=== PATIENT | female | born 1950 | race Caucasian/White ===

== ENCOUNTER 2017-07-27 16:47 | Emergency (ER) | payer MEDICARE, SELFPAY | END 2017-07-27 20:01 | disposition home or self-care (01) | PROVIDERS: Emergency Provider Emergency Medicine; Family Provider Family Medicine; PCP Family Medicine; Visit Provider Emergency Medicine | DX: R47.1 Dysarthria and anarthria (principal) | CPT/HCPCS: 70450; 81003; 81015; 99284 ==

== ENCOUNTER → 2018-01-30 08:14 | Outpatient (CLI) | payer MEDICARE, SELFPAY ==
[2018-01-30 09:40] LABS: Add Manual Diff / Slide Review NO; Basophils Percent Auto 0.6 % (0-2); Hematocrit 37.4 % (36-46); Hemoglobin 12.8 g/dL (12.0-16.0); Mean Corpuscular HGB Conc 34.1 % (30-36); Mean Corpuscular Hemoglobin 31.6 PG (26-34); Mean Corpuscular Volume 92.6 fL (80-100); Monocytes Percent Auto 6.8 % (3-14); Neutrophils Absolute Auto 3300 /uL (3000-5900); Neutrophils Percent Auto 47.6 % (50-75); Platelet Count 194 X10^3/uL (150-400); Red Blood Cell Count 4.04 X10^6/uL (4.0-5.2); Red Cell Distribution Width 12.8 % (11.6-14.8)
[2018-01-30 09:54] LABS: Alanine Aminotransferase 58 IU/L (9-52); Albumin 4.4 g/dL (3.5-5.0); Albumin Globulin Ratio 1.5 (1.0-2.8); Alkaline Phosphatase 89 U/L (38-126); Aspartate Aminotransferase 58 IU/L (14-36); BUN Creatinine Ratio 22.9 (6-22); Bilirubin Total 0.5 mg/dL (0.2-1.3); Blood Urea Nitrogen 16 mg/dL (7-17); Calcium 9.6 mg/dL (8.4-10.2); Carbon Dioxide 28 mmol/L (22-32); Chloride 100 mmol/L (98-107); Cholesterol 239 mg/dL (140-199); Estimated Glomerular Filt Rate > 60.0 mL/min (>60); Glucose 144 mg/dL (80-110); HDL Cholesterol 40 mg/dL (40-60); HEMOLYSIS < 15 (0-50); LDL Cholesterol Calculated 138 mg/dL (<100); Sodium 141 mmol/L (137-145); Total Protein 7.4 g/dL (6.3-8.2); Triglycerides 305 mg/dL (35-150)
[2018-01-30 10:08] LABS: Hemoglobin A1C% w Est Avg Glu 8.2 % (4.0-6.0)
[2018-02-01 08:30] LABS: Valproic Acid (Depakene) Total 74.3 mg/L (50.0-100.0)
== END ==
PROVIDERS: Family Provider Family Medicine; PCP Family Medicine; Visit Provider Psychiatry & Neurology Psychiatry
DX: Z51.81 Encounter for therapeutic drug level monitoring (principal)
CPT/HCPCS: 36415; 80053; 80061; 80164; 83036; 84443; 85025

== ENCOUNTER → 2018-04-26 12:58 | Outpatient (CLI) | payer MEDICARE, SELFPAY ==
[2018-04-26 15:38] LABS: Hemoglobin A1C% w Est Avg Glu 7.9 % (4.0-6.0)
[2018-04-30 03:58] LABS: Valproic Acid (Depakene) Total 128.4 mg/L (50.0-100.0)
== END ==
PROVIDERS: Family Provider Family Medicine; PCP Family Medicine; Visit Provider Psychiatry & Neurology Psychiatry
DX: E11.9 Type 2 diabetes mellitus without complications (principal); E03.9 Hypothyroidism, unspecified; F31.4 Bipolar disorder, current episode depressed, severe, without psychotic features; Z51.81 Encounter for therapeutic drug level monitoring
CPT/HCPCS: 36415; 80164; 83036; 84443

== ENCOUNTER → 2018-05-07 13:00 | Outpatient (CLI) | payer MEDICARE, SELFPAY ==
--- NOTE | 2018-05-07 13:09 | DI.RAD.S_ITS ---
PROCEDURE: XR FOOT RT MIN 3V INDICATIONS: Foot pain, bilaterally, concern for gout vs CMT, recent DM2 TECHNIQUE: 3 views of the foot were acquired. COMPARISON: Hospital, CR, XR ANKLE RT MIN 3V, 05/07/2018, 13:26. FINDINGS: Bones: No fractures or dislocations. A 5 mm lucency is noted at the base of the fifth metatarsal. There is [id number] degenerative joint disease at the first metatarsophalangeal joint and multiple interphalangeal joint. There is calcaneal spurring. Bony erosion of the medial aspect of the navicula. Soft tissues: No tibiotalar joint effusion. Achilles tendon appears normal. IMPRESSION: 1. Mild to moderate degenerative joint disease. 2. There is bony erosion in the medial aspect of the navicula. Cannot rule out gout. 3. Calcaneal spurring. 4. Osteopenia. 5. A benign appearing lucency is noted at the base of the fifth metatarsal, probably a bone cyst. Dictated by: Miriam Acuna M.D. on 05/07/2018 at 16:51 Approved by: Miriam Acuna M.D. on 05/07/2018 at 16:59
--- NOTE | 2018-05-07 13:09 | DI.RAD.S_ITS ---
PROCEDURE: XR FOOT LT MIN 3V INDICATIONS: Foot pain, bilaterally, concern for gout vs CMT, recent DM2 TECHNIQUE: The views of the foot were acquired. COMPARISON: [facility], CR, XR ANKLE LT MIN 3V, 05/07/2018, 13:29. FINDINGS: Bones: There are postsurgical changes with a surgical plate and multiple surgical screws in the distal tibia and fibula. No fractures or dislocations. No suspicious bony lesions. There is mild degenerative joint disease in multiple interphalangeal joints. Osteopenia. Soft tissues: No tibiotalar joint effusion. Achilles tendon appears normal. IMPRESSION: 1. Postsurgical changes. 2. Mild degenerative changes. 3. Osteopenia. Dictated by: Miriam Acuna M.D. on 05/07/2018 at 17:01 Approved by: Miriam Acuna M.D. on 05/07/2018 at 17:03
--- NOTE | 2018-05-07 13:09 | DI.RAD.S_ITS ---
PROCEDURE: XR ANKLE RT MIN 3V INDICATIONS: Foot pain, bilaterally, concern for gout vs CMT, recent DM2 TECHNIQUE: 3 views of the ankle were acquired. COMPARISON: [facility], CR, XR FOOT RT MIN 3V, 05/07/2018, 13:24. FINDINGS: Bones: No fractures or dislocations. Ankle mortise is normally aligned. There is a benign-appearing lucency at the base of the fifth metatarsal. Calcaneal spurring. Soft tissues: No tibiotalar joint effusion. Achilles tendon appears normal. Mild diffuse soft tissue swelling. IMPRESSION: 1. No fracture or dislocation. 2. Calcaneal spurring. Dictated by: Miriam Acuna M.D. on 05/07/2018 at 16:59 Approved by: Miriam Acuna M.D. on 05/07/2018 at 17:00
--- NOTE | 2018-05-07 13:09 | DI.RAD.S_ITS ---
PROCEDURE: XR ANKLE LT MIN 3V INDICATIONS: Foot pain, bilaterally, concern for gout vs CMT, recent DM2 TECHNIQUE: 3 views of the ankle were acquired. COMPARISON: [facility], CR, XR FOOT LT MIN 3V, 05/07/2018, 13:28. FINDINGS: Bones: There is a surgical plate in the distal fibula. Multiple surgical screws are present in distal fibula and distal tibia. No fractures or dislocations. Ankle mortise is normally aligned. No suspicious bony lesions. Soft tissues: No tibiotalar joint effusion. Achilles tendon appears normal. Generalized soft tissue swelling. IMPRESSION: The post surgical changes. No acute adenopathy. Dictated by: Miriam Acuna M.D. on 05/07/2018 at 17:03 Approved by: Miriam Acuna M.D. on 05/07/2018 at 17:04
[2018-05-07 15:05] LABS: Uric Acid 9.2 mg/dL (2.5-6.2)
== END ==
PROVIDERS: Family Medicine; PCP Family Medicine; Visit Provider Family Medicine
DX: M10.9 Gout, unspecified (principal); M79.672 Pain in left foot; M79.671 Pain in right foot; E11.9 Type 2 diabetes mellitus without complications; M19.072 Primary osteoarthritis, left ankle and foot; M19.071 Primary osteoarthritis, right ankle and foot; M77.32 Calcaneal spur, left foot; M77.31 Calcaneal spur, right foot; M85.872 Other specified disorders of bone density and structure, left ankle and foot; M85.871 Other specified disorders of bone density and structure, right ankle and foot
CPT/HCPCS: 36415; 73610; 73630; 84550

== ENCOUNTER 2018-05-11 16:05 | Emergency (ER) | payer MEDICARE, SELFPAY ==
[2018-05-11 16:09] VITALS: BP 144/90; PULSE 95; RESP 18; TEMP 36.4; O2SAT 100; BMI 43.4
--- NOTE | 2018-05-11 16:47 | ED.PSYCH ---
HPI - Psych General Chief Complaint: Psychiatric Symptoms Stated Complaint: PSYCHOTIC SYMPTOMS Time Seen by Provider: 05/11/18 16:39 Source: patient Mode of arrival: ambulatory Limitations: no limitations History of Present Illness HPI Narrative: Patient is a 68-year-old female with known bipolar 1 disorder here for evaluation for which she thinks is a manic episode. Patient states she has been in this state for several days if not a week or longer. She recently saw all her mental health provider who changed her to perphenazine and continued her on her Depakote. Patient states she has been taking these medicines. She has also been taking her Ativan. She states that at home she cannot sleep despite all of her sleep aid medicines. She states that she is not currently hearing voices however she states that she has been in this situation in the past with the lack of sleep and she does start to hear voices as time goes on. She is not suicidal. He is not homicidal. She states that she does not feel safe at home because of paranoia she cannot give a specific thing that she is paranoid about however she states that she paces back in forth around her house. She was at her grandson's birthday constitution party today which she states put me over the edge Related Data Previous Rx's Medication Instructions Recorded lisinopril 10 mg tablet 10 mg PO QDAY #90 tab 10/02/17 atorvastatin 40 mg tablet 40 mg PO HS #90 tab 03/25/18 divalproex ER 500 mg 1,500 mg PO BEDTIME #90 tab 04/30/18 tablet,extended release 24 hr zolpidem 10 mg tablet 10 mg PO BEDTIME #30 tab 04/30/18 levothyroxine 150 mcg tablet 150 mcg PO DAILY #30 tab 05/06/18 lorazepam 1 mg tablet 1 mg PO Q4-6H PRN #60 tab MDD 6mg 05/08/18 perphenazine 8 mg tablet 8 mg PO BID #60 tab 05/08/18 Allergies Allergy/AdvReac Type Severity Reaction Status Date / Time quetiapine [QUETIAPINE] Allergy Severe TONGUE Verified 05/01/18 16:29 SWELLING Sulfa (Sulfonamide Allergy Mild RASH Verified 05/01/18 16:29 Antibiotics) haloperidol [HALOPERIDOL] Allergy Unknown Verified 05/01/18 16:29 lithium [LITHIUM] Allergy Unknown Verified 05/01/18 16:29 risperidone [RISPERIDONE] Allergy Unknown Verified 05/01/18 16:29 Review of Systems Constitutional Denies fever(s), Denies frequent falls, Denies headache(s) and Denies weakness ENT Ears, Nose, Mouth, and Throat: Denies dizziness, Denies headache(s) and Denies disequilibrium Cardiovascular Denies chest pain, Denies syncope and Denies dyspnea Respiratory Denies dyspnea Gastrointestinal Gastrointestinal: Denies abdominal pain, Denies nausea and Denies vomiting Genitourinary Denies dysuria Musculoskeletal Denies myalgias and Denies arthralgias Integumentary/Breasts Denies rash Neurologic Reports behavioral changes, Denies confusion, Denies dizziness, Denies syncope, Denies frequent falls, Denies headache(s), Denies disequilibrium and Denies weakness Psychiatric Reports anxiety, Reports behavioral changes, Denies confusion, Denies depression, Reports difficulty concentrating, Denies auditory hallucinations, Reports irritability, Denies mood swings, Reports paranoia, Denies homicidal ideation and Denies suicidal ideation Hematologic/Lymphatic Comments: Not on anticoagulation Allergic/Immunologic Denies urticaria PFSH Medical History DM type 2 (diabetes mellitus, type 2) (Chronic) Hypothyroidism (Chronic) Hypertension (Chronic) Sleep apnea (Chronic 08/2015) Ankle pain (Chronic 2007) Anxiety (Chronic 1994) Bipolar disorder (Chronic 1989) Cataract (Chronic 2011) Depression (Chronic 1961) Foot pain (Chronic ~2002) Hayfever (Chronic ~1989) Peripheral neuropathy (Chronic 2013) RLS (restless legs syndrome) (Chronic 1999) Urinary incontinence (Chronic) CTS (carpal tunnel syndrome) (Resolved 1987) Chicken pox (Resolved) Fractures (Resolved 2007) Measles (Resolved) Surgical History Anesthesia complication (Resolved) History of carpal tunnel repair (Resolved ~1997) History of surgery (Resolved 04/2008) Family History Child Age: 46 Arthritis Mother Heart disease Family history of fraternal twins Family history of identical twins Levin gestation with first Social History Smoking Status: Never smoker Family History Child Age: 46 Arthritis Mother Heart disease Family history of fraternal twins Family history of identical twins Levin gestation with first Social History Smoking Status: Never smoker Exam Initial Vital Signs Initial Vital Signs: Vital Signs Temperature 97.6 F 05/11/18 16:09 Pulse Rate 95 H 05/11/18 16:09 Respiratory Rate 18 05/11/18 16:09 Blood Pressure 144/90 H 05/11/18 16:09 Pulse Oximetry 100 05/11/18 16:09 Const General: cooperative, healthy appearing, comfortable, well developed, well groomed and No acute distress Orientation: alert, awake and oriented x3 HENMT Head: normal to inspection and normocephalic Resp Effort & Inspection: normal respiratory effort Auscultation: clear to auscultation bilaterally Cardio Rate: regular rate Rhythm: regular rhythm Pulses: radial pulses present GI Inspection: non-distended Palpation: soft, No firm and No tender Skin Lesions: no lesions Rashes: no rashes Neuro General: alert and oriented x3 Cognition: normal cognition Speech: speech normal Gait: normal gait Motor: muscle tone normal throughout Extrem General: normal to inspection, capillary refill normal and No edema Psych Appearance: grossly normal and well kempt Mental Status: mental status grossly normal and other (Flat) Speech and Movement: speech and movement normal, not agitated, speech clear, speech not delayed, speech not pressured and restless Mood: not anxious, No angry and other (Flat) Affect: sad Attitude: cooperative Thought Process: normal Thought Content: normal Judgment: judgment good Course Orders Ordered: ED Orders 05/11/18 16:36 Acetaminophen Stat Complete Blood Count AUTO DIFF Stat Comprehensive Metabolic Panel Stat Ethanol (ETOH) Stat Salicylate Stat Thyroid Stimulating Hormone Stat Valproic Acid (Depakene) Total Stat 05/11/18 16:50 Urine Drug Screen, Rapid Stat Urine Microscopic Stat 05/11/18 16:56 Triiodothyronine T3 Free Stat Vital Signs - 8 hr 05/11/18 16:09 Temperature 97.6 F Pulse Rate 95 H Respiratory Rate 18 Blood Pressure 144/90 H Pulse Oximetry 100 MDM - Psych Lab Data Attestation: I reviewed the patient's lab results. Result diagrams: 05/11/18 16:36 05/11/18 16:36 Lab Results 05/11/18 05/11/18 05/11/18 Range/Units 16:36 16:36 16:36 WBC 8.9 (4.5-11.0) X10^3/uL RBC 3.98 L (4.0-5.2) X10^6/uL Hgb 12.9 (12.0-16.0) g/dL Hct 37.5 (36-46) % MCV 94.1 (80-100) fL MCH 32.5 (26-34) PG MCHC 34.5 (30-36) % RDW 13.8 (11.6-14.8) % Plt Count 187 (150-400) X10^3/uL Neut % (Auto) 53.1 (50-75) % Lymph % (Auto) 36.2 (25-40) % Gillespie % (Auto) 7.5 (3-14) % Eos % (Auto) 2.8 (2-4) % Baso % (Auto) 0.4 (0-2) % Neut # (Auto) 4700 (9602-1007) /uL Lymph # (Auto) 3200 (0738-6011) /uL Gillespie # (Auto) 700 (0-900) /uL Eos # (Auto) 200 (0-450) /uL Baso # (Auto) 0 (0-100) /uL Sodium 136 L (137-145) mmol/L Potassium 5.2 H (3.4-5.1) mmol/L Chloride 94 L (98-107) mmol/L Carbon Dioxide 30 (22-32) mmol/L BUN 21 H (7-17) mg/dL Creatinine 1.00 (0.52-1.04) mg/dL Estimated GFR 55.5 L (>60) mL/min BUN/Creatinine Ratio 21.0 (6-22) Glucose 214 H (80-110) mg/dL Calcium 9.9 (8.4-10.2) mg/dL Total Bilirubin 0.4 (0.2-1.3) mg/dL AST 46 H (14-36) IU/L ALT 43 (9-52) IU/L Alkaline Phosphatase 114 (38-126) U/L Total Protein 7.8 (6.3-8.2) g/dL Albumin 4.5 (3.5-5.0) g/dL Globulin 3.3 (1.7-4.1) g/dL Albumin/Globulin Ratio 1.4 (1.0-2.8) TSH 4.76 H D (0.47-4.68) uIU/mL Free T3 (2.77-5.27) pg/mL Urine RBC (0-5/HPF) Urine WBC (0-5/HPF) Ur Squamous Epith Cells Urine Bacteria (None) Ur Culture Indicated? Salicylates < 1.0 (<20) mg/dL Urine Opiates Screen (Negative) Ur Oxycodone Screen (Negative) Urine Methadone Screen (Negative) Acetaminophen < 10 L (10-30) ug/mL Ur Barbiturates Screen (Negative) U Tricyclic Antidepress (Negative) Ur Phencyclidine Scrn (Negative) Ur Amphetamines Screen (Negative) U Methamphetamines Scrn (Negative) Ur MDMA Scrn (Ecstasy) (Negative) U Benzodiazepines Scrn (Negative) Urine Cocaine Screen (Negative) U Marijuana (THC) Screen (Negative) Ethyl Alcohol < 10 mg/dL 05/11/18 05/11/18 05/11/18 Range/Units 16:50 16:50 16:56 WBC (4.5-11.0) X10^3/uL RBC (4.0-5.2) X10^6/uL Hgb (12.0-16.0) g/dL Hct (36-46) % MCV (80-100) fL MCH (26-34) PG MCHC (30-36) % RDW (11.6-14.8) % Plt Count (150-400) X10^3/uL Neut % (Auto) (50-75) % Lymph % (Auto) (25-40) % Gillespie % (Auto) (3-14) % Eos % (Auto) (2-4) % Baso % (Auto) (0-2) % Neut # (Auto) (9172-3881) /uL Lymph # (Auto) (4519-4295) /uL Gillespie # (Auto) (0-900) /uL Eos # (Auto) (0-450) /uL Baso # (Auto) (0-100) /uL Sodium (137-145) mmol/L Potassium (3.4-5.1) mmol/L Chloride (98-107) mmol/L Carbon Dioxide (22-32) mmol/L BUN (7-17) mg/dL Creatinine (0.52-1.04) mg/dL Estimated GFR (>60) mL/min BUN/Creatinine Ratio (6-22) Glucose (80-110) mg/dL Calcium (8.4-10.2) mg/dL Total Bilirubin (0.2-1.3) mg/dL AST (14-36) IU/L ALT (9-52) IU/L Alkaline Phosphatase (38-126) U/L Total Protein (6.3-8.2) g/dL Albumin (3.5-5.0) g/dL Globulin (1.7-4.1) g/dL Albumin/Globulin Ratio (1.0-2.8) TSH (0.47-4.68) uIU/mL Free T3 3.47 (2.77-5.27) pg/mL Urine RBC None seen (0-5/HPF) Urine WBC 5-10/hpf H (0-5/HPF) Ur Squamous Epith Cells 5-10 /hpf H Urine Bacteria None seen (None) Ur Culture Indicated? Cult not indicated Salicylates (<20) mg/dL Urine Opiates Screen Negative (Negative) Ur Oxycodone Screen Negative (Negative) Urine Methadone Screen Negative (Negative) Acetaminophen (10-30) ug/mL Ur Barbiturates Screen Negative (Negative) U Tricyclic Antidepress Negative (Negative) Ur Phencyclidine Scrn Negative (Negative) Ur Amphetamines Screen Negative (Negative) U Methamphetamines Scrn Negative (Negative) Ur MDMA Scrn (Ecstasy) Negative (Negative) U Benzodiazepines Scrn Positive H (Negative) Urine Cocaine Screen Negative (Negative) U Marijuana (THC) Screen Negative (Negative) Ethyl Alcohol mg/dL Urine Dip Bedside Urine Glucose Negative Bedside Urine Bilirubin - Negative Bedside Urine Ketone +/- 5 Urine Specific [place] 1.015 Bedside Urine Occult Blood +/- Bedside Urine pH 8.5 Bedside Urine Protein ++ 100 Bedside Urine Urobilinogen - Negative Bedside Urine Nitrite - Negative Bedside Urine Leukocytes - Negative Esterase MDM Narrative Medical decision making narrative: Patient with a history bipolar disorder and she states she is in a manic episode. She is not suicidal. Not homicidal. Has an elevated glucose level but is not in DKA. Recently had a change to her thyroid medicine and that has improved her TSH. No emergent condition currently regarding this. She has been taking her medicines. She is medically clear. Patient states she does not feel safe at home because of the paranoia and also the inability to sleep. She states that when she becomes sleep deprived is when she starts having auditory hallucinations. She is not currently having these. Patient would like to be admitted to the hospital. Will start the process of calling for a voluntary admission. Care turned over to night ED provider at change of shift for disposition. Discharge Plan Departure Prescriptions: No Action divalproex [Depakote ER] 500 mg tablet extended release 24 hr 1,500 mg PO BEDTIME Qty: 90 RF: 5 zolpidem 10 mg tablet 10 mg PO BEDTIME Qty: 30 RF: 5 perphenazine 8 mg tablet 8 mg PO BID Qty: 60 RF: 1 lorazepam 1 mg tablet 1 mg PO Q4-6H MDD 6mg PRN (Reason: severe anxiety or agitation) Qty: 60 RF: 0 atorvastatin 40 mg tablet 40 mg PO HS Qty: 90 RF: 2 levothyroxine 150 mcg tablet 150 mcg PO DAILY Qty: 30 RF: 3 lisinopril 10 mg tablet 10 mg PO QDAY Qty: 90 RF: 3
[2018-05-11 17:04] LABS: Acetaminophen < 10 ug/mL (10-30); Alanine Aminotransferase 43 IU/L (9-52); Albumin 4.5 g/dL (3.5-5.0); Albumin Globulin Ratio 1.4 (1.0-2.8); Alkaline Phosphatase 114 U/L (38-126); Aspartate Aminotransferase 46 IU/L (14-36); Bilirubin Total 0.4 mg/dL (0.2-1.3); Blood Urea Nitrogen 21 mg/dL (7-17); Calcium 9.9 mg/dL (8.4-10.2); Carbon Dioxide 30 mmol/L (22-32); Chloride 94 mmol/L (98-107); Estimated Glomerular Filt Rate 55.5 mL/min (>60); Ethanol (ETOH) < 10 mg/dL; Globulin 3.3 g/dL (1.7-4.1); Glucose 214 mg/dL (80-110); HEMOLYSIS 17 (0-50); Potassium 5.2 mmol/L (3.4-5.1); Sodium 136 mmol/L (137-145); Total Protein 7.8 g/dL (6.3-8.2)
[2018-05-11 17:09] LABS: Urine Amphetamines Negative (Negative); Urine Barbiturates Negative (Negative); Urine Benzodiazepines Positive (Negative); Urine Cocaine Negative (Negative); Urine MDMA Negative (Negative); Urine Methadone Negative (Negative); Urine Methamphetamines Negative (Negative); Urine Morphine/Opi cutoff 2000 Negative (Negative); Urine Oxycodone Negative (Negative); Urine Phencyclidine Negative (Negative); Urine Tetrahydrocannabinol Negative (Negative); Urine Tricyclic Antidepressant Negative (Negative)
[2018-05-11 17:12] LABS: Salicylate < 1.0 mg/dL (<20)
[2018-05-11 17:18] LABS: Add Manual Diff / Slide Review NO; Basophils Absolute Auto 0 /uL (0-100); Basophils Percent Auto 0.4 % (0-2); Eosinophils Absolute Auto 200 /uL (0-450); Eosinophils Percent Auto 2.8 % (2-4); Hematocrit 37.5 % (36-46); Hemoglobin 12.9 g/dL (12.0-16.0); Lymphocytes Absolute Auto 3200 /uL (1100-4500); Lymphocytes Percent Auto 36.2 % (25-40); Mean Corpuscular HGB Conc 34.5 % (30-36); Mean Corpuscular Hemoglobin 32.5 PG (26-34); Mean Corpuscular Volume 94.1 fL (80-100); Monocytes Absolute Auto 700 /uL (0-900); Monocytes Percent Auto 7.5 % (3-14); Neutrophils Absolute Auto 4700 /uL (1500-7000); Neutrophils Percent Auto 53.1 % (50-75); Platelet Count 187 X10^3/uL (150-400); Red Blood Cell Count 3.98 X10^6/uL (4.0-5.2); Red Cell Distribution Width 13.8 % (11.6-14.8); White Blood Cell Count 8.9 X10^3/uL (4.5-11.0)
[2018-05-11 17:34] LABS: Thyroid Stimulating Hormone 4.76 uIU/mL (0.47-4.68)
[2018-05-11 17:40] LABS: Free T3, Triiodothyronine Free 3.47 pg/mL (2.77-5.27)
[2018-05-11 17:53] LABS: Bacteria Urine None Seen; Culture Indicated Urine Cult Not Indicated; RBC Urine None Seen (0-5/HPF); Squamous Epithelial Cell Urine 5-10 /HPF; WBC Urine 5-10/HPF (0-5/HPF)
[2018-05-11] MEDS: ONDANSETRON 4 MG ODT SL (18:49)
[2018-05-11 19:16] VITALS: BP 139/78; PULSE 96; RESP 16; O2SAT 94
--- NOTE | 2018-05-11 20:43 | PC.NURSE ---
Patient stated that she was hungry. She was given a sandwich, yogurt and some ice water. She had written a note and stated that she had taken 5mg of her own lorazepam at 2014. I advised the patient not to take any of her own medications at this time and to let us know if she feels as though she needs medication because the RN and physician must keep track of her meds. Patient was given the call light and encouraged to use it when needed. Doctor is aware that she took her own lorazepam.
--- NOTE | 2018-05-11 22:21 | PC.NURSE ---
Patient states she is anxious. Discussed her previous hospitalizations. She has been hospitalized for psychotic episodes three times in past, with first time being in the 90s. States before first time she was hospitalized she was overdosed on thyroid medication for over a year. She began to hear one voice in her head at this time and this worsened to 6-8 voices. She states at one point she was [address] due to the voices in her head. This led to one of the times she was hospitalized in the s. States she needs to be hospitalized now, because she does not want to get to that point again, because with each episode like this, she loses a piece of my mind. Tearful at this time. When asked if she is currently hearing voices, she states now that you mention it, there is one small voice. Very talkative at this time and discussed how she became very paranoid at her apartment earlier and stacked boxes/furniture in front of her door. At this time, she decided to come in to be evaluated. Patient jumping from subject to subject quickly and very fidgety during conversation.
[2018-05-16 13:42] LABS: Valproic Acid (Depakene) Total 97.5 mg/L (50.0-100.0)
== END 2018-05-12 00:15 | disposition left against medical advice (07) ==
PROVIDERS: Emergency Medicine; Internal Medicine; Emergency Provider Emergency Medicine; Family Provider Family Medicine; PCP Family Medicine
DX: F31.9 Bipolar disorder, unspecified (principal)
CPT/HCPCS: 36415; 80053; 80164; 80305; 80320; 80329; 81003; 81015; 84443; 84481; 85025; 93005; 99283; 99284; G0480

== ENCOUNTER 2018-05-16 21:35 | Emergency (ER) | payer MEDICARE, SELFPAY ==
--- NOTE | 2018-05-16 21:40 | ED.PSYCH ---
HPI - Psych General Chief Complaint: Psychiatric Symptoms Stated Complaint: bipolar/manic Time Seen by Provider: 05/16/18 21:38 Source: patient and EMS Mode of arrival: ambulatory Limitations: no limitations History of Present Illness HPI Narrative: Patient is a 68-year-old female presenting voluntarily for manic episode. She has a history of bipolar for which she takes valproic acid for. Her dose was recently increased to help with her olivia. His she says her hands shake she knows that a manic episode is coming. She denies any insomnia or irrational activities. She says she does have suicidal ideations but she has had them for years she has never acted on them. Suicidal ideations are not any worse today. She denies any visual or audio hallucinations. She states she feels like she needs to just medication stablized, she feels like something is not right and is requesting to be in a mental health hospital. MD complaint: altered mental status Relieving factors: none Associated psychiatric symptoms: suicidal ideation (Ongoing for years no changes), homicidal ideation, racing thoughts, auditory hallucinations and visual hallucinations Associated symptoms: confusion and headache Related Data Previous Rx's Medication Instructions Recorded lisinopril 10 mg tablet 10 mg PO QDAY #90 tab 10/02/17 atorvastatin 40 mg tablet 40 mg PO HS #90 tab 03/25/18 divalproex ER 500 mg 1,500 mg PO BEDTIME #90 tab 04/30/18 tablet,extended release 24 hr zolpidem 10 mg tablet 10 mg PO BEDTIME #30 tab 04/30/18 levothyroxine 150 mcg tablet 150 mcg PO DAILY #30 tab 05/06/18 lorazepam 1 mg tablet 1 mg PO Q4-6H PRN #60 tab MDD 6mg 05/08/18 perphenazine 8 mg tablet 8 mg PO BID #60 tab 05/08/18 Allergies Allergy/AdvReac Type Severity Reaction Status Date / Time quetiapine [QUETIAPINE] Allergy Severe TONGUE Verified 05/16/18 22:03 SWELLING Sulfa (Sulfonamide Allergy Mild RASH Verified 05/16/18 22:03 Antibiotics) haloperidol [HALOPERIDOL] Allergy Unknown Verified 05/16/18 22:03 lithium [LITHIUM] Allergy Unknown Verified 05/16/18 22:03 risperidone [RISPERIDONE] Allergy Unknown Verified 05/16/18 22:03 Review of Systems Review of Systems ROS Unobtainable: All systems reviewed & are unremarkable except as noted in HPI and below Constitutional Denies chills, Denies fever(s), Denies lethargy and Denies weakness Cardiovascular Denies chest pain, Denies irregular heart rhythm, Denies lightheadedness, Denies palpitations, Denies dyspnea, Denies dyspnea on exertion and Denies orthopnea Respiratory Denies cough, Denies dyspnea, Denies dyspnea on exertion and Denies wheezing Genitourinary Denies hematuria, Denies flank pain, Denies urinary incontinence and Denies urinary urgency Musculoskeletal Denies back pain, Denies muscle weakness, Denies numbness and Denies tingling Integumentary/Breasts Denies pruritus, Denies erythema, Denies rash and Denies wounds Neurologic Reports behavioral changes, Denies numbness, Denies tingling and Denies weakness Psychiatric Reports as per HPI, Reports anxiety, Reports behavioral changes, Denies change in appetite, Reports depression, Denies auditory hallucinations, Denies hopelessness, Reports mood swings, Reports panic attacks, Denies visual hallucinations, Denies hallucinations, Denies tactile hallucinations, Denies homicidal ideation and Reports suicidal ideation Endocrine Denies palpitations Allergic/Immunologic Denies wheezing FORMERLY [facility] Medical History DM type 2 (diabetes mellitus, type 2) (Chronic) Hypothyroidism (Chronic) Hypertension (Chronic) Sleep apnea (Chronic 08/2015) Ankle pain (Chronic 2007) Anxiety (Chronic 1994) Bipolar disorder (Chronic 1989) Cataract (Chronic 2011) Depression (Chronic 1961) Foot pain (Chronic ~2002) Hayfever (Chronic ~1989) Peripheral neuropathy (Chronic 2013) RLS (restless legs syndrome) (Chronic 1999) Urinary incontinence (Chronic) CTS (carpal tunnel syndrome) (Resolved 1987) Chicken pox (Resolved) Fractures (Resolved 2007) Measles (Resolved) Surgical History Anesthesia complication (Resolved) History of carpal tunnel repair (Resolved ~1997) History of surgery (Resolved 04/2008) Family History Child Age: 46 Arthritis Mother Heart disease Family history of fraternal twins Family history of identical twins Levin gestation with first Social History Smoking Status: Never smoker Family History Child Age: 46 Arthritis Mother Heart disease Family history of fraternal twins Family history of identical twins Levin gestation with first Social History Smoking Status: Never smoker Exam Initial Vital Signs Initial Vital Signs: Vital Signs Temperature 98.9 F 05/16/18 21:50 Pulse Rate 111 H 05/16/18 21:50 Respiratory Rate 19 05/16/18 21:50 Blood Pressure 163/79 H 05/16/18 21:50 Pulse Oximetry 95 05/16/18 21:50 GENERAL: Pleasant cooperative overweight female appears slightly anxious well groomed HEENT: Head atraumatic,EOMI, pupils reactive, CARDIOVASCULAR: Regular rate and rhythm without murmurs, rubs or gallops. RESPIRATORY: Breath sounds equal bilaterally, no wheezes rales or rhonchi. ABDOMEN: Soft, nontender. Normoactive bowel sounds all 4 quadrants. No guarding or rebound. EXTREMITIES: Normal range of motion, no clubbing or edema. Neurovascularly intact NEUROLOGICAL: Alert and oriented x4.Normal gait and speech. Cranial nerves II through XII grossly intact. SKIN: Warm, dry, no laceration, no petechiae, no rashes or lesions. Psych Appearance: grossly normal and well kempt Mental Status: mental status grossly normal Speech and Movement: speech clear, speech not pressured, not restless and slowed movement Mood: anxious mood, euphoric mood, not manic and not paranoid Affect: normal affect Attitude: cooperative Thought Process: no flight of ideas, logical and not tangential Thought Content: compulsions (Talks about her hands shaking and moving) Judgment: judgment good Course Orders Ordered: ED Orders 05/16/18 22:16 Urine Drug Screen, Rapid Stat Urine Microscopic Stat 05/16/18 22:17 Complete Blood Count AUTO DIFF Stat Comprehensive Metabolic Panel Stat Ethanol (ETOH) Stat Thyroid Stimulating Hormone Stat 05/16/18 23:23 EKG-12 Lead Stat Discontinued Medications Diphenhydramine HCl (Benadryl) 50 mg IM NOW ONE Stop: 05/17/18 03:32 Last Admin: 05/17/18 03:51 Dose: 50 mg Olanzapine (Zyprexa Zydis) 10 mg PO NOW ONE Stop: 05/16/18 23:40 Last Admin: 05/16/18 23:41 Dose: 10 mg Vital Signs - 8 hr 02/07/19 23:26 05/17/18 03:23 05/17/18 06:23 Temperature 98.7 F Pulse Rate 96 H 92 H 88 Respiratory Rate 18 20 20 Blood Pressure [Left Arm] 136/63 140/84 139/79 Pulse Oximetry 97 96 MDM - Psych Lab Data Attestation: I reviewed the patient's lab results. Result diagrams: 05/16/18 22:17 05/16/18 22:17 Lab Results 05/16/18 05/16/18 05/16/18 Range/Units 22:16 22:16 22:17 WBC 8.3 (4.5-11.0) X10^3/uL RBC 4.08 (4.0-5.2) X10^6/uL Hgb 13.1 (12.0-16.0) g/dL Hct 38.0 (36-46) % MCV 93.1 (80-100) fL MCH 32.2 (26-34) PG MCHC 34.6 (30-36) % RDW 13.8 (11.6-14.8) % Plt Count 216 (150-400) X10^3/uL Neut % (Auto) 50.4 (50-75) % Lymph % (Auto) 38.1 (25-40) % [place] % (Auto) 6.5 (3-14) % Eos % (Auto) 3.2 (2-4) % Baso % (Auto) 1.8 (0-2) % Neut # (Auto) 4200 (7459-5470) /uL Lymph # (Auto) 3100 (7106-9282) /uL [place] # (Auto) 500 (0-900) /uL Eos # (Auto) 300 (0-450) /uL Baso # (Auto) 100 (0-100) /uL Sodium (137-145) mmol/L Potassium (3.4-5.1) mmol/L Chloride (98-107) mmol/L Carbon Dioxide (22-32) mmol/L BUN (7-17) mg/dL Creatinine (0.52-1.04) mg/dL Estimated GFR (>60) mL/min BUN/Creatinine Ratio (6-22) Glucose (80-110) mg/dL Calcium (8.4-10.2) mg/dL Total Bilirubin (0.2-1.3) mg/dL AST (14-36) IU/L ALT (9-52) IU/L Alkaline Phosphatase (38-126) U/L Total Protein (6.3-8.2) g/dL Albumin (3.5-5.0) g/dL Globulin (1.7-4.1) g/dL Albumin/Globulin Ratio (1.0-2.8) TSH (0.47-4.68) uIU/mL Urine RBC 1-5/hpf (0-5/HPF) Urine WBC None seen (0-5/HPF) Ur Squamous Epith Cells 0-1 /hpf Urine Bacteria None seen (None) Ur Culture Indicated? Cult not indicated Urine Opiates Screen Negative (Negative) Ur Oxycodone Screen Negative (Negative) Urine Methadone Screen Negative (Negative) Ur Barbiturates Screen Negative (Negative) Total Valproic Acid U Tricyclic Antidepress Negative (Negative) Ur Phencyclidine Scrn Negative (Negative) Ur Amphetamines Screen Negative (Negative) U Methamphetamines Scrn Negative (Negative) Ur MDMA Scrn (Ecstasy) Negative (Negative) U Benzodiazepines Scrn Positive H (Negative) Urine Cocaine Screen Negative (Negative) U Marijuana (THC) Screen Negative (Negative) Ethyl Alcohol mg/dL 05/16/18 05/16/18 05/16/18 Range/Units 22:17 22:17 22:17 WBC (4.5-11.0) X10^3/uL RBC (4.0-5.2) X10^6/uL Hgb (12.0-16.0) g/dL Hct (36-46) % MCV (80-100) fL MCH (26-34) PG MCHC (30-36) % RDW (11.6-14.8) % Plt Count (150-400) X10^3/uL Neut % (Auto) (50-75) % Lymph % (Auto) (25-40) % Carlisle % (Auto) (3-14) % Eos % (Auto) (2-4) % Baso % (Auto) (0-2) % Neut # (Auto) (4669-4964) /uL Lymph # (Auto) (5675-8351) /uL [place] # (Auto) (0-900) /uL Eos # (Auto) (0-450) /uL Baso # (Auto) (0-100) /uL Sodium 138 (137-145) mmol/L Potassium 4.2 (3.4-5.1) mmol/L Chloride 94 L (98-107) mmol/L Carbon Dioxide 31 (22-32) mmol/L BUN 22 H (7-17) mg/dL Creatinine 0.80 (0.52-1.04) mg/dL Estimated GFR > 60.0 (>60) mL/min BUN/Creatinine Ratio 27.5 H (6-22) Glucose 330 H D (80-110) mg/dL Calcium 9.7 (8.4-10.2) mg/dL Total Bilirubin 0.2 (0.2-1.3) mg/dL AST 47 H (14-36) IU/L ALT 42 (9-52) IU/L Alkaline Phosphatase 120 (38-126) U/L Total Protein 8.1 (6.3-8.2) g/dL Albumin 4.6 (3.5-5.0) g/dL Globulin 3.5 (1.7-4.1) g/dL Albumin/Globulin Ratio 1.3 (1.0-2.8) TSH 4.47 (0.47-4.68) uIU/mL Urine RBC (0-5/HPF) Urine WBC (0-5/HPF) Ur Squamous Epith Cells Urine Bacteria (None) Ur Culture Indicated? Urine Opiates Screen (Negative) Ur Oxycodone Screen (Negative) Urine Methadone Screen (Negative) Ur Barbiturates Screen (Negative) Total Valproic Acid Cancelled U Tricyclic Antidepress (Negative) Ur Phencyclidine Scrn (Negative) Ur Amphetamines Screen (Negative) U Methamphetamines Scrn (Negative) Ur MDMA Scrn (Ecstasy) (Negative) U Benzodiazepines Scrn (Negative) Urine Cocaine Screen (Negative) U Marijuana (THC) Screen (Negative) Ethyl Alcohol < 10 mg/dL Point of Care Testing Glucose POC 284 Urine Dip Bedside Urine Glucose 1000 mg/dl Bedside Urine Bilirubin + 1 Bedside Urine Ketone +/- 5 Urine Specific [place] 1.015 Bedside Urine Occult Blood + Bedside Urine pH 6.0 Bedside Urine Protein ++ 100 Bedside Urine Urobilinogen - Negative Bedside Urine Nitrite - Negative Bedside Urine Leukocytes - Negative Esterase ECG Data Attestation: I personally reviewed and interpreted this ECG as follows: Prior ECG tracings: available for review Interpretation: Sinus tachycardia rate 100 artifact noted in V5 no acute ST changes no T-wave inversions MDM Narrative Medical decision making narrative: Patient is requesting to be admitted to a psychiatric hospital to help with what she feels are manic symptoms. She has been cooperative and very easy to take care of while she has been in the emergency department she has been pleasant and respectful. She does get anxious and restless. For that she did request Benadryl as a shot. Did not seem to help much. We have arranged for transport to take her to [place]. Initially spoke with rosanne junior who requested the EKG. Discharge Plan Departure Patient Disposition: Xfer Psychiatric Hosp Clinical Impression: Bipolar 1 disorder, manic, moderate Referrals: Alina Corcoran MD [Primary Care Provider] -
[2018-05-16 21:50] VITALS: BP 163/79; PULSE 111; RESP 19; TEMP 37.2; O2SAT 95
[2018-05-16 22:25] LABS: Bacteria Urine None Seen; WBC Urine None Seen (0-5/HPF)
[2018-05-16 22:31] LABS: Urine Amphetamines Negative (Negative); Urine Barbiturates Negative (Negative); Urine Benzodiazepines Positive (Negative); Urine Cocaine Negative (Negative); Urine MDMA Negative (Negative); Urine Methadone Negative (Negative); Urine Methamphetamines Negative (Negative); Urine Morphine/Opi cutoff 2000 Negative (Negative); Urine Oxycodone Negative (Negative); Urine Phencyclidine Negative (Negative); Urine Tetrahydrocannabinol Negative (Negative); Urine Tricyclic Antidepressant Negative (Negative)
[2018-05-16 22:32] LABS: Add Manual Diff / Slide Review NO; Basophils Absolute Auto 100 /uL (0-100); Basophils Percent Auto 1.8 % (0-2); Eosinophils Absolute Auto 300 /uL (0-450); Eosinophils Percent Auto 3.2 % (2-4); Hemoglobin 13.1 g/dL (12.0-16.0); Lymphocytes Absolute Auto 3100 /uL (1100-4500); Lymphocytes Percent Auto 38.1 % (25-40); Mean Corpuscular HGB Conc 34.6 % (30-36); Mean Corpuscular Hemoglobin 32.2 PG (26-34); Mean Corpuscular Volume 93.1 fL (80-100); Monocytes Absolute Auto 500 /uL (0-900); Monocytes Percent Auto 6.5 % (3-14); Neutrophils Absolute Auto 4200 /uL (1500-7000); Neutrophils Percent Auto 50.4 % (50-75); Platelet Count 216 X10^3/uL (150-400); Red Blood Cell Count 4.08 X10^6/uL (4.0-5.2); Red Cell Distribution Width 13.8 % (11.6-14.8); White Blood Cell Count 8.3 X10^3/uL (4.5-11.0)
[2018-05-16 22:33] LABS: Culture Indicated Urine Cult Not Indicated; RBC Urine 1-5/HPF (0-5/HPF); Squamous Epithelial Cell Urine 0-1 /HPF
[2018-05-16 22:40] LABS: Alanine Aminotransferase 42 IU/L (9-52); Albumin 4.6 g/dL (3.5-5.0); Albumin Globulin Ratio 1.3 (1.0-2.8); Alkaline Phosphatase 120 U/L (38-126); Aspartate Aminotransferase 47 IU/L (14-36); BUN Creatinine Ratio 27.5 (6-22); Bilirubin Total 0.2 mg/dL (0.2-1.3); Blood Urea Nitrogen 22 mg/dL (7-17); Calcium 9.7 mg/dL (8.4-10.2); Carbon Dioxide 31 mmol/L (22-32); Chloride 94 mmol/L (98-107); Estimated Glomerular Filt Rate > 60.0 mL/min (>60); Ethanol (ETOH) < 10 mg/dL; Globulin 3.5 g/dL (1.7-4.1); Glucose 330 mg/dL (80-110); HEMOLYSIS < 15 (0-50); Potassium 4.2 mmol/L (3.4-5.1); Sodium 138 mmol/L (137-145); Total Protein 8.1 g/dL (6.3-8.2)
[2018-05-16 23:21] LABS: Thyroid Stimulating Hormone 4.47 uIU/mL (0.47-4.68)
--- NOTE | 2018-05-16 23:24 | PC.NURSE ---
[facility] has a bed available. They requested an EKG and summary faxed to them. Will fax when lab results are finished.
[2018-05-16 23:26] VITALS: BP 136/63; PULSE 96; RESP 18; O2SAT 97
--- NOTE | 2018-05-16 23:37 | PC.NURSE ---
Pt took her HS divalproex and zolpidem per dr brown.
[2018-05-16] MEDS: OLANZapine ODT 10 MG TAB PO (23:41)
--- NOTE | 2018-05-17 00:45 | PC.NURSE ---
[facility] returned call. They do not take transfers until 1000. We will call them back in the AM if we still need a bed.
--- NOTE | 2018-05-17 01:41 | PC.NURSE ---
[facility] will call back at 0600. The doctor there is conerned that her blood sugar is high and wants to recheck it in the morning to see if it stabalizes.
[2018-05-17 03:23] VITALS: BP 140/84; PULSE 92; RESP 20; TEMP 37.1; O2SAT 96
[2018-05-17] MEDS: diphenhydrAMINE 50 MG/ML VIAL IM (03:51)
[2018-05-17 06:23] VITALS: BP 139/79; PULSE 88; RESP 20
[2018-05-17 08:45] VITALS: BP 136/76; PULSE 79; RESP 16; TEMP 36.6; O2SAT 99
== END 2018-05-17 09:48 ==
PROVIDERS: Emergency Provider Emergency Medicine; Family Provider Family Medicine; PCP Family Medicine
DX: F31.12 Bipolar disorder, current episode manic without psychotic features, moderate (principal)
CPT/HCPCS: 36415; 80053; 80305; 80320; 81003; 81015; 82962; 84443; 85025; 93005; 96372; 99284; J1200

== ENCOUNTER → 2018-06-18 12:41 | Outpatient (CLI) | payer MEDICARE, SELFPAY ==
--- NOTE | 2018-06-18 12:45 | DI.ECHO.S_ITS ---
[facility]---------+ [facility] +---------+ : : [address] : : : : [id number] : : : : Phone: [phone]+ Echocardiogram Report + + :Name: MILAD HERNANDEZ V Study Date: 06/18/2018 Height: 63 in : :[facility] Exam Location: [facility] Weight: 242 lb : : Gender: Female BSA: 2.1 m2 : :: 1950 Age: 68 yrs BP: 140/75 mmHg: :Reason For Study: Leg edema : : Performed By: Mali Page : :Referring: VICKY FRIEND : + + Interpretation Summary The ejection fraction is estimated to be 55-60%. The right ventricular systolic pressure is estimated to be at least 33 mmHg based on an estimated right atrial pressure of 15 mm Hg. The IVC is dilated (diameter is greater than 2.1 cm) and it collapses less than 50% with a sniff. This suggests a high right atrial pressure of 15 mm Hg. Procedure: A two-dimensional transthoracic echocardiogram with color flow and Doppler was performed. The study quality was technically adequate. There is no prior echocardiogram noted for this patient. The patient was in normal sinus rhythm during the exam. Left Ventricle: The left ventricle is normal in size, wall thickness, and systolic function without any focal wall motion abnormalities. The ejection fraction is estimated to be 55-60%. There are no obvious focal wall motion abnormalities noted but poor endocardial definition reduces the sensitivity for the detection of such. Diastolic parameters suggest probable normal left ventricular diastolic function and normal filling pressures. Right Ventricle: The right ventricle is normal in size and function. Atria: Both atria are normal in size. There is no Doppler evidence for an interatrial shunt. Mitral Valve: The mitral valve is normal in structure and function. There is trace mitral regurgitation. Aortic Valve: The aortic valve is trileaflet. The aortic valve opens well. No aortic regurgitation is present. Tricuspid Valve: The tricuspid valve is normal in structure and function. There is a trace or physiologic amount of tricuspid regurgitation. The right ventricular systolic pressure is estimated to be at least 33 mmHg based on an estimated right atrial pressure of 15 mm Hg. Pulmonic Valve: The pulmonic valve is not well visualized. There is a trace or physiologic amount of pulmonic regurgitation. Great Vessels: The aortic root is normal size. The ascending aorta is at the upper limits of normal in size. The pulmonary artery is not well visualized, but is probably normal size. The IVC is dilated (diameter is greater than 2.1 cm) and it collapses less than 50% with a sniff. This suggests a high right atrial pressure of 15 mm Hg. Pericardium/ Pleura There is no pericardial effusion. There is no pleural effusion. MMode/2D Measurements & Calculations LVIDd: 4.1 cm LVOT diam: 2.0 cm LVIDs: 2.7 cm Ao root diam: 3.0 cm FS: 34.6 % asc Aorta Diam: 3.4 cm IVSd: 0.94 cm LVPWd: 0.89 cm LV diaz. diameter/BSA (cm/m^2): 1.9 LV sys. diameter/BSA (cm/m^2): 1.3 LA A2 area: 22.8 cm2 RA long axis: 3.5 cm LA A4 area: 18.6 cm2 RA area: 11.2 cm2 LA length (vol): 5.5 cm RA vol: 30.2 ml LA vol: 65.4 ml RA : 14.4 ml/m2 LA vol index: 31.2 ml/m2 IVC diam: 2.1 cm RVD1 (basal): 3.1 cm TAPSE: 2.0 cm Doppler Measurements & Calculations Ao V2 max: 160.4 cm/sec LVOT Max Francisco: 103.5 cm/sec Ao V2 mean: 121.5 cm/sec LV V1 max P.3 mmHg Ao max P.3 mmHg LV V1 VTI: 22.4 cm Ao mean P.3 mmHg HEATHER(I,D): 2.2 cm2 Ao V2 VTI: 31.0 cm HEATHER(V,D): 1.9 cm2 sev ratio: 0.72 HEATHER indexed to BSA (cm^2/m^2): 1.0 MV E max francisco: 97.7 cm/sec TR max francisco: 214.5 cm/sec MV A max francisco: 98.9 cm/sec TR max P.4 mmHg MV E/A: 0.99 PA V2 max: 77.2 cm/sec Med Peak E' Francisco: 6.6 cm/sec PA V2 mean: 56.6 cm/sec E/E' med: 14.7 PA mean P.4 mmHg Lat Peak E' Francisco: 11.1 cm/sec PA Accel Time: 0.09 sec E/E' lat: 8.8 E/e' average: 11.8 MV dec time: 0.20 sec SV(LVOT): 67.6 ml Reading Physician:05:11 PM
== END ==
PROVIDERS: Family Provider Family Medicine; PCP Family Medicine; Referring Provider Psychiatry & Neurology Psychiatry; Visit Provider Family Medicine
DX: R60.0 Localized edema (principal); M85.852 Other specified disorders of bone density and structure, left thigh; Z78.0 Asymptomatic menopausal state
CPT/HCPCS: 77080; 93306

== ENCOUNTER → 2018-07-11 16:48 | Outpatient (CLI) | payer MEDICARE, SELFPAY ==
[2018-07-11 17:38] LABS: Hemoglobin A1C% w Est Avg Glu 6.6 % (4.0-6.0)
[2018-07-11 18:11] LABS: Alanine Aminotransferase 32 IU/L (9-52); Albumin 4.4 g/dL (3.5-5.0); Albumin Globulin Ratio 1.5 (1.0-2.8); Alkaline Phosphatase 81 U/L (38-126); Aspartate Aminotransferase 25 IU/L (14-36); Bilirubin Total 0.4 mg/dL (0.2-1.3); Bilirubin Unconjugated 0.1 mg/dL (0.0-1.1); HEMOLYSIS < 15 (0-50); Total Protein 7.4 g/dL (6.3-8.2)
[2018-07-11 18:12] LABS: Uric Acid 8.1 mg/dL (2.5-6.2)
[2018-07-11 18:27] LABS: Free T4, Direct Thyroxine 2.03 ng/dL (0.78-2.19)
[2018-07-11 18:41] LABS: Thyroid Stimulating Hormone 5.49 uIU/mL (0.47-4.68)
== END ==
PROVIDERS: Psychiatry & Neurology Psychiatry; Family Provider Family Medicine; PCP Family Medicine; Visit Provider Family Medicine
DX: E03.9 Hypothyroidism, unspecified (principal); F31.12 Bipolar disorder, current episode manic without psychotic features, moderate; M10.9 Gout, unspecified; E11.9 Type 2 diabetes mellitus without complications
CPT/HCPCS: 36415; 80076; 83036; 84439; 84443; 84550

== ENCOUNTER → 2018-09-27 15:44 | Outpatient (CLI) | payer MEDICARE, SELFPAY ==
[2018-09-27 17:40] LABS: Uric Acid 7.1 mg/dL (2.5-6.2)
[2018-09-27 17:48] LABS: Hemoglobin A1C% w Est Avg Glu 6.9 % (4.0-6.0)
== END ==
PROVIDERS: Family Provider Family Medicine; PCP Family Medicine; Visit Provider Hospitalist
DX: E11.9 Type 2 diabetes mellitus without complications (principal); M10.9 Gout, unspecified
CPT/HCPCS: 36415; 83036; 84550

== ENCOUNTER → 2018-12-27 11:47 | Outpatient (CLI) | payer MEDICARE, SELFPAY ==
[2018-12-27 12:27] LABS: Hematocrit 34.5 % (36-46); Hemoglobin 11.7 g/dL (12.0-16.0); Red Blood Cell Count 3.56 X10^6/uL (4.0-5.2); White Blood Cell Count 6.5 X10^3/uL (4.5-11.0)
[2018-12-27 12:28] LABS: Add Manual Diff / Slide Review NO; Basophils Absolute Auto 0 /uL (0-100); Basophils Percent Auto 0.5 % (0-2); Eosinophils Absolute Auto 200 /uL (0-450); Eosinophils Percent Auto 2.6 % (2-4); Lymphocytes Absolute Auto 2200 /uL (1100-4500); Lymphocytes Percent Auto 34.3 % (25-40); Monocytes Absolute Auto 500 /uL (0-900); Monocytes Percent Auto 7.4 % (3-14); Neutrophils Absolute Auto 3600 /uL (1500-7000); Neutrophils Percent Auto 55.2 % (50-75); Platelet Count 191 X10^3/uL (150-400); Red Cell Distribution Width 15.3 % (11.6-14.8)
[2018-12-27 12:36] LABS: Hemoglobin A1C% w Est Avg Glu 6.9 % (4.0-6.0)
[2018-12-27 12:41] LABS: Erythrocyte Sedimentation Rate 34 MM/HR (0-20)
[2018-12-27 12:54] LABS: C-Reactive Protein Quant 1.3 mg/dL (<1.0); Uric Acid 6.1 mg/dL (2.5-6.2)
[2018-12-27 12:55] LABS: Rheumatoid Factor < 8.6 IU/mL (<12.0)
[2018-12-31 11:39] LABS: CCP Antibody (IgG) < 16 Units (< 20)
[2019-01-01 07:47] LABS: Valproic Acid (Depakene) Total 102.2 mg/L (50.0-100.0)
== END ==
LOC: LAB 11:48
PROVIDERS: Psychiatry & Neurology Psychiatry; Family Provider Family Medicine; PCP Family Medicine; Visit Provider Family Medicine
DX: M25.50 Pain in unspecified joint (principal); M10.9 Gout, unspecified; F31.12 Bipolar disorder, current episode manic without psychotic features, moderate; E11.9 Type 2 diabetes mellitus without complications
CPT/HCPCS: 36415; 80164; 83036; 84550; 85025; 85651; 86140; 86200; 86430

== ENCOUNTER → 2019-01-27 10:11 | Outpatient (CLI) | payer MEDICARE, SELFPAY ==
[2019-01-27 12:17] LABS: Reticulocyte Count, Percent 1.8 % (1.06-2.63)
[2019-01-27 12:47] LABS: HEMOLYSIS < 15 (0-50); Iron 89 ug/dL (37-170)
[2019-01-27 12:54] LABS: Cholesterol 276 mg/dL (140-199); HDL Cholesterol 45 mg/dL (40-60); LDL Cholesterol Calculated 162 mg/dL (<100); Triglycerides 345 mg/dL (35-150)
[2019-01-27 12:59] LABS: Percent Iron Saturation 23 % (15-50); Total Iron Binding Capacity 393 ug/dL (265-497); Transferrin 333 mg/dL (206-381)
[2019-01-27 13:15] LABS: Ferritin 78.1 ng/mL (11.1-264)
[2019-01-27 13:46] LABS: Folate 15.2 ng/mL (2.76-20.0); Vitamin B12 654 pg/mL (239-931)
[2019-01-30 15:38] LABS: Haptoglobin 170 mg/dL (43-212)
== END ==
LOC: LAB 10:16
PROVIDERS: Family Medicine; PCP Family Medicine; Visit Provider Family Medicine
DX: D64.9 Anemia, unspecified (principal); E78.5 Hyperlipidemia, unspecified
CPT/HCPCS: 36415; 80061; 82607; 82728; 82746; 83010; 83540; 83550; 85045

== ENCOUNTER → 2019-03-26 10:53 | Outpatient (CLI) | payer MEDICARE, SELFPAY ==
[2019-03-26 12:26] LABS: BUN Creatinine Ratio 16.7 (6-22); Blood Urea Nitrogen 20 mg/dL (7-17); Calcium 10.4 mg/dL (8.4-10.2); Carbon Dioxide 33 mmol/L (22-32); Chloride 93 mmol/L (98-107); Estimated Glomerular Filt Rate 44.9 mL/min (>60); Glucose 189 mg/dL (80-110); HEMOLYSIS < 15 (0-50); Potassium 5.2 mmol/L (3.4-5.1); Sodium 139 mmol/L (137-145)
[2019-03-26 12:55] LABS: Thyroid Stimulating Hormone 2.98 uIU/mL (0.47-4.68)
[2019-03-26 13:10] LABS: Creatinine Urine Random 415.3 mg/dL; Microalbumi Creatinin Ratio Ur 99.6 ug/mg CR (<30); Microalbumin Urine Random 41.4 mg/dL (0-1.6)
== END ==
PROVIDERS: Family Medicine; Family Provider Psychiatry & Neurology Psychiatry; PCP Family Medicine; Visit Provider Family Medicine
DX: M10.9 Gout, unspecified (principal); E03.9 Hypothyroidism, unspecified; E11.9 Type 2 diabetes mellitus without complications; I10 Essential (primary) hypertension
CPT/HCPCS: 36415; 80048; 82043; 82570; 84443; 84550

== ENCOUNTER → 2019-03-28 14:09 | Outpatient (CLI) | payer MEDICARE, SELFPAY ==
--- NOTE | 2019-03-28 14:12 | DI.RAD.S_ITS ---
PROCEDURE: XR ANKLE LT MIN 3V INDICATIONS: Fall on a bus, swelling, diffcult to bear wt. TECHNIQUE: 3 views of the ankle were acquired. COMPARISON: [facility], CR, XR ANKLE LT MIN 3V, 05/07/2018, 13:29. [facility], CR, XR ANKLE RT MIN 3V, 05/07/2018, 13:26. FINDINGS: Bones: No fractures or dislocations. Ankle mortise is normally aligned. No suspicious bony lesions. Prior fracture fixation at the ankle level. No sign of disruption of the fixation devices. Soft tissues: No tibiotalar joint effusion. Achilles tendon appears normal. IMPRESSION: No new trauma found. Prior ORIF both medially and laterally. Dictated by: Mik Wall M.D. on 03/28/2019 at 14:52 Approved by: Mik Wall M.D. on 03/28/2019 at 14:53
--- NOTE | 2019-03-28 14:12 | DI.RAD.S_ITS ---
PROCEDURE: XR TIBIA FUBULA RT 2V INDICATIONS: Fall TECHNIQUE: 2 views of the tibia and fibula were acquired. COMPARISON: [facility], CR, XR FOOT LT MIN 3V, 03/28/2019, 14:09. [facility], CR, XR ANKLE LT MIN 3V, 03/28/2019, 14:09. [facility], CR, XR FOOT RT MIN 3V, 03/28/2019, 14:09. [facility], CR, TIB/FIB 2V LEFT, 04/07/2008, 3:33. FINDINGS: Bones: No fractures or dislocations. No suspicious bony lesions. Soft tissues: No suspicious soft tissue calcifications or masses. IMPRESSION: No acute trauma found. If unusual symptoms persist dedicated followup delayed plain films in several days would be recommended. Dictated by: Mik Wall M.D. on 03/28/2019 at 14:54 Approved by: Mik Wall M.D. on 03/28/2019 at 14:56
--- NOTE | 2019-03-28 14:12 | DI.RAD.S_ITS ---
PROCEDURE: XR FOOT LT MIN 3V INDICATIONS: Fall TECHNIQUE: 3 views of the foot were acquired. COMPARISON: [facility], CR, XR FOOT LT MIN 3V, 05/07/2018, 13:28. [facility], CR, XR FOOT RT MIN 3V, 05/07/2018, 13:24. FINDINGS: Bones: No acute fractures or dislocations. No suspicious bony lesions. Soft tissues: No tibiotalar joint effusion. Achilles tendon appears normal. IMPRESSION: Prior ankle ORIF both medially and laterally but no new trauma. Dictated by: Mik Wall M.D. on 03/28/2019 at 14:53 Approved by: Mik Wall M.D. on 03/28/2019 at 14:54
--- NOTE | 2019-03-28 14:12 | DI.RAD.S_ITS ---
PROCEDURE: XR FOOT RT MIN 3V INDICATIONS: Fall TECHNIQUE: 3 views of the foot were acquired. COMPARISON: [facility], CR, XR FOOT LT MIN 3V, 05/07/2018, 13:28. [facility], CR, XR FOOT RT MIN 3V, 05/07/2018, 13:24. FINDINGS: Bones: No fractures or dislocations. No suspicious bony lesions. Soft tissues: No tibiotalar joint effusion. Achilles tendon appears normal. IMPRESSION: No trauma found. Dictated by: Mik Wall M.D. on 03/28/2019 at 14:54 Approved by: Mik Wall M.D. on 03/28/2019 at 14:54
== END ==
PROVIDERS: Family Provider Psychiatry & Neurology Psychiatry; PCP Family Medicine; Visit Provider Nurse Practitioner
DX: S99.912A Unspecified injury of left ankle, initial encounter (principal); S99.922A Unspecified injury of left foot, initial encounter; S99.921A Unspecified injury of right foot, initial encounter; S99.911A Unspecified injury of right ankle, initial encounter; M25.472 Effusion, left ankle; W19.XXXA Unspecified fall, initial encounter
CPT/HCPCS: 73590; 73610; 73630

== ENCOUNTER → 2019-09-10 15:13 | Outpatient (CLI) | payer MEDICARE, SELFPAY ==
[2019-09-10 17:34] LABS: Hemoglobin A1C% w Est Avg Glu 10.5 % (4.0-6.0)
[2019-09-10 17:42] LABS: BUN Creatinine Ratio 24.1 (6-22); Blood Urea Nitrogen 32 mg/dL (7-17); Calcium 9.4 mg/dL (8.4-10.2); Carbon Dioxide 25 mmol/L (22-32); Chloride 98 mmol/L (98-107); Estimated Glomerular Filt Rate 39.8 mL/min (>60); Glucose 228 mg/dL (80-110); HEMOLYSIS < 15 (0-50); Potassium 4.3 mmol/L (3.4-5.1); Sodium 135 mmol/L (137-145)
== END ==
PROVIDERS: Family Provider Psychiatry & Neurology Psychiatry; PCP Family Medicine; Referring Provider Family Medicine; Visit Provider Family Medicine
DX: E11.9 Type 2 diabetes mellitus without complications (principal); N28.9 Disorder of kidney and ureter, unspecified
CPT/HCPCS: 36415; 80048; 83036

== ENCOUNTER → 2019-09-29 12:35 | Outpatient (CLI) | payer MEDICARE, SELFPAY ==
[2019-09-29 13:40] LABS: Appearance Urine UA SL CLOUDY; Bilirubin Urine UA NEGATIVE (NEGATIVE); Color Urine UA YELLOW; Glucose Urine UA NEGATIVE (Negative); Ketones Urine UA NEGATIVE (NEGATIVE); Leukocyte Esterase Urine UA 1+ (NEGATIVE); Nitrite Urine UA NEGATIVE (Negative); Occult Blood Urine UA 2+ (Negative); Protein Urine UA 2+ (Negative); Urobilinogen Urine UA 0.2 E.U./dL (0.2)
[2019-09-29 13:51] LABS: pH Urine UA 5.5 (4.5-8.0)
[2019-09-29 13:52] LABS: RBC Urine 1-5/HPF (0-5/HPF); Squamous Epithelial Cell Urine 1-5 /HPF (0-5/HPF); WBC Urine 30-100/HPF (0-5/HPF)
[2019-09-29 13:53] LABS: Bacteria Urine Moderate (10-30); Culture Indicated Urine Specimen Cultured
== END ==
PROVIDERS: Family Provider Psychiatry & Neurology Psychiatry; PCP Family Medicine; Referring Provider Family Medicine; Visit Provider Family Medicine
DX: R30.0 Dysuria (principal); R39.15 Urgency of urination
CPT/HCPCS: 81001; 87086

== ENCOUNTER → 2020-02-09 13:47 | Outpatient (CLI) | payer MEDICARE, SELFPAY ==
[2020-02-09 15:03] LABS: Hemoglobin A1C% w Est Avg Glu 9.4 % (4.0-6.0)
== END ==
PROVIDERS: Family Provider Psychiatry & Neurology Psychiatry; PCP Family Medicine; Referring Provider Family Medicine; Visit Provider Family Medicine
DX: E11.9 Type 2 diabetes mellitus without complications (principal)
CPT/HCPCS: 36415; 83036

== ENCOUNTER → 2020-03-31 12:11 | Outpatient (CLI) | payer MEDICARE, SELFPAY ==
[2020-03-31 13:26] LABS: Add Manual Diff / Slide Review NO; Basophils Absolute Auto 0 /uL (0-100); Basophils Percent Auto 0.4 % (0-2); Eosinophils Absolute Auto 200 /uL (0-450); Hematocrit 34.7 % (36-46); Hemoglobin 11.5 g/dL (12.0-16.0); Lymphocytes Absolute Auto 3000 /uL (1100-4500); Lymphocytes Percent Auto 47.7 % (25-40); Mean Corpuscular HGB Conc 33.1 % (30-36); Mean Corpuscular Hemoglobin 32.8 PG (26-34); Mean Corpuscular Volume 99.2 fL (80-100); Monocytes Absolute Auto 400 /uL (0-900); Neutrophils Absolute Auto 2700 /uL (1500-7000); Neutrophils Percent Auto 42.9 % (50-75); Platelet Count 146 X10^3/uL (150-400); Red Cell Distribution Width 15.6 % (11.6-14.8); White Blood Cell Count 6.3 X10^3/uL (4.5-11.0)
[2020-03-31 13:36] LABS: Alanine Aminotransferase 27 IU/L (<35); Albumin 4.4 g/dL (3.5-5.0); Albumin Globulin Ratio 1.4 (1.0-2.8); Alkaline Phosphatase 99 U/L (38-126); Aspartate Aminotransferase 33 IU/L (14-36); BUN Creatinine Ratio 25.3 (6-22); Bilirubin Total 0.3 mg/dL (0.2-1.3); Blood Urea Nitrogen 25 mg/dL (7-17); Carbon Dioxide 25 mmol/L (22-32); Chloride 102 mmol/L (98-107); Estimated Glomerular Filt Rate 55.9 mL/min (>60); Globulin 3.1 g/dL (1.7-4.1); Glucose 150 mg/dL (80-110); HEMOLYSIS < 15 (0-50); Sodium 136 mmol/L (137-145); Total Protein 7.5 g/dL (6.3-8.2)
[2020-03-31 13:47] LABS: Potassium 5.5 mmol/L (3.4-5.1)
[2020-04-01 07:39] LABS: Valproic Acid (Depakene) Total 82 ug/mL (50-100)
== END ==
PROVIDERS: Family Provider Psychiatry & Neurology Psychiatry; PCP Family Medicine; Referring Provider Psychiatry & Neurology Psychiatry; Visit Provider Psychiatry & Neurology Psychiatry
DX: Z51.81 Encounter for therapeutic drug level monitoring (principal); F31.75 Bipolar disorder, in partial remission, most recent episode depressed
CPT/HCPCS: 36415; 80053; 80164; 85025

== ENCOUNTER 2020-05-13 18:55 | Observation (INO) | payer MEDICARE, SELFPAY ==
[2020-05-13] VITALS (15 sets, daily range): BP systolic 150–188; BP diastolic 67–90; PULSE 52–89; RESP 0–30; TEMP 36.7–36.8; O2SAT 94–99; BMI 42.6; BMI 43.2
--- NOTE | 2020-05-13 19:06 | ED.EXTPRO ---
HPI - Extremity Problem General Chief complaint: Extremity Injury, Upper Stated complaint: numbness right hand Time Seen by Provider: 05/13/20 19:00 Source: patient and family Mode of arrival: Ambulatory Limitations: no limitations History of Present Illness HPI Narrative: 70-year-old female nonsmoker with history of hypertension, hyperlipidemia, bipolar presents with a chief complaint of numbness and tingling of her right hand in the setting of some dizziness and occasional blurred vision over the past few days. She denies any recent injuries or trauma. She denies any difficulty with speech. She is a rather poor historian but does not think she has had any trouble ambulating. She states that she was seen and evaluated recently and told that the dizziness she had been experiencing is likely a benign vertigo given the reproducibility, duration of 1 minutes or less. She has had no ear pain, sore throat, nasal congestion or cough. She denies fever or chills. MD Complaint: other Onset (ago): hour(s) Location: right Radiation: none Relieving factors: nothing Exacerbating factors: nothing Associated symptoms: other Related Data Home Medications Medication Instructions Recorded Confirmed cholecalciferol (vitamin D3) 125 5,000 unit PO DAILY 09/10/18 05/13/20 mcg (5,000 unit) capsule multivitamin 1 tab PO DAILY 04/30/20 05/13/20 Previous Rx's Medication Instructions Recorded miscellaneous medical supply #1 each 06/04/18 indomethacin 25 mg capsule See Rx Instructions PO TID PRN #40 06/23/19 cap allopurinol 300 mg tablet 300 mg PO DAILY #90 tab 04/06/20 atorvastatin 40 mg tablet See Rx Instructions .ROUTE 04/06/20 .COMPLEX #90 tab levothyroxine 150 mcg tablet See Rx Instructions .ROUTE 04/06/20 .COMPLEX #90 tab lisinopril 10 mg tablet See Rx Instructions .ROUTE 04/06/20 .COMPLEX #90 tab metformin 500 mg tablet 1,000 mg PO BID #360 tab 04/06/20 divalproex 250 mg tablet,extended 1,750 mg PO BEDTIME #210 tab 04/30/20 release 24 hr lorazepam 1 mg tablet 1 mg PO BID PRN #15 tab 04/30/20 zolpidem 10 mg tablet 10 mg PO BEDTIME #30 tab 04/30/20 Allergies Allergy/AdvReac Type Severity Reaction Status Date / Time quetiapine [QUETIAPINE] Allergy Severe TONGUE Verified 05/13/20 19:11 SWELLING Sulfa (Sulfonamide Allergy Mild RASH Verified 05/13/20 19:11 Antibiotics) haloperidol [HALOPERIDOL] Allergy Unknown Verified 05/13/20 19:11 lithium [LITHIUM] Allergy Unknown Verified 05/13/20 19:11 risperidone [RISPERIDONE] Allergy Unknown Verified 05/13/20 19:11 perphenazine AdvReac uncontrolled Verified 05/13/20 19:11 hand shaking Review of Systems Constitutional Constitutional: Denies chills, Denies fatigue, Denies fever(s), Denies frequent falls, Denies lethargy and Denies weakness Eyes Eyes: Denies change in vision, Denies eye discharge, Denies irritation and Reports loss of vision ENT Ears, Nose, Mouth, and Throat: Denies change in voice, Reports dizziness, Denies neck pain, Denies sore throat and Denies throat swelling Cardiovascular Cardiovascular: Denies chest pain, Denies irregular heart rhythm, Denies lightheadedness, Denies palpitations, Denies dyspnea, Denies dyspnea on exertion and Denies orthopnea Respiratory Respiratory: Denies cough, Denies dyspnea, Denies dyspnea on exertion and Denies wheezing Gastrointestinal Gastrointestinal: Denies abdominal pain, Denies change in bowel habits, Denies diarrhea, Denies nausea and Denies vomiting Musculoskeletal Musculoskeletal: Denies neck pain and Reports numbness Integumentary/Breasts Skin/Breast: Denies pruritus, Denies erythema, Denies rash and Denies wounds Neurologic Neurologic: Denies behavioral changes, Denies confusion, Reports dizziness, Denies frequent falls, Reports loss of vision, Reports numbness and Denies weakness Psychiatric Psychiatric: Denies anxiety, Denies behavioral changes, Denies confusion, Denies depression, Denies homicidal ideation and Denies suicidal ideation Endocrine Endocrine: Denies fatigue, Denies flushing and Denies palpitations Hematologic/Lymphatic Hematologic/Lymphatic: Denies easy bruising Allergic/Immunologic Allergic/Immunologic: Denies urticaria, Denies throat swelling and Denies wheezing Patient History Medical History Ankle pain (2007) Anxiety (1994) Bipolar disorder (1989) Bipolar I disorder, most recent episode depressed, severe without psychotic features Cataract (2011) Chicken pox CTS (carpal tunnel syndrome) (1987) Depression (196) DM type 2 (diabetes mellitus, type 2) Foot pain (~2002) Fractures (2007) Hayfever (~1989) Hyperlipidemia Hypertension Hypothyroidism Measles Peripheral neuropathy (2013) RLS (restless legs syndrome) (1999) Sleep apnea (08/2015) Urinary incontinence Surgical History Anesthesia complication History of carpal tunnel repair (~1997) History of surgery (04/2008) Family History Child Age: 48 Arthritis Mother Heart disease Family history of fraternal twins Family history of identical twins Levin gestation with first Social History marital status: number of children: 2 household members: none lives independently: Yes caregiver/support person: No housing: house pets and animals: No education level: high school occupational status: unemployed leisure activities: reading and volunteer work other: walk,garden,visit friends,presybeterian,word puzzles seatbelt use: always water heater temp set < 120 deg: Yes working smoke detector in home: Yes fire extinguisher in home: Yes carbon monox detector in home: Yes Smoking Status: Never smoker second hand exposure: No alcohol intake: current substance use type: does not use during the past year weight has: other well-balanced diet: rarely or never daily servings fruits/ve-1 caffeine: Yes eating out: 1-3 times/week frequency: 3-4 times per week duration: 15-30 minutes/day Smoking Status: Never smoker alcohol intake frequency: 0-2 drinks per day Substance Use Type: does not use Exam Narrative Exam Narrative: GENERAL: [70] year old patient appears stated age. Well-nourished, well-developed patient, in mild distress. Flat affect, clear speech, slow, pressured with accurate answers, baseline per family. HEAD: Atraumatic. Normocephalic. EYES: Pupils equal round and reactive. Extraocular motions intact. No scleral icterus. No injection or drainage. No nystagmus appreciated ENT: Nose without bleeding, purulent drainage. Throat without erythema, tonsillar hypertrophy or exudate. Airway patent. NECK: Trachea midline. Non tender CARDIOVASCULAR: Regular rate and rhythm without murmurs, gallops, or rubs. RESPIRATORY: Clear to auscultation. Breath sounds equal bilaterally. No wheezes, rales, or rhonchi. GASTROINTESTINAL: Abdomen soft, non-tender, nondistended. EXTREMITIES: No edema or joint tenderness. BACK: Nontender without deformity or crepitance. No flank tenderness. NEURO: AOx3. SKIN: No rash or erythema of visible areas Initial Vital Signs Initial Vital Signs: Vital Signs Temperature 98.0 F 05/13/20 19:06 Pulse Rate 89 05/13/20 19:06 Respiratory Rate 16 05/13/20 19:06 Blood Pressure 188/90 H 05/13/20 19:06 Pulse Oximetry 98 05/13/20 19:06 Scores NIH Stroke Scale Level of Conciousness: Alert, keenly responsive Ask month/age: Answers both questions correctly. Open/close eyes, close hand: Performs both tasks correctly Best gaze horizontal: Normal Visual dow: No visual loss Facial palsy: Normal symetrical movement Left arm drift: No drift for full 10 sec Right arm drift: No drift for full 10 sec Left leg drift: No drift for full 5 sec Right leg drift: No drift for full 5 sec Limb ataxia: Absent Sensory on face/arms/legs: Mild to moderate sensory loss, can tell touch Best language: No aphasia, normal Dysarthria: Normal Extinction or inattention: No abnormality Total NIH Stroke scale score: 1 Course Orders Ordered: ED Orders 05/13/20 20:28 CT head/brain wo con Stat EKG-12 Lead Stat 05/13/20 20:39 Urine Drug Screen, Rapid Stat Urine Microscopic Stat 05/13/20 20:50 Basic Metabolic Panel Stat Complete Blood Count AUTO DIFF Stat Partial Thromboplastin Time Stat Prothrombin Time INR Stat 05/13/20 22:21 COVID19 Stat Sodium Chloride (Normal Saline 0.9%) 1,000 mls @ 150 mls/hr IV CONT GEO Last Admin: 05/13/20 21:16 Dose: 150 mls/hr Documented by: PONCE Discontinued Medications Aspirin (Aspirin 81 Mg Chew Tab) 324 mg PO NOW ONE Stop: 05/13/20 22:30 Consultations Consultation #1: Dr. Love is happy to accept on behalf of Dr. Corcoran Vital Signs Vital signs: Vital Signs - 8 hr 05/13/20 19:06 05/13/20 19:26 05/13/20 19:27 Temperature 98.0 F Pulse Rate 89 85 84 Respiratory Rate 16 Blood Pressure 188/90 H 164/77 H Pulse Oximetry 98 97 97 05/13/20 19:28 05/13/20 19:30 05/13/20 20:00 Temperature 98.2 F Pulse Rate 83 85 Respiratory Rate Blood Pressure 155/70 H Pulse Oximetry 98 98 05/13/20 20:37 05/13/20 20:51 05/13/20 21:03 Temperature Pulse Rate 52 L 83 84 Respiratory Rate 0 L Blood Pressure 175/81 H Pulse Oximetry 94 98 MDM - Extremity (Nontraumatic) Lab Data Result diagrams: 05/13/20 20:50 05/13/20 20:50 Labs: Lab Results 05/13/20 05/13/20 05/13/20 Range/Units 20:39 20:39 20:50 WBC 7.0 (4.5-11.0) X10^3/uL RBC 3.55 L (4.0-5.2) X10^6/uL Hgb 11.7 L (12.0-16.0) g/dL Hct 35.4 L (36-46) % MCV 99.6 (80-100) fL MCH 32.9 (26-34) PG MCHC 33.1 (30-36) % RDW 15.5 H (11.6-14.8) % Plt Count 157 (150-400) X10^3/uL Neut % (Auto) 47.7 L (50-75) % Lymph % (Auto) 42.6 H (25-40) % [place] % (Auto) 6.3 (3-14) % Eos % (Auto) 2.9 (2-4) % Baso % (Auto) 0.5 (0-2) % Neut # (Auto) 3300 (2638-7312) /uL Lymph # (Auto) 3000 (4575-3877) /uL [place] # (Auto) 400 (0-900) /uL Eos # (Auto) 200 (0-450) /uL Baso # (Auto) 0 (0-100) /uL PT (10.1-12.7) SECONDS INR (0.9-1.3) APTT (26.4-36.2) SECONDS Sodium (137-145) mmol/L Potassium (3.4-5.1) mmol/L Chloride (98-107) mmol/L Carbon Dioxide (22-32) mmol/L BUN (7-17) mg/dL Creatinine (0.52-1.04) mg/dL Estimated GFR (>60) mL/min BUN/Creatinine Ratio (6-22) Glucose (80-110) mg/dL Calcium (8.4-10.2) mg/dL Urine RBC 0-1/hpf (0-5/HPF) Urine WBC None seen (0-5/HPF) Ur Squamous Epith Cells 0-1 /hpf (0-5/HPF) Urine Bacteria Occasional (0-1) D (None) Hyaline Casts 0-1/lpf (None) Ur Culture Indicated? Cult not indicated U Opiates 300ng/mL cut Negative (Negative) Ur Oxycodone Screen Negative (Negative) Urine Methadone Screen Negative (Negative) Ur Barbiturates Screen Negative (Negative) U Tricyclic Antidepress Negative (Negative) Ur Phencyclidine Scrn Negative (Negative) Ur Amphetamines Screen Negative (Negative) U Methamphetamines Scrn Negative (Negative) Ur MDMA Scrn (Ecstasy) Negative (Negative) U Benzodiazepines Scrn Negative (Negative) Urine Cocaine Screen Negative (Negative) U Marijuana (THC) Screen Negative (Negative) 05/13/20 05/13/20 Range/Units 20:50 20:50 WBC (4.5-11.0) X10^3/uL RBC (4.0-5.2) X10^6/uL Hgb (12.0-16.0) g/dL Hct (36-46) % MCV (80-100) fL MCH (26-34) PG MCHC (30-36) % RDW (11.6-14.8) % Plt Count (150-400) X10^3/uL Neut % (Auto) (50-75) % Lymph % (Auto) (25-40) % [place] % (Auto) (3-14) % Eos % (Auto) (2-4) % Baso % (Auto) (0-2) % Neut # (Auto) (1887-8090) /uL Lymph # (Auto) (4876-6261) /uL [place] # (Auto) (0-900) /uL Eos # (Auto) (0-450) /uL Baso # (Auto) (0-100) /uL PT 10.4 (10.1-12.7) SECONDS INR 0.9 (0.9-1.3) APTT 30 (26.4-36.2) SECONDS Sodium 138 (137-145) mmol/L Potassium 5.0 (3.4-5.1) mmol/L Chloride 100 (98-107) mmol/L Carbon Dioxide 33 H (22-32) mmol/L BUN 28 H (7-17) mg/dL Creatinine 0.96 (0.52-1.04) mg/dL Estimated GFR 57.8 L (>60) mL/min BUN/Creatinine Ratio 29.2 H (6-22) Glucose 194 H (80-110) mg/dL Calcium 9.8 (8.4-10.2) mg/dL Urine RBC (0-5/HPF) Urine WBC (0-5/HPF) Ur Squamous Epith Cells (0-5/HPF) Urine Bacteria (None) Hyaline Casts (None) Ur Culture Indicated? U Opiates 300ng/mL cut (Negative) Ur Oxycodone Screen (Negative) Urine Methadone Screen (Negative) Ur Barbiturates Screen (Negative) U Tricyclic Antidepress (Negative) Ur Phencyclidine Scrn (Negative) Ur Amphetamines Screen (Negative) U Methamphetamines Scrn (Negative) Ur MDMA Scrn (Ecstasy) (Negative) U Benzodiazepines Scrn (Negative) Urine Cocaine Screen (Negative) U Marijuana (THC) Screen (Negative) Point of Care Testing Glucose POC 199 Urine Dip Bedside Urine Glucose Negative Bedside Urine Bilirubin - Negative Bedside Urine Ketone - Negative Urine Specific [place] 1.015 Bedside Urine Occult Blood - Negative Bedside Urine pH 7 Bedside Urine Protein + 30 Bedside Urine Urobilinogen - Negative Bedside Urine Nitrite - Negative Bedside Urine Leukocytes - Negative Esterase Imaging Data CT scan - head: Radiologist's Impression: Madhav Coats Alcides 70 F [address] [id number] Scan ReportSigned Patient: Madhav Coats VMR#: [id number]: 1950cct:[id number]/Sex: 70 / FDate of Service: 05/13/20Loc: EDAccession Number: [id number] Procedure: CT head/brain wo con Ordering Provider: Kendrick Gonzalez D.O. PROCEDURE: CT HEAD/BRAIN WO CON INDICATIONS: few days of dizziness, some headache, occasional vision krishna TECHNIQUE: Noncontrast 4.5 mm thick angled axial sections acquired from the foramen magnum to the vertex, with coronal and sagittal reformats. For radiation dose reduction, the following was used: automated exposure control, adjustment of mA and/or kV according to patient size. COMPARISON: [facility], CT, HEAD WITHOUT CONTRAST, 07/27/2017, 18:49. FINDINGS: Image quality: Excellent. CSF spaces: Basal cisterns are patent. No extra-axial fluid collections. The ventricles are symmetric in size and shape. Brain: No intracranial bleeds or masses. There is cerebral volume loss for age, with resultant ventricular and sulcal prominence. There are periventricular and deep white matter chronic small vessel ischemic changes. There is intracranial internal carotid artery atherosclerosis. Skull and face: Calvarium and visualized facial bones appear intact, without suspicious lesions. Sinuses: Visualized sinuses and mastoids are clear. IMPRESSION: No acute intracranial disease process. Dictated by: Tegan Gilbert MD, PhD on 05/13/2020 at 21:04 Approved by: Tegan Gilbert MD, PhD on 05/13/2020 at 21:05 ECG Data Attestation EKG: I personally reviewed and interpreted this ECG as follows: Interpretation: EKG is normal sinus rhythm rate [84 ] and free of any signs of ischemia or ectopy. No ST segmental elevation or depression. No T wave inversions MDM Narrative Medical decision making narrative: Patient with neuro symptoms including dizziness, vision change and R hand numbness, tingling, and maybe weakness. Her dizziness has been about 2 weeks and initially sounded like classic BPPV, however now there is no nystagmus or obbvious reproduction. Her vision changes, which are very nonspecific have been off and on for about a week. Her fingers were numb 3 days ago and full hand became involved today. Neck etiology considered, but thought unlikely given constellation of symptoms, lack of reproduction, change with axial load. She is outside any window for TPA and not a candidate for thrombolysis. She will require hospitalization for futher workup including likely MRI and/or ECHO. Discharge Plan Departure Patient Disposition: Admitted as Observation Clinical Impression: Brain TIA Admit Date/Time: 05/13/20 22:37 Admit Provider: Farhan Love
--- NOTE | 2020-05-13 20:28 | DI.CT.S_ITS ---
PROCEDURE: CT HEAD/BRAIN WO CON INDICATIONS: few days of dizziness, some headache, occasional vision krishna TECHNIQUE: Noncontrast 4.5 mm thick angled axial sections acquired from the foramen magnum to the vertex, with coronal and sagittal reformats. For radiation dose reduction, the following was used: automated exposure control, adjustment of mA and/or kV according to patient size. COMPARISON: [facility], CT, HEAD WITHOUT CONTRAST, 07/27/2017, 18:49. FINDINGS: Image quality: Excellent. CSF spaces: Basal cisterns are patent. No extra-axial fluid collections. The ventricles are symmetric in size and shape. Brain: No intracranial bleeds or masses. There is cerebral volume loss for age, with resultant ventricular and sulcal prominence. There are periventricular and deep white matter chronic small vessel ischemic changes. There is intracranial internal carotid artery atherosclerosis. Skull and face: Calvarium and visualized facial bones appear intact, without suspicious lesions. Sinuses: Visualized sinuses and mastoids are clear. IMPRESSION: No acute intracranial disease process. Dictated by: Tegan Gilbert MD, PhD on 05/13/2020 at 21:04 Approved by: Tegan Gilbert MD, PhD on 05/13/2020 at 21:05
[2020-05-13 20:56] LABS: UR Morphine/Opiate cutoff 300 Negative (Negative); Ur Creatinine Normal (Normal); Ur Specific Gravity Normal (Normal); Urine Amphetamines Negative (Negative); Urine Barbiturates Negative (Negative); Urine Benzodiazepines Negative (Negative); Urine Cocaine Negative (Negative); Urine MDMA Negative (Negative); Urine Methadone Negative (Negative); Urine Methamphetamines Negative (Negative); Urine Oxycodone Negative (Negative); Urine Phencyclidine Negative (Negative); Urine Tetrahydrocannabinol Negative (Negative); Urine Tricyclic Antidepressant Negative (Negative); Urine pH Normal (Normal)
[2020-05-13 21:06] LABS: Add Manual Diff / Slide Review NO; Basophils Absolute Auto 0 /uL (0-100); Basophils Percent Auto 0.5 % (0-2); Eosinophils Absolute Auto 200 /uL (0-450); Eosinophils Percent Auto 2.9 % (2-4); Hematocrit 35.4 % (36-46); Hemoglobin 11.7 g/dL (12.0-16.0); Lymphocytes Absolute Auto 3000 /uL (1100-4500); Lymphocytes Percent Auto 42.6 % (25-40); Mean Corpuscular HGB Conc 33.1 % (30-36); Mean Corpuscular Hemoglobin 32.9 PG (26-34); Mean Corpuscular Volume 99.6 fL (80-100); Monocytes Absolute Auto 400 /uL (0-900); Monocytes Percent Auto 6.3 % (3-14); Neutrophils Absolute Auto 3300 /uL (1500-7000); Neutrophils Percent Auto 47.7 % (50-75); Platelet Count 157 X10^3/uL (150-400); Red Blood Cell Count 3.55 X10^6/uL (4.0-5.2); Red Cell Distribution Width 15.5 % (11.6-14.8)
[2020-05-13 21:07] LABS: WBC Urine None Seen (0-5/HPF)
[2020-05-13] MEDS: SODIUM CHLORIDE 0.9% 1,000 ML 150 ML IV (21:16)
[2020-05-13 21:17] LABS: INR 0.9 (0.9-1.3); Prothrombin Time 10.4 SECONDS (10.1-12.7)
[2020-05-13 21:19] LABS: Bacteria Urine Occasional (0-1); Culture Indicated Urine Cult Not Indicated; Hyaline Casts Urine 0-1/LPF; RBC Urine 0-1/HPF (0-5/HPF); Squamous Epithelial Cell Urine 0-1 /HPF (0-5/HPF)
[2020-05-13 21:20] LABS: PTT Partial Thromboplastin Tim 30 SECONDS (26.4-36.2)
[2020-05-13 21:22] LABS: BUN Creatinine Ratio 29.2 (6-22); Blood Urea Nitrogen 28 mg/dL (7-17); Calcium 9.8 mg/dL (8.4-10.2); Carbon Dioxide 33 mmol/L (22-32); Chloride 100 mmol/L (98-107); Estimated Glomerular Filt Rate 57.8 mL/min (>60); Glucose 194 mg/dL (80-110); HEMOLYSIS 23 (0-50); Sodium 138 mmol/L (137-145)
[2020-05-13 22:56] LABS: COVID19 -Nasal RAPID Negative (Negative)
[2020-05-13] MEDS: ASPIRIN 81 MG CHEW TAB 324 MG PO (23:31)
--- NOTE | 2020-05-13 23:33 | PC.NURSE ---
Report given to Lin; will bring patient up when dry.
[2020-05-14] VITALS (8 sets, daily range): BP systolic 141–163; BP diastolic 69–82; PULSE 74–82; RESP 16–24; TEMP 36.2–36.7; O2SAT 95–98
[2020-05-14] MEDS: DIVALPROEX ER 250 MG TAB 1750 MG PO (00:38)
--- NOTE | 2020-05-14 00:53 | PC.ADMIT ---
[email or web address] Admission Note: The patient,Madhav Coats,70 y/o, was given written information regarding hospital policies, unit procedures and contact persons. Patient's smoking status: Never smoker. Vital Signs - 8 hr 05/13/20 19:06 05/13/20 19:26 05/13/20 19:27 Temperature 98.0 F Pulse Rate 89 85 84 Respiratory Rate 16 Blood Pressure 188/90 H 164/77 H Pulse Oximetry 98 97 97 05/13/20 19:28 05/13/20 19:30 05/13/20 20:00 Temperature 98.2 F Pulse Rate 83 85 Respiratory Rate Blood Pressure 155/70 H Pulse Oximetry 98 98 05/13/20 20:37 05/13/20 20:51 05/13/20 21:03 Temperature Pulse Rate 52 L 83 84 Respiratory Rate 0 L Blood Pressure 175/81 H Pulse Oximetry 94 98 05/13/20 21:30 05/13/20 22:00 05/13/20 22:23 Temperature Pulse Rate 83 85 80 Respiratory Rate 29 H 27 H 30 H Blood Pressure 170/88 H Pulse Oximetry 99 98 96 05/13/20 22:30 05/13/20 23:00 05/13/20 23:30 Temperature Pulse Rate 80 80 84 Respiratory Rate 28 H 27 H 19 Blood Pressure 150/67 H 153/69 H 166/73 H Pulse Oximetry 97 99 99 05/14/20 00:21 05/14/20 00:51 Temperature 97.1 F L Pulse Rate 82 Respiratory Rate 24 Blood Pressure 157/82 H Pulse Oximetry 98 98 Patient arrived to room 221 via stretcher from ED in NAD. VSS, afebrile. Sp02 98% RA. Tele SR. Denies pain. A/O X 3. Reports right hand numbness and tingling for a few days now, no other symptoms. Equal strength bilaterally. Up to BR with SBA, steady gait. Oriented to room, call light and plan of care. Verbalized understanding. Call light in reach.
[2020-05-14] MEDS: LEVOTHYROXINE 150 MCG TABLET PO (05:42)
--- NOTE | 2020-05-14 07:00 | DI.ECHO.S_ITS ---
[place] [facility]---------+ [facility] +---------+ : : [address] : : : : [id number] : : : : Phone: [phone] Echocardiogram Report + + :Name: MILAD HERNANDEZ V Study Date: 05/14/2020 Height: 62 in : :[facility] ReadingLocation: Weight: 233 lb : : Gender: Female BSA: 2.0 m2 : :: 1950 Age: 70 yrs BP: 141/73 mmHg: :Reason For Study: TIA : :Ordering Physician: July : :Hospitalist Performed By: Suzette Garcia : :Referring: ANDREA LOPEZ R : + + Interpretation Summary The ejection fraction is estimated to be 50-55%. There is no Doppler evidence for an interatrial shunt. There is no significant valvular heart disease. Procedure: A two-dimensional transthoracic echocardiogram with color flow and Doppler was performed. The study quality was technically adequate. Comparison is made with the echocardiogram of 06/18/2018. The patient was in normal sinus rhythm during the exam. Left Ventricle: The left ventricle is normal in size. Left ventricular wall thickness is normal. There is no ventricular septal defect visualized. The ejection fraction is estimated to be 50-55%. There are no focal wall motion abnormalities. Diastolic parameters suggest a relaxation abnormality of the left ventricle, consistent with probable normal filling pressures. Right Ventricle: The right ventricle is normal in size and function. Atria: Both atria are normal in size. There is no Doppler evidence for an interatrial shunt. Mitral Valve: The mitral valve leaflets appear mildly thickened, but open well. There is no mitral regurgitation noted. Aortic Valve: The aortic valve opens well. The aortic valve is slightly calcified. No aortic regurgitation is present. Tricuspid Valve: Pulmonary artery pressures cannot be estimated because of the lack of a measurable TR jet velocity but the IVC suggests a CVP of around 3 mmHg. Pulmonic Valve: The pulmonic valve is not well seen, but is grossly normal. Great Vessels: The aortic root is normal size. The ascending aorta is normal in size. The aortic arch is normal in size. The IVC is of normal diameter and collapses greater than 50% with a sniff. This suggests a low right atrial pressure of 3 mm Hg. Pericardium/ Pleura There is no pericardial effusion. MMode/2D Measurements & Calculations LVIDd: 4.8 cm LVOT diam: 2.0 cm EPSS: 0.66 cm Ao root diam: 3.1 cm IVSd: 0.97 cm Aortic Jxn: 2.5 cm LVPWd: 0.89 cm asc Aorta Diam: 3.2 cm LV diaz. diameter/BSA (cm/m^2): 2.4 Ao Arch Diam (Prox Trans): 3.3 cm LA A2 area: 22.0 cm2 RA long axis: 4.1 cm LA A4 area: 16.8 cm2 RA area: 8.3 cm2 LA length (vol): 4.9 cm RA vol: 14.1 ml LA vol: 63.8 ml RA : 6.9 ml/m2 LA vol index: 31.3 ml/m2 IVC diam: 1.8 cm RVD1 (basal): 3.5 cm RVD2 (mid): 2.5 cm TAPSE: 1.9 cm Doppler Measurements & Calculations Ao V2 max: 145.3 cm/sec LVOT Max Nilson: 89.3 cm/sec Ao V2 mean: 102.8 cm/sec LV V1 max P.2 mmHg Ao max P.4 mmHg LV V1 VTI: 19.6 cm Ao mean P.6 mmHg HEATHER(I,D): 2.3 cm2 Ao V2 VTI: 26.6 cm HEATHER(V,D): 2.0 cm2 sev ratio: 0.74 HEATHER indexed to BSA (cm^2/m^2): 1.1 MV E max nilson: 77.7 cm/sec PA V2 max: 86.2 cm/sec MV A max nilson: 98.4 cm/sec PA V2 mean: 58.4 cm/sec MV E/A: 0.79 PA mean P.5 mmHg Med Peak E' Nilson: 6.8 cm/sec PA Accel Time: 0.06 sec E/E' med: 11.4 Lat Peak E' Nilson: 8.5 cm/sec E/E' lat: 9.1 E/e' average: 10.2 MV dec time: 0.16 sec MV P1/2t: 46.8 msec MV P1/2t max nilsno: 78.1 cm/sec SV(LVOT): 62.4 [facility](P1/2t): 4.7 cm2 Reading Physician:03:47 PM
--- NOTE | 2020-05-14 07:18 | PM.HP.1 ---
History of Present Illness History of Present Illness Date Patient Seen: 05/14/20 Time Patient Seen: 08:01 Chief complaint: numbness right hand Narrative: 70-year-old female with bipolar disorder hyperlipidemia diabetes hypothyroidism hypertension and sleep apnea presented to the emergency department with right hand numbness tingling and weakness. Patient states her symptoms started 3 days ago. She says it started with tingling. It is isolated to her right hand. She says it is her front and back of her hand. She then began to have numbness in her hand yesterday and felt weak. She presented to the emergency department. She says she had good range of motion she just feels like her his strength was weak. She denies and dropping anything. She says it is just that her hand not her forearm elbow or shoulder. She says she still having her symptoms. She is right-handed. Patient denies any other neurological symptoms such as difficulty with speech. She does have problems with her balance but she has talked to Dr. julius champagne about that multiple times and that is not new. She has not had any problems with her vision. Difficulty with swallowing. She is not aware of any lower extremity numbness or tingling. She has not had these symptoms before. Patient states she has some mild neck discomfort. She had had no changes on her diet. She lives at home by herself. She does drive. She is a little bit of a difficult historian. Patient History Medical History Ankle pain (2007) Anxiety (1994) Bipolar disorder (1989) Bipolar I disorder, most recent episode depressed, severe without psychotic features Cataract (2011) Chicken pox CTS (carpal tunnel syndrome) (1987) Depression (1961) DM type 2 (diabetes mellitus, type 2) Foot pain (~2002) Fractures (2007) Hayfever (~1989) Hyperlipidemia Hypertension Hypothyroidism Measles Peripheral neuropathy (2013) RLS (restless legs syndrome) (1999) Sleep apnea (08/2015) Urinary incontinence Surgical History Anesthesia complication History of carpal tunnel repair (~1997) History of surgery (04/2008) Family & Social History Family History Child Age: 48 Arthritis Mother Heart disease Family history of fraternal twins Family history of identical twins Levin gestation with first Social History: household members none Prior Living Arrangements Apartment/Condo lives independently Yes caregiver/support person No other walk,garden,visit friends,gnosticist,word puzzles Safety & Behavioral: Feels Safe in Current Yes Environment Been Physically Hurt or No Threatened By a Person Suicidal Ideation Description None Tobacco & Substance use: Smoking Status Never smoker alcohol intake current alcohol intake frequency holiday/special occasion Substance Use Type does not use Meds Home Medications and Allergies Home Medications Medication Instructions Recorded Confirmed Type miscellaneous medical supply #1 each 06/04/18 05/13/20 Rx cholecalciferol (vitamin D3) 125 5,000 unit PO DAILY 09/10/18 05/13/20 History mcg (5,000 unit) capsule indomethacin 25 mg capsule See Rx Instructions PO TID PRN #40 06/23/19 05/13/20 Rx cap allopurinol 300 mg tablet 300 mg PO DAILY #90 tab 04/06/20 05/13/20 Rx atorvastatin 40 mg tablet See Rx Instructions .ROUTE 04/06/20 05/13/20 Rx .COMPLEX #90 tab levothyroxine 150 mcg tablet See Rx Instructions .ROUTE 04/06/20 05/13/20 Rx .COMPLEX #90 tab lisinopril 10 mg tablet See Rx Instructions .ROUTE 04/06/20 05/13/20 Rx .COMPLEX #90 tab metformin 500 mg tablet 1,000 mg PO BID #360 tab 04/06/20 05/13/20 Rx divalproex 250 mg tablet,extended 1,750 mg PO BEDTIME #210 tab 04/30/20 05/13/20 Rx release 24 hr lorazepam 1 mg tablet 1 mg PO BID PRN #15 tab 04/30/20 05/13/20 Rx multivitamin 1 tab PO DAILY 04/30/20 05/13/20 History zolpidem 10 mg tablet 10 mg PO BEDTIME #30 tab 04/30/20 05/13/20 Rx Allergies Allergy/AdvReac Type Severity Reaction Status Date / Time quetiapine [QUETIAPINE] Allergy Severe TONGUE Verified 05/13/20 19:11 SWELLING Sulfa (Sulfonamide Allergy Mild RASH Verified 05/13/20 19:11 Antibiotics) haloperidol [HALOPERIDOL] Allergy Unknown Verified 05/13/20 19:11 lithium [LITHIUM] Allergy Unknown Verified 05/13/20 19:11 risperidone [RISPERIDONE] Allergy Unknown Verified 05/13/20 19:11 perphenazine AdvReac uncontrolled Verified 05/13/20 19:11 hand shaking Exam Vital Signs (past 8 hours): - 05/13/20 23:30 05/14/20 00:21 05/14/20 00:51 Temperature 97.1 F L Pulse Rate 84 82 Respiratory Rate 19 24 Blood Pressure 166/73 H 157/82 H Pulse Oximetry 99 98 98 05/14/20 04:10 Temperature 97.2 F L Pulse Rate 74 Respiratory Rate 16 Blood Pressure 141/73 H Pulse Oximetry 96 Oxygen Delivery Method Room Air Objective Labs Result Diagrams: 05/13/20 20:50 05/13/20 20:50 Labs: Laboratory Results - last 24 hr 05/13/20 05/13/20 05/13/20 20:39 20:39 20:50 WBC 7.0 RBC 3.55 L Hgb 11.7 L Hct 35.4 L MCV 99.6 MCH 32.9 MCHC 33.1 RDW 15.5 H Plt Count 157 Neut % (Auto) 47.7 L Lymph % (Auto) 42.6 H [place] % (Auto) 6.3 Eos % (Auto) 2.9 Baso % (Auto) 0.5 Neut # (Auto) 3300 Lymph # (Auto) 3000 [place] # (Auto) 400 Eos # (Auto) 200 Baso # (Auto) 0 PT INR APTT Sodium Potassium Chloride Carbon Dioxide BUN Creatinine Estimated GFR BUN/Creatinine Ratio Glucose Calcium Urine RBC 0-1/hpf Urine WBC None seen Ur Squamous Epith Cells 0-1 /hpf Urine Bacteria Occasional (0-1) D Hyaline Casts 0-1/lpf Ur Culture Indicated? Cult not indicated U Opiates 300ng/mL cut Negative Ur Oxycodone Screen Negative Urine Methadone Screen Negative Ur Barbiturates Screen Negative U Tricyclic Antidepress Negative Ur Phencyclidine Scrn Negative Ur Amphetamines Screen Negative U Methamphetamines Scrn Negative Ur MDMA Scrn (Ecstasy) Negative U Benzodiazepines Scrn Negative Urine Cocaine Screen Negative U Marijuana (THC) Screen Negative SARS-CoV-2 (PCR) 05/13/20 05/13/20 05/13/20 20:50 20:50 22:20 WBC RBC Hgb Hct MCV MCH MCHC RDW Plt Count Neut % (Auto) Lymph % (Auto) [place] % (Auto) Eos % (Auto) Baso % (Auto) Neut # (Auto) Lymph # (Auto) [place] # (Auto) Eos # (Auto) Baso # (Auto) PT 10.4 INR 0.9 APTT 30 Sodium 138 Potassium 5.0 Chloride 100 Carbon Dioxide 33 H BUN 28 H Creatinine 0.96 Estimated GFR 57.8 L BUN/Creatinine Ratio 29.2 H Glucose 194 H Calcium 9.8 Urine RBC Urine WBC Ur Squamous Epith Cells Urine Bacteria Hyaline Casts Ur Culture Indicated? U Opiates 300ng/mL cut Ur Oxycodone Screen Urine Methadone Screen Ur Barbiturates Screen U Tricyclic Antidepress Ur Phencyclidine Scrn Ur Amphetamines Screen U Methamphetamines Scrn Ur MDMA Scrn (Ecstasy) U Benzodiazepines Scrn Urine Cocaine Screen U Marijuana (THC) Screen SARS-CoV-2 (PCR) Negative Assessment & Plan Assessment & Plan narrative: 70-year-old female with right hand numbness tingling and perceived weakness although not appreciated on physical exam. Patient has significant risk factors for cerebrovascular disease including hypertension hyperlipidemia and diabetes. Because of her concerning symptoms she will be admitted the hospital and workup and evaluation further for cerebrovascular disease. Patient will have a MRI MRA stroke protocol. Depending on with shows we may consider doing a carotid ultrasound if she has significant signs of plaquing. Her EKG shows she has normal sinus rhythm. Telemetry monitoring overnight shows no signs of atrial arrhythmia is. She will have an echocardiogram although I do not hear a significant murmur of her heart. Will have her work with physical therapy today. There no speech deficits. See how she does with ambulation and further workup at evaluate her for potential of cerebrovascular disease. Risk factors will be modified including her blood pressure cholesterol and she will be placed on anti-platelet. She has SCDs for DVT prophylaxis. Hyperlipidemia. Patient is on outpatient statin this will be continued during her hospital stay. Hypertension. Patient's blood pressure is well controlled currently she will be continued on her lisinopril. Diabetes. Patient is on metformin. Will continue with monitoring closely her blood sugars during her hospital stay she will be continued on her metformin. She will have insulin sliding scale coverage. Bipolar disorder. Patient is on Depakote 250 mg this will be continued. Hypothyroidism. Patient is on thyroid replacement. DVT prophylaxis with SCDs. Disposition and plan. Proceed with ongoing cerebrovascular workup today. Quality VTE Deep Vein Thrombosis/Pulmonary Embolism Present on Admission: No
[2020-05-14] MEDS: CHOLECALCIFEROL (VITAMIN D3) 1,000 UNIT TABLET 5000 UNIT PO (08:49)
[2020-05-14] MEDS: lisinopriL 10 MG TABLET PO (08:50)
[2020-05-14] MEDS: ASPIRIN EC 81 MG TABLET PO (08:50)
[2020-05-14] MEDS: METFORMIN HCL 500 MG TABLET 1000 MG PO ×2 (08:50→16:51)
[2020-05-14] MEDS: MULTIVITAMIN 1 TABLET 1 TAB PO (08:50)
[2020-05-14] MEDS: ENOXAPARIN 40 MG/0.4 ML SYRINGE SUBCUT (08:51)
[2020-05-14] MEDS: allopurinoL 300 MG TABLET PO (08:54)
--- NOTE | 2020-05-14 10:59 | PC.NURSE ---
Addendum entered by Alba Serrano R.N. 05/14/20 11:05: Called Dr. Alberts's nurse line and requested Ativan for pt. Nurse stated she will pass the message along. Original Note: MRI/ECHO. pt left room for MRI and Echo around 1030 and returned promptly. pt refusing MRI due to clostophobia and is now stating she feels anxious and asking for Ativan. pt takes Ativan at home but there is nothing currently ordered. I will get with hospitalist to see if she can have some ordered. pt back on tele and ICU aware.
--- NOTE | 2020-05-14 11:22 | PC.NURSE ---
Addendum entered by Alba Serrano R.N. 05/14/20 15:28: CBG at lunch 163 1 unit administered. pt does not take insulin at home so I provided education on hypoglycemia, pt confirmed and no questions remain. Echo in room around 1245. SBA to BR, BMx2 this shift. Original Note: AM Shift note. pt AO and receptive to care. pt is a poor historian and unable to concretely provide dates to injuries or when her s/s started to occur. pt has right AC PIV flushing. Tele: NSR. Denying pain. Showing weakness to right upper extremity compared to left, able to squeeze and do ADL's but states that she has pain and mild tingling to RUE. pt also states that she has chronic right shoulder pain but unable to express if this pain is new or part of her chronic shoulder pain. Steady on her feet, denying concerns with ambulation. Down to MRI/Echo earlier in shift and quickly returned d/t closterphobia. I called Dr. Alberts's office and he prescribed a one-time dose of Ativan (0.5mg IV). ACHS CBA this morning was 124. Tolerating an ADA diet. CATALOGUE AND [employer]ODUCTS MANAGER assisted with a shower. No other concerns expressed to me thus far.
[2020-05-14] MEDS: INSULIN ASPART 100 UNIT/ML INSULN PEN SUBCUT ×2 (11:43→16:23)
[2020-05-14] MEDS: LORazepam 2 MG/ML INJ 0.5 MG IV (11:55)
--- NOTE | 2020-05-14 12:44 | PC.NURSE ---
Meagan. Dr. Storey from [facility]'s Psychology team called to let us know that this patient is also one of theirs. She stated to call her or her team if there is anything they need from us or to have Dr. Corcoran's team put in a consultation. Meagan's nurse extension is [phone].
--- NOTE | 2020-05-14 15:02 | CM.DANOTE ---
Discharge Planning/Care Management DCP: assessment: case received, EMR reviewed and went to room now to meet pt. Found her lying in dark, on CPAP. Appeared to be sleeping deeply. Pt is a 70 year old female who admitted late last night to care of A physician team. PCP: Dr. Jewell Alberts saw pt today. Pt is also followed closely by DR. Storey/psychiatrist at [facility] and has offered to follow pt while she is in the hospital if this is needed. (see RN note from today.) [facility] Admission status: OBS: confirmed by UR RN Abhinav. Pt admitted with complaint of numbness in R hand. MRI ordered but not completed due to pt's claustrophobia. Do not see that PT/OT are ordered at this time. Pt has identified Lynne Guthrie as her emergency contact and also her designated visitor during her hospital stay. Contact #: [phone]. Will plan to check in with pt tomorrow as more is known and continue the dcplanning assessment process. CM Discharge Assessment Start: 05/14/20 14:56 Freq: Status: Active Protocol: Document 05/14/20 14:57 ITV (Rec: 05/14/20 15:00 ITV [id number]) Discharge Planning Assessment Advance Directives? No History Provided By Medical Record Has Patient been admitted in last 30 No days? Prior Living Arrangements Apartment/Condo Household Members none Type of transportation used prior to Drives own vehicle admit Review Status In Process
--- NOTE | 2020-05-14 17:17 | PM.DS.1 ---
History of Present Illness History of Present Illness Chief complaint: numbness right hand Narrative: 70-year-old female with bipolar disorder hyperlipidemia diabetes hypothyroidism hypertension and sleep apnea presented to the emergency department with right hand numbness tingling and weakness. Patient states her symptoms started 3 days ago. She says it started with tingling. It is isolated to her right hand. She says it is her front and back of her hand. She then began to have numbness in her hand yesterday and felt weak. She presented to the emergency department. She says she had good range of motion she just feels like her his strength was weak. She denies and dropping anything. She says it is just that her hand not her forearm elbow or shoulder. She says she still having her symptoms. She is right-handed. Patient denies any other neurological symptoms such as difficulty with speech. She does have problems with her balance but she has talked to Dr. julius champagne about that multiple times and that is not new. She has not had any problems with her vision. Difficulty with swallowing. She is not aware of any lower extremity numbness or tingling. She has not had these symptoms before. Patient states she has some mild neck discomfort. She had had no changes on her diet. She lives at home by herself. She does drive. She is a little bit of a difficult historian. Discharge Providers Provider Date of admission: 05/13/20 22:37 Discharge Date: 05/14/20 Primary care physician: Alina Corcoran MD Discharge provider: Mike Alberts MD Summary Hospital Course Discharge Diagnosis: Right hand arm weakness Diabetes non-insulin dependent hypertension hyperlipidemia hypothyroidism bipolar disorder Hospital Course: Patient was admitted the hospital for further workup and evaluation of numbness in her hand on the right side with some weakness. During her hospital stay she had no change in of her neurological status. Her NIH stroke scale was 0. She had some subjective numbness. But no appreciated decrease in strength. Her EKG was normal her telemetry monitoring was without significant concerning heart arrhythmias and her echocardiogram was reviewed which showed no significant valvular heart disease or arrhythmia. Patient initial CT scan was read as normal. Tried 2 different times to do an MRI 1 with the medication 1 without. Patient was still unable to do it due to signs and worries of claustrophobia. During her hospital stay she was ambulatory up and down to the bathroom. Able to sit in the chair. She walked unassisted. She had no problems with swallowing. During her hospital stay her diabetes blood pressure cholesterol and thyroid medication were given and her vital signs remained stable. She had no new neurological symptoms. Exam Vital Signs (past 8 hours): - 05/14/20 09:53 05/14/20 12:00 05/14/20 16:00 Temperature 98.1 F 97.6 F Pulse Rate 81 81 Respiratory Rate 20 18 Blood Pressure 150/69 H 154/73 H Pulse Oximetry 95 96 97 Oxygen Delivery Method Room Air Oxygen Flow Rate 0 Objective Labs Result Diagrams: 05/13/20 20:50 05/13/20 20:50 Labs: Laboratory Results - last 24 hr 05/13/20 05/13/20 05/13/20 20:39 20:39 20:50 WBC 7.0 RBC 3.55 L Hgb 11.7 L Hct 35.4 L MCV 99.6 MCH 32.9 MCHC 33.1 RDW 15.5 H Plt Count 157 Neut % (Auto) 47.7 L Lymph % (Auto) 42.6 H [place] % (Auto) 6.3 Eos % (Auto) 2.9 Baso % (Auto) 0.5 Neut # (Auto) 3300 Lymph # (Auto) 3000 [place] # (Auto) 400 Eos # (Auto) 200 Baso # (Auto) 0 PT INR APTT Sodium Potassium Chloride Carbon Dioxide BUN Creatinine Estimated GFR BUN/Creatinine Ratio Glucose Calcium Urine RBC 0-1/hpf Urine WBC None seen Ur Squamous Epith Cells 0-1 /hpf Urine Bacteria Occasional (0-1) D Hyaline Casts 0-1/lpf Ur Culture Indicated? Cult not indicated U Opiates 300ng/mL cut Negative Ur Oxycodone Screen Negative Urine Methadone Screen Negative Ur Barbiturates Screen Negative U Tricyclic Antidepress Negative Ur Phencyclidine Scrn Negative Ur Amphetamines Screen Negative U Methamphetamines Scrn Negative Ur MDMA Scrn (Ecstasy) Negative U Benzodiazepines Scrn Negative Urine Cocaine Screen Negative U Marijuana (THC) Screen Negative SARS-CoV-2 (PCR) 05/13/20 05/13/20 05/13/20 20:50 20:50 22:20 WBC RBC Hgb Hct MCV MCH MCHC RDW Plt Count Neut % (Auto) Lymph % (Auto) [place] % (Auto) Eos % (Auto) Baso % (Auto) Neut # (Auto) Lymph # (Auto) [place] # (Auto) Eos # (Auto) Baso # (Auto) PT 10.4 INR 0.9 APTT 30 Sodium 138 Potassium 5.0 Chloride 100 Carbon Dioxide 33 H BUN 28 H Creatinine 0.96 Estimated GFR 57.8 L BUN/Creatinine Ratio 29.2 H Glucose 194 H Calcium 9.8 Urine RBC Urine WBC Ur Squamous Epith Cells Urine Bacteria Hyaline Casts Ur Culture Indicated? U Opiates 300ng/mL cut Ur Oxycodone Screen Urine Methadone Screen Ur Barbiturates Screen U Tricyclic Antidepress Ur Phencyclidine Scrn Ur Amphetamines Screen U Methamphetamines Scrn Ur MDMA Scrn (Ecstasy) U Benzodiazepines Scrn Urine Cocaine Screen U Marijuana (THC) Screen SARS-CoV-2 (PCR) Negative [facility] Medical History Ankle pain (2007) Anxiety (1994) Bipolar disorder (1989) Bipolar I disorder, most recent episode depressed, severe without psychotic features Cataract (2011) Chicken pox CTS (carpal tunnel syndrome) (1987) Depression (1961) DM type 2 (diabetes mellitus, type 2) Foot pain (~2002) Fractures (2007) Hayfever (~1989) Hyperlipidemia Hypertension Hypothyroidism Measles Peripheral neuropathy (2013) RLS (restless legs syndrome) (1999) Sleep apnea (08/2015) Urinary incontinence Surgical History Anesthesia complication History of carpal tunnel repair (~1997) History of surgery (04/2008) Family History Child Age: 48 Arthritis Mother Heart disease Family history of fraternal twins Family history of identical twins Levin gestation with first Social History marital status: number of children: 2 household members: none lives independently: Yes caregiver/support person: No housing: house pets and animals: No education level: high school occupational status: unemployed leisure activities: reading and volunteer work other: walk,garden,visit friends,confucianism,word puzzles seatbelt use: always water heater temp set < 120 deg: Yes working smoke detector in home: Yes fire extinguisher in home: Yes carbon monox detector in home: Yes Smoking Status: Never smoker second hand exposure: No alcohol intake: current substance use type: does not use during the past year weight has: other well-balanced diet: rarely or never daily servings fruits/ve-1 caffeine: Yes eating out: 1-3 times/week frequency: 3-4 times per week duration: 15-30 minutes/day Discharge Plan Discharge Plan Patient Disposition: Home Discharge orders & Medications Prescriptions: New aspirin 81 mg Tablet,Delayed Release (Dr/Ec) 81 mg PO DAILY Qty: 30 RF: 12 Continued cholecalciferol (vitamin D3) 5,000 unit capsule 5,000 unit PO DAILY RF: 0 multivitamin Tablet 1 tab PO DAILY RF: 0 divalproex 250 mg tablet extended release 24 hr 1,750 mg PO BEDTIME Qty: 210 RF: 1 lorazepam 1 mg tablet 1 mg PO BID PRN (Reason: severe anxiety) Qty: 15 RF: 1 zolpidem 10 mg tablet 10 mg PO BEDTIME Qty: 30 RF: 2 indomethacin 25 mg capsule See Rx Instructions PO TID PRN (Reason: gout) Qty: 40 RF: 0 allopurinol 300 mg tablet 300 mg PO DAILY Qty: 90 RF: 2 atorvastatin 40 mg tablet See Rx Instructions .ROUTE .COMPLEX Qty: 90 RF: 2 levothyroxine 150 mcg tablet See Rx Instructions .ROUTE .COMPLEX Qty: 90 RF: 2 lisinopril 10 mg tablet See Rx Instructions .ROUTE .COMPLEX Qty: 90 RF: 2 metformin 500 mg tablet 1,000 mg PO BID Qty: 360 RF: 2 No Action (DME) miscellaneous medical supply misc See Dose Instructions .ROUTE .MEDSUPPLY Qty: 1 RF: 0 Follow up/Referrals: Alina Corcoran MD [Primary Care Provider] - Visit Report/Discharge Packet Visit Report Forms: Patient Portal/API, Stroke Signs & Symptoms Discharge Data Primary Care Provider: Alina Corcoran Attending Provider: Alina Corcoran Admit Date/Time: 05/13/20 22:37 Quality VTE Deep Vein Thrombosis/Pulmonary Embolism Present on Admission: No
--- NOTE | 2020-05-14 18:02 | PC.NURSE ---
Discharge Note- Patient discharged home per MD. Discharge educationa nd instructions reviewed with patient and signed. Tele monitor removed. IV line removed and bandaid applied. Patient dressed self and packed up all personal belongings. Patient left via wheelchair to private car at 1758.
== END 2020-05-14 17:58 | disposition home or self-care (01) ==
LOC: ED 22:29 → AC 22:37
PROVIDERS: Admitting Provider Internal Medicine; Emergency Provider Emergency Medicine; Family Provider Psychiatry & Neurology Psychiatry; PCP Family Medicine; Referring Provider Emergency Medicine; Visit Provider Family Medicine
DX: R20.0 Anesthesia of skin (principal); I10 Essential (primary) hypertension; E78.5 Hyperlipidemia, unspecified; F31.9 Bipolar disorder, unspecified; R42 Dizziness and giddiness; E11.9 Type 2 diabetes mellitus without complications; Z79.84 Long term (current) use of oral hypoglycemic drugs; Z20.822 Contact with and (suspected) exposure to COVID-19
CPT/HCPCS: 36415; 70450; 80048; 80305; 81003; 81015; 82962; 85025; 85610; 85730; 87635; 93005; 93306; 96361; 96372; 96374; 99284; C9803; G0378; J1650; J2060

== ENCOUNTER → 2020-05-31 15:25 | Outpatient (CLI) | payer MEDICARE, SELFPAY ==
[2020-05-13 23:23] VITALS: BMI 43.2
[2020-06-01 04:07] LABS: Valproic Acid (Depakene) Total 98 ug/mL (50-100)
== END ==
PROVIDERS: Family Provider Psychiatry & Neurology Psychiatry; PCP Family Medicine; Referring Provider Psychiatry & Neurology Psychiatry; Visit Provider Psychiatry & Neurology Psychiatry
DX: F31.75 Bipolar disorder, in partial remission, most recent episode depressed (principal); Z51.81 Encounter for therapeutic drug level monitoring
CPT/HCPCS: 36415; 80164

== ENCOUNTER 2020-06-28 13:45 | Outpatient (RCR) | payer MEDICARE, SELFPAY ==
[2020-05-13 23:23] VITALS: BMI 43.2
--- NOTE | 2020-06-22 17:09 | PT.OIE ---
Current Diagnoses Benign paroxysmal vertigo, unspecified ear (06/22/20) Pain in right shoulder (06/22/20) Stiffness of right shoulder, not elsewhere classified (06/22/20) Dizziness and giddiness (06/22/20) Past Medical History (Last Updated 06/01/20 @ 11:41 by Gianni Storey DO) Ankle pain (2007) Anxiety (1994) Bipolar 1 disorder, depressed, partial remission Bipolar disorder (1989) Bipolar I disorder, most recent episode depressed, severe without psychotic features Cataract (2011) Chicken pox CTS (carpal tunnel syndrome) (1987) Depression (1961) DM type 2 (diabetes mellitus, type 2) Foot pain (~2002) Fractures (2007) Hayfever (~1989) Hyperlipidemia Hypertension Hypothyroidism Measles Peripheral neuropathy (2013) RLS (restless legs syndrome) (1999) Sleep apnea (08/2015) Urinary incontinence Past Surgical History (Last Reviewed 05/14/20 @ 08:05 by Mike Alberts MD) Anesthesia complication History of carpal tunnel repair (~1997) History of surgery (04/2008) Visit Care Team Role Provider Type Alina Corcoran MD Attending Provider Physician Family Provider Primary Care Provider Referring Provider Specialty: [facility] Practice Address: [address] [place] [address], [facility] Email: [email or web address] Physical Therapy Initial Evaluation PT-OP-A Visit Information Start: 06/22/20 15:43 Freq: Status: Active Protocol: Document 06/22/20 14:30 DCW (Rec: 06/22/20 15:59 DCW [id number]) Out-Patient Physical Therapy Visit Information Visit Information Visit Type Initial Evaluation Visit Start Time 14:30 Visit Stop Time 15:15 Total Visit Minutes 45 Visit Number 1 Number of POT WASHER Visits 0 Evaluation Information Evaluation Date 06/22/20 PT-OP-B Current Condition Start: 06/22/20 15:43 Freq: Status: Active Protocol: Document 06/22/20 14:30 DCW (Rec: 06/22/20 15:59 DCW [id number]) Current Condition History of Current Condition Onset Date Four months Current Complaints Tipsiness, imbalance, vertigo, shoulder pain History of Current Condition Pt is a 70 year old fe/male complaining of a four month history of both spontaneous and motion-induced vertigo and imbalance. Pt reports episodes last one minute. Symptoms can occur when lying in bed, or when up walking around. Pt notes symptoms vary from just feeling off balance to spinning to getting her feet crossed up when walking . Pt does report frequent tinnitus. Denies diplopia, dysarthria, discoordination, or decreased mentation/ consciousness. Pt reports symptoms are waxing/waning in nature. Pt has a very complicated medical history, including bipolar disorder, DM II, HTN, neuropathy, and sleep apnea. Pt does note that when she was at her referring doctor's office, the physician noted her eyes were jumping. Pt also complains of right shoulder pain, which was also on her referral, but due to time constraints, will be addressed at a later date. PT-OP-C Subjective Start: 06/22/20 15:43 Freq: Status: Active Protocol: Document 06/22/20 14:30 DCW (Rec: 06/22/20 15:59 DCW [id number]) OP-PT Subjective Patient Comments Patient Comments It does seem to be happening less frequently. Patient Reported Progress Improving Patient Questionnaires Dizziness Handicap Inventory DHI Score 42% DHI Functional Impairment 40 to 59% Impaired (Score 40- 59) Quick Dash- Upper Extremity Quick Dash UE Score 67.5% Quick Dash UE Impairment 60 to 79% Impaired (Score 60- 79) PT-OP-O Vestibular Start: 06/22/20 15:43 Freq: Status: Active Protocol: Document 06/22/20 14:30 DCW (Rec: 06/22/20 15:59 DCW [id number]) Vestibular Assessment Screening Tests Vestibular Artery Screen Negative Auditory Tests Hare Test Within normal limits Rinne Test Negative Air Conduction Results Equal Visual Testing Smooth Pursuits Horizontal WNL Smooth Pursuits Vertical WNL Saccades Horizontal WNL Gaze Evoked Nystagmus With Fixation Negative Gaze Evoked Nystagmus Without Fixation Negative Heave Test Negative Thrust Head Negative Head Shake Negative Positional Testing Juan [place]-Hallpike Positive Right,Downbeating,> 60 Seconds PT-OP-Q Treatments Start: 06/22/20 15:43 Freq: Status: Active Protocol: Document 06/22/20 14:30 DCW (Rec: 06/22/20 15:59 DCW [id number]) Canalithic Repositioning BPPV Treatment Other Affected Canal(s) Anterior canal? Comments Deep Head Hand PT-OP-T Assessment and Plan Start: 06/22/20 15:43 Freq: Status: Active Protocol: Document 06/22/20 14:30 DCW (Rec: 06/22/20 17:08 DCW [id number]) Physical Therapy Assessment Rehab Potential Rehabilitation Potential Good Evaluation Complexity Number of Personal Factors/Comorbidities 3 or More Number of Body Systems Impaired 3 Clinical Presentation at Evaluation Unstable Impairments Impairments Balance,Coordination, Functional Activities, Functional Mobility,Gait,Pain, ROM,Soft Tissue Mobility, Strength,Tone,Vestibular Goals Two Impairment Downbeating nystagmus during [place]-Hallpike testing Correction Goal (LTG) Positional testing negative bilaterally LTG Duration 08/22/20 One Impairment Pt reports instability with position changes and ambulation Residence Supervisor Goal (LTG) Pt to report no instances of stumbling, tripping, or dizziness for a period of two weeks. LTG Duration 08/22/20 Assessment Summary Assessment Pt presented with signs and symptoms somewhat consistent with anterior canal BPPV, however her DDx is complicated . Pt displays sustained downbeating nystagmus during bilateral Juan Luis-Hallpike. Pt also tends to move her eyes a bit independent of the nystagmus, and it was very difficult at this point to determine if there was any torsion or if it was a pure downbeating. Torsional nystagmus during downbeating is typically fairly subtle. Additionally, pt's subjective complaints are partially suggestive of BPPV, with spinning during bed mobility and upon sitting up in the PCP 's office, but her complaints of getting her legs crossed while walking would be an atypical symptoms if it is just BPPV. Finally, downbeating nystagmus is suggestive of Anterior canal BPPV, which is very rare. All that being said, pt responded well to the Deep Head Hang maneuver, and upon re-testing, symptoms were substantially less severe, which again is suggestive of BPPV. If she does, in fact, have a pure downbeating nystagmus, this could be indicative of a central cause of her vertigo, however pt should undergo further vestibular testing and rehabilitation to gauge her response to treatment. Finally , due to time constraints, her shoulder was not addressed at this evaluation, and will need to be assessed at a later time during an upcoming appointment. Physical Therapy Plan Frequency and Duration Frequency of Treatment 2x/Week Duration of Treatment 10 weeks Plan of Care Start Date 06/22/20 Plan of Care End Date 08/31/20 Therapeutic Interventions Therapeutic Interventions Balance Training,Canalithic Repositioning,Coordination Training,Gait Training,Home Exercise Program,Joint Mobilizations,Manual Therapy, Neuromuscular Re-education, Patient/Caregiver Education, Self-Care/Home Management,Soft Tissue Mobilization, Therapeutic Activities, Therapeutic Exercises, Vestibular Rehabilitation Modalities Cold Pack/Ice Massage,Electric Stimulation,Hot Packs, Ultrasound Next Visit Focus/Plan Next Note Type Treatment Note Next Visit Plan Positional testing, CRM as indicated, shoulder assessment
--- NOTE | 2020-06-22 17:09 | PT.OPPOC ---
Physical, Occupational & Speech Therapy At [facility] Current Diagnoses Benign paroxysmal vertigo, unspecified ear (06/22/20) Pain in right shoulder (06/22/20) Stiffness of right shoulder, not elsewhere classified (06/22/20) Dizziness and giddiness (06/22/20) Visit Care Team Role Provider Type Alina Corcoran MD Attending Provider Physician Family Provider Primary Care Provider Referring Provider Specialty: Family Practice Address: [address] [place] [address], [place], [place], [facility] Email: [email or web address] Plan Of Care PT-OP-T Assessment and Plan Start: 06/22/20 15:43 Freq: Status: Active Protocol: Document 06/22/20 14:30 DCW (Rec: 06/22/20 17:08 DCW [id number]) Physical Therapy Assessment Rehab Potential Rehabilitation Potential Good Evaluation Complexity Number of Personal Factors/Comorbidities 3 or More Number of Body Systems Impaired 3 Clinical Presentation at Evaluation Unstable Impairments Impairments Balance,Coordination, Functional Activities, Functional Mobility,Gait,Pain, ROM,Soft Tissue Mobility, Strength,Tone,Vestibular Goals Two Impairment Downbeating nystagmus during Juan Luis-Hallpike testing Blasting Contract Man Goal (LTG) Positional testing negative bilaterally LTG Duration 08/22/20 One Impairment Pt reports instability with position changes and ambulation Blasting Contract Man Goal (LTG) Pt to report no instances of stumbling, tripping, or dizziness for a period of two weeks. LTG Duration 08/22/20 Assessment Summary Assessment Pt presented with signs and symptoms somewhat consistent with anterior canal BPPV, however her DDx is complicated . Pt displays sustained downbeating nystagmus during bilateral Juan [place]-Hallpike. Pt also tends to move her eyes a bit independent of the nystagmus, and it was very difficult at this point to determine if there was any torsion or if it was a pure downbeating. Torsional nystagmus during downbeating is typically fairly subtle. Additionally, pt's subjective complaints are partially suggestive of BPPV, with spinning during bed mobility and upon sitting up in the PCP 's office, but her complaints of getting her legs crossed while walking would be an atypical symptoms if it is just BPPV. Finally, downbeating nystagmus is suggestive of Anterior canal BPPV, which is very rare. All that being said, pt responded well to the Deep Head Hang maneuver, and upon re-testing, symptoms were substantially less severe, which again is suggestive of BPPV. If she does, in fact, have a pure downbeating nystagmus, this could be indicative of a central cause of her vertigo, however pt should undergo further vestibular tesitng and rehabilitation to gauge her response to treatment. Finally , due to time constraints, her shoulder was not addressed at this evaluation, and will need to be assessed at a later time during an upcoming appointment. Physical Therapy Plan Frequency and Duration Frequency of Treatment 2x/Week Duration of Treatment 10 weeks Plan of Care Start Date 06/22/20 Plan of Care End Date 08/31/20 Therapeutic Interventions Therapeutic Interventions Balance Training,Canalithic Repositioning,Coordination Training,Gait Training,Home Exercise Program,Joint Mobilizations,Manual Therapy, Neuromuscular Re-education, Patient/Caregiver Education, Self-Care/Home Management,Soft Tissue Mobilization, Therapeutic Activities, Therapeutic Exercises, Vestibular Rehabilitation Modalities Cold Pack/Ice Massage,Electric Stimulation,Hot Packs, Ultrasound Next Visit Focus/Plan Next Note Type Treatment Note Next Visit Plan Positional testing, CRM as indicated, shoulder assessment Plan of Care Dates Plan of Care Start Date 06/22/20 Plan of Care End Date 08/31/20 Electronically Signed by: Isaac Deal, PT 06/22/20 [id number] Please Sign and Return: I have reviewed this Plan of Care and certify that the skilled therapy services above are required to meet the patient?s needs. Physician Signature Date Printed Name and Credentials Clinical Instructor Signature Printed Name and Credentials
--- NOTE | 2020-06-25 16:21 | PT.OPPN ---
Current Diagnoses Benign paroxysmal vertigo, unspecified ear (06/25/20) Pain in right shoulder (06/25/20) Stiffness of right shoulder, not elsewhere classified (06/25/20) Dizziness and giddiness (06/25/20) Physical Therapy Progress Note PT-OP-A Visit Information Start: 06/22/20 15:43 Freq: Status: Active Protocol: Document 06/25/20 13:45 DCW (Rec: 06/25/20 14:01 DCW [id number]) Out-Patient Physical Therapy Visit Information Visit Information Visit Type Treatment Note Visit Start Time 13:45 Visit Stop Time 14:30 Total Visit Minutes 45 Visit Number 2 Number of CYLINDER BLOCK MECHANIC Visits 0 Evaluation Information Evaluation Date 06/22/20 PT-OP-B Current Condition Start: 06/22/20 15:43 Freq: Status: Active Protocol: Document 06/25/20 13:45 DCW (Rec: 06/25/20 14:29 DCW [id number]) Current Condition History of Current Condition Onset Date Four months Current Complaints Tipsiness, imbalance, vertigo, shoulder pain History of Current Condition Pt is a 70 year old fe/male complaining of a four month history of both spontaneous and motion-induced vertigo and imbalance. Pt reports episodes last one minute. Symptoms can occur when lying in bed, or when up walking around. Pt notes symptoms vary from just feeling off balance to spinning to getting her feet crossed up when walking . Pt does report frequent tinnitus. Denies diplopia, dysarthria, discoordination, or decreased mentation/ consciousness. Pt reports symptoms are waxing/waning in nature. Pt has a very complicated medical history, including bipolar disorder, DM II, HTN, neuropathy, and sleep apnea. Pt does note that when she was at her referring doctor's office, the physician noted her eyes were jumping. Pt also complains of right shoulder pain, which was also on her referral, but due to time constraints, will be addressed at a later date. ADDENDUM 06/25/20: Pt notes her shoulder problems begain two years ago after she got a new mattress, which per pt, has a metal ridge down the center, and she believes this is the likely cause of her shoulder pain. Abducting right arm makes pain worse, and limits her ability to wash dishes and do laundry. Even using her right arm/hand to send a text or write an email can become problematic. PT-OP-C Subjective Start: 06/22/20 15:43 Freq: Status: Active Protocol: Document 06/25/20 13:45 DCW (Rec: 06/25/20 13:48 DCW [id number]) OP-PT Subjective Patient Comments Patient Comments Pt notes that her dizziness has improved, but is still present, and that her shoulder is bothering her today. PT-OP-E Functional Tests Start: 06/22/20 15:43 Freq: Status: Active Protocol: Document 06/25/20 13:45 DCW (Rec: 06/25/20 14:29 DCW [id number]) Functional Tests Apley's Scratch Test Action 1: The subject is instructed to touch the opposite shoulder with his/her hand. This motion checks Glenohumeral adduction, internal rotation , horizontal adduction and scapular protraction Action 2: The subject is instructed to place his/her arm overhead and reach behind the neck to touch his/her upper back. This motion checks Glenohumeral abduction, external rotation and scapular upward rotation and elevation. Action 3: The subject puts his/her hand on the lower back and reaches upward as far as possible. This motion checks glenohumeral adduction, internal rotation and scapular retraction with downward rotation Action 1- Left Lateral opposite shoulder Action 1- Right Anterior opposite shoulder Action 2- Left T3 Action 2- Right Occiput Action 3- Left T8 Action 3- Right T8 PT-OP-F Manual Assessment Start: 06/22/20 15:43 Freq: Status: Active Protocol: Document 06/25/20 13:45 DCW (Rec: 06/25/20 14:29 DCW [id number]) Manual Assessments Soft Tissue Assessment Soft Tissue Mobility Assessment Mod-severe tenderness along right Supraspinatus, tenderness 3/4: pain with wincing Joint Mobility Assessment Joint Mobility Assessment Mild scolotic curve of thoracic spine, resulting in significant right-sided drop of shoulder. PT-OP-K Range of Motion Start: 06/22/20 15:43 Freq: Status: Active Protocol: Document 06/25/20 13:45 DCW (Rec: 06/25/20 14:29 DCW [id number]) Shoulder Goniometric Range of Motion Shoulder Measured in Degrees Right Active Testing Position Sitting Flexion 105 Abduction 95 External Rotation at 0 degrees Abduction 45 Left Active Testing Position Sitting Flexion 150 Abduction 145 External Rotation at 0 degrees Abduction 55 PT-OP-L Special Tests Start: 06/22/20 15:43 Freq: Status: Active Protocol: Document 06/25/20 13:45 DCW (Rec: 06/25/20 14:29 DCW [id number]) Special Tests Shoulder Special Tests Apprehension Test Test Results Positive R Passive ER Rotator Cuff Test Results Negative Drop Arm Rotator Cuff Test Results Positive R [place] Flip Impingement Test Results Positive R Empty Can Test Results Negative Lift-Off Rotator Cuff Test Results Negative Belly Press Test Results Negative Painful arc Test Results Positive R PT-OP-M Strength Start: 06/22/20 15:43 Freq: Status: Active Protocol: Document 06/25/20 13:45 DCW (Rec: 06/25/20 14:29 DCW [id number]) Shoulder Strength Shoulder Manual Muscle Testing Right Flexion 4- Good- Abduction (C5) 4- Good- External Rotation 3+ Fair+ Internal Rotation 5 Normal Left Flexion 4 Good Abduction (C5) 4 Good External Rotation 4- Good- Internal Rotation 5 Normal PT-OP-O Vestibular Start: 06/22/20 15:43 Freq: Status: Active Protocol: Document 06/25/20 13:45 DCW (Rec: 06/25/20 13:59 DCW [id number]) Vestibular Assessment Positional Testing [place]-Hallpike Positive Left,Upbeating,< 60 Seconds PT-OP-T Assessment and Plan Start: 06/22/20 15:43 Freq: Status: Active Protocol: Document 06/25/20 13:45 DCW (Rec: 06/25/20 16:21 DCW [id number]) Physical Therapy Assessment Impairments Impairments Balance,Coordination, Functional Activities, Functional Mobility,Gait,Pain, ROM,Soft Tissue Mobility, Strength,Tone,Vestibular Goals Three Impairment Limited R shoulder ROM Secondary Market Manager Goal (LTG) Improved R shoulder ROM to 120 ? in both flexion and abduction to enable pt to perform laundry without increased pain. LTG Duration 08/22/20 Two Impairment Downbeating nystagmus during Juan Luis-Hallpike testing Nursing Home Goal (LTG) Positional testing negative bilaterally LTG Duration 08/22/20 One Impairment Pt reports instability with position changes and ambulation Nursing Home Goal (LTG) Pt to report no instances of stumbling, tripping, or dizziness for a period of two weeks. LTG Duration 08/22/20 Assessment Summary Assessment Pt presented today with positional symptoms suggestive of left posterior canal BPPV. Pt was treated with a left- sided modified Bhavin maneuver. Pt complained of symptoms in the first and third position, which is normally indicative of a successful treatment. After this treatment, her right shoulder pain was assessed, as this was not able to be addressed at her initial evaluation. Pt presents with symptoms that may be consistent of right supraspinatus impingement, sprain, or potentially a tear. Pt should benefit from skilled therapy focusing on strengthening and improved mobility, as well as continued assessment of positional vertigo symptoms. Physical Therapy Plan Frequency and Duration Frequency of Treatment 2x/Week Duration of Treatment 10 weeks Plan of Care Start Date 06/22/20 Plan of Care End Date 08/31/20 Therapeutic Interventions Therapeutic Interventions Balance Training,Canalithic Repositioning,Coordination Training,Gait Training,Home Exercise Program,Joint Mobilizations,Manual Therapy, Neuromuscular Re-education, Patient/Caregiver Education, Self-Care/Home Management,Soft Tissue Mobilization, Therapeutic Activities, Therapeutic Exercises, Vestibular Rehabilitation Modalities Cold Pack/Ice Massage,Electric Stimulation,Hot Packs, Ultrasound Next Visit Focus/Plan Next Note Type Treatment Note Next Visit Plan Positional testing, CRM as indicated, shoulder assessment
--- NOTE | 2020-06-28 14:28 | PT.OTN ---
Current Diagnoses Benign paroxysmal vertigo, unspecified ear (06/28/20) Pain in right shoulder (06/28/20) Stiffness of right shoulder, not elsewhere classified (06/28/20) Dizziness and giddiness (06/28/20) Physical Therapy Treatment Note PT-OP-A Visit Information Start: 06/22/20 15:43 Freq: Status: Active Protocol: Document 06/28/20 13:46 DCW (Rec: 06/28/20 14:28 DCW [id number]) Out-Patient Physical Therapy Visit Information Visit Information Visit Type Treatment Note Visit Start Time 13:46 Visit Stop Time 14:30 Total Visit Minutes 44 Visit Number 3 Number of PULMONOLOGIST/INTENSIVIST Visits 0 Evaluation Information Evaluation Date 06/22/20 PT-OP-B Current Condition Start: 06/22/20 15:43 Freq: Status: Active Protocol: Document 06/25/20 13:45 DCW (Rec: 06/25/20 14:29 DCW [id number]) Current Condition History of Current Condition Onset Date Four months Current Complaints Tipsiness, imbalance, vertigo, shoulder pain History of Current Condition Pt is a 70 year old fe/male complaining of a four month history of both spontaneous and motion-induced vertigo and imbalance. Pt reports episodes last one minute. Symptoms can occur when lying in bed, or when up walking around. Pt notes symptoms vary from just feeling off balance to spinning to getting her feet crossed up when walking . Pt does report frequent tinnitus. Denies diplopia, dysarthria, discoordination, or decreased mentation/ consciousness. Pt reports symptoms are waxing/waning in nature. Pt has a very complicated medical history, including bipolar disorder, DM II, HTN, neuropathy, and sleep apnea. Pt does note that when she was at her referring doctor's office, the physician noted her eyes were jumping. Pt also complains of right shoulder pain, which was also on her referral, but due to time constraints, will be addressed at a later date. ADDENDUM 06/25/20: Pt notes her shoulder problems begain two years ago after she got a new mattress, which per pt, has a metal ridge down the center, and she believes this is the likely cause of her shoulder pain. Abducting right arm makes pain worse, and limits her ability to wash dishes and do laundry. Even using her right arm/hand to send a text or write an email can become problematic. PT-OP-C Subjective Start: 06/22/20 15:43 Freq: Status: Active Protocol: Document 06/28/20 13:46 DCW (Rec: 06/28/20 14:28 DCW [id number]) OP-PT Subjective Patient Comments Patient Comments My dizziness hadn't been a problem, but then it kicked up again over the weekend. Notes it was not true vertigo, but more of a lightheaded feeling. PT-OP-E Functional Tests Start: 06/22/20 15:43 Freq: Status: Active Protocol: Document 06/25/20 13:45 DCW (Rec: 06/25/20 14:29 DCW [id number]) Functional Tests Apley's Scratch Test Action 1- Left Lateral opposite shoulder Action 1- Right Anterior opposite shoulder Action 2- Left T3 Action 2- Right Occiput Action 3- Left T8 Action 3- Right T8 PT-OP-F Manual Assessment Start: 06/22/20 15:43 Freq: Status: Active Protocol: Document 06/25/20 13:45 DCW (Rec: 06/25/20 14:29 DCW [id number]) Manual Assessments Soft Tissue Assessment Soft Tissue Mobility Assessment Mod-severe tenderness along right Supraspinatus, tenderness 3/4: pain with wincing Joint Mobility Assessment Joint Mobility Assessment Mild scolotic curve of thoracic spine, resulting in significant right-sided drop of shoulder. PT-OP-K Range of Motion Start: 06/22/20 15:43 Freq: Status: Active Protocol: Document 06/25/20 13:45 DCW (Rec: 06/25/20 14:29 DCW [id number]) Shoulder Goniometric Range of Motion Shoulder Right Active Testing Position Sitting Flexion 105 Abduction 95 External Rotation at 0 degrees Abduction 45 Left Active Testing Position Sitting Flexion 150 Abduction 145 External Rotation at 0 degrees Abduction 55 PT-OP-L Special Tests Start: 06/22/20 15:43 Freq: Status: Active Protocol: Document 06/25/20 13:45 DCW (Rec: 06/25/20 14:29 DCW [id number]) Special Tests Shoulder Special Tests Apprehension Test Test Results Positive R Passive ER Rotator Cuff Test Results Negative Drop Arm Rotator Cuff Test Results Positive R [place] Flip Impingement Test Results Positive R Empty Can Test Results Negative Lift-Off Rotator Cuff Test Results Negative Belly Press Test Results Negative Painful arc Test Results Positive R PT-OP-M Strength Start: 06/22/20 15:43 Freq: Status: Active Protocol: Document 06/25/20 13:45 DCW (Rec: 06/25/20 14:29 DCW [id number]) Shoulder Strength Shoulder Manual Muscle Testing Right Flexion 4- Good- Abduction (C5) 4- Good- External Rotation 3+ Fair+ Internal Rotation 5 Normal Left Flexion 4 Good Abduction (C5) 4 Good External Rotation 4- Good- Internal Rotation 5 Normal PT-OP-O Vestibular Start: 06/22/20 15:43 Freq: Status: Active Protocol: Document 06/28/20 13:46 DCW (Rec: 06/28/20 14:28 DCW [id number]) Vestibular Assessment Positional Testing [place]-Hallpike Negative Left,Negative Right PT-OP-Q Treatments Start: 06/22/20 15:43 Freq: Status: Active Protocol: Document 06/28/20 13:46 DCW (Rec: 06/28/20 14:28 DCW [id number]) Cardio Equipment Upper Body Ergometer (UBE) Duration (Minutes) 5 RPM 60 Seat Position 12 Height 3 Other Fwd/Bkwd Therapeutic Exercises Sitting Exercises 1 Sitting Exercise Name AAROM Flexion Side bilateral Equipment Used Pulleys Standing Exercises 3 Standing Exercise Name Shoulder IR Side right Resistance Lv 2 Equipment Used T-band 2 Standing Exercise Name Rows Side bilateral Resistance Lv 2 Equipment Used T-band 1 Standing Exercise Name Shoulder extension Side bilateral Resistance Lv 2 Equipment Used T-band Manual Therapy Treatment Soft Tissue Mobilization 1 Body Location L UT, Supraspinatus, Infraspinatus, Pec Joint Mobilizations 1 Joint R GH Direction Inf Grade III Body Position Sitting Other Other Manual Treatments Positional testing PT-OP-T Assessment and Plan Start: 06/22/20 15:43 Freq: Status: Active Protocol: Document 06/28/20 13:46 DCW (Rec: 06/28/20 14:28 DCW [id number]) Physical Therapy Assessment Impairments Impairments Balance,Coordination, Functional Activities, Functional Mobility,Gait,Pain, ROM,Soft Tissue Mobility, Strength,Tone,Vestibular Goals Three Impairment Limited R shoulder ROM Insurance Producer Goal (LTG) Improved R shoulder ROM to 120 ? in both flexion and abduction to enable pt to perform laundry without increased pain. LTG Duration 08/22/20 Two Impairment Downbeating nystagmus during Juan [place]-Hallpike testing Insurance Producer Goal (LTG) Positional testing negative bilaterally LTG Duration 08/22/20 One Impairment Pt reports instability with position changes and ambulation [facility] Goal (LTG) Pt to report no instances of stumbling, tripping, or dizziness for a period of two weeks. LTG Duration 08/22/20 Assessment Summary Assessment Pt c/o general light- headedness today from supine-> sit during positional testing, but all vestibular testing was negative. Pt still very sore through her shoulder, limited ability to participate in shoulder exercises. Physical Therapy Plan Frequency and Duration Frequency of Treatment 2x/Week Duration of Treatment 10 weeks Plan of Care Start Date 06/22/20 Plan of Care End Date 08/31/20 Therapeutic Interventions Therapeutic Interventions Balance Training,Canalithic Repositioning,Coordination Training,Gait Training,Home Exercise Program,Joint Mobilizations,Manual Therapy, Neuromuscular Re-education, Patient/Caregiver Education, Self-Care/Home Management,Soft Tissue Mobilization, Therapeutic Activities, Therapeutic Exercises, Vestibular Rehabilitation Modalities Cold Pack/Ice Massage,Electric Stimulation,Hot Packs, Ultrasound Next Visit Focus/Plan Next Note Type Treatment Note Next Visit Plan Positional testing, CRM as indicated, shoulder assessment
--- NOTE | 2020-09-14 16:41 | PT.OPDS ---
Current Diagnoses Benign paroxysmal vertigo, unspecified ear (06/28/20) Pain in right shoulder (06/28/20) Stiffness of right shoulder, not elsewhere classified (06/28/20) Dizziness and giddiness (06/28/20) Visit Care Team Role Provider Type Alina Corcoran MD Attending Provider Physician Family Provider Primary Care Provider Referring Provider Specialty: [facility] Practice Address: [address] [place] [address], [place], [address] Email: [email or web address] Visit Number Visit Number 3 Discharge Summary PT-OP-B Current Condition Start: 06/22/20 15:43 Freq: Status: Active Protocol: Document 06/25/20 13:45 DCW (Rec: 06/25/20 14:29 DCW [id number]) Current Condition History of Current Condition Onset Date Four months Current Complaints Tipsiness, imbalance, vertigo, shoulder pain History of Current Condition Pt is a 70 year old fe/male complaining of a four month history of both spontaneous and motion-induced vertigo and imbalance. Pt reports episodes last one minute. Symptoms can occur when lying in bed, or when up walking around. Pt notes symptoms vary from just feeling off balance to spinning to getting her feet crossed up when walking . Pt does report frequent tinnitus. Denies diplopia, dysarthria, discoordination, or decreased mentation/ consciousness. Pt reports symptoms are waxing/waning in nature. Pt has a very complicated medical history, including bipolar disorder, DM II, HTN, neuropathy, and sleep apnea. Pt does note that when she was at her referring doctor's office, the physician noted her eyes were jumping. Pt also complains of right shoulder pain, which was also on her referral, but due to time constraints, will be addressed at a later date. ADDENDUM 06/25/20: Pt notes her shoulder problems begain two years ago after she got a new mattress, which per pt, has a metal ridge down the center, and she believes this is the likely cause of her shoulder pain. Abducting right arm makes pain worse, and limits her ability to wash dishes and do laundry. Even using her right arm/hand to send a text or write an email can become problematic. PT-OP-C Subjective Start: 06/22/20 15:43 Freq: Status: Active Protocol: Document 06/28/20 13:46 DCW (Rec: 06/28/20 14:28 DCW [id number]) OP-PT Subjective Patient Comments Patient Comments My dizziness hadn't been a problem, but then it kicked up again over the weekend. Notes it was not true vertigo, but more of a lightheaded feeling. PT-OP-E Functional Tests Start: 06/22/20 15:43 Freq: Status: Active Protocol: Document 06/25/20 13:45 DCW (Rec: 06/25/20 14:29 DCW [id number]) Functional Tests Apley's Scratch Test Action 1- Left Lateral opposite shoulder Action 1- Right Anterior opposite shoulder Action 2- Left T3 Action 2- Right Occiput Action 3- Left T8 Action 3- Right T8 PT-OP-F Manual Assessment Start: 06/22/20 15:43 Freq: Status: Active Protocol: Document 06/25/20 13:45 DCW (Rec: 06/25/20 14:29 DCW [id number]) Manual Assessments Soft Tissue Assessment Soft Tissue Mobility Assessment Mod-severe tenderness along right Supraspinatus, tenderness 3/4: pain with wincing Joint Mobility Assessment Joint Mobility Assessment Mild scolotic curve of thoracic spine, resulting in significant right-sided drop of shoulder. PT-OP-K Range of Motion Start: 06/22/20 15:43 Freq: Status: Active Protocol: Document 06/25/20 13:45 DCW (Rec: 06/25/20 14:29 DCW [id number]) Shoulder Goniometric Range of Motion Shoulder Right Active Testing Position Sitting Flexion 105 Abduction 95 External Rotation at 0 degrees Abduction 45 Left Active Testing Position Sitting Flexion 150 Abduction 145 External Rotation at 0 degrees Abduction 55 PT-OP-L Special Tests Start: 06/22/20 15:43 Freq: Status: Active Protocol: Document 06/25/20 13:45 DCW (Rec: 06/25/20 14:29 DCW [id number]) Special Tests Shoulder Special Tests Apprehension Test Test Results Positive R Passive ER Rotator Cuff Test Results Negative Drop Arm Rotator Cuff Test Results Positive R [place] Flip Impingement Test Results Positive R Empty Can Test Results Negative Lift-Off Rotator Cuff Test Results Negative Belly Press Test Results Negative Painful arc Test Results Positive R PT-OP-M Strength Start: 06/22/20 15:43 Freq: Status: Active Protocol: Document 06/25/20 13:45 DCW (Rec: 06/25/20 14:29 DCW [id number]) Shoulder Strength Shoulder Manual Muscle Testing Right Flexion 4- Good- Abduction (C5) 4- Good- External Rotation 3+ Fair+ Internal Rotation 5 Normal Left Flexion 4 Good Abduction (C5) 4 Good External Rotation 4- Good- Internal Rotation 5 Normal PT-OP-O Vestibular Start: 06/22/20 15:43 Freq: Status: Active Protocol: Document 06/28/20 13:46 DCW (Rec: 06/28/20 14:28 DCW [id number]) Vestibular Assessment Positional Testing [place]-Hallpike Negative Left,Negative Right PT-OP-T Assessment and Plan Start: 06/22/20 15:43 Freq: Status: Active Protocol: Document 09/14/20 16:40 DCW (Rec: 09/14/20 16:40 DCW [id number]) Physical Therapy Assessment Assessment Summary Assessment Pt requested cancellation of all remaining appointments. Stated she was unable to afford her co-pay at this time . Physical Therapy Plan Discharge Physical Therapy Discharge Reasons Patient Request
== END 2020-09-15 07:50 | disposition home or self-care (01) ==
LOC: PHYS 13:45
PROVIDERS: Family Provider Family Medicine; PCP Family Medicine; Referring Provider Family Medicine; Visit Provider Family Medicine
DX: H81.10 Benign paroxysmal vertigo, unspecified ear (principal); M25.511 Pain in right shoulder; M25.611 Stiffness of right shoulder, not elsewhere classified
CPT/HCPCS: 95992; 97110; 97140; 97162

== ENCOUNTER → 2020-07-28 15:15 | Outpatient (CLI) | payer MEDICARE, SELFPAY ==
[2020-05-13 23:23] VITALS: BMI 43.2
[2020-07-28 15:44] LABS: Add Manual Diff / Slide Review NO; Basophils Absolute Auto 0 /uL (0-100); Basophils Percent Auto 0.5 % (0-2); Eosinophils Absolute Auto 200 /uL (0-450); Eosinophils Percent Auto 2.9 % (2-4); Hematocrit 37.3 % (36-46); Hemoglobin 12.6 g/dL (12.0-16.0); Lymphocytes Absolute Auto 2900 /uL (1100-4500); Lymphocytes Percent Auto 36.6 % (25-40); Mean Corpuscular HGB Conc 33.8 % (30-36); Mean Corpuscular Hemoglobin 33.8 PG (26-34); Mean Corpuscular Volume 100.1 fL (80-100); Monocytes Absolute Auto 400 /uL (0-900); Monocytes Percent Auto 5.7 % (3-14); Neutrophils Absolute Auto 4200 /uL (1500-7000); Neutrophils Percent Auto 54.3 % (50-75); Platelet Count 160 X10^3/uL (150-400); Red Blood Cell Count 3.73 X10^6/uL (4.0-5.2); Red Cell Distribution Width 15.5 % (11.6-14.8); White Blood Cell Count 7.8 X10^3/uL (4.5-11.0)
[2020-07-28 16:55] LABS: Alanine Aminotransferase 36 IU/L (<35); Albumin 4.3 g/dL (3.5-5.0); Albumin Globulin Ratio 1.4 (1.0-2.8); Alkaline Phosphatase 84 U/L (38-126); Aspartate Aminotransferase 61 IU/L (14-36); Bilirubin Total 0.3 mg/dL (0.2-1.3); Bilirubin Unconjugated 0.2 mg/dL (0.0-1.1); HEMOLYSIS < 15 (0-50); Total Protein 7.3 g/dL (6.3-8.2)
[2020-07-29 05:01] LABS: Valproic Acid (Depakene) Total 99 ug/mL (50-100)
== END ==
PROVIDERS: Psychiatry & Neurology Psychiatry; Family Provider Family Medicine; PCP Family Medicine; Referring Provider Family Medicine; Visit Provider Family Medicine
DX: E11.9 Type 2 diabetes mellitus without complications (principal); F31.62 Bipolar disorder, current episode mixed, moderate; Z51.81 Encounter for therapeutic drug level monitoring
CPT/HCPCS: 36415; 80076; 80164; 83036; 85025

== ENCOUNTER 2021-01-04 18:35 | Emergency (ER) | payer MEDICARE, SELFPAY ==
[2020-05-13 23:23] VITALS: BMI 43.2
[2021-01-04 18:39] VITALS: BP 155/88; PULSE 97; RESP 22; TEMP 36.7; O2SAT 98
--- NOTE | 2021-01-04 19:40 | DI.RAD.S_ITS ---
PROCEDURE: XR HIP W PEL IF DONE RT 2V INDICATIONS: ankle pain/hip pain s/p fall several wks ago. TECHNIQUE: AP pelvis with lateral view(s) of the right hip(s). COMPARISON: None. FINDINGS: Bones: No fractures or dislocations. Moderate right worse than left bilateral hip joint osteoarthritic changes are seen. No evidence of avascular necrosis of femoral head. Pelvic ring appears intact. No suspicious bony lesions. Soft tissues: The visualized bowel gas pattern is normal. No suspicious soft tissue calcifications. IMPRESSION: Moderate right worse than left bilateral hip joint osteoarthritis. No fracture or dislocation. No evidence of avascular necrosis. Dictated by: Les Greenfield M.D. on 01/04/2021 at 20:29 Approved by: Les Greenfield M.D. on 01/04/2021 at 20:30
--- NOTE | 2021-01-04 19:40 | DI.CT.S_ITS ---
PROCEDURE: CT HEAD/BRAIN WO CON INDICATIONS: fall several weeks ago, continued rosen's, + loc from fall TECHNIQUE: Noncontrast 4.5 mm thick angled axial sections acquired from the foramen magnum to the vertex, with coronal and sagittal reformats. For radiation dose reduction, the following was used: automated exposure control, adjustment of mA and/or kV according to patient size. COMPARISON: [facility], CT, CT HEAD/BRAIN WO CON, 05/13/2020, 20:43. FINDINGS: Image quality: Excellent. CSF spaces: Basal cisterns are patent. No extra-axial fluid collections. The ventricles are symmetric in size and shape. Brain: No intracranial bleeds or masses. There is cerebral volume loss for age, with resultant ventricular and sulcal prominence. There are periventricular and deep white matter chronic small vessel ischemic changes. There is intracranial internal carotid artery atherosclerosis. Skull and face: Calvarium and visualized facial bones appear intact, without suspicious lesions. Sinuses: Visualized sinuses and mastoids are clear. IMPRESSION: No CT evidence of acute intracranial pathology. No significant changes from previous study. Dictated by: Les Greenfield M.D. on 01/04/2021 at 20:15 Approved by: Les Greenfield M.D. on 01/04/2021 at 20:16
--- NOTE | 2021-01-04 19:40 | DI.RAD.S_ITS ---
PROCEDURE: XR ANKLE RT MIN 3V INDICATIONS: ankle pain/hip pain s/p fall several wks ago. TECHNIQUE: 3 views of the ankle were acquired. COMPARISON: [facility], CR, XR ANKLE LT MIN 3V, 03/28/2019, 14:09. FINDINGS: Bones: No fractures or dislocations. Ankle mortise is normally aligned. No suspicious bony lesions. Soft tissues: Mild diffuse ankle soft tissue swelling is seen. No tibiotalar joint effusion. Achilles tendon appears normal. IMPRESSION: No acute ankle fracture or dislocation. Mild ankle soft tissue swelling. Dictated by: Les Greenfield M.D. on 01/04/2021 at 20:30 Approved by: Les Greenfield M.D. on 01/04/2021 at 20:30
--- NOTE | 2021-01-04 19:40 | ED.HA ---
HPI - Headache General Chief Complaint: Headache Stated Complaint: both legs are hurting, and femur on RT, psyche Time Seen by Provider: 01/04/21 19:22 Source: patient Mode of arrival: Ambulatory Limitations: no limitations History of Present Illness HPI Narrative: This is a 70-year-old female who states she was discharged from [facility] earlier today. She states she was there for delusions. She states there significantly better but she does not feel like she is fully controlled. She states she hears auditory hallucinations. She is not willing to share exactly what they say but she does deny that they urged her to harm herself or others. She denies any thoughts of harming herself or others. Patient states she was brought by her daughter who had picked her up and who is quite angry at her. She states her daughter wishes to control her. Patient also states she had a fall about a month ago, she states she fell into a ditch she hit the right side of her head she stated right-sided headache, patient has right hip pain as well as right ankle pain status post fall. She has been ambulating but it is painful at times she describes it is intermittent. She is not appreciate any skin sensitivity. She does not know if there is any rashes ecchymosis or other changes. Patient does take aspirin, she has a history of hypertension, dyslipidemia, diabetes and known bipolar disorder. She takes divalproex. She states she is taking 2000 mg daily and she believes she had Seroquel added. Patient is also requesting to chat with her psychiatrist Dr. Storey. Related Data Home Medications Medication Instructions Recorded Confirmed cholecalciferol (vitamin D3) 125 5,000 unit PO DAILY 09/10/18 11/23/20 mcg (5,000 unit) capsule multivitamin 1 tab PO DAILY 04/30/20 11/23/20 Previous Rx's Medication Instructions Recorded indomethacin 25 mg capsule See Rx Instructions PO TID PRN #40 06/23/19 cap atorvastatin 40 mg tablet See Rx Instructions .ROUTE 04/06/20 .COMPLEX #90 tab lisinopril 10 mg tablet See Rx Instructions .ROUTE 04/06/20 .COMPLEX #90 tab aspirin 81 mg tablet,delayed 81 mg PO DAILY #30 tab 05/14/20 release allopurinol 300 mg tablet See Rx Instructions .ROUTE 11/19/20 .COMPLEX #90 tab divalproex 500 mg tablet,extended 2,000 mg PO BEDTIME #120 tab NS 11/19/20 release 24 hr eszopiclone 2 mg tablet 2 mg PO BEDTIME PRN #30 tab 11/19/20 levothyroxine 150 mcg tablet See Rx Instructions .ROUTE 11/19/20 (Synthroid) .COMPLEX #90 tab metformin 500 mg tablet See Rx Instructions .ROUTE 11/19/20 .COMPLEX #360 tab Allergies Allergy/AdvReac Type Severity Reaction Status Date / Time quetiapine [QUETIAPINE] Allergy Severe TONGUE Verified 10/12/20 14:50 SWELLING Sulfa (Sulfonamide Allergy Mild RASH Verified 10/12/20 14:50 Antibiotics) haloperidol [HALOPERIDOL] Allergy Unknown Verified 10/12/20 14:50 lithium [LITHIUM] Allergy Unknown Verified 10/12/20 14:50 risperidone [RISPERIDONE] Allergy Unknown Verified 10/12/20 14:50 perphenazine AdvReac uncontrolled Verified 10/12/20 14:50 hand shaking Review of Systems Review of Systems ROS Unobtainable: All systems reviewed & are unremarkable except as noted in HPI and below Patient History Medical History Ankle pain (2007) Anxiety (1994) Bipolar 1 disorder, depressed, partial remission Bipolar disorder (1989) Bipolar I disorder, most recent episode depressed, severe without psychotic features Cataract (2011) Chicken pox CTS (carpal tunnel syndrome) (1987) Depression (1961) DM type 2 (diabetes mellitus, type 2) Foot pain (~2002) Fractures (2007) Hayfever (~1989) Hyperlipidemia Hypertension Hypothyroidism Measles Peripheral neuropathy (2013) RLS (restless legs syndrome) (1999) Sleep apnea (08/2015) Urinary incontinence Surgical History Anesthesia complication History of carpal tunnel repair (~1997) History of surgery (04/2008) Family History Child Age: 48 Arthritis Mother Heart disease Family history of fraternal twins Family history of identical twins Levin gestation with first Social History marital status: number of children: 2 household members: none lives independently: Yes caregiver/support person: No housing: house pets and animals: No education level: high school occupational status: unemployed leisure activities: reading and volunteer work other: walk,garden,visit friends,congregational,word puzzles seatbelt use: always water heater temp set < 120 deg: Yes working smoke detector in home: Yes fire extinguisher in home: Yes carbon monox detector in home: Yes Smoking Status: Never smoker second hand exposure: No alcohol intake: current substance use type: does not use during the past year weight has: other well-balanced diet: rarely or never daily servings fruits/ve-1 caffeine: Yes eating out: 1-3 times/week frequency: 3-4 times per week duration: 15-30 minutes/day Smoking Status: Never smoker alcohol intake frequency: holidays/special occasions only Substance Use Type: does not use Exam Narrative Exam Narrative: GEN: Patient appears in mild distress. Calm, cooperative female. Clear speech. HEAD: No evidence of trauma, no raccoon/Schroeder sign. NECK: Nontender, painless range of motion, trachea midline Negative for Nexus criteria, there is no mid line tenderness, distracting injury, altered mental status, neuro deficit, recent EtOH. EYES: PERRLA, EOMI ENT: External inspection normal, trachea is midline, TM's are normal no hemotypanum, Nares are clear, no septal hematoma, no dental or oral injury, airway is normal and with normal occlusion, No bony tenderness RESP: Chest is nontender and has symmetric movement, no ecchymosis, breath sounds are normal no crackles, wheezes or rales CVS: Heart sounds are normal, no murmur noted, No JVD. ABG/GI: Nontender, soft, normal bowel sounds, no distention, no organomegaly, pelvic rock is negative NEURO: Oriented AOx3, neuro is grossly intact, sensation and motor is normal all 4 extremities moving, cranial nerves II through XII are intact, GCS is 15 PSYCH: Normal mood and affect SKIN: Intact, warm and dry, no crepitus and without decubitus BACK: No CVA tenderness, no vertebral tenderness, no step-off's, no crepitus EXT: Patient has pain of the right hip with palpation, she also some pain of the right ankle and some mild swelling at the ankle. No warmth, erythema or ecchymosis. No pedal edema, normal color and temperature, normal range of motion of extremities with normal tendon exam, 2+ pulses in all four extremities PSYCH: No suicidal intent or homicidal intent. Patient has auditory hallucinations, she does not give any information about what they are exactly but states they do not hurt her to hurt herself or others. No agitation. With clear speech. Initial Vital Signs Initial Vital Signs: Vital Signs Temperature 98.1 F 01/04/21 18:39 Pulse Rate 97 H 01/04/21 18:39 Respiratory Rate 22 01/04/21 18:39 Blood Pressure 155/88 H 01/04/21 18:39 Pulse Oximetry 98 01/04/21 18:39 Scores GCS [place] coma scale eye opening: Spontaneous [place] coma scale verbal response: Orientated [place] coma scale motor response: Obey commands [place] coma scale total score: 15 Course Orders Ordered: ED Orders 01/04/21 18:46 Consult to STOCK TAKER - [employer]ger Stat 01/04/21 19:40 CT head/brain wo con Stat XR ankle RT min 3V Stat XR hip w pel if done RT 2V Stat 01/04/21 19:52 Free T4, Direct Thyroxine Stat 01/04/21 19:58 Basic Metabolic Panel Stat Complete Blood Count AUTO DIFF Stat Thyroid Stimulating Hormone Stat 01/04/21 20:47 Urine Drug Screen, Rapid Stat 01/04/21 20:59 COVID19 -Nasal swab/Pre-Proc Stat Vital Signs Vital signs: Vital Signs - 8 hr 01/04/21 18:39 Temperature 98.1 F Pulse Rate 97 H Respiratory Rate 22 Blood Pressure 155/88 H Pulse Oximetry 98 MDM - Headache Lab Data Result diagrams: 01/04/21 19:58 01/04/21 19:58 Labs: Lab Results 01/04/21 01/04/21 01/04/21 Range/Units 19:52 19:58 19:58 WBC 8.3 (4.5-11.0) X10^3/uL RBC 3.76 L (4.0-5.2) X10^6/uL Hgb 12.4 (12.0-16.0) g/dL Hct 38.2 (36-46) % MCV 101.6 H (80-100) fL MCH 33.0 (26-34) PG MCHC 32.5 (30-36) % RDW 15.2 H (11.6-14.8) % Plt Count 188 (150-400) X10^3/uL Neut % (Auto) 45.6 L (50-75) % Lymph % (Auto) 44.9 H (25-40) % [place] % (Auto) 6.3 (3-14) % Eos % (Auto) 2.1 (2-4) % Baso % (Auto) 1.1 (0-2) % Neut # (Auto) 3800 (5977-0825) /uL Lymph # (Auto) 3700 (1360-9930) /uL [place] # (Auto) 500 (0-900) /uL Eos # (Auto) 200 (0-450) /uL Baso # (Auto) 100 (0-100) /uL Sodium 140 (137-145) mmol/L Potassium 4.8 (3.4-5.1) mmol/L Chloride 102 (98-107) mmol/L Carbon Dioxide 30 (22-32) mmol/L BUN 34 H (7-17) mg/dL Creatinine 1.29 H (0.52-1.04) mg/dL Estimated GFR 41.1 L (>60) mL/min BUN/Creatinine Ratio 26.4 H (6-22) Glucose 120 H (80-110) mg/dL Calcium 10.2 (8.4-10.2) mg/dL TSH (0.47-4.68) uIU/mL Free T4 1.16 (0.78-2.19) ng/dL U Opiates 300ng/mL cut (Negative) Ur Oxycodone Screen (Negative) Urine Methadone Screen (Negative) Ur Barbiturates Screen (Negative) U Tricyclic Antidepress (Negative) Ur Phencyclidine Scrn (Negative) Ur Amphetamines Screen (Negative) U Methamphetamines Scrn (Negative) Ur MDMA Scrn (Ecstasy) (Negative) U Benzodiazepines Scrn (Negative) Urine Cocaine Screen (Negative) U Marijuana (THC) Screen (Negative) SARS-CoV-2 (PCR) (Negative) 01/04/21 01/04/21 01/04/21 Range/Units 19:58 20:47 20:59 WBC (4.5-11.0) X10^3/uL RBC (4.0-5.2) X10^6/uL Hgb (12.0-16.0) g/dL Hct (36-46) % MCV (80-100) fL MCH (26-34) PG MCHC (30-36) % RDW (11.6-14.8) % Plt Count (150-400) X10^3/uL Neut % (Auto) (50-75) % Lymph % (Auto) (25-40) % [place] % (Auto) (3-14) % Eos % (Auto) (2-4) % Baso % (Auto) (0-2) % Neut # (Auto) (9823-8367) /uL Lymph # (Auto) (2581-5394) /uL [place] # (Auto) (0-900) /uL Eos # (Auto) (0-450) /uL Baso # (Auto) (0-100) /uL Sodium (137-145) mmol/L Potassium (3.4-5.1) mmol/L Chloride (98-107) mmol/L Carbon Dioxide (22-32) mmol/L BUN (7-17) mg/dL Creatinine (0.52-1.04) mg/dL Estimated GFR (>60) mL/min BUN/Creatinine Ratio (6-22) Glucose (80-110) mg/dL Calcium (8.4-10.2) mg/dL TSH 20.2 H (0.47-4.68) uIU/mL Free T4 (0.78-2.19) ng/dL U Opiates 300ng/mL cut Negative (Negative) Ur Oxycodone Screen Negative (Negative) Urine Methadone Screen Negative (Negative) Ur Barbiturates Screen Negative (Negative) U Tricyclic Antidepress Negative (Negative) Ur Phencyclidine Scrn Negative (Negative) Ur Amphetamines Screen Negative (Negative) U Methamphetamines Scrn Negative (Negative) Ur MDMA Scrn (Ecstasy) Negative (Negative) U Benzodiazepines Scrn Negative (Negative) Urine Cocaine Screen Negative (Negative) U Marijuana (THC) Screen Negative (Negative) SARS-CoV-2 (PCR) Negative (Negative) Urine Dip Bedside Urine Glucose Negative Bedside Urine Bilirubin - Negative Bedside Urine Ketone - Negative Urine Specific [place] 1.015 Bedside Urine Occult Blood - Negative Bedside Urine pH 6.0 Bedside Urine Protein - Negative Bedside Urine Urobilinogen - Negative Bedside Urine Nitrite - Negative Bedside Urine Leukocytes - Negative Esterase Imaging Data Extremity x-ray #1: Radiologist's Impression: Launch?[address] [address] XRay Report Signed Patient: Madhav Coats V MR#: [id number] : 1950 Acct:[id number] Age/Sex: 70 / F Date of Service: 01/04/21 Loc: ED Accession Number: [id number] ?? Procedure: XR hip w pel if done RT 2V Ordering Provider: Rosa Isela Floyd D.O. PROCEDURE:? XR HIP W PEL IF DONE RT 2V ? INDICATIONS:? ankle pain/hip pain s/p fall? several wks ago. ? TECHNIQUE:? AP pelvis with lateral view(s) of the right hip(s).? ? COMPARISON:? None. ? FINDINGS:? ? Bones:? No fractures or dislocations.? Moderate right worse than left bilateral hip joint osteoarthritic changes are seen.? No evidence of avascular necrosis of femoral head.? Pelvic ring appears intact.? No suspicious bony lesions.? ? Soft tissues:? The visualized bowel gas pattern is normal.? No suspicious soft tissue calcifications.? ? ? IMPRESSION:? Moderate right worse than left bilateral hip joint osteoarthritis.? No fracture or dislocation.? No evidence of avascular necrosis. ? ? ? Dictated by: Les Greenfield M.D. on 01/04/2021 at 20:29 ? ? Approved by: Les Greenfield M.D. on 01/04/2021 at 20:30?? CT scan - head: Radiologist's Impression: Launch?[address] [address] [address] Scan Report Signed Patient: Madhav Coats V MR#: [id number] : 1950 Acct:[id number] Age/Sex: 70 / F Date of Service: 01/04/21 Loc: ED Accession Number: [id number] ?? Procedure: CT head/brain wo con Ordering Provider: Rosa Isela Floyd D.O. PROCEDURE:? CT HEAD/BRAIN WO CON ? INDICATIONS:? fall several weeks ago, continued rosen's, + loc from fall ? TECHNIQUE:? Noncontrast 4.5 mm thick angled axial sections acquired from the foramen magnum to the vertex, with coronal and sagittal reformats.? For radiation dose reduction, the following was used:? automated exposure control, adjustment of mA and/or kV according to patient size.? ? COMPARISON:? [facility], CT, CT HEAD/BRAIN WO CON, 05/13/2020, 20:43. ? FINDINGS:? Image quality:? Excellent.? ? CSF spaces:? Basal cisterns are patent.? No extra-axial fluid collections.? The ventricles are symmetric in size and shape.? ? Brain:? No intracranial bleeds or masses.? There is cerebral volume loss for age, with resultant ventricular and sulcal prominence.? There are periventricular and deep white matter chronic small vessel ischemic changes.? There is intracranial internal carotid artery atherosclerosis.? ? Skull and face:? Calvarium and visualized facial bones appear intact, without suspicious lesions.? ? Sinuses:? Visualized sinuses and mastoids are clear.? ? IMPRESSION:? No CT evidence of acute intracranial pathology.? No significant changes from previous study. ? ? Dictated by: Les Greenfield M.D. on 01/04/2021 at 20:15 ? ? Approved by: Les Greenfield M.D. on 01/04/2021 at 20:16?? Extremity x-ray #2: Radiologist's Impression: [place] [address] XRay Report Signed Patient: Madhav Coats V MR#: [id number] : 1950 Acct:[id number] Age/Sex: 70 / F Date of Service: 01/04/21 Loc: ED Accession Number: [id number] ?? Procedure: XR ankle RT min 3V Ordering Provider: Rosa Isela Floyd D.O. PROCEDURE:? XR ANKLE RT MIN 3V ? INDICATIONS:? ankle pain/hip pain s/p fall? several wks ago. ? TECHNIQUE:? 3 views of the ankle were acquired.? ? COMPARISON:? [facility], CR, XR ANKLE LT MIN 3V, 03/28/2019, 14:09. ? FINDINGS:? ? Bones:? No fractures or dislocations.? Ankle mortise is normally aligned.? No suspicious bony lesions.? ? Soft tissues:? Mild diffuse ankle soft tissue swelling is seen.? No tibiotalar joint effusion.? Achilles tendon appears normal.? ? ? IMPRESSION:? No acute ankle fracture or dislocation.? Mild ankle soft tissue swelling. ? ? ? Dictated by: Les Greenfield M.D. on 01/04/2021 at 20:30 ? ? Approved by: Les Greenfield M.D. on 01/04/2021 at 20:30?? MDM Narrative Medical decision making narrative: Attempted to get records. Patient was admitted at psych facility for 20 days. We were able to obtain records and she presented as Georgette Fonseca at [facility]. Patient is calm, cooperative appropriate with appropriate mentation here in the department and does not appear to be gravely disabled having any thoughts of harming herself or others. At this time I feel she is voluntary and can choose to leave if she wishes to. She is requesting to speak with her psychiatrist Dr. Storey who is available to come in tomorrow morning. Initially patient felt comfortable waiting here until the morning to be seen have a discussion. Dr. Storey states she would be happy to talk to her but patient also has an appointment at 4:30 p.m. on 01/05/21 as well. STOCK TAKER also saw patient. Patient is otherwise medically cleared head CT acute changes. Patient TSH was quite elevated but T4 is appropriate. Discharge Plan Departure Patient Disposition: Left Against Medical Advice Clinical Impression: Patient left care setting after refusal of treatment Prescriptions: No Action cholecalciferol (vitamin D3) 5,000 unit capsule 5,000 unit PO DAILY RF: 0 multivitamin Tablet 1 tab PO DAILY RF: 0 indomethacin 25 mg capsule See Rx Instructions PO TID PRN (Reason: gout) Qty: 40 RF: 0 atorvastatin 40 mg tablet See Rx Instructions .ROUTE .COMPLEX Qty: 90 RF: 2 lisinopril 10 mg tablet See Rx Instructions .ROUTE .COMPLEX Qty: 90 RF: 2 levothyroxine [Synthroid] 150 mcg tablet See Rx Instructions .ROUTE .COMPLEX Qty: 90 RF: 0 allopurinol 300 mg tablet See Rx Instructions .ROUTE .COMPLEX Qty: 90 RF: 0 metformin 500 mg tablet See Rx Instructions .ROUTE .COMPLEX Qty: 360 RF: 1 divalproex 500 mg tablet extended release 24 hr 2,000 mg PO BEDTIME Qty: 120 RF: 2 eszopiclone 2 mg tablet 2 mg PO BEDTIME PRN (Reason: insomnia) Qty: 30 RF: 1 aspirin 81 mg Tablet,Delayed Release (Dr/Ec) 81 mg PO DAILY Qty: 30 RF: 12 Referrals: Alina Corcoran MD [Primary Care Provider] - Stand Alone Forms: Against Medical Advice
--- NOTE | 2021-01-04 20:01 | CM.SWNOTE ---
Addendum entered by Aziza Seugndo 01/04/21 20:25: CENTRIFUGAL MACHINE TENDER Note Patient presents with thought blocking thought process and appears to respond to outside stimuli looking at ceiling. CENTRIFUGAL MACHINE TENDER returns to meet with patient. Patient states she would prefer to stay at hospital CENTRIFUGAL MACHINE TENDER receives records that patient was [facility] inpatient at [facility] from 12/15/20 through 01/04/21. Pateint denies delusions, denies HI and endorses auditory hallucinations prefer to keep to self when asked about it. Patient endorses visual hallucinations monster creatures that I have seen before. CENTRIFUGAL MACHINE TENDER calls Dr. Storey and leaves regarding patient present at ED. It is the opinion of this CENTRIFUGAL MACHINE TENDER that patient is safe to d/c to community. CENTRIFUGAL MACHINE TENDER reviews the above with ED provider Dr. Floyd who indicates agreement and understanding. Patient indicates that she wants to f/u with appt with Dr. Storey tomorrow via video. Plan: ED provider to continue to medically assess patient and f/u with POC. RAFA Byrd Original Note: CENTRIFUGAL MACHINE TENDER Note CENTRIFUGAL MACHINE TENDER receives consult and enters room. Patient endorses she was at [facility] for 14 days and was d/c'd today. CENTRIFUGAL MACHINE TENDER requests that [facility] requests records. [facility] endorses that [facility] does not identify anyone by patient's name, [facility] to seek further for records. Patient is 70 y/o female who presents to the ED with concern for problems with ankle, leg, femur, headache and patient reports she fell and hit her head and cracked it patient also endorses dizziness. Patient presents with flat affect, A/Ox4. Patient sees Psychiatrist Dr. Storey and has video appt tomorrow on 01/05/21. Patient reports concern that maybe she got out of [facility] too soon and she is having delusions. Patient endorses she made friends at [facility], talked a lot and cleaned. Patient states she felt ready to leave when she did and her daughter picked her up. Patient endorses she was at [facility] under the name Georgette Fonseca and they misspelled her last name. Patient endorses she lives alone at the [facility]. Patient endorses that her daughter took her keys away today and she is not on good terms with her. patient endorses that she called security to get her daughter out of her building and came to this ED voluntarily. Patient endorses she can retrieve her keys by contacting housing authority. Patient denies self harm and SI. Patient is taken to DI for further imaging. CENTRIFUGAL MACHINE TENDER to f/u with patient. RAFA Byrd
[2021-01-04 20:04] LABS: Add Manual Diff / Slide Review NO; Basophils Absolute Auto 100 /uL (0-100); Basophils Percent Auto 1.1 % (0-2); Eosinophils Absolute Auto 200 /uL (0-450); Eosinophils Percent Auto 2.1 % (2-4); Hematocrit 38.2 % (36-46); Hemoglobin 12.4 g/dL (12.0-16.0); Lymphocytes Absolute Auto 3700 /uL (1100-4500); Lymphocytes Percent Auto 44.9 % (25-40); Mean Corpuscular HGB Conc 32.5 % (30-36); Mean Corpuscular Volume 101.6 fL (80-100); Monocytes Absolute Auto 500 /uL (0-900); Monocytes Percent Auto 6.3 % (3-14); Neutrophils Absolute Auto 3800 /uL (1500-7000); Neutrophils Percent Auto 45.6 % (50-75); Platelet Count 188 X10^3/uL (150-400); Red Blood Cell Count 3.76 X10^6/uL (4.0-5.2); Red Cell Distribution Width 15.2 % (11.6-14.8); White Blood Cell Count 8.3 X10^3/uL (4.5-11.0)
[2021-01-04 20:15] LABS: BUN Creatinine Ratio 26.4 (6-22); Blood Urea Nitrogen 34 mg/dL (7-17); Calcium 10.2 mg/dL (8.4-10.2); Carbon Dioxide 30 mmol/L (22-32); Chloride 102 mmol/L (98-107); Estimated Glomerular Filt Rate 41.1 mL/min (>60); Glucose 120 mg/dL (80-110); HEMOLYSIS < 15 (0-50); Potassium 4.8 mmol/L (3.4-5.1); Sodium 140 mmol/L (137-145)
[2021-01-04 20:52] LABS: Thyroid Stimulating Hormone 20.2 uIU/mL (0.47-4.68)
[2021-01-04 21:04] LABS: UR Morphine/Opiate cutoff 300 Negative (Negative); Ur Creatinine 10 (Normal); Ur Specific Gravity 1.025 (Normal); Urine Amphetamines Negative (Negative); Urine Cocaine Negative (Negative); Urine Tetrahydrocannabinol Negative (Negative); Urine pH 5 (Normal)
[2021-01-04 21:05] LABS: Urine Barbiturates Negative (Negative); Urine Benzodiazepines Negative (Negative); Urine MDMA Negative (Negative); Urine Methadone Negative (Negative); Urine Methamphetamines Negative (Negative); Urine Oxycodone Negative (Negative); Urine Phencyclidine Negative (Negative); Urine Tricyclic Antidepressant Negative (Negative)
[2021-01-04 21:17] LABS: COVID19 -Nasal RAPID Negative (Negative)
[2021-01-04 22:18] LABS: Free T4, Direct Thyroxine 1.16 ng/dL (0.78-2.19)
== END 2021-01-04 22:20 | disposition left against medical advice (07) ==
PROVIDERS: Emergency Provider Emergency Medicine; Family Provider Family Medicine; PCP Family Medicine
DX: R44.0 Auditory hallucinations (principal); M25.571 Pain in right ankle and joints of right foot; M25.551 Pain in right hip; W19.XXXA Unspecified fall, initial encounter; Z20.822 Contact with and (suspected) exposure to COVID-19
CPT/HCPCS: 36415; 70450; 73502; 73610; 80048; 80305; 81003; 84439; 84443; 85025; 87635; 99284; C9803

== ENCOUNTER → 2021-01-17 14:24 | Outpatient (CLI) | payer MEDICARE, SELFPAY ==
[2020-05-13 23:23] VITALS: BMI 43.2
[2021-01-17 15:10] LABS: Add Manual Diff / Slide Review NO; Basophils Absolute Auto 0 /uL (0-100); Basophils Percent Auto 0.4 % (0-2); Eosinophils Absolute Auto 200 /uL (0-450); Eosinophils Percent Auto 2.2 % (2-4); Hematocrit 38.2 % (36-46); Hemoglobin 12.8 g/dL (12.0-16.0); Lymphocytes Absolute Auto 3700 /uL (1100-4500); Lymphocytes Percent Auto 41.5 % (25-40); Mean Corpuscular HGB Conc 33.5 % (30-36); Mean Corpuscular Volume 101.4 fL (80-100); Monocytes Absolute Auto 300 /uL (0-900); Monocytes Percent Auto 3.8 % (3-14); Neutrophils Absolute Auto 4600 /uL (1500-7000); Neutrophils Percent Auto 52.1 % (50-75); Platelet Count 279 X10^3/uL (150-400); Red Blood Cell Count 3.77 X10^6/uL (4.0-5.2); Red Cell Distribution Width 15.1 % (11.6-14.8); White Blood Cell Count 8.9 X10^3/uL (4.5-11.0)
[2021-01-17 15:20] LABS: Alanine Aminotransferase 20 IU/L (<35); Albumin 4.5 g/dL (3.5-5.0); Albumin Globulin Ratio 1.7 (1.0-2.8); Alkaline Phosphatase 73 U/L (38-126); Aspartate Aminotransferase 28 IU/L (14-36); BUN Creatinine Ratio 14.7 (6-22); Bilirubin Total 0.3 mg/dL (0.2-1.3); Blood Urea Nitrogen 15 mg/dL (7-17); Calcium 10.6 mg/dL (8.4-10.2); Carbon Dioxide 30 mmol/L (22-32); Chloride 102 mmol/L (98-107); Estimated Glomerular Filt Rate 53.9 mL/min (>60); Globulin 2.7 g/dL (1.7-4.1); Glucose 115 mg/dL (80-110); HEMOLYSIS < 15 (0-50); Potassium 4.5 mmol/L (3.4-5.1); Sodium 142 mmol/L (137-145); Total Protein 7.2 g/dL (6.3-8.2)
[2021-01-17 15:37] LABS: Free T4, Direct Thyroxine 0.37 ng/dL (0.78-2.19)
[2021-01-18 06:54] LABS: Valproic Acid (Depakene) Total 99 ug/mL (50-100)
== END ==
PROVIDERS: Family Provider Family Medicine; PCP Family Medicine; Referring Provider Psychiatry & Neurology Psychiatry; Visit Provider Psychiatry & Neurology Psychiatry
DX: E11.65 Type 2 diabetes mellitus with hyperglycemia (principal); F31.2 Bipolar disorder, current episode manic severe with psychotic features; Z51.81 Encounter for therapeutic drug level monitoring
CPT/HCPCS: 36415; 80053; 80164; 83036; 84439; 84443; 85025

== ENCOUNTER 2021-02-06 22:49 | Emergency (ER) | payer MEDICARE, SELFPAY ==
[2020-05-13 23:23] VITALS: BMI 43.2
[2021-02-06 22:52] VITALS: TEMP 36.4
--- NOTE | 2021-02-06 22:54 | DI.RAD.S_ITS ---
PROCEDURE: XR CHEST 2V INDICATIONS: soa, resolved TECHNIQUE: 2 views of the chest were acquired. COMPARISON: [facility], , CHEST 1 VIEW, 07/05/2009, 16:09. FINDINGS: Surgical changes and devices: None. Lungs and pleura: Lungs are clear. No pleural effusions or pneumothorax. Elevation of the right hemidiaphragm is unchanged compared to the prior x-ray. A 2.5 x 1.9 centimeter oval density lateral to the left hilum is noted. Mediastinum: Mediastinal contours are normal. Heart size is normal. Bones and chest wall: No suspicious bony abnormalities. Soft tissues appear unremarkable. IMPRESSION: 1. No acute cardiopulmonary. 2. 2.5 x 1.9 centimeter oval density lateral to the left. This could be due to superimposition of densities or a mass. Recommend follow-up x-ray to ensure resolution or CT. Dictated by: Trevor Garcia M.D. on 02/06/2021 at 23:26 Approved by: Trevor Garcia M.D. on 02/06/2021 at 23:29
[2021-02-06 22:55] VITALS: BP 120/62; PULSE 111; TEMP 36.6; O2SAT 94
--- NOTE | 2021-02-07 00:49 | ED.ANXIETY ---
HPI - Anxiety General Chief Complaint: Anxiety Stated Complaint: SOB Lying down Time Seen by Provider: 02/07/21 00:11 Source: patient and EMS Mode of arrival: EMS History of Present Illness HPI narrative: 70-year-old woman with a history of bipolar type 1 with psychosis recent hospitalization in [place], type 2 diabetes, hypothyroidism, recent acute kidney injury with creatinine as high as 2.7. Tonight she took an extra dose of Seroquel because she was still hearing and occasional voice and wanted them to completely calm. After recently seeing her psychiatrist her current dose of Seroquel as 200 mg at night, today she took 400. She takes 17 150 mg extended-release Depakote (3 500 mg tabs and 1 250mg tab). She is very clear that this was not a suicide attempt, simply an attempt to calm the voices so she could sleep better. She found herself waking up feeling that she was gasping for breath and called 911. She describes no recent fever, cough, chills, abdominal pain, headaches, nausea vomiting, diarrhea. She is still hearing occasional voices but significantly improved at the ?tail end of her psychotic episode? as she self describes. Certainly not hearing command hallucinations and no visual hallucinations. Related Data Home Medications Medication Instructions Recorded Confirmed multivitamin 1 tab PO DAILY 04/30/20 01/28/21 Previous Rx's Medication Instructions Recorded indomethacin 25 mg capsule See Rx Instructions PO TID PRN #40 06/23/19 cap aspirin 81 mg tablet,delayed 81 mg PO DAILY #30 tab 05/14/20 release allopurinol 300 mg tablet See Rx Instructions .ROUTE 11/19/20 .COMPLEX #90 tab metformin 500 mg tablet See Rx Instructions .ROUTE 11/19/20 .COMPLEX #360 tab divalproex 500 mg tablet,extended 1,500 mg PO BEDTIME #90 tab 01/17/21 release 24 hr eszopiclone 2 mg tablet 2 mg PO BEDTIME PRN #30 tab 01/17/21 levothyroxine 150 mcg tablet See Rx Instructions .ROUTE 01/25/21 .COMPLEX #90 tab quetiapine 100 mg tablet 200 mg PO BEDTIME #60 tab 01/26/21 atorvastatin 40 mg tablet See Rx Instructions .ROUTE 02/03/21 .COMPLEX #90 tab lisinopril 10 mg tablet See Rx Instructions .ROUTE 02/03/21 .COMPLEX #90 tab Allergies Allergy/AdvReac Type Severity Reaction Status Date / Time Sulfa (Sulfonamide Allergy Mild RASH Verified 01/28/21 09:22 Antibiotics) haloperidol [HALOPERIDOL] Allergy Unknown Verified 01/28/21 09:22 lithium [LITHIUM] Allergy Unknown Verified 01/28/21 09:22 risperidone [RISPERIDONE] Allergy Unknown Verified 01/28/21 09:22 perphenazine AdvReac uncontrolled Verified 01/28/21 09:22 hand shaking Review of Systems Review of Systems Narrative: Remainder of complete review of systems is otherwise unremarkable except for that included in the HPI. Patient History Medical History Ankle pain (2007) Anxiety (1994) Bipolar 1 disorder, depressed, partial remission Bipolar 1 disorder, mixed, full remission Bipolar disorder (1989) Bipolar I disorder, most recent episode depressed, severe without psychotic features Cataract (2011) Chicken pox CTS (carpal tunnel syndrome) (1987) Depression (1961) DM type 2 (diabetes mellitus, type 2) Foot pain (~2002) Fractures (2007) Hayfever (~1989) Hyperlipidemia Hypertension Hypothyroidism Measles Peripheral neuropathy (2013) RLS (restless legs syndrome) (1999) Sleep apnea (08/2015) Urinary incontinence Surgical History Anesthesia complication History of carpal tunnel repair (~1997) History of surgery (04/2008) Family History Child Age: 49 Arthritis Mother Heart disease Family history of fraternal twins Family history of identical twins Levin gestation with first Social History marital status: number of children: 2 household members: none lives independently: Yes caregiver/support person: No housing: house pets and animals: No education level: high school occupational status: unemployed leisure activities: reading and volunteer work other: walk,garden,visit friends,jehovah's witness,word puzzles seatbelt use: always water heater temp set < 120 deg: Yes working smoke detector in home: Yes fire extinguisher in home: Yes carbon monox detector in home: Yes Smoking Status: Never smoker second hand exposure: No alcohol intake: current substance use type: does not use during the past year weight has: other well-balanced diet: rarely or never daily servings fruits/ve-1 caffeine: Yes eating out: 1-3 times/week frequency: 3-4 times per week duration: 15-30 minutes/day Smoking Status: Never smoker alcohol intake frequency: holidays/special occasions only Substance Use Type: does not use Exam Narrative Exam Narrative: General: Healthy appearing, in no acute distress. Able to give a complete and coherent history. Well-nourished well-developed HEENT: Moist mucous membranes, normal sclera with reactive pupils, Respiratory: Lungs are clear to auscultation, no wheezing no rales no rhonchi. Full and symmetrical air movement Cardiac: Regular rate and rhythm no murmurs no bruits Abdomen: Soft, nontender, good bowel tones, no flank pain Skin: Warm and dry, no rashes Neurologic: Grossly neurologically intact with no obvious asymmetries or abnormalities Extremities: No trauma, well perfused Psych: Cooperative, appropriate insight and affect, nonpressured and appropriately fluent speech with no response to internal stimuli appreciated Initial Vital Signs Initial Vital Signs: Vital Signs Temperature 97.5 F L 02/06/21 22:52 Course Orders Ordered: ED Orders 02/06/21 22:54 XR chest 2V Stat 02/06/21 22:58 EKG-12 Lead Stat Vital Signs Vital signs: Vital Signs - 8 hr 02/06/21 22:52 02/06/21 22:55 Temperature 97.5 F L 97.9 F Pulse Rate 111 H Blood Pressure 120/62 Pulse Oximetry 94 MDM - Anxiety Imaging Data Chest x-ray: Radiologist's Impression: FINDINGS:? ? Surgical changes and devices:? None.? ? Lungs and pleura:? Lungs are clear.? No pleural effusions or pneumothorax.? Elevation of the right hemidiaphragm is unchanged compared to the prior x-ray.? A 2.5 x 1.9 centimeter oval density lateral to the left hilum is noted. ? Mediastinum:? Mediastinal contours are normal.? Heart size is normal.? ? Bones and chest wall:? No suspicious bony abnormalities.? Soft tissues appear unremarkable.? ? IMPRESSION:? 1. No acute cardiopulmonary. 2. 2.5 x 1.9 centimeter oval density lateral to the left.? This could be due to superimposition of densities or a mass.? Recommend follow-up x-ray to ensure resolution or CT. ? ? Dictated by: Trevor Garcia M.D. on 02/06/2021 at 23:26 ? ? ECG Data Interpretation: Sinus rhythm at 1:03 a.m. Normal axis, normal intervals No acute ischemic changes MDM Narrative Medical decision making narrative: 70-year-old woman with bipolar type 1 recently hospitalized for psychotic episode currently supposed to be taking 200 mg of Seroquel and 1750 mg of Depakote. She was concerned that voices were not completely clear and she took an extra dose of 200 mg of Seroquel this evening. Call 911 when she was concerned that she might be having some respiratory depression. On exam in in the emergency room she is sleeping lightly with no snoring and no signs of respiratory depression or significant tachycardia. Exam is entirely benign. Reassurance is given. She does not have a way to get home for at least 5 hours so will monitor her oxygenation and lower to sleep in the ER where she feels more comfortable for the time being. Again I am not seeing any evidence for an acute psychotic exacerbation and do not believe that this was a suicide attempt Discharge Plan Departure Patient Disposition: Home Clinical Impression: Bipolar 1 disorder, Abnormal chest x-ray Accidental overdose Qualifiers: Encounter type: initial encounter Qualified Code(s): T50.901A - Poisoning by unspecified drugs, medicaments and biological substances, accidental (unintentional), initial encounter Instructions: DI for Bipolar Disorder Activity Restrictions/Additional Instructions: Thank you for coming in tonight Taking the extra 200 mg of Seroquel did not cause severe medical side effects. You were observed in the emergency department with oxygen levels being measured overnight. I would not recommend continuing with 400 mg of Seroquel. If you still feel like the voices are not completely quiet, please contact Dr. Storey's office to talk about medically supervised medication changes and additions. In the meantime, please continue with your usual prescribed medications including that 200 mg of Seroquel this evening. There was an incidental finding with your chest x-ray. There is an area on the left side that the radiologist recommended repeating a chest x-ray in the near future to see if it is resolved. He was unsure if it was overlying shadows or an area that needed to be assessed further. Prescriptions: No Action divalproex 500 mg tablet extended release 24 hr 1,500 mg PO BEDTIME Qty: 90 RF: 1 multivitamin Tablet 1 tab PO DAILY RF: 0 indomethacin 25 mg capsule See Rx Instructions PO TID PRN (Reason: gout) Qty: 40 RF: 0 allopurinol 300 mg tablet See Rx Instructions .ROUTE .COMPLEX Qty: 90 RF: 0 metformin 500 mg tablet See Rx Instructions .ROUTE .COMPLEX Qty: 360 RF: 1 eszopiclone 2 mg tablet 2 mg PO BEDTIME PRN (Reason: insomnia) Qty: 30 RF: 1 levothyroxine 150 mcg tablet See Rx Instructions .ROUTE .COMPLEX Qty: 90 RF: 1 quetiapine 100 mg tablet 200 mg PO BEDTIME Qty: 60 RF: 0 lisinopril 10 mg tablet See Rx Instructions .ROUTE .COMPLEX Qty: 90 RF: 2 atorvastatin 40 mg tablet See Rx Instructions .ROUTE .COMPLEX Qty: 90 RF: 2 aspirin 81 mg Tablet,Delayed Release (Dr/Ec) 81 mg PO DAILY Qty: 30 RF: 12 Referrals: Alina Corcoran MD [Primary Care Provider] -
[2021-02-07 06:07] VITALS: BP 121/58; PULSE 78; O2SAT 96
== END 2021-02-07 06:12 | disposition home or self-care (01) ==
PROVIDERS: Emergency Provider Emergency Medicine; Family Provider Family Medicine; PCP Family Medicine
DX: T43.591A Poisoning by other antipsychotics and neuroleptics, accidental (unintentional), initial encounter (principal); F31.9 Bipolar disorder, unspecified; R06.02 Shortness of breath
CPT/HCPCS: 71046; 93005; 99283; 99284

== ENCOUNTER → 2021-03-01 15:41 | Outpatient (CLI) | payer MEDICARE, SELFPAY ==
[2020-05-13 23:23] VITALS: BMI 43.2
[2021-03-01 16:31] LABS: Add Manual Diff / Slide Review NO; Basophils Absolute Auto 0 /uL (0-100); Basophils Percent Auto 0.4 % (0-2); Eosinophils Absolute Auto 300 /uL (0-450); Eosinophils Percent Auto 4.5 % (2-4); Hematocrit 33.7 % (36-46); Hemoglobin 11.3 g/dL (12.0-16.0); Lymphocytes Absolute Auto 2600 /uL (1100-4500); Lymphocytes Percent Auto 35.7 % (25-40); Mean Corpuscular HGB Conc 33.6 % (30-36); Mean Corpuscular Hemoglobin 33.4 PG (26-34); Mean Corpuscular Volume 99.3 fL (80-100); Monocytes Absolute Auto 600 /uL (0-900); Monocytes Percent Auto 7.5 % (3-14); Neutrophils Absolute Auto 3900 /uL (1500-7000); Neutrophils Percent Auto 51.9 % (50-75); Platelet Count 150 X10^3/uL (150-400); Red Blood Cell Count 3.39 X10^6/uL (4.0-5.2); Red Cell Distribution Width 15.7 % (11.6-14.8); White Blood Cell Count 7.4 X10^3/uL (4.5-11.0)
[2021-03-01 17:24] LABS: HEMOLYSIS < 15 (0-50); Iron 96 ug/dL (37-170)
[2021-03-01 17:35] LABS: Percent Iron Saturation 24 % (15-50); Total Iron Binding Capacity 407 ug/dL (265-497); Transferrin 328 mg/dL (206-381)
[2021-03-01 17:45] LABS: Free T3, Triiodothyronine Free 3.51 pg/mL (2.77-5.27); Free T4, Direct Thyroxine 1.13 ng/dL (0.78-2.19)
[2021-03-01 17:59] LABS: Thyroid Stimulating Hormone 1.46 uIU/mL (0.47-4.68)
[2021-03-02 08:10] LABS: Valproic Acid (Depakene) Total 102 ug/mL (50-100)
== END ==
PROVIDERS: Psychiatry & Neurology Psychiatry; Family Provider Family Medicine; PCP Family Medicine; Referring Provider Family Medicine; Visit Provider Family Medicine
DX: E03.9 Hypothyroidism, unspecified (principal); D64.9 Anemia, unspecified; Z51.81 Encounter for therapeutic drug level monitoring
CPT/HCPCS: 36415; 80164; 83540; 83550; 84439; 84443; 84481; 85025

== ENCOUNTER 2021-03-12 21:35 | Emergency (ER) | payer MEDICARE, SELFPAY ==
[2020-05-13 23:23] VITALS: BMI 43.2
[2021-03-12 21:39] VITALS: BP 104/57; PULSE 96; RESP 18; TEMP 36.1; O2SAT 93; BMI 37.2
[2021-03-12 22:21] LABS: Add Manual Diff / Slide Review NO; Basophils Absolute Auto 0 /uL (0-100); Basophils Percent Auto 0.4 % (0-2); Eosinophils Absolute Auto 200 /uL (0-450); Eosinophils Percent Auto 2.8 % (2-4); Hematocrit 31.2 % (36-46); Hemoglobin 10.6 g/dL (12.0-16.0); Lymphocytes Absolute Auto 3000 /uL (1100-4500); Lymphocytes Percent Auto 43.5 % (25-40); Mean Corpuscular HGB Conc 33.9 % (30-36); Mean Corpuscular Hemoglobin 33.8 PG (26-34); Mean Corpuscular Volume 99.7 fL (80-100); Monocytes Absolute Auto 700 /uL (0-900); Monocytes Percent Auto 9.8 % (3-14); Neutrophils Absolute Auto 3000 /uL (1500-7000); Neutrophils Percent Auto 43.5 % (50-75); Platelet Count 175 X10^3/uL (150-400); Red Blood Cell Count 3.13 X10^6/uL (4.0-5.2); Red Cell Distribution Width 15.2 % (11.6-14.8)
[2021-03-12 22:31] LABS: Alanine Aminotransferase 15 IU/L (<35); Albumin Globulin Ratio 1.5 (1.0-2.8); Alkaline Phosphatase 59 U/L (38-126); Aspartate Aminotransferase 27 IU/L (14-36); BUN Creatinine Ratio 29.1 (6-22); Bilirubin Total 0.2 mg/dL (0.2-1.3); Blood Urea Nitrogen 39 mg/dL (7-17); Calcium 9.6 mg/dL (8.4-10.2); Carbon Dioxide 24 mmol/L (22-32); Chloride 103 mmol/L (98-107); Estimated Glomerular Filt Rate 39.3 mL/min (>60); Ethanol (ETOH) < 10 mg/dL; Globulin 2.7 g/dL (1.7-4.1); Glucose 123 mg/dL (80-110); HEMOLYSIS < 15 (0-50); Sodium 138 mmol/L (137-145); Total Protein 6.7 g/dL (6.3-8.2)
[2021-03-12 22:38] LABS: UR Morphine/Opiate cutoff 300 Positive (Negative); Ur Creatinine 50 (Normal); Ur Specific Gravity 1.025 (Normal); Urine Amphetamines Negative (Negative); Urine Barbiturates Negative (Negative); Urine Benzodiazepines Negative (Negative); Urine Cocaine Negative (Negative); Urine MDMA Negative (Negative); Urine Methamphetamines Negative (Negative); Urine Phencyclidine Negative (Negative); Urine Tetrahydrocannabinol Negative (Negative); Urine pH 5 (Normal)
[2021-03-12 22:39] LABS: Urine Methadone Negative (Negative); Urine Oxycodone Negative (Negative); Urine Tricyclic Antidepressant Positive (Negative)
--- NOTE | 2021-03-12 23:04 | ED.PSYCH ---
HPI - Psych <Kendrick Gonzalez, DO - Last Filed: 03/14/21 00:44> General Chief Complaint: Psychiatric Symptoms Stated Complaint: psychotic break Time Seen by Provider: 03/12/21 21:38 Source: patient and EMS Mode of arrival: Ambulatory History of Present Illness HPI Narrative: 70-year-old female nonsmoker with history of diabetes, psychotic behavior with olivia, TIA presents by EMS for evaluation with they refer to as a psychotic break. Patient has had some recent changes in her medications and though she is not suicidal or homicidal she is struggling feels very unstable at home, and unsafe. She has been hearing increased voices and has had increased trouble sleeping. She recently stopped her Lunesta in lieu of Seroquel but doesn't think it is working. She wan'ts to be placed at a psychiatric facility Related Data Home Medications Medication Instructions Recorded Confirmed multivitamin 1 tab PO DAILY 04/30/20 03/13/21 Previous Rx's Medication Instructions Recorded indomethacin 25 mg capsule See Rx Instructions PO TID PRN #40 06/23/19 cap aspirin 81 mg tablet,delayed 81 mg PO DAILY #30 tab 05/14/20 release allopurinol 300 mg tablet See Rx Instructions .ROUTE 11/19/20 .COMPLEX #90 tab metformin 500 mg tablet See Rx Instructions .ROUTE 11/19/20 .COMPLEX #360 tab levothyroxine 150 mcg tablet See Rx Instructions .ROUTE 01/25/21 .COMPLEX #90 tab atorvastatin 40 mg tablet See Rx Instructions .ROUTE 02/03/21 .COMPLEX #90 tab lisinopril 10 mg tablet See Rx Instructions .ROUTE 02/03/21 .COMPLEX #90 tab divalproex 250 mg tablet,extended 250 mg PO BEDTIME #30 tab 02/08/21 release 24 hr divalproex 500 mg tablet,extended 1,500 mg PO BEDTIME #90 tab 02/08/21 release 24 hr quetiapine 100 mg tablet 300 mg PO BEDTIME #90 tab 03/01/21 Allergies Allergy/AdvReac Type Severity Reaction Status Date / Time Sulfa (Sulfonamide Allergy Mild RASH Verified 03/01/21 16:19 Antibiotics) haloperidol [HALOPERIDOL] Allergy Unknown Verified 03/01/21 16:19 lithium [LITHIUM] Allergy Unknown Verified 03/01/21 16:19 risperidone [RISPERIDONE] Allergy Unknown Verified 03/01/21 16:19 perphenazine AdvReac uncontrolled Verified 03/01/21 16:19 hand shaking Review of Systems <Kendrick Gonzalez DO - Last Filed: 03/14/21 00:44> Review of Systems Narrative: GENERAL: Denies chills, fatigue, malaise, fever, sweats. HEENT: Denies sinus pain, ear pain, sore throat, difficulty swallowing, dizziness. RESPIRATORY: Denies dyspnea, cough, wheezing, hemoptysis, sputum. CARDIOVASCULAR: Denies chest pain, palpitations, orthopnea, edema, GASTROINTESTINAL: Denies nausea, vomiting, abdominal pain, diarrhea, constipation, melena. : Denies dysuria, frequency, incontinence, hematuria, urinary retention. MUSCULOSKELETAL: denies weakness, joint pain, or bony pain SKIN: Denies rash, skin lesions, or other NEUROLOGIC: Denies weakness, headache, numbness, change in speech, confusion, seizures, incoordination. PSYCHIATRIC: See HPI 12 point review of systems is negative except for those stated above Patient History <Kendrick Gonzalez DO - Last Filed: 03/14/21 00:44> Medical History Ankle pain (2007) Anxiety (1994) Bipolar 1 disorder, depressed, partial remission Bipolar 1 disorder, mixed, full remission Bipolar disorder (1989) Bipolar I disorder, most recent episode depressed, severe without psychotic features Cataract (2011) Chicken pox CTS (carpal tunnel syndrome) (1987) Depression (1961) DM type 2 (diabetes mellitus, type 2) Foot pain (~2002) Fractures (2007) Hayfever (~1989) Hyperlipidemia Hypertension Hypothyroidism Measles Peripheral neuropathy (2013) RLS (restless legs syndrome) (1999) Sleep apnea (08/2015) Urinary incontinence Surgical History Anesthesia complication History of carpal tunnel repair (~1997) History of surgery (04/2008) Family History Child Age: 49 Arthritis Mother Heart disease Family history of fraternal twins Family history of identical twins Levin gestation with first Social History marital status: number of children: 2 household members: none lives independently: Yes caregiver/support person: No housing: house pets and animals: No education level: high school occupational status: unemployed leisure activities: reading and volunteer work other: walk,garden,visit friends,baptism,word puzzles seatbelt use: always water heater temp set < 120 deg: Yes working smoke detector in home: Yes fire extinguisher in home: Yes carbon monox detector in home: Yes Smoking Status: Never smoker second hand exposure: No alcohol intake: current substance use type: does not use during the past year weight has: other well-balanced diet: rarely or never daily servings fruits/ve-1 caffeine: Yes eating out: 1-3 times/week frequency: 3-4 times per week duration: 15-30 minutes/day Smoking Status: Never smoker alcohol intake frequency: holidays/special occasions only Substance Use Type: does not use Exam <Kendrick Gonzalez DO - Last Filed: 03/14/21 00:44> Narrative Exam Narrative: GENERAL: [70 year old patient appears stated age. Flat affect, poor eye contact HEAD: Atraumatic. Normocephalic. EYES: Pupils equal round and reactive. Extraocular motions intact. No scleral icterus. No injection or drainage. ENT: Nose without bleeding, purulent drainage. Throat without erythema, tonsillar hypertrophy or exudate. Airway patent. NECK: Trachea midline. Non tender CARDIOVASCULAR: Regular rate and rhythm without murmurs, gallops, or rubs. RESPIRATORY: Clear to auscultation. Breath sounds equal bilaterally. No wheezes, rales, or rhonchi. GASTROINTESTINAL: Abdomen soft, non-tender, nondistended. EXTREMITIES: No edema or joint tenderness. BACK: Nontender without deformity or crepitance. No flank tenderness. NEURO: AOx3. SKIN: No rash or erythema of visible areas Initial Vital Signs Initial Vital Signs: Vital Signs Temperature 97.0 F L 03/12/21 21:39 Pulse Rate 96 H 03/12/21 21:39 Respiratory Rate 18 03/12/21 21:39 Blood Pressure 104/57 L 03/12/21 21:39 Pulse Oximetry 93 03/12/21 21:39 <Hanna Martinez MD - Last Filed: 03/14/21 07:04> Initial Vital Signs Initial Vital Signs: Vital Signs Temperature 97.0 F L 03/12/21 21:39 Pulse Rate 96 H 03/12/21 21:39 Respiratory Rate 18 03/12/21 21:39 Blood Pressure 104/57 L 03/12/21 21:39 Pulse Oximetry 93 03/12/21 21:39 Course <Kendrick Gonzalez DO - Last Filed: 03/14/21 00:44> Orders Ordered: ED Orders 03/13/21 07:03 Consult to [facility] Search Marketing Specialist Stat 03/13/21 11:25 COVID19 - ADMIT (STRATEGIC MARKETING ASSOCIATE swab/PCR) Stat Vital Signs Vital signs: Vital Signs - 8 hr 03/13/21 20:57 Temperature 97.1 F L Pulse Rate 101 H Blood Pressure 127/69 Pulse Oximetry 97 <Hanna Martinez MD - Last Filed: 03/14/21 07:04> Orders Ordered: ED Orders 03/13/21 07:[facility]/13/21 11:25 COVID19 - ADMIT (STRATEGIC MARKETING ASSOCIATE swab/PCR) Stat Vital Signs Vital signs: Vital Signs - 8 hr 03/13/21 20:57 Temperature 97.1 F L Pulse Rate 101 H Blood Pressure 127/69 Pulse Oximetry 97 MDM - Psych <Kendrick Gonzalez DO - Last Filed: 03/14/21 00:44> Lab Data Result diagrams: 03/12/21 22:10 03/12/21 22:10 Labs: Lab Results 03/12/21 03/12/21 03/12/21 Range/Units 22:10 22:10 22:29 WBC 7.0 (4.5-11.0) X10^3/uL RBC 3.13 L (4.0-5.2) X10^6/uL Hgb 10.6 L (12.0-16.0) g/dL Hct 31.2 L (36-46) % MCV 99.7 (80-100) fL MCH 33.8 (26-34) PG MCHC 33.9 (30-36) % RDW 15.2 H (11.6-14.8) % Plt Count 175 (150-400) X10^3/uL Neut % (Auto) 43.5 L (50-75) % Lymph % (Auto) 43.5 H (25-40) % Harney % (Auto) 9.8 (3-14) % Eos % (Auto) 2.8 (2-4) % Baso % (Auto) 0.4 (0-2) % Neut # (Auto) 3000 (4589-7060) /uL Lymph # (Auto) 3000 (8180-5882) /uL Harney # (Auto) 700 (0-900) /uL Eos # (Auto) 200 (0-450) /uL Baso # (Auto) 0 (0-100) /uL Sodium 138 (137-145) mmol/L Potassium 5.0 (3.4-5.1) mmol/L Chloride 103 (98-107) mmol/L Carbon Dioxide 24 (22-32) mmol/L BUN 39 H (7-17) mg/dL Creatinine 1.34 H (0.52-1.04) mg/dL Estimated GFR 39.3 L (>60) mL/min BUN/Creatinine Ratio 29.1 H (6-22) Glucose 123 H (80-110) mg/dL Calcium 9.6 (8.4-10.2) mg/dL Total Bilirubin 0.2 (0.2-1.3) mg/dL AST 27 (14-36) IU/L ALT 15 (<35) IU/L Alkaline Phosphatase 59 (38-126) U/L Total Protein 6.7 (6.3-8.2) g/dL Albumin 4.0 (3.5-5.0) g/dL Globulin 2.7 (1.7-4.1) g/dL Albumin/Globulin Ratio 1.5 (1.0-2.8) U Opiates 300ng/mL cut Positive H (Negative) Ur Oxycodone Screen Negative (Negative) Urine Methadone Screen Negative (Negative) Ur Barbiturates Screen Negative (Negative) U Tricyclic Antidepress Positive H (Negative) Ur Phencyclidine Scrn Negative (Negative) Ur Amphetamines Screen Negative (Negative) U Methamphetamines Scrn Negative (Negative) Ur MDMA Scrn (Ecstasy) Negative (Negative) U Benzodiazepines Scrn Negative (Negative) Urine Cocaine Screen Negative (Negative) U Marijuana (THC) Screen Negative (Negative) Ethyl Alcohol < 10 ( - 10) mg/dL SARS-CoV-2 (PCR) (Negative) 03/13/21 Range/Units 11:25 WBC (4.5-11.0) X10^3/uL RBC (4.0-5.2) X10^6/uL Hgb (12.0-16.0) g/dL Hct (36-46) % MCV (80-100) fL MCH (26-34) PG MCHC (30-36) % RDW (11.6-14.8) % Plt Count (150-400) X10^3/uL Neut % (Auto) (50-75) % Lymph % (Auto) (25-40) % Harney % (Auto) (3-14) % Eos % (Auto) (2-4) % Baso % (Auto) (0-2) % Neut # (Auto) (4655-8598) /uL Lymph # (Auto) (5165-1129) /uL Harney # (Auto) (0-900) /uL Eos # (Auto) (0-450) /uL Baso # (Auto) (0-100) /uL Sodium (137-145) mmol/L Potassium (3.4-5.1) mmol/L Chloride (98-107) mmol/L Carbon Dioxide (22-32) mmol/L BUN (7-17) mg/dL Creatinine (0.52-1.04) mg/dL Estimated GFR (>60) mL/min BUN/Creatinine Ratio (6-22) Glucose (80-110) mg/dL Calcium (8.4-10.2) mg/dL Total Bilirubin (0.2-1.3) mg/dL AST (14-36) IU/L ALT (<35) IU/L Alkaline Phosphatase (38-126) U/L Total Protein (6.3-8.2) g/dL Albumin (3.5-5.0) g/dL Globulin (1.7-4.1) g/dL Albumin/Globulin Ratio (1.0-2.8) U Opiates 300ng/mL cut (Negative) Ur Oxycodone Screen (Negative) Urine Methadone Screen (Negative) Ur Barbiturates Screen (Negative) U Tricyclic Antidepress (Negative) Ur Phencyclidine Scrn (Negative) Ur Amphetamines Screen (Negative) U Methamphetamines Scrn (Negative) Ur MDMA Scrn (Ecstasy) (Negative) U Benzodiazepines Scrn (Negative) Urine Cocaine Screen (Negative) U Marijuana (THC) Screen (Negative) Ethyl Alcohol ( - 10) mg/dL SARS-CoV-2 (PCR) Negative (Negative) Urine Dip Bedside Urine Glucose Negative Bedside Urine Bilirubin - Negative Bedside Urine Ketone - Negative Urine Specific [place] 1.025 Bedside Urine Occult Blood - Negative Bedside Urine pH 6.0 Bedside Urine Protein +/- 15 Bedside Urine Urobilinogen - Negative Bedside Urine Nitrite - Negative Bedside Urine Leukocytes - Negative Esterase <Hanna Martinez MD - Last Filed: 03/14/21 07:04> Lab Data Labs: Lab Results 03/12/21 03/12/21 03/12/21 Range/Units 22:10 22:10 22:29 WBC 7.0 (4.5-11.0) X10^3/uL RBC 3.13 L (4.0-5.2) X10^6/uL Hgb 10.6 L (12.0-16.0) g/dL Hct 31.2 L (36-46) % MCV 99.7 (80-100) fL MCH 33.8 (26-34) PG MCHC 33.9 (30-36) % RDW 15.2 H (11.6-14.8) % Plt Count 175 (150-400) X10^3/uL Neut % (Auto) 43.5 L (50-75) % Lymph % (Auto) 43.5 H (25-40) % Harney % (Auto) 9.8 (3-14) % Eos % (Auto) 2.8 (2-4) % Baso % (Auto) 0.4 (0-2) % Neut # (Auto) 3000 (3431-9809) /uL Lymph # (Auto) 3000 (7095-9835) /uL Harney # (Auto) 700 (0-900) /uL Eos # (Auto) 200 (0-450) /uL Baso # (Auto) 0 (0-100) /uL Sodium 138 (137-145) mmol/L Potassium 5.0 (3.4-5.1) mmol/L Chloride 103 (98-107) mmol/L Carbon Dioxide 24 (22-32) mmol/L BUN 39 H (7-17) mg/dL Creatinine 1.34 H (0.52-1.04) mg/dL Estimated GFR 39.3 L (>60) mL/min BUN/Creatinine Ratio 29.1 H (6-22) Glucose 123 H (80-110) mg/dL Calcium 9.6 (8.4-10.2) mg/dL Total Bilirubin 0.2 (0.2-1.3) mg/dL AST 27 (14-36) IU/L ALT 15 (<35) IU/L Alkaline Phosphatase 59 (38-126) U/L Total Protein 6.7 (6.3-8.2) g/dL Albumin 4.0 (3.5-5.0) g/dL Globulin 2.7 (1.7-4.1) g/dL Albumin/Globulin Ratio 1.5 (1.0-2.8) U Opiates 300ng/mL cut Positive H (Negative) Ur Oxycodone Screen Negative (Negative) Urine Methadone Screen Negative (Negative) Ur Barbiturates Screen Negative (Negative) U Tricyclic Antidepress Positive H (Negative) Ur Phencyclidine Scrn Negative (Negative) Ur Amphetamines Screen Negative (Negative) U Methamphetamines Scrn Negative (Negative) Ur MDMA Scrn (Ecstasy) Negative (Negative) U Benzodiazepines Scrn Negative (Negative) Urine Cocaine Screen Negative (Negative) U Marijuana (THC) Screen Negative (Negative) Ethyl Alcohol < 10 ( - 10) mg/dL SARS-CoV-2 (PCR) (Negative) 03/13/21 Range/Units 11:25 WBC (4.5-11.0) X10^3/uL RBC (4.0-5.2) X10^6/uL Hgb (12.0-16.0) g/dL Hct (36-46) % MCV (80-100) fL MCH (26-34) PG MCHC (30-36) % RDW (11.6-14.8) % Plt Count (150-400) X10^3/uL Neut % (Auto) (50-75) % Lymph % (Auto) (25-40) % [place] % (Auto) (3-14) % Eos % (Auto) (2-4) % Baso % (Auto) (0-2) % Neut # (Auto) (2953-5605) /uL Lymph # (Auto) (2841-0441) /uL Harney # (Auto) (0-900) /uL Eos # (Auto) (0-450) /uL Baso # (Auto) (0-100) /uL Sodium (137-145) mmol/L Potassium (3.4-5.1) mmol/L Chloride (98-107) mmol/L Carbon Dioxide (22-32) mmol/L BUN (7-17) mg/dL Creatinine (0.52-1.04) mg/dL Estimated GFR (>60) mL/min BUN/Creatinine Ratio (6-22) Glucose (80-110) mg/dL Calcium (8.4-10.2) mg/dL Total Bilirubin (0.2-1.3) mg/dL AST (14-36) IU/L ALT (<35) IU/L Alkaline Phosphatase (38-126) U/L Total Protein (6.3-8.2) g/dL Albumin (3.5-5.0) g/dL Globulin (1.7-4.1) g/dL Albumin/Globulin Ratio (1.0-2.8) U Opiates 300ng/mL cut (Negative) Ur Oxycodone Screen (Negative) Urine Methadone Screen (Negative) Ur Barbiturates Screen (Negative) U Tricyclic Antidepress (Negative) Ur Phencyclidine Scrn (Negative) Ur Amphetamines Screen (Negative) U Methamphetamines Scrn (Negative) Ur MDMA Scrn (Ecstasy) (Negative) U Benzodiazepines Scrn (Negative) Urine Cocaine Screen (Negative) U Marijuana (THC) Screen (Negative) Ethyl Alcohol ( - 10) mg/dL SARS-CoV-2 (PCR) Negative (Negative) Urine Dip Bedside Urine Glucose Negative Bedside Urine Bilirubin - Negative Bedside Urine Ketone - Negative Urine Specific [place] 1.025 Bedside Urine Occult Blood - Negative Bedside Urine pH 6.0 Bedside Urine Protein +/- 15 Bedside Urine Urobilinogen - Negative Bedside Urine Nitrite - Negative Bedside Urine Leukocytes - Negative Esterase MDM Narrative Medical decision making narrative: 70-year-old woman with a history of bipolar 1 who presents with increasing psychotic voices bleeding she needs hospitalization. Current medications include Depakote ER 1750 mg (3 500 mg pills, 1250 mg pill) she has been stable on as monotherapy for a number of years. In January had an episode with psychotic and mood features not clearly olivia but did present [facility] with catatonia. Seroquel was increased from 200 mg to 300 mg to focus on voices/nightmares/sleep. She sees Dr. Storey, psychiatrist. She has been taking all medications as prescribed. Both Depakote and Seroquel are HS meds. 9:20 spoke with Social Work RE voluntary admit for increased voices 12:00 Social Work - unclear which direction to go. Not currently suicidal/homicidal. Patient waffling on inpt vs home and it is not completely clearl that she would be safe to discharge home in light of the increased voices. This has been a chronic issue for many years with many psychiatric admits. Pt has given permission to talk with her daughter to help with overall perspective. 2pm LABORER SYRUP MACHINE Zachery has accpeted Volulntary admit. Accepting [facility]. Arrive around 10pm tonight. Critical Care Time <Kendrick Gonzalez DO - Last Filed: 03/14/21 00:44> Critical Care Time Critical Care Time: Yes Total Critical Care Time: 30 Attestation: The high probability of a clinically significant, sudden or life threatening deterioration of the [Psych] system(s) required my full and direct attention, intervention and personal management. The aggregate critical care time was [30] minutes. This time is in addition to time spent performing reported procedures but includes the following: x[] Data Review and interpretation [x] Patient assessment and monitoring of vital signs [x] Documentation [x] Medication orders and management Discharge Plan Departure Patient Disposition: Xfer Psychiatric Hosp Clinical Impression: Bipolar 1 disorder with moderate olivia Referrals: Alina Corcoran MD [Primary Care Provider] -
[2021-03-13 12:25] LABS: COVID19 - ADMIT (NP swab/PCR) Negative (Negative)
--- NOTE | 2021-03-13 13:27 | CM.SWNOTE ---
Addendum entered by RAFA Muhammad 03/13/21 13:48: ADD: SW called pt's Dtr Lynne and updated her on accepting facility and Dtr very appreciative. BF Addendum entered by RAFA Muhammad 03/13/21 13:43: ADD: Return call from Moni at [facility] and they can accept pt today but would like arrival around 2200 and accepting MD is Rohit ROBERSON and RN report number is [phone] but would like an updated set of vitals prior to d/c. BF Addendum entered by RAFA Muhammad 03/13/21 13:35: ADD: SW called [facility] and they have an opening in their MH Unit and willing to review and they have had pt there in Dec and know her. ADDY faxed clinicals and CONSTRUCTION LABORER note to review. ADDY updated ED mortgage processor. BF Original Note: Patient is a 70 yo female who was admitted to [facility] ED on 03/12/21 for Psychotic Break. Pt has [facility] for insurance and her PCP is Dr. Alina Corcoran. EMR was reviewed. Per ED MD, pt has been calm and cooperative and slept most of the night and able to eat and drink and medically stable for safe d/c planning for Inpt MH tx. See CONSTRUCTION LABORER assessment below. RAFA Muhammad Discharge Planning/Care Management ED Psychiatric Symptoms Assessment Start: 03/12/21 21:56 Freq: Status: Active Protocol: Document 03/12/21 21:59 KM (Rec: 03/12/21 22:02 KMW [id number]) Psychiatric Symptoms Assessment Symptoms/Complaint psychotic break Duration Getting Worse History Of Same Yes Context Unknown Improves With Medication Associated Psychiatric Symptoms Auditory Hallucinations, Delusions,Racing Thoughts Associated Symptoms Insomnia Level of Consciousness Alert,Appropriate,Awake, Follows Commands Patient Orientation Name,Age,Birthday,Month,Place, Situation Patient Behavior/Mood Cooperative,Flat Ability to Follow Directions Good Affect Description Blunted,Calm,Flat Patient Appearance Well Groomed Hallucination Type Auditory Delusion Description Bizarre,Paranoid Ideation Thought Process: Goal-directed Depressive Symptoms Back Pain,Difficulty Sleeping Suicidal Ideation None Homicidal Ideation None Nausea/Vomiting None Document 03/13/21 00:00 HNG (Rec: 03/13/21 00:35 HNG [id number]) Psychiatric Symptoms Assessment Patient Behavior/Mood Asleep Document 03/13/21 02:00 HNG (Rec: 03/13/21 05:12 HNG [id number]) Psychiatric Symptoms Assessment Patient Behavior/Mood Asleep Document 03/13/21 04:00 HNG (Rec: 03/13/21 05:12 HNG [id number]) Psychiatric Symptoms Assessment Patient Behavior/Mood Asleep CONSTRUCTION LABORER - Stator Plate Washer Assessment Start: 03/13/21 13:04 Freq: Status: Active Protocol: Document 03/13/21 13:04 BF (Rec: 03/13/21 13:27 BF [id number]) CONSTRUCTION LABORER/Stator Plate Washer Assessment Start date 03/13/21 Visit Start Time 10:30 End date 03/13/21 Visit End Time 11:30 Total time Care Management spent on 140 min patient visit-in minutes Presenting Problem Pt presented to ED via EMS after pt called 911 thinking she had killed 3 males in her bedroom. Police called EMS due to the signs of pt having a psychotic episode. Pt voluntarily came to the ED for evaluation. Precipitating Event(s) Pt states that she has struggled with a psychotic break for over a month and feels she has not been able to get out of it. Pt states that she has had a medication change recently but unsure how long ago towards help with her sleep challenges and voices. Patient Strengths Pt calm and cooperative, aware of her past decisions based on voices telling her to do things. Current Behavioral Health Provider(s) Pt established with Dr. Rodrigez Facility, Provider, Ph. # Cordelia at [facility] in [place] Psych. Hx Mental Health and Chemical Pt admits to multiple Inpt MH Dependency tx stays, mostly voluntary with at least one detainment Psychiatric Hospitalizations (date(s)/ Most recent is [facility] MH unit in location) Dec 2020 from 12/15/20-. Psychosocial information & Support Pt states that her supportive Systems Dtr Lynne lives locally and pt states she has one close friend who is supportive and is aware of her mental health dx. School/Work Pt denies work but states she gets social security each month Legal Matters - Outstanding Issues Denies Orientation (Person/Place/Time) Pt seems to be oriented x3 although difficult historian with past events and timeline Stated Mood Psychotic break but calm and feels safe in the hospital Affect (Congruent with Mood?) Flat, but able to make eye contact but seems to be reacting to external/internal stimuli Thought Content - Specify/Describe Pt confirms that she has been Obsessions, Delusions, Hallucinations having a psychotic break for over a month and struggling to maintain at home without having regular delusions and hearing voices. Pt denies suicidal ideation or H.I. and denies that the voices are telling her to harm herself or others Thought Processes (Qryzsfl-Nlplyvfu-Dqyw Somewhat disorganized and Gzazowqp-Ogcutsdn-Qeloawwdej- tangential but also able to Khiinecidjqwhs-Vilfurf-Wbqyrniiehaw- participate in discussion but Thought Blocking) difficult historian Speech (Ckkplu-Wwtn-Azvhysc-Rapid-Soft- Normal Loud-Pressured) Motor (Ldarkn-Yweneuvwc-Dlbx-Other) Slow Insight (Ucxw-Jurt-Nuqj/Limited) Poor/limited due to current delusions and hallucinations Judgement (Qrcx-Ajgj-Dzsz/Limited) Limited Memory (Zmjdjjtcl-Cvzbkk-Yawpby, Remote Impaired-Intact) Concentration (Intact-Impaired) Intact Behavior (Appropriate-Inappropriate) Appropriate, calm and cooperative, resting Suicidal Ideation (Plan) No Homicidal Ideation (Plan) No Intervention CONSTRUCTION LABORER met bedside with pt in the ED and pt resting in the bed but willing to participate in discussion. Pt is a difficult historian with timelines and dates/names of treatment facilities she has been before . Pt endorses ongoing voices and hallucinations/delusion but denies active S.I or H.I. or that the voices are telling her to harm herself or others but pt states she does not feel that she is safe for d/c to the community to her apt alone as she has been attempting to get out of her psychotic break for over a month. Pt states that voices have encouraged her to use a knife on her arms in the past but without need for medical intervention or much visual appearance of cutting. Pt confirms that she is voluntarily agreeable to Inpt MH tx once discussion regarding home and lack of supports in the home currently with ongoing mental health crisis active and pt agreeable to CONSTRUCTION LABORER calling Inpt MH units for voluntary placement for bed availability and pt also agreeable with CONSTRUCTION LABORER calling her Dtr Lynne who lives locally. CONSTRUCTION LABORER called Dtr Lynne who is tearful and confirms that pt has been actively having dellusions/hallucinations for over a month and is often cautious and mistrusting of herself and others and does not always admit her symptoms to others but attempts to downplay her struggles. Dtr Lynne feels that pt needs Inpt MH tx for stabilization and med management and unsafe for direct d/c to the community. RA Plan CONSTRUCTION LABORER updated MD and RN who also feel that pt is unsafe for d/ c to the community and medically stable to d/c to Inpt MH tx for stabilization. CONSTRUCTION LABORER to begin attempting voluntary Inpt MH tx placement for the pt prior to safe return home.
[2021-03-13 14:53] VITALS: BP 126/69; PULSE 95; O2SAT 93
[2021-03-13 20:57] VITALS: BP 127/69; PULSE 101; TEMP 36.2; O2SAT 97
== END 2021-03-13 22:14 ==
PROVIDERS: Emergency Medicine; Emergency Provider Emergency Medicine; Family Provider Family Medicine; PCP Family Medicine
DX: F31.9 Bipolar disorder, unspecified (principal); Z20.822 Contact with and (suspected) exposure to COVID-19
CPT/HCPCS: 36415; 80053; 80305; 80320; 81003; 85025; 87635; 99284; 99291; C9803

== ENCOUNTER 2021-04-04 16:02 | Emergency (ER) | payer MEDICARE, SELFPAY ==
[2020-05-13 23:23] VITALS: BMI 43.2
[2021-04-04 16:04] VITALS: BP 154/89; PULSE 98; RESP 24; TEMP 36.5; O2SAT 100
[2021-04-04 17:09] LABS: Add Manual Diff / Slide Review NO; Basophils Absolute Auto 100 /uL (0-100); Basophils Percent Auto 0.5 % (0-2); Eosinophils Absolute Auto 0 /uL (0-450); Hematocrit 38.2 % (36-46); Hemoglobin 12.7 g/dL (12.0-16.0); Lymphocytes Absolute Auto 2200 /uL (1100-4500); Lymphocytes Percent Auto 19.4 % (25-40); Mean Corpuscular HGB Conc 33.2 % (30-36); Mean Corpuscular Hemoglobin 32.7 PG (26-34); Mean Corpuscular Volume 98.3 fL (80-100); Monocytes Absolute Auto 1000 /uL (0-900); Monocytes Percent Auto 8.8 % (3-14); Neutrophils Absolute Auto 8000 /uL (1500-7000); Neutrophils Percent Auto 71.3 % (50-75); Platelet Count 193 X10^3/uL (150-400); Red Blood Cell Count 3.89 X10^6/uL (4.0-5.2); Red Cell Distribution Width 15.6 % (11.6-14.8); White Blood Cell Count 11.3 X10^3/uL (4.5-11.0)
[2021-04-04 17:18] LABS: Acetaminophen < 10 ug/mL (10-30); Alanine Aminotransferase 112 IU/L (<35); Albumin 4.8 g/dL (3.5-5.0); Albumin Globulin Ratio 1.4 (1.0-2.8); Alkaline Phosphatase 75 U/L (38-126); Aspartate Aminotransferase 229 IU/L (14-36); BUN Creatinine Ratio 24.3 (6-22); Bilirubin Total 0.6 mg/dL (0.2-1.3); Blood Urea Nitrogen 60 mg/dL (7-17); Calcium 9.3 mg/dL (8.4-10.2); Carbon Dioxide 23 mmol/L (22-32); Chloride 99 mmol/L (98-107); Estimated Glomerular Filt Rate 19.4 mL/min (>60); Ethanol (ETOH) < 10 mg/dL; Globulin 3.5 g/dL (1.7-4.1); Glucose 150 mg/dL (80-110); HEMOLYSIS < 15 (0-50); Salicylate < 1.0 mg/dL (<20); Sodium 136 mmol/L (137-145); Total Protein 8.3 g/dL (6.3-8.2)
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
[2021-04-04 17:44] LABS: Free T4, Direct Thyroxine 0.73 ng/dL (0.78-2.19)
[2021-04-04 17:57] LABS: COVID19 -Nasal RAPID POSITIVE (Negative)
[2021-04-04 17:58] LABS: Thyroid Stimulating Hormone 4.94 uIU/mL (0.47-4.68)
[2021-04-04 18:13] LABS: UR Morphine/Opiate cutoff 300 Negative (Negative); Ur Creatinine Normal (Normal); Ur Specific Gravity Normal (Normal); Urine Amphetamines Negative (Negative); Urine Barbiturates Negative (Negative); Urine Benzodiazepines Negative (Negative); Urine Cocaine Negative (Negative); Urine MDMA Negative (Negative); Urine Methadone Negative (Negative); Urine Methamphetamines Negative (Negative); Urine Oxycodone Negative (Negative); Urine Phencyclidine Negative (Negative); Urine Tetrahydrocannabinol Negative (Negative); Urine Tricyclic Antidepressant Negative (Negative); Urine pH Normal (Normal)
[2021-04-04 18:16] LABS: Amorphous Sediment Urine 2+; Bacteria Urine Few (2-10); Mucus Urine 2+ (Negative); RBC Urine None Seen (0-5/HPF); Squamous Epithelial Cell Urine 5-10 /HPF (0-5/HPF); WBC Urine 1-5/HPF (0-5/HPF)
--- NOTE | 2021-04-04 18:19 | CM.SWNOTE ---
Addendum entered by Aziza Segundo 04/04/21 20:04: [facility] offer to take patient home, patient agrees to come back to ED. TYING MACHINE OPERATOR LUMBER updates Dr. Storey. Dr. Storey recommends [facility] dispatch and states she will be out of the office this week but she is informing her team to meet with patient in AM and Dr. Umaña may be able to consult with patient tomorrow. Morning. TYING MACHINE OPERATOR LUMBER reviews the above with ED provider Dr. Hanna. RAFA Byrd Addendum entered by Aziza Segundo 04/04/21 19:24: TYING MACHINE OPERATOR LUMBER Note Registration reports to TYING MACHINE OPERATOR LUMBER that patient threw her phone in the garbage and reported that she was being tracked. With gloves, TYING MACHINE OPERATOR LUMBER placed patient's phone with other lost and forgotten belongings. It is identified that patient has been wandering the [facility] halls and going in and out of the ED lobby bathroom. TYING MACHINE OPERATOR LUMBER approaches patient and offers patient to stay in ED in another room and patient declines and states that she does not want to return to ED. Patient states that she has a ride and a friend is coming to pick her up. TYING MACHINE OPERATOR LUMBER calls [facility] dispatch and provides update that patient is in [facility] refusing to return to ED. RAFA Byrd Original Note: TYING MACHINE OPERATOR LUMBER Note TYING MACHINE OPERATOR LUMBER calls patient's daughter and leaves requesting return call. TYING MACHINE OPERATOR LUMBER calls [facility] intake and they know of patient and take take patient for voluntary inpatient if patient is medically clear. EMR labs report that patient is Covid-19 positive. Patient is informed of this and becomes aware that she will not get to go to [facility]. Patient proceeds to OBS AMA at aprox 1800. TYING MACHINE OPERATOR LUMBER attempts to encourage patient to stay but patient refuses and leaves by foot. Patient left her gloves (socks) and hat. There is concern for patient's grave disability, TYING MACHINE OPERATOR LUMBER to inform patient's family and psychiatrist. TYING MACHINE OPERATOR LUMBER receives return call from patient's daughter Lynne who endorses that she is Covid + and that she saw patient on [address]. Daughter endorses that she is without a car when TYING MACHINE OPERATOR LUMBER informs daughter that patient left AMA. TYING MACHINE OPERATOR LUMBER informs daughter that TYING MACHINE OPERATOR LUMBER is going to request that an outreach team at the very least look for patient and that patient's psychiatrist is informed. TYING MACHINE OPERATOR LUMBER states that TYING MACHINE OPERATOR LUMBER will provide daughter Lynne with any updates regarding patient's whereabouts. TYING MACHINE OPERATOR LUMBER calls Psychiatrist Dr. Storey and informs her of this. After further consultation with Dr. Storey TYING MACHINE OPERATOR LUMBER contacts the [facility] to inform a DCR. TYING MACHINE OPERATOR LUMBER speaks with ROSELYN Harris (Ph. # [phone]) who recommends that TYING MACHINE OPERATOR LUMBER report this to [employer]. Migue states that he will authorize to take her into custody and if [employer] proceed with this plan it is recommended that [facility] be informed and Dr. Storey and TYING MACHINE OPERATOR LUMBER provide affidavits. TYING MACHINE OPERATOR LUMBER calls [employer] dispatch and provides report. [facility] LE to f/u with TYING MACHINE OPERATOR LUMBER. Migue endorses he will f/u with TYING MACHINE OPERATOR LUMBER prior to the end of TYING MACHINE OPERATOR LUMBER's shift. Plan: TYING MACHINE OPERATOR LUMBER to f/u with [facility] and [facility] regarding patient. RAFA Byrd
--- NOTE | 2021-04-04 19:50 | PC.NURSE ---
Warm blanket given to patient while the RN is talking with patient.
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
--- NOTE | 2021-04-04 20:01 | PC.NURSE ---
patient just got up to walk out to the hallway asking if her friend was her. We nicely told her no and she walked back into the room.
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
[2021-04-04 22:53] VITALS: PULSE 95; RESP 18; TEMP 37; O2SAT 93
--- NOTE | 2021-04-04 22:59 | ED_ITS ---
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 (Negative) Ethyl Alcohol ( - 10) mg/dL SARS-CoV-2 (PCR) Positive H (Negative) 04/04/21 04/05/21 Range/Units 17:45 15:17 WBC (4.5-11.0) X10^3/uL RBC (4.0-5.2) X10^6/uL Hgb (12.0-16.0) g/dL Hct (36-46) % MCV (80-100) fL MCH (26-34) PG MCHC (30-36) % RDW (11.6-14.8) % Plt Count (150-400) X10^3/uL Neut % (Auto) (50-75) % Lymph % (Auto) (25-40) % [place] % (Auto) (3-14) % Eos % (Auto) (2-4) % Baso % (Auto) (0-2) % Neut # (Auto) (2664-3448) /uL Lymph # (Auto) (0801-5559) /uL [place] # (Auto) (0-900) /uL Eos # (Auto) (0-450) /uL Baso # (Auto) (0-100) /uL Sodium 139 (137-145) mmol/L Potassium 3.8 (3.4-5.1) mmol/L Chloride 108 H (98-107) mmol/L Carbon Dioxide 26 (22-32) mmol/L BUN 54 H (7-17) mg/dL Creatinine 1.36 H (0.52-1.04) mg/dL Estimated GFR 38.7 L (>60) mL/min BUN/Creatinine Ratio 39.7 H (6-22) Glucose 104 (80-110) mg/dL Calcium 8.1 L (8.4-10.2) mg/dL Total Bilirubin (0.2-1.3) mg/dL AST (14-36) IU/L ALT (<35) IU/L Alkaline Phosphatase (38-126) U/L Total Protein (6.3-8.2) g/dL Albumin (3.5-5.0) g/dL Globulin (1.7-4.1) g/dL Albumin/Globulin Ratio (1.0-2.8) TSH (0.47-4.68) uIU/mL Free T4 (0.78-2.19) ng/dL Urine RBC None seen (0-5/HPF) Urine WBC 1-5/hpf (0-5/HPF) Ur Squamous Epith Cells 5-10 /hpf H (0-5/HPF) Amorphous Sediment 2+ Urine Bacteria Few (2-10) H (None) Urine Mucus 2+ H (Negative) Ur Culture Indicated? Culture not indicate Salicylates (<20) mg/dL U Opiates 300ng/mL cut (Negative) Ur Oxycodone Screen (Negative) Urine Methadone Screen (Negative) Acetaminophen (10-30) ug/mL Ur Barbiturates Screen (Negative) Total Valproic Acid (50-100) ug/mL U Tricyclic Antidepress (Negative) Ur Phencyclidine Scrn (Negative) Ur Amphetamines Screen (Negative) U Methamphetamines Scrn (Negative) Ur MDMA Scrn (Ecstasy) (Negative) U Benzodiazepines Scrn (Negative) Urine Cocaine Screen (Negative) U Marijuana (THC) Screen (Negative) Ethyl Alcohol ( - 10) mg/dL SARS-CoV-2 (PCR) (Negative) Urine Dip Bedside Urine Glucose Negative Bedside Urine Bilirubin - Negative Bedside Urine Ketone - Negative Urine Specific Mccarley 1.030 Bedside Urine Occult Blood - Negative Bedside Urine pH 5.5 Bedside Urine Protein ++ 100 Bedside Urine Urobilinogen - Negative Bedside Urine Nitrite - Negative Bedside Urine Leukocytes - Negative Esterase MDM Narrative Medical decision making narrative: Patient did know that she was in the emergency department. She did know what year it was. She did know her address. She is COVID positive but does not seem to be exhibiting any symptoms for this. No respiratory distress and no fevers. She does admit that she has not been taking any for medicines at least for the past couple days. She was somewhat irritable in the room during my exam. I offered her medication to help her calm or potentially even to help her sleep but she declined any of these medications. Given her COVID positive status it is unlikely that we would find a facility willing to take the patient. Plan will be is to have psychiatry come and evaluate the patient in the emergency department tomorrow. Patient is not restrained. She is able to leave the emerg ency department if she wishes. Care turned over to Dr. Naranjo to follow up and disposition. 04/05/21 8am kevin-patient hostile to nursing staff hitting nursing staff. She states do not touch me no one has touched her or been aggressive towards her. Patient walked out of the emergency department she was if her jacket and she was top list in the entryway the hospital. She also started taking off her pants. She did come back into the emergency department. 1 member was able to calm her she was given a be 50 to for her own safety and hours. She was put in a locked room until she fell asleep. She is greatly disabled knot in her right mind. It is very cold outside and walking around naked. 930-Dr. Umaña called notified of patient. Agrees with teeth are evaluation, he is happy to see her tomorrow if she is still in the emergency department recommends restarting her home medication. Patient sleeping, door unlcoked, sitter in place. covered in blankets. 10am- DCR notified. Patient will be walk wait because she is COVID positive but happy to evaluate when she is awake. She has been sleeping all day. Restart home meds, Psych eval in am. I have updated daughter Lakshmi at 9:38 p.m. when [id number] who also has COVID and states that she has had it take her mother home however her mother often refuses to go with her. <Hanna Donald MD - Last Filed: 04/07/21 15:20> Lab Data Labs: Lab Results 04/04/21 04/04/21 04/04/21 Range/Units 16:55 16:55 16:55 WBC 11.3 H (4.5-11.0) X10^3/uL RBC 3.89 L (4.0-5.2) X10^6/uL Hgb 12.7 (12.0-16.0) g/dL Hct 38.2 (36-46) % MCV 98.3 (80-100) fL MCH 32.7 (26-34) PG MCHC 33.2 (30-36) % RDW 15.6 H (11.6-14.8) % Plt Count 193 (150-400) X10^3/uL Neut % (Auto) 71.3 (50-75) % Lymph % (Auto) 19.4 L (25-40) % [place] % (Auto) 8.8 (3-14) % Eos % (Auto) 0.0 L (2-4) % Baso % (Auto) 0.5 (0-2) % Neut # (Auto) 8000 H (8854-6327) /uL Lymph # (Auto) 2200 (9807-4116) /uL [place] # (Auto) 1000 H (0-900) /uL Eos # (Auto) 0 (0-450) /uL Baso # (Auto) 100 (0-100) /uL Sodium 136 L (137-145) mmol/L Potassium 4.0 (3.4-5.1) mmol/L Chloride 99 (98-107) mmol/L Carbon Dioxide 23 (22-32) mmol/L BUN 60 H (7-17) mg/dL Creatinine 2.47 H (0.52-1.04) mg/dL Estimated GFR 19.4 L (>60) mL/min BUN/Creatinine Ratio 24.3 H (6-22) Glucose 150 H (80-110) mg/dL Calcium 9.3 (8.4-10.2) mg/dL Total Bilirubin 0.6 (0.2-1.3) mg/dL AST 229 H (14-36) IU/L ALT 112 H (<35) IU/L Alkaline Phosphatase 75 (38-126) U/L Total Protein 8.3 H (6.3-8.2) g/dL Albumin 4.8 (3.5-5.0) g/dL Globulin 3.5 (1.7-4.1) g/dL Albumin/Globulin Ratio 1.4 (1.0-2.8) TSH 4.94 H (0.47-4.68) uIU/mL Free T4 0.73 L (0.78-2.19) ng/dL Urine RBC (0-5/HPF) Urine WBC (0-5/HPF) Ur Squamous Epith Cells (0-5/HPF) Amorphous Sediment Urine Bacteria (None) Urine Mucus (Negative) Ur Culture Indicated? Salicylates < 1.0 (<20) mg/dL U Opiates 300ng/mL cut (Negative) Ur Oxycodone Screen (Negative) Urine Methadone Screen (Negative) Acetaminophen < 10 L (10-30) ug/mL Ur Barbiturates Screen (Negative) Total Valproic Acid (50-100) ug/mL U Tricyclic Antidepress (Negative) Ur Phencyclidine Scrn (Negative) Ur Amphetamines Screen (Negative) U Methamphetamines Scrn (Negative) Ur MDMA Scrn (Ecstasy) (Negative) U Benzodiazepines Scrn (Negative) Urine Cocaine Screen (Negative) U Marijuana (THC) Screen (Negative) Ethyl Alcohol < 10 ( - 10) mg/dL SARS-CoV-2 (PCR) (Negative) 04/04/21 04/04/21 04/04/21 Range/Units 16:55 17:04 17:45 WBC (4.5-11.0) X10^3/uL RBC (4.0-5.2) X10^6/uL Hgb (12.0-16.0) g/dL Hct (36-46) % MCV (80-100) fL MCH (26-34) PG MCHC (30-36) % RDW (11.6-14.8) % Plt Count (150-400) X10^3/uL Neut % (Auto) (50-75) % Lymph % (Auto) (25-40) % [place] % (Auto) (3-14) % Eos % (Auto) (2-4) % Baso % (Auto) (0-2) % Neut # (Auto) (2858-8984) /uL Lymph # (Auto) (8349-2578) /uL [place] # (Auto) (0-900) /uL Eos # (Auto) (0-450) /uL Baso # (Auto) (0-100) /uL Sodium (137-145) mmol/L Potassium (3.4-5.1) mmol/L Chloride (98-107) mmol/L Carbon Dioxide (22-32) mmol/L BUN (7-17) mg/dL Creatinine (0.52-1.04) mg/dL Estimated GFR (>60) mL/min BUN/Creatinine Ratio (6-22) Glucose (80-110) mg/dL Calcium (8.4-10.2) mg/dL Total Bilirubin (0.2-1.3) mg/dL AST (14-36) IU/L ALT (<35) IU/L Alkaline Phosphatase (38-126) U/L Total Protein (6.3-8.2) g/dL Albumin (3.5-5.0) g/dL Globulin (1.7-4.1) g/dL Albumin/Globulin Ratio (1.0-2.8) TSH (0.47-4.68) uIU/mL Free T4 (0.78-2.19) ng/dL Urine RBC (0-5/HPF) Urine WBC (0-5/HPF) Ur Squamous Epith Cells (0-5/HPF) Amorphous Sediment Urine Bacteria (None) Urine Mucus (Negative) Ur Culture Indicated? Salicylates (<20) mg/dL U Opiates 300ng/mL cut Negative (Negative) Ur Oxycodone Screen Negative (Negative) Urine Methadone Screen Negative (Negative) Acetaminophen (10-30) ug/mL Ur Barbiturates Screen Negative (Negative) Total Valproic Acid 32 L (50-100) ug/mL U Tricyclic Antidepress Negative (Negative) Ur Phencyclidine Scrn Negative (Negative) Ur Amphetamines Screen Negative (Negative) U Methamphetamines Scrn Negative (Negative) Ur MDMA Scrn (Ecstasy) Negative (Negative) U Benzodiazepines Scrn Negative (Negative) Urine Cocaine Screen Negative (Negative) U Marijuana (THC) Screen Negative (Negative) Ethyl Alcohol ( - 10) mg/dL SARS-CoV-2 (PCR) Positive H (Negative) 04/04/21 04/05/21 Range/Units 17:45 15:17 WBC (4.5-11.0) X10^3/uL RBC (4.0-5.2) X10^6/uL Hgb (12.0-16.0) g/dL Hct (36-46) % MCV (80-100) fL MCH (26-34) PG MCHC (30-36) % RDW (11.6-14.8) % Plt Count (150-400) X10^3/uL Neut % (Auto) (50-75) % Lymph % (Auto) (25-40) % [place] % (Auto) (3-14) % Eos % (Auto) (2-4) % Baso % (Auto) (0-2) % Neut # (Auto) (9296-9503) /uL Lymph # (Auto) (5528-1972) /uL [place] # (Auto) (0-900) /uL Eos # (Auto) (0-450) /uL Baso # (Auto) (0-100) /uL Sodium 139 (137-145) mmol/L Potassium 3.8 (3.4-5.1) mmol/L Chloride 108 H (98-107) mmol/L Carbon Dioxide 26 (22-32) mmol/L BUN 54 H (7-17) mg/dL Creatinine 1.36 H (0.52-1.04) mg/dL Estimated GFR 38.7 L (>60) mL/min BUN/Creatinine Ratio 39.7 H (6-22) Glucose 104 (80-110) mg/dL Calcium 8.1 L (8.4-10.2) mg/dL Total Bilirubin (0.2-1.3) mg/dL AST (14-36) IU/L ALT (<35) IU/L Alkaline Phosphatase (38-126) U/L Total Protein (6.3-8.2) g/dL Albumin (3.5-5.0) g/dL Globulin (1.7-4.1) g/dL Albumin/Globulin Ratio (1.0-2.8) TSH (0.47-4.68) uIU/mL Free T4 (0.78-2.19) ng/dL Urine RBC None seen (0-5/HPF) Urine WBC 1-5/hpf (0-5/HPF) Ur Squamous Epith Cells 5-10 /hpf H (0-5/HPF) Amorphous Sediment 2+ Urine Bacteria Few (2-10) H (None) Urine Mucus 2+ H (Negative) Ur Culture Indicated? Culture not indicate Salicylates (<20) mg/dL U Opiates 300ng/mL cut (Negative) Ur Oxycodone Screen (Negative) Urine Methadone Screen (Negative) Acetaminophen (10-30) ug/mL Ur Barbiturates Screen (Negative) Total Valproic Acid (50-100) ug/mL U Tricyclic Antidepress (Negative) Ur Phencyclidine Scrn (Negative) Ur Amphetamines Screen (Negative) U Methamphetamines Scrn (Negative) Ur MDMA Scrn (Ecstasy) (Negative) U Benzodiazepines Scrn (Negative) Urine Cocaine Screen (Negative) U Marijuana (THC) Screen (Negative) Ethyl Alcohol ( - 10) mg/dL SARS-CoV-2 (PCR) (Negative) Urine Dip Bedside Urine Glucose Negative Bedside Urine Bilirubin - Negative Bedside Urine Ketone - Negative Urine Specific Mccarley 1.030 Bedside Urine Occult Blood - Negative Bedside Urine pH 5.5 Bedside Urine Protein ++ 100 Bedside Urine Urobilinogen - Negative Bedside Urine Nitrite - Negative Bedside Urine Leukocytes - Negative Esterase MDM Narrative Medical decision making narrative: Patient did know that she was in the emergency department. She did know what year it was. She did know her address. She is COVID positive but does not seem to be exhibiting any symptoms for this. No respiratory distress and no fevers. She does admit that she has not been taking any for medicines at least for the past couple days. She was somewhat irritable in the room during my exam. I offered her medication to help her calm or potentially even to help her sleep but she declined any of these medications. Given her COVID positive status it is unlikely that we would find a facility willing to take the patient. Plan will be is to have psychiatry come and evaluate the patient in the emergency department tomorrow. Patient is not restrained. She is able to leave the emergency department if she wishes. Care turned over to Dr. Naranjo to follow up and disposition. 04/05/21 8am kevin-patient hostile to nursing staff hitting nursing staff. She states do not touch me no one has touched her or been aggressive towards her. Patient walked out of the emergency department she was if her jacket and she was top list in the entryway the hospital. She also started taking off her pants. She did come back into the emergency department. 1 member was able to calm her she was given a be 50 to for her own safety and hours. She was put in a locked room until she fell asleep. She is greatly disabled knot in her right mind. It is very cold outside and walking around naked. 930-Dr. Umaña called notified of patient. Agrees with teeth are evaluation, he is happy to see her tomorrow if she is still in the emergency department recommends restarting her home medication. Patient sleeping, door unlcoked, sitter in place. covered in blankets. 10am- DCR notified. Patient will be walk wait because she is COVID positive but happy to evaluate when she is awake. She has been sleeping all day. Restart home meds, Psych eval in am. I have updated daughter Lakshmi at 9:38 p.m. when [id number] who also has COVID and states that she has had it take her mother home however her mother often refuses to go with her. Dr hanna: Received turned over. I am well aware of the patient as I initially evaluate the patient yesterday upon her arrival to the emergency department. I did review the events of the day. Since my arrival the patient has been sleeping. She did take her evening medications. She also has tolerated oral intake. DCR was notified earlier today however given the fact that she is COVID positive there is not going to be any facilities that are willing to take her. Patient currently is not cleared to leave the emergency department so her seclusion, unlocked door restraints have been renewed. care turned over to Dr donald to follow up and dispo. 1:20pm Dr Umaña, psychiatry, in the dept and examined the patient. He feels that she is gravely disabled. Talking with RADIATOR REPAIRER. Patient remains COVID positive, asymptomatic with normal vital signs and oxygen saturations at 97% on room air. She is medically cleared. Will ask DCR to evaluate. 4:20 DCR has called and agrees that patient is gravely diabled and would benefit for inpt psychiatric stay. However, all inpt facilites require 10 days from + covid test for admission. 04/04 was 1st positive test, 10 days would be April 14. The DCR still has 2 other facilities to call but if they are unable to facilitate a COVID positive asymptomatic patient than they will need to do a ?walk away?. 04/06 evening have discussed concerns findings and inability to place her mother with the patient's daughter. 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 04/07 1130am patient's daughter will be available shortly to pick her up and take her home. Will suggest that she continue all current medications. Assuming she remains in her continued compromised state will recommend that she return on April 14 or for reassessment and reconsideration of psychiatric admission given her grave disability due to her bipolar disorder. At this time she has a safe place to be discharged home to, continues to be gravely disabled, is not symptomatic with her positive COVID test and will be discharged home <Kendrick Gonzalez, DO - Last Filed: 04/07/21 19:50> Lab Data Labs: Lab Results 04/04/21 04/04/21 04/04/21 Range/Units 16:55 16:55 16:55 WBC 11.3 H (4.5-11.0) X10^3/uL RBC 3.89 L (4.0-5.2) X10^6/uL Hgb 12.7 (12.0-16.0) g/dL Hct 38.2 (36-46) % MCV 98.3 (80-100) fL MCH 32.7 (26-34) PG MCHC 33.2 (30-36) % RDW 15.6 H (11.6-14.8) % Plt Count 193 (150-400) X10^3/uL Neut % (Auto) 71.3 (50-75) % Lymph % (Auto) 19.4 L (25-40) % [place] % (Auto) 8.8 (3-14) % Eos % (Auto) 0.0 L (2-4) % Baso % (Auto) 0.5 (0-2) % Neut # (Auto) 8000 H (6398-3995) /uL Lymph # (Auto) 2200 (8221-5955) /uL [place] # (Auto) 1000 H (0-900) /uL Eos # (Auto) 0 (0-450) /uL Baso # (Auto) 100 (0-100) /uL Sodium 136 L (137-145) mmol/L Potassium 4.0 (3.4-5.1) mmol/L Chloride 99 (98-107) mmol/L Carbon Dioxide 23 (22-32) mmol/L BUN 60 H (7-17) mg/dL Creatinine 2.47 H (0.52-1.04) mg/dL Estimated GFR 19.4 L (>60) mL/min BUN/Creatinine Ratio 24.3 H (6-22) Glucose 150 H (80-110) mg/dL Calcium 9.3 (8.4-10.2) mg/dL Total Bilirubin 0.6 (0.2-1.3) mg/dL AST 229 H (14-36) IU/L ALT 112 H (<35) IU/L Alkaline Phosphatase 75 (38-126) U/L Total Protein 8.3 H (6.3-8.2) g/dL Albumin 4.8 (3.5-5.0) g/dL Globulin 3.5 (1.7-4.1) g/dL Albumin/Globulin Ratio 1.4 (1.0-2.8) TSH 4.94 H (0.47-4.68) uIU/mL Free T4 0.73 L (0.78-2.19) ng/dL Urine RBC (0-5/HPF) Urine WBC (0-5/HPF) Ur Squamous Epith Cells (0-5/HPF) Amorphous Sediment Urine Bacteria (None) Urine Mucus (Negative) Ur Culture Indicated? Salicylates < 1.0 (<20) mg/dL U Opiates 300ng/mL cut (Negative) Ur Oxycodone Screen (Negative) Urine Methadone Screen (Negative) Acetaminophen < 10 L (10-30) ug/mL Ur Barbiturates Screen (Negative) Total Valproic Acid (50-100) ug/mL U Tricyclic Antidepress (Negative) Ur Phencyclidine Scrn (Negative) Ur Amphetamines Screen (Negative) U Methamphetamines Scrn (Negative) Ur MDMA Scrn (Ecstasy) (Negative) U Benzodiazepines Scrn (Negative) Urine Cocaine Screen (Negative) U Marijuana (THC) Screen (Negative) Ethyl Alcohol < 10 ( - 10) mg/dL SARS-CoV-2 (PCR) (Negative) 04/04/21 04/04/21 04/04/21 Range/Units 16:55 17:04 17:45 WBC (4.5-11.0) X10^3/uL RBC (4.0-5.2) X10^6/uL Hgb (12.0-16.0) g/dL Hct (36-46) % MCV (80-100) fL MCH (26-34) PG MCHC (30-36) % RDW (11.6-14.8) % Plt Count (150-400) X10^3/uL Neut % (Auto) (50-75) % Lymph % (Auto) (25-40) % [place] % (Auto) (3-14) % Eos % (Auto) (2-4) % Baso % (Auto) (0-2) % Neut # (Auto) (3378-9334) /uL Lymph # (Auto) (2619-2005) /uL [place] # (Auto) (0-900) /uL Eos # (Auto) (0-450) /uL Baso # (Auto) (0-100) /uL Sodium (137-145) mmol/L Potassium (3.4-5.1) mmol/L Chloride (98-107) mmol/L Carbon Dioxide (22-32) mmol/L BUN (7-17) mg/dL Creatinine (0.52-1.04) mg/dL Estimated GFR (>60) mL/min BUN/Creatinine Ratio (6-22) Glucose (80-110) mg/dL Calcium (8.4-10.2) mg/dL Total Bilirubin (0.2-1.3) mg/dL AST (14-36) IU/L ALT (<35) IU/L Alkaline Phosphatase (38-126) U/L Total Protein (6.3-8.2) g/dL Albumin (3.5-5.0) g/dL Globulin (1.7-4.1) g/dL Albumin/Globulin Ratio (1.0-2.8) TSH (0.47-4.68) uIU/mL Free T4 (0.78-2.19) ng/dL Urine RBC (0-5/HPF) Urine WBC (0-5/HPF) Ur Squamous Epith Cells (0-5/HPF) Amorphous Sediment Urine Bacteria (None) Urine Mucus (Negative) Ur Culture Indicated? Salicylates (<20) mg/dL U Opiates 300ng/mL cut Negative (Negative) Ur Oxycodone Screen Negative (Negative) Urine Methadone Screen Negative (Negative) Acetaminophen (10-30) ug/mL Ur Barbiturates Screen Negative (Negative) Total Valproic Acid 32 L (50-100) ug/mL U Tricyclic Antidepress Negative (Negative) Ur Phencyclidine Scrn Negative (Negative) Ur Amphetamines Screen Negative (Negative) U Methamphetamines Scrn Negative (Negative) Ur MDMA Scrn (Ecstasy) Negative (Negative) U Benzodiazepines Scrn Negative (Negative) Urine Cocaine Screen Negative (Negative) U Marijuana (THC) Screen Negative (Negative) Ethyl Alcohol ( - 10) mg/dL SARS-CoV-2 (PCR) Positive H (Negative) 04/04/21 04/05/21 Range/Units 17:45 15:17 WBC (4.5-11.0) X10^3/uL RBC (4.0-5.2) X10^6/uL Hgb (12.0-16.0) g/dL Hct (36-46) % MCV (80-100) fL MCH (26-34) PG MCHC (30-36) % RDW (11.6-14.8) % Plt Count (150-400) X10^3/uL Neut % (Auto) (50-75) % Lymph % (Auto) (25-40) % [place] % (Auto) (3-14) % Eos % (Auto) (2-4) % Baso % (Auto) (0-2) % Neut # (Auto) (2278-9387) /uL Lymph # (Auto) (1173-1934) /uL [place] # (Auto) (0-900) /uL Eos # (Auto) (0-450) /uL Baso # (Auto) (0-100) /uL Sodium 139 (137-145) mmol/L Potassium 3.8 (3.4-5.1) mmol/L Chloride 108 H (98-107) mmol/L Carbon Dioxide 26 (22-32) mmol/L BUN 54 H (7-17) mg/dL Creatinine 1.36 H (0.52-1.04) mg/dL Estimated GFR 38.7 L (>60) mL/min BUN/Creatinine Ratio 39.7 H (6-22) Glucose 104 (80-110) mg/dL Calcium 8.1 L (8.4-10.2) mg/dL Total Bilirubin (0.2-1.3) mg/dL AST (14-36) IU/L ALT (<35) IU/L Alkaline Phosphatase (38-126) U/L Total Protein (6.3-8.2) g/dL Albumin (3.5-5.0) g/dL Globulin (1.7-4.1) g/dL Albumin/Globulin Ratio (1.0-2.8) TSH (0.47-4.68) uIU/mL Free T4 (0.78-2.19) ng/dL Urine RBC None seen (0-5/HPF) Urine WBC 1-5/hpf (0-5/HPF) Ur Squamous Epith Cells 5-10 /hpf H (0-5/HPF) Amorphous Sediment 2+ Urine Bacteria Few (2-10) H (None) Urine Mucus 2+ H (Negative) Ur Culture Indicated? Culture not indicate Salicylates (<20) mg/dL U Opiates 300ng/mL cut (Negative) Ur Oxycodone Screen (Negative) Urine Methadone Screen (Negative) Acetaminophen (10-30) ug/mL Ur Barbiturates Screen (Negative) Total Valproic Acid (50-100) ug/mL U Tricyclic Antidepress (Negative) Ur Phencyclidine Scrn (Negative) Ur Amphetamines Screen (Negative) U Methamphetamines Scrn (Negative) Ur MDMA Scrn (Ecstasy) (Negative) U Benzodiazepines Scrn (Negative) Urine Cocaine Screen (Negative) U Marijuana (THC) Screen (Negative) Ethyl Alcohol ( - 10) mg/dL SARS-CoV-2 (PCR) (Negative) Urine Dip Bedside Urine Glucose Negative Bedside Urine Bilirubin - Negative Bedside Urine Ketone - Negative Urine Specific Mccarley 1.030 Bedside Urine Occult Blood - Negative Bedside Urine pH 5.5 Bedside Urine Protein ++ 100 Bedside Urine Urobilinogen - Negative Bedside Urine Nitrite - Negative Bedside Urine Leukocytes - Negative Esterase MDM Narrative Medical decision making narrative: Patient did know that she was in the emergency department. She did know what year it was. She did know her address. She is COVID positive but does not seem to be exhibiting any symptoms for this. No respiratory distress and no fevers. She does admit that she has not been taking any for medicines at least for the past couple days. She was somewhat irritable in the room during my exam. I offered her medication to help her calm or potentially even to help her sleep but she declined any of these medications. Given her COVID positive status it is unlikely that we would find a facility willing to take the patient. Plan will be is to have psychiatry come and evaluate the patient in the emergency department tomorrow. Patient is not restrained. She is able to leave the emergency department if she wishes. Care turned over to Dr. Naranjo to follow up and disposition. 04/05/21 8am kevin-patient hostile to nursing staff hitting nursing staff. She states do not touch me no one has touched her or been aggressive towards her. Patient walked out of the emergency department she was if her jacket and she was top list in the entryway the hospital. She also started taking off her pants. She did come back into the emergency department. 1 member was able to calm her she was given a be 50 to for her own safety and hours. She was put in a locked room until she fell asleep. She is greatly disabled knot in her right mind. It is very cold outside and walking around naked. 930-Dr. Umaña called notified of patient. Agrees with teeth are evaluation, he is happy to see her tomorrow if she is still in the emergency department recommends restarting her home medication. Patient sleeping, door unlcoked, sitter in place. covered in blankets. 10am- DCR notified. Patient will be walk wait because she is COVID positive but happy to evaluate when she is awake. She has been sleeping all day. Restart home meds, Psych eval in am. I have updated daughter Lakshmi at 9:38 p.m. [place] [id number] who also has COVID and states that she has had it take her mother home however her mother often refuses to go with her. Dr hanna: Received turned over. I am well aware of the patient as I initially evaluate the patient yesterday upon her arrival to the emergency department. I did review the events of the day. Since my arrival the patient has been sleeping. She did take her evening medications. She also has tolerated oral intake. DCR was notified earlier today however given the fact that she is COVID positive there is not going to be any facilities that are willing to take her. Patient currently is not cleared to leave the emergency department so her seclusion, unlocked door restraints have been renewed. care turned over to Dr donald to follow up and dispo. 1:20pm Dr Umaña, psychiatry, in the dept and examined the patient. He feels that she is gravely disabled. Talking with RADIATOR REPAIRER. Patient remains COVID positive, asymptomatic with normal vital signs and oxygen saturations at 97% on room air. She is medically cleared. Will ask DCR to evaluate. 4:20 DCR has called and agrees that patient is gravely diabled and would benefit for inpt psychiatric stay. However, all inpt facilites require 10 days from + covid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
--- NOTE | 2021-04-04 23:00 | PC.NURSE ---
saw the patient.
[2021-04-05 04:00] LABS: Valproic Acid (Depakene) Total 32 ug/mL (50-100)
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
[2021-04-05] MEDS: HALOPERIDOL 5 MG/ML VIAL (08:15)
[2021-04-05] MEDS: LORazepam 2 MG/ML INJ (08:15)
[2021-04-05] MEDS: diphenhydrAMINE 50 MG/ML VIAL (08:15)
[2021-04-05 08:58] VITALS: BP 154/72; PULSE 141; RESP 14; O2SAT 98
[2021-04-05] MEDS: SODIUM CHLORIDE 0.9% 1,000 ML 1000 ML IV ×2 (12:05→14:00)
--- NOTE | 2021-04-05 12:08 | PC.NURSE ---
IV started. Pt tolerated well. Pt offered meal and bathroom and declined both at this time.
[2021-04-05 12:09] VITALS: BP 124/64; PULSE 86; RESP 18; O2SAT 96
[2021-04-05 14:41] VITALS: RESP 19
[2021-04-05 15:46] LABS: BUN Creatinine Ratio 39.7 (6-22); Blood Urea Nitrogen 54 mg/dL (7-17); Calcium 8.1 mg/dL (8.4-10.2); Carbon Dioxide 26 mmol/L (22-32); Chloride 108 mmol/L (98-107); Estimated Glomerular Filt Rate 38.7 mL/min (>60); Glucose 104 mg/dL (80-110); HEMOLYSIS < 15 (0-50); Potassium 3.8 mmol/L (3.4-5.1); Sodium 139 mmol/L (137-145)
[2021-04-05 16:32] VITALS: BP 139/81; PULSE 85; RESP 18; O2SAT 97
--- NOTE | 2021-04-05 16:33 | PC.NURSE ---
Offered patient a drink and bathroom, patient has declined at this time
[2021-04-05 20:35] VITALS: BP 149/67; PULSE 88; TEMP 36.3; O2SAT 96
[2021-04-05] MEDS: DIVALPROEX ER 250 MG TAB 1500 MG PO (20:56)
[2021-04-05] MEDS: QUETIAPINE 100 MG TABLET 200 MG PO (20:56)
--- NOTE | 2021-04-05 21:03 | PC.NURSE ---
Patient woke with gentle verbal stimulation, took medications with ease. Patient eating crackers and drank some pepsi
--- NOTE | 2021-04-06 01:23 | PC.NURSE ---
Patient calm, lying on bed. Follows commands. Taking medications with ease from staff. Patient able to indicate need for restroom. Provided beverage and snack. Continue to have 1:1 observation of patient to maintain safety of patient and staff.
--- NOTE | 2021-04-06 03:37 | PC.NURSE ---
patient continues to sleep. Resp even and unlabored
[2021-04-06 07:50] VITALS: BP 149/82; PULSE 96; RESP 16; TEMP 36.2; O2SAT 98
--- NOTE | 2021-04-06 07:53 | PC.NURSE ---
Started this shift at 0700. Patient has been sleeping on the mattress on the floor. Observed patient sleeping, calm and quiet.
--- NOTE | 2021-04-06 08:05 | PC.NURSE ---
Patient had an incontinent void, provided clean clothing, wet wipes for cleaning herself up, removed soiled linen, wiped down mattress, EVS cleaned the floor, put clean linen on the mattress, provided patient with warm blanket, chair and table for breakfast.
--- NOTE | 2021-04-06 08:19 | PC.NURSE ---
Patient is sitting in the chair with bedside table. Breakfast arrived.
--- NOTE | 2021-04-06 09:04 | PC.NURSE ---
It appears the pt removed her IV overnight, skin and CMS in tact.
[2021-04-06 12:00] VITALS: BP 153/86; PULSE 95; RESP 16; TEMP 36.2; O2SAT 97
--- NOTE | 2021-04-06 12:13 | PC.NURSE ---
Woke patient up at 1155 so she would be ready for lunch. Assisted the patient to stand, she walked to the bathroom and voided. She walked from the bathroom to the chair, she sat down, provided her with warm blankets. Took her vitals and provided her lunch to her.
--- NOTE | 2021-04-06 13:38 | PC.NURSE ---
I woke up the patient to inform her that a was here to see her. I provided a mask for her to wear while he was here to see her.
--- NOTE | 2021-04-06 13:49 | PC.NURSE ---
has completed his evaluation and left the room. Patient has gone back to sleep.
--- NOTE | 2021-04-06 13:53 | CM.SWNOTE ---
MICROFILM MACHINE OPERATOR Note Psychiatrist Dr. Umaña consulted with MICROFILM MACHINE OPERATOR and ED provider and met with patient. It is the opinion of Dr. Umaña that patient is gravely disabled and in need of DCR assessment. RAFA Byrd
--- NOTE | 2021-04-06 16:15 | PC.NURSE ---
I woke up patient a few minutes ago to prepare her for a DCR meeting. Assisted patient up from the bed, she walked to the bathroom, voided and then walked to the chair for her video meeting.
[2021-04-06 17:00] VITALS: BP 139/74; PULSE 87; RESP 16; TEMP 36.3; O2SAT 94
--- NOTE | 2021-04-06 19:13 | PC.NURSE ---
Called pts daughter,left a message for her to call us back
--- NOTE | 2021-04-06 19:37 | CM.SWNOTE ---
ELEMENTARY EDUCATION TEACHER Note ELEMENTARY EDUCATION TEACHER dispatches DCR, DCR Leandra is assigned and assesses patient as gravely disabled. Patient is a walk away as patient cannot be at inpatient facility as a covid + patient or there was a lack of beds. It was reported that inpatient could take patient 10 days after first covid + result, with a negative test. DCR reports she called patient's daughter and left VM. ELEMENTARY EDUCATION TEACHER receives message from previous DCR Alvina that patient's daughter has concern for patient's medications impacting her kidneys and interest in patient getting into a [facility]. ELEMENTARY EDUCATION TEACHER calls patient's daughter Lynne (Ph. # [phone]). Daughter reports that she has had covid for 7+ days and tested positive today. Daughter endorses that she can stay with patient at patient's home if patient is deemed stable for d/c from ED. ELEMENTARY EDUCATION TEACHER reviews the above with nurse discharge and ED provider Dr. Gonzalez. Patient will be reassessed by ED provider and DCP/ELEMENTARY EDUCATION TEACHER tomorrow and patient's daughter will be contacted further. ELEMENTARY EDUCATION TEACHER provides update to patient's psychiatrist via email. Plan: ED provider and ELEMENTARY EDUCATION TEACHER/DCP to assess patient's appropriateness for d/c to home with daughter and safety plan in place. RAFA Byrd
--- NOTE | 2021-04-06 21:40 | PC.NURSE ---
Bathroom offered but patient refused needing the bathroom at this time
[2021-04-06] MEDS: DIVALPROEX ER 250 MG TAB 1500 MG PO (21:52)
[2021-04-06] MEDS: QUETIAPINE 100 MG TABLET 200 MG PO (21:52)
--- NOTE | 2021-04-07 09:48 | PC.NURSE ---
Called pts daughter,left a message for her to call us back
--- NOTE | 2021-04-07 09:52 | PC.NURSE ---
Pts daughter returned call,she said she will be here eventually in a couple of hours.
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
[2021-04-07 11:20] VITALS: BP 130/74; PULSE 84; RESP 16; TEMP 36.6; O2SAT 98
== END 2021-04-07 11:35 | disposition home or self-care (01) ==
PROVIDERS: Emergency Medicine; Emergency Provider Emergency Medicine; Family Provider Family Medicine; PCP Family Medicine
DX: F30.8 Other manic episodes (principal); F29 Unspecified psychosis not due to a substance or known physiological condition; U07.1 COVID-19
CPT/HCPCS: 36415; 80048; 80053; 80164; 80305; 80320; 80329; 81003; 81015; 84439; 84443; 85025; 87086; 87635; 96360; 96361; 99283; 99285; C9803; G0480; J1200; J1630; J2060

== ENCOUNTER 2021-04-24 01:51 | Emergency (ER) | payer MEDICARE, SELFPAY ==
[2020-05-13 23:23] VITALS: BMI 43.2
[2021-04-24] VITALS (15 sets, daily range): BP systolic 130–178; BP diastolic 60–130; PULSE 78–110; RESP 16–20; TEMP 37; O2SAT 87–98; BMI 37.2
--- NOTE | 2021-04-24 01:58 | ED_ITS ---
HPI - Psych <Kendrick Gonzalez DO - Last Filed: 04/27/21 08:32> General Chief Complaint: Psychiatric Symptoms Stated Complaint: hallucinations Time Seen by Provider: 04/24/21 01:57 History of Present Illness HPI Narrative: 71-year-old female nonsmoker with history of diabetes, psychotic behavior with olivia, TIA presents by EMS for evaluation with they refer to as a psychotic break and increased presence of visual and auditory hallucinations. She has frequent recent visits for what appears to be difficult to control hallucinations. She had recently been switched to Geodon but has been unable to access this medication for an unknown reason for the past few days. She denies any suicidal or homicidal ideation. She states she has had no other changes in her medications or diet. She denies any runny nose, sore throat or cough. She has had no chest pain or shortness of breath. She denies any nausea, vomiting or diarrhea. She is here voluntarily hoping to become hospitalized for stabilization of her condition and a re-evaluation of her medications. She was last here on April 04 under relatively similar circumstances and attempts were made to find placement, however she had a positive COVID test at that time and after extensive work all facilities denied her on the basis of her COVID. Related Data Home Medications Medication Instructions Recorded Confirmed multivitamin 1 tab PO DAILY 04/30/20 03/28/21 zolpidem 5 mg tablet (Ambien) 5 mg PO BEDTIME 03/28/21 04/24/21 Previous Rx's Medication Instructions Recorded indomethacin 25 mg capsule See Rx Instructions PO TID PRN #40 06/23/19 cap aspirin 81 mg tablet,delayed 81 mg PO DAILY #30 tab 05/14/20 release allopurinol 300 mg tablet See Rx Instructions .ROUTE 11/19/20 .COMPLEX #90 tab metformin 500 mg tablet See Rx Instructions .ROUTE 11/19/20 .COMPLEX #360 tab levothyroxine 150 mcg tablet See Rx Instructions .ROUTE 01/25/21 .COMPLEX #90 tab atorvastatin 40 mg tablet See Rx Instructions .ROUTE 02/03/21 .COMPLEX #90 tab lisinopril 10 mg tablet See Rx Instructions .ROUTE 02/03/21 .COMPLEX #90 tab divalproex 500 mg tablet,extended 1,500 mg PO BEDTIME #90 tab 02/08/21 release 24 hr quetiapine 100 mg tablet 200 mg PO BEDTIME #60 tab 03/28/21 ziprasidone HCl 40 mg capsule 40 mg PO BID #60 cap 03/28/21 divalproex 500 mg tablet,extended 1,500 mg PO .HS #90 tab 04/07/21 release 24 hr (Depakote ER) quetiapine 100 mg tablet (Seroquel) 200 mg PO BEDTIME #60 tab 04/07/21 ziprasidone HCl 40 mg capsule 40 mg PO BID #60 cap 04/07/21 zolpidem 5 mg tablet (Ambien) 5 mg PO BEDTIME PRN #20 tab 04/07/21 Allergies Allergy/AdvReac Type Severity Reaction Status Date / Time Sulfa (Sulfonamide Allergy Mild RASH Verified 04/25/21 15:40 Antibiotics) haloperidol [HALOPERIDOL] Allergy Unknown Verified 04/25/21 15:40 lithium [LITHIUM] Allergy Unknown Verified 04/25/21 15:40 risperidone [RISPERIDONE] Allergy Unknown Verified 04/25/21 15:40 perphenazine AdvReac uncontrolled Verified 04/25/21 15:40 hand shaking Review of Systems <Kendrick Gonzalez DO - Last Filed: 04/27/21 08:32> Review of Systems Narrative: GENERAL: Denies chills, fatigue, malaise, fever, sweats. HEENT: Denies sinus pain, ear pain, sore throat, difficulty swallowing, dizziness. RESPIRATORY: Denies dyspnea, cough, wheezing, hemoptysis, sputum. CARDIOVASCULAR: Denies chest pain, palpitations, orthopnea, edema, GASTROINTESTINAL: Denies nausea, vomiting, abdominal pain, diarrhea, co nstipation, melena. : Denies dysuria, frequency, incontinence, hematuria, urinary retention. MUSCULOSKELETAL: denies weakness, joint pain, or bony pain SKIN: Denies rash, skin lesions, or other NEUROLOGIC: Denies weakness, headache, numbness, change in speech, confusion, seizures, incoordination. PSYCHIATRIC: See HPI 12 point review of systems is negative except for those stated above Patient History <Kendrick Gonzalez DO - Last Filed: 04/27/21 08:32> Medical History Ankle pain (2007) Anxiety (1994) Bipolar 1 disorder, depressed, partial remission Bipolar 1 disorder, mixed, full remission Bipolar disorder (1989) Bipolar I disorder, most recent episode depressed, severe without psychotic features Cataract (2011) Chicken pox CTS (carpal tunnel syndrome) (1987) Depression (1962) DM type 2 (diabetes mellitus, type 2) Foot pain (~2002) Fractures (2007) Hayfever (~1989) Hyperlipidemia Hypertension Hypothyroidism Measles Peripheral neuropathy (2013) RLS (restless legs syndrome) (1999) Sleep apnea (08/2015) Urinary incontinence Surgical History Anesthesia complication History of carpal tunnel repair (~1997) History of surgery (04/2008) Family History Child Age: 49 Arthritis Mother Heart disease Family history of fraternal twins Family history of identical twins Levin gestation with first Social History marital status: number of children: 2 household members: none lives independently: Yes caregiver/support person: No housing: house pets and animals: No education level: high school occupational status: unemployed leisure activities: reading and volunteer work other: walk,garden,visit friends,sikhism,word puzzles seatbelt use: always water heater temp set < 120 deg: Yes working smoke detector in home: Yes fire extinguisher in home: Yes carbon monox detector in home: Yes Smoking Status: Never smoker second hand exposure: No alcohol intake: current substance use type: does not use during the past year weight has: other well-balanced diet: rarely or never daily servings fruits/ve-1 caffeine: Yes eating out: 1-3 times/week frequency: 3-4 times per week duration: 15-30 minutes/day Smoking Status: Never smoker alcohol intake frequency: holidays/special occasions only Substance Use Type: does not use Exam <Kendrick Gonzalez DO - Last Filed: 04/27/21 08:32> Narrative Exam Narrative: GENERAL: [71 year old patient appears stated age. Well-developed patient, in mild distress. Pleasant, slow, purposeful speech is at her baseline HEAD: Atraumatic. Normocephalic. EYES: Pupils equal round and reactive. Extraocular motions intact. No scleral icterus. No injection or drainage. ENT: Nose without bleeding, purulent drainage. Throat without erythema, tonsillar hypertrophy or exudate. Airway patent. NECK: Trachea midline. Non tender CARDIOVASCULAR: Regular rate and rhythm without murmurs, gallops, or rubs. RESPIRATORY: Clear to auscultation. Breath sounds equal bilaterally. No wheezes, rales, or rhonchi. GASTROINTESTINAL: Abdomen soft, non-tender, nondistended. EXTREMITIES: No edema or joint tenderness. BACK: Nontender without deformity or crepitance. No flank tenderness. NEURO: AOx3. SKIN: No rash or erythema of visible areas Initial Vital Signs Initial Vital Signs: Vital Signs Temperature 98.6 F 04/24/21 01:50 Pulse Rate 110 H 04/24/21 01:50 Respiratory Rate 18 04/24/21 01:50 Blood Pressure 163/72 H 04/24/21 01:50 Pulse Oximetry 97 04/24/21 01:50 <Rosa Isela Floyd, DO - Last Filed: 04/26/21 19:16> Initial Vital Signs Initial Vital Signs: Vital Signs Temperature 98.6 F 04/24/21 01:50 Pulse Rate 110 H 04/24/21 01:50 Respiratory Rate 18 04/24/21 01:50 Blood Pressure 163/72 H 04/24/21 01:50 Pulse Oximetry 97 04/24/21 01:50 <Leeann Naranjo DO - Last Filed: 04/26/21 22:08> Initial Vital Signs Initial Vital Signs: Vital Signs Temperature 98.6 F 04/24/21 01:50 Pulse Rate 110 H 04/24/21 01:50 Respiratory Rate 18 04/24/21 01:50 Blood Pressure 163/72 H 04/24/21 01:50 Pulse Oximetry 97 04/24/21 01:50 Course <Kendrick Gonzalez DO - Last Filed: 04/27/21 08:32> Orders Ordered: Discontinued Medications Allopurinol (Allopurinol 300 Mg Tablet) 300 mg PO NOW ONE Stop: 04/26/21 08:43 Last Admin: 04/26/21 08:55 Dose: 300 mg Documented by: JASMIN Aspirin (Aspirin Ec 81 Mg Tablet) 81 mg PO DAILY [facility] Last Admin: 04/26/21 08:38 Dose: 81 mg Documented by: Admin: 04/25/21 08:59 Dose: 81 mg Documented by: Admin: 04/24/21 14:08 Dose: 81 mg Documented by: RAY Benzocaine (Benzocaine/Menthol 1 Evelyn Pkt) 1 each PO NOW ONE Stop: 04/24/21 13:28 Last Admin: 04/24/21 14:08 Dose: 1 each Documented by: RAY Benzocaine (Benzocaine/Menthol 1 Evelyn Pkt) 1 each PO NOW ONE Stop: 04/25/21 00:15 Last Admin: 04/25/21 00:20 Dose: 1 each Documented by: RUPERTO Divalproex Sodium (Divalproex Er 250 Mg Tab) 1,500 mg PO DAILY [facility] Last Admin: 04/25/21 09:08 Dose: Not Given Documented by: Admin: 04/24/21 14:09 Dose: 1,500 mg Documented by: RAY Divalproex Sodium (Divalproex Er 250 Mg Tab) 1,500 mg PO BEDTIME [facility] Last Admin: 04/25/21 21:10 Dose: 1,500 mg Documented by: IRWIN Levothyroxine Sodium (Levothyroxine 150 Mcg Tablet) 150 mcg PO DAILY@0600 [facility] Last Admin: 04/26/21 06:24 Dose: 150 mcg Documented by: Admin: 04/25/21 06:40 Dose: 150 mcg Documented by: RUPERTO Lisinopril (Lisinopril 10 Mg Tablet) 10 mg PO DAILY [facility] Last Admin: 04/26/21 08:35 Dose: 10 mg Documented by: Admin: 04/25/21 08:59 Dose: 10 mg Documented by: Admin: 04/24/21 14:08 Dose: 10 mg Documented by: RAY Olanzapine (Olanzapine Odt 10 Mg Tab) 10 mg PO NOW ONE Stop: 04/25/21 00:13 Last Admin: 04/25/21 00:20 Dose: 10 mg Documented by: RUPERTO Quetiapine Fumarate (Quetiapine 100 Mg Tablet) 200 mg PO BEDTIME [facility] Last Admin: 04/25/21 21:10 Dose: 200 mg Documented by: Admin: 04/24/21 21:35 Dose: 200 mg Documented by: NAKIA Quetiapine Fumarate (Quetiapine 25 Mg Tablet) 25 mg PO NOW ONE Stop: 04/24/21 13:33 Last Admin: 04/24/21 14:14 Dose: 25 mg Documented by: RAY Quetiapine Fumarate (Quetiapine 25 Mg Tablet) 25 mg PO NOW ONE Stop: 04/25/21 17:15 Last Admin: 04/25/21 17:40 Dose: 25 mg Documented by: JASMIN Vital Signs Vital signs: Vital Signs - 8 hr 04/26/21 18:13 Temperature 97.8 F Pulse Rate 108 H Respiratory Rate 18 Blood Pressure 148/99 H Pulse Oximetry 97 <Rosa Isela Floyd DO - Last Filed: 04/26/21 19:16> Orders Ordered: Discontinued Medications Allopurinol (Allopurinol 300 Mg Tablet) 300 mg PO NOW ONE Stop: 04/26/21 08:43 Last Admin: 04/26/21 08:55 Dose: 300 mg Documented by: JASMIN Aspirin (Aspirin Ec 81 Mg Tablet) 81 mg PO DAILY [facility] Last Admin: 04/26/21 08:38 Dose: 81 mg Documented by: Admin: 04/25/21 08:59 Dose: 81 mg Documented by: Admin: 04/24/21 14:08 Dose: 81 mg Documented by: RAY Benzocaine (Benzocaine/Menthol 1 Evelyn Pkt) 1 each PO NOW ONE Stop: 04/24/21 13:28 Last Admin: 04/24/21 14:08 Dose: 1 each Documented by: RAY Benzocaine (Benzocaine/Menthol 1 Evelyn Pkt) 1 each PO NOW ONE Stop: 04/25/21 00:15 Last Admin: 04/25/21 00:20 Dose: 1 each Documented by: RUPERTO Divalproex Sodium (Divalproex Er 250 Mg Tab) 1,500 mg PO DAILY [facility] Last Admin: 04/25/21 09:08 Dose: Not Given Documented by: Admin: 04/24/21 14:09 Dose: 1,500 mg Documented by: RAY Divalproex Sodium (Divalproex Er 250 Mg Tab) 1,500 mg PO BEDTIME [facility] Last Admin: 04/25/21 21:10 Dose: 1,500 mg Documented by: IRWIN Levothyroxine Sodium (Levothyroxine 150 Mcg Tablet) 150 mcg PO DAILY@0600 [facility] Last Admin: 04/26/21 06:24 Dose: 150 mcg Documented by: Admin: 04/25/21 06:40 Dose: 150 mcg Documented by: RUPERTO Lisinopril (Lisinopril 10 Mg Tablet) 10 mg PO DAILY [facility] Last Admin: 04/26/21 08:35 Dose: 10 mg Documented by: Admin: 04/25/21 08:59 Dose: 10 mg Documented by: Admin: 04/24/21 14:08 Dose: 10 mg Documented by: RAY Olanzapine (Olanzapine Odt 10 Mg Tab) 10 mg PO NOW ONE Stop: 04/25/21 00:13 Last Admin: 04/25/21 00:20 Dose: 10 mg Documented by: RUPERTO Quetiapine Fumarate (Quetiapine 100 Mg Tablet) 200 mg PO BEDTIME [facility] Last Admin: 04/25/21 21:10 Dose: 200 mg Documented by: Admin: 04/24/21 21:35 Dose: 200 mg Documented by: NAKIA Quetiapine Fumarate (Quetiapine 25 Mg Tablet) 25 mg PO NOW ONE Stop: 04/24/21 13:33 Last Admin: 04/24/21 14:14 Dose: 25 mg Documented by: RAY Quetiapine Fumarate (Quetiapine 25 Mg Tablet) 25 mg PO NOW ONE Stop: 04/25/21 17:15 Last Admin: 04/25/21 17:40 Dose: 25 mg Documented by: JASMIN Reevaluation(s) Reevaluation #1: Patient signed out to myself by Dr. Gonzalez. Seen and independently evaluated by myself. Patient does you had breakfast. She is sitting on the edge of the bed fully dressed. She asked when she is going to the mental health unit. She does continue to be voluntary. She only expresses that she prefers not to go to [facility]. Patient does not have other questions or concerns at this time. We discussed that our goal is still placement but that there are no beds available at this moment. Patient's daily medications had not been restarted. Julio is not available at our facility but did write for patient's daily medications exception of her metformin. We did do an additional single dose of Seroquel in place of her Geodon today. Time: 08:32 Vital Signs Vital signs: Vital Signs - 8 hr 04/26/21 18:13 Temperature 97.8 F Pulse Rate 108 H Respiratory Rate 18 Blood Pressure 148/99 H Pulse Oximetry 97 <Leeann Naranjo DO - Last Filed: 04/26/21 22:08> Orders Ordered: Discontinued Medications Allopurinol (Allopurinol 300 Mg Tablet) 300 mg PO NOW ONE Stop: 04/26/21 08:43 Last Admin: 04/26/21 08:55 Dose: 300 mg Documented by: JASMIN Aspirin (Aspirin Ec 81 Mg Tablet) 81 mg PO DAILY [facility] Last Admin: 04/26/21 08:38 Dose: 81 mg Documented by: Admin: 04/25/21 08:59 Dose: 81 mg Documented by: Admin: 04/24/21 14:08 Dose: 81 mg Documented by: RAY Benzocaine (Benzocaine/Menthol 1 Evelyn Pkt) 1 each PO NOW ONE Stop: 04/24/21 13:28 Last Admin: 04/24/21 14:08 Dose: 1 each Documented by: RAY Benzocaine (Benzocaine/Menthol 1 Evelyn Pkt) 1 each PO NOW ONE Stop: 04/25/21 00:15 Last Admin: 04/25/21 00:20 Dose: 1 each Documented by: RUPERTO Divalproex Sodium (Divalproex Er 250 Mg Tab) 1,500 mg PO DAILY [facility] Last Admin: 04/25/21 09:08 Dose: Not Given Documented by: Admin: 04/24/21 14:09 Dose: 1,500 mg Documented by: RAY Divalproex Sodium (Divalproex Er 250 Mg Tab) 1,500 mg PO BEDTIME [facility] Last Admin: 04/25/21 21:10 Dose: 1,500 mg Documented by: IRWIN Levothyroxine Sodium (Levothyroxine 150 Mcg Tablet) 150 mcg PO DAILY@0600 [facility] Last Admin: 04/26/21 06:24 Dose: 150 mcg Documented by: Admin: 04/25/21 06:40 Dose: 150 mcg Documented by: RUPERTO Lisinopril (Lisinopril 10 Mg Tablet) 10 mg PO DAILY [facility] Last Admin: 04/26/21 08:35 Dose: 10 mg Documented by: Admin: 04/25/21 08:59 Dose: 10 mg Documented by: Admin: 04/24/21 14:08 Dose: 10 mg Documented by: RAY Olanzapine (Olanzapine Odt 10 Mg Tab) 10 mg PO NOW ONE Stop: 04/25/21 00:13 Last Admin: 04/25/21 00:20 Dose: 10 mg Documented by: RUPERTO Quetiapine Fumarate (Quetiapine 100 Mg Tablet) 200 mg PO BEDTIME [facility] Last Admin: 04/25/21 21:10 Dose: 200 mg Documented by: Admin: 04/24/21 21:35 Dose: 200 mg Documented by: NAKIA Quetiapine Fumarate (Quetiapine 25 Mg Tablet) 25 mg PO NOW ONE Stop: 04/24/21 13:33 Last Admin: 04/24/21 14:14 Dose: 25 mg Documented by: RAY Quetiapine Fumarate (Quetiapine 25 Mg Tablet) 25 mg PO NOW ONE Stop: 04/25/21 17:15 Last Admin: 04/25/21 17:40 Dose: 25 mg Documented by: JASMIN Vital Signs Vital signs: Vital Signs - 8 hr 04/26/21 18:13 Temperature 97.8 F Pulse Rate 108 H Respiratory Rate 18 Blood Pressure 148/99 H Pulse Oximetry 97 MDM - Psych <Kendrick Gonzalez DO - Last Filed: 04/27/21 08:32> Lab Data Result diagrams: 04/25/21 12:25 04/25/21 12:25 Labs: Lab Results 04/24/21 04/24/21 04/24/21 Range/Units 01:48 02:53 02:53 WBC 7.1 (4.5-11.0) X10^3/uL RBC 3.10 L (4.0-5.2) X10^6/uL Hgb 10.3 L (12.0-16.0) g/dL Hct 30.5 L (36-46) % MCV 98.3 (80-100) fL MCH 33.3 (26-34) PG MCHC 33.9 (30-36) % RDW 14.3 (11.6-14.8) % Plt Count 154 (150-400) X10^3/uL Neut % (Auto) 34.0 L (50-75) % Lymph % (Auto) 53.4 H (25-40) % [place] % (Auto) 8.6 (3-14) % Eos % (Auto) 2.8 (2-4) % Baso % (Auto) 1.2 (0-2) % Neut # (Auto) 2400 (3877-9677) /uL Lymph # (Auto) 3800 (7034-2395) /uL [place] # (Auto) 600 (0-900) /uL Eos # (Auto) 200 (0-450) /uL Baso # (Auto) 100 (0-100) /uL Sodium 139 (137-145) mmol/L Potassium 4.5 (3.4-5.1) mmol/L Chloride 105 (98-107) mmol/L Carbon Dioxide 27 (22-32) mmol/L BUN 33 H (7-17) mg/dL Creatinine 1.07 H (0.52-1.04) mg/dL Estimated GFR 50.8 L (>60) mL/min BUN/Creatinine Ratio 30.8 H (6-22) Glucose 128 H (80-110) mg/dL Calcium 9.5 (8.4-10.2) mg/dL Total Bilirubin 0.3 (0.2-1.3) mg/dL AST 21 (14-36) IU/L ALT 16 (<35) IU/L Alkaline Phosphatase 62 (38-126) U/L Total Protein 6.6 (6.3-8.2) g/dL Albumin 3.8 (3.5-5.0) g/dL Globulin 2.8 (1.7-4.1) g/dL Albumin/Globulin Ratio 1.4 (1.0-2.8) U Opiates 300ng/mL cut (Negative) Ur Oxycodone Screen (Negative) Urine Methadone Screen (Negative) Ur Barbiturates Screen (Negative) U Tricyclic Antidepress (Negative) Ur Phencyclidine Scrn (Negative) Ur Amphetamines Screen (Negative) U Methamphetamines Scrn (Negative) Ur MDMA Scrn (Ecstasy) (Negative) U Benzodiazepines Scrn (Negative) Urine Cocaine Screen (Negative) U Marijuana (THC) Screen (Negative) Ethyl Alcohol < 10 ( - 10) mg/dL SARS-CoV-2 (PCR) Negative (Negative) 04/24/21 04/25/21 04/25/21 Range/Units 03:00 12:25 12:25 WBC 10.6 (4.5-11.0) X10^3/uL RBC 3.81 L (4.0-5.2) X10^6/uL Hgb 12.6 (12.0-16.0) g/dL Hct 37.3 (36-46) % MCV 97.7 (80-100) fL MCH 33.0 (26-34) PG MCHC 33.8 (30-36) % RDW 14.3 (11.6-14.8) % Plt Count 170 (150-400) X10^3/uL Neut % (Auto) 55.8 D (50-75) % Lymph % (Auto) 33.3 D (25-40) % [place] % (Auto) 7.8 (3-14) % Eos % (Auto) 1.9 L (2-4) % Baso % (Auto) 1.2 (0-2) % Neut # (Auto) 5900 (2637-4853) /uL Lymph # (Auto) 3500 (3228-7641) /uL [place] # (Auto) 800 (0-900) /uL Eos # (Auto) 200 (0-450) /uL Baso # (Auto) 100 (0-100) /uL Sodium 137 (137-145) mmol/L Potassium 4.8 (3.4-5.1) mmol/L Chloride 103 (98-107) mmol/L Carbon Dioxide 26 (22-32) mmol/L BUN 24 H (7-17) mg/dL Creatinine 0.99 (0.52-1.04) mg/dL Estimated GFR 55.6 L (>60) mL/min BUN/Creatinine Ratio 24.2 H (6-22) Glucose 130 H (80-110) mg/dL Calcium 10.7 H (8.4-10.2) mg/dL Total Bilirubin (0.2-1.3) mg/dL AST (14-36) IU/L ALT (<35) IU/L Alkaline Phosphatase (38-126) U/L Total Protein (6.3-8.2) g/dL Albumin (3.5-5.0) g/dL Globulin (1.7-4.1) g/dL Albumin/Globulin Ratio (1.0-2.8) U Opiates 300ng/mL cut Negative (Negative) Ur Oxycodone Screen Negative (Negative) Urine Methadone Screen Negative (Negative) Ur Barbiturates Screen Negative (Negative) U Tricyclic Antidepress Positive H (Negative) Ur Phencyclidine Scrn Negative (Negative) Ur Amphetamines Screen Negative (Negative) U Methamphetamines Scrn Negative (Negative) Ur MDMA Scrn (Ecstasy) Negative (Negative) U Benzodiazepines Scrn Negative (Negative) Urine Cocaine Screen Negative (Negative) U Marijuana (THC) Screen Negative (Negative) Ethyl Alcohol ( - 10) mg/dL SARS-CoV-2 (PCR) (Negative) Urine Dip Bedside Urine Glucose Negative Bedside Urine Bilirubin - Negative Bedside Urine Ketone - Negative Urine Specific [place] 1.02 Bedside Urine Occult Blood - Negative Bedside Urine pH 6 Bedside Urine Protein - Negative Bedside Urine Urobilinogen - Negative Bedside Urine Nitrite - Negative Bedside Urine Leukocytes - Negative Esterase <Rosa Isela Floyd, DO - Last Filed: 04/26/21 19:16> Lab Data Labs: Lab Results 04/24/21 04/24/21 04/24/21 Range/Units 01:48 02:53 02:53 WBC 7.1 (4.5-11.0) X10^3/uL RBC 3.10 L (4.0-5.2) X10^6/uL Hgb 10.3 L (12.0-16.0) g/dL Hct 30.5 L (36-46) % MCV 98.3 (80-100) fL MCH 33.3 (26-34) PG MCHC 33.9 (30-36) % RDW 14.3 (11.6-14.8) % Plt Count 154 (150-400) X10^3/uL Neut % (Auto) 34.0 L (50-75) % Lymph % (Auto) 53.4 H (25-40) % [place] % (Auto) 8.6 (3-14) % Eos % (Auto) 2.8 (2-4) % Baso % (Auto) 1.2 (0-2) % Neut # (Auto) 2400 (2440-1257) /uL Lymph # (Auto) 3800 (6625-3849) /uL [place] # (Auto) 600 (0-900) /uL Eos # (Auto) 200 (0-450) /uL Baso # (Auto) 100 (0-100) /uL Sodium 139 (137-145) mmol/L Potassium 4.5 (3.4-5.1) mmol/L Chloride 105 (98-107) mmol/L Carbon Dioxide 27 (22-32) mmol/L BUN 33 H (7-17) mg/dL Creatinine 1.07 H (0.52-1.04) mg/dL Estimated GFR 50.8 L (>60) mL/min BUN/Creatinine Ratio 30.8 H (6-22) Glucose 128 H (80-110) mg/dL Calcium 9.5 (8.4-10.2) mg/dL Total Bilirubin 0.3 (0.2-1.3) mg/dL AST 21 (14-36) IU/L ALT 16 (<35) IU/L Alkaline Phosphatase 62 (38-126) U/L Total Protein 6.6 (6.3-8.2) g/dL Albumin 3.8 (3.5-5.0) g/dL Globulin 2.8 (1.7-4.1) g/dL Albumin/Globulin Ratio 1.4 (1.0-2.8) U Opiates 300ng/mL cut (Negative) Ur Oxycodone Screen (Negative) Urine Methadone Screen (Negative) Ur Barbiturates Screen (Negative) U Tricyclic Antidepress (Negative) Ur Phencyclidine Scrn (Negative) Ur Amphetamines Screen (Negative) U Methamphetamines Scrn (Negative) Ur MDMA Scrn (Ecstasy) (Negative) U Benzodiazepines Scrn (Negative) Urine Cocaine Screen (Negative) U Marijuana (THC) Screen (Negative) Ethyl Alcohol < 10 ( - 10) mg/dL SARS-CoV-2 (PCR) Negative (Negative) 04/24/21 04/25/21 04/25/21 Range/Units 03:00 12:25 12:25 WBC 10.6 (4.5-11.0) X10^3/uL RBC 3.81 L (4.0-5.2) X10^6/uL Hgb 12.6 (12.0-16.0) g/dL Hct 37.3 (36-46) % MCV 97.7 (80-100) fL MCH 33.0 (26-34) PG MCHC 33.8 (30-36) % RDW 14.3 (11.6-14.8) % Plt Count 170 (150-400) X10^3/uL Neut % (Auto) 55.8 D (50-75) % Lymph % (Auto) 33.3 D (25-40) % [place] % (Auto) 7.8 (3-14) % Eos % (Auto) 1.9 L (2-4) % Baso % (Auto) 1.2 (0-2) % Neut # (Auto) 5900 (8531-8752) /uL Lymph # (Auto) 3500 (1303-9723) /uL [place] # (Auto) 800 (0-900) /uL Eos # (Auto) 200 (0-450) /uL Baso # (Auto) 100 (0-100) /uL Sodium 137 (137-145) mmol/L Potassium 4.8 (3.4-5.1) mmol/L Chloride 103 (98-107) mmol/L Carbon Dioxide 26 (22-32) mmol/L BUN 24 H (7-17) mg/dL Creatinine 0.99 (0.52-1.04) mg/dL Estimated GFR 55.6 L (>60) mL/min BUN/Creatinine Ratio 24.2 H (6-22) Glucose 130 H (80-110) mg/dL Calcium 10.7 H (8.4-10.2) mg/dL Total Bilirubin (0.2-1.3) mg/dL AST (14-36) IU/L ALT (<35) IU/L Alkaline Phosphatase (38-126) U/L Total Protein (6.3-8.2) g/dL Albumin (3.5-5.0) g/dL Globulin (1.7-4.1) g/dL Albumin/Globulin Ratio (1.0-2.8) U Opiates 300ng/mL cut Negative (Negative) Ur Oxycodone Screen Negative (Negative) Urine Methadone Screen Negative (Negative) Ur Barbiturates Screen Negative (Negative) U Tricyclic Antidepress Positive H (Negative) Ur Phencyclidine Scrn Negative (Negative) Ur Amphetamines Screen Negative (Negative) U Methamphetamines Scrn Negative (Negative) Ur MDMA Scrn (Ecstasy) Negative (Negative) U Benzodiazepines Scrn Negative (Negative) Urine Cocaine Screen Negative (Negative) U Marijuana (THC) Screen Negative (Negative) Ethyl Alcohol ( - 10) mg/dL SARS-CoV-2 (PCR) (Negative) Urine Dip Bedside Urine Glucose Negative Bedside Urine Bilirubin - Negative Bedside Urine Ketone - Negative Urine Specific [place] 1.02 Bedside Urine Occult Blood - Negative Bedside Urine pH 6 Bedside Urine Protein - Negative Bedside Urine Urobilinogen - Negative Bedside Urine Nitrite - Negative Bedside Urine Leukocytes - Negative Esterase Imaging Data CT scan - head: Radiologist's Impression: [address] [address] [address] Scan Report Signed Patient: Madhav Coats V MR#: [id number] : 1950 Acct:[id number] Age/Sex: 71 / F Date of Service: 04/26/21 Loc: ED Accession Number: [id number] ?? Procedure: CT head/brain wo con Ordering Provider: Rosa Isela Floyd D.O. PROCEDURE:? CT HEAD/BRAIN WO CON ? INDICATIONS:? worsening psych hx over time. ? TECHNIQUE:? Noncontrast 4.5 mm thick angled axial sections acquired from the foramen magnum to the vertex, with coronal and sagittal reformats.? For radiation dose reduction, the following was used:? automated exposure control, adjustment of mA and/or kV according to patient size.? ? COMPARISON:? MRI brain 12/17/2020; CT head 01/04/2021 ? FINDINGS:? Image quality:? Excellent.? ? CSF spaces:? Basal cisterns are patent.? No extra-axial fluid collections.? Ventricles are normal in size and shape.? ? Brain:? No midline shift.? No intracranial masses or hemorrhage.? Valverde-white matter interface is normal.? ? Skull and face:? Calvarium and visualized facial bones are intact, without suspicious lesions.? ? Sinuses:? Visualized sinuses and mastoids are clear.? ? IMPRESSION:? No acute intracranial finding. ? ? Dictated by: Mike Guy M.D. on 04/26/2021 at 14:59 ? ? Approved by: Mike Guy M.D. on 04/26/2021 at 15:00?? MDM Narrative Medical decision making narrative: 04/24/20 (Mariel) This is a 71-year-old female who is here for hallucinations. Patient has bipolar history has had prior psychosis. We are currently searching for placement patient is voluntarily requesting placement and expressed this to myself as well today. We did restart some of her home daily medications she has been off them for several days prior to arrival. Patient has been cooperative and calm throughout her stay in the department during my shift. 04/25/20 (Rezaeran). Patient signed out to myself by Dr. Gonzalez. Currently seeking voluntary placement. Patient has been agreeable throughout the day. We do not have her Geodon available should we did additional dose of Seroquel today. 04/26/20 (Mariel). Patient signed out to myself by Dr. Naranjo. We have been seeking voluntary placement but have not been able to find this. There was discussion about discharge home yesterday but the local pharmacy was not open and we could not refill patient's Geodon. She does see Dr. Storey who was contacted and may be able to see her at noon today in the ED. patient has continued to be cooperative here in the department. Dr. Storey saw her actual ly recommends possible eye TA as patient is clearly gravely disabled and has any be made 24 hours out from her discharge from psychiatric facilities. [facility] was contacted. They asked for head CT his daughter noted that patient sort of had a decline over the past year. Based on her advanced age this was included and is negative the patient continues to be medically cleared. Patient was deemed involuntary by Alvina from [facility]. [facility] accepts patient under Dr. Ramachandran with plan for transfer this evening. <Leeann Naranjo, DO - Last Filed: 04/26/21 22:08> Lab Data Labs: Lab Results 04/24/21 04/24/21 04/24/21 Range/Units 01:48 02:53 02:53 WBC 7.1 (4.5-11.0) X10^3/uL RBC 3.10 L (4.0-5.2) X10^6/uL Hgb 10.3 L (12.0-16.0) g/dL Hct 30.5 L (36-46) % MCV 98.3 (80-100) fL MCH 33.3 (26-34) PG MCHC 33.9 (30-36) % RDW 14.3 (11.6-14.8) % Plt Count 154 (150-400) X10^3/uL Neut % (Auto) 34.0 L (50-75) % Lymph % (Auto) 53.4 H (25-40) % Houghton % (Auto) 8.6 (3-14) % Eos % (Auto) 2.8 (2-4) % Baso % (Auto) 1.2 (0-2) % Neut # (Auto) 2400 (2735-7290) /uL Lymph # (Auto) 3800 (5321-1709) /uL Houghton # (Auto) 600 (0-900) /uL Eos # (Auto) 200 (0-450) /uL Baso # (Auto) 100 (0-100) /uL Sodium 139 (137-145) mmol/L Potassium 4.5 (3.4-5.1) mmol/L Chloride 105 (98-107) mmol/L Carbon Dioxide 27 (22-32) mmol/L BUN 33 H (7-17) mg/dL Creatinine 1.07 H (0.52-1.04) mg/dL Estimated GFR 50.8 L (>60) mL/min BUN/Creatinine Ratio 30.8 H (6-22) Glucose 128 H (80-110) mg/dL Calcium 9.5 (8.4-10.2) mg/dL Total Bilirubin 0.3 (0.2-1.3) mg/dL AST 21 (14-36) IU/L ALT 16 (<35) IU/L Alkaline Phosphatase 62 (38-126) U/L Total Protein 6.6 (6.3-8.2) g/dL Albumin 3.8 (3.5-5.0) g/dL Globulin 2.8 (1.7-4.1) g/dL Albumin/Globulin Ratio 1.4 (1.0-2.8) U Opiates 300ng/mL cut (Negative) Ur Oxycodone Screen (Negative) Urine Methadone Screen (Negative) Ur Barbiturates Screen (Negative) U Tricyclic Antidepress (Negative) Ur Phencyclidine Scrn (Negative) Ur Amphetamines Screen (Negative) U Methamphetamines Scrn (Negative) Ur MDMA Scrn (Ecstasy) (Negative) U Benzodiazepines Scrn (Negative) Urine Cocaine Screen (Negative) U Marijuana (THC) Screen (Negative) Ethyl Alcohol < 10 ( - 10) mg/dL SARS-CoV-2 (PCR) Negative (Negative) 04/24/21 04/25/21 04/25/21 Range/Units 03:00 12:25 12:25 WBC 10.6 (4.5-11.0) X10^3/uL RBC 3.81 L (4.0-5.2) X10^6/uL Hgb 12.6 (12.0-16.0) g/dL Hct 37.3 (36-46) % MCV 97.7 (80-100) fL MCH 33.0 (26-34) PG MCHC 33.8 (30-36) % RDW 14.3 (11.6-14.8) % Plt Count 170 (150-400) X10^3/uL Neut % (Auto) 55.8 D (50-75) % Lymph % (Auto) 33.3 D (25-40) % Houghton % (Auto) 7.8 (3-14) % Eos % (Auto) 1.9 L (2-4) % Baso % (Auto) 1.2 (0-2) % Neut # (Auto) 5900 (2756-7605) /uL Lymph # (Auto) 3500 (7219-7894) /uL Houghton # (Auto) 800 (0-900) /uL Eos # (Auto) 200 (0-450) /uL Baso # (Auto) 100 (0-100) /uL Sodium 137 (137-145) mmol/L Potassium 4.8 (3.4-5.1) mmol/L Chloride 103 (98-107) mmol/L Carbon Dioxide 26 (22-32) mmol/L BUN 24 H (7-17) mg/dL Creatinine 0.99 (0.52-1.04) mg/dL Estimated GFR 55.6 L (>60) mL/min BUN/Creatinine Ratio 24.2 H (6-22) Glucose 130 H (80-110) mg/dL Calcium 10.7 H (8.4-10.2) mg/dL Total Bilirubin (0.2-1.3) mg/dL AST (14-36) IU/L ALT (<35) IU/L Alkaline Phosphatase (38-126) U/L Total Protein (6.3-8.2) g/dL Albumin (3.5-5.0) g/dL Globulin (1.7-4.1) g/dL Albumin/Globulin Ratio (1.0-2.8) U Opiates 300ng/mL cut Negative (Negative) Ur Oxycodone Screen Negative (Negative) Urine Methadone Screen Negative (Negative) Ur Barbiturates Screen Negative (Negative) U Tricyclic Antidepress Positive H (Negative) Ur Phencyclidine Scrn Negative (Negative) Ur Amphetamines Screen Negative (Negative) U Methamphetamines Scrn Negative (Negative) Ur MDMA Scrn (Ecstasy) Negative (Negative) U Benzodiazepines Scrn Negative (Negative) Urine Cocaine Screen Negative (Negative) U Marijuana (THC) Screen Negative (Negative) Ethyl Alcohol ( - 10) mg/dL SARS-CoV-2 (PCR) (Negative) Urine Dip Bedside Urine Glucose Negative Bedside Urine Bilirubin - Negative Bedside Urine Ketone - Negative Urine Specific [place] 1.02 Bedside Urine Occult Blood - Negative Bedside Urine pH 6 Bedside Urine Protein - Negative Bedside Urine Urobilinogen - Negative Bedside Urine Nitrite - Negative Bedside Urine Leukocytes - Negative Esterase MDM Narrative Medical decision making narrative: 04/24/21 (Mariel) This is a 71-year-old female who is here for hallucinations. Patient has bipolar history has had prior psychosis. We are currently searching for placement patient is voluntarily requesting placement and expressed this to myself as well today. We did restart some of her home daily medications she has been off them for several days prior to arrival. Patient has been cooperative and calm throughout her stay in the department during my shift. 04/25/21 (Mariel). Patient signed out to myself by Dr. Gonzalez. Currently seeking voluntary placement. Patient has been agreeable throughout the day. We do not have her Geodon available should we did additional dose of Seroquel today. 04/25/21 (kevin) patient monitored all evening without issue. Up to the restroom multiple times. 04/26/21 (Mariel). Patient signed out to myself by Dr. Naranjo. We have been seeking voluntary placement but have not been able to find this. There was d iscussion about discharge home yesterday but the local pharmacy was not open and we could not refill patient's Geodon. She does see Dr. Storey who was contacted and may be able to see her at noon today in the ED. patient has continued to be cooperative here in the department. Dr. Storey saw her actually recommends possible eye TA as patient is clearly gravely disabled and has any be made 24 hours out from her discharge from psychiatric facilities. [facility] was contacted. They asked for head CT his daughter noted that patient sort of had a decline over the past year. Based on her advanced age this was included and is negative the patient continues to be medically cleared. Patient was deemed involuntary by Alvina from [facility]. [facility] accepts patient under Dr. Ramachandran with plan for transfer this evening. Discharge Plan Departure Patient Disposition: Xfer Psychiatric Hosp Clinical Impression: Psychosis Referrals: Alina Corcoran MD [Primary Care Provider] -
[2021-04-24 02:12] LABS: COVID19 -Nasal RAPID Negative (Negative)
[2021-04-24 03:08] LABS: Add Manual Diff / Slide Review NO; Basophils Absolute Auto 100 /uL (0-100); Basophils Percent Auto 1.2 % (0-2); Eosinophils Absolute Auto 200 /uL (0-450); Eosinophils Percent Auto 2.8 % (2-4); Hematocrit 30.5 % (36-46); Hemoglobin 10.3 g/dL (12.0-16.0); Lymphocytes Absolute Auto 3800 /uL (1100-4500); Lymphocytes Percent Auto 53.4 % (25-40); Mean Corpuscular HGB Conc 33.9 % (30-36); Mean Corpuscular Hemoglobin 33.3 PG (26-34); Mean Corpuscular Volume 98.3 fL (80-100); Monocytes Absolute Auto 600 /uL (0-900); Monocytes Percent Auto 8.6 % (3-14); Neutrophils Absolute Auto 2400 /uL (1500-7000); Platelet Count 154 X10^3/uL (150-400); Red Cell Distribution Width 14.3 % (11.6-14.8); White Blood Cell Count 7.1 X10^3/uL (4.5-11.0)
[2021-04-24 03:16] LABS: Ur Creatinine 20 (Normal)
[2021-04-24 03:17] LABS: UR Morphine/Opiate cutoff 300 Negative (Negative); Ur Specific Gravity 1.015 (Normal); Urine Amphetamines Negative (Negative); Urine Barbiturates Negative (Negative); Urine Benzodiazepines Negative (Negative); Urine Cocaine Negative (Negative); Urine MDMA Negative (Negative); Urine Methadone Negative (Negative); Urine Methamphetamines Negative (Negative); Urine Oxycodone Negative (Negative); Urine Phencyclidine Negative (Negative); Urine Tetrahydrocannabinol Negative (Negative); Urine Tricyclic Antidepressant Positive (Negative); Urine pH 5 (Normal)
[2021-04-24 03:23] LABS: Alanine Aminotransferase 16 IU/L (<35); Albumin 3.8 g/dL (3.5-5.0); Albumin Globulin Ratio 1.4 (1.0-2.8); Alkaline Phosphatase 62 U/L (38-126); Aspartate Aminotransferase 21 IU/L (14-36); BUN Creatinine Ratio 30.8 (6-22); Bilirubin Total 0.3 mg/dL (0.2-1.3); Blood Urea Nitrogen 33 mg/dL (7-17); Calcium 9.5 mg/dL (8.4-10.2); Carbon Dioxide 27 mmol/L (22-32); Chloride 105 mmol/L (98-107); Estimated Glomerular Filt Rate 50.8 mL/min (>60); Ethanol (ETOH) < 10 mg/dL; Globulin 2.8 g/dL (1.7-4.1); Glucose 128 mg/dL (80-110); HEMOLYSIS < 15 (0-50); Potassium 4.5 mmol/L (3.4-5.1); Sodium 139 mmol/L (137-145); Total Protein 6.6 g/dL (6.3-8.2)
--- NOTE | 2021-04-24 07:02 | PC.NURSE ---
Pt states she wants to go to [facility] for evaluation.
--- NOTE | 2021-04-24 13:18 | PC.NURSE ---
patient states that she only wants to go to [facility] for help. Cholo CRAIG stated that [facility] might not be an option due to bed availability.
[2021-04-24] MEDS: BENZOCAINE/MENTHOL 1 LOZ PKT 1 EACH PO (14:08)
[2021-04-24] MEDS: lisinopriL 10 MG TABLET PO (14:08)
[2021-04-24] MEDS: ASPIRIN EC 81 MG TABLET PO (14:08)
[2021-04-24] MEDS: DIVALPROEX ER 250 MG TAB 1500 MG PO (14:09)
[2021-04-24] MEDS: QUETIAPINE 25 MG TABLET PO (14:14)
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
--- NOTE | 2021-04-24 15:02 | CM.SWNOTE ---
ED BED TEACHER contacted: Mitchell at [facility], no beds avail today Erica @ [facility], no admits due to covid outbreak [facility]--they have multiple pts in cue, will call back when able to rec packet for review Isak at [facility], no beds today [facility] spoke with charger Trupti, no beds avail today Jourdan spoke to Debi, no beds avail today [facility] intake, no beds avail today [facility], spoke to Shilpa, bed in low acuity unit for which they will screen pt is avail. Clinicals faxed for review @1500. Patient updated and agreeable to go to [facility] if accepted for admission. Nurse updated. Cholo CHOE
[2021-04-24] MEDS: QUETIAPINE 100 MG TABLET 200 MG PO (21:35)
--- NOTE | 2021-04-25 00:06 | PC.NURSE ---
Pt threw her book at the sliding glass door, and stated that there was someone in the room who shouldn't be. Comfort measures and medication offered-- pt declined med, accepted [facility]. Dr Gonzalez notified. Pt went to the bathroom and now is lying in bed.
[2021-04-25] MEDS: BENZOCAINE/MENTHOL 1 LOZ PKT 1 EACH PO (00:20)
[2021-04-25] MEDS: OLANZapine ODT 10 MG TAB PO (00:20)
--- NOTE | 2021-04-25 02:46 | PC.NURSE ---
Received call from [facility]. States pt's labs including hemoglobin, hematacrit and bun are out of range for admission to their facility. States hemaglobin needs to be above 12, hematacrit needs to be above 38 and bun needs to be less than 28. Provider aware
[2021-04-25] MEDS: LEVOTHYROXINE 150 MCG TABLET PO (06:40)
[2021-04-25] MEDS: ASPIRIN EC 81 MG TABLET PO (08:59)
[2021-04-25] MEDS: lisinopriL 10 MG TABLET PO (08:59)
[2021-04-25 12:46] VITALS: PULSE 99; O2SAT 99
[2021-04-25 12:47] VITALS: BP 143/70; PULSE 98; O2SAT 98
[2021-04-25 12:55] LABS: Add Manual Diff / Slide Review NO; Basophils Absolute Auto 100 /uL (0-100); Basophils Percent Auto 1.2 % (0-2); Eosinophils Absolute Auto 200 /uL (0-450); Eosinophils Percent Auto 1.9 % (2-4); Hematocrit 37.3 % (36-46); Hemoglobin 12.6 g/dL (12.0-16.0); Lymphocytes Absolute Auto 3500 /uL (1100-4500); Lymphocytes Percent Auto 33.3 % (25-40); Mean Corpuscular HGB Conc 33.8 % (30-36); Mean Corpuscular Volume 97.7 fL (80-100); Monocytes Absolute Auto 800 /uL (0-900); Monocytes Percent Auto 7.8 % (3-14); Neutrophils Absolute Auto 5900 /uL (1500-7000); Neutrophils Percent Auto 55.8 % (50-75); Platelet Count 170 X10^3/uL (150-400); Red Blood Cell Count 3.81 X10^6/uL (4.0-5.2); Red Cell Distribution Width 14.3 % (11.6-14.8); White Blood Cell Count 10.6 X10^3/uL (4.5-11.0)
[2021-04-25 12:56] VITALS: BP 143/70; PULSE 98; O2SAT 98
[2021-04-25 13:06] LABS: BUN Creatinine Ratio 24.2 (6-22); Blood Urea Nitrogen 24 mg/dL (7-17); Calcium 10.7 mg/dL (8.4-10.2); Carbon Dioxide 26 mmol/L (22-32); Chloride 103 mmol/L (98-107); Estimated Glomerular Filt Rate 55.6 mL/min (>60); Glucose 130 mg/dL (80-110); HEMOLYSIS < 15 (0-50); Potassium 4.8 mmol/L (3.4-5.1); Sodium 137 mmol/L (137-145)
--- NOTE | 2021-04-25 15:13 | CM.SWNOTE ---
Addendum entered by Cholo Yepez 04/25/21 17:05: NUMERICAL CONTROL LATHE OPERATOR and discharge planner attempted to contact Dr. Storey re patient to see if she could see pt in ED setting; unable to get in touch with provider today. NUMERICAL CONTROL LATHE OPERATOR attempted to safety plan with patient in order to facilitate discharge home but patient is still experiencing increased paranoia and stated she believes NUMERICAL CONTROL LATHE OPERATOR has been in contact with Dr. Storey are you sure you haven't spoken to her? patient asked repeatedly and insists [facility] I think they do. I see people being picked up by ambulances. I need to go to where I need to go to get help. Original Note: ED NUMERICAL CONTROL LATHE OPERATOR contacted [facility] who have no beds available for patient today per Nicki. ED NUMERICAL CONTROL LATHE OPERATOR spoke with [facility] who requested updated labs and vitals. Patient declined due to lab results showing patient is still too medically acute. Per Laura. ED NUMERICAL CONTROL LATHE OPERATOR spoke with [facility] who reported patient is too acute for their unit. per Annalise ED NUMERICAL CONTROL LATHE OPERATOR spoke with [facility], no beds avail today. ED [facility] spoke to Jourdan Rowe); no beds currently but possibly some discharges AMA later. She will call back if there is a bed. ED NUMERICAL CONTROL LATHE OPERATOR spoke to [facility] reported no beds available today. Cholo Yepez [facility]
[2021-04-25] MEDS: QUETIAPINE 25 MG TABLET PO (17:40)
[2021-04-25] MEDS: QUETIAPINE 100 MG TABLET 200 MG PO (21:10)
[2021-04-25] MEDS: DIVALPROEX ER 250 MG TAB 1500 MG PO (21:10)
[2021-04-25 21:38] VITALS: PULSE 95; O2SAT 97
[2021-04-25 21:39] VITALS: BP 133/60; PULSE 97; PULSE 98; O2SAT 96; O2SAT 98
--- NOTE | 2021-04-25 23:15 | PC.NURSE ---
pt appears to be sleeping at this time
--- NOTE | 2021-04-25 23:54 | PC.NURSE ---
pt appears to be sleeping at this time
[2021-04-26] MEDS: LEVOTHYROXINE 150 MCG TABLET PO (06:24)
[2021-04-26] MEDS: lisinopriL 10 MG TABLET PO (08:35)
[2021-04-26] MEDS: ASPIRIN EC 81 MG TABLET PO (08:38)
[2021-04-26] MEDS: allopurinoL 300 MG TABLET PO (08:55)
[2021-04-26 12:48] VITALS: BP 147/69; PULSE 102; RESP 16; O2SAT 98
--- NOTE | 2021-04-26 13:10 | PC.NURSE ---
Dr Storey at bedside.
--- NOTE | 2021-04-26 14:41 | DI.CT.S_ITS ---
PROCEDURE: CT HEAD/BRAIN WO CON INDICATIONS: worsening psych hx over time. TECHNIQUE: Noncontrast 4.5 mm thick angled axial sections acquired from the foramen magnum to the vertex, with coronal and sagittal reformats. For radiation dose reduction, the following was used: automated exposure control, adjustment of mA and/or kV according to patient size. COMPARISON: MRI brain 12/17/2020; CT head 01/04/2021 FINDINGS: Image quality: Excellent. CSF spaces: Basal cisterns are patent. No extra-axial fluid collections. Ventricles are normal in size and shape. Brain: No midline shift. No intracranial masses or hemorrhage. Valverde-white matter interface is normal. Skull and face: Calvarium and visualized facial bones are intact, without suspicious lesions. Sinuses: Visualized sinuses and mastoids are clear. IMPRESSION: No acute intracranial finding. Dictated by: Mike Guy M.D. on 04/26/2021 at 14:59 Approved by: Mike Guy M.D. on 04/26/2021 at 15:00
--- NOTE | 2021-04-26 16:14 | CM.SWNOTE ---
Addendum entered by Aziza Segundo 04/26/21 17:27: DUMP TRUCK DRIVER Note DCR Alvina informs DUMP TRUCK DRIVER that patient is accepted at [facility] for SELENA bed. Accepting provider is Dr. Isak Ramachandran. Intake is [facility] (Ph. # [phone]) and nurse to nurse is (Ph. # [phone]). It is reported that patient's daughter is drafting an affidavit. Patient to arrive at [address] DUMP TRUCK DRIVER reviews this with patient and patient requests to meet with Dr. Storey, Dr. Storey is aware. Plan: Patient to transfer to [facility]. RAFA Byrd Original Note: DUMP TRUCK DRIVER Note DUMP TRUCK DRIVER calls [facility] and it is reported that they are at capacity. DUMP TRUCK DRIVER enters room to meet with patient, to inform patient of [facility] not having any beds. Patient states she only wants to go to [facility]. Dr. Storey arrives to meet with patient for consult, it is recommended that DCR be dispatched. DUMP TRUCK DRIVER calls [facility] and dispatches DCR. DUMP TRUCK DRIVER speaks with patient's daughter who reports concern for patient. Daughter states that patient is not at baseline and decline has been observed for about a year. Daughter requests a CT scan if ED provider is able to do so. Daughter states that she plans to be POA and get guardianship of patient and plans to seek f/u care from patient's PCP for patient. Alvina DEMPSEY is assigned. Alvina meets with patient and it is reported that patient presents with paranoia and is appropriate for detainment. DUMP TRUCK DRIVER calls Dr. Storey regarding patient and Alvina states that patient requests to meet with Dr. Storey. Plan: DCR to seek [facility] beds for patient. RAFA Byrd
--- NOTE | 2021-04-26 17:03 | PM.CN ---
History of Present Illness Consult details Date Patient Seen: 04/26/21 Time Patient Seen: 13:00 Chief complaint: hallucinations Reason for consult: Treatment Evaluations Requesting provider: Rosa Isela Floyd Narrative: CC: ?I want to go to [facility]? HOSPITAL COURSE: See ED notes; brought in by EMS. Cooperative in ED and appropriate behavior. Requesting to return to [facility]. Getting home meds except for ziprasidone which we can't get here. INTERVIEW: Madhav reports wanting to go back to [facility] to feel safe. Recognizes me immediately, states she's glad to see me. Doesn't feel safe at home, states she feels slightly safer in the ED but not as safe as she did at [facility]. Endorses being on the medical unit recently, states she was never admitted to the mental health unit, does not remember or believe she was evaluated by anyone from the [facility] while she was there. Some suicidal thoughts, denies looking for any way to hurt herself here in the emergency room. Endorses voices, less so here than at home but still present States that she is trying to separate herself from her daughter Lynne, every time she has gone out of hospital feels that Lynne controls her life and that does not feel good to her Meds Home Medications and Allergies Home Medications Medication Instructions Recorded Confirmed Type indomethacin 25 mg capsule See Rx Instructions PO TID PRN #40 06/23/19 04/24/21 Rx cap multivitamin 1 tab PO DAILY 04/30/20 03/28/21 History aspirin 81 mg tablet,delayed 81 mg PO DAILY #30 tab 05/14/20 04/24/21 Rx release allopurinol 300 mg tablet See Rx Instructions .ROUTE 11/19/20 04/24/21 Rx .COMPLEX #90 tab metformin 500 mg tablet See Rx Instructions .ROUTE 11/19/20 03/28/21 Rx .COMPLEX #360 tab levothyroxine 150 mcg tablet See Rx Instructions .ROUTE 01/25/21 04/24/21 Rx .COMPLEX #90 tab atorvastatin 40 mg tablet See Rx Instructions .ROUTE 02/03/21 04/24/21 Rx .COMPLEX #90 tab lisinopril 10 mg tablet See Rx Instructions .ROUTE 02/03/21 04/24/21 Rx .COMPLEX #90 tab divalproex 500 mg tablet,extended 1,500 mg PO BEDTIME #90 tab 02/08/21 04/24/21 Rx release 24 hr quetiapine 100 mg tablet 200 mg PO BEDTIME #60 tab 03/28/21 04/24/21 Rx ziprasidone HCl 40 mg capsule 40 mg PO BID #60 cap 03/28/21 04/24/21 Rx zolpidem 5 mg tablet (Ambien) 5 mg PO BEDTIME 03/28/21 04/24/21 History divalproex 500 mg tablet,extended 1,500 mg PO .HS #90 tab 04/07/21 04/24/21 Rx release 24 hr (Depakote ER) quetiapine 100 mg tablet (Seroquel) 200 mg PO BEDTIME #60 tab 04/07/21 04/24/21 Rx ziprasidone HCl 40 mg capsule 40 mg PO BID #60 cap 04/07/21 04/24/21 Rx zolpidem 5 mg tablet (Ambien) 5 mg PO BEDTIME PRN #20 tab 04/07/21 04/24/21 Rx Allergies Allergy/AdvReac Type Severity Reaction Status Date / Time Sulfa (Sulfonamide Allergy Mild RASH Verified 04/25/21 15:40 Antibiotics) haloperidol [HALOPERIDOL] Allergy Unknown Verified 04/25/21 15:40 lithium [LITHIUM] Allergy Unknown Verified 04/25/21 15:40 risperidone [RISPERIDONE] Allergy Unknown Verified 04/25/21 15:40 perphenazine AdvReac uncontrolled Verified 04/25/21 15:40 hand shaking Exam Vital Signs (past 8 hours): - 04/26/21 12:48 Pulse Rate 102 H Respiratory Rate 16 Blood Pressure 147/69 H Pulse Oximetry 98 Oxygen Delivery Method Room Air Narrative Exam Narrative: MENTAL STATUS EXAM Appearance: Unkempt, wearing hospital garb Behavior: Sitting in chair eating ice cream, cooperative, good eye contact, notable resting tremor worse in right hand and suppressable Gait: Not observed Speech: Normal rate and volume Mood: Not good? Affect: Constricted Thought Process: Some guarding, circumstantial Thought Content: Passive SI without plan/intent, denies homicidal ideation, + AH, endorsing paranoia of Attention: Slightly distractible Orientation: Oriented to person place and time Memory: Intact for interview to recent events Insight: Limited Judgment: Limited Objective Labs Result Diagrams: 04/25/21 12:25 04/25/21 12:25 PFSH Medical History Ankle pain (2007) Anxiety (1994) Bipolar 1 disorder, depressed, partial remission Bipolar 1 disorder, mixed, full remission Bipolar disorder (1989) Bipolar I disorder, most recent episode depressed, severe without psychotic features Cataract (2011) Chicken pox CTS (carpal tunnel syndrome) (1987) Depression (196) DM type 2 (diabetes mellitus, type 2) Foot pain (~2002) Fractures (2007) Hayfever (~1989) Hyperlipidemia Hypertension Hypothyroidism Measles Peripheral neuropathy (2013) RLS (restless legs syndrome) (1999) Sleep apnea (08/2015) Urinary incontinence Surgical History Anesthesia complication History of carpal tunnel repair (~1997) History of surgery (04/2008) Family History Child Age: 49 Arthritis Mother Heart disease Family history of fraternal twins Family history of identical twins Levin gestation with first Social History marital status: number of children: 2 household members: none lives independently: Yes caregiver/support person: No housing: house pets and animals: No education level: high school occupational status: unemployed leisure activities: reading and volunteer work other: walk,garden,visit friends,orthodoxy,word puzzles Safety seatbelt use: always water heater temp set < 120 deg: Yes working smoke detector in home: Yes fire extinguisher in home: Yes carbon monox detector in home: Yes Tobacco & Substance Use Smoking Status: Never smoker second hand exposure: No alcohol intake: current substance use type: does not use Diet and Exercise during the past year weight has: other well-balanced diet: rarely or never daily servings fruits/ve-1 caffeine: Yes eating out: 1-3 times/week frequency: 3-4 times per week duration: 15-30 minutes/day Assessment & Plan Assessment and plan (1) Psychosis: Status: Acute (2) Manic disorder, recurrent episode, severe, with psychotic behavior: Problem details: Dec 2020 inpatient stay Status: Acute Plan ASSESSMENT: Madhav Coats is a 71-year-old female, well known to me, I have followed outpatient since 2017. I am consulting in the emergency room for treatment planning purposes. My impression today as she continues to struggle with significant psychosis beyond what we have seen. This initially started in December 2020, and has included multiple inpatient stays including one as a [facility] with diagnosis of catatonia and 1 delusional episode eloping to [place] and being found in public restroom after staying there for some time. We have recently been unsuccessful in maintaining outpatient treatment, increasing paranoia surrounding her home is a barrier. I do believe she currently needs inpatient treatment for safety and stabilization, and will coordinate with the inpatient team to start working on a more viable outpatient plan. May need to consider PACT upon discharge if able to access, or a more supportive living environment. Additionally, may need to develop more effective medication regimen, since current medications have not provided improvement in stability. The addition of quetiapine and ziprasidone to her chronic regimen of depakote has been well tolerated overall, but not provided significant benefit that I can tell. She has significant SE with several other antipsychotic agents. She displays resting tremor that I have not seen previously, may need neurology evaluation as well to rule out new diagnostic picture. RECOMMENDATIONS: - Pursue inpatient psychiatric treatment as planned, including involuntary treatment - Continue current medications: quetiapine 300mg QHS, ziprasidone 40mg BID, depakote ER 1500mg QHS - Dr. Storey's team to coordinate with inpatient unit on discharge planning once stabilized. Time Spent With Patient Time with patient: less than 30 minutes
[2021-04-26 18:13] VITALS: BP 148/99; PULSE 108; RESP 18; TEMP 36.6; O2SAT 97
== END 2021-04-26 18:55 ==
PROVIDERS: Emergency Medicine; Emergency Provider Emergency Medicine; Family Provider Family Medicine; PCP Family Medicine
DX: F29 Unspecified psychosis not due to a substance or known physiological condition (principal); Z86.16 Personal history of COVID-19; Z88.8 Allergy status to other drugs, medicaments and biological substances; Z20.822 Contact with and (suspected) exposure to COVID-19
CPT/HCPCS: 36415; 70450; 80048; 80053; 80305; 80320; 81003; 85025; 87635; 99284; C9803

== ENCOUNTER → 2021-05-17 14:57 | Outpatient (CLI) | payer MEDICARE, SELFPAY ==
[2020-05-13 23:23] VITALS: BMI 43.2
--- NOTE | 2021-05-17 14:58 | DI.RAD.S_ITS ---
PROCEDURE: XR WRIST LT MIN 3V INDICATIONS: Left wrist pain, decreased ROM TECHNIQUE: 3 views of the wrist were acquired. COMPARISON: None. FINDINGS: Bones: Small calcification adjacent to tip of ulnar styloid is seen suggestive of age indeterminate avulsion injury. No other fracture or dislocation is seen. Mild osteoarthritic changes throughout wrist joints are seen. No suspicious bony lesions. Scaphoid view: Scaphoid is grossly intact. Soft tissues: No suspicious soft tissue calcifications. IMPRESSION: Mild wrist joint osteoarthritis. Age indeterminate avulsion injury involving ulnar styloid. No other fracture or dislocation. No gross soft tissue abnormality. Dictated by: Les Greenfield M.D. on 05/17/2021 at 16:08 Approved by: Les Greenfield M.D. on 05/17/2021 at 16:10
== END ==
PROVIDERS: Family Provider Family Medicine; PCP Family Medicine; Referring Provider Physician Assistant; Visit Provider Physician Assistant
DX: M19.032 Primary osteoarthritis, left wrist (principal); M25.532 Pain in left wrist; S69.82XA Other specified injuries of left wrist, hand and finger(s), initial encounter; X58.XXXA Exposure to other specified factors, initial encounter
CPT/HCPCS: 73110

== ENCOUNTER → 2021-07-15 14:01 | Outpatient (CLI) | payer MEDICARE, SELFPAY ==
[2020-05-13 23:23] VITALS: BMI 43.2
[2021-07-15 15:09] LABS: Add Manual Diff / Slide Review NO; Basophils Absolute Auto 0 /uL (0-100); Basophils Percent Auto 0.4 % (0-2); Eosinophils Absolute Auto 100 /uL (0-450); Eosinophils Percent Auto 2.3 % (2-4); Hematocrit 35.4 % (36-46); Hemoglobin 12.1 g/dL (12.0-16.0); Lymphocytes Absolute Auto 2900 /uL (1100-4500); Lymphocytes Percent Auto 44.4 % (25-40); Mean Corpuscular HGB Conc 34.1 % (30-36); Mean Corpuscular Hemoglobin 32.9 PG (26-34); Mean Corpuscular Volume 96.6 fL (80-100); Monocytes Absolute Auto 300 /uL (0-900); Monocytes Percent Auto 4.7 % (3-14); Neutrophils Absolute Auto 3100 /uL (1500-7000); Neutrophils Percent Auto 48.2 % (50-75); Platelet Count 162 X10^3/uL (150-400); Red Blood Cell Count 3.66 X10^6/uL (4.0-5.2); Red Cell Distribution Width 14.4 % (11.6-14.8); White Blood Cell Count 6.5 X10^3/uL (4.5-11.0)
[2021-07-15 15:24] LABS: Alanine Aminotransferase 14 IU/L (<35); Albumin 4.5 g/dL (3.5-5.0); Albumin Globulin Ratio 1.4 (1.0-2.8); Alkaline Phosphatase 60 U/L (38-126); Aspartate Aminotransferase 28 IU/L (14-36); BUN Creatinine Ratio 31.1 (6-22); Bilirubin Total 0.3 mg/dL (0.2-1.3); Blood Urea Nitrogen 37 mg/dL (7-17); Carbon Dioxide 26 mmol/L (22-32); Chloride 104 mmol/L (98-107); Cholesterol 203 mg/dL (140-199); Globulin 3.2 g/dL (1.7-4.1); Glucose 118 mg/dL (80-110); HDL Cholesterol 53 mg/dL (40-60); HEMOLYSIS < 15 (0-50); LDL Cholesterol Calculated 91 mg/dL (<100); Potassium 4.4 mmol/L (3.4-5.1); Sodium 142 mmol/L (137-145); Total Protein 7.7 g/dL (6.3-8.2); Triglycerides 296 mg/dL (35-150)
[2021-07-15 15:28] LABS: Hemoglobin A1C% w Est Avg Glu 6.2 % (4.0-6.0)
[2021-07-16 05:13] LABS: Valproic Acid (Depakene) Total 120 ug/mL (50-100)
== END ==
PROVIDERS: Family Provider Family Medicine; PCP Family Medicine; Referring Provider Psychiatry & Neurology Psychiatry; Visit Provider Psychiatry & Neurology Psychiatry
DX: F31.2 Bipolar disorder, current episode manic severe with psychotic features (principal); Z51.81 Encounter for therapeutic drug level monitoring; G25.89 Other specified extrapyramidal and movement disorders; T50.905A Adverse effect of unspecified drugs, medicaments and biological substances, initial encounter
CPT/HCPCS: 36415; 80053; 80061; 80164; 83036; 84439; 84443; 85025

== ENCOUNTER → 2021-08-24 09:34 | Outpatient (CLI) | payer MEDICARE, SELFPAY ==
[2020-05-13 23:23] VITALS: BMI 43.2
[2021-08-24 13:11] LABS: TSH w/ Reflex to FT4 1.55 uIU/mL (0.47-4.68)
== END ==
PROVIDERS: Family Provider Family Medicine; PCP Family Medicine; Referring Provider Family Medicine; Visit Provider Family Medicine
DX: E03.9 Hypothyroidism, unspecified (principal)
CPT/HCPCS: 36415; 84443

== ENCOUNTER 2021-08-27 14:34 | Emergency (ER) | payer MEDICARE, SELFPAY ==
[2020-05-13 23:23] VITALS: BMI 43.2
--- NOTE | 2021-08-27 16:06 | PC.NURSE ---
unable to locate 1600
[2021-08-27 16:51] VITALS: BP 164/87; PULSE 96; RESP 16; TEMP 36.4; O2SAT 98; BMI 36.8
[2021-08-27 19:25] VITALS: BP 178/88; PULSE 70; RESP 18; O2SAT 99
--- NOTE | 2021-08-27 19:46 | ED.FEMALEGU ---
HPI - Female Genitourinary General Chief complaint: Urogenital-Female Stated complaint: Thinks kidney stone x 2 weeks Time Seen by Provider: 08/27/21 19:45 History of Present Illness HPI Narrative: 71-year-old female nonsmoker with history of hypothyroid, hypertension and type 2 diabetes presents with a chief complaint of right flank pain with radiation into her groin for about 2 weeks. She denies any injury and states this feels somewhat like prior kidney stones. She states that at times her pain is severe and had others and seems to improve without any obvious provocation or palliation. She denies fever or chills. She denies nausea, vomiting or diarrhea. She denies any dysuria, frequency or urgency. She had been seen by her primary care provider who had ordered an outpatient ultrasound but has been having difficulty scheduling this. She is otherwise well and free of complaint Related Data Home Medications Medication Instructions Recorded Confirmed multivitamin 1 tab PO DAILY 04/30/20 08/24/21 cholecalciferol (vitamin D3) 125 125 mcg PO DAILY 05/11/21 08/24/21 mcg (5,000 unit) capsule Previous Rx's Medication Instructions Recorded indomethacin 25 mg capsule See Rx Instructions PO TID PRN #40 06/23/19 cap aspirin 81 mg tablet,delayed 81 mg PO DAILY #30 tab 05/14/20 release metformin 500 mg tablet See Rx Instructions .ROUTE 11/19/20 .COMPLEX #360 tab levothyroxine 150 mcg tablet See Rx Instructions .ROUTE 01/25/21 .COMPLEX #90 tab atorvastatin 40 mg tablet See Rx Instructions .ROUTE 02/03/21 .COMPLEX #90 tab divalproex 500 mg tablet,extended 1,500 mg PO BEDTIME #90 tab 07/11/21 release 24 hr (Depakote ER) lisinopril 10 mg tablet See Rx Instructions .ROUTE 07/15/21 .COMPLEX #90 tab benztropine 1 mg tablet 1 mg PO BID #60 tab 07/27/21 allopurinol 300 mg tablet See Rx Instructions .ROUTE 08/24/21 .COMPLEX #90 tab ziprasidone HCl 60 mg capsule 120 mg PO BEDTIME #60 cap 08/26/21 cephalexin 500 mg capsule 500 mg PO BID #14 cap 08/27/21 Allergies Allergy/AdvReac Type Severity Reaction Status Date / Time Sulfa (Sulfonamide Allergy Mild RASH Verified 08/24/21 08:29 Antibiotics) haloperidol [HALOPERIDOL] Allergy Unknown Verified 08/24/21 08:29 lithium [LITHIUM] Allergy Unknown Verified 08/24/21 08:29 risperidone [RISPERIDONE] Allergy Unknown Verified 08/24/21 08:29 perphenazine AdvReac uncontrolled Verified 08/24/21 08:29 hand shaking Review of Systems Review of Systems Narrative: GENERAL: Denies chills, fatigue, malaise, fever, sweats. HEENT: Denies sinus pain, ear pain, sore throat, difficulty swallowing, dizziness. RESPIRATORY: Denies dyspnea, cough, wheezing, hemoptysis, sputum. CARDIOVASCULAR: Denies chest pain, palpitations, orthopnea, edema, GASTROINTESTINAL: Denies nausea, vomiting, abdominal pain, diarrhea, constipation, melena. : See HPI MUSCULOSKELETAL: denies weakness, joint pain, or bony pain SKIN: Denies rash, skin lesions, or other NEUROLOGIC: Denies weakness, headache, numbness, change in speech, confusion, seizures, incoordination. PSYCHIATRIC: No concerning psychosocial issues. 12 point review of systems is negative except for those stated above Patient History Medical History Ankle pain (2007) Anxiety (1994) Bipolar 1 disorder, depressed, partial remission Bipolar 1 disorder, mixed, full remission Bipolar disorder (1989) Bipolar I disorder, most recent episode depressed, severe without psychotic features Cataract (2011) Chicken pox CTS (carpal tunnel syndrome) (1987) Depression (1961) DM type 2 (diabetes mellitus, type 2) Foot pain (~2002) Fractures (2007) Hayfever (~1989) Hyperlipidemia Hypertension Hypothyroidism Measles Peripheral neuropathy (2013) RLS (restless legs syndrome) (1999) Sleep apnea (08/2015) Urinary incontinence Surgical History Anesthesia complication History of carpal tunnel repair (~1997) History of surgery (04/2008) Family History Child Age: 49 Arthritis Mother Heart disease Family history of fraternal twins Family history of identical twins Levin gestation with first alcohol intake frequency: holidays/special occasions only Substance Use Type: does not use Exam Narrative Exam Narrative: GENERAL: 71 [] year old patient appears stated age. Well-developed patient, in mild distress. HEAD: Atraumatic. Normocephalic. EYES: Pupils equal round and reactive. Extraocular motions intact. No scleral icterus. No injection or drainage. ENT: Nose without bleeding, purulent drainage. Throat without erythema, tonsillar hypertrophy or exudate. Airway patent. NECK: Trachea midline. Non tender CARDIOVASCULAR: Regular rate and rhythm without murmurs, gallops, or rubs. RESPIRATORY: Clear to auscultation. Breath sounds equal bilaterally. No wheezes, rales, or rhonchi. GASTROINTESTINAL: Abdomen soft, tender to palpation in the right lower quadrant nondistended. EXTREMITIES: No edema or joint tenderness. BACK: Nontender without deformity or crepitance. No flank tenderness. NEURO: AOx3. SKIN: No rash or erythema of visible areas Initial Vital Signs Initial Vital Signs: Vital Signs Temperature 97.6 F 08/27/21 16:51 Pulse Rate 96 H 08/27/21 16:51 Respiratory Rate 16 08/27/21 16:51 Blood Pressure 164/87 H 08/27/21 16:51 Pulse Oximetry 98 08/27/21 16:51 Course Orders Ordered: ED Orders 08/27/21 21:19 CT kidney ureter bladder (KUB) Stat Discontinued Medications Hydrocodone Bitart/Acetaminophen (Hydrocodone/Acet 5/325 Prepack) 1 bottle MISC SEEINSTR ONE Stop: 08/27/21 22:13 Last Admin: 08/27/21 22:27 Dose: 1 bottle Documented by: ATAYLOR Cefazolin Sodium (Cephalexin 250 Mg Prepack) 1 bottle MISC SEEINSTR ONE Stop: 08/27/21 22:07 Last Admin: 08/27/21 22:26 Dose: 500 mg Documented by: ATAYLOR Sodium Chloride (Normal Saline 0.9%) 1,000 mls @ 1,000 mls/hr IV BOLUS ONE Stop: 08/27/21 20:45 Last Infusion: 08/27/21 22:40 Dose: 0 mls/hr Documented by: Admin: 08/27/21 21:16 Dose: 1,000 mls/hr Documented by: ATAYLOR Lorazepam (Lorazepam 2 Mg/Ml Inj) 0.5 mg IV NOW ONE Stop: 08/27/21 20:11 Last Admin: 08/27/21 20:55 Dose: 0.5 mg Documented by: MITCH Ondansetron HCl (Ondansetron 4 Mg Odt Prepack) 1 bottle MISC SEEINSTR ONE Stop: 08/27/21 22:13 Last Admin: 08/27/21 22:26 Dose: 1 bottle Documented by: MITCH Vital Signs Vital signs: Vital Signs - 8 hr 08/27/21 22:30 Pulse Rate 80 Respiratory Rate 16 Blood Pressure 148/76 H Pulse Oximetry 97 MDM - Female Genitourinary Lab Data Result diagrams: 08/27/21 20:32 08/27/21 20:45 Labs: Lab Results 08/27/21 08/27/21 08/27/21 Range/Units 19:45 20:32 20:45 WBC 10.0 (4.5-11.0) X10^3/uL RBC 3.93 L (4.0-5.2) X10^6/uL Hgb 13.0 (12.0-16.0) g/dL Hct 37.6 (36-46) % MCV 95.6 (80-100) fL MCH 33.0 (26-34) PG MCHC 34.5 (30-36) % RDW 14.9 H (11.6-14.8) % Plt Count 193 (150-400) X10^3/uL Neut % (Auto) 51.0 (50-75) % Lymph % (Auto) 40.9 H (25-40) % [place] % (Auto) 5.8 (3-14) % Eos % (Auto) 1.4 L (2-4) % Baso % (Auto) 0.9 (0-2) % Neut # (Auto) 5100 (6793-8690) /uL Lymph # (Auto) 4100 (1355-1408) /uL [place] # (Auto) 600 (0-900) /uL Eos # (Auto) 100 (0-450) /uL Baso # (Auto) 100 (0-100) /uL Sodium 137 (137-145) mmol/L Potassium 5.3 H (3.4-5.1) mmol/L Chloride 102 (98-107) mmol/L Carbon Dioxide 27 (22-32) mmol/L BUN 22 H (7-17) mg/dL Creatinine 1.09 H (0.52-1.04) mg/dL Estimated GFR 55 L (>60) mL/min BUN/Creatinine Ratio 20.2 (6-22) Glucose 96 (80-110) mg/dL Calcium 9.6 (8.4-10.2) mg/dL Urine RBC None seen (0-5/HPF) Urine WBC 5-10/hpf H (0-5/HPF) Ur Squamous Epith Cells 0-1 /hpf (0-5/HPF) Ur Renal Epithelial Cell 1-5/hpf H (0-1/HPF) Amorphous Sediment 1+ Urine Bacteria Occasional (0-1) (None) Urine Mucus 1+ H (Negative) Ur Culture Indicated? Specimen cultured Urine Dip Bedside Urine Glucose Negative Bedside Urine Bilirubin - Negative Bedside Urine Ketone - Negative Urine Specific [place] 1.025 Bedside Urine Occult Blood - Negative Bedside Urine pH 6.0 Bedside Urine Protein + 30 Bedside Urine Urobilinogen - Negative Bedside Urine Nitrite - Negative Bedside Urine Leukocytes - Negative Esterase MDM Narrative Medical decision making narrative: 71-year-old female with right flank pain with radiation to the groin increasing over 2 weeks. She is not a great historian but does report some urinary complaints. Labs are very reassuring and suggest urine infection, CT shows no obstructive uropathy or other significant abnormality. She is treated for pyelonephritis, and appropriate for discharge. She has no signs of sepsis, pain is well controlled, she is tolerating orals. Return precautions discussed and questions answered to her apparent satisfaction Discharge Plan Departure Patient Disposition: Home Clinical Impression: Acute flank pain, Acute UTI, Acute pyelonephritis Instructions: DI for Kidney Infection Activity Restrictions/Additional Instructions: *You have been diagnosed with [flank pain and subtle suggestion of urine infection. Your lab work is otherwise unremarkable and CT scan shows no evidence of stone, swelling of your kidney or other abnormal finding that could explain your pain. This is most likely an early pyelonephritis which is I urine infection has moved to your kidney *What to do: *Please continue to take your regular medications as directed. [x ] New medication prescriptions sent to your pharmacy: [[facility] in [place] ] [ ] New medication written as a paper prescription [ ] No new medications given *Please follow up with your primary care provider in 2-3 days, call for an appointment. Let them know you were seen in the Emergency Department and that we ask that you be seen in follow up. We will electronically transmit a record of today's note if your PCP is in our system *If you do not have a primary care provider please contact the [facility] Resource line at [phone]. They will ask some questions about your medical history and help get you set up with a doctor in the community. *Return to Emergency Department if you should have any new, worsening or concerning symptoms, such as [fever greater than 101 F, shaking chills, worsening pain, persistent vomiting or other bothersome symptoms] Prescriptions: New cephalexin 500 mg capsule 500 mg PO BID Qty: 14 0RF No Action allopurinol 300 mg tablet See Rx Instructions .ROUTE .COMPLEX Qty: 90 3RF Dose Instruction: TAKE 1 TABLET BY MOUTH DAILY FOR GOUT Rx Instructions: TAKE 1 TABLET BY MOUTH DAILY FOR GOUT divalproex [Depakote ER] 500 mg tablet extended release 24 hr 1,500 mg PO BEDTIME Qty: 90 2RF benztropine 1 mg tablet 1 mg PO BID Qty: 60 1RF Rx Instructions: 05/20/21 dose increase. Watch for dizziness multivitamin Tablet 1 tab PO DAILY 0RF cholecalciferol (vitamin D3) 125 mcg (5,000 unit) capsule 125 mcg PO DAILY 0RF indomethacin 25 mg capsule See Rx Instructions PO TID PRN (Reason: gout) Qty: 40 0RF Dose Instruction: Take 1 to 2 tabs three times daily for GOUT pain PO TID; administer with food or milk Rx Instructions: Take 1 to 2 tabs three times daily for GOUT pain PO three times a day PRN; metformin 500 mg tablet See Rx Instructions .ROUTE .COMPLEX Qty: 360 1RF Dose Instruction: TAKE 2 TABLETS (1000MG) TWOTIMES A DAY Rx Instructions: TAKE 2 TABLETS (1000MG) TWOTIMES A DAY levothyroxine 150 mcg tablet See Rx Instructions .ROUTE .COMPLEX Qty: 90 1RF Dose Instruction: TAKE 1 TABLET BY MOUTH EVERY DAY Rx Instructions: TAKE 1 TABLET BY MOUTH EVERY DAY atorvastatin 40 mg tablet See Rx Instructions .ROUTE .COMPLEX Qty: 90 2RF Dose Instruction: TAKE 1 TABLET BY MOUTH DAILY Rx Instructions: TAKE 1 TABLET BY MOUTH DAILY lisinopril 10 mg tablet See Rx Instructions .ROUTE .COMPLEX Qty: 90 2RF Dose Instruction: TAKE 1 TABLET BY MOUTH EVERY DAY Rx Instructions: TAKE 1 TABLET BY MOUTH EVERY DAY. ziprasidone HCl 60 mg capsule 120 mg PO BEDTIME Qty: 60 0RF aspirin 81 mg Tablet,Delayed Release (Dr/Ec) 81 mg PO DAILY Qty: 30 12RF Referrals: Alina Corcoran MD [Primary Care Provider] -
[2021-08-27 20:04] LABS: RBC Urine None Seen (0-5/HPF)
[2021-08-27 20:05] LABS: Amorphous Sediment Urine 1+; Bacteria Urine Occasional (0-1); Culture Indicated Urine Specimen Cultured; Mucus Urine 1+ (Negative); Renal Epithelial Cells Urine 1-5/HPF (0-1/HPF); Squamous Epithelial Cell Urine 0-1 /HPF (0-5/HPF); WBC Urine 5-10/HPF (0-5/HPF)
[2021-08-27 20:40] LABS: Add Manual Diff / Slide Review NO; Basophils Absolute Auto 100 /uL (0-100); Basophils Percent Auto 0.9 % (0-2); Eosinophils Absolute Auto 100 /uL (0-450); Eosinophils Percent Auto 1.4 % (2-4); Hematocrit 37.6 % (36-46); Lymphocytes Absolute Auto 4100 /uL (1100-4500); Lymphocytes Percent Auto 40.9 % (25-40); Mean Corpuscular HGB Conc 34.5 % (30-36); Mean Corpuscular Volume 95.6 fL (80-100); Monocytes Absolute Auto 600 /uL (0-900); Monocytes Percent Auto 5.8 % (3-14); Neutrophils Absolute Auto 5100 /uL (1500-7000); Platelet Count 193 X10^3/uL (150-400); Red Blood Cell Count 3.93 X10^6/uL (4.0-5.2); Red Cell Distribution Width 14.9 % (11.6-14.8)
[2021-08-27] MEDS: LORazepam 2 MG/ML INJ 0.5 MG IV (20:55)
[2021-08-27 21:02] LABS: BUN Creatinine Ratio 20.2 (6-22); Blood Urea Nitrogen 22 mg/dL (7-17); Calcium 9.6 mg/dL (8.4-10.2); Carbon Dioxide 27 mmol/L (22-32); Chloride 102 mmol/L (98-107); Estimated Glomerular Filt Rate 55 mL/min (>60); Glucose 96 mg/dL (80-110); HEMOLYSIS 37 (0-50); Potassium 5.3 mmol/L (3.4-5.1); Sodium 137 mmol/L (137-145)
--- NOTE | 2021-08-27 21:06 | PC.NURSE ---
Per tech pt attempted to climb out of CT scan, pt reports anxiety in machine. Dr. Gonzalez notified, orders received, pt transported to CT for another attempt.
[2021-08-27] MEDS: SODIUM CHLORIDE 0.9% 1,000 ML 1000 ML IV (21:16)
--- NOTE | 2021-08-27 21:19 | DI.CT.S_ITS ---
PROCEDURE: CT KIDNEY URETER BLADDER (KUB) INDICATIONS: flank pain, possible kidney stone vs. other TECHNIQUE: Axial sections were acquired from the lung bases to the pubic symphysis. Coronal and sagittal reformats were performed. For radiation dose reduction, the following was used: automated exposure control, adjustment of mA and/or kV according to patient size. COMPARISON: None. FINDINGS: Image quality: Excellent. Lung bases: There is elevation of the right hemidiaphragm. Otherwise, unremarkable. Heart: No significant findings. URINARY: Right Kidney: No stones or hydronephrosis. At the superior pole of the right kidney, there is a simple appearing water density cyst that measures up to 1.4 cm. Right Ureter: No hydroureter. Left Kidney: No stones or hydronephrosis. Left Ureter: No hydroureter. Numerous bilateral pelvic phleboliths are seen, which makes evaluation of the distal ureters difficult. However, no definite stones can be seen within the distal ureters. Bladder: Normal wall thickness. No stones. ABDOMEN: Liver: Unremarkable. Gallbladder: Unremarkable. Biliary ducts: Unremarkable. Pancreas: Unremarkable. Spleen: Unremarkable. Incidental note is made of accessory splenule is along the anterior and posterior aspects of the spleen. Adrenal Glands: Unremarkable. Stomach and Bowel: Stomach, small bowel loops, and colon are unremarkable. Peritoneum: No abnormal intraperitoneal fluid. No free air. Ventral Wall: No hernia. Abdominal Nodes: No enlarged retroperitoneal or mesenteric lymph nodes. Vessels: Aorta and inferior vena cava are normal in size. Atherosclerotic calcification is noted. PELVIS: Pelvic Organs: The uterus appears normal for age. No adnexal masses are seen. Pelvic Nodes: Unremarkable. Miscellaneous: No inguinal hernias are seen. Bones: Age-appropriate bony degenerative changes are seen. IMPRESSION: Negative for kidney stones or hydronephrosis. Numerous pelvic phleboliths are seen, which are each believed to be separate from the distal ureters. Incidental note is made of: Elevation of the right hemidiaphragm Simple appearing right renal cyst Accessory splenules Dictated by: Stephane Meza M.D. on 08/27/2021 at 20:30 Approved by: Stephane Meza M.D. on 08/27/2021 at 20:35
[2021-08-27] MEDS: cephALEXin 250 MG PREPACK 1 BOTTLE MISC (22:26)
[2021-08-27] MEDS: ONDANSETRON 4 MG ODT PREPACK 1 BOTTLE MISC (22:26)
[2021-08-27] MEDS: HYDROCODONE/ACET 5/325 PREPACK 1 BOTTLE MISC (22:27)
[2021-08-27 22:30] VITALS: BP 148/76; PULSE 80; RESP 16; O2SAT 97
== END 2021-08-27 22:50 | disposition home or self-care (01) ==
PROVIDERS: Emergency Provider Emergency Medicine; Family Provider Family Medicine; PCP Family Medicine
DX: N10 Acute pyelonephritis (principal); N39.0 Urinary tract infection, site not specified; R10.9 Unspecified abdominal pain
CPT/HCPCS: 36415; 74176; 80048; 81003; 81015; 85025; 87086; 96361; 96374; 99284; J2060

== ENCOUNTER → 2021-09-14 14:27 | Outpatient (CLI) | payer MEDICARE, SELFPAY ==
[2020-05-13 23:23] VITALS: BMI 43.2
== END ==
PROVIDERS: Family Provider Family Medicine; PCP Family Medicine; Visit Provider Physician Assistant
DX: R30.0 Dysuria (principal)
CPT/HCPCS: 87077; 87086; 87186

== ENCOUNTER → 2021-09-23 12:41 | Outpatient (CLI) | payer MEDICARE, SELFPAY ==
[2020-05-13 23:23] VITALS: BMI 43.2
[2021-09-24 05:44] LABS: Valproic Acid (Depakene) Total 90 ug/mL (50-100)
[2021-09-24 11:18] LABS: Alanine Aminotransferase 15 IU/L (<35); Albumin 4.2 g/dL (3.5-5.0); Albumin Globulin Ratio 1.4 (1.0-2.8); Alkaline Phosphatase 72 U/L (38-126); Aspartate Aminotransferase 42 IU/L (14-36); BUN Creatinine Ratio 24.2 (6-22); Bilirubin Total 0.3 mg/dL (0.2-1.3); Blood Urea Nitrogen 29 mg/dL (7-17); Calcium 9.4 mg/dL (8.4-10.2); Carbon Dioxide 23 mmol/L (22-32); Chloride 106 mmol/L (98-107); Estimated Glomerular Filt Rate 49 mL/min (>60); Globulin 2.9 g/dL (1.7-4.1); Glucose 176 mg/dL (80-110); HEMOLYSIS 22 (0-50); Potassium 4.6 mmol/L (3.4-5.1); Sodium 141 mmol/L (137-145); Total Protein 7.1 g/dL (6.3-8.2)
== END ==
PROVIDERS: Family Provider Family Medicine; PCP Family Medicine; Referring Provider Psychiatry & Neurology Psychiatry; Visit Provider Psychiatry & Neurology Psychiatry
DX: N39.0 Urinary tract infection, site not specified (principal); Z51.81 Encounter for therapeutic drug level monitoring
CPT/HCPCS: 36415; 80053; 80164; 87086

== ENCOUNTER 2022-01-22 17:46 | Observation (INO) | payer MEDICARE, SELFPAY ==
[2021-12-21 11:45] VITALS: BMI 43.2
[2022-01-22] VITALS (19 sets, daily range): BP systolic 150–205; BP diastolic 00–103; PULSE 92–190; RESP 16–39; TEMP 36–37.5; O2SAT 91–97; BMI 32.9
[2022-01-22] MEDS: SODIUM CHLORIDE 0.9% 2,449.41 ML 816.47 ML IV (17:49)
--- NOTE | 2022-01-22 17:49 | DI.CT.S_ITS ---
PROCEDURE: CT CERVICAL SPINE WO CON INDICATIONS: glf TECHNIQUE: Noncontrast 3 mm thick sections acquired from the skull base to the T4 level. Sagittal and coronal reformats were then constructed. For radiation dose reduction, the following was used: automated exposure control, adjustment of mA and/or kV according to patient size. COMPARISON: [facility], CT, CT HEAD/BRAIN WO CON, 01/22/2022, 18:01. [facility], CT, CT CHEST ABD PEL W CON, 01/22/2022, 18:46. FINDINGS: Image quality: This examination is somewhat limited by quantum mottle artifact. Bones: No fractures or dislocations. Visualized superior ribs are intact. Focal degenerative change can be seen at C5-C6, with at least moderate disc space narrowing with associated endplate irregularity and sclerosis. Soft tissues: Prevertebral soft tissues are normal in thickness. No paravertebral hematomas. No apical pneumothoraces. IMPRESSION: Negative for fracture. Focal C5-C6 degenerative change. Dictated by: Stephane Meza M.D. on 01/22/2022 at 18:28 Approved by: Stephane Meza M.D. on 01/22/2022 at 18:29
--- NOTE | 2022-01-22 17:49 | DI.CT.S_ITS ---
PROCEDURE: CT HEAD/BRAIN WO CON INDICATIONS: GLF, down 5 days TECHNIQUE: Noncontrast 4.5 mm thick angled axial sections acquired from the foramen magnum to the vertex, with coronal and sagittal reformats. For radiation dose reduction, the following was used: automated exposure control, adjustment of mA and/or kV according to patient size. COMPARISON: [facility], MR, MR BRAIN WITHOUT CONTRAST, 12/17/2020, 10:29. [facility], CT, CT HEAD/BRAIN WO CON, 01/04/2021, 19:52. [facility], CT, CT CHEST ABD PEL W CON, 01/22/2022, 18:46. [facility], CT, CT CERVICAL SPINE WO CON, 01/22/2022, 18:01. [facility], CT, CT HEAD/BRAIN WO CON, 04/26/2021, 14:44. FINDINGS: Image quality: Mild streak artifact can be seen through the skull base. CSF spaces: Basal cisterns are patent. No extra-axial fluid collections. The ventricles are symmetric in size and shape. Brain: No intracranial bleeds or masses. There is cerebral volume loss for age, with resultant ventricular and sulcal prominence. There are periventricular and deep white matter chronic small vessel ischemic changes. There is intracranial internal carotid artery atherosclerosis. Skull and face: Calvarium and visualized facial bones appear intact, without suspicious lesions. Incidental note is made of hyperostosis frontalis. This is not considered to be pathologic in a woman of this age. Sinuses: Visualized sinuses and mastoids are clear. IMPRESSION: No lucho intracranial abnormality can be seen for age. No infarction is identified. If there is strong clinical suspicion for an acute stroke, please consider a brain MRI for further evaluation, as it is more sensitive (assuming that there is no contraindication to MRI). Dictated by: Stephane Meza M.D. on 01/22/2022 at 18:29 Approved by: Stephane Meza M.D. on 01/22/2022 at 18:31
[2022-01-22 18:00] LABS: Add Manual Diff / Slide Review NO; Basophils Absolute Auto 100 /uL (0-100); Basophils Percent Auto 0.6 % (0-2); Eosinophils Absolute Auto 0 /uL (0-450); Eosinophils Percent Auto 0.1 % (2-4); Hematocrit 39.9 % (36-46); Hemoglobin 13.4 g/dL (12.0-16.0); Lymphocytes Absolute Auto 2300 /uL (1100-4500); Lymphocytes Percent Auto 19.2 % (25-40); Mean Corpuscular HGB Conc 33.5 % (30-36); Mean Corpuscular Hemoglobin 33.3 PG (26-34); Mean Corpuscular Volume 99.3 fL (80-100); Monocytes Absolute Auto 1000 /uL (0-900); Monocytes Percent Auto 8.7 % (3-14); Neutrophils Absolute Auto 8500 /uL (1500-7000); Neutrophils Percent Auto 71.4 % (50-75); Platelet Count 262 X10^3/uL (150-400); Red Blood Cell Count 4.02 X10^6/uL (4.0-5.2); Red Cell Distribution Width 15.9 % (11.6-14.8); White Blood Cell Count 11.9 X10^3/uL (4.5-11.0)
[2022-01-22 18:02] LABS: INR 1.1 (0.9-1.3); Prothrombin Time 12.1 SECONDS (10.1-12.7)
--- NOTE | 2022-01-22 18:04 | ED_ITS ---
HPI - Fall General Chief Complaint: Fall Stated Complaint: GLF, down 5 days?, back pain Time Seen by Provider: 01/22/22 17:49 Source: patient, EMS and other Mode of arrival: EMS History of Present Illness HPI Narrative: 71-year-old female nonsmoker with history of type 2 diabetes, prior TIA, restless leg syndrome presents by EMS with chief complaint of significant weakness and general decompensation. She states that she had been in her normal state of health until 5 days ago when she got her feet caught up underneath of her and she fell to the ground. She denies any injury such as head, neck or back, she denies any extremity injury, she denies any prodromal symptoms such as dizziness, weakness or lightheadedness. She states it was purely a clutzy moment. She was unable to get herself up off the ground and has been laying the re for the past 5 days without anything to eat or drink and has not been able to take any of her medications. A family member became concerned and called to do a welfare check and police found her on the ground. She feels a bit lightheaded and significantly weak, she is covered in urine and feces. She lives at home alone Related Data Home Medications Medication Instructions Recorded Confirmed multivitamin 1 tab PO DAILY 04/30/20 12/15/21 cholecalciferol (vitamin D3) 125 125 mcg PO DAILY 05/11/21 12/15/21 mcg (5,000 unit) capsule magnesium citrate 100 mg tablet 100 mg PO BEDTIME 10/12/21 12/15/21 biotin 10,000 mcg capsule 10,000 mcg PO 11/02/21 12/15/21 prazosin 1 mg capsule 1 mg PO 01/22/22 ziprasidone HCl 80 mg capsule 80 mg PO 01/22/22 Previous Rx's Medication Instructions Recorded indomethacin 25 mg capsule See Rx Instructions PO TID PRN 06/23/19 gout #40 caps aspirin 81 mg tablet,delayed 81 mg PO DAILY #30 tabs 05/14/20 release lisinopril 10 mg tablet See Rx Instructions .Route 07/15/21 .COMPLEX #90 tabs allopurinol 300 mg tablet See Rx Instructions .Route 08/24/21 .COMPLEX #90 tabs atorvastatin 40 mg tablet See Rx Instructions .Route 10/06/21 .COMPLEX #90 tabs levothyroxine 150 mcg tablet See Rx Instructions .Route 10/31/21 .COMPLEX #90 tabs benztropine 1 mg tablet 1 mg PO BID 90 days #180 tabs 11/07/21 divalproex 500 mg tablet,extended 1,500 mg PO BEDTIME 90 days #270 11/07/21 release 24 hr (Depakote ER) tabs fluticasone propionate 50 1 spray intranasal DAILY allergies 12/15/21 mcg/actuation nasal #16 grams spray,suspension (Flonase Allergy Relief) loratadine 10 mg tablet (Claritin) 10 mg PO DAILY PRN allergic 12/15/21 symptoms #30 tabs gabapentin 300 mg capsule 600 mg PO BID 30 days #120 caps 12/30/21 lurasidone 80 mg tablet 80 mg PO QPM #30 tabs 12/30/21 Allergies Allergy/AdvReac Type Severity Reaction Status Date / Time Sulfa (Sulfonamide Allergy Mild RASH Verified 12/15/21 14:30 Antibiotics) haloperidol [HALOPERIDOL] Allergy Unknown Verified 12/15/21 14:30 lithium [LITHIUM] Allergy Unknown Verified 12/15/21 14:30 risperidone [RISPERIDONE] Allergy Unknown Verified 12/15/21 14:30 perphenazine AdvReac uncontrolled Verified 12/15/21 14:30 hand shaking Review of Systems Review of Systems Narrative: GENERAL: See HPI HEENT: Denies sinus pain, ear pain, sore throat, difficulty swallowing, dizziness. RESPIRATORY: Denies dyspnea, cough, wheezing, hemoptysis, sputum. CARDIOVASCULAR: Denies chest pain, palpitations, orthopnea, edema, GASTROINTESTINAL: Denies nausea, vomiting, abdominal pain, diarrhea, constipation, melena. : Denies dysuria, frequency, incontinence, hematuria, urinary retention. MUSCULOSKELETAL: See HPI SKIN: Denies rash, skin lesions, or other NEUROLOGIC: See HPI PSYCHIATRIC: No concerning psychosocial issues. 12 point review of systems is negative except for those stated above Patient History Medical History Ankle pain (2007) Anxiety (1994) Bipolar 1 disorder, depressed, partial remission Bipolar 1 disorder, mixed, full remission Bipolar disorder (1989) Bipolar I disorder, most recent episode depressed, severe without psychotic features Cataract (2011) Chicken pox CTS (carpal tunnel syndrome) (1987) Depression (1961) DM type 2 (diabetes mellitus, type 2) Foot pain (~2002) Fractures (2007) Hayfever (~1989) Hyperlipidemia Hypertension Hypothyroidism Measles Peripheral neuropathy (2013) RLS (restless legs syndrome) (1999) Sleep apnea (08/2015) Urinary incontinence Surgical History Anesthesia complication History of carpal tunnel repair (~1997) History of surgery (04/2008) Family History Child Age: 50 Arthritis Mother Heart disease Family history of fraternal twins Family history of identical twins Levin gestation with first Social History marital status: number of children: 2 household members: none lives independently: Yes caregiver/support person: No housing: house pets and animals: No education level: high school occupational status: unemployed leisure activities: reading and volunteer work other: walk,garden,visit friends,pentecostalism,word puzzles seatbelt use: always water heater temp set < 120 deg: Yes working smoke detector in home: Yes fire extinguisher in home: Yes carbon monox detector in home: Yes Smoking Status: Never smoker second hand exposure: No alcohol intake: current substance use type: does not use during the past year weight has: other well-balanced diet: rarely or never daily servings fruits/ve-1 caffeine: Yes eating out: 1-3 times/week frequency: 3-4 times per week duration: 15-30 minutes/day Smoking Status: Never smoker alcohol intake frequency: holidays/special occasions only Substance Use Type: does not use Exam Narrative Exam Narrative: GENERAL: [71] year old patient appears stated age. Appears unwell, profoundly dehydrated with dry mucous membranes and poor skin turgor, resting tremor is at her baseline, she is alert and oriented, GCS 15 HEAD: Atraumatic. Normocephalic. EYES: Pupils equal round and reactive. Extraocular motions intact. No scleral icterus. No injection or drainage. ENT: Dry mucous membranes. Nose without bleeding, purulent drainage. Throat without erythema, tonsillar hypertrophy or exudate. Airway patent. NECK: Trachea midline. Non tender CARDIOVASCULAR: Tachycardic and regular rhythm without murmurs, gallops, or rubs. RESPIRATORY: Clear to auscultation. Breath sounds equal bilaterally. No wheezes, rales, or rhonchi. GASTROINTESTINAL: Abdomen soft, non-tender, nondistended. EXTREMITIES: No edema or joint tenderness. BACK: Nontender without deformity or crepitance. No flank tenderness. NEURO: AOx3. SKIN: Poor skin turgor No rash or erythema of visible areas Initial Vital Signs Initial Vital Signs: Vital Signs Pulse Rate 105 H 01/22/22 17:50 Respiratory Rate 38 H 01/22/22 17:50 Pulse Oximetry 94 01/22/22 17:50 Course Orders Ordered: ED Orders 01/22/22 17:49 CT cervical spine wo con Stat CT head/brain wo con Stat EKG-12 Lead Stat 01/22/22 17:50 Acetaminophen Stat Complete Blood Count AUTO DIFF Stat Comprehensive Metabolic Panel Stat Ethanol (ETOH) Stat Ketones (Beta-Hydroxybutyrate) Stat Lactate (Lactic Acid) Stat Partial Thromboplastin Time Stat Procalcitonin Stat Prothrombin Time INR Stat Salicylate Stat Troponin & CK Cardiac Panel Stat 01/22/22 17:51 Ammonia (NH3) Stat 01/22/22 18:06 CT chest abd pel w con Stat 01/22/22 18:21 COVID19 -Nasal RAPID/Pre-Proc Stat Urinalysis and Microscopic Stat Urine Drug Screen, Rapid Stat 01/22/22 19:40 Blood Culture Stat Sodium Chloride (Normal Saline 0.9%) 2,449.41 mls @ 816.47 mls/hr 30 ml/kg infuse over 3 hr (2449.41 ml) IV NOW ONE Stop: 01/22/22 22:05 Last Admin: 01/22/22 17:49 Dose: 816.47 mls/hr Documented By: RB Discontinued Medications Sodium Chloride (Normal Saline 0.9%) 1,000 mls @ 1,000 mls/hr IV BOLUS ONE Stop: 01/22/22 18:50 Last Admin: 01/22/22 19:09 Dose: Not Given Documented By: RB Vital Signs Vital signs: Vital Signs - 8 hr 01/22/22 17:52 01/22/22 17:50 01/22/22 18:00 Temperature 96.8 F L Pulse Rate 108 H 105 H 102 H Respiratory Rate 24 38 H 39 H Blood Pressure 174/96 H Pulse Oximetry 96 94 95 Oxygen Delivery Method Nasal Cannula Oxygen Flow Rate 2 01/22/22 18:28 01/22/22 18:28 01/22/22 18:30 Temperature 98.4 F Pulse Rate 103 H Respiratory Rate 25 H Blood Pressure 177/100 H 178/103 H Pulse Oximetry 93 Oxygen Delivery Method Oxygen Flow Rate 01/22/22 18:30 01/22/22 19:30 01/22/22 19:46 Temperature 98.6 F 98.8 F 99.0 F Pulse Rate 104 H 99 H 173 H Respiratory Rate 23 23 26 H Blood Pressure Pulse Oximetry 91 97 Oxygen Delivery Method Oxygen Flow Rate 01/22/22 19:46 01/22/22 20:00 01/22/22 20:01 Temperature 99.0 F 99.0 F Pulse Rate 94 H 93 H Respiratory Rate 21 21 Blood Pressure 203/93 H Pulse Oximetry 92 92 Oxygen Delivery Method Oxygen Flow Rate 01/22/22 20:01 01/22/22 20:30 01/22/22 20:31 Temperature 99.0 F 99.1 F Pulse Rate 92 H 92 H Respiratory Rate 21 21 Blood Pressure 179/70 H Pulse Oximetry 93 93 Oxygen Delivery Method Oxygen Flow Rate 01/22/22 20:31 01/22/22 21:00 01/22/22 21:01 Temperature 99.3 F 99.1 F Pulse Rate 144 H 190 H Respiratory Rate 26 H 24 Blood Pressure 205/82 H Pulse Oximetry 94 94 Oxygen Delivery Method Oxygen Flow Rate 01/22/22 21:01 Temperature Pulse Rate Respiratory Rate Blood Pressure 203/91 H Pulse Oximetry Oxygen Delivery Method Oxygen Flow Rate MDM - Fall Lab Data Result diagrams: 01/22/22 17:50 01/22/22 17:50 Labs: Lab Results 01/22/22 01/22/22 01/22/22 Range/Units 17:50 17:50 17:50 WBC 11.9 H (4.5-11.0) X10^3/uL RBC 4.02 (4.0-5.2) X10^6/uL Hgb 13.4 (12.0-16.0) g/dL Hct 39.9 (36-46) % MCV 99.3 (80-100) fL MCH 33.3 (26-34) PG MCHC 33.5 (30-36) % RDW 15.9 H (11.6-14.8) % Plt Count 262 (150-400) X10^3/uL Neut % (Auto) 71.4 (50-75) % Lymph % (Auto) 19.2 L (25-40) % [place] % (Auto) 8.7 (3-14) % Eos % (Auto) 0.1 L (2-4) % Baso % (Auto) 0.6 (0-2) % Neut # (Auto) 8500 H (7850-0226) /uL Lymph # (Auto) 2300 (7579-1197) /uL [place] # (Auto) 1000 H (0-900) /uL Eos # (Auto) 0 (0-450) /uL Baso # (Auto) 100 (0-100) /uL PT 12.1 (10.1-12.7) SECONDS INR 1.1 (0.9-1.3) APTT 29 (26-36) SECONDS Sodium 142 (137-145) mmol/L Potassium 4.7 (3.4-5.1) mmol/L Chloride 103 (98-107) mmol/L Carbon Dioxide 29 (22-32) mmol/L BUN 65 H (7-17) mg/dL Creatinine 1.12 H (0.52-1.04) mg/dL Estimated GFR 53 L (>60) mL/min BUN/Creatinine Ratio 58.0 H (6-22) Glucose 175 H (80-110) mg/dL Lactate (0.7-2.1) mmol/L Calcium 10.4 H (8.4-10.2) mg/dL Total Bilirubin 0.5 (0.2-1.3) mg/dL AST 51 H (14-36) IU/L ALT 30 (<35) IU/L Alkaline Phosphatase 79 (38-126) U/L Ammonia (9-30) umol/L Total Creatine Kinase 590 H (30-135) U/L CK-MB (CK-2) 4.48 H (<2.37) ng/mL CK-MB (CK-2) Rel Index 0.8 L (1.5-5.0) % Troponin I 0.016 (0.01-0.034) ng/mL Total Protein 8.0 (6.3-8.2) g/dL Albumin 4.3 (3.5-5.0) g/dL Globulin 3.7 (1.7-4.1) g/dL Albumin/Globulin Ratio 1.2 (1.0-2.8) Procalcitonin 0.16 (<0.5) ng/mL Urine Color Urine Appearance Urine pH (4.5-8.0) Ur Specific [place] (1.000-1.035) Urine Protein (Negative) Urine Glucose (UA) (Negative) g/dL Urine Ketones (NEGATIVE) Urine Occult Blood (Negative) Urine Nitrate (Negative) Urine Bilirubin (NEGATIVE) Urine Urobilinogen (0.2) E.U./dL Ur Leukocyte Esterase (NEGATIVE) Urine RBC (0-5/HPF) Urine WBC (0-5/HPF) Ur Squamous Epith Cells (0-5/HPF) Ur Renal Epithelial Cell (0-1/HPF) Urine Bacteria (None) Ur Culture Indicated? Salicylates (<20) mg/dL U Opiates 300ng/mL cut (Negative) Ur Oxycodone Screen (Negative) Urine Methadone Screen (Negative) Acetaminophen (10-30) ug/mL Ur Barbiturates Screen (Negative) U Tricyclic Antidepress (Negative) Ur Phencyclidine Scrn (Negative) Ur Amphetamines Screen (Negative) U Methamphetamines Scrn (Negative) Ur MDMA Scrn (Ecstasy) (Negative) U Benzodiazepines Scrn (Negative) Urine Cocaine Screen (Negative) U Marijuana (THC) Screen (Negative) Ethyl Alcohol ( - 10) mg/dL Ketones (<0.27) mmol/L SARS-CoV-2 (PCR) (Negative) 01/22/22 01/22/22 01/22/22 Range/Units 17:50 17:50 17:50 WBC (4.5-11.0) X10^3/uL RBC (4.0-5.2) X10^6/uL Hgb (12.0-16.0) g/dL Hct (36-46) % MCV (80-100) fL MCH (26-34) PG MCHC (30-36) % RDW (11.6-14.8) % Plt Count (150-400) X10^3/uL Neut % (Auto) (50-75) % Lymph % (Auto) (25-40) % [place] % (Auto) (3-14) % Eos % (Auto) (2-4) % Baso % (Auto) (0-2) % Neut # (Auto) (1478-7685) /uL Lymph # (Auto) (5177-3782) /uL [place] # (Auto) (0-900) /uL Eos # (Auto) (0-450) /uL Baso # (Auto) (0-100) /uL PT (10.1-12.7) SECONDS INR (0.9-1.3) APTT (26-36) SECONDS Sodium (137-145) mmol/L Potassium (3.4-5.1) mmol/L Chloride (98-107) mmol/L Carbon Dioxide (22-32) mmol/L BUN (7-17) mg/dL Creatinine (0.52-1.04) mg/dL Estimated GFR (>60) mL/min BUN/Creatinine Ratio (6-22) Glucose (80-110) mg/dL Lactate 1.6 (0.7-2.1) mmol/L Calcium (8.4-10.2) mg/dL Total Bilirubin (0.2-1.3) mg/dL AST (14-36) IU/L ALT (<35) IU/L Alkaline Phosphatase (38-126) U/L Ammonia (9-30) umol/L Total Creatine Kinase (30-135) U/L CK-MB (CK-2) (<2.37) ng/mL CK-MB (CK-2) Rel Index (1.5-5.0) % Troponin I (0.01-0.034) ng/mL Total Protein (6.3-8.2) g/dL Albumin (3.5-5.0) g/dL Globulin (1.7-4.1) g/dL Albumin/Globulin Ratio (1.0-2.8) Procalcitonin (<0.5) ng/mL Urine Color Urine Appearance Urine pH (4.5-8.0) Ur Specific [place] (1.000-1.035) Urine Protein (Negative) Urine Glucose (UA) (Negative) g/dL Urine Ketones (NEGATIVE) Urine Occult Blood (Negative) Urine Nitrate (Negative) Urine Bilirubin (NEGATIVE) Urine Urobilinogen (0.2) E.U./dL Ur Leukocyte Esterase (NEGATIVE) Urine RBC (0-5/HPF) Urine WBC (0-5/HPF) Ur Squamous Epith Cells (0-5/HPF) Ur Renal Epithelial Cell (0-1/HPF) Urine Bacteria (None) Ur Culture Indicated? Salicylates < 1.0 (<20) mg/dL U Opiates 300ng/mL cut (Negative) Ur Oxycodone Screen (Negative) Urine Methadone Screen (Negative) Acetaminophen < 10 (10-30) ug/mL Ur Barbiturates Screen (Negative) U Tricyclic Antidepress (Negative) Ur Phencyclidine Scrn (Negative) Ur Amphetamines Screen (Negative) U Methamphetamines Scrn (Negative) Ur MDMA Scrn (Ecstasy) (Negative) U Benzodiazepines Scrn (Negative) Urine Cocaine Screen (Negative) U Marijuana (THC) Screen (Negative) Ethyl Alcohol < 10 ( - 10) mg/dL Ketones 0.25 (<0.27) mmol/L SARS-CoV-2 (PCR) (Negative) 01/22/22 01/22/22 01/22/22 Range/Units 17:51 18:21 18:21 WBC (4.5-11.0) X10^3/uL RBC (4.0-5.2) X10^6/uL Hgb (12.0-16.0) g/dL Hct (36-46) % MCV (80-100) fL MCH (26-34) PG MCHC (30-36) % RDW (11.6-14.8) % Plt Count (150-400) X10^3/uL Neut % (Auto) (50-75) % Lymph % (Auto) (25-40) % [place] % (Auto) (3-14) % Eos % (Auto) (2-4) % Baso % (Auto) (0-2) % Neut # (Auto) (5951-5533) /uL Lymph # (Auto) (4559-3579) /uL [place] # (Auto) (0-900) /uL Eos # (Auto) (0-450) /uL Baso # (Auto) (0-100) /uL PT (10.1-12.7) SECONDS INR (0.9-1.3) APTT (26-36) SECONDS Sodium (137-145) mmol/L Potassium (3.4-5.1) mmol/L Chloride (98-107) mmol/L Carbon Dioxide (22-32) mmol/L BUN (7-17) mg/dL Creatinine (0.52-1.04) mg/dL Estimated GFR (>60) mL/min BUN/Creatinine Ratio (6-22) Glucose (80-110) mg/dL Lactate (0.7-2.1) mmol/L Calcium (8.4-10.2) mg/dL Total Bilirubin (0.2-1.3) mg/dL AST (14-36) IU/L ALT (<35) IU/L Alkaline Phosphatase (38-126) U/L Ammonia 16 (9-30) umol/L Total Creatine Kinase (30-135) U/L CK-MB (CK-2) (<2.37) ng/mL CK-MB (CK-2) Rel Index (1.5-5.0) % Troponin I (0.01-0.034) ng/mL Total Protein (6.3-8.2) g/dL Albumin (3.5-5.0) g/dL Globulin (1.7-4.1) g/dL Albumin/Globulin Ratio (1.0-2.8) Procalcitonin (<0.5) ng/mL Urine Color Yellow Urine Appearance Clear Urine pH 5.0 (4.5-8.0) Ur Specific [place] 1.020 (1.000-1.035) Urine Protein 2+ H (Negative) Urine Glucose (UA) Negative (Negative) g/dL Urine Ketones Negative (NEGATIVE) Urine Occult Blood 1+ H (Negative) Urine Nitrate Negative (Negative) Urine Bilirubin Negative (NEGATIVE) Urine Urobilinogen 0.2 (0.2) E.U./dL Ur Leukocyte Esterase Negative (NEGATIVE) Urine RBC 10-30/hpf H (0-5/HPF) Urine WBC 0-1/hpf (0-5/HPF) Ur Squamous Epith Cells 0-1 /hpf (0-5/HPF) Ur Renal Epithelial Cell 0-1/hpf (0-1/HPF) Urine Bacteria None seen (None) Ur Culture Indicated? Cult not indicated Salicylates (<20) mg/dL U Opiates 300ng/mL cut Negative (Negative) Ur Oxycodone Screen Negative (Negative) Urine Methadone Screen Negative (Negative) Acetaminophen (10-30) ug/mL Ur Barbiturates Screen Negative (Negative) U Tricyclic Antidepress Negative (Negative) Ur Phencyclidine Scrn Negative (Negative) Ur Amphetamines Screen Negative (Negative) U Methamphetamines Scrn Negative (Negative) Ur MDMA Scrn (Ecstasy) Negative (Negative) U Benzodiazepines Scrn Negative (Negative) Urine Cocaine Screen Negative (Negative) U Marijuana (THC) Screen Negative (Negative) Ethyl Alcohol ( - 10) mg/dL Ketones (<0.27) mmol/L SARS-CoV-2 (PCR) (Negative) 01/22/22 Range/Units 18:21 WBC (4.5-11.0) X10^3/uL RBC (4.0-5.2) X10^6/uL Hgb (12.0-16.0) g/dL Hct (36-46) % MCV (80-100) fL MCH (26-34) PG MCHC (30-36) % RDW (11.6-14.8) % Plt Count (150-400) X10^3/uL Neut % (Auto) (50-75) % Lymph % (Auto) (25-40) % [place] % (Auto) (3-14) % Eos % (Auto) (2-4) % Baso % (Auto) (0-2) % Neut # (Auto) (7488-2540) /uL Lymph # (Auto) (5178-3203) /uL [place] # (Auto) (0-900) /uL Eos # (Auto) (0-450) /uL Baso # (Auto) (0-100) /uL PT (10.1-12.7) SECONDS INR (0.9-1.3) APTT (26-36) SECONDS Sodium (137-145) mmol/L Potassium (3.4-5.1) mmol/L Chloride (98-107) mmol/L Carbon Dioxide (22-32) mmol/L BUN (7-17) mg/dL Creatinine (0.52-1.04) mg/dL Estimated GFR (>60) mL/min BUN/Creatinine Ratio (6-22) Glucose (80-110) mg/dL Lactate (0.7-2.1) mmol/L Calcium (8.4-10.2) mg/dL Total Bilirubin (0.2-1.3) mg/dL AST (14-36) IU/L ALT (<35) IU/L Alkaline Phosphatase (38-126) U/L Ammonia (9-30) umol/L Total Creatine Kinase (30-135) U/L CK-MB (CK-2) (<2.37) ng/mL CK-MB (CK-2) Rel Index (1.5-5.0) % Troponin I (0.01-0.034) ng/mL Total Protein (6.3-8.2) g/dL Albumin (3.5-5.0) g/dL Globulin (1.7-4.1) g/dL Albumin/Globulin Ratio (1.0-2.8) Procalcitonin (<0.5) ng/mL Urine Color Urine Appearance Urine pH (4.5-8.0) Ur Specific [place] (1.000-1.035) Urine Protein (Negative) Urine Glucose (UA) (Negative) g/dL Urine Ketones (NEGATIVE) Urine Occult Blood (Negative) Urine Nitrate (Negative) Urine Bilirubin (NEGATIVE) Urine Urobilinogen (0.2) E.U./dL Ur Leukocyte Esterase (NEGATIVE) Urine RBC (0-5/HPF) Urine WBC (0-5/HPF) Ur Squamous Epith Cells (0-5/HPF) Ur Renal Epithelial Cell (0-1/HPF) Urine Bacteria (None) Ur Culture Indicated? Salicylates (<20) mg/dL U Opiates 300ng/mL cut (Negative) Ur Oxycodone Screen (Negative) Urine Methadone Screen (Negative) Acetaminophen (10-30) ug/mL Ur Barbiturates Screen (Negative) U Tricyclic Antidepress (Negative) Ur Phencyclidine Scrn (Negative) Ur Amphetamines Screen (Negative) U Methamphetamines Scrn (Negative) Ur MDMA Scrn (Ecstasy) (Negative) U Benzodiazepines Scrn (Negative) Urine Cocaine Screen (Negative) U Marijuana (THC) Screen (Negative) Ethyl Alcohol ( - 10) mg/dL Ketones (<0.27) mmol/L SARS-CoV-2 (PCR) Negative (Negative) Imaging Data CT scan - head: Radiologist's Impression: Madhav Coats V?(c)??71??F??1950 ? Allergy/Adv: Sulfa (Sulfonamide Antibiotics), haloperidol, lithium, risperidone, perphenazine (More??) Close Chest/Abdomen/Pelvis CT (Signed) Stephane Meza - 01/22/[address] (Signed) Stephane Meza - 01/22/[address] (Signed) Stephane Meza - 01/22/22 Abdomen/Pelvis CT (Signed) Stephane Meza - 08/27/21 Wrist X-Ray (Signed) Les Greenfield - 05/17/[address] (Signed) Mike Guy - 04/26/21 Chest X-Ray (Signed) Trevor Garcia - 02/06/21 Hip X-Ray (Signed) Les Greenfield - 01/04/[address] (Signed) Les Greenfield - 01/04/21 Ankle X-Ray (Signed) Les Greenfield - 01/04/21 Echocardiogram Ultrasound (Signed) Kodi Alexander - 05/14/20 Telemetry Strips 05/13/[address] (Signed) Tegan Gilbert - 05/13/20 Tibia/Fibula X-Ray (Signed) Mik Wall - 03/28/19 Foot X-Ray (Signed) Mik Wall - 03/28/19 Foot X-Ray (Signed) Mik Wall - 03/28/19 Ankle X-Ray (Signed) Mik Wall - 03/28/19 DI Result 06/18/18 Echocardiogram Ultrasound (Signed) Kodi Alexander - 06/18/18 Bone Densitometry 06/18/18 DI Result CC 05/24/18 Foot X-Ray (Signed) Tramaine Acuna - 05/07/18 Foot X-Ray (Signed) Tramaine Acuna - 05/07/18 Ankle X-Ray (Signed) Tramaine Acuna - 05/07/18 Ankle X-Ray (Signed) Tramaine Acuna - 05/07/18 Launch?[address] [address] [address] Scan Report Signed Patient: Madhav Coats V MR#: [id number] : 1950 Acct:[id number] Age/Sex: 71 / F Date of Service: 01/22/22 Loc: ED Accession Number: [id number] ?? Procedure: CT head/brain wo con Ordering Provider: Rosa Isela Floyd D.O. PROCEDURE:? CT HEAD/BRAIN WO CON ? INDICATIONS:? GLF, down 5 days ? TECHNIQUE:? Noncontrast 4.5 mm thick angled axial sections acquired from the foramen magnum to the vertex, with coronal and sagittal reformats.? For radiation dose reduction, the following was used:? automated exposure control, adjustment of mA and/or kV according to patient size.? ? COMPARISON:? [facility], MR, MR BRAIN WITHOUT CONTRAST, 12/17/2020, 10:29.? [facility], CT, CT HEAD/BRAIN WO CON, 01/04/2021, 19:52.? [facility], CT, CT CHEST ABD PEL W CON, 01/22/2022, 18:46.? [facility], CT, CT CERVICAL SPINE WO CON, 01/22/2022, 18:01.? [facility], CT, CT HEAD/BRAIN WO CON, 04/26/2021, 14:44. ? FINDINGS:? Image quality:? Mild streak artifact can be seen through the skull base. ? CSF spaces:? Basal cisterns are patent.? No extra-axial fluid collections.? The ventricles are symmetric in size and shape.? ? Brain:? No intracranial bleeds or masses.? There is cerebral volume loss for age, with resultant ventricular and sulcal prominence.? There are periventricular and deep white matter chronic small vessel ischemic changes.? There is intracranial internal carotid artery atherosclerosis.? ? Skull and face:? Calvarium and visualized facial bones appear intact, without suspicious lesions.? Incidental note is made of hyperostosis frontalis. This is not considered to be pathologic in a woman of this age. ? Sinuses:? Visualized sinuses and mastoids are clear.? ? ? IMPRESSION:? No lucho intracranial abnormality can be seen for age. ? No infarction is identified. ? If there is strong clinical suspicion for an acute stroke, please consider a brain MRI for further evaluation, as it is more sensitive (assuming that there is no contraindication to MRI). ? ? Dictated by: Stephane Meza M.D. on 01/22/2022 at 18:29 ? ? Approved by: Stephane Meza M.D. on 01/22/2022 at 18:31 ? CT - cervical spine: Radiologist's Impression: Madhav Coats V?(c)??71??F??1950 ? Allergy/Adv: Sulfa (Sulfonamide Antibiotics), haloperidol, lithium, risperidone, perphenazine (More??) Close Chest/Abdomen/Pelvis CT (Signed) Stephane Meza - 01/22/[address] (Signed) Stephane Meza - 01/22/[address] (Signed) Stephane Meza - 01/22/22 Abdomen/Pelvis CT (Signed) Stephane Meza - 08/27/21 Wrist X-Ray (Signed) Les Greenfield - 05/17/[address] (Signed) Mike Guy - 04/26/21 Chest X-Ray (Signed) Trevor Garcia - 02/06/21 Hip X-Ray (Signed) Les Greenfield - 01/04/[address] (Signed) Les Greenfield - 01/04/21 Ankle X-Ray (Signed) Les Greenfield - 01/04/21 Echocardiogram Ultrasound (Signed) Kodi Alexander - 05/14/20 Telemetry Strips 05/13/[address] (Signed) Tegan Gilbert - 05/13/20 Tibia/Fibula X-Ray (Signed) Mik Wall - 03/28/19 Foot X-Ray (Signed) Mik Wall - 03/28/19 Foot X-Ray (Signed) Mik Wall - 03/28/19 Ankle X-Ray (Signed) Mik Wall - 03/28/19 DI Result 06/18/18 Echocardiogram Ultrasound (Signed) Kodi Alexander - 06/18/18 Bone Densitometry 06/18/18 DI Result CC 05/24/18 Foot X-Ray (Signed) Tramanie Acuna - 05/07/18 Foot X-Ray (Signed) Tramaine Acuna - 05/07/18 Ankle X-Ray (Signed) Tramaine Acuna - 05/07/18 Ankle X-Ray (Signed) Tramaine Acuna - 05/07/18 Launch?Image [address] [address] [address] Scan Report Signed Patient: Madhav Coats V MR#: [id number] : 1950 Acct:[id number] Age/Sex: 71 / F Date of Service: 01/22/22 Loc: ED Accession Number: [id number] ?? Procedure: CT head/brain wo con Ordering Provider: Rosa Isela Floyd D.O. PROCEDURE:? CT HEAD/BRAIN WO CON ? INDICATIONS:? GLF, down 5 days ? TECHNIQUE:? Noncontrast 4.5 mm thick angled axial sections acquired from the foramen magnum to the vertex, with coronal and sagittal reformats.? For radiation dose reduction, the following was used:? automated exposure control, adjustment of mA and/or kV according to patient size.? ? COMPARISON:? St. [facility], MR, MR BRAIN WITHOUT CONTRAST, 12/17/2020, 10:29.? [facility], CT, CT HEAD/BRAIN WO CON, 01/04/2021, 19:52.? [facility], CT, CT CHEST ABD PEL W CON, 01/22/2022, 18:46.? [facility], CT, CT CERVICAL SPINE WO CON, 01/22/2022, 18:01.? [facility], CT, CT HEAD/BRAIN WO CON, 04/26/2021, 14:44. ? FINDINGS:? Image quality:? Mild streak artifact can be seen through the skull base. ? CSF spaces:? Basal cisterns are patent.? No extra-axial fluid collections.? The ventricles are symmetric in size and shape.? ? Brain:? No intracranial bleeds or masses.? There is cerebral volume loss for age, with resultant ventricular and sulcal prominence.? There are periventricular and deep white matter chronic small vessel ischemic changes.? There is intracranial internal carotid artery atherosclerosis.? ? Skull and face:? Calvarium and visualized facial bones appear intact, without suspicious lesions.? Incidental note is made of hyperostosis frontalis. This is not considered to be pathologic in a woman of this age. ? Sinuses:? Visualized sinuses and mastoids are clear.? ? ? IMPRESSION:? No lucho intracranial abnormality can be seen for age. ? No infarction is identified. ? If there is strong clinical suspicion for an acute stroke, please consider a brain MRI for further evaluation, as it is more sensitive (assuming that there is no contraindication to MRI). ? ? Dictated by: Stephane Meza M.D. on 01/22/2022 at 18:29 ? ? Approved by: Stephane Meza M.D. on 01/22/2022 at 18:31 ? CT scan - chest: Radiologist's Impression: Madhav Coats V?(c)??71??F??1950 ? Allergy/Adv: Sulfa (Sulfonamide Antibiotics), haloperidol, lithium, risperidone, perphenazine (More??) Close Chest/Abdomen/Pelvis CT (Signed) Stephane Meza - 01/22/[address] (Signed) Stephane Meza - 01/22/[address] (Signed) Stephane Meza - 01/22/22 Abdomen/Pelvis CT (Signed) Stephane Meza - 08/27/21 Wrist X-Ray (Signed) Les Greenfield - 05/17/[address] (Signed) Mike Guy - 04/26/21 Chest X-Ray (Signed) Trevor Garcia - 02/06/21 Hip X-Ray (Signed) Les Greenfield - 01/04/[address] (Signed) Les Greenfield - 01/04/21 Ankle X-Ray (Signed) Les Greenfield - 01/04/21 Echocardiogram Ultrasound (Signed) Kodi Alexander - 05/14/20 Telemetry Strips 05/13/[address] (Signed) Tegan Gilbert - 05/13/20 Tibia/Fibula X-Ray (Signed) Mik Wall - 03/28/19 Foot X-Ray (Signed) Mik Wall - 03/28/19 Foot X-Ray (Signed) Mik Wall - 03/28/19 Ankle X-Ray (Signed) Mik Wall - 03/28/19 DI Result 06/18/18 Echocardiogram Ultrasound (Signed) Kodi Alexander - 06/18/18 Bone Densitometry 06/18/18 DI Result CC 05/24/18 Foot X-Ray (Signed) Tramaine Acuna - 05/07/18 Foot X-Ray (Signed) Tramaine Acuna - 05/07/18 Ankle X-Ray (Signed) Tramaine Acuna - 05/07/18 Ankle X-Ray (Signed) Tramaine Acuna - 05/07/18 Launch?[place] [address] CT Scan Report Signed Patient: Madhav Coats V MR#: [id number] : 1950 Acct:[id number] Age/Sex: 71 / F Date of Service: 01/22/22 Loc: ED Accession Number: [id number] ?? Procedure: CT chest abd pel w con Ordering Provider: Kendrick Gonzalez D.O. PROCEDURE:? CT CHEST ABD PEL W CON ? INDICATIONS:? trauma, unwitnessed fall, pain ? TECHNIQUE:? After the administration of intravenous contrast, 5 mm thick sections acquired from the lung apices to the symphysis.? 2.5 mm thick coronal and sagittal reformats were acquired. ?Additional 7 mm thick coronal maximum intensity projection (MIP) reformats acquired through the lungs.? Optional 10-minute delayed imaging may be performed from the kidneys to the bladder.? For radiation dose reduction, the following was used:? automated exposure control, adjustment of mA and/or kV according to patient size.? ? COMPARISON:? None. ? FINDINGS:? Image quality:? Excellent.? ? CHEST:? Lungs:? No pulmonary contusions or lacerations.? No acute airspace opacities.? No pneumothorax or hemothorax.? Central and peripheral airways appear patent and normal in caliber.? There is stable elevation of the right hemidiaphragm. ? Mediastinum:? No mediastinal hematomas.? Heart size is normal.? No pericardial effusion.? Thoracic aorta and pulmonary arteries demonstrate normal size and enhancement.? No mediastinal or hilar adenopathy.? Esophagus is normal in caliber.? No hiatal hernia.? ? Chest wall:? No rib fractures.? No subcutaneous emphysema.? No axillary or supraclavicular adenopathy.? Thyroid gland is small in size.? ? ? ABDOMEN:? Solid organs:? Liver is normal in size and enhancement, without lacerations.? Gallbladder wall is not thickened.? Biliary system is non-dilated.? Pancreas enhances normally, without transection.? Spleen is normal in size and enhancement, without lacerations.? Incidental note is made of accessory splenules along the inferior and anterior aspects of the primary spleen. No adrenal hematomas.? Both kidneys enhance normally, without hydronephrosis or lacerations.? Along the posterior right kidney, there is a simple cyst seen measuring 1.3 cm. ? Peritoneum and bowel:? There is focal wall thickening seen involving the duodenum.? The small bowel is otherwise unremarkable. There is a moderate amount of stool seen within the distal rectum.? The colon is otherwise unremarkable. No significant gastric abnormality is seen. ? Nodes and vessels:? No retroperitoneal or mesenteric adenopathy.? Aorta and inferior vena cava are normal in size and enhancement.? ? Miscellaneous:? No ventral hernias.? ? ? PELVIS:? Genitourinary:? A Teague catheter is seen, which decompresses the bladder.? There is a likely fibroid uterus.? No adnexal masses are seen.? ? ? Miscellaneous:? No inguinal hernias or adenopathy.? Mild pelvic varices can be seen on the left. ? Bones:? Pelvic ring and hip joints appear intact.? No vertebral compression fractures.? Age-appropriate bony degenerative changes are seen.? ? ? IMPRESSION:? There is focal wall thickening seen involving the duodenum.? Please correlate with inflammation versus injury. ? No displaced fracture can be seen. ? No pneumothorax. ? No solid organ injury is identified. ? ? ? Incidental note is made of: Stable elevation of the right hemidiaphragm Accessory splenules on Simple right renal cyst Likely fibroid uterus Teague catheter ? Dictated by: Stephane Meza M.D. on 01/22/2022 at 18:31 ? ? Approved by: Stephane Meza M.D. on 01/22/2022 at 18:36 ? Discharge Plan Departure Patient Disposition: Admitted as Observation Clinical Impression: Acute dehydration, Weakness, Fall Admit Date/Time: 01/22/22 21:22 Admit Provider: Alina Corcoran
[2022-01-22 18:05] LABS: PTT Partial Thromboplastin Tim 29 SECONDS (26-36)
[2022-01-22 18:06] LABS: Lactate (Lactic Acid) 1.6 mmol/L (0.7-2.1)
--- NOTE | 2022-01-22 18:06 | DI.CT.S_ITS ---
PROCEDURE: CT CHEST ABD PEL W CON INDICATIONS: trauma, unwitnessed fall, pain TECHNIQUE: After the administration of intravenous contrast, 5 mm thick sections acquired from the lung apices to the symphysis. 2.5 mm thick coronal and sagittal reformats were acquired. Additional 7 mm thick coronal maximum intensity projection (MIP) reformats acquired through the lungs. Optional 10-minute delayed imaging may be performed from the kidneys to the bladder. For radiation dose reduction, the following was used: automated exposure control, adjustment of mA and/or kV according to patient size. COMPARISON: None. FINDINGS: Image quality: Excellent. CHEST: Lungs: No pulmonary contusions or lacerations. No acute airspace opacities. No pneumothorax or hemothorax. Central and peripheral airways appear patent and normal in caliber. There is stable elevation of the right hemidiaphragm. Mediastinum: No mediastinal hematomas. Heart size is normal. No pericardial effusion. Thoracic aorta and pulmonary arteries demonstrate normal size and enhancement. No mediastinal or hilar adenopathy. Esophagus is normal in caliber. No hiatal hernia. Chest wall: No rib fractures. No subcutaneous emphysema. No axillary or supraclavicular adenopathy. Thyroid gland is small in size. ABDOMEN: Solid organs: Liver is normal in size and enhancement, without lacerations. Gallbladder wall is not thickened. Biliary system is non-dilated. Pancreas enhances normally, without transection. Spleen is normal in size and enhancement, without lacerations. Incidental note is made of accessory splenules along the inferior and anterior aspects of the primary spleen. No adrenal hematomas. Both kidneys enhance normally, without hydronephrosis or lacerations. Along the posterior right kidney, there is a simple cyst seen measuring 1.3 cm. Peritoneum and bowel: There is focal wall thickening seen involving the duodenum. The small bowel is otherwise unremarkable. There is a moderate amount of stool seen within the distal rectum. The colon is otherwise unremarkable. No significant gastric abnormality is seen. Nodes and vessels: No retroperitoneal or mesenteric adenopathy. Aorta and inferior vena cava are normal in size and enhancement. Miscellaneous: No ventral hernias. PELVIS: Genitourinary: A Teague catheter is seen, which decompresses the bladder. There is a likely fibroid uterus. No adnexal masses are seen. Miscellaneous: No inguinal hernias or adenopathy. Mild pelvic varices can be seen on the left. Bones: Pelvic ring and hip joints appear intact. No vertebral compression fractures. Age-appropriate bony degenerative changes are seen. IMPRESSION: There is focal wall thickening seen involving the duodenum. Please correlate with inflammation versus injury. No displaced fracture can be seen. No pneumothorax. No solid organ injury is identified. Incidental note is made of: Stable elevation of the right hemidiaphragm Accessory splenules on Simple right renal cyst Likely fibroid uterus Teague catheter Dictated by: Stephane Meza M.D. on 01/22/2022 at 18:31 Approved by: Stephane Meza M.D. on 01/22/2022 at 18:36
[2022-01-22 18:07] LABS: Alanine Aminotransferase 30 IU/L (<35); Albumin 4.3 g/dL (3.5-5.0); Albumin Globulin Ratio 1.2 (1.0-2.8); Alkaline Phosphatase 79 U/L (38-126); Aspartate Aminotransferase 51 IU/L (14-36); Bilirubin Total 0.5 mg/dL (0.2-1.3); Blood Urea Nitrogen 65 mg/dL (7-17); Calcium 10.4 mg/dL (8.4-10.2); Carbon Dioxide 29 mmol/L (22-32); Chloride 103 mmol/L (98-107); Creatine Kinase 590 U/L (30-135); Estimated Glomerular Filt Rate 53 mL/min (>60); Globulin 3.7 g/dL (1.7-4.1); Glucose 175 mg/dL (80-110); HEMOLYSIS < 15 (0-50); Potassium 4.7 mmol/L (3.4-5.1); Sodium 142 mmol/L (137-145)
[2022-01-22 18:18] LABS: Acetaminophen < 10 ug/mL (10-30); Salicylate < 1.0 mg/dL (<20); Troponin I 0.016 ng/mL (0.01-0.034)
[2022-01-22 18:22] LABS: CKMB % Relative Index 0.8 % (1.5-5.0); Creatine Kinase MB 4.48 ng/mL (<2.37)
[2022-01-22 18:23] LABS: Procalcitonin 0.16 ng/mL (<0.5)
--- NOTE | 2022-01-22 18:23 | PC.NURSE ---
Pt arrived via EMS after a fall, pt states she slipped and was unable to get up. pt does not have a life alert button. Pt was down for about 5 full days. 911 was dispatched for a welfare check. pt arrives alert and oriented x 3. Soiled in urine and feces, mouth appears to have dried blood on lips, pt appears to have a tremor which was stated to be normal per EMS. HR 104, BP 174/96, 94% RA with earlobe probe, RR even and unlabored. R PIV in place and fluids infusing by EMS. Lab in to draw blood. Pt given full bed bath and linen change. attached to cardiac monitoring. pt denies pain. covered in warm blankets, daughter at bedside, 16F temp sensing marino placed, temp 98.4 core. urine obtained and sent. swabbed for covid. Dr Gonzalez at bedside. Awaiting further orders.
[2022-01-22 18:35] LABS: Ethanol (ETOH) < 10 mg/dL
[2022-01-22 18:47] LABS: Appearance Urine UA CLEAR; Bilirubin Urine UA NEGATIVE (NEGATIVE); Color Urine UA YELLOW; Glucose Urine UA NEGATIVE (Negative); Ketones Urine UA NEGATIVE (NEGATIVE); Leukocyte Esterase Urine UA NEGATIVE (NEGATIVE); Nitrite Urine UA NEGATIVE (Negative); Occult Blood Urine UA 1+ (Negative); Protein Urine UA 2+ (Negative); Urobilinogen Urine UA 0.2 E.U./dL (0.2)
[2022-01-22 18:48] LABS: UR Morphine/Opiate cutoff 300 Negative (Negative); Ur Creatinine Normal (Normal); Ur Specific Gravity Normal (Normal); Urine Amphetamines Negative (Negative); Urine Barbiturates Negative (Negative); Urine Benzodiazepines Negative (Negative); Urine Cocaine Negative (Negative); Urine MDMA Negative (Negative); Urine Methadone Negative (Negative); Urine Methamphetamines Negative (Negative); Urine Oxycodone Negative (Negative); Urine Phencyclidine Negative (Negative); Urine Tetrahydrocannabinol Negative (Negative); Urine Tricyclic Antidepressant Negative (Negative); Urine pH Normal (Normal)
[2022-01-22 18:49] LABS: Ketones (Beta-Hydroxybutyrate) 0.25 mmol/L (<0.27)
[2022-01-22 19:13] LABS: COVID19 -Nasal RAPID Negative (Negative)
[2022-01-22 19:34] LABS: RBC Urine 10-30/HPF (0-5/HPF); Renal Epithelial Cells Urine 0-1/HPF (0-1/HPF); Squamous Epithelial Cell Urine 0-1 /HPF (0-5/HPF); WBC Urine 0-1/HPF (0-5/HPF)
[2022-01-22 19:35] LABS: Bacteria Urine None Seen; Culture Indicated Urine Cult Not Indicated
[2022-01-22 19:36] LABS: Ammonia (NH3) 16 umol/L (9-30)
[2022-01-23] VITALS (9 sets, daily range): BP systolic 137–168; BP diastolic 73–106; PULSE 83–104; RESP 16–28; TEMP 35.7–36.4; O2SAT 93–96
[2022-01-23] MEDS: ACETAMINOPHEN 325 MG TABLET 650 MG PO ×3 (00:38→17:48)
[2022-01-23] MEDS: GABAPENTIN 300 MG CAPSULE 600 MG PO ×3 (00:38→21:40)
[2022-01-23] MEDS: ATORVASTATIN 20 MG TABLET 40 MG PO ×2 (00:39→21:40)
[2022-01-23] MEDS: DIVALPROEX ER 250 MG TAB 1500 MG PO ×2 (00:39→21:40)
[2022-01-23] MEDS: SODIUM CHLORIDE 0.9% 1,000 ML 125 ML IV ×3 (00:40→17:49)
[2022-01-23 06:10] LABS: Add Manual Diff / Slide Review NO; Basophils Absolute Auto 100 /uL (0-100); Basophils Percent Auto 0.8 % (0-2); Eosinophils Absolute Auto 0 /uL (0-450); Eosinophils Percent Auto 0.3 % (2-4); Hematocrit 31.5 % (36-46); Hemoglobin 10.7 g/dL (12.0-16.0); Lymphocytes Absolute Auto 2700 /uL (1100-4500); Lymphocytes Percent Auto 25.5 % (25-40); Mean Corpuscular Hemoglobin 33.6 PG (26-34); Monocytes Absolute Auto 1000 /uL (0-900); Monocytes Percent Auto 9.3 % (3-14); Neutrophils Absolute Auto 6800 /uL (1500-7000); Neutrophils Percent Auto 64.1 % (50-75); Platelet Count 225 X10^3/uL (150-400); Red Blood Cell Count 3.18 X10^6/uL (4.0-5.2); Red Cell Distribution Width 15.5 % (11.6-14.8); White Blood Cell Count 10.6 X10^3/uL (4.5-11.0)
[2022-01-23 06:19] LABS: Alanine Aminotransferase 22 IU/L (<35); Albumin 3.4 g/dL (3.5-5.0); Albumin Globulin Ratio 1.2 (1.0-2.8); Alkaline Phosphatase 63 U/L (38-126); Aspartate Aminotransferase 36 IU/L (14-36); Bilirubin Total 0.2 mg/dL (0.2-1.3); Blood Urea Nitrogen 51 mg/dL (7-17); Carbon Dioxide 23 mmol/L (22-32); Chloride 111 mmol/L (98-107); Estimated Glomerular Filt Rate > 60 mL/min (>60); Globulin 2.9 g/dL (1.7-4.1); Glucose 147 mg/dL (80-110); HEMOLYSIS < 15 (0-50); Potassium 4.2 mmol/L (3.4-5.1); Sodium 142 mmol/L (137-145); Total Protein 6.3 g/dL (6.3-8.2)
[2022-01-23] MEDS: LEVOTHYROXINE 150 MCG TABLET PO (06:24)
--- NOTE | 2022-01-23 08:57 | P.HP_ITS ---
History of Present Illness History of Present Illness Date Patient Seen: 01/23/22 Chief complaint: GLF, down 5 days?, back pain Narrative: Pt is a 71yo woman with DM type 2, HTN, hypothyroidism, MARGIE, anxiety, bipolar I disorder with psychosis, and tremor who presents after being found down at home. The pt reports that she tripped on her foot when walking at home, and was unable to rise from the floor. She denies any preceding chest pain, SOB, dizziness/lightheadedness, seizure-like activity. She did not bite her tongue or have any urinary incontinence at the time. She reports that the fall was purely mechanical. She states that the only thing injured was my pride and denies any hip pain, knee pain, abdominal pain. She denies any LOC or hitting her head. She does not normally walk with a walker or cane at home, but was unable to rise or get to a phone. She reports being on the ground for 5 days, however, the pt was seen in clinic on 01/18 and brought to the ED on 01/22. She did not have anything to eat or drink when on the ground, and did not take any of her medications. A family member was unable to reach her, and contact the police to do a welfare check, which is when she was found. This morning, the pt denies any acute concerns or complaints. She states that she is feeling well overall, just tired. She denies any recent fevers, chills. She is not sure why she was unable to rise from the ground. She denies any issues with her mood or hearing any voices. Patient History Medical History Ankle pain (2007) Anxiety (1994) Bipolar 1 disorder, depressed, partial remission Bipolar 1 disorder, mixed, full remission Bipolar disorder (1989) Bipolar I disorder, most recent episode depressed, severe without psychotic features Cataract (2011) Chicken pox CTS (carpal tunnel syndrome) (1987) Depression (2) DM type 2 (diabetes mellitus, type 2) Foot pain (~2002) Fractures (2007) Hayfever (~1989) Hyperlipidemia Hypertension Hypothyroidism Measles Peripheral neuropathy (2013) RLS (restless legs syndrome) (1999) Sleep apnea (08/2015) Urinary incontinence Surgical History Anesthesia complication History of carpal tunnel repair (~1997) History of surgery (04/2008) Family & Social History Family History Child Age: 50 Arthritis Mother Heart disease Family history of fraternal twins Family history of identical twins Levin gestation with first Social History: household members none Prior Living Arrangements Apartment/Condo lives independently Yes caregiver/support person No other walk,garden,visit friends,restoration,word puzzles Safety & Behavioral: Feels Safe in Current Yes Environment Been Physically Hurt or No Threatened By a Person Tobacco & Substance use: Smoking Status Never smoker alcohol intake current alcohol intake frequency holiday/special occasion Substance Use Type does not use Meds Home Medications and Allergies Home Medications Medication Instructions Recorded Confirmed Type indomethacin 25 mg capsule See Rx Instructions PO TID PRN 06/23/19 01/22/22 Rx gout #40 caps aspirin 81 mg tablet,delayed 81 mg PO DAILY #30 tabs 05/14/20 01/22/22 Rx release cholecalciferol (vitamin D3) 125 125 mcg PO DAILY 05/11/21 01/22/22 History mcg (5,000 unit) capsule lisinopril 10 mg tablet See Rx Instructions .Route 07/15/21 01/22/22 Rx .COMPLEX #90 tabs allopurinol 300 mg tablet See Rx Instructions .Route 08/24/21 01/22/22 Rx .COMPLEX #90 tabs atorvastatin 40 mg tablet See Rx Instructions .Route 10/06/21 01/22/22 Rx .COMPLEX #90 tabs levothyroxine 150 mcg tablet See Rx Instructions .Route 10/31/21 01/22/22 Rx .COMPLEX #90 tabs benztropine 1 mg tablet 1 mg PO BID 90 days #180 tabs 11/07/21 01/22/22 Rx divalproex 500 mg tablet,extended 1,500 mg PO BEDTIME 90 days #270 11/07/21 01/22/22 Rx release 24 hr (Depakote ER) tabs gabapentin 300 mg capsule 600 mg PO BID 30 days #120 caps 12/30/21 01/22/22 Rx Allergies Allergy/AdvReac Type Severity Reaction Status Date / Time Sulfa (Sulfonamide Allergy Mild RASH Verified 12/15/21 14:30 Antibiotics) haloperidol [HALOPERIDOL] Allergy Unknown Verified 12/15/21 14:30 lithium [LITHIUM] Allergy Unknown Verified 12/15/21 14:30 risperidone [RISPERIDONE] Allergy Unknown Verified 12/15/21 14:30 perphenazine AdvReac uncontrolled Verified 12/15/21 14:30 hand shaking Exam Vital Signs (past 8 hours): - 01/23/22 04:15 Temperature 97.6 F Pulse Rate 104 H Respiratory Rate 17 Blood Pressure 163/86 H Pulse Oximetry 93 Oxygen Flow Rate 0 Oxygen Delivery Method Nasal Cannula Oxygen Flow Rate 0 Narrative Exam Narrative: GEN - alert, cooperative and no distress HEENT - normocephalic and atraumatic, sclera white, moist mucus membranes NECK - FROM, no adenopathy, no JVD HEART - RRR, S1, S2 normal, no S3 or S4, no murmurs LUNGS - symmetric chest rise, no accessory muscles, clear to auscultation bilaterally ABD - nondistended, normal bowel sounds, soft, nontender and no hepatomegaly, splenomegaly or masses EXT - no cyanosis, clubbing or edema SKIN - no rashes or suspicious lesions NEURO - no gross deficits Objective Labs Result Diagrams: 01/23/22 05:59 01/23/22 05:59 Labs: Laboratory Results - last 24 hr 01/22/22 01/22/22 01/22/22 17:50 17:50 17:50 WBC 11.9 H RBC 4.02 Hgb 13.4 Hct 39.9 MCV 99.3 MCH 33.3 MCHC 33.5 RDW 15.9 H Plt Count 262 Neut % (Auto) 71.4 Lymph % (Auto) 19.2 L [place] % (Auto) 8.7 Eos % (Auto) 0.1 L Baso % (Auto) 0.6 Neut # (Auto) 8500 H Lymph # (Auto) 2300 [place] # (Auto) 1000 H Eos # (Auto) 0 Baso # (Auto) 100 PT 12.1 INR 1.1 APTT 29 Sodium 142 Potassium 4.7 Chloride 103 Carbon Dioxide 29 BUN 65 H Creatinine 1.12 H Estimated GFR 53 L BUN/Creatinine Ratio 58.0 H Glucose 175 H Lactate Calcium 10.4 H Total Bilirubin 0.5 AST 51 H ALT 30 Alkaline Phosphatase 79 Ammonia Total Creatine Kinase 590 H CK-MB (CK-2) 4.48 H CK-MB (CK-2) Rel Index 0.8 L Troponin I 0.016 Total Protein 8.0 Albumin 4.3 Globulin 3.7 Albumin/Globulin Ratio 1.2 Procalcitonin 0.16 Urine Color Urine Appearance Urine pH Ur Specific [place] Urine Protein Urine Glucose (UA) Urine Ketones Urine Occult Blood Urine Nitrate Urine Bilirubin Urine Urobilinogen Ur Leukocyte Esterase Urine RBC Urine WBC Ur Squamous Epith Cells Ur Renal Epithelial Cell Urine Bacteria Ur Culture Indicated? Salicylates U Opiates 300ng/mL cut Ur Oxycodone Screen Urine Methadone Screen Acetaminophen Ur Barbiturates Screen U Tricyclic Antidepress Ur Phencyclidine Scrn Ur Amphetamines Screen U Methamphetamines Scrn Ur MDMA Scrn (Ecstasy) U Benzodiazepines Scrn Urine Cocaine Screen U Marijuana (THC) Screen Ethyl Alcohol Ketones SARS-CoV-2 (PCR) 01/22/22 01/22/22 01/22/22 17:50 17:50 17:50 WBC RBC Hgb Hct MCV MCH MCHC RDW Plt Count Neut % (Auto) Lymph % (Auto) [place] % (Auto) Eos % (Auto) Baso % (Auto) Neut # (Auto) Lymph # (Auto) [place] # (Auto) Eos # (Auto) Baso # (Auto) PT INR APTT Sodium Potassium Chloride Carbon Dioxide BUN Creatinine Estimated GFR BUN/Creatinine Ratio Glucose Lactate 1.6 Calcium Total Bilirubin AST ALT Alkaline Phosphatase Ammonia Total Creatine Kinase CK-MB (CK-2) CK-MB (CK-2) Rel Index Troponin I Total Protein Albumin Globulin Albumin/Globulin Ratio Procalcitonin Urine Color Urine Appearance Urine pH Ur Specific [place] Urine Protein Urine Glucose (UA) Urine Ketones Urine Occult Blood Urine Nitrate Urine Bilirubin Urine Urobilinogen Ur Leukocyte Esterase Urine RBC Urine WBC Ur Squamous Epith Cells Ur Renal Epithelial Cell Urine Bacteria Ur Culture Indicated? Salicylates < 1.0 U Opiates 300ng/mL cut Ur Oxycodone Screen Urine Methadone Screen Acetaminophen < 10 Ur Barbiturates Screen U Tricyclic Antidepress Ur Phencyclidine Scrn Ur Amphetamines Screen U Methamphetamines Scrn Ur MDMA Scrn (Ecstasy) U Benzodiazepines Scrn Urine Cocaine Screen U Marijuana (THC) Screen Ethyl Alcohol < 10 Ketones 0.25 SARS-CoV-2 (PCR) 01/22/22 01/22/22 01/22/22 17:51 18:21 18:21 WBC RBC Hgb Hct MCV MCH MCHC RDW Plt Count Neut % (Auto) Lymph % (Auto) [place] % (Auto) Eos % (Auto) Baso % (Auto) Neut # (Auto) Lymph # (Auto) [place] # (Auto) Eos # (Auto) Baso # (Auto) PT INR APTT Sodium Potassium Chloride Carbon Dioxide BUN Creatinine Estimated GFR BUN/Creatinine Ratio Glucose Lactate Calcium Total Bilirubin AST ALT Alkaline Phosphatase Ammonia 16 Total Creatine Kinase CK-MB (CK-2) CK-MB (CK-2) Rel Index Troponin I Total Protein Albumin Globulin Albumin/Globulin Ratio Procalcitonin Urine Color Yellow Urine Appearance Clear Urine pH 5.0 Ur Specific [place] 1.020 Urine Protein 2+ H Urine Glucose (UA) Negative Urine Ketones Negative Urine Occult Blood 1+ H Urine Nitrate Negative Urine Bilirubin Negative Urine Urobilinogen 0.2 Ur Leukocyte Esterase Negative Urine RBC 10-30/hpf H Urine WBC 0-1/hpf Ur Squamous Epith Cells 0-1 /hpf Ur Renal Epithelial Cell 0-1/hpf Urine Bacteria None seen Ur Culture Indicated? Cult not indicated Salicylates U Opiates 300ng/mL cut Negative Ur Oxycodone Screen Negative Urine Methadone Screen Negative Acetaminophen Ur Barbiturates Screen Negative U Tricyclic Antidepress Negative Ur Phencyclidine Scrn Negative Ur Amphetamines Screen Negative U Methamphetamines Scrn Negative Ur MDMA Scrn (Ecstasy) Negative U Benzodiazepines Scrn Negative Urine Cocaine Screen Negative U Marijuana (THC) Screen Negative Ethyl Alcohol Ketones SARS-CoV-2 (PCR) 01/22/22 01/23/22 01/23/22 18:21 05:59 05:59 WBC 10.6 RBC 3.18 L Hgb 10.7 L Hct 31.5 L MCV 99.0 MCH 33.6 MCHC 34.0 RDW 15.5 H Plt Count 225 Neut % (Auto) 64.1 Lymph % (Auto) 25.5 [place] % (Auto) 9.3 Eos % (Auto) 0.3 L Baso % (Auto) 0.8 Neut # (Auto) 6800 Lymph # (Auto) 2700 [place] # (Auto) 1000 H Eos # (Auto) 0 Baso # (Auto) 100 PT INR APTT Sodium 142 Potassium 4.2 Chloride 111 H Carbon Dioxide 23 BUN 51 H Creatinine 0.98 Estimated GFR > 60 BUN/Creatinine Ratio 52.0 H Glucose 147 H Lactate Calcium 9.0 Total Bilirubin 0.2 AST 36 ALT 22 Alkaline Phosphatase 63 Ammonia Total Creatine Kinase CK-MB (CK-2) CK-MB (CK-2) Rel Index Troponin I Total Protein 6.3 Albumin 3.4 L Globulin 2.9 Albumin/Globulin Ratio 1.2 Procalcitonin Urine Color Urine Appearance Urine pH Ur Specific [place] Urine Protein Urine Glucose (UA) Urine Ketones Urine Occult Blood Urine Nitrate Urine Bilirubin Urine Urobilinogen Ur Leukocyte Esterase Urine RBC Urine WBC Ur Squamous Epith Cells Ur Renal Epithelial Cell Urine Bacteria Ur Culture Indicated? Salicylates U Opiates 300ng/mL cut Ur Oxycodone Screen Urine Methadone Screen Acetaminophen Ur Barbiturates Screen U Tricyclic Antidepress Ur Phencyclidine Scrn Ur Amphetamines Screen U Methamphetamines Scrn Ur MDMA Scrn (Ecstasy) U Benzodiazepines Scrn Urine Cocaine Screen U Marijuana (THC) Screen Ethyl Alcohol Ketones SARS-CoV-2 (PCR) Negative Assessment & Plan Assessment & Plan narrative: Pt is a 71yo woman with DM type 2, HTN, hypothyroidism, MARGIE, anxiety, bipolar I disorder with psychosis, and tremor who presents with ground level fall and resultant acute dehydration after being down for 4 days. 1) Acute dehydration with KEM: Initially elevated creatinine, now normalized. - Continue mIVF - Encourage nutritional intake 2) Acute weakness: Unclear etiology. Negative work-up in the ED including cardiac, head/chest/abd/pelvis imaging, no evidence of infection. Pt reports not typically using her walker when at home. Unclear as to why she was unable to get to a phone after fall, etiology unknown. - PT/OT consulted today - Plan for MRI stroke protocol today 3) Bipolar Type I with psychosis: Pt with similar episodes in the past with acute dehydration and not eating/drinking for days when having psychotic episode. Do question contribution to staying down for such an extended period when does have reasonable baseline mobility. - Continue home medications - Will discuss with Psychiatry today 4) DM Type 2: Last A1C 07/2021 was 6.2, recently with excellent control. Historically diet controlled. BS at admission was elevated. - Repeat A1C with next labs - Hold treatment for now - Continue ACEi and statin 5) HTN: BP elevated however pt has been off antihypertensives as well. - Continue home Lisinopril - If next BP not improved, will increase Lisinopril dosing to 20mg 6) Hypothyroidism: Last TSH normal. 01/2022 - Continue Levothyroxine at current dosing FEN: Diabetic diet Code: Full DVT ppx: Lovenox Dispo: Pending completion of work-up as above, PT/OT brandy, discussion with psychiatry. Pt will remain hospitalized at least one additional midnight. Time Spent With Patient Critical Care time: I spent a total of [] minutes of critical care time on this patient's care today; this time is exclusive of procedural time.
[2022-01-23] MEDS: allopurinoL 300 MG TABLET PO (09:37)
[2022-01-23] MEDS: lisinopriL 10 MG TABLET PO (09:37)
[2022-01-23] MEDS: ENOXAPARIN 40 MG/0.4 ML SYRINGE SUBCUT (09:37)
[2022-01-23] MEDS: ASPIRIN EC 81 MG TABLET PO (09:37)
[2022-01-23] MEDS: BENZTROPINE 1 MG TABLET PO ×2 (09:38→21:41)
--- NOTE | 2022-01-23 10:10 | PC.WOUNDPHOT ---
left upper back
--- NOTE | 2022-01-23 10:16 | PT.IIE ---
Surgical History (Last Reviewed 01/22/22 @ 20:58 by Kendrick Gonzalez DO) Anesthesia complication History of carpal tunnel repair (~1997) History of surgery (04/2008) Medical History (Last Reviewed 01/22/22 @ 20:58 by Kendrick Gonzalez DO) Ankle pain (2007) Anxiety (1994) Bipolar 1 disorder, depressed, partial remission Bipolar 1 disorder, mixed, full remission Bipolar disorder (1989) Bipolar I disorder, most recent episode depressed, severe without psychotic features Cataract (2011) Chicken pox CTS (carpal tunnel syndrome) (1987) Depression (196) DM type 2 (diabetes mellitus, type 2) Foot pain (~2002) Fractures (2007) Hayfever (~1989) Hyperlipidemia Hypertension Hypothyroidism Measles Peripheral neuropathy (2013) RLS (restless legs syndrome) (1999) Sleep apnea (08/2015) Urinary incontinence Physical Therapy Inpatient Evaluation/Re-Eval M1 PT/OT-IP Prior Functional Status Start: 01/23/22 09:02 Freq: NEEDED Status: Active Protocol: Document 01/23/22 10:16 AW (Rec: 01/23/22 11:04 AW [id number]) Medical Review Prior Functional Status Medical History Reviewed Yes Communication Madhav is able to make her needs known. She is soft- spoken. Mobility and Gait Independent without AD. Pt has a 4WW but states she has not been using it. Activities of Daily Living and IADL's Pt states she is independent with dressing but has had increased difficulty. She uses a shower chair and grab bar for bathing. She does not drive. She gets around via bus , taxi, or her daughter. Prior Functional Level (Other details) Pt has BUE and facial tremors at baseline. She has diabetes. Most recent Hgb A1C was 6.2 Social History Household Members none Living Arrangements Apartment/Condo Number of Stairs To Enter/Railing? Pt lives in a 2nd floor apartment with an elevator for access. Home Environment High Toilet,Tub/Shower, Elevator Home Equipment Four Wheel Walker,Shower Seat with Backrest,Grab Bars In Shower Additional Social History Comment Pt lives alone in [place]. Her daughter lives in town. M2 PT-IP Current Condition Start: 01/23/22 09:02 Freq: NEEDED Status: Active Protocol: Document 01/23/22 10:16 AW (Rec: 01/23/22 11:04 AW [id number]) Physical Therapy Current Condition Current Condition Evaluation Date 01/23/22 Treatment Diagnosis GLF, down 5 days; generalized weakness, impaired mobility Onset Date 01/18/22 M3 PT-IP Subjective Start: 01/23/22 09:02 Freq: NEEDED Status: Active Protocol: Document 01/23/22 10:16 AW (Rec: 01/23/22 11:04 AW [id number]) Subjective Physical Therapy Visit Type Type Initial Evaluation Visit Start Time 09:46 Visit Stop Time 10:16 Total Visit Minutes 30 Notes Co-eval with OT Physical Therapy Visit Comments Patient Comments Pt is willing to participate with therapies. Patient Goals Improve strength, get back to independent living. Therapy Pain Assessment Pain When Pain Assessed During Mobility Pain Present Pain Present Pain Reported Location back Intensity 5 Scale Used Numeric (0 - 10) M4 PT-IP Mobility and Gait Start: 01/23/22 09:02 Freq: NEEDED Status: Active Protocol: Document 01/23/22 10:16 AW (Rec: 01/23/22 11:04 AW [id number]) PT-Bed Mobility Assessment Rolling Level of Assist Maximal Assistance,1 Person Assistance Supine to Sit Supine to Sit Maximum Assistance,1 Person Assistance,Bedrails Scooting Scooting to Edge of Bed Maximum Assistance PT-Transfer Assessment Sit to and From Stand Sit to and from Stand Moderate Assistance,1 Person Assistance,2 Person Assistance ,Use of Upper Extremities Equipment Transfer Assistive Device Gait Belt,Front Wheeled Walker Orthotic/Prosthetic Devices or Brace: No Transfers Transfer Destination Chair,Bedside Commode Transfer Technique Stand Step Pivot Transfer Ability Level of Assist Moderate Assistance,1 Person Assistance,2 Person Assistance ,Use of Upper Extremities Comments Mobility Comments Pt was lying in bed as PT and OT arrived. She needed max A to roll to her left side. RN was called to photograph buttocks/skin for chart. Mod A to complete SL to sit. Pt was unable to effectively scoot toward EOB and needed max A to scoot forward. Pt stood mod A x 1-2 with FWW for support. She leaned backward heavily in stance and needed support for weight shift and standing balance. She noted needing to have a bowel movement and completed step pivot transfer to the [facility] mod A x 2. She needed assist to don a brief and for pericare. She stood mod A x 1 and OT assisted with pericare. Pt tolerated standing 2 minutes before transferring to the chair mod A. She needed assist and cues for safety as she descended to the chair with poor control. She needed assist to scoot her hips back on the chair. Pt was left with OT for further assessment. Gait Assessment Gait Gait Assistance Required: Moderate Assistance,1 Person Assist,2 Person Assist Distance (Feet) 3 Comments Gait Comments Steps taken during transfers only. Stair Climbing Assessment Comments Stair Climbing Comments Not assessed. Pt does not use stairs at home. PT-Balance Assessment Sitting Balance and Reactions Static Sitting Balance Ability Good Dynamic Sitting Balance Ability Fair Standing Balance and Reactions Static Standing Balance Ability Poor Dynamic Standing Balance Ability Poor Device Used FWW M5 PT-IP Objective Assessments Start: 01/23/22 09:02 Freq: NEEDED Status: Active Protocol: Document 01/23/22 10:16 AW (Rec: 01/23/22 11:04 AW [id number]) Orientation Orientation/Cognition Level of Alertness Lethargic Orientation Name,Month,Year,Place, Situation Language Function Ability No Deficits Noted Safety Awareness Decreased Safety Awareness Gross Range of Motion Lower Extremity ROM Assessment Within Functional Limits Strength Upper Extremity Strength Assessment Bilaterally Impaired Lower Extremity Strength Assessment Bilaterally Impaired Hip 3+/5 Knee 4/5 Ankle 4/5 Sensation Assessment Sensation Gross Sensation WNL Muscle Tone Muscle Tone WNL No Comments Muscle Tone Comments Pt has BUE tremors (right more affected than left) and facial movements esdras to tardive dyskinesia. M6 PT-IP Treatment Start: 01/23/22 09:02 Freq: NEEDED Status: Active Protocol: Document 01/23/22 10:16 AW (Rec: 01/23/22 11:04 AW [id number]) Physical Therapy Treatment Education Education Provided Safety M7 PT-IP Assessment and Plan Start: 01/23/22 09:02 Freq: NEEDED Status: Active Protocol: Document 01/23/22 10:16 AW (Rec: 01/23/22 11:04 AW [id number]) PT Summary Assessment and Plan Potential Rehabilitation Potential Good Status of Condition at Evaluation Evolving Summary Impairments Pain,Strength,Balance, Cognition,Bed Mobility, Transfers,Gait,Activity Tolerance Assessment Summary Madhav is a 71 yo woman admitted after a fall at home resulting in five days on the ground. She lives independently. PLOF: Pt was independent with household and community mobility, modified independent with ADL's. CLOF: Pt presents with significant generalized weakness and is requiring mod-max assist x 1-2 for bed mobility and transfers with FWW. Pt requires SNF rehab at this time. Will continue to assess progress and refine discharge recommendation accordingly. Goals Bed Mobility Goal Independent Transfer Goal Independent,Front Wheeled Walker Gait Goal Independent,Front Wheel Walker Gait Distance 100 Days to Meet Goals 10 Frequency of Treatment Frequency Of Treatment Once a Day Treatment Plan Physical Therapy Treatment Plan Bed Mobility Training,Transfer Training,Gait Training, Therapeutic Exercise,Balance Retraining,Discharge Planning, Hot or Cold Pack,Neuromuscular Re-ed Precautions Other Precautions falls Recommendations To Nursing Amount of Assist Needed 2 Person Assist Discharge Recommendations PT Discharge Recommendations SNF Rehab Transportation Needs at Discharge Wheelchair/Cabulance
--- NOTE | 2022-01-23 10:21 | OT.IP.EVAL ---
Past Medical History (Last Reviewed 01/22/22 @ 20:58 by Kendrick Gonzalez DO) Ankle pain (2007) Anxiety (1994) Bipolar 1 disorder, depressed, partial remission Bipolar 1 disorder, mixed, full remission Bipolar disorder (1989) Bipolar I disorder, most recent episode depressed, severe without psychotic features Cataract (2011) Chicken pox CTS (carpal tunnel syndrome) (1987) Depression (196) DM type 2 (diabetes mellitus, type 2) Foot pain (~2002) Fractures (2007) Hayfever (~1989) Hyperlipidemia Hypertension Hypothyroidism Measles Peripheral neuropathy (2013) RLS (restless legs syndrome) (1999) Sleep apnea (08/2015) Urinary incontinence Surgical History (Last Reviewed 01/22/22 @ 20:58 by Kendrick Gonzalez DO) Anesthesia complication History of carpal tunnel repair (~1997) History of surgery (04/2008) Occupational Therapy Inpatient Evaluation/Re-Eval M1 PT/OT-IP Prior Functional Status Start: 01/23/22 09:02 Freq: NEEDED Status: Active Protocol: Document 01/23/22 11:13 CGR (Rec: 01/23/22 11:24 CGR [id number]) Medical Review Prior Functional Status Medical History Reviewed Yes Communication Madhav is able to make her needs known. She is soft- spoken. Mobility and Gait Independent without AD. Pt has a 4WW but states she has not been using it. Activities of Daily Living and IADL's Pt states she is independent with dressing but has had increased difficulty. She uses a shower chair and grab bar for bathing. She does not drive. She gets around via bus , taxi, or her daughter. Prior Functional Level (Other details) Pt has BUE and facial tremors at baseline. She has diabetes. Most recent Hgb A1C was 6.2 Social History Household Members none Living Arrangements Apartment/Condo Number of Stairs To Enter/Railing? Pt lives in a 2nd floor apartment with an elevator for access. Home Environment High Toilet,Tub/Shower, Elevator Home Equipment Four Wheel Walker,Shower Seat with Backrest,Grab Bars In Shower Additional Social History Comment Pt lives alone in [place]. Her daughter lives in town. M2 OT-IP Current Condition Start: 01/23/22 11:13 Freq: Status: Active Protocol: Document 01/23/22 11:13 CGR (Rec: 01/23/22 11:24 CGR [id number]) Occupational Therapy Current Condition Current Condition Evaluation Date 01/23/22 Treatment Diagnosis fall, down for 5 days Diagnosis Onset Date 01/22/22 M3 OT- IP Subjective and Pain Start: 01/23/22 11:13 Freq: Status: Active Protocol: Document 01/23/22 11:13 CGR (Rec: 01/23/22 11:24 CGR [id number]) OT- Subjective Occupational Therapy Visit Type Type Initial Evaluation Visit Start Time 09:47 Visit Stop Time 10:21 Total Visit Minutes 34 Notes co-treat with P.T. OT Pain Assessment Pain When Pain Assessed At Rest Pain Present Pain Present Pain Reported Location back Intensity 5 Scale Used Numeric (0 - 10) Management Techniques Distraction,Modification of Treatment,Re-positioning M4 OT- IP ADL's Start: 01/23/22 11:13 Freq: Status: Active Protocol: Document 01/23/22 11:13 CGR (Rec: 01/23/22 11:24 CGR [id number]) OT [id number] Comments OT Self-Feeding Comments not meal time OT ADL-Grooming General Evaluation Grooming Ability Total Assistance Areas Needing Assistance Face Washing Comments OT Grooming Comments Pt requests that OT wash her face. Encouraged pt to perform herself. Performed with what appeared to be minimal effort then requesting assist again. OT ADL-Oral Care Comments Oral Care Comments not performed OT ADL-Dressing General Eval Lower Body Dressing Ability Total Assistance Areas Needing Assistance Underpants/Brief,Socks Comments OT Dressing Comments brief change and socks OT ADL-Toileting General Evaluation Toileting Ability Total Assistance Areas Needing Assistance Manage Clothing,Perform Perineal Hygiene Comments OT Toileting Comments Pt had BM seated on BSC. Total assist for management of all clothing and back pericare. OT ADL-Bathing Comments OT Bathing Comments not performed M5 OT- IP IADL's Start: 01/23/22 11:13 Freq: Status: Active Protocol: Document 01/23/22 11:13 CGR (Rec: 01/23/22 11:24 CGR [id number]) OT-Instrumental Activities of Daily Living Deficits IADL Deficits Identified No Deficits Home Safety Awareness Awareness of Need for Assistance at Home Good Awareness Ability to Problem Solve Emergency Able to Problem Solve Situations Money Management Money Management Comments Concerns regarding pts ability to perform Meal Preparation Meal Preparation Comments Concerns regarding pts ability to perform Hadoop Admin Hadoop Admin Comments Concerns regarding pts ability to perform Driving Driving Comments Pt does not drive at baseline. Pt takes the bus or a taxi for all transportation. M6 OT- IP Functional Cognition Start: 01/23/22 11:13 Freq: Status: Active Protocol: Document 01/23/22 11:13 CGR (Rec: 01/23/22 11:24 CGR [id number]) Cognitive Factors Limiting Selfcare Function Cognitive Ability Level of Alertness Alert Patient Orientation Name,Age,Birthday,Month,Date, Year,Day of Week,Place, Situation Attention Span Ability Capable of Focused Attention, Capable of Sustained Attention Ability to Follow Commands Able to Follow One Step Commands with Increased Time, Able to Follow One Step Commands with Repetition OT- Vision and Hearing OT- Hearing Assessment OT- Hearing Assessment WFL OT- Vision Assessment Visual Acuity Glasses For Reading Visual Attentiveness WFL Occular Pursuits WFL M7 OT- IP Mobility and Balance Start: 01/23/22 11:13 Freq: Status: Active Protocol: Document 01/23/22 11:13 CGR (Rec: 01/23/22 11:24 CGR [id number]) OT- Bed Mobility Assessment Supine to Sit Supine to Sit Assist Maximum Assistance,2 Person Assistance Scooting Scooting to Edge of Bed Maximum Assistance,2 Person Assistance OT-Transfer Assessment Sit to and From Stand Sit to and from Stand Moderate Assistance,Maximum Assistance,1 Person Assistance ,2 Person Assistance Transfers Transfer Ability Moderate Assistance,Maximum Assistance,1 Person Assistance ,2 Person Assistance Technique Transfer Destination Bed,Bedside Commode,Chair Transfer Technique Stand Step Pivot Devices Transfer Assistive Devices Gait Belt,Front Wheeled Walker Comments Mobility Comments Pt transfered from bed to BSC then to chair. OT- Balance Assessment Sitting Balance and Reactions Static Sitting Balance Ability Good Dynamic Sitting Balance Ability Fair M8 OT- IP Objective Assessments Start: 01/23/22 11:13 Freq: Status: Active Protocol: Document 01/23/22 11:13 CGR (Rec: 01/23/22 11:24 CGR [id number]) OT Gross Range of Motion Upper Extremity Range of Motion Assessment Bilaterally Impaired ROM Impairments shlds 0-90 OT Strength Upper Extremity Strength Assessment Bilaterally Impaired Comments Strength Comments grossly 3- to 3+/5 OT- Coordination Assessment Upper Extremity Finger to Nose Test Within Functional Limits Finger Tapping Test Within Functional Limits OT-Muscle Tone Assessment Muscle Tone WNL Yes OT Sensation Assessment Edema Edema Present Edema Comments grossly swollen M9 OT- IP Assessment and Plan Start: 01/23/22 11:13 Freq: Status: Active Protocol: Document 01/23/22 11:13 CGR (Rec: 01/23/22 11:24 CGR [id number]) OT Summary Assessment and Plan Potential Rehabilitation Potential Good Analytic Complexity at Evaluation Moderate Summary OT Impairments Pain,Strength,Balance, Functional Mobility,Grooming, Dressing,Toileting,Bathing, Toilet Transfers,Shower Transfers,Activity Tolerance Progress Towards Goals Progressing Toward Goals Assessment Summary Pt presents as a moderate complexity evaluation s/p admit for fall at home and down for 5 days. Pt currently needing mod to max x 2 for mobility and max to total assist to ADLs. Pt will benefit from SNF at discharge given her current ability. Goals Self-Feeding Goal Independent Grooming Goal Independent Dressing Goal Independent Toileting Goal Independent Bathing Goal Independent Toilet Transfer Goal Independent Shower Transfer Goal Independent Days to Meet Goals 15 Frequency of Treatment Frequency Of Treatment Once a Day Treatment Plan OT Treatment Plan ADL Training,Functional Mobility,Patient/Family Education,Discharge Planning Other Treatment Recommendations and Next ADLs standing if able, LB Treatment Focus dressing training, shower when pt is more stable with mobility. Discharge Recommendations OT Discharge Recommendations SNF Rehab Transportation Needs at Discharge Wheelchair/Cabulance
--- NOTE | 2022-01-23 10:41 | CM.DANOTE ---
Addendum entered by Regi Salvador R.N. 01/23/22 15:40: Kerri called back from [facility], confirmed that she can accept. She will start [employer] auth now. Will need to follow up in the am. Addendum entered by Regi Salvador R.N. 01/23/22 15:08: Called Lyn at [facility]. Confirmed that they do accept patient's insurance, and have a 24-48 turn around time. Will fax over the referral. Spoke to Dr. Corcoran, let her know that there is not much medical for her other than IV fluids, she is aware. Asked her about MRI, stated that this is not needed, but she is consulting with Dr. Eason, since she indicated that there is no reason that patient should have not been able to get up on her own, she is normally independent. Let her know that skilled facilities have been faxed, but uncertain if any facilities can accept, so home may be the only option. Addendum entered by Regi Salvador R.N. 01/23/22 14:51: Spoke to Afia at [facility]. She did received [employer] application, but confirmed that daughter needs to fill out Medicaid prison care ester. She can keep referral for 24 hours, otherwise, will need to submit a new one after application is completed. Left a message for Dr. Corcoran, as patient may be avoidable day, she is here under OBS, at this point. May need to consider home tomorrow with home health if no facilities can accept. Will go ahead and send referral over to [facility], since patient and daughter have no preferences upon home health agencies. Will add nursing, P.T, O.T, bath aide, and CRANKSHAFT STRAIGHTENER. Addendum entered by Regi Salvador R.N. 01/23/22 13:34: Sent referrals over to [facility], [facility], and [facility]. Addendum entered by Regi Salvador R.N. 01/23/22 13:10: Met with patient's daughter, Lynne. She is overwhelmed. Confirmed that patient resides at the [facility], which is subsidized housing. She is not familiar with Medicaid, or if patient has applied. She stated that last year, her mother wanted nothing to do with her, wanted to cut her off from everything, finances, etc. Confirmed that her mom has had mental health issues for years, and if she does not take her meds, goes into psychotic episodes. Daughter is involved, is not POA. Gave her advanced directives POA paperwork. Also, gave her [facility] information and [facility] book. Gave her a Medicaid application for termite control service representative care, and encouraged her to fill it out as soon as she can. Let her know that care management can fax application when completed. [place] back from Saulo at [facility], does have some financial information available, patient brings in about $1500.00 a month with her social security. Went ahead and faxed over expidited [employer] application through [facility]. On the fax, let them know that daughter is working on termite control service representative care application. Let daughter know that home health is an option, and can include nursing and CRANKSHAFT STRAIGHTENER, along with therapy. It is noted at this time that patient is a max assist of two. Daughter works 3 jobs. Shereen is running this by her DNS to review, but unsure if she can accept. She will call back with an update. Can try other facilities as well. Addendum entered by Regi Salvador R.N. 01/23/22 11:29: Asked Shereen at [facility] if she accepts patient's insurance, stated, they aren't contracted, but still can get auth if needed. Let her know that this DC Bobbin Dumper will be having termite control service representative care conversation with her today. Asked her to review patient, she will get back to this DC Bobbin Dumper. Addendum entered by Regi Salvador R.N. 01/23/22 11:25: DaughterLynne, is at bedside. Confirmed that patient resides in a hotel here in [place]. Briefly mentioned home health, as well as prison care. Daughter indicated, I know that this is coming, and want to talk about it. Planning on meeting with daughter privately today, in the separate waiting area. Will bring in a Medicaid application for termite control service representative care, at this time, records to not show Medicaid, but do have a call out to Markell at [facility]. Will discuss resources with daughter today. P.T. will be working with patient. Original Note: DCP: Case received, EMR reviewed and met with patient. Introduced self and role. Was able to obtain some information from patient regarding her baseline activity status prior to hospitalization as well as living situation. Patient gave permission to get additional information from daughterLynne. Called daughter, she will be here shortly. DCP assessment completed with information currently available. Patient is a 71 year old female who admitted yesterday evening to the care of the hospitalist team. PCP: Dr. Corcoran. Payer: confirmed: [facility]. Patient came to the hospital via ambulance secondary to a ground level fall. Patient had tripped, fallen, was unable to get herself off of the ground. Notes indicate that patient was on the floor for about 5 days, without anything to eat or drink. Notes also indicate that a family member was worried, had police do a welfare check, that's when they found her on the ground. She was covered in urine and fecies. Notes indicate that patient lives home alone. She is here for weakness, dehydration. Patient has history of bipolar 1 with psychosis. Notes indicate that patient has had similar episodes ih the past with acute dehydration when she is having a psychotic episode. She also has history of diabetes type 2. Met briefly with patient in the room. She has already worked with [facility]. Patient was sitting up in her chair, weak. She was able to answer questions, limited. Gave permission to call daughterLynne, with further questions. Patient resides here in [place] in apartments. She uses a FWW at her baseline, and does not drive. She indicated that she takes the [employer] bus for transportation. She remembers falling. Mentioned [facility], and she stated, I will be getting one. P: DCP to continue to follow. Patient would benefit with home health, will plan on meeting with daughter today. Regi Salvador RN/Child And Youth Program Assistant Discharge Planning/Care Management CM Discharge Assessment Start: 01/23/22 10:36 Freq: Status: Active Protocol: Document 01/23/22 10:36 (Rec: 01/23/22 10:38 [id number]) Discharge Planning Assessment Assigned Fur Scraper Regi Salvador RN/Child And Youth Program Assistant Advance Directives? No History Provided By Patient,Medical Record Prior Living Arrangements Apartment/Condo Household Members none Type of transporation used prior to Relies on Others admit Comment Uses [employer] bus Caregiver for Another No DME Already Rented / Owned FWW / Walker Barriers to Discharge Yes Comment Lives alone, history of falls Transportation Arrangement Daughter Referrals Initiated Other Additional Comment Patient worked with therapy, have not yet seen notes, she is weak, at this time, unclear as to needs. Will be meeting with daughter today. Whiteboard Updated in Patient Room with Yes name and ext. # of Fur Scraper Review Status In Process Next Review Type Continued Stay Review
[2022-01-24] VITALS (8 sets, daily range): BP systolic 118–145; BP diastolic 56–79; PULSE 77–87; RESP 16–22; TEMP 35.7–37; O2SAT 93–97
[2022-01-24] MEDS: SODIUM CHLORIDE 0.9% 1,000 ML 125 ML IV ×3 (01:58→21:18)
--- NOTE | 2022-01-24 05:15 | PC.NURSE ---
Pt fully dependend on RN for feeding meds in applesauce. RN asked how pt takes care of self at home, pt stated im usually not this weak. Pt has constant tremors in BUE, stating this is her normal.
[2022-01-24] MEDS: ACETAMINOPHEN 325 MG TABLET 650 MG PO ×3 (05:45→17:36)
[2022-01-24] MEDS: LEVOTHYROXINE 150 MCG TABLET PO (05:45)
[2022-01-24 06:22] LABS: Add Manual Diff / Slide Review NO; Basophils Absolute Auto 0 /uL (0-100); Basophils Percent Auto 0.4 % (0-2); Eosinophils Absolute Auto 200 /uL (0-450); Eosinophils Percent Auto 1.9 % (2-4); Hematocrit 27.3 % (36-46); Hemoglobin 9.1 g/dL (12.0-16.0); Lymphocytes Absolute Auto 4300 /uL (1100-4500); Lymphocytes Percent Auto 39.2 % (25-40); Mean Corpuscular HGB Conc 33.4 % (30-36); Mean Corpuscular Hemoglobin 33.3 PG (26-34); Mean Corpuscular Volume 99.8 fL (80-100); Monocytes Absolute Auto 700 /uL (0-900); Monocytes Percent Auto 6.6 % (3-14); Neutrophils Absolute Auto 5600 /uL (1500-7000); Neutrophils Percent Auto 51.9 % (50-75); Platelet Count 201 X10^3/uL (150-400); Red Blood Cell Count 2.73 X10^6/uL (4.0-5.2); Red Cell Distribution Width 15.1 % (11.6-14.8); White Blood Cell Count 10.9 X10^3/uL (4.5-11.0)
[2022-01-24 06:30] LABS: Alanine Aminotransferase 18 IU/L (<35); Albumin Globulin Ratio 1.2 (1.0-2.8); Alkaline Phosphatase 56 U/L (38-126); Aspartate Aminotransferase 29 IU/L (14-36); BUN Creatinine Ratio 35.6 (6-22); Bilirubin Total 0.3 mg/dL (0.2-1.3); Blood Urea Nitrogen 31 mg/dL (7-17); Calcium 8.4 mg/dL (8.4-10.2); Carbon Dioxide 26 mmol/L (22-32); Chloride 105 mmol/L (98-107); Estimated Glomerular Filt Rate > 60 mL/min (>60); Globulin 2.6 g/dL (1.7-4.1); Glucose 129 mg/dL (80-110); HEMOLYSIS < 15 (0-50); Potassium 4.2 mmol/L (3.4-5.1); Sodium 136 mmol/L (137-145); Total Protein 5.6 g/dL (6.3-8.2)
[2022-01-24 06:51] LABS: Hemoglobin A1C% w Est Avg Glu 6.4 % (4.0-6.0)
--- NOTE | 2022-01-24 09:20 | OT.IP.TRT ---
Occupational Therapy Treatment Note M2 OT-IP Current Condition Start: 01/23/22 11:13 Freq: Status: Active Protocol: Document 01/23/22 11:13 CGR (Rec: 01/23/22 11:24 CGR [id number]) Occupational Therapy Current Condition Current Condition Evaluation Date 01/23/22 Treatment Diagnosis fall, down for 5 days Diagnosis Onset Date 01/22/22 M3 OT- IP Subjective and Pain Start: 01/23/22 11:13 Freq: Status: Active Protocol: Document 01/24/22 09:26 [facility] (Rec: 01/24/22 09:46 [facility] [id number]) OT- Subjective Occupational Therapy Visit Type Type Treatment Note Visit Start Time 08:55 Visit Stop Time 09:20 Total Visit Minutes 25 Occupational Therapy Visit Comments Patient Comments Pt agreed to get up with [employer] and OT. Patient/Caregiver Goals Pt wanting to go home but realizing that she is too weak now. OT Pain Assessment Pain When Pain Assessed At Rest Pain Present Pain Present Denied Pain M4 OT- IP ADL's Start: 01/23/22 11:13 Freq: Status: Active Protocol: Document 01/24/22 09:26 [facility] (Rec: 01/24/22 09:46 [facility] [id number]) OT [id number] Comments OT Self-Feeding Comments not meal time OT ADL-Grooming Comments OT Grooming Comments not performed OT ADL-Oral Care Comments Oral Care Comments not performed OT ADL-Dressing General Eval Lower Body Dressing Ability Total Assistance Areas Needing Assistance Underpants/Brief,Socks Comments OT Dressing Comments brief change OT ADL-Toileting General Evaluation Toileting Ability Total Assistance Areas Needing Assistance Manage Clothing,Perform Perineal Hygiene Comments OT Toileting Comments Total assist to change her brief and able to stand with MODA X 2 with FWW in front of the bed while nursing aid able to do her hygiene needs. OT ADL-Bathing Comments OT Bathing Comments sponge bath more appropriate at this time M5 OT- IP IADL's Start: 01/23/22 11:13 Freq: Status: Active Protocol: Document 01/23/22 11:13 CGR (Rec: 01/23/22 11:24 CGR [id number]) OT-Instrumental Activities of Daily Living Deficits IADL Deficits Identified No Deficits Home Safety Awareness Awareness of Need for Assistance at Home Good Awareness Ability to Problem Solve Emergency Able to Problem Solve Situations Money Management Money Management Comments Concerns regarding pts ability to perform Meal Preparation Meal Preparation Comments Concerns regarding pts ability to perform 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 Pt takes the bus or a taxi for all transportation. M6 OT- IP Functional Cognition Start: 01/23/22 11:13 Freq: Status: Active Protocol: Document 01/24/22 09:26 [facility] (Rec: 01/24/22 09:46 [facility] [id number]) Cognitive Factors Limiting Selfcare Function Cognitive Ability Level of Alertness Alert Patient Orientation Name,Age,Birthday,Month,Date, Year,Day of Week,Place, Situation Attention Span Ability Capable of Focused Attention, Capable of Sustained Attention Ability to Follow Commands Able to Follow One Step Commands with Increased Time, Able to Follow One Step Commands with Repetition Cognitive Comments Cognitive Assessment Comments Pt states does not have an adjustable bed but wanting to get up with the HOB up as she feels that she is too weak at this time to get up. However pt feels that a few day in the hospital that she will be able to take care of herself. Pt decreased insight at this time for the need for rehab, which may be affected by her being found down on on the floor for 5 days. Would be beneficial to do a formal cognitive eval when more medically stable. M7 OT- IP Mobility and Balance Start: 01/23/22 11:13 Freq: Status: Active Protocol: Document 01/24/22 09:26 [facility] (Rec: 01/24/22 09:46 [facility] [id number]) OT- Bed Mobility Assessment Supine to Sit Supine to Sit Assist Moderate Assistance,2 Person Assistance,Head of Bed Elevated Sit to Supine Sit to Supine Assist Maximum Assistance,2 Person Assistance Scooting Scooting to Edge of Bed Maximum Assistance,2 Person Assistance OT-Transfer Assessment Sit to and From Stand Sit to and from Stand Moderate Assistance,2 Person Assistance Comments Mobility Comments Pt able to stand with MODA x 2 with FWW for 50 seconds and then 3 min and 20sec. Pt unable to pick pulling machine tender her feet at this time. OT- Balance Assessment Sitting Balance and Reactions Static Sitting Balance Ability Fair Dynamic Sitting Balance Ability Poor Comments Other Balance Tests/Deviations/Treatment Pt having onto hold on the bed : rail to assist with her balance. Pt tending to lean to the right while standing on her feet with the FWW and MODA X 2. M9 OT- IP Assessment and Plan Start: 01/23/22 11:13 Freq: Status: Active Protocol: Document 01/24/22 09:26 [facility] (Rec: 01/24/22 09:46 [facility] [id number]) OT Summary Assessment and Plan Potential Rehabilitation Potential Good Analytic Complexity at Evaluation Moderate Summary OT Impairments Pain,Strength,Balance, Functional Mobility,Grooming, Dressing,Toileting,Bathing, Toilet Transfers,Shower Transfers,Activity Tolerance Progress Towards Goals Progressing Toward Goals Assessment Summary Pt is still very weak for being found down on the floor for 5 days and very motivated to get better so able to go home again. Pt needing extensive two person assist at this time. Pt will benefit from skilled rehab to help return to her prior level of being independent with her ADl and mobility needs with 4ww. Goals Self-Feeding Goal Independent Grooming Goal Independent Dressing Goal Independent Toileting Goal Independent Bathing Goal Independent Toilet Transfer Goal Independent Shower Transfer Goal Independent Days to Meet Goals 20 Frequency of Treatment Frequency Of Treatment Once a Day Treatment Plan OT Treatment Plan ADL Training,Functional Mobility,Patient/Family Education,Discharge Planning Other Treatment Recommendations and Next ADLs standing if able, LB Treatment Focus dressing training, shower when pt is more stable with mobility. Discharge Recommendations OT Discharge Recommendations SNF Rehab Transportation Needs at Discharge Wheelchair/Cabulance
--- NOTE | 2022-01-24 09:20 | PT.IPTN ---
Physical Therapy Treatment Note M2 PT-IP Current Condition Start: 01/23/22 09:02 Freq: NEEDED Status: Active Protocol: Document 01/23/22 10:16 AW (Rec: 01/23/22 11:04 AW [id number]) Physical Therapy Current Condition Current Condition Evaluation Date 01/23/22 Treatment Diagnosis GLF, down 5 days; generalized weakness, impaired mobility Onset Date 01/18/22 M3 PT-IP Subjective Start: 01/23/22 09:02 Freq: NEEDED Status: Active Protocol: Document 01/24/22 08:55 [facility] (Rec: 01/24/22 12:11 [facility] [id number]) Subjective Physical Therapy Visit Type Type Treatment Note Visit Start Time 08:55 Visit Stop Time 09:20 Total Visit Minutes 25 Notes co-treat w/ OT d/t pts needs Number of RESPIRATORY ASSISTANT Visits 1 Physical Therapy Visit Comments Patient Comments Pt is willing to participate with therapies. M4 PT-IP Mobility and Gait Start: 01/23/22 09:02 Freq: NEEDED Status: Active Protocol: Document 01/24/22 08:55 [facility] (Rec: 01/24/22 12:11 [facility] [id number]) PT-Bed Mobility Assessment Supine to Sit Supine to Sit Moderate Assistance,2 Person Assistance,Head of Bed Elevated,Bedrails Sit to Supine Sit to Supine Maximum Assistance,2 Person Assistance Scooting Scooting to Edge of Bed Maximum Assistance PT-Transfer Assessment Sit to and From Stand Sit to and from Stand Moderate Assistance,2 Person Assistance,Use of Upper Extremities Equipment Transfer Assistive Device Gait Belt,Front Wheeled Walker Orthotic/Prosthetic Devices or Brace: No Transfers Transfer Destination Bed Transfer Technique sit<>stand Transfer Ability Level of Assist Moderate Assistance,2 Person Assistance,Use of Upper Extremities Comments Mobility Comments Pt in bed upon arrival and agreeable to work with therapies. She required Mod to Max A x2 for bed mobility and Max A x2 for scooting EOB. She was able to maintain her seated balance EOB CGA to Min A. She performed leg exercises while seated EOB, but required bed rails to maintain seated balance. Pt then performed 2x sit<>stand w/ FWW w/ Mod A x2. On first attempt she stood ~50 seconds and second attempt she stood over 3 min. She had heavy lean to R side and required frequent cues for upright posture and equal weight distribution. She was unable to elevate either feet to perform marching in place. Max A x2 for sit<>sup and repositioning in bed. Gait Assessment Comments Gait Comments Unable to elevate feet from floor. Stair Climbing Assessment Comments Stair Climbing Comments Not assessed. Pt does not use stairs at home. PT-Balance Assessment Sitting Balance and Reactions Static Sitting Balance Ability Fair Dynamic Sitting Balance Ability Fair Standing Balance and Reactions Static Standing Balance Ability Poor Dynamic Standing Balance Ability Poor Device Used FWW M5 PT-IP Objective Assessments Start: 01/23/22 09:02 Freq: NEEDED Status: Active Protocol: Document 01/23/22 10:16 AW (Rec: 01/23/22 11:04 AW [id number]) Orientation Orientation/Cognition Level of Alertness Lethargic Orientation Name,Month,Year,Place, Situation Language Function Ability No Deficits Noted Safety Awareness Decreased Safety Awareness Gross Range of Motion Lower Extremity ROM Assessment Within Functional Limits Strength Upper Extremity Strength Assessment Bilaterally Impaired Lower Extremity Strength Assessment Bilaterally Impaired Hip 3+/5 Knee 4/5 Ankle 4/5 Sensation Assessment Sensation Gross Sensation WNL Muscle Tone Muscle Tone WNL No Comments Muscle Tone Comments Pt has BUE tremors (right more affected than left) and facial movements esdras to tardive dyskinesia. M6 PT-IP Treatment Start: 01/23/22 09:02 Freq: NEEDED Status: Active Protocol: Document 01/24/22 08:55 [facility] (Rec: 01/24/22 12:11 [facility] [id number]) Physical Therapy Treatment Exercises Exercises Ankle Pumps,Gluteal Sets,Quad Sets Education Education Provided Safety Other Treatments Other Treatment Performed Seated marching M7 PT-IP Assessment and Plan Start: 01/23/22 09:02 Freq: NEEDED Status: Active Protocol: Document 01/24/22 08:55 [facility] (Rec: 01/24/22 12:11 [facility] [id number]) PT Summary Assessment and Plan Potential Rehabilitation Potential Good Summary Impairments Pain,Strength,Balance, Cognition,Bed Mobility, Transfers,Gait,Activity Tolerance Progress Towards Goals Slow Progress due to Medical Issues,Slow Progress due to Activity Tolerance Assessment Summary Pt still requiring 2 person assist for mobility. Able to perform 2 sit<>stands w/ FWW, had heavy R sided lean and was unable to elevate feet from floor at all today, but w/ good effort. At this time, pt far from baseline and will require SNF to improve strength and functional mobility. Goals Bed Mobility Goal Independent Transfer Goal Independent,Front Wheeled Walker Gait Goal Independent,Front Wheel Walker Gait Distance 100 Days to Meet Goals 10 Frequency of Treatment Frequency Of Treatment Once a Day Treatment Plan Physical Therapy Treatment Plan Bed Mobility Training,Transfer Training,Gait Training, Therapeutic Exercise,Balance Retraining,Discharge Planning, Hot or Cold Pack,Neuromuscular Re-ed Other Recommendations and Next Treatment Marching in place, transfers, Focus sit<>stand Precautions Other Precautions falls Recommendations To Nursing Amount of Assist Needed 2 Person Assist Discharge Recommendations PT Discharge Recommendations SNF Rehab Transportation Needs at Discharge Wheelchair/Cabulance
[2022-01-24] MEDS: GABAPENTIN 300 MG CAPSULE 600 MG PO ×2 (09:51→20:24)
[2022-01-24] MEDS: lisinopriL 10 MG TABLET PO (09:52)
[2022-01-24] MEDS: ENOXAPARIN 40 MG/0.4 ML SYRINGE SUBCUT (09:53)
[2022-01-24] MEDS: ASPIRIN EC 81 MG TABLET PO (09:58)
[2022-01-24] MEDS: allopurinoL 300 MG TABLET PO (09:58)
[2022-01-24] MEDS: BENZTROPINE 1 MG TABLET PO ×2 (10:00→20:24)
--- NOTE | 2022-01-24 11:19 | CM.DPNOTE ---
Addendum entered by RAFA Muhammad 01/24/22 15:03: ADD: Met bedside with pt again and updated on awaiting decision of [facility] vs [facility] and bedside assessment with [facility] this afternoon and pt agreeable. ADDY provided pt's initial Medicaid application back to pt to keep for her records and updated that Medicaid application was faxed today. ADDY updated MD. BF Addendum entered by RAFA Muhammad 01/24/22 14:06: Return call from Kerri at [facility] stating they were unaware of pt's prescribed Latuda medication and is a $1500 cost to their facility and they will need to submit for prior auth from pt's insurance first before they can accept. ADDY faxed d/c packet along with Psych note stating reason for pre-auth as Sw spoke to PCP who states pt has been on Latuda for a few months already and not a new med. SW called [facility] to determine status on where prior auth for med is at, and [facility] states their DNS is now concerned with accepting pt and unclear if they can still accept. ADDY called [facility] with update and [facility] still agreeable with bedside assessment to confirm bipolar is stable and faxed the d/c packet and [facility] will likely submit for auth prior to bedside assessment as Premera can be challenging. Plan: ADDY to follow closely to determine if [facility] now [facility] or will continue accepting and [facility] bedside assessment this afternoon to determine if they will accept. BF Original Note: DCP Discharge to SNF Per MD, pt medically stable to d/c to SNF today after working with PT again this morning and remains 2PA and unable to self transfer. ADDY received a call from [facility] stating they obtained insurance auth for SNF and can accept today and will work on transport time and request updated COVID swab. ADDY met bedside with pt and Dtr and explained role and updated on above and pt and Dtr remain agreeable to d/c to [facility] today. Dtr will pack a bag for pt prior to d/c and is continuing to work on pt's Medicaid application for likely future need. Pt confirms that Psychiatrist prescribes her mental health meds and pt was admitted for Inpt MH tx within the last year and therefore her PASRR needs to be signed by MD but exempt due to less 30 days anticipated. ADDY updated RN, TRAFFIC SIGNAL TECHNICIAN and assembly line supervisor. Plan: SW to follow for transport time from [facility] and to fax d/c packet when complete. RAFA Muhammad
[2022-01-24] MEDS: MAG HYDROX/ALUM/SIMETH 30 ML UDC PO (12:12)
--- NOTE | 2022-01-24 12:53 | PM.DS.1 ---
History of Present Illness History of Present Illness Date Patient Seen: 01/24/22 Time Patient Seen: 08:00 Chief complaint: GLF, down 5 days?, back pain Narrative: Pt is a 71yo woman with DM type 2, HTN, hypothyroidism, MARGIE, anxiety, bipolar I disorder with psychosis, and tremor who presents after being found down at home. The pt reports that she tripped on her foot when walking at home, and was unable to rise from the floor. She denies any preceding chest pain, SOB, dizziness/lightheadedness, seizure-like activity. She did not bite her tongue or have any urinary incontinence at the time. She reports that the fall was purely mechanical. She states that the only thing injured was my pride and denies any hip pain, knee pain, abdominal pain. She denies any LOC or hitting her head. She does not normally walk with a walker or cane at home, but was unable to rise or get to a phone. She reports being on the ground for 5 days, however, the pt was seen in clinic on 01/18 and brought to the ED on 01/22. She did not have anything to eat or drink when on the ground, and did not take any of her medications. A family member was unable to reach her, and contact the police to do a welfare check, which is when she was found. This morning, the pt denies any acute concerns or complaints. She states that she is feeling well overall, just tired. She denies any recent fevers, chills. She is not sure why she was unable to rise from the ground. She denies any issues with her mood or hearing any voices. Discharge Providers Provider Date of admission: 01/22/22 21:22 Discharge Date: 01/24/22 Primary care physician: Alina Corcoran MD Consults: 01/22/22 22:43 Consult to Discharge Planning Routine Comment: 01/23/22 08:56 Consult to Occupational Therapy Evaluate & Treat Comment: Physician Instructions: Evaluate and treat Consult to Physical Therapy Evaluate & Treat Comment: Physician Instructions: Evaluate and Treat Discharge provider: Alina Corcoran MD Summary Hospital Course Discharge Diagnosis: Acute dehydration with KEM Acute weakness Bipolar Type I with psychosis DM Type 2 HTN Hypothyroidism Hospital Course: The pt was admitted for rehydration and weakness. She was bolused IVF and then kept in maintenance IVF, with her creatinine returning to baseline. She remained quite weak during her hospitalization, requiring 2 person assist for transfers. The pt declined MRI to rule-out CVA, believing her weakness was just due to being on the ground for so long at home. This provider does continue to question a possible psychiatric contribution to the pts presentation, as I would expect her creatinine and CK to be much higher than they were if she were without fluids and immobile for 4 days. Her case was discussed with Dr Eason, who will see the patient in outpatient follow-up on 01/31, and recommended she continue on her current medications for now including Lurasidone. No alternative medical cause was found for her weakness. She will be discharged to SNF. Status at Discharge Cognitive/behavioral status at discharge: oriented Functional status at discharge: wheelchair bound Overall status at discharge: patient is not back to baseline Exam Vital Signs (past 8 hours): - 01/24/22 08:55 01/24/22 09:52 01/24/22 12:20 Temperature 98.6 F 98.4 F Pulse Rate 87 87 77 Respiratory Rate 16 16 Blood Pressure 145/66 H 145/66 H 137/66 Pulse Oximetry 97 97 Oxygen Flow Rate 0 Oxygen Delivery Method Nasal Cannula Oxygen Flow Rate 0 Narrative Exam Narrative: GEN - alert, cooperative and no distress HEART - RRR, S1, S2 normal, no S3 or S4, no murmurs LUNGS - symmetric chest rise, no accessory muscles, clear to auscultation bilaterally ABD - nondistended, normal bowel sounds, soft, nontender and no hepatomegaly, splenomegaly or masses EXT - no edema NEURO - no gross deficits Objective Labs Result Diagrams: 01/24/22 06:04 01/24/22 06:04 Labs: Laboratory Results - last 24 hr 01/24/22 01/24/22 01/24/22 06:04 06:04 06:04 WBC 10.9 RBC 2.73 L Hgb 9.1 L Hct 27.3 L MCV 99.8 MCH 33.3 MCHC 33.4 RDW 15.1 H Plt Count 201 Neut % (Auto) 51.9 Lymph % (Auto) 39.2 [place] % (Auto) 6.6 Eos % (Auto) 1.9 L Baso % (Auto) 0.4 Neut # (Auto) 5600 Lymph # (Auto) 4300 [place] # (Auto) 700 Eos # (Auto) 200 Baso # (Auto) 0 Sodium 136 L Potassium 4.2 Chloride 105 Carbon Dioxide 26 BUN 31 H Creatinine 0.87 Estimated GFR > 60 BUN/Creatinine Ratio 35.6 H Glucose 129 H Hemoglobin A1c 6.4 H Calcium 8.4 Total Bilirubin 0.3 AST 29 ALT 18 Alkaline Phosphatase 56 Total Protein 5.6 L Albumin 3.0 L Globulin 2.6 Albumin/Globulin Ratio 1.2 PFSH Medical History Ankle pain (2007) Anxiety (1994) Bipolar 1 disorder, depressed, partial remission Bipolar 1 disorder, mixed, full remission Bipolar disorder (1989) Bipolar I disorder, most recent episode depressed, severe without psychotic features Cataract (2011) Chicken pox CTS (carpal tunnel syndrome) (1987) Depression (1961) DM type 2 (diabetes mellitus, type 2) Foot pain (~2002) Fractures (2007) Hayfever (~1989) Hyperlipidemia Hypertension Hypothyroidism Measles Peripheral neuropathy (2013) RLS (restless legs syndrome) (1999) Sleep apnea (08/2015) Urinary incontinence Surgical History Anesthesia complication History of carpal tunnel repair (~1997) History of surgery (04/2008) Family History Child Age: 50 Arthritis Mother Heart disease Family history of fraternal twins Family history of identical twins Levin gestation with first Social History marital status: number of children: 2 household members: none lives independently: Yes caregiver/support person: No housing: house pets and animals: No education level: high school occupational status: unemployed leisure activities: reading and volunteer work other: walk,garden,visit friends,voodoo,word puzzles seatbelt use: always water heater temp set < 120 deg: Yes working smoke detector in home: Yes fire extinguisher in home: Yes carbon monox detector in home: Yes Smoking Status: Never smoker second hand exposure: No alcohol intake: current substance use type: does not use during the past year weight has: other well-balanced diet: rarely or never daily servings fruits/ve-1 caffeine: Yes eating out: 1-3 times/week frequency: 3-4 times per week duration: 15-30 minutes/day Discharge Plan Discharge Plan Patient Disposition: SNF Transfer to: [facility], [facility] [place] Transportation: [place] I certify the postop hospital custodial care is medically necessary on a continuing basis for any conditions for which he/ she received care during this hospitalization.: Yes The receiving facility has agreed to accept transfer and provide medical treatment.: Yes Discharge orders & Medications Prescriptions: New lurasidone 80 mg tablet 80 mg PO QPM Qty: 30 0RF Rx Instructions: must administer with food (at least 350 calories) Continued allopurinol 300 mg tablet See Rx Instructions .ROUTE .COMPLEX Qty: 90 3RF Dose Instruction: TAKE 1 TABLET BY MOUTH DAILY FOR GOUT Rx Instructions: TAKE 1 TABLET BY MOUTH DAILY FOR GOUT cholecalciferol (vitamin D3) 125 mcg (5,000 unit) capsule 125 mcg PO DAILY benztropine 1 mg tablet 1 mg PO BID 90 Days Qty: 180 1RF divalproex [Depakote ER] 500 mg tablet extended release 24 hr 1,500 mg PO BEDTIME 90 Days Qty: 270 1RF indomethacin 25 mg capsule See Rx Instructions PO TID PRN (Reason: gout) Qty: 40 0RF Dose Instruction: Take 1 to 2 tabs three times daily for GOUT pain PO TID; administer with food or milk Rx Instructions: Take 1 to 2 tabs three times daily for GOUT pain PO three times a day PRN; lisinopril 10 mg tablet See Rx Instructions .ROUTE .COMPLEX Qty: 90 2RF Dose Instruction: TAKE 1 TABLET BY MOUTH EVERY DAY Rx Instructions: TAKE 1 TABLET BY MOUTH EVERY DAY. atorvastatin 40 mg tablet See Rx Instructions .ROUTE .COMPLEX Qty: 90 2RF Dose Instruction: TAKE 1 TABLET DAILY Rx Instructions: TAKE 1 TABLET DAILY levothyroxine 150 mcg tablet See Rx Instructions .ROUTE .COMPLEX Qty: 90 1RF Dose Instruction: TAKE 1 TABLET BY MOUTH EVERY DAY Rx Instructions: TAKE 1 TABLET BY MOUTH EVERY DAY gabapentin 300 mg capsule 600 mg PO BID MDD 1200mg 30 Days Qty: 120 2RF aspirin 81 mg Tablet,Delayed Release (Dr/Ec) 81 mg PO DAILY Qty: 30 12RF Follow up/Referrals: Alina Corcoran MD [Primary Care Provider] - 1 Month Discharge Health Status Precautions: [place] Diet/Activity/Treatments Diet: Carb-consistent/Diabetic Liquid consistency: Normal/Thin Food texture: Regular Special Rehabilitation Services Rehab type: Physical therapy and Occupational therapy Visit Report/Discharge Packet Visit Report Forms: Patient Portal/API, Stroke Signs & Symptoms Discharge Data Primary Care Provider: Alina Corcoran Attending Provider: Alina Corcoran Admit Date/Time: 01/22/22 21:22
[2022-01-24 13:01] LABS: COVID19 -Nasal RAPID Negative (Negative)
[2022-01-24] MEDS: DIVALPROEX ER 250 MG TAB 1500 MG PO (20:24)
[2022-01-24] MEDS: ATORVASTATIN 20 MG TABLET 40 MG PO (20:24)
--- NOTE | 2022-01-24 21:54 | PC.NURSE ---
Patient is alert and oriented except off on day of month by 2 days. Breath sounds CTA with RA sat of 96%; respirations are shallow. HRR. Denies nausea. BT present and had formed, brown stool on bedpan. States she has some burning with urination and is incontinent of urine; using Purewick set at 40mmHg. Unable to turn herself so is being repositioned q2h. Extremites cool to touch. Bilateral A/E puffiness. Denies pain. Had foot SCD's on at shift change and requests they be left on and declines use of calf SCD's. Fall risk score is high and bed alarm is activated.
[2022-01-25] MEDS: ACETAMINOPHEN 325 MG TABLET 650 MG PO ×3 (00:26→12:18)
[2022-01-25 03:00] VITALS: BP 136/63; PULSE 75; RESP 19; TEMP 36.1; O2SAT 94
[2022-01-25] MEDS: SODIUM CHLORIDE 0.9% 1,000 ML 125 ML IV ×2 (05:37→14:17)
[2022-01-25] MEDS: LEVOTHYROXINE 150 MCG TABLET PO (06:00)
[2022-01-25 07:33] VITALS: BP 144/78; PULSE 72; RESP 18; TEMP 35.8; O2SAT 95
--- NOTE | 2022-01-25 08:57 | P.PN_ITS ---
Subjective Subjective Date Patient Seen: 01/25/22 Time Patient Seen: 08:57 Interval history: Patient doing well. Patient's discharge was held yesterday because of m edication questions. Concerns about patient being on Latuda at the time of discharge and the cost. Discussion with patient this morning about the to this she says she is not going to take the medication she does not like the tremors. She says she is going to stop this. We discussed with her that we need to contact Psychiatry to see if they have an alternative her this needs to be tapered down or have a replacement. She was in agreement with that but she says no matter what she will take the medication anymore. Exam Vital Signs (past 8 hours): - 01/25/22 03:00 01/25/22 07:33 Temperature 97.0 F L 96.5 F L Pulse Rate 75 72 Respiratory Rate 19 18 Blood Pressure 136/63 144/78 H Pulse Oximetry 94 95 Oxygen Flow Rate 0 0 Oxygen Delivery Method Room Air Oxygen Flow Rate 0 Narrative Exam Narrative: Gen.: Alert and oriented x3 no apparent distress. HEENT: NCAT PERRLA tympanic membranes are clear nares are patent oral mucosa is moist no tonsillar hypertrophy neck is supple without lymphadenopathy no thyroid enlargement. Cardio: S1-S2 regular rate and rhythm no murmurs appreciated. Respiratory: Lungs are clear to auscultation no wheezes or crackles normal respiratory effort. Abdomen: Soft nontender no rebound or guarding no liver spleen enlargement no appreciable hernias Extremities: Full range of motion no appreciable weakness no cyanosis or edema. Neurologic: Grossly intact. Objective Labs Result Diagrams: 01/24/22 06:04 01/24/22 06:04 Labs: Laboratory Results - last 24 hr 01/24/22 12:27 SARS-CoV-2 (PCR) Negative FOR[facility]LY [facility], 1928–1983 Medical History Ankle pain (2007) Anxiety (1994) Bipolar 1 disorder, depressed, partial remission Bipolar 1 disorder, mixed, full remission Bipolar disorder (1989) Bipolar I disorder, most recent episode depressed, severe without psychotic fe atures Cataract (2011) Chicken pox CTS (carpal tunnel syndrome) (1987) Depression (1961) DM type 2 (diabetes mellitus, type 2) Foot pain (~2002) Fractures (2007) Hayfever (~1989) Hyperlipidemia Hypertension Hypothyroidism Measles Peripheral neuropathy (2013) RLS (restless legs syndrome) (1999) Sleep apnea (08/2015) Urinary incontinence Surgical History Anesthesia complication History of carpal tunnel repair (~1997) History of surgery (04/2008) Family History Child Age: 50 Arthritis Mother Heart disease Family history of fraternal twins Family history of identical twins Levin gestation with first Social History marital status: number of children: 2 household members: none lives independently: Yes caregiver/support person: No housing: house pets and animals: No education level: high school occupational status: unemployed leisure activities: reading and volunteer work other: walk,garden,visit friends,amish,word puzzles seatbelt use: always water heater temp set < 120 deg: Yes working smoke detector in home: Yes fire extinguisher in home: Yes carbon monox detector in home: Yes Smoking Status: Never smoker second hand exposure: No alcohol intake: current substance use type: does not use during the past year weight has: other well-balanced diet: rarely or never daily servings fruits/ve-1 caffeine: Yes eating out: 1-3 times/week frequency: 3-4 times per week duration: 15-30 minutes/day Assessment & Plan Assessment and plan (1) Manic disorder, recurrent episode, severe, with psychotic behavior: Problem details: Dec 2020 - Apr 2021 multiple inpatient admits Status: Acute Plan Patient refusing to take Latuda anymore will go ahead and stop this medication. Discussed with the psychiatry to see if there is an alternative that may benefit the patient or we can monitor as outpatient. Discussed risks benefits with the patient about taking this medication and stopping automatically. Will see if there is a safe reduction plan for the patient or an alternative that will work. If we can come up with a solution she will be [facility]. Time Spent With Patient Critical Care time: I spent a total of [] minutes of critical care time on this patient's care today ; this time is exclusive of procedural time.
[2022-01-25] MEDS: ASPIRIN EC 81 MG TABLET PO (09:03)
[2022-01-25] MEDS: lisinopriL 10 MG TABLET PO (09:03)
[2022-01-25] MEDS: allopurinoL 300 MG TABLET PO (09:03)
[2022-01-25] MEDS: BENZTROPINE 1 MG TABLET PO ×2 (09:04→21:08)
[2022-01-25] MEDS: GABAPENTIN 300 MG CAPSULE 600 MG PO ×2 (09:04→21:08)
[2022-01-25] MEDS: ENOXAPARIN 40 MG/0.4 ML SYRINGE SUBCUT (09:04)
--- NOTE | 2022-01-25 10:59 | PC.NURSE ---
Addendum entered by Tara Rodney R.N. 01/25/22 18:49: Patient has denied any further burning upon urination, she is napping at this time. Original Note: Assess- Patient is alert and oriented x4. She denies pain. BS cta, 90s ra. Patient has been using the bedpan to void. She states that she has a bit of burning upon urination. Will see if patient had a u/a done. She will be going to a SNF, awaiting to see what plan is. She has some abrasions and bruising from her fall. Patient is sleeping now.
--- NOTE | 2022-01-25 13:15 | OT.IP.TRT ---
Current Diagnoses Bipolar disorder, current episode manic severe with psychotic features (01/22/22) Acute kidney failure, unspecified (01/22/22) Occupational Therapy Treatment Note M2 OT-IP Current Condition Start: 01/23/22 11:13 Freq: Status: Active Protocol: Document 01/23/22 11:13 CGR (Rec: 01/23/22 11:24 CGR [id number]) Occupational Therapy Current Condition Current Condition Evaluation Date 01/23/22 Treatment Diagnosis fall, down for 5 days Diagnosis Onset Date 01/22/22 M3 OT- IP Subjective and Pain Start: 01/23/22 11:13 Freq: Status: Active Protocol: Document 01/25/22 12:59 [facility] (Rec: 01/25/22 14:07 [facility] [id number]) OT- Subjective Occupational Therapy Visit Type Type Treatment Note Visit Start Time 12:59 Visit Stop Time 13:15 Total Visit Minutes 16 Occupational Therapy Visit Comments Patient Comments Pt agreed to try to get up, THERMODYNAMIC PHYSICIST and nursing aid present due to pt needing extensive assist for mobility needs at this time. Patient/Caregiver Goals Pt wanting to go home but realizing that she is too weak now and may have to go to skilled rehab. M4 OT- IP ADL's Start: 01/23/22 11:13 Freq: Status: Active Protocol: Document 01/25/22 12:59 [facility] (Rec: 01/25/22 14:07 [facility] [id number]) OT ADL-Grooming Comments OT Grooming Comments Pt not wanting to perform at this time. OT ADL-Oral Care Comments Oral Care Comments Pt too tired to attempt. M5 OT- IP IADL's Start: 01/23/22 11:13 Freq: Status: Active Protocol: Document 01/23/22 11:13 CGR (Rec: 01/23/22 11:24 CGR [id number]) OT-Instrumental Activities of Daily Living Deficits IADL Deficits Identified No Deficits Home Safety Awareness Awareness of Need for Assistance at Home Good Awareness Ability to Problem Solve Emergency Able to Problem Solve Situations Money Management Money Management Comments Concerns regarding pts ability to perform Meal Preparation Meal Preparation Comments Concerns regarding pts ability to perform Filteration Operator Filteration Operator Comments Concerns regarding pts ability to perform Driving Driving Comments Pt does not drive at baseline. Pt takes the bus or a taxi for all transportation. M6 OT- IP Functional Cognition Start: 01/23/22 11:13 Freq: Status: Active Protocol: Document 01/25/22 12:59 [facility] (Rec: 01/25/22 14:07 [facility] [id number]) Cognitive Factors Limiting Selfcare Function Cognitive Comments Cognitive Assessment Comments Pt able to follow commands as pt insisting to have the FWW in front of her so able to stand. M7 OT- IP Mobility and Balance Start: 01/23/22 11:13 Freq: Status: Active Protocol: Document 01/25/22 12:59 [facility] (Rec: 01/25/22 14:07 [facility] [id number]) OT- Bed Mobility Assessment Supine to Sit Supine to Sit Assist Moderate Assistance,2 Person Assistance,Head of Bed Elevated Sit to Supine Sit to Supine Assist Maximum Assistance,2 Person Assistance Scooting Scooting to Edge of Bed Maximum Assistance,2 Person Assistance OT-Transfer Assessment Sit to and From Stand Sit to and from Stand Moderate Assistance,2 Person Assistance Comments Mobility Comments Pt today able to stand with MODA X2 with FWW and take a few side steps to the head of the bed with leaning to the right and posteriorly. OT- Balance Assessment Sitting Balance and Reactions Static Sitting Balance Ability Fair Dynamic Sitting Balance Ability Poor Comments Other Balance Tests/Deviations/Treatment Pt a little more unsteady with : sitting balance today and needing CGA to close SBA and holding to bedrail for assist. Pt's feet however not able o touch the floor as hospital bed too high for the pt. M8 OT- IP Objective Assessments Start: 01/23/22 11:13 Freq: Status: Active Protocol: Document 01/23/22 11:13 CGR (Rec: 01/23/22 11:24 CGR [id number]) OT Gross Range of Motion Upper Extremity Range of Motion Assessment Bilaterally Impaired ROM Impairments shlds 0-90 OT Strength Upper Extremity Strength Assessment Bilaterally Impaired Comments Strength Comments grossly 3- to 3+/5 OT- Coordination Assessment Upper Extremity Finger to Nose Test Within Functional Limits Finger Tapping Test Within Functional Limits OT-Muscle Tone Assessment Muscle Tone WNL Yes OT Sensation Assessment Edema Edema Present Edema Comments grossly swollen M9 OT- IP Assessment and Plan Start: 01/23/22 11:13 Freq: Status: Active Protocol: Document 01/25/22 12:59 [facility] (Rec: 01/25/22 14:07 [facility] [id number]) OT Summary Assessment and Plan Potential Rehabilitation Potential Good Analytic Complexity at Evaluation Moderate Summary OT Impairments Pain,Strength,Balance, Functional Mobility,Grooming, Dressing,Toileting,Bathing, Toilet Transfers,Shower Transfers,Activity Tolerance Progress Towards Goals Progressing Toward Goals,Slow Progress due to Activity Tolerance Assessment Summary Pt today able to take a few side steps to the head of the bed. Pt still needing two person assist for mobility needs and will greatly benefit from skilled rehab. Goals Self-Feeding Goal Independent Grooming Goal Independent Dressing Goal Independent Toileting Goal Independent Bathing Goal Independent Toilet Transfer Goal Independent Shower Transfer Goal Independent Days to Meet Goals 15 Frequency of Treatment Frequency Of Treatment Once a Day Treatment Plan OT Treatment Plan ADL Training,Functional Mobility,Patient/Family Education,Discharge Planning Other Treatment Recommendations and Next ADLs standing if able, LB Treatment Focus dressing training, shower when pt is more stable with mobility. Discharge Recommendations OT Discharge Recommendations SNF Rehab Transportation Needs at Discharge Wheelchair/Cabulance
--- NOTE | 2022-01-25 13:15 | PT.IPTN ---
Current Diagnoses Bipolar disorder, current episode manic severe with psychotic features (01/22/22) Acute kidney failure, unspecified (01/22/22) Physical Therapy Treatment Note M2 PT-IP Current Condition Start: 01/23/22 09:02 Freq: NEEDED Status: Active Protocol: Document 01/23/22 10:16 AW (Rec: 01/23/22 11:04 AW [id number]) Physical Therapy Current Condition Current Condition Evaluation Date 01/23/22 Treatment Diagnosis GLF, down 5 days; generalized weakness, impaired mobility Onset Date 01/18/22 M3 PT-IP Subjective Start: 01/23/22 09:02 Freq: NEEDED Status: Active Protocol: Document 01/25/22 12:59 KS (Rec: 01/25/22 13:45 KS [id number]) Subjective Physical Therapy Visit Type Type Treatment Note Visit Start Time 12:59 Visit Stop Time 13:15 Total Visit Minutes 16 Notes co-treat w/ OT d/t pts needs Number of RESEARCH AGRICULTURAL ENGINEER Visits 2 Physical Therapy Visit Comments Patient Comments Pt is willing to participate with therapies. M4 PT-IP Mobility and Gait Start: 01/23/22 09:02 Freq: NEEDED Status: Active Protocol: Document 01/25/22 12:59 [facility] (Rec: 01/25/22 13:45 [facility] [id number]) PT-Bed Mobility Assessment Supine to Sit Supine to Sit Moderate Assistance,Maximum Assistance,2 Person Assistance ,Head of Bed Elevated,Bedrails Sit to Supine Sit to Supine Maximum Assistance,2 Person Assistance Scooting Scooting to Edge of Bed Maximum Assistance PT-Transfer Assessment Sit to and From Stand Sit to and from Stand Moderate Assistance,2 Person Assistance,Use of Upper Extremities Equipment Transfer Assistive Device Gait Belt,Front Wheeled Walker Orthotic/Prosthetic Devices or Brace: No Transfers Transfer Destination Bed Transfer Technique Lateral steps towards HOB Transfer Ability Level of Assist Moderate Assistance,2 Person Assistance,Use of Upper Extremities Comments Mobility Comments Pt in bed upon arrival and agreeable to work w/ therapies . Pt able to move BLE towards EOB minimally, but ultimately required Mod to Max A for sup< >sit and Max A for scooting EOB. Pt relies on bed handle to maintain seated balance. Pt performed sit<>stand w/ FWW Mod A x2 w/ cues for sequencing and hand placement. Upon standing pt had posterior and lateral lean to R side, requiring Mod A to maintain standing balance and cues, pt able to correct for short amounts of time following verbal and tactile cues. Able to progress to take very small side steps towards HOB w/ FWW mgmt and minimal ground clearance. Pt reported fatigue and requested to sit down. Refused further OOB mobility due to fatigue, required Max A x2 for sit<>sup and repositioning in bed. Gait Assessment Gait Gait Assistance Required: Moderate Assistance,2 Person Assist Distance (Feet) 2 Assistive Devices Assistive Device Front Wheeled Walker Orthotic/Prosthetic Devices or Brace: No Gait Deviations General Gait Pattern Decreased Stride Length, Decreased Feet Clearance, Lateral Trunk Lean Factors Limiting Gait Function Factors Limiting Gait Function Decreased Activity Tolerance, Decreased Strength,Difficulty Following Directions, Incoordination,Limited Range of Motion,Poor Balance,Poor Safety Awareness Comments Gait Comments Refer to mobility section for details. Stair Climbing Assessment Comments Stair Climbing Comments Not assessed. Pt does not use stairs at home. PT-Balance Assessment Sitting Balance and Reactions Static Sitting Balance Ability Fair Dynamic Sitting Balance Ability Fair Standing Balance and Reactions Static Standing Balance Ability Poor Dynamic Standing Balance Ability Poor Device Used FWW M5 PT-IP Objective Assessments Start: 01/23/22 09:02 Freq: NEEDED Status: Active Protocol: Document 01/23/22 10:16 AW (Rec: 01/23/22 11:04 AW [id number]) Orientation Orientation/Cognition Level of Alertness Lethargic Orientation Name,Month,Year,Place, Situation Language Function Ability No Deficits Noted Safety Awareness Decreased Safety Awareness Gross Range of Motion Lower Extremity ROM Assessment Within Functional Limits Strength Upper Extremity Strength Assessment Bilaterally Impaired Lower Extremity Strength Assessment Bilaterally Impaired Hip 3+/5 Knee 4/5 Ankle 4/5 Sensation Assessment Sensation Gross Sensation WNL Muscle Tone Muscle Tone WNL No Comments Muscle Tone Comments Pt has BUE tremors (right more affected than left) and facial movements esdras to tardive dyskinesia. M6 PT-IP Treatment Start: 01/23/22 09:02 Freq: NEEDED Status: Active Protocol: Document 01/25/22 12:59 KS (Rec: 01/25/22 13:45 KS [id number]) Physical Therapy Treatment Education Education Provided Safety M7 PT-IP Assessment and Plan Start: 01/23/22 09:02 Freq: NEEDED Status: Active Protocol: Document 01/25/22 12:59 KS (Rec: 01/25/22 13:45 KS [id number]) PT Summary Assessment and Plan Potential Rehabilitation Potential Good Summary Impairments Pain,Strength,Balance, Cognition,Bed Mobility, Transfers,Gait,Activity Tolerance Progress Towards Goals Slow Progress due to Medical Issues,Slow Progress due to Activity Tolerance Assessment Summary Pt still requires 2 person assist for bed mobility, sit to stands w/ FWW, and transfers. She was able to take a few very small steps towards HOB today w/ FWW but required Mod A x2 and cues for FWW mgmt. She leans towards R side and posteriorly when standing and needs Mod A to maintain balance. Unable to progress gait further due to weakness and quick approach to fatigue. She will require SNF to improve strength and mobility independence. Goals Bed Mobility Goal Independent Transfer Goal Independent,Front Wheeled Walker Gait Goal Independent,Front Wheel Walker Gait Distance 100 Days to Meet Goals 10 Frequency of Treatment Frequency Of Treatment Once a Day Treatment Plan Physical Therapy Treatment Plan Bed Mobility Training,Transfer Training,Gait Training, Therapeutic Exercise,Balance Retraining,Discharge Planning, Hot or Cold Pack,Neuromuscular Re-ed Other Recommendations and Next Treatment Marching in place, transfers, Focus sit<>stand, ambulation if able Precautions Other Precautions falls Recommendations To Nursing Amount of Assist Needed 2 Person Assist Discharge Recommendations PT Discharge Recommendations SNF Rehab Transportation Needs at Discharge Wheelchair/Cabulance
[2022-01-25 13:25] VITALS: BP 141/68; PULSE 88; RESP 18; TEMP 36.1; O2SAT 94
--- NOTE | 2022-01-25 15:31 | CM.DPC ---
DCP Ongoing SNF attempts Per MD, consulted again with Dr. Eason Psychiatrist regarding the barrier to SNF being Latuda. Recommendation is to do a 4 week taper of Latuda and adding Olanzepine at the start. ADDY reached out to [facility], [facility], [facility] again and all 3 decline accepting pt due to the complexity and the cost of Latuda and inability to allow pt to bring her own home rx of Latuda. SW met bedside with pt who states she started her own taper of Latuda weeks ago and had last dose 7 days before admission to the hospital and states she has no side effects from stopping. Per MD, preference would be following best practice of tapering pt's medication but if barrier to getting pt the tx she needs at SNF then last resort would be to remove Latuda from her med list and just initiate Olanzeprine. SW called [facility] and [facility] and left another msg inquiring if they would please accept without Latuda in the med list and inexpensive Olanzeprine and d/c tomorrow. Plan: ADDY to follow in the AM with both [facility] and [facility] to confirm if either can accept as [facility] had obtained insurance auth for SNF on 01/24/22 already. RAFA Muhammad
[2022-01-25 17:10] VITALS: BP 144/71; PULSE 72; RESP 18; TEMP 36; O2SAT 96
[2022-01-25 20:31] VITALS: BP 144/84; PULSE 81; RESP 18; TEMP 36.1; O2SAT 95
[2022-01-25] MEDS: DIVALPROEX ER 250 MG TAB 1500 MG PO (21:08)
[2022-01-25] MEDS: ATORVASTATIN 20 MG TABLET 40 MG PO (21:08)
[2022-01-26] MEDS: ACETAMINOPHEN 325 MG TABLET 650 MG PO ×3 (01:16→12:12)
[2022-01-26 02:22] VITALS: BP 138/55; PULSE 80; RESP 16; TEMP 36.4; O2SAT 95
[2022-01-26] MEDS: LEVOTHYROXINE 150 MCG TABLET PO (06:10)
[2022-01-26 07:00] VITALS: O2SAT 93
--- NOTE | 2022-01-26 07:40 | PM.PN.1 ---
Subjective Subjective Date Patient Seen: 01/26/22 Time Patient Seen: 07:40 Interval history: Patient stable doing well today. Discussed discharge plan with patient. Ready for discharge. Discussed patient's antipsychotic medication with Dr. eason. Recommended starting olanzapine. Difficulty with discharge as care facility with will not pay for Latuda. Best option would be to taper Latuda and gradually increase olanzapine. As per recommended by the psychiatrist. This may be problematic for patient's discharge. Although that is safe uncommon except to do this as an outpatient. She has now been off the Latuda for approximately 10 days. Patient showing no significant signs of psychosis. May just need to start a land peeing as primary and increase dose. Dr. Eason said he is willing to see the patient as an outpatient here in the next 10 days. Exam Vital Signs (past 8 hours): - 01/26/22 02:22 Temperature 97.5 F L Pulse Rate 80 Respiratory Rate 16 Blood Pressure 138/55 L Pulse Oximetry 95 Oxygen Flow Rate 0 Oxygen Delivery Method Room Air Oxygen Flow Rate 0 Narrative Exam Narrative: Gen.: Alert and oriented x3 no apparent distress. HEENT: NCAT PERRLA tympanic membranes are clear nares are patent oral mucosa is moist no tonsillar hypertrophy neck is supple without lymphadenopathy no thyroid enlargement. Cardio: S1-S2 regular rate and rhythm no murmurs appreciated. Respiratory: Lungs are clear to auscultation no wheezes or crackles normal respiratory effort. Abdomen: Soft nontender no rebound or guarding no liver spleen enlargement no appreciable hernias Extremities: Full range of motion no appreciable weakness no cyanosis or edema. Neurologic: Grossly intact. Objective Labs Result Diagrams: 01/24/22 06:04 01/24/22 06:04 [facility] Medical History Ankle pain (2007) Anxiety (1994) Bipolar 1 disorder, depressed, partial remission Bipolar 1 disorder, mixed, full remission Bipolar disorder (1989) Bipolar I disorder, most recent episode depressed, severe without psychotic features Cataract (2011) Chicken pox CTS (carpal tunnel syndrome) (1987) Depression (1961) DM type 2 (diabetes mellitus, type 2) Foot pain (~2002) Fractures (2007) Hayfever (~1989) Hyperlipidemia Hypertension Hypothyroidism Measles Peripheral neuropathy (2013) RLS (restless legs syndrome) (1999) Sleep apnea (08/2015) Urinary incontinence Surgical History Anesthesia complication History of carpal tunnel repair (~1997) History of surgery (04/2008) Family History Child Age: 50 Arthritis Mother Heart disease Family history of fraternal twins Family history of identical twins Levin gestation with first Social History marital status: number of children: 2 household members: none lives independently: Yes caregiver/support person: No housing: house pets and animals: No education level: high school occupational status: unemployed leisure activities: reading and volunteer work other: walk,garden,visit friends,nondenominational,word puzzles seatbelt use: always water heater temp set < 120 deg: Yes working smoke detector in home: Yes fire extinguisher in home: Yes carbon monox detector in home: Yes Smoking Status: Never smoker second hand exposure: No alcohol intake: current substance use type: does not use during the past year weight has: other well-balanced diet: rarely or never daily servings fruits/ve-1 caffeine: Yes eating out: 1-3 times/week frequency: 3-4 times per week duration: 15-30 minutes/day Assessment & Plan Assessment and plan (1) Acute dehydration: Status: Acute Plan Acute dehydration with acute kidney injury Acute weakness Bipolar type 1 with psychosis Diabetes type 2 Hypertension Hypothyroidism Plan. Patient stable for discharge today. Start olanzapine 5 mg once daily monitor closely for signs and symptoms of increasing psychosis. Follow-up with Dr. Eason and 10 days. Time Spent With Patient Critical Care time: I spent a total of [] minutes of critical care time on this patient's care today; this time is exclusive of procedural time.
--- NOTE | 2022-01-26 08:01 | CM.DPC ---
DCP Cont: Call placed to [facility] to discuss the new development of Latuda being discontinued and now pt only on olanzapine. Left message to call DCP back regarding this information to determine if SNF would accept her. Raya Medrano RN/DCP
[2022-01-26 08:22] VITALS: BP 141/69; PULSE 79; RESP 18; TEMP 36.2; O2SAT 92
[2022-01-26] MEDS: ENOXAPARIN 40 MG/0.4 ML SYRINGE SUBCUT (09:12)
[2022-01-26] MEDS: GABAPENTIN 300 MG CAPSULE 600 MG PO (09:12)
[2022-01-26] MEDS: ASPIRIN EC 81 MG TABLET PO (09:12)
[2022-01-26] MEDS: BENZTROPINE 1 MG TABLET PO (09:13)
[2022-01-26 09:15] VITALS: BP 141/69; PULSE 83
[2022-01-26] MEDS: allopurinoL 300 MG TABLET PO (09:15)
[2022-01-26] MEDS: lisinopriL 10 MG TABLET PO (09:15)
--- NOTE | 2022-01-26 10:44 | CM.DPC ---
DCP Cont: Spoke with Kerri @ [facility] and they have accepted the patient now that the Latuda has been discontinued. COVID swab ordered per Kerri needing it. PAS[facility], clinicals, and med list will be faxed. Patient aware. RN aware. No other needs. Raya Medrano RN/DCP
--- NOTE | 2022-01-26 11:13 | P.DS_ITS ---
History of Present Illness History of Present Illness Chief complaint: GLF, down 5 days?, back pain Discharge Providers Provider Date of admission: 01/22/22 21:22 Discharge Date: 01/26/22 Primary care physician: Alina Corcoran MD Consults: 01/22/22 22:43 Consult to Discharge Planning Routine Comment: 01/23/22 08:56 Consult to Occupational Therapy Evaluate & Treat Comment: Physician Instructions: Evaluate and treat Consult to Physical Therapy Evaluate & Treat Comment: Physician Instructions: Evaluate and Treat Discharge provider: Mike Alberts MD Summary Hospital Course Discharge Diagnosis: Acute dehydration with acute kidney injury Acute weakness Bipolar type 1 with psychosis Diabetes type 2 Hypertension Hypothyroidism Hospital Course: Patient was admitted the hospital for rehydration weakness was found down for approximately 5 days. She was given IV fluids and maintenance IV fluids. After hospital stay her BUN creatinine returned to baseline. She remained quite weak during hospital stay requiring 2 person assist for transfers. 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 Reviewed care with Dr. Shook Psychiatry who recommended alternate medication to the expense of current medication patient not wanting to take with that. The diet him a discharge mental and physical health were stable and at baseline other than generalized weakness. Exam Vital Signs (past 8 hours): - 01/26/22 09:15 01/26/22 08:22 01/26/22 07:00 Temperature 97.2 F L Pulse Rate 83 79 Respiratory Rate 18 Blood Pressure 141/69 H 141/69 H Pulse Oximetry 92 93 Oxygen Delivery Method Room Air Oxygen Flow Rate 0 0 Oxygen Delivery Method Room Air Oxygen Flow Rate 0 Objective Labs Result Diagrams: 01/24/22 06:04 01/24/22 06:04 [facility] Medical History Ankle pain (2007) Anxiety (1994) Bipolar 1 disorder, depressed, partial remission Bipolar 1 disorder, mixed, full remission Bipolar disorder (1989) Bipolar I disorder, most recent episode depressed, severe without psychotic features Cataract (2011) Chicken pox CTS (carpal tunnel syndrome) (1987) Depression (1961) DM type 2 (diabetes mellitus, type 2) Foot pain (~2002) Fractures (2007) Hayfever (~1989) Hyperlipidemia Hypertension Hypothyroidism Measles Peripheral neuropathy (2013) RLS (restless legs syndrome) (1999) Sleep apnea (08/2015) Urinary incontinence Surgical History Anesthesia complication History of carpal tunnel repair (~1997) History of surgery (04/2008) Family History Child Age: 50 Arthritis Mother Heart disease Family history of fraternal twins Family history of identical twins Levin gestation with first Social History marital status: number of children: 2 household members: none lives independently: Yes caregiver/support person: No housing: house pets and animals: No education level: high school occupational status: unemployed leisure activities: reading and volunteer work other: walk,garden,visit friends,confucianist,word puzzles seatbelt use: always water heater temp set < 120 deg: Yes working smoke detector in home: Yes fire extinguisher in home: Yes carbon monox detector in home: Yes Smoking Status: Never smoker second hand exposure: No alcohol intake: current substance use type: does not use during the past year weight has: other well-balanced diet: rarely or never daily servings fruits/ve-1 caffeine: Yes eating out: 1-3 times/week frequency: 3-4 times per week duration: 15-30 minutes/day Discharge Assessment & Plan Assessment and Plan Assessment: Discharge to snf facility Discharge Plan Discharge Plan Patient Disposition: SNF Transfer to: [facility] Transportation: [facility] I certify the postop hospital snf care is medically necessary on a continuing basis for any conditions for which he/ she received care during this hospitalization.: Yes The receiving facility has agreed to accept transfer and provide medical treatment.: Yes Discharge orders & Medications Prescriptions: New olanzapine 5 mg tablet 5 mg PO DAILY Qty: 30 0RF Continued allopurinol 300 mg tablet See Rx Instructions .ROUTE .COMPLEX Qty: 90 3RF Dose Instruction: TAKE 1 TABLET BY MOUTH DAILY FOR GOUT Rx Instructions: TAKE 1 TABLET BY MOUTH DAILY FOR GOUT cholecalciferol (vitamin D3) 125 mcg (5,000 unit) capsule 125 mcg PO DAILY benztropine 1 mg tablet 1 mg PO BID 90 Days Qty: 180 1RF divalproex [Depakote ER] 500 mg tablet extended release 24 hr 1,500 mg PO BEDTIME 90 Days Qty: 270 1RF indomethacin 25 mg capsule See Rx Instructions PO TID PRN (Reason: gout) Qty: 40 0RF Dose Instruction: Take 1 to 2 tabs three times daily for GOUT pain PO TID; administer with food or milk Rx Instructions: Take 1 to 2 tabs three times daily for GOUT pain PO three times a day PRN; lisinopril 10 mg tablet See Rx Instructions .ROUTE .COMPLEX Qty: 90 2RF Dose Instruction: TAKE 1 TABLET BY MOUTH EVERY DAY Rx Instructions: TAKE 1 TABLET BY MOUTH EVERY DAY. atorvastatin 40 mg tablet See Rx Instructions .ROUTE .COMPLEX Qty: 90 2RF Dose Instruction: TAKE 1 TABLET DAILY Rx Instructions: TAKE 1 TABLET DAILY levothyroxine 150 mcg tablet See Rx Instructions .ROUTE .COMPLEX Qty: 90 1RF Dose Instruction: TAKE 1 TABLET BY MOUTH EVERY DAY Rx Instructions: TAKE 1 TABLET BY MOUTH EVERY DAY gabapentin 300 mg capsule 600 mg PO BID MDD 1200mg 30 Days Qty: 120 2RF aspirin 81 mg Tablet,Delayed Release (Dr/Ec) 81 mg PO DAILY Qty: 30 12RF Follow up/Referrals: Alina Corcoran MD [Primary Care Provider] - 1 Month Discharge Health Status Precautions: [facility] Diet/Activity/Treatments Diet: Carb-consistent/Diabetic Liquid consistency: Normal/Thin Food texture: Regular [facility] Rehab type: Physical therapy and Occupational therapy Discharge Data Primary Care Provider: Alina Corcoran Attending Provider: Alina Corcoran
[2022-01-26 11:56] LABS: COVID19 -Nasal RAPID Negative (Negative)
[2022-01-26 12:00] VITALS: BP 143/55; PULSE 79; RESP 18; O2SAT 94
--- NOTE | 2022-01-26 13:45 | PC.NURSE ---
Addendum entered by Hansa Cooper R.N. 01/26/22 14:36: Pt D/C to [facility]. Pt was transferred from hospital bed into facility wheelchair via three person assist via cj lift. All belongings sent with the pt to the SNF. IV removed and tip intact when removed. Pt A&Ox4. Pericare and new brief placed on place prior to discharge. Original Note: Called and gave report to ANTHONY Garrett at 13:11 about the pt which include pt's LOC, general behaviors, medication review including psych medications. Informed ANTHONY Garrett that the pt will need a bariatric bed and will need a cj lift.
== END 2022-01-26 14:18 ==
LOC: ED 21:19 → AC 21:23
PROVIDERS: Emergency Medicine; Family Medicine; Admitting Provider Family Medicine; Emergency Provider Emergency Medicine; Family Provider Family Medicine; PCP Family Medicine; Referring Provider Emergency Medicine; Visit Provider Family Medicine
DX: N17.9 Acute kidney failure, unspecified (principal); E86.0 Dehydration; R53.1 Weakness; W01.0XXA Fall on same level from slipping, tripping and stumbling without subsequent striking against object, initial encounter; Y92.009 Unspecified place in unspecified non-institutional (private) residence as the place of occurrence of the external cause; F31.2 Bipolar disorder, current episode manic severe with psychotic features; R25.1 Tremor, unspecified; E11.9 Type 2 diabetes mellitus without complications; E03.9 Hypothyroidism, unspecified; G47.33 Obstructive sleep apnea (adult) (pediatric); I10 Essential (primary) hypertension; Z20.822 Contact with and (suspected) exposure to COVID-19
CPT/HCPCS: 36415; 70450; 71260; 72125; 74177; 80053; 80305; 80320; 80329; 81001; 82009; 82140; 82550; 82553; 82962; 83036; 83605; 84145; 84484; 85025; 85610; 85730; 87040; 87635; 93005; 93010; 96360; 96361; 96372; 97110; 97162; 97166; 97530; 97535; 99217; 99218; 99225; 99285; C9803; G0378; G0480; J1650; Q9967

== ENCOUNTER 2022-03-15 17:19 | Emergency (ER) | payer MEDICARE, MEDICAID, SELFPAY ==
[2022-01-22 22:38] VITALS: BMI 32.9
[2022-03-15 17:20] VITALS: BP 133/75; PULSE 100; RESP 15; TEMP 36.8; O2SAT 98; BMI 37.3
--- NOTE | 2022-03-15 17:23 | DI.RAD.S_ITS ---
PROCEDURE: XR LUMBAR SPINE 2-3V INDICATIONS: fall onto butt TECHNIQUE: 3 views of the lumbar spine were acquired. COMPARISON: [facility], , L-SPINE 2-3 VIEWS, 03/22/2015, 12:39. FINDINGS: Bones: 5 [id number] vertebrae are present. There is normal bony alignment. Loss of disc height, degenerative endplate changes and bilateral facet arthrosis throughout lumbar spine is seen. No vertebral body compression fractures. No suspicious bony lesions. Soft tissues: Overlying bowel gas pattern is normal. No suspicious soft tissue calcifications. IMPRESSION: No acute lumbar spine compression fracture or spondylolisthesis. Degenerative disc disease throughout lumbar spine. Dictated by: Les Greenfield M.D. on 03/15/2022 at 17:55 Approved by: Les Greenfield M.D. on 03/15/2022 at 17:55
--- NOTE | 2022-03-15 17:23 | DI.RAD.S_ITS ---
PROCEDURE: XR SACRUM COCCYX MIN 2V INDICATIONS: fall onto butt TECHNIQUE: 3 views of the sacrum and coccyx acquired. COMPARISON: None. FINDINGS: Bones: There is osteopenia. No gross acute fractures or dislocations. No suspicious bony lesions. Soft tissues: Visualized bowel gas pattern is normal. No suspicious soft tissue densities. IMPRESSION: No gross acute sacral or coccygeal fractures. Osteopenia. Dictated by: Les Greenfield M.D. on 03/15/2022 at 17:55 Approved by: Les Greenfield M.D. on 03/15/2022 at 17:58
--- NOTE | 2022-03-15 18:12 | DI.CT.S_ITS ---
PROCEDURE: CT HEAD/BRAIN WO CON INDICATIONS: fall, head injury, without headache or symptom TECHNIQUE: Noncontrast 4.5 mm thick angled axial sections acquired from the foramen magnum to the vertex, with coronal and sagittal reformats. For radiation dose reduction, the following was used: automated exposure control, adjustment of mA and/or kV according to patient size. COMPARISON: None. FINDINGS: Image quality: Excellent. CSF spaces: Basal cisterns are patent. No extra-axial fluid collections. The ventricles are symmetric in size and shape. Brain: No intracranial bleeds or masses. There is mild cerebral volume loss for age, with resultant ventricular and sulcal prominence. There are mild periventricular and deep white matter chronic small vessel ischemic changes. There is intracranial internal carotid artery atherosclerosis. Skull and face: Calvarium and visualized facial bones appear intact, without suspicious lesions. Sinuses: Visualized sinuses and mastoids are clear. IMPRESSION: No acute finding. Dictated by: Mike Guy M.D. on 03/15/2022 at 17:29 Approved by: Mike Guy M.D. on 03/15/2022 at 17:30
--- NOTE | 2022-03-15 18:12 | DI.CT.S_ITS ---
PROCEDURE: CT CERVICAL SPINE WO CON INDICATIONS: pain after fall TECHNIQUE: Noncontrast 3 mm thick sections acquired from the skull base to the T4 level. Sagittal and coronal reformats were then constructed. For radiation dose reduction, the following was used: automated exposure control, adjustment of mA and/or kV according to patient size. COMPARISON: None. FINDINGS: Image quality: Excellent. Bones: No fractures or dislocations. Visualized superior ribs are intact. Soft tissues: Prevertebral soft tissues are normal in thickness. No paravertebral hematomas. No apical pneumothoraces. IMPRESSION: No CT evidence of acute traumatic cervical spine injury. Dictated by: Mike Guy M.D. on 03/15/2022 at 17:28 Approved by: Mike Guy M.D. on 03/15/2022 at 17:29
--- NOTE | 2022-03-15 18:36 | ED_ITS ---
HPI - Fall General Chief Complaint: Fall Stated Complaint: fall w/backpain Time Seen by Provider: 03/15/22 17:38 Source: patient Mode of arrival: EMS History of Present Illness HPI Narrative: This is a 71-year-old female who is recently discharged from a rehab facility who presents to the emergency department via EMS with her daughter who patient is living with currently. Patient's insurance did not pay for more days at the rehab facility. Patient states that she did have a UTI when she was at this facility and has recently come home to stay with her daughter. She is had recent history of multiple falls, today states that she had 1 break of her walker on and the other was not on and she tried to sit in the walker which went out below her. She fell down, she did hit the left side of her head on the wheel, complains of neck pain to palpation. Denies range of Deepak difficulties, denies new pain otherwise, states that low back is the most painful, she fell down on her bottom, has sacrum pain denies radiation of this pain, denies numbness or tingling, incontinence, or other complication. Leg lift does not exacerbate pain, she is not medication prior to arrival. Patient has past medical history significant for type 2 diabetes, gout, restless legs, hypertension, hypothyroidism, sleep apnea, weakness and bipolar. She is not on anticoagulants, denies having any headache, dizziness, weakness, numbness or tingling or other complaint. She denies loss of consciousness, nausea vomiting. Related Data Home Medications Medication Instructions Recorded Confirmed cholecalciferol (vitamin D3) 125 125 mcg PO DAILY 05/11/21 01/22/22 mcg (5,000 unit) capsule Previous Rx's Medication Instructions Recorded indomethacin 25 mg capsule See Rx Instructions PO TID PRN 06/23/19 gout #40 caps aspirin 81 mg tablet,delayed 81 mg PO DAILY #30 tabs 05/14/20 release allopurinol 300 mg tablet See Rx Instructions .Route 08/24/21 .COMPLEX #90 tabs atorvastatin 40 mg tablet See Rx Instructions .Route 10/06/21 .COMPLEX #90 tabs levothyroxine 150 mcg tablet See Rx Instructions .Route 10/31/21 .COMPLEX #90 tabs benztropine 1 mg tablet 1 mg PO BID 90 days #180 tabs 11/07/21 divalproex 500 mg tablet,extended 1,500 mg PO BEDTIME 90 days #270 11/07/21 release 24 hr (Depakote ER) tabs gabapentin 300 mg capsule 600 mg PO BID 30 days #120 caps 12/30/21 olanzapine 5 mg tablet 5 mg PO DAILY #30 tabs 02/27/22 lisinopril 10 mg tablet See Rx Instructions .Route 02/28/22 .COMPLEX #90 tabs hydrocodone 5 mg-acetaminophen 325 1 tab PO TID #14 tabs 03/15/22 mg tablet lidocaine 5 % topical patch 1 patch topical DAILY #15 ea 03/15/22 (Lidoderm) Allergies Allergy/AdvReac Type Severity Reaction Status Date / Time Sulfa (Sulfonamide Allergy Mild RASH Verified 03/15/22 17:24 Antibiotics) haloperidol [HALOPERIDOL] Allergy Unknown Verified 03/15/22 17:24 lithium [LITHIUM] Allergy Unknown Verified 03/15/22 17:24 risperidone [RISPERIDONE] Allergy Unknown Verified 03/15/22 17:24 perphenazine AdvReac uncontrolled Verified 03/15/22 17:24 hand shaking Review of Systems Review of Systems ROS Unobtainable: All systems reviewed & are unremarkable except as noted in HPI and below Patient History Medical History Ankle pain (2007) Anxiety (1994) Bipolar 1 disorder, depressed, partial remission Bipolar 1 disorder, mixed, full remission Bipolar disorder (1989) Bipolar I disorder, most recent episode depressed, severe without psychotic features Cataract (2011) Chicken pox CTS (carpal tunnel syndrome) (1987) Depression (1961) DM type 2 (diabetes mellitus, type 2) Foot pain (~2002) Fractures (2007) Hayfever (~1989) Hyperlipidemia Hypertension Hypothyroidism Measles Peripheral neuropathy (2013) RLS (restless legs syndrome) (1999) Sleep apnea (08/2015) Urinary incontinence Surgical History Anesthesia complication History of carpal tunnel repair (~1997) History of surgery (04/2008) Family History Child Age: 50 Arthritis Mother Heart disease Family history of fraternal twins Family history of identical twins Levin gestation with first Social History (Reviewed 12/07/22 @ 18:40 by Marian Wellington [facility] marital status: number of children: 2 household members: none lives independently: Yes caregiver/support person: No housing: house pets and animals: No education level: high school occupational status: unemployed leisure activities: reading and volunteer work other: walk,garden,visit friends,mosque,word puzzles seatbelt use: always water heater temp set < 120 deg: Yes working smoke detector in home: Yes fire extinguisher in home: Yes carbon monox detector in home: Yes Smoking Status: Never smoker second hand exposure: No alcohol intake: current substance use type: does not use during the past year weight has: other well-balanced diet: rarely or never daily servings fruits/ve-1 caffeine: Yes eating out: 1-3 times/week frequency: 3-4 times per week duration: 15-30 minutes/day Smoking Status: Never smoker alcohol intake frequency: holidays/special occasions only Substance Use Type: does not use Exam Narrative Exam Narrative: Reviewed vitals signs and nursing notes. General: cooperative, comfortable, in no acute distress, well groomed HEENT: symmetrical facial expressions, moist mucous membranes Cardiovascular: regular rate and rhythm, no peripheral edema, warm extremities Respiratory: normal effort, able to speak in complete sentences, without wheezing, stridor, or abnormal breath sounds. No retractions or tachypnea. GI: abdomen soft, nontender to palpation, nondistended, without masses, rebound tenderness or exquisite tenderness with exam. MSK: moves all extremities, neurovascularly intact, no weakness, normal tone, tenderness to her cervical spine and upper thoracic spine to palpation, without step-off, deformity, weakness, leg lift bilaterally does not elicit low back pain or worsening of it. She is able to plantar extend and dorsiflex without deficit, without sensation deficit, is able to move about the bed without spasm. No tenderness to her lumbar spine or sacrum to palpation, without incontinence Skin: brisk capillary refill, without pallor or erythema Neuro: normal speech and cognition, A&O x3, clear speech, uses a walker at baseline, currently not ambulating, Psych: mental status is grossly normal, congruent mood, normal affect, pleasant and cooperative Initial Vital Signs Initial Vital Signs: Vital Signs Temperature 98.3 F 03/15/22 17:20 Pulse Rate 100 H 03/15/22 17:20 Respiratory Rate 15 03/15/22 17:20 Blood Pressure 133/75 03/15/22 17:20 Pulse Oximetry 98 03/15/22 17:20 Oxygen Delivery Method 03/15/22 17:20 Course Orders Ordered: ED Orders 03/15/22 17:23 XR lumbar spine 2-3V Stat XR sacrum coccyx min 2V Stat 03/15/22 18:12 CT cervical spine wo con Stat CT head/brain wo con Stat 03/15/22 19:23 Urine Microscopic Stat Discontinued Medications Acetaminophen (Acetaminophen 325 Mg Tablet) 650 mg PO NOW ONE Stop: 03/15/22 18:13 Last Admin: 03/15/22 19:11 Dose: 650 mg Documented By: TAMMIE Hydrocodone Bitart/Acetaminophen (Hydrocodone/Acet 5/325 Tablet) 1 tab PO NOW ONE Stop: 03/15/22 18:13 Last Admin: 03/15/22 19:11 Dose: 1 tab Documented By: TAMMIE Lidocaine (Lidocaine Patch 1 Each Adh..Patch) 1 each TOP NOW ONE Stop: 03/15/22 18:13 Last Admin: 03/15/22 19:11 Dose: 1 each Documented By: TAMMIE Vital Signs Vital signs: Vital Signs - 8 hr 03/15/22 17:20 03/15/22 19:24 03/15/22 20:02 Temperature 98.3 F Pulse Rate 100 H 75 70 Respiratory Rate 15 16 16 Blood Pressure 133/75 138/88 142/79 H Pulse Oximetry 98 98 98 Oxygen Delivery Method Room Air Room Air Room Air MDM - Fall Lab Data Labs: Lab Results 03/15/22 Range/Units 19:23 Urine RBC None seen (0-5/HPF) Urine WBC 1-5/hpf (0-5/HPF) Ur Squamous Epith Cells 1-5 /hpf (0-5/HPF) Ur Renal Epithelial Cell 0-1/hpf (0-1/HPF) Amorphous Sediment 1+ Urine Bacteria None seen (None) Urine Mucus 1+ H (Negative) Ur Culture Indicated? Cult not indicated Urine Dip Bedside Urine Glucose Negative Bedside Urine Bilirubin - Negative Bedside Urine Ketone - Negative Bedside Urine Occult Blood - Negative Bedside Urine Protein - Negative Bedside Urine Urobilinogen - Negative Bedside Urine Nitrite - Negative Bedside Urine Leukocytes - Negative Esterase Imaging Data CT scan - head: Radiologist's Impression: PROCEDURE:? CT HEAD/BRAIN WO CON ? INDICATIONS:? fall, head injury, without headache or symptom ? TECHNIQUE:? Noncontrast 4.5 mm thick angled axial sections acquired from the foramen magnum to the vertex, with coronal and sagittal reformats.? For radiation dose reduction, the following was used:? automated exposure control, adjustment of mA and/or kV according to patient size.? ? COMPARISON:? None. ? FINDINGS:? Image quality:? Excellent.? ? CSF spaces:? Basal cisterns are patent.? No extra-axial fluid collections.? The ventricles are symmetric in size and shape.? ? Brain:? No intracranial bleeds or masses.? There is mild cerebral volume loss for age, with resultant ventricular and sulcal prominence.? There are mild periventricular and deep white matter chronic small vessel ischemic changes.? There is intracranial internal carotid artery atherosclerosis.? ? Skull and face:? Calvarium and visualized facial bones appear intact, without suspicious lesions.? ? Sinuses:? Visualized sinuses and mastoids are clear.? ? IMPRESSION:? No acute finding. ? ? Dictated by: Mike Guy M.D. on 03/15/2022 at 17:29 ? ? Approved by: Mike Guy M.D. on 03/15/2022 at 17:30 ? CT - cervical spine: Radiologist's Impression: PROCEDURE:? CT CERVICAL SPINE WO CON ? INDICATIONS:? pain after fall ? TECHNIQUE:? Noncontrast 3 mm thick sections acquired from the skull base to the T4 level.? Sagittal and coronal reformats were then constructed.? For radiation dose reduction, the following was used:? automated exposure control, adjustment of mA and/or kV according to patient size.? ? COMPARISON:? None. ? FINDINGS:? Image quality:? Excellent.? ? Bones:? No fractures or dislocations.? Visualized superior ribs are intact.? ? Soft tissues:? Prevertebral soft tissues are normal in thickness.? No paravertebral hematomas.? No apical pneumothoraces.? ? ? IMPRESSION:? No CT evidence of acute traumatic cervical spine injury. ? Dictated by: Mike Guy M.D. on 03/15/2022 at 17:28 ? ? Approved by: Mike Guy M.D. on 03/15/2022 at 17:29 ? Extremity x-ray #1: Radiologist's Impression: SACRUM COCCYX MIN 2V ? INDICATIONS:? fall onto butt ? TECHNIQUE:? 3 views of the sacrum and coccyx acquired.? ? COMPARISON:? None. ? FINDINGS:? ? Bones:? There is osteopenia.? No gross acute fractures or dislocations.? No suspicious bony lesions.? ? Soft tissues:? Visualized bowel gas pattern is normal.? No suspicious soft tissue densities.? ? IMPRESSION:? No gross acute sacral or coccygeal fractures.? Osteopenia. ? ? Dictated by: Les Greenfield M.D. on 03/15/2022 at 17:55 ? ? Approved by: Les Greenfield M.D. on 03/15/2022 at 17:58 ? Extremity x-ray #2: Radiologist's Impression: PROCEDURE:? XR LUMBAR SPINE 2-3V ? INDICATIONS:? fall onto butt ? TECHNIQUE:? 3 views of the lumbar spine were acquired.? ? COMPARISON:? [facility], , L-SPINE 2-3 VIEWS, 03/22/2015, 12:39. ? FINDINGS:? ? Bones:? 5 [id number] vertebrae are present.? There is normal bony alignment.? Loss of disc height, degenerative endplate changes and bilateral facet arthrosis throughout lumbar spine is seen.? No vertebral body compression fractures.? No suspicious bony lesions.? ? Soft tissues:? Overlying bowel gas pattern is normal.? No suspicious soft tissue calcifications.? ? ? IMPRESSION:? No acute lumbar spine compression fracture or spondylolisthesis.? Degenerative disc disease throughout lumbar spine. ? ? Dictated by: Les Greenfield M.D. on 03/15/2022 at 17:55 ? ? Approved by: Les Greenfield M.D. on 03/15/2022 at 17:55 ? [facility] Narrative Medical decision making narrative: This is a 71-year-old female who is brought in for evaluation after a mechanical fall at home when she tried to sit on her walker without both brakes on, it started to move as she was sitting down and she fell down onto her buttocks and complained of worsening low back pain without weakness, without incontinence, and did not sustain significant head injury. CT imaging of her head, C-spine, lumbar spine, and sacrum without acute fracture, acute abnormality, or concerning findings. Today she had tenderness on her lower cervical spine to palpation, this improved with hydrocodone and Tylenol in the emergency department, lidocaine patch was placed on her lumbar spine which helped with her low back pain, patient has history of UTIs and had a urinary tract infection when she was in rehab, she was recently discharged home from rehab in his staying with her daughter who is helping care for her. She is had frequent falls recently but not due to neurologic deficit, weakness, or instability. Patient does not have any focal neuro deficits on exam today, leg lift is not elicit radiculopathy symptoms bilaterally, she is nontender over lumbar spine to palpation and her sacrum, straight cath urine was negative for infection as well, this was completed with the bedside nurse and myself. Patient does not have any rash numbness to her. She is mobile, was able to stand and pivot transfer to discharge home. Recommend that patient follow-up with her primary care provider for a referral to physical therapy since she is in a transition state with her insurance and rehab. She would benefit from physical therapy to maintain her strength that she is having fall problems. Patient is appropriate and amenable to discharge home. Vital signs are stable on repeat examination is unremarkable. Patient has been informed of results. Patient has been given strict return to ER precautions for any new or worsening symptoms. Patient understands to follow up closely with outpatient providers as instructed. Patient understands plan and agrees to discharge home. All questions and concerns answered at this time. Discharge Plan Departure Patient Disposition: Home Clinical Impression: Acute neck pain Fall Qualifiers: Encounter type: initial encounter Qualified Code(s): W19.XXXA - Unspecified fall, initial encounter Low back pain Qualifiers: Chronicity: acute Back pain laterality: midline Sciatica presence: without sciatica Qualified Code(s): M54.50 - Low back pain, unspecified Instructions: How to Prevent Falls Activity Restrictions/Additional Instructions: *You have been diagnosed with a fall, it does not appear that this is related to a bladder infection so that is good news. All of your scans came back negative for new injuries, please use hydrocodone and Tylenol as needed for worsening pain, lidocaine patches can be helpful, please ensure that your walker is near you at all times, please ask for assistance to the restroom and harass her daughter, she wants to help you and prevent you from falling. Please stay hydrated, follow-up with Dr. Hernandez next week, please schedule an appointment. Please return to the emergency department for new or worsening symptoms, try to avoid falls at all cost, if you develop fever and chills, please return for another evaluation. *What to do: *Please continue to take your regular medications as directed. [ x] New medication prescriptions sent to your pharmacy: [ [facility]] [ ] New medication written as a paper prescription [ ] No new medications given *Please follow up with your primary care provider in 2-3 days, call for an appointment. Let them know you were seen in the Emergency Department and that we asked that you be seen for follow-up. We will electronically transmit a record of today's note if your PCP is in our system *If you do not have a primary care provider please contact [phone] to establish care with one of the [facility] primary care providers. *Return to Emergency Department if you should have any new, worsening, or concerning symptoms, such as [fever greater than 101F, chills, worsening pain, p ersistent vomiting or other bothersome symptoms]. Prescriptions: New hydrocodone-acetaminophen 5-325 mg tablet 1 tab PO TID Qty: 14 0RF lidocaine [Lidoderm] 5 % adhesive patch,medicated 1 patch topical DAILY Qty: 15 0RF Rx Instructions: leave on most painful area for up to 12 hrs No Action allopurinol 300 mg tablet See Rx Instructions .ROUTE .COMPLEX Qty: 90 3RF Dose Instruction: TAKE 1 TABLET BY MOUTH DAILY FOR GOUT Rx Instructions: TAKE 1 TABLET BY MOUTH DAILY FOR GOUT cholecalciferol (vitamin D3) 125 mcg (5,000 unit) capsule 125 mcg PO DAILY benztropine 1 mg tablet 1 mg PO BID 90 Days Qty: 180 1RF divalproex [Depakote ER] 500 mg tablet extended release 24 hr 1,500 mg PO BEDTIME 90 Days Qty: 270 1RF indomethacin 25 mg capsule See Rx Instructions PO TID PRN (Reason: gout) Qty: 40 0RF Dose Instruction: Take 1 to 2 tabs three times daily for GOUT pain PO TID; administer with food or milk Rx Instructions: Take 1 to 2 tabs three times daily for GOUT pain PO three times a day PRN; atorvastatin 40 mg tablet See Rx Instructions .ROUTE .COMPLEX Qty: 90 2RF Dose Instruction: TAKE 1 TABLET DAILY Rx Instructions: TAKE 1 TABLET DAILY levothyroxine 150 mcg tablet See Rx Instructions .ROUTE .COMPLEX Qty: 90 1RF Dose Instruction: TAKE 1 TABLET BY MOUTH EVERY DAY Rx Instructions: TAKE 1 TABLET BY MOUTH EVERY DAY gabapentin 300 mg capsule 600 mg PO BID MDD 1200mg 30 Days Qty: 120 2RF olanzapine 5 mg tablet 5 mg PO DAILY Qty: 30 0RF lisinopril 10 mg tablet See Rx Instructions .ROUTE .COMPLEX Qty: 90 2RF Dose Instruction: TAKE 1 TABLET BY MOUTH EVERY DAY Rx Instructions: TAKE 1 TABLET BY MOUTH EVERY DAY. aspirin 81 mg Tablet,Delayed Release (Dr/Ec) 81 mg PO DAILY Qty: 30 12RF Referrals: Alina Corcoran MD [Primary Care Provider] - Visit Report Forms: Patient Portal/API
[2022-03-15] MEDS: HYDROCODONE/ACET 5/325 TABLET 1 TAB PO (19:11)
[2022-03-15] MEDS: ACETAMINOPHEN 325 MG TABLET 650 MG PO (19:11)
[2022-03-15] MEDS: LIDOCAINE PATCH 1 EACH ADH..PATCH TOP (19:11)
[2022-03-15 19:24] VITALS: BP 138/88; PULSE 75; RESP 16; O2SAT 98
[2022-03-15 19:54] LABS: RBC Urine None Seen (0-5/HPF); Renal Epithelial Cells Urine 0-1/HPF (0-1/HPF); Squamous Epithelial Cell Urine 1-5 /HPF (0-5/HPF); WBC Urine 1-5/HPF (0-5/HPF)
[2022-03-15 19:55] LABS: Amorphous Sediment Urine 1+; Bacteria Urine None Seen; Culture Indicated Urine Cult Not Indicated; Mucus Urine 1+ (Negative)
[2022-03-15 20:02] VITALS: BP 142/79; PULSE 70; RESP 16; O2SAT 98
== END 2022-03-15 20:03 | disposition home or self-care (01) ==
PROVIDERS: Emergency Provider Nurse Practitioner Critical Care Medicine; Family Provider Family Medicine; PCP Family Medicine
DX: M54.2 Cervicalgia (principal); S09.90XA Unspecified injury of head, initial encounter; M54.50 Low back pain, unspecified; W18.30XA Fall on same level, unspecified, initial encounter; Z79.899 Other long term (current) drug therapy
CPT/HCPCS: 70450; 72100; 72125; 72220; 81003; 81015; 99283

== ENCOUNTER → 2022-03-23 14:46 | Outpatient (CLI) | payer MEDICARE, SELFPAY ==
[2022-01-22 22:38] VITALS: BMI 32.9
[2022-03-23 16:20] LABS: Add Manual Diff / Slide Review NO; Basophils Absolute Auto 0 /uL (0-100); Basophils Percent Auto 0.5 % (0-2); Eosinophils Absolute Auto 400 /uL (0-450); Eosinophils Percent Auto 5.5 % (2-4); Hematocrit 32.6 % (36-46); Hemoglobin 10.9 g/dL (12.0-16.0); Lymphocytes Absolute Auto 3500 /uL (1100-4500); Lymphocytes Percent Auto 45.3 % (25-40); Mean Corpuscular HGB Conc 33.4 % (30-36); Mean Corpuscular Hemoglobin 32.3 PG (26-34); Mean Corpuscular Volume 96.7 fL (80-100); Monocytes Absolute Auto 600 /uL (0-900); Neutrophils Absolute Auto 3200 /uL (1500-7000); Neutrophils Percent Auto 40.7 % (50-75); Platelet Count 237 X10^3/uL (150-400); Red Blood Cell Count 3.37 X10^6/uL (4.0-5.2); White Blood Cell Count 7.8 X10^3/uL (4.5-11.0)
[2022-03-23 16:42] LABS: HEMOLYSIS < 15 (0-50); Iron 62 ug/dL (37-170)
[2022-03-23 16:46] LABS: Alanine Aminotransferase 17 IU/L (<35); Albumin Globulin Ratio 1.3 (1.0-2.8); Alkaline Phosphatase 61 U/L (38-126); Aspartate Aminotransferase 24 IU/L (14-36); BUN Creatinine Ratio 22.9 (6-22); Bilirubin Total 0.2 mg/dL (0.2-1.3); Blood Urea Nitrogen 19 mg/dL (7-17); Calcium 9.5 mg/dL (8.4-10.2); Carbon Dioxide 31 mmol/L (22-32); Chloride 98 mmol/L (98-107); Estimated Glomerular Filt Rate > 60 mL/min (>60); Globulin 3.2 g/dL (1.7-4.1); Glucose 105 mg/dL (80-110); HEMOLYSIS < 15 (0-50); Potassium 4.4 mmol/L (3.4-5.1); Sodium 139 mmol/L (137-145); Total Protein 7.2 g/dL (6.3-8.2)
[2022-03-23 16:54] LABS: Percent Iron Saturation 15 % (15-50); Total Iron Binding Capacity 415 ug/dL (265-497); Transferrin 320 mg/dL (206-381)
[2022-03-23 17:15] LABS: TSH w/ Reflex to FT4 1.57 uIU/mL (0.47-4.68)
[2022-03-23 17:19] LABS: Ferritin 19 ng/mL (11-264)
[2022-03-23 17:33] LABS: Vitamin B12 644 pg/mL (239-931)
== END ==
PROVIDERS: Physician Assistant; Family Provider Family Medicine; PCP Family Medicine; Referring Provider Family Medicine; Visit Provider Family Medicine
DX: D64.9 Anemia, unspecified (principal); E03.9 Hypothyroidism, unspecified; E11.9 Type 2 diabetes mellitus without complications; G25.89 Other specified extrapyramidal and movement disorders; I10 Essential (primary) hypertension; R53.1 Weakness; R79.9 Abnormal finding of blood chemistry, unspecified; T50.905A Adverse effect of unspecified drugs, medicaments and biological substances, initial encounter
CPT/HCPCS: 36415; 80053; 82607; 82728; 83540; 83550; 84443; 85025

== ENCOUNTER → 2022-07-01 17:33 | Outpatient (CLI) | payer MEDICARE, MEDICAID, SELFPAY ==
[2022-01-22 22:38] VITALS: BMI 32.9
== END ==
PROVIDERS: Family Provider Family Medicine; PCP Family Medicine; Visit Provider Nurse Practitioner Family
DX: L08.9 Local infection of the skin and subcutaneous tissue, unspecified (principal)
CPT/HCPCS: 87070; 87075; 87077; 87147; 87186; 87205

== ENCOUNTER → 2022-08-25 11:08 | Outpatient (CLI) | payer MEDICARE, SELFPAY ==
[2022-01-22 22:38] VITALS: BMI 32.9
[2022-08-25 12:47] LABS: Alanine Aminotransferase 27 IU/L (<35); Albumin Globulin Ratio 1.3 (1.0-2.8); Alkaline Phosphatase 88 U/L (38-126); Aspartate Aminotransferase 29 IU/L (14-36); BUN Creatinine Ratio 22.5 (6-22); Bilirubin Total 0.3 mg/dL (0.2-1.3); Blood Urea Nitrogen 20 mg/dL (7-17); Calcium 9.2 mg/dL (8.4-10.2); Carbon Dioxide 28 mmol/L (22-32); Chloride 101 mmol/L (98-107); Cholesterol 206 mg/dL (140-199); Estimated Glomerular Filt Rate > 60 mL/min (>60); Glucose 118 mg/dL (80-110); HDL Cholesterol 41 mg/dL (40-60); HEMOLYSIS < 15 (0-50); LDL Cholesterol Calculated 127 mg/dL (<100); Potassium 4.8 mmol/L (3.4-5.1); Sodium 137 mmol/L (137-145); Triglycerides 192 mg/dL (35-150)
[2022-08-25 14:03] LABS: Creatinine Urine Random 194.7 mg/dL
[2022-08-25 14:07] LABS: Microalbumi Creatinin Ratio Ur 38.5 ug/mg CR (<30); Microalbumin Urine Random 7.5 mg/dL (0-1.6)
== END ==
PROVIDERS: Family Provider Family Medicine; PCP Family Medicine; Referring Provider Family Medicine; Visit Provider Family Medicine
DX: E78.5 Hyperlipidemia, unspecified; E11.9 Type 2 diabetes mellitus without complications; I10 Essential (primary) hypertension
CPT/HCPCS: 36415; 80053; 80061; 82043; 82570; 83036

== ENCOUNTER → 2022-09-11 11:10 | Outpatient (CLI) | payer MEDICARE, SELFPAY ==
[2022-01-22 22:38] VITALS: BMI 32.9
[2022-09-12 05:18] LABS: Valproic Acid (Depakene) Total 116 ug/mL (50-100)
== END ==
PROVIDERS: Family Provider Family Medicine; PCP Family Medicine; Referring Provider Psychiatry & Neurology Psychiatry; Visit Provider Psychiatry & Neurology Psychiatry
DX: F31.9 Bipolar disorder, unspecified (principal); Z79.899 Other long term (current) drug therapy
CPT/HCPCS: 36415; 80164

== ENCOUNTER → 2022-11-07 12:35 | Outpatient (CLI) | payer MEDICARE, MEDICAID, SELFPAY ==
[2022-01-22 22:38] VITALS: BMI 32.9
--- NOTE | 2022-11-07 12:37 | DI.ECHO.S_ITS ---
[facility]---------+ [facility] +---------+ : : [address] : : : : [id number] : : : : Phone: [phone]---------+ Echocardiogram Report + + :Name: MILAD HERNANDEZ V Study Date: 11/07/2022 Height: 63 in : :[facility] ReadingLocation: Weight: 245 lb : : Gender: Female BSA: 2.1 m2 : :: 1950 Age: 72 yrs BP: 148/88 mmHg: :Reason For Study: LOCALIZED EDEMA : :Ordering Physician: PHUC, : :VICKY Performed By: Sharron Velasco : :Referring: VICKY FRIEND : + + Interpretation Summary The study quality was technically difficult. The ejection fraction is estimated to be 60-65%. Diastolic parameters suggest probable normal left ventricular diastolic function and normal filling pressures. The right ventricle is normal in size and function. No significant valvular abnormalities. Pulmonary artery pressures cannot be estimated because of the lack of a measurable TR jet velocity. Compared to the prior study dated 05/14/2020, there is an increase in ejection fraction. Procedure: A two-dimensional transthoracic echocardiogram with color flow and Doppler was performed. Comparison is made with the echocardiogram of 05/14/2020. The study quality was technically difficult. The patient was in sinus rhythm with heart rates between 73-81 bpm during the exam. Left Ventricle: The left ventricle is normal in size and wall thickness. The ejection fraction is estimated to be 60-65%. Diastolic parameters suggest probable normal left ventricular diastolic function and normal filling pressures. Right Ventricle: The right ventricle is normal in size and function. Atria: The left atrial size is normal. Right atrial size is normal. There is no Doppler evidence for an interatrial shunt. Mitral Valve: The mitral valve is normal in structure and function. There is trace mitral regurgitation. Aortic Valve: The aortic valve is trileaflet. The aortic valve opens well. There is no aortic valve stenosis. No aortic regurgitation is present. Tricuspid Valve: The tricuspid valve is normal in structure and function. There is trace tricuspid regurgitation. Pulmonary artery pressures cannot be estimated because of the lack of a measurable TR jet velocity. Pulmonic Valve: The pulmonic valve is not well seen, but is grossly normal. There is trace pulmonic regurgitation. Great Vessels: The aortic root is normal size. The dimensions of the ascending aorta are normal. The IVC is of normal diameter and collapses greater than 50% with a sniff. This suggests a low right atrial pressure of 3 mm Hg. Pericardium/ Pleura There is no pericardial effusion. There is an anterior echo-free space consistent with a fat pad. There is no pleural effusion. MMode/2D Measurements & Calculations LVIDd: 4.6 cm LVOT diam: 2.0 cm LVIDs: 3.0 cm Ao root diam: 3.0 cm FS: 33.3 % asc Aorta Diam: 3.3 cm IVSd: 0.78 cm Ao Arch Diam (Prox Trans): 3.0 cm LVPWd: 0.98 cm LV diaz. diameter/BSA (cm/m^2): 2.2 LV sys. diameter/BSA (cm/m^2): 1.4 LA A2 area: 15.4 cm2 RA long axis: 4.2 cm LA A4 area: 8.6 cm2 RA area: 6.2 cm2 LA length (vol): 3.6 cm RA vol: 7.9 ml LA vol: 31.3 ml RA : 3.7 ml/m2 LA vol index: 14.8 ml/m2 IVC diam: 1.5 cm RVD1 (basal): 3.4 cm TAPSE: 2.3 cm Doppler Measurements & Calculations Ao V2 max: 128.3 cm/sec LVOT Max Nilson: 96.4 cm/sec Ao V2 mean: 91.8 cm/sec LV V1 max P.7 mmHg Ao max P.6 mmHg LV V1 VTI: 20.5 cm Ao mean P.8 mmHg HEATHER(I,D): 2.3 cm2 Ao V2 VTI: 27.9 cm HEATHER(V,D): 2.3 cm2 sev ratio: 0.73 HEATHER indexed to BSA (cm^2/m^2): 1.1 MV E max nilson: 57.5 cm/sec PA V2 max: 86.6 cm/sec MV A max nilson: 87.5 cm/sec PA V2 mean: 60.7 cm/sec MV E/A: 0.66 PA mean P.6 mmHg Med Peak E' Nilson: 6.0 cm/sec PA pr(Accel): 25.9 mmHg E/E' med: 9.6 Lat Peak E' Nilson: 7.8 cm/sec E/E' lat: 7.3 E/e' average: 8.5 MV dec time: 0.21 sec SVLVOT): 63.1 ml Reading Physician:02:27 PM
== END ==
PROVIDERS: Family Provider Family Medicine; PCP Family Medicine; Referring Provider Family Medicine; Visit Provider Family Medicine
DX: R60.0 Localized edema (principal)
CPT/HCPCS: 93306

== ENCOUNTER → 2023-01-22 11:36 | Outpatient (CLI) | payer MEDICARE, MEDICAID, SELFPAY ==
[2022-01-22 22:38] VITALS: BMI 32.9
[2023-01-22 12:59] LABS: HEMOLYSIS < 15 (0-50); Iron 94 ug/dL (37-170)
[2023-01-22 13:08] LABS: C-Reactive Protein Quant 0.7 mg/dL (<1.0)
[2023-01-22 13:09] LABS: Percent Iron Saturation 23 % (15-50); Total Iron Binding Capacity 406 ug/dL (265-497); Transferrin 299 mg/dL (206-381)
[2023-01-22 13:37] LABS: Ferritin 87 ng/mL (11-264)
== END ==
PROVIDERS: Family Provider Family Medicine; PCP Family Medicine; Referring Provider Pediatrics; Visit Provider Pediatrics
DX: D50.9 Iron deficiency anemia, unspecified (principal); G25.81 Restless legs syndrome
CPT/HCPCS: 36415; 82728; 83540; 83550; 86140

== ENCOUNTER → 2023-03-20 11:28 | Outpatient (CLI) | payer MEDICARE, MEDICAID, SELFPAY ==
[2022-01-22 22:38] VITALS: BMI 32.9
--- NOTE | 2023-03-20 11:31 | DI.US.S_ITS ---
LIMITED ULTRASOUND OF RIGHT BREAST: 03/20/2023 CLINICAL: Palpable right breast lump. Comparison is made to exams dated: 10/31/2013 mammogram, 03/20/2023 mammogram, 05/12/2011 mammogram, 03/29/2010 mammogram, and 03/22/2010 mammogram - [facility]. Ultrasound of the right breast 10 o'clock region was performed. Valverde scale images of the real-time examination were reviewed. No significant abnormalities were seen sonographically in the right breast. Specifically, no finding to correspond to the patient's palpable abnormality. IMPRESSION: NEGATIVE There is no sonographic correlate to the patient's palpable abnormality and no evidence of malignancy. Return to annual mammogram screening schedule is recommended. Clinical follow up is recommended for symptoms as needed. Findings and recommendations were conveyed to the patient at time of exam. This exam was interpreted at Station ID: [id number]. Electronically Signed By: Tonia emerson/:03/20/2023 13:35:13 letter sent: Normal Exam Ultrasound BI-RADS: 1 Negative
--- NOTE | 2023-03-20 11:31 | DI.MG.S_ITS ---
BILATERAL DIGITAL DIAGNOSTIC MAMMOGRAM 3D/2D: 03/20/2023 CLINICAL: Breast Lump. Comparison is made to exams dated: 10/31/2013 mammogram, 05/12/2011 mammogram, and 03/29/2010 mammogram - [facility]. Both breasts are heterogeneously dense, which may obscure small masses (category c / 51-75% glandular tissue). There are several dystrophic, large zoila-like, punctate, and vascular calcifications in both breasts. No significant masses, calcifications, or other findings are seen in either breast. Specifically, no finding to correspond to the patient's palpable abnormality. IMPRESSION: INCOMPLETE: NEEDS ADDITIONAL IMAGING EVALUATION Mammograms are normal. There is no abnormality seen in the right breast to correspond with the palpable abnormality at 10 o'clock in the anterior depth. Ultrasound is recommended for full evaluation of this area. This was performed immediately following this exam. Based on the Tyrer Cuzick model (a risk assessment model) the patient's lifetime risk is 5.0% and her 10 year risk is 3.2%. According to the ACR, ACS, and NCCN guidelines, an annual breast MRI exam along with mammogram is recommended if the patient's lifetime risk is 20% or greater. This exam was interpreted at Station ID: [id number]. NOTE: For mammograms, a report in lay terms will be sent to the patient. Approximately 15% of breast malignancies will not be visualized mammographically. In the management of a palpable breast mass, a negative mammogram must not discourage biopsy of a clinically suspicious lesion. Electronically Signed By: Tonia emerson/:03/20/2023 12:55:28 ACR BI-RADS Category 0: Incomplete [id number]
== END ==
PROVIDERS: Family Provider Family Medicine; PCP Family Medicine; Referring Provider Family Medicine; Visit Provider Family Medicine
DX: N63.10 Unspecified lump in the right breast, unspecified quadrant; R92.2 Inconclusive mammogram
CPT/HCPCS: 76642; 77066; G0279

== ENCOUNTER → 2023-04-30 15:46 | Outpatient (CLI) | payer MEDICARE, MEDICAID, SELFPAY ==
[2022-01-22 22:38] VITALS: BMI 32.9
--- NOTE | 2023-04-30 15:50 | DI.RAD.S_ITS ---
PROCEDURE: XR CHEST 2V INDICATIONS: SOB TECHNIQUE: 2 views of the chest were acquired. COMPARISON: [facility], CR, XR CHEST 2V, 02/06/2021 FINDINGS: Surgical changes and devices: None. Lungs and pleura: Approximately 1.8 x 1.6 cm partially calcified lesion in the left hilum is again identified appearing similar to prior study from 02/06/2021. The 2 cm lesion more lateral to the as seen on prior study from 02/06/2021 is not clearly discernible on today's plain x-ray. Mediastinum: Slight elevation of the right hemidiaphragm again noted. Mediastinal contours are otherwise normal. Heart size is normal. Bones and chest wall: No suspicious bony abnormalities. Soft tissues appear unremarkable. IMPRESSION: 1. 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 This is likely benign. 2. The other 2 cm density lateral to it as seen on prior radiograph is not discernible today. Dictated by: Dilip Valle M.D. on 05/02/2023 at 9:14 Approved by: Dilip Valle M.D. on 05/02/2023 at 9:23
[2023-04-30 17:12] LABS: Add Manual Diff / Slide Review NO; Basophils Absolute Auto 0 /uL (0-100); Basophils Percent Auto 0.6 % (0-2); Eosinophils Absolute Auto 300 /uL (0-450); Eosinophils Percent Auto 3.2 % (2-4); Hematocrit 36.1 % (36-46); Hemoglobin 12.4 g/dL (12.0-16.0); Lymphocytes Absolute Auto 3200 /uL (1100-4500); Lymphocytes Percent Auto 40.3 % (25-40); Mean Corpuscular HGB Conc 34.2 % (30-36); Mean Corpuscular Hemoglobin 33.4 PG (26-34); Mean Corpuscular Volume 97.5 fL (80-100); Monocytes Absolute Auto 600 /uL (0-900); Monocytes Percent Auto 7.4 % (3-14); Neutrophils Absolute Auto 3800 /uL (1500-7000); Neutrophils Percent Auto 48.5 % (50-75); Platelet Count 143 X10^3/uL (150-400); Red Cell Distribution Width 15.2 % (11.6-14.8); White Blood Cell Count 7.9 X10^3/uL (4.5-11.0)
[2023-04-30 17:26] LABS: Alanine Aminotransferase 48 IU/L (<35); Albumin 4.2 g/dL (3.5-5.0); Albumin Globulin Ratio 1.4 (1.0-2.8); Alkaline Phosphatase 91 U/L (38-126); Aspartate Aminotransferase 60 IU/L (14-36); BUN Creatinine Ratio 36.9 (6-22); Bilirubin Total 0.6 mg/dL (0.2-1.3); Blood Urea Nitrogen 31 mg/dL (7-17); Carbon Dioxide 26 mmol/L (22-32); Chloride 96 mmol/L (98-107); Cholesterol 193 mg/dL (140-199); Estimated Glomerular Filt Rate > 60 mL/min (>60); Globulin 3.1 g/dL (1.7-4.1); Glucose 244 mg/dL (80-110); HDL Cholesterol 34 mg/dL (40-60); HEMOLYSIS 61 (0-50); LDL Cholesterol Calculated 99 mg/dL (<100); Potassium 4.6 mmol/L (3.4-5.1); Sodium 133 mmol/L (137-145); Total Protein 7.3 g/dL (6.3-8.2); Triglycerides 300 mg/dL (35-150)
== END ==
PROVIDERS: Family Provider Family Medicine; PCP Family Medicine; Referring Provider Family Medicine; Visit Provider Family Medicine
DX: E11.9 Type 2 diabetes mellitus without complications (principal); R06.02 Shortness of breath; R60.9 Edema, unspecified
CPT/HCPCS: 36415; 71046; 80053; 80061; 83036; 85025

== ENCOUNTER → 2023-05-02 11:51 | Outpatient (CLI) | payer MEDICARE, MEDICAID, SELFPAY ==
[2022-01-22 22:38] VITALS: BMI 32.9
[2023-05-02 16:28] LABS: Creatinine Urine Random 102.3 mg/dL
[2023-05-02 16:31] LABS: Microalbumi Creatinin Ratio Ur 76.2 ug/mg CR (<30); Microalbumin Urine Random 7.8 mg/dL (0-1.6)
== END ==
PROVIDERS: Family Provider Family Medicine; PCP Family Medicine; Referring Provider Family Medicine; Visit Provider Family Medicine
DX: E11.9 Type 2 diabetes mellitus without complications (principal)
CPT/HCPCS: 82043; 82570

== ENCOUNTER 2023-06-07 21:05 | Inpatient (IN) | payer MEDICARE, SELFPAY ==
[2023-05-21 09:07] VITALS: BMI 32.9
[2023-06-07] VITALS (10 sets, daily range): BP systolic 147–167; BP diastolic 74–89; PULSE 104–122; RESP 23–34; TEMP 37.2; O2SAT 92–95; BMI 44.6
[2023-06-07] MEDS: SODIUM CHLORIDE 0.9% 1,000 ML 1000 ML IV (21:30)
--- NOTE | 2023-06-07 21:38 | PC.NURSE ---
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 Rhythm strip printed and handed to Dr. Hanna. Patient reports no chest pain at this time, is SOB, which she came in with. Defibrillation pads on per Dr. Hanna. EKG was attempted by Javad DAY, unable to complete as patient does have tremors at baseline, worse now according to patient. Dr. Hanna notified. Patient reports feeling cold, warm blankets applied and patient is afebrile.
[2023-06-07 21:46] LABS: Add Manual Diff / Slide Review NO; Basophils Absolute Auto 100 /uL (0-100); Basophils Percent Auto 0.7 % (0-2); Eosinophils Absolute Auto 200 /uL (0-450); Eosinophils Percent Auto 2.1 % (2-4); Hematocrit 39.1 % (36-46); Lymphocytes Absolute Auto 1400 /uL (1100-4500); Lymphocytes Percent Auto 17.4 % (25-40); Mean Corpuscular HGB Conc 33.3 % (30-36); Mean Corpuscular Hemoglobin 32.7 PG (26-34); Mean Corpuscular Volume 98.4 fL (80-100); Monocytes Absolute Auto 600 /uL (0-900); Monocytes Percent Auto 7.4 % (3-14); Neutrophils Absolute Auto 5800 /uL (1500-7000); Neutrophils Percent Auto 72.4 % (50-75); Platelet Count 165 X10^3/uL (150-400); Red Blood Cell Count 3.97 X10^6/uL (4.0-5.2)
[2023-06-07 21:59] LABS: Lactate (Lactic Acid) 2.7 mmol/L (0.7-2.1)
[2023-06-07 22:01] LABS: Alanine Aminotransferase 40 IU/L (<35); Albumin 4.2 g/dL (3.5-5.0); Albumin Globulin Ratio 1.2 (1.0-2.8); Alkaline Phosphatase 102 U/L (38-126); Aspartate Aminotransferase 51 IU/L (14-36); BUN Creatinine Ratio 20.2 (6-22); Bilirubin Total 0.7 mg/dL (0.2-1.3); Blood Urea Nitrogen 17 mg/dL (7-17); Calcium 9.8 mg/dL (8.4-10.2); Carbon Dioxide 28 mmol/L (22-32); Chloride 99 mmol/L (98-107); Estimated Glomerular Filt Rate > 60 mL/min (>60); Globulin 3.4 g/dL (1.7-4.1); Glucose 276 mg/dL (80-110); HEMOLYSIS 25 (0-50); Lipase 117 U/L (23-300); Magnesium 1.2 mg/dL (1.6-2.3); Potassium 4.9 mmol/L (3.4-5.1); Sodium 136 mmol/L (137-145); Total Protein 7.6 g/dL (6.3-8.2)
--- NOTE | 2023-06-07 22:03 | ED_ITS ---
HPI - General Adult General Chief complaint: Weakness Stated complaint: weakness x1week Time Seen by Provider: 06/07/23 21:15 Source: patient, family and EMS Mode of arrival: EMS Limitations: no limitations History of Present Illness HPI narrative: 73-year-old female who brought in by EMS for evaluation of approximately 1 week of generalized weakness. She states it has been progressing over the past week. She also states she feels like she has having a urinary tract infection as she is having quite a bit of dysuria and urinary frequency. No vomiting. No fevers. She states that this evening got to the point where she could not even sit up in bed. She denies chest pain, shortness of breath. No sinus congestion or sore throat. No changes in bowel habits. Does have lower extremity swelling but this is baseline for her. Related Data Home Medications Medication Instructions Recorded Confirmed gabapentin 300 mg capsule 300 mg PO BID 03/12/23 04/30/23 Previous Rx's Medication Instructions Recorded indomethacin 25 mg capsule See Rx Instructions PO TID PRN 06/23/19 gout #40 caps allopurinol 300 mg tablet See Rx Instructions .Route 09/19/22 .COMPLEX #90 tabs lisinopril 10 mg tablet See Rx Instructions .Route 10/03/22 .COMPLEX #90 tabs divalproex 250 mg tablet,extended 250 mg PO BEDTIME #90 tabs 10/23/22 release 24 hr olanzapine 5 mg tablet 5 mg PO BEDTIME #90 tabs 10/23/22 DISABLED PARKING PLACARD #1 ea 11/24/22 atorvastatin 80 mg tablet 80 mg PO DAILY #90 tabs 01/26/23 levothyroxine 150 mcg tablet 150 mcg PO DAILY #90 tabs 01/26/23 (Synthroid) divalproex 500 mg tablet,extended 1,000 mg (2 x 500 mg) PO BEDTIME 03/12/23 release 24 hr (Depakote ER) 90 days #180 tabs Depends Incontinence supplies #100 ea 03/15/23 Prevail Plus pads #90 ea 03/15/23 clonidine HCl 0.1 mg tablet 0.2 mg (2 x 0.1 mg) PO BEDTIME #60 05/14/23 tabs oxybutynin chloride 5 mg tablet 5 mg PO BID #60 tabs 05/22/23 Allergies Allergy/AdvReac Type Severity Reaction Status Date / Time Sulfa (Sulfonamide Allergy Mild RASH Verified 05/22/23 10:19 Antibiotics) haloperidol [HALOPERIDOL] Allergy Unknown Verified 05/22/23 10:19 lithium [LITHIUM] Allergy Unknown Verified 05/22/23 10:19 risperidone [RISPERIDONE] Allergy Unknown Verified 05/22/23 10:19 lidocaine AdvReac Intermediate gait Verified 05/22/23 10:19 instability perphenazine AdvReac uncontrolled Verified 05/22/23 10:19 hand shaking Review of Systems Review of Systems ROS Unobtainable: All systems reviewed & are unremarkable except as noted in HPI and below Patient History Medical History Psychosis COVID-19 Bipolar 1 disorder, mixed, full remission Bipolar 1 disorder, depressed, partial remission Hyperlipidemia DM type 2 (diabetes mellitus, type 2) Bipolar I disorder, most recent episode depressed, severe without psychotic features Bipolar disorder (1989) Fractures (2007) Foot pain (~2002) Ankle pain (2007) Peripheral neuropathy (2013) Hayfever (~1989) Sleep apnea (08/2015) Hypertension Hypothyroidism Urinary incontinence Cataract (2011) Chicken pox Measles CTS (carpal tunnel syndrome) (1987) RLS (restless legs syndrome) (1999) Anxiety (1994) Depression (1961) Surgical History Anesthesia complication History of surgery (04/2008) History of carpal tunnel repair (~1997) Family History Child Age: 51 Arthritis Mother Heart disease Family history of fraternal twins Family history of identical twins Levin gestation with first Social History marital status: number of children: 2 household members: children lives independently: Yes caregiver/support person: No housing: house pets and animals: No education level: high school occupational status: unemployed leisure activities: reading and volunteer work other: walk,garden,visit friends,alevism,word puzzles seatbelt use: always water heater temp set < 120 deg: Yes working smoke detector in home: Yes fire extinguisher in home: Yes carbon monox detector in home: Yes Smoking Status: Never smoker second hand exposure: No alcohol intake: current substance use type: does not use during the past year weight has: other well-balanced diet: rarely or never daily servings fruits/ve-1 caffeine: Yes eating out: 1-3 times/week frequency: 3-4 times per week duration: 15-30 minutes/day Smoking Status: Never smoker alcohol intake frequency: holidays/special occasions only Substance Use Type: does not use Exam Initial Vital Signs Initial Vital Signs: Vital Signs Temperature 98.9 F 06/07/23 21:11 Pulse Rate 113 H 06/07/23 21:11 Respiratory Rate 26 H 06/07/23 21:11 Blood Pressure 147/87 H 06/07/23 21:11 Pulse Oximetry 95 06/07/23 21:11 Oxygen Delivery Method Room Air 06/07/23 21:11 Const General: cooperative and comfortable HENMT Head: normal to inspection Resp Effort & Inspection: tachypneic Auscultation: clear to auscultation bilaterally Cardio Rate: tachycardic Rhythm: regular rhythm GI Inspection: normal to inspection Skin General: no rashes or lesions noted Neuro General: patient alert and patient awake Extrem General: No edema Scores GCS [place] coma scale eye opening: Spontaneous [place] coma scale verbal response: Orientated [place] coma scale motor response: Obey commands [place] coma scale total score: 15 Course Orders Ordered: ED Orders 06/07/23 21:27 BNP [NT-proBNP (BNP-Adult 18+)] Stat Complete Blood Count AUTO DIFF Stat Comprehensive Metabolic Panel Stat Lactate (Lactic Acid) Stat Lipase Stat Magnesium Stat Procalcitonin Stat Troponin & CK Cardiac Panel Stat 06/07/23 21:37 Covid-19 + FLU A/B + RSV - PCR Stat 06/07/23 22:08 Blood Culture Stat 06/07/23 22:54 Urinalysis and Microscopic Stat Urine Culture Stat Acetaminophen (Acetaminophen 325 Mg Tablet) 650 mg PO Q6H PRN PRN Reason: Fever/Mild Pain (1-3) Atorvastatin Calcium (Atorvastatin 20 Mg Tablet) 80 mg PO DAILY GEO Clonidine HCl (Clonidine 0.1 Mg Tablet) 0.2 mg PO BEDTIME GEO Divalproex Sodium (Divalproex Er 250 Mg Tab) 1,250 mg PO BEDTIME GEO Enoxaparin Sodium (Enoxaparin 40 Mg/0.4 Ml Syringe) 40 mg SUBCUT DAILY [facility] Gabapentin (Gabapentin 300 Mg Capsule) 300 mg PO BID GEO Ceftriaxone Sodium 2,000 mg/ (Sodium Chloride) 100 mls @ 200 mls/hr IV Q24H GEO Dextrose (D10w) 100 mls @ 1,200 mls/hr IV PRN PRN PRN Reason: Hypoglycemia Sodium Chloride (Normal Saline 0.45%) 1,000 mls @ 150 mls/hr IV CONT GEO Insulin Human Lispro (Insulin Lispro 100 Unit/Ml 3ml Vial) 0 unit SUBCUT ACHS GEO; Protocol Levothyroxine Sodium (Levothyroxine 75 Mcg Tablet) 150 mcg PO 0600 [facility] Lisinopril (Lisinopril 10 Mg Tablet) 10 mg PO DAILY [facility] Naloxone HCl (Naloxone 0.4 Mg/Ml Vial) 0.2 mg IV Q2MIN PRN PRN Reason: Opiate Reversal Olanzapine (Olanzapine 2.5 Mg Tablet) 5 mg PO BEDTIME GEO Ondansetron HCl (Ondansetron 4 Mg/2 Ml Inj) 4 mg IV Q6HR PRN PRN Reason: Nausea And Vomiting Oxybutynin (Oxybutynin 5 Mg Tablet) 5 mg PO BID [facility] Oxycodone HCl (Oxycodone Ir 5 Mg Tablet) 5 mg PO Q3H PRN PRN Reason: Pain, Moderate (4-6) Oxycodone HCl (Oxycodone Ir 10 Mg Tablet) 10 mg PO Q3H PRN PRN Reason: Pain, Severe (7-10) Discontinued Medications Divalproex Sodium (Divalproex Er 250 Mg Tab) 250 mg PO BEDTIME [facility] Sodium Chloride (Normal Saline 0.9%) 1,000 mls @ 1,000 mls/hr IV BOLUS ONE Stop: 06/07/23 22:15 Last Infusion: 06/08/23 00:15 Dose: Infused Documented By: Admin: 06/07/23 21:30 Dose: 1,000 mls/hr Documented By: LINDA Magnesium Sulfate (Magnesium Sulfate) 2 gm in 50 mls @ 25 mls/hr IV NOW ONE Stop: 06/08/23 00:01 Last Infusion: 06/08/23 00:13 Dose: Infused Documented By: PADMA Co-signed By: LARISSA Admin: 06/07/23 22:13 Dose: 25 mls/hr Documented By: MORA Co-signed By: PADMA Ceftriaxone Sodium 1,000 mg/ (Sodium Chloride) 100 mls @ 200 mls/hr IV NOW ONE Stop: 06/07/23 22:03 Last Infusion: 06/07/23 22:44 Dose: Infused Documented By: Admin: 06/07/23 22:09 Dose: 200 mls/hr Documented By: MORA Non-Formulary Medication (Divalproex [Depakote Er]) 1,000 mg PO BEDTIME GEO Vital Signs Vital signs: Vital Signs - 8 hr 06/07/23 21:11 06/07/23 21:24 06/07/23 21:24 Temperature 98.9 F Pulse Rate 113 H 114 H Respiratory Rate 26 H Blood Pressure 147/87 H 163/81 H Pulse Oximetry 95 93 Oxygen Delivery Method Room Air Room Air 06/07/23 21:30 06/07/23 22:00 06/07/23 22:14 Temperature Pulse Rate 122 H 115 H Respiratory Rate 29 H 34 H Blood Pressure 152/89 H Pulse Oximetry 94 92 Oxygen Delivery Method Room Air Room Air 06/07/23 22:14 06/07/23 22:30 06/07/23 22:47 Temperature Pulse Rate 113 H 108 H Respiratory Rate 29 H 23 Blood Pressure 167/77 H Pulse Oximetry 93 94 Oxygen Delivery Method Room Air Room Air 06/07/23 22:47 06/07/23 23:00 Temperature Pulse Rate 118 H 106 H Respiratory Rate 28 H 24 Blood Pressure Pulse Oximetry 94 94 Oxygen Delivery Method Room Air Room Air Medical Decision Making Lab Data Lab results reviewed: Yes I reviewed the patient's lab results. 06/07/23 21:27 06/07/23 21:27 Labs: Lab Results 06/07/23 06/07/23 Range/Units 21:27 22:54 WBC 8.0 (4.5-11.0) X10^3/uL RBC 3.97 L (4.0-5.2) X10^6/uL Hgb 13.0 (12.0-16.0) g/dL Hct 39.1 (36-46) % MCV 98.4 (80-100) fL MCH 32.7 (26-34) PG MCHC 33.3 (30-36) % RDW 15.0 H (11.6-14.8) % Plt Count 165 (150-400) X10^3/uL Neut % (Auto) 72.4 (50-75) % Lymph % (Auto) 17.4 L (25-40) % Lamb % (Auto) 7.4 (3-14) % Eos % (Auto) 2.1 (2-4) % Baso % (Auto) 0.7 (0-2) % Neut # (Auto) 5800 (2295-2364) /uL Lymph # (Auto) 1400 (0672-1541) /uL Lamb # (Auto) 600 (0-900) /uL Eos # (Auto) 200 (0-450) /uL Baso # (Auto) 100 (0-100) /uL Sodium 136 L (137-145) mmol/L Potassium 4.9 (3.4-5.1) mmol/L Chloride 99 (98-107) mmol/L Carbon Dioxide 28 (22-32) mmol/L BUN 17 (7-17) mg/dL Creatinine 0.84 (0.52-1.04) mg/dL Estimated GFR > 60 (>60) mL/min BUN/Creatinine Ratio 20.2 (6-22) Glucose 276 H (80-110) mg/dL Lactate 2.7 H (0.7-2.1) mmol/L Calcium 9.8 (8.4-10.2) mg/dL Magnesium 1.2 L (1.6-2.3) mg/dL Total Bilirubin 0.7 (0.2-1.3) mg/dL AST 51 H (14-36) IU/L ALT 40 H (<35) IU/L Alkaline Phosphatase 102 (38-126) U/L Total Creatine Kinase 161 H (30-135) U/L Troponin I < 0.012 (0.01-0.034) ng/mL NT-Pro-B Natriuret Pep 83 (<125) pg/mL Total Protein 7.6 (6.3-8.2) g/dL Albumin 4.2 (3.5-5.0) g/dL Globulin 3.4 (1.7-4.1) g/dL Albumin/Globulin Ratio 1.2 (1.0-2.8) Lipase 117 (23-300) U/L Procalcitonin 0.11 (<0.5) ng/mL Urine Color Yellow Urine Appearance Slightly cloudy Urine pH 8.0 (4.5-8.0) Ur Specific [place] 1.020 (1.000-1.035) Urine Protein 2+ H (Negative) Urine Glucose (UA) 3+ H (Negative) g/dL Urine Ketones Negative (NEGATIVE) Urine Occult Blood Negative (Negative) Urine Nitrate Positive H (Negative) Urine Bilirubin Negative (NEGATIVE) Urine Urobilinogen 0.2 (0.2) E.U./dL Ur Leukocyte Esterase Negative (NEGATIVE) Urine RBC 0-1/hpf (0-5/HPF) Urine WBC 1-5/hpf (0-5/HPF) Ur Squamous Epith Cells 1-5 /hpf (0-5/HPF) Urine Bacteria Many (>30) H (None) Ur Culture Indicated? Specimen cultured Vol Urine Centrifuged 10ml (spun) Urine Dip Bedside Urine Glucose 1000 mg/dl Bedside Urine Bilirubin - Negative Bedside Urine Ketone - Negative Urine Specific [place] 1.015 Bedside Urine Occult Blood - Negative Bedside Urine pH 8.5 Bedside Urine Protein + 30 Bedside Urine Urobilinogen - Negative Bedside Urine Nitrite + Positive Bedside Urine Leukocytes - Negative Esterase Point of care testing: Urine Dip Bedside Urine Glucose 1000 mg/dl Bedside Urine Bilirubin - Negative Bedside Urine Ketone - Negative Urine Specific [place] 1.015 Bedside Urine Occult Blood - Negative Bedside Urine pH 8.5 Bedside Urine Protein + 30 Bedside Urine Urobilinogen - Negative Bedside Urine Nitrite + Positive Bedside Urine Leukocytes - Negative Esterase MDM Narrative Medical decision making narrative: Patient does have a nitrite positive urine. Is afebrile but is tachycardic and tachypneic. No leukocytosis. He was given fluids. Antibiotics administered. Cultures obtained. Patient did have 2 episodes of what potentially was torsades. Patient was asymptomatic during these episodes. I am not 100% convinced that it was torsades as there were other things going on at the time so it may have been artifact however the rhythm strip was somewhat concerning. Her magnesium was low. She was given magnesium. He was alert and oriented x3. Had a discussion with her regarding code status. Patient is full code. Plan will be to admit to the hospital for urinary tract infection and weakness. Discussed the case with Dr. Love who was on-call for the patient's primary doctor who will admit. Discussed the need for admission with the patient. She expressed understanding and agreement as well. Discharge Plan Departure Patient Disposition: Admitted As Inpatient Clinical Impression: Acute UTI, Weakness, Torsades de pointes Admit Date/Time: 06/07/23 23:24 Admit Provider: Farhan Love
[2023-06-07] MEDS: cefTRIAXone 1,000 MG in SODIUM CHLORIDE 0.9% 100 ML 200 MG IV (22:09)
[2023-06-07] MEDS: MAGNESIUM SULFATE 2 GM/50 ML PIGGYBACK IV (22:13)
[2023-06-07 22:17] LABS: Procalcitonin 0.11 ng/mL (<0.5)
[2023-06-07 22:26] LABS: Creatine Kinase 161 U/L (30-135)
[2023-06-07 22:36] LABS: NT-proBNP (BNP-Adult 18+) 83 pg/mL (<125)
[2023-06-07 22:39] LABS: Troponin I < 0.012 ng/mL (0.01-0.034)
[2023-06-07 23:02] LABS: Bilirubin Urine UA NEGATIVE (NEGATIVE); Color Urine UA YELLOW; Glucose Urine UA 3+ g/dL (Negative); Ketones Urine UA NEGATIVE (NEGATIVE); Leukocyte Esterase Urine UA NEGATIVE (NEGATIVE); Nitrite Urine UA POSITIVE (Negative); Occult Blood Urine UA NEGATIVE (Negative); Protein Urine UA 2+ (Negative); Urobilinogen Urine UA 0.2 E.U./dL (0.2)
[2023-06-07 23:03] LABS: Appearance Urine UA Slightly Cloudy
[2023-06-07 23:08] LABS: Reflexed Lactate in 2 Hours Y
[2023-06-07 23:09] LABS: Bacteria Urine Many (>30); Culture Indicated Urine Specimen Cultured; RBC Urine 0-1/HPF (0-5/HPF); Squamous Epithelial Cell Urine 1-5 /HPF (0-5/HPF); Urine Volume 10mL (spun); WBC Urine 1-5/HPF (0-5/HPF)
[2023-06-08] VITALS (31 sets, daily range): BP systolic 94–149; BP diastolic 46–74; PULSE 74–105; RESP 0–42; TEMP 36.6–37.8; O2SAT 89–98
[2023-06-08 01:32] LABS: Influenza A - CEPHEID Flu A NEGATIVE (NEGATIVE); Influenza B - CEPHEID Flu B NEGATIVE (NEGATIVE); Respiratory Syncytial Virus Negative (Negative)
[2023-06-08 01:34] LABS: COVID-19 CEPHEID 4-PLEX PCR POSITIVE (Negative)
--- NOTE | 2023-06-08 01:52 | PC.NURSE ---
Patient positive for Covid 19, Dr. Love notified by phone, no order received at this time.
[2023-06-08] MEDS: OLANZapine 2.5 MG TABLET 5 MG PO ×2 (02:14→21:00)
[2023-06-08] MEDS: cloNIDine 0.1 MG TABLET 0.2 MG PO ×2 (02:15→21:31)
[2023-06-08] MEDS: GABAPENTIN 300 MG CAPSULE PO ×3 (02:16→21:00)
[2023-06-08] MEDS: SODIUM CHLORIDE 0.45% 1,000 ML 150 ML IV ×4 (02:16→23:07)
[2023-06-08] MEDS: OXYCODONE IR 5 MG TABLET PO (02:25)
[2023-06-08] MEDS: OXYBUTYNIN 5 MG TABLET PO ×3 (02:25→21:00)
[2023-06-08 03:13] LABS: MRSA (Nasal) PCR Not Detected (Not Detect)
[2023-06-08] MEDS: LEVOTHYROXINE 75 MCG TABLET 150 MCG PO (06:00)
[2023-06-08 07:28] LABS: BUN Creatinine Ratio 18.1 (6-22); Blood Urea Nitrogen 15 mg/dL (7-17); Calcium 8.7 mg/dL (8.4-10.2); Carbon Dioxide 29 mmol/L (22-32); Chloride 102 mmol/L (98-107); Estimated Glomerular Filt Rate > 60 mL/min (>60); Glucose 216 mg/dL (80-110); HEMOLYSIS < 15 (0-50); Magnesium 1.5 mg/dL (1.6-2.3); Potassium 4.9 mmol/L (3.4-5.1); Sodium 132 mmol/L (137-145)
[2023-06-08] MEDS: INSULIN LISPRO 100 UNIT/ML 3ML VIAL SUBCUT ×4 (08:55→21:05)
[2023-06-08] MEDS: lisinopriL 10 MG TABLET PO (08:56)
[2023-06-08] MEDS: ATORVASTATIN 20 MG TABLET 80 MG PO (08:56)
[2023-06-08] MEDS: ENOXAPARIN 40 MG/0.4 ML SYRINGE SUBCUT ×2 (08:57→21:00)
[2023-06-08] MEDS: MAGNESIUM CHLORIDE 64 MG TABLET 128 MG PO (11:13)
--- NOTE | 2023-06-08 11:18 | CM.DANOTE ---
Initial DCP Assessment Note Pt is a 73 yo female, resident of [place], presents with persistent weakness, found to be COVID+ and admitted for further work up and medical management. PCP: Alina Corcoran Payer: Hussain [facility] Patient on COVID+ isolation precautions and sleeping soundly this morning. Met w/patient's daughter Lynne Guthrie P [phone] outside of patient's room. Patient lives with her daughter and her grandson, has 115 hours of [facility] caregiving. Patient's [employer] CM is Lauren Vasques P [phone]. Daughter works. [employer] CM working to get patient a ramp outside their home. Patient uses [employer] bus to go to the [facility] for meals a few days per week. According to daughter, patient leads a very sedentary lifestyle. Discussed HH services and daughter appreciative, states no agency preference. YOSEPH Meek, has kindly agreed to send a referral to [facility] based on soonest availability. F2F and HH order have been completed. Although patient likely has [facility] transport benefit, daughter prefers to transport patient home upon her discharge. Daughter would like patient to have a hospital bed and food stamps if available through [facility], family cannot pay to rent a hosp bed. Placed call to [employer] Albert P [phone], had to LM asking about hospital bed and food stamps (?) Updated that patient will have HH services RN/PT/OT/AUDITING CONTROL CLERK upon discharge. Plan: Discharge home w/family, [facility] and [facility] services anticipated, transport via daughter. CM team will plan to follow closely for coordination of discharge plan. 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 No History Provided By Family Member,Medical Record Prior Living Arrangements House Household Members children Type of transporation used prior to Relies on Others admit Independent with ADL's No Is patient alert and oriented? Yes Needs Assistance With Bathing,Grooming,Meal Prep, Managing Medications,Home Chores / Shopping Patient/Family Preference Home with Home Health Barriers to Discharge No Comment Home w/family, [employer] caregivers, [facility] services Discharge Plan Home with Home Health Transportation Arrangement Daughter Referrals Initiated Home Health SNF/HH Preference No HH agency preference
--- NOTE | 2023-06-08 12:30 | PT.IIE ---
Surgical History (Last Reviewed 03/15/22 @ 18:40 by ERNST ArmendarizP) Anesthesia complication History of carpal tunnel repair (~1997) History of surgery (04/2008) Medical History (Last Reviewed 06/08/23 @ 01:33 by Gabe Hanna DO) Ankle pain (2007) Anxiety (1994) Bipolar 1 disorder, depressed, partial remission Bipolar 1 disorder, mixed, full remission Bipolar disorder (1989) Bipolar I disorder, most recent episode depressed, severe without psychotic features Cataract (2011) Chicken pox COVID-19 CTS (carpal tunnel syndrome) (1987) Depression (1961) DM type 2 (diabetes mellitus, type 2) Foot pain (~2002) Fractures (2007) Hayfever (~1989) Hyperlipidemia Hypertension Hypothyroidism Measles Peripheral neuropathy (2013) Psychosis RLS (restless legs syndrome) (1999) Sleep apnea (08/2015) Urinary incontinence Physical Therapy Inpatient Evaluation/Re-Eval M1 PT/OT-IP Prior Functional Status Start: 06/08/23 14:28 Freq: NEEDED Status: Active Protocol: Document 06/08/23 12:30 AB (Rec: 06/08/23 14:43 AB [id number]) Medical Review Prior Functional Status Medical History Reviewed Yes Communication able to make needs known; pt usually has her eyes closed but able to answer questions but needs time to response Mobility and Gait pt stated that she was modified independent with all mobilities and ambulation without AD Social History Household Members children Living Arrangements House Number of Floors (Floors) Two Floors Number of Stairs To Enter/Railing? pt stays on the main level of the house has 2 steps to enter without rails and usually hold on to somebody to be able to do stairs Home Environment Standard Height Toilet,Tub/ Shower Home Equipment Front Wheel Walker,Straight Cane,Shower Seat with Backrest ,Hand Held Shower,Grab Bars In Shower Additional Social History Comment pt stated that she lives with her daughter and grandson M2 PT-IP Current Condition Start: 06/08/23 14:28 Freq: NEEDED Status: Active Protocol: Document 06/08/23 12:30 AB (Rec: 06/08/23 14:43 AB [id number]) Physical Therapy Current Condition Current Condition Evaluation Date 06/08/23 Treatment Diagnosis UTI; Covid; difficulty in walking Onset Date 06/07/23 M3 PT-IP Subjective Start: 06/08/23 14:28 Freq: NEEDED Status: Active Protocol: Document 06/08/23 12:30 AB (Rec: 06/08/23 14:43 AB [id number]) Subjective Physical Therapy Visit Type Type Initial Evaluation Visit Start Time 12:30 Visit Stop Time 13:15 Number of NETWORK LEAD Visits 0 Physical Therapy Visit Comments Patient Comments pt is agreeable to do PT M4 PT-IP Mobility and Gait Start: 06/08/23 14:28 Freq: NEEDED Status: Active Protocol: Document 06/08/23 12:30 AB (Rec: 06/08/23 14:43 AB [id number]) PT-Bed Mobility Assessment Supine to Sit Supine to Sit Maximum Assistance,Total Assistance,2 Person Assistance ,Head of Bed Elevated,Bedrails Scooting Scooting to Edge of Bed Dependent PT-Transfer Assessment Sit to and From Stand Sit to and from Stand Maximum Assistance,Total Assistance,2 Person Assistance ,Use of Upper Extremities Equipment Transfer Assistive Device Front Wheeled Walker Orthotic/Prosthetic Devices or Brace: No Transfers Transfer Destination Chair Transfer Technique Stand Pivot Transfer Ability Level of Assist Maximum Assistance,Total Assistance,2 Person Assistance ,Use of Upper Extremities Comments Mobility Comments pt supine in bed and agreeable to do PT. obtained PLOF and home set up from pt. pt is very soft spoken and needs time to respond. O2 sat with O2 on : 92% completed supine to sit x 3 attempts max A x 2 to total Ax 2 and max cues with HOB elevated. presentes with increase retrolean and inconsistent with following directions. pt is somnolent and needs time to respond. completed sit to stand max Ax 2 to total A x 2 and max cues. pivot transfer to chair using fWW max A x 2 to total A x 2 and max cues. requires max A for weight shifting to be able to move LE and pivot. positioned pt on the chair. total A x 2. call light and table placed within reach. Gait Assessment Comments Gait Comments unable at this time. PT-Balance Assessment Sitting Balance and Reactions Static Sitting Balance Ability Poor Dynamic Sitting Balance Ability Poor Standing Balance and Reactions Static Standing Balance Ability Poor Dynamic Standing Balance Ability Poor Device Used FWW M5 PT-IP Objective Assessments Start: 06/08/23 14:28 Freq: NEEDED Status: Active Protocol: Document 06/08/23 12:30 AB (Rec: 06/08/23 14:43 AB [id number]) Orientation Orientation/Cognition Level of Alertness Confusional State Orientation Name Safety Awareness Decreased Safety Awareness Memory Description Short Term Impaired Gross Range of Motion Lower Extremity ROM Assessment Within Functional Limits Strength Lower Extremity Strength Assessment Bilaterally Impaired Hip 2+/5 Knee 3-/5 Muscle Tone Muscle Tone WNL Yes M6 PT-IP Treatment Start: 06/08/23 14:28 Freq: NEEDED Status: Active Protocol: Document 06/08/23 12:30 AB (Rec: 06/08/23 14:43 AB [id number]) Physical Therapy Treatment Education Education Provided Safety M7 PT-IP Assessment and Plan Start: 06/08/23 14:28 Freq: NEEDED Status: Active Protocol: Document 06/08/23 12:30 AB (Rec: 06/08/23 14:43 AB [id number]) PT Summary Assessment and Plan Potential Rehabilitation Potential Fair Status of Condition at Evaluation Unstable Summary Impairments Pain,ROM,Strength,Balance, Coordination,Sensation,Tone, Cognition,Bed Mobility, Transfers,Gait,Activity Tolerance Assessment Summary pt is a 73 y/o F who is admitted to the hospital for UTI and also found to be Covid +. pt requiring max A x 2 to total AX 2 and max cues with all tasks and is unable to ambulate at this time. pt will require SNF rehab. Goals Bed Mobility Goal Minimal Assistance Transfer Goal Minimal Assistance,Front Wheeled Walker Gait Goal Minimal Assistance,Front Wheel Walker Gait Distance 50 Other Goals improve bed mobility, transfers, ambulation using FWW ~ 100 ft SBA up/down 2 steps using LRAD/OVERNIGHT BABYSITTER CGA Days to Meet Goals 10 Frequency of Treatment Frequency Of Treatment Once a Day Treatment Plan Physical Therapy Treatment Plan Bed Mobility Training,Transfer Training,Gait Training, Therapeutic Exercise,Balance Retraining,Discharge Planning, Hot or Cold Pack,Neuromuscular Re-ed,Coordination Retraining Precautions Other Precautions falls, Covid Recommendations To Nursing Amount of Assist Needed Mechanical Lift Discharge Recommendations PT Discharge Recommendations SNF Rehab Transportation Needs at Discharge Wheelchair/Cabulance,Stretcher /Ambulance
--- NOTE | 2023-06-08 14:06 | P.HP_ITS ---
History of Present Illness History of Present Illness Date Patient Seen: 06/08/23 Chief complaint: weakness x1week Narrative: Pt is a 73yo woman with bipolar disorder with frequent olivia and hx of psychotic features, DM type 2, HTN, hyperlipidemia, sleep apnea, hypothyroidism, and drug- induced extrapyramidal disorder who presented with progressively worsening weakness. The pt reports that for the last week she has been feeling weaker on a daily basis. She states that prior to presentation to the ED, she tried to rise from bed but wasn't able to and slouched to the floor. She denies hitting her head or falling. She denies any recent fevers, chills, abdominal pain, diarrhea, vomiting, nausea. She states she has had urinary frequency since March, and denies any current dysuria. She denies any recent chest pain or SOB. In the ED, the pt had a CXR completed that was negative. Lab work was unrevealing other than low magnesium. The pt was noted to be tachycardic. U/A was suggestive of UTI, and she was started on IV Ceftriaxone. [facility] Medical History Psychosis COVID-19 Bipolar 1 disorder, mixed, full remission Bipolar 1 disorder, depressed, partial remission Hyperlipidemia DM type 2 (diabetes mellitus, type 2) Bipolar I disorder, most recent episode depressed, severe without psychotic features Bipolar disorder (1989) Fractures (2007) Foot pain (~2002) Ankle pain (2007) Peripheral neuropathy (2013) Hayfever (~1989) Sleep apnea (08/2015) Hypertension Hypothyroidism Urinary incontinence Cataract (2011) Chicken pox Measles CTS (carpal tunnel syndrome) (1987) RLS (restless legs syndrome) (1999) Anxiety (1994) Depression (1961) Surgical History Anesthesia complication History of surgery (04/2008) History of carpal tunnel repair (~1997) Family History Child Age: 51 Arthritis Mother Heart disease Family history of fraternal twins Family history of identical twins Levin gestation with first Social History marital status: number of children: 2 household members: children lives independently: Yes caregiver/support person: No housing: house pets and animals: No education level: high school occupational status: unemployed leisure activities: reading and volunteer work other: walk,garden,visit friends,hoahaoism,word puzzles seatbelt use: always water heater temp set < 120 deg: Yes working smoke detector in home: Yes fire extinguisher in home: Yes carbon monox detector in home: Yes Smoking Status: Never smoker second hand exposure: No alcohol intake: current substance use type: does not use during the past year weight has: other well-balanced diet: rarely or never daily servings fruits/ve-1 caffeine: Yes eating out: 1-3 times/week frequency: 3-4 times per week duration: 15-30 minutes/day Meds Home Medications and Allergies Home Medications Medication Instructions Recorded Confirmed Type indomethacin 25 mg capsule See Rx Instructions PO TID PRN 06/23/19 06/08/23 Rx gout #40 caps allopurinol 300 mg tablet See Rx Instructions .Route 09/19/22 06/08/23 Rx .COMPLEX #90 tabs lisinopril 10 mg tablet See Rx Instructions .Route 10/03/22 06/08/23 Rx .COMPLEX #90 tabs divalproex 250 mg tablet,extended 250 mg PO BEDTIME #90 tabs 10/23/22 06/08/23 Rx release 24 hr olanzapine 5 mg tablet 5 mg PO BEDTIME #90 tabs 10/23/22 06/08/23 Rx DISABLED PARKING PLACARD #1 ea 11/24/22 06/08/23 Rx atorvastatin 80 mg tablet 80 mg PO DAILY #90 tabs 01/26/23 06/08/23 Rx levothyroxine 150 mcg tablet 150 mcg PO DAILY #90 tabs 01/26/23 06/08/23 Rx (Synthroid) divalproex 500 mg tablet,extended 1,000 mg (2 x 500 mg) PO BEDTIME 03/12/23 06/08/23 Rx release 24 hr (Depakote ER) 90 days #180 tabs gabapentin 300 mg capsule 300 mg PO BID 03/12/23 06/08/23 History Depends Incontinence supplies #100 ea 03/15/23 06/08/23 Rx Prevail Plus pads #90 ea 03/15/23 06/08/23 Rx clonidine HCl 0.1 mg tablet 0.2 mg (2 x 0.1 mg) PO BEDTIME #60 05/14/23 06/08/23 Rx tabs oxybutynin chloride 5 mg tablet 5 mg PO BID #60 tabs 05/22/23 06/08/23 Rx atorvastatin 40 mg tablet 40 mg PO DAILY 06/08/23 06/08/23 History Allergies Allergy/AdvReac Type Severity Reaction Status Date / Time Sulfa (Sulfonamide Allergy Mild RASH Verified 05/22/23 10:19 Antibiotics) haloperidol [HALOPERIDOL] Allergy Unknown Verified 05/22/23 10:19 lithium [LITHIUM] Allergy Unknown Verified 05/22/23 10:19 risperidone [RISPERIDONE] Allergy Unknown Verified 05/22/23 10:19 lidocaine AdvReac Intermediate gait Verified 05/22/23 10:19 instability perphenazine AdvReac uncontrolled Verified 05/22/23 10:19 hand shaking Exam Vital Signs (past 8 hours): - 06/08/23 07:00 06/08/23 07:00 06/08/23 07:00 Temperature Pulse Rate Respiratory Rate Blood Pressure 111/56 L Pulse Oximetry 96 Oxygen Delivery Method Oximask CPAP Oximask Oxygen Flow Rate 2 06/08/23 07:00 06/08/23 07:34 06/08/23 07:34 Temperature Pulse Rate 92 H 87 Respiratory Rate 42 H 38 H Blood Pressure 109/55 L Pulse Oximetry 89 L 89 L Oxygen Delivery Method Oxygen Flow Rate 06/08/23 08:00 06/08/23 08:00 06/08/23 09:00 Temperature 98.0 F Pulse Rate 89 Respiratory Rate 41 H Blood Pressure 117/55 L 114/57 L Pulse Oximetry 96 Oxygen Delivery Method Oxygen Flow Rate 06/08/23 09:00 06/08/23 11:45 Temperature Pulse Rate 91 H Respiratory Rate 41 H Blood Pressure Pulse Oximetry 91 Oxygen Delivery Method CPAP Oximask Oxygen Flow Rate Fraction of Inspired Oxygen 28 SaO2/FiO2 Ratio 335 Oxygen Delivery Method CPAP,Oximask Oxygen Flow Rate 2 Narrative Exam Narrative: Gen: NAD, sitting comfortably in chair, appears slightly disheveled HEENT: normocephalic, atraumatic, sclera clear Neck: no LAD CV: RRR, no murmurs Resp: clear to auscultation bilaterally Abd: soft, nontender, normoactive bowel sounds, no rebound/guarding/rigidity Ext: 2+ pitting edema stable from prior Neuro: tremor present as baseline, no gross deficits Objective Labs 06/07/23 21:27 06/08/23 06:36 Labs: Laboratory Results - last 24 hr 06/07/23 06/07/23 06/07/23 21:27 22:54 23:35 WBC 8.0 RBC 3.97 L Hgb 13.0 Hct 39.1 MCV 98.4 MCH 32.7 MCHC 33.3 RDW 15.0 H Plt Count 165 Neut % (Auto) 72.4 Lymph % (Auto) 17.4 L [place] % (Auto) 7.4 Eos % (Auto) 2.1 Baso % (Auto) 0.7 Neut # (Auto) 5800 Lymph # (Auto) 1400 Norman # (Auto) 600 Eos # (Auto) 200 Baso # (Auto) 100 Sodium 136 L Potassium 4.9 Chloride 99 Carbon Dioxide 28 BUN 17 Creatinine 0.84 Estimated GFR > 60 BUN/Creatinine Ratio 20.2 Glucose 276 H Lactate 2.7 H 2.0 Calcium 9.8 Magnesium 1.2 L Total Bilirubin 0.7 AST 51 H ALT 40 H Alkaline Phosphatase 102 Total Creatine Kinase 161 H Troponin I < 0.012 NT-Pro-B Natriuret Pep 83 Total Protein 7.6 Albumin 4.2 Globulin 3.4 Albumin/Globulin Ratio 1.2 Lipase 117 Procalcitonin 0.11 Urine Color Yellow Urine Appearance Slightly cloudy Urine pH 8.0 Ur Specific [place] 1.020 Urine Protein 2+ H Urine Glucose (UA) 3+ H Urine Ketones Negative Urine Occult Blood Negative Urine Nitrate Positive H Urine Bilirubin Negative Urine Urobilinogen 0.2 Ur Leukocyte Esterase Negative Urine RBC 0-1/hpf Urine WBC 1-5/hpf Ur Squamous Epith Cells 1-5 /hpf Urine Bacteria Many (>30) H Ur Culture Indicated? Specimen cultured Vol Urine Centrifuged 10ml (spun) Nasal Screen MRSA (PCR) SARS-CoV-2 (PCR) Influenza A (RT-PCR) Influenza B (RT-PCR) RSV (PCR) 06/08/23 06/08/23 06/08/23 00:31 00:45 06:36 WBC RBC Hgb Hct MCV MCH MCHC RDW Plt Count Neut % (Auto) Lymph % (Auto) [place] % (Auto) Eos % (Auto) Baso % (Auto) Neut # (Auto) Lymph # (Auto) [place] # (Auto) Eos # (Auto) Baso # (Auto) Sodium 132 L Potassium 4.9 Chloride 102 Carbon Dioxide 29 BUN 15 Creatinine 0.83 Estimated GFR > 60 BUN/Creatinine Ratio 18.1 Glucose 216 H Lactate Calcium 8.7 Magnesium 1.5 L Total Bilirubin AST ALT Alkaline Phosphatase Total Creatine Kinase Troponin I NT-Pro-B Natriuret Pep Total Protein Albumin Globulin Albumin/Globulin Ratio Lipase Procalcitonin Urine Color Urine Appearance Urine pH Ur Specific [place] Urine Protein Urine Glucose (UA) Urine Ketones Urine Occult Blood Urine Nitrate Urine Bilirubin Urine Urobilinogen Ur Leukocyte Esterase Urine RBC Urine WBC Ur Squamous Epith Cells Urine Bacteria Ur Culture Indicated? Vol Urine Centrifuged Nasal Screen MRSA (PCR) Not detected SARS-CoV-2 (PCR) Positive H Influenza A (RT-PCR) Flu a negative Influenza B (RT-PCR) Flu b negative RSV (PCR) Negative Assessment & Plan Assessment & Plan narrative: Pt is a 73yo woman with bipolar disorder with frequent olivia and hx of psychotic features, DM type 2, HTN, gout, hyperlipidemia, sleep apnea, hypothyroidism, and drug-induced extrapyramidal disorder who presented with progressively worsening weakness. Found to have likely UTI in the ED. 1) UTI: No evidence of sepsis at this time, most likely contributor to weakness. - Continue daily Ceftriaxone IV - Continue mIVF for now - F/U urine cultures - PT to start tomorrow 2) DM Type 2: Uncontrolled with recent A1C of 11.0. Pt started on Metformin in clinic on 05/22. - Hold Metformin - Start Lantus 10 units nightly - ACHS sugar checks - Medium dose sliding scale short acting coverage 3) Bipolar disorder: Mood currently stable. - Continue home Depakote, Olanzapine, Clonidine 4) HTN: BP in acceptable range, if anything borderline low - Continue home Lisinopril, may need to hold if persistently < 110/70 - Continue home Atorvastatin 5) Hypothyroidism: - Continue home Levothyroxine 6) Gout: - Continue home Allopurinol FEN: Carb controlled diet DVT ppx: Lovenox Code: Full Dispo: Pending return of urine culture, improvement in strength. Quality VTE Deep Vein Thrombosis/Pulmonary Embolism Present on Admission: No
[2023-06-08] MEDS: DIVALPROEX ER 250 MG TAB 1250 MG PO (20:58)
[2023-06-08] MEDS: INSULIN GLARGINE 100 UNIT/ML 3ML PEN 10 UNIT SUBCUT (21:07)
[2023-06-08] MEDS: cefTRIAXone 2,000 MG in SODIUM CHLORIDE 0.9% 100 ML 200 MG IV (21:20)
[2023-06-09] VITALS (7 sets, daily range): BP systolic 120–127; BP diastolic 61–63; PULSE 70–77; RESP 16–20; TEMP 37–38.2; O2SAT 95–99
[2023-06-09] MEDS: OXYCODONE IR 5 MG TABLET PO (00:57)
[2023-06-09] MEDS: LEVOTHYROXINE 75 MCG TABLET 150 MCG PO (05:06)
[2023-06-09] MEDS: SODIUM CHLORIDE 0.45% 1,000 ML 150 ML IV (05:52)
[2023-06-09] MEDS: INSULIN LISPRO 100 UNIT/ML 3ML VIAL SUBCUT ×2 (08:11→12:22)
[2023-06-09] MEDS: ENOXAPARIN 40 MG/0.4 ML SYRINGE SUBCUT (08:12)
[2023-06-09] MEDS: lisinopriL 10 MG TABLET PO (08:13)
[2023-06-09] MEDS: allopurinoL 100 MG TABLET 300 MG PO (08:13)
[2023-06-09] MEDS: ATORVASTATIN 20 MG TABLET 80 MG PO (08:13)
[2023-06-09] MEDS: ACETAMINOPHEN 325 MG TABLET 650 MG PO (08:13)
[2023-06-09] MEDS: OXYBUTYNIN 5 MG TABLET PO (08:13)
[2023-06-09] MEDS: GABAPENTIN 300 MG CAPSULE PO (08:14)
[2023-06-09 09:36] LABS: Add Manual Diff / Slide Review NO; Basophils Absolute Auto 0 /uL (0-100); Basophils Percent Auto 0.6 % (0-2); Eosinophils Absolute Auto 100 /uL (0-450); Eosinophils Percent Auto 1.3 % (2-4); Hematocrit 31.8 % (36-46); Hemoglobin 10.6 g/dL (12.0-16.0); Lymphocytes Absolute Auto 2300 /uL (1100-4500); Mean Corpuscular HGB Conc 33.4 % (30-36); Mean Corpuscular Volume 98.7 fL (80-100); Monocytes Absolute Auto 900 /uL (0-900); Monocytes Percent Auto 12.9 % (3-14); Neutrophils Absolute Auto 3500 /uL (1500-7000); Neutrophils Percent Auto 51.2 % (50-75); Platelet Count 121 X10^3/uL (150-400); Red Blood Cell Count 3.22 X10^6/uL (4.0-5.2); White Blood Cell Count 6.8 X10^3/uL (4.5-11.0)
[2023-06-09 09:43] LABS: Alanine Aminotransferase 25 IU/L (<35); Albumin 3.3 g/dL (3.5-5.0); Albumin Globulin Ratio 1.1 (1.0-2.8); Alkaline Phosphatase 70 U/L (38-126); Aspartate Aminotransferase 32 IU/L (14-36); BUN Creatinine Ratio 20.9 (6-22); Bilirubin Total 0.5 mg/dL (0.2-1.3); Blood Urea Nitrogen 18 mg/dL (7-17); Calcium 8.4 mg/dL (8.4-10.2); Carbon Dioxide 25 mmol/L (22-32); Chloride 103 mmol/L (98-107); Estimated Glomerular Filt Rate > 60 mL/min (>60); Globulin 2.9 g/dL (1.7-4.1); Glucose 201 mg/dL (80-110); HEMOLYSIS < 15 (0-50); Magnesium 1.4 mg/dL (1.6-2.3); Potassium 4.9 mmol/L (3.4-5.1); Sodium 131 mmol/L (137-145); Total Protein 6.2 g/dL (6.3-8.2)
[2023-06-09] MEDS: MAGNESIUM CHLORIDE 64 MG TABLET 128 MG PO (11:03)
--- NOTE | 2023-06-09 11:06 | P.DS_ITS ---
History of Present Illness History of Present Illness Date Patient Seen: 06/09/23 Time Patient Seen: 10:17 Chief complaint: weakness x1week Discharge Providers Provider Date of admission: 06/07/23 23:24 Discharge Date: 06/09/23 Primary care physician: Alina Corcoran MD Consults: 06/08/23 00:48 Consult to Physical Therapy Evaluate & Treat Comment: Physician Instructions: Evaluate and Treat 06/08/23 16:02 Consult to Physical Therapy Evaluate & Treat Comment: Physician Instructions: Evaluate and Treat Discharge provider: Trinidad Abid MD Summary Hospital Course Discharge Diagnosis: UTI Hospital Course: Pt is a 73 yo F with hx of bipolar disorder with frequent olivia and hx of psychotic features, DM type 2, HTN, hyperlipidemia, sleep apnea, hypothyroidism, and drug-induced extrapyramidal disorder who presented with progressively worsening weakness. Lab work and CXR were largely reassuring aside from low mag which was releated and UA. She was found to have a UTI on arrival to the ED. She was started on IV ceftriaxone and admitted for monitoring. weakness and confusion improved and pt was felt to be at her baseline. Urine culture resulted with Pansensitive E. coli. Pt was discharged home with 4 more days worth of Nitrofurantoin to complete a 5 day total course of antibitocs. Return precautions were reviewed. During admission, pt was incidentally found to be COVID positive but did not have respiratory sx. She was placed on oxygen briefly while sleeping but this was thought to be related to obstruction rather than COVID sx as O2 level was within normal range while awake. All home medications for Bipolar DO and drug induced extrapyramidal sx were continued on arrival and no adjustments were made during admission. For DM2 management, home Metformin was held on arrival and glucoses were managed with lantus and SSI. On discharge, she was counseled to return ot Metformin dosing and f/up with PCP for further Metformin titration as needed Status at Discharge Cognitive/behavioral status at discharge: at baseline, oriented Time Spent with Patient Time spent: Less than 30 minutes Exam Vital Signs (past 8 hours): - 06/09/23 05:00 06/09/23 07:00 06/09/23 07:00 Temperature 98.7 F Pulse Rate 70 Respiratory Rate 20 Blood Pressure 120/61 Pulse Oximetry 99 98 Oxygen Delivery Method Nasal Cannula Nasal Cannula CPAP Oximask Oxygen Flow Rate 2 03/02/24 07:45 06/09/23 08:13 06/09/23 08:43 Temperature 100.4 F H 100.7 F H 98.6 F Pulse Rate 77 Respiratory Rate 16 Blood Pressure 127/63 Pulse Oximetry 96 Oxygen Delivery Method Oxygen Flow Rate 2 06/09/23 08:45 06/09/23 09:14 Temperature 98.7 F Pulse Rate Respiratory Rate Blood Pressure Pulse Oximetry 95 Oxygen Delivery Method Nasal Cannula Oxygen Flow Rate 2 Fraction of Inspired Oxygen 28 SaO2/FiO2 Ratio 335 Oxygen Delivery Method Nasal Cannula Oxygen Flow Rate 2 Narrative Exam Narrative: GEN: Chronically ill appearing, no sign of acute illness, NAD, watching a movie in bed HEENT: -Head: NC/AT -Eyes: No discharge or redness CV: warm and well perfused LUNGS: breathing comfortably on RA SKIN: Warm, well perfused. No skin rashes or abnormal lesions NEURO: No focal deficits. Tremor noted but thought to be at baseline Objective Labs 06/09/23 09:23 06/09/23 09:23 Labs: Laboratory Results - last 24 hr 06/09/23 09:23 WBC 6.8 RBC 3.22 L Hgb 10.6 L Hct 31.8 L MCV 98.7 MCH 33.0 MCHC 33.4 RDW 15.0 H Plt Count 121 L Neut % (Auto) 51.2 D Lymph % (Auto) 34.0 [place] % (Auto) 12.9 Eos % (Auto) 1.3 L Baso % (Auto) 0.6 Neut # (Auto) 3500 Lymph # (Auto) 2300 [place] # (Auto) 900 Eos # (Auto) 100 Baso # (Auto) 0 Sodium 131 L Potassium 4.9 Chloride 103 Carbon Dioxide 25 BUN 18 H Creatinine 0.86 Estimated GFR > 60 BUN/Creatinine Ratio 20.9 Glucose 201 H Calcium 8.4 Magnesium 1.4 L Total Bilirubin 0.5 AST 32 ALT 25 Alkaline Phosphatase 70 Total Protein 6.2 L Albumin 3.3 L Globulin 2.9 Albumin/Globulin [facility].1 [facility] Medical History Psychosis COVID-19 Bipolar 1 disorder, mixed, full remission Bipolar 1 disorder, depressed, partial remission Hyperlipidemia DM type 2 (diabetes mellitus, type 2) Bipolar I disorder, most recent episode depressed, severe without psychotic features Bipolar disorder (1989) Fractures (2007) Foot pain (~2002) Ankle pain (2007) Peripheral neuropathy (2013) Hayfever (~1989) Sleep apnea (08/2015) Hypertension Hypothyroidism Urinary incontinence Cataract (2011) Chicken pox Measles CTS (carpal tunnel syndrome) (1987) RLS (restless legs syndrome) (1999) Anxiety (1994) Depression (196) Surgical History Anesthesia complication History of surgery (04/2008) History of carpal tunnel repair (~1997) Family History Child Age: 51 Arthritis Mother Heart disease Family history of fraternal twins Family history of identical twins Levin gestation with first Social History marital status: number of children: 2 household members: children lives independently: Yes caregiver/support person: No housing: house pets and animals: No education level: high school occupational status: unemployed leisure activities: reading and volunteer work other: walk,garden,visit friends,latter day,word puzzles seatbelt use: always water heater temp set < 120 deg: Yes working smoke detector in home: Yes fire extinguisher in home: Yes carbon monox detector in home: Yes Smoking Status: Never smoker second hand exposure: No alcohol intake: current substance use type: does not use during the past year weight has: other well-balanced diet: rarely or never daily servings fruits/ve-1 caffeine: Yes eating out: 1-3 times/week frequency: 3-4 times per week duration: 15-30 minutes/day Discharge Assessment & Plan Assessment and Plan Assessment: 1. Pansensitive E. coli UTI: - dc home on Nitrofurantoin 500mg ER BID to complete 5 day total course - f/up with PCP in 1 week if sx not resolved completely 2. DM2: - restart Metformin 500mg BID - F/up with PCP for side effects and to titrate up as needed - Carb consistent diet 3. COVID: though to be incidental, no respiratry complaints, CXR negative 4. Bipolar disorder: - Continue home Depakote, Olanzapine, Clonidine 5. HTN: - Continue home Lisinopril - Continue home Atorvastatin 6. Hypothyroidism: - Continue home Levothyroxine 7. Gout: - Continue home Allopurinol Discharge Plan Discharge Plan Patient Disposition: Home Provider Discharge Comment: Upcoming appointments: 08/22/23 at 11:30 Ambulatory Office [facility] - Alina Salazar MD 07/09/23 at 13:00 Ambulatory Office [facility] Satish Eason MD Make sure to start taking your antibiotic tonight. This is Nitrofurantoin and will help continue to treat your UTI. Discharge orders & Medications Prescriptions: New nitrofurantoin macrocrystal 100 mg capsule 100 mg PO Q12H Qty: 6 0RF Rx Instructions: extended release caps. must administer with a meal/food metformin 500 mg tablet 500 mg PO BID Qty: 60 0RF Continued oxybutynin chloride 5 mg tablet 5 mg PO BID Qty: 60 0RF (DME) DISABLED PARKING PLACARD See Rx Instructions .Route .MEDSUPPLY Qty: 1 0RF Rx Instructions: 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 divalproex 250 mg tablet extended release 24 hr 250 mg PO BEDTIME Qty: 90 3RF Rx Instructions: To be taken with two 500 mg tabs for MDD 1250 mg olanzapine 5 mg tablet 5 mg PO BEDTIME Qty: 90 3RF divalproex [Depakote ER] 500 mg tablet extended release 24 hr 1,000 mg PO BEDTIME 90 Days Qty: 180 1RF gabapentin 300 mg capsule 300 mg PO BID clonidine HCl 0.1 mg tablet 0.2 mg PO BEDTIME Qty: 60 2RF indomethacin 25 mg capsule See Rx Instructions PO TID PRN (Reason: gout) Qty: 40 0RF Dose Instruction: Take 1 to 2 tabs three times daily for GOUT pain PO TID; administer with food or milk Rx Instructions: Take 1 to 2 tabs three times daily for GOUT pain PO three times a day PRN; allopurinol 300 mg tablet See Rx Instructions .ROUTE .COMPLEX Qty: 90 2RF Dose Instruction: TAKE 1 TABLET BY MOUTH DAILY FOR GOUT Rx Instructions: TAKE 1 TABLET BY MOUTH DAILY FOR GOUT lisinopril 10 mg tablet See Rx Instructions .ROUTE .COMPLEX Qty: 90 2RF Dose Instruction: TAKE 1 TABLET DAILY Rx Instructions: TAKE 1 TABLET DAILY atorvastatin 80 mg tablet 80 mg PO DAILY Qty: 90 2RF levothyroxine [Synthroid] 150 mcg tablet 150 mcg PO DAILY Qty: 90 3RF (DME) Depends Incontinence supplies XL See Rx Instructions .Route .MEDSUPPLY Qty: 100 3RF Rx Instructions: for three times daily changes (DME) Prevail Plus pads 6 See Rx Instructions .Route .MEDSUPPLY Qty: 90 3RF Rx Instructions: As directed atorvastatin 40 mg tablet 40 mg PO DAILY Follow up/Referrals: Alina Corcoran MD [Primary Care Provider] - Visit Report/Discharge Packet Stand Alone Forms: Patient Portal/API, Stroke Signs & Symptoms Discharge Data Primary Care Provider: Alina Corcoran Quality VTE Deep Vein Thrombosis/Pulmonary Embolism Present on Admission: No
--- NOTE | 2023-06-09 11:38 | CM.DPNOTE ---
Addendum entered by RAFA Martinez 06/09/23 11:42: ADD: Emailed DC Summary to Maida at [facility] Maida Ferreira <[email or web address]> Original Note: DC Note Patient has been discharged home today w/family. Placed call to Maida at [facility] P [phone] to update. IMM provided to patient. Plan: Discharge home w/family, [facility], resumption of [facility] caregivers, family to transport. DEVORA
== END 2023-06-09 13:19 | disposition home health service (06) | DRG 689 ==
LOC: ED 21:27 → AC 23:26 → ICU 23:50
PROVIDERS: Admitting Provider Internal Medicine; Emergency Provider Emergency Medicine; Family Provider Family Medicine; PCP Family Medicine; Referring Provider Emergency Medicine; Visit Provider Family Medicine
DX: N39.0 Urinary tract infection, site not specified (principal); U07.1 COVID-19; I47.21 Torsades de pointes; I10 Essential (primary) hypertension; F31.9 Bipolar disorder, unspecified; E03.9 Hypothyroidism, unspecified; M10.9 Gout, unspecified; B96.20 Unspecified Escherichia coli [E. coli] as the cause of diseases classified elsewhere; G47.30 Sleep apnea, unspecified; E78.5 Hyperlipidemia, unspecified; Z79.84 Long term (current) use of oral hypoglycemic drugs
CPT/HCPCS: 0241U; 36415; 80048; 80053; 81001; 81003; 82550; 82962; 83605; 83690; 83735; 83880; 84145; 84484; 85025; 87040; 87077; 87086; 87186; 87797; 94660; 94760; 96365; 96366; 96367; 97163; 97530; 99222; 99238; 99284; J0696; J1650; J1815; J3475; J7050

== ENCOUNTER → 2023-06-27 12:26 | Outpatient (CLI) | payer MEDICARE, SELFPAY ==
[2023-06-07 23:35] VITALS: BMI 44.6
== END ==
PROVIDERS: Family Provider Family Medicine; PCP Family Medicine; Visit Provider Family Medicine
DX: N39.0 Urinary tract infection, site not specified (principal)
CPT/HCPCS: 87086

== ENCOUNTER 2023-07-23 15:29 | Emergency (ER) | payer MEDICARE, MEDICAID, SELFPAY ==
[2023-06-07 23:35] VITALS: BMI 44.6
[2023-07-23] VITALS (8 sets, daily range): BP systolic 128–143; BP diastolic 58–81; PULSE 69–86; RESP 16; TEMP 36.7; O2SAT 91–96; BMI 43.4
--- NOTE | 2023-07-23 15:40 | DI.RAD.S_ITS ---
PROCEDURE: XR CHEST 1V INDICATIONS: chest pain TECHNIQUE: One view of the chest was acquired. COMPARISON: [facility], CR, XR CHEST 2V, 02/06/2021, 22:47. [facility], CR, XR CHEST 2V, 04/30/2023, 16:16. FINDINGS: Surgical changes and devices: None. 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 Lungs are clear. No pleural effusions or pneumothorax. Mediastinum: Mediastinal contours appear normal. Heart size is normal. Bones and chest wall: No suspicious bony lesions. Overlying soft tissues appear unremarkable. IMPRESSION: No acute cardiopulmonary abnormality is seen. Approved by: Hiram Ibrahim M.D. on 07/23/2023 at 16:56
[2023-07-23 16:01] LABS: INR 0.9 (0.9-1.3); Prothrombin Time 10.6 SECONDS (9.4-12.5)
[2023-07-23 16:04] LABS: PTT Partial Thromboplastin Tim 31 SECONDS (25.1-36.5)
[2023-07-23 16:06] LABS: Alanine Aminotransferase 31 IU/L (<35); Albumin 4.4 g/dL (3.5-5.0); Albumin Globulin Ratio 1.8 (1.0-2.8); Alkaline Phosphatase 84 U/L (38-126); Aspartate Aminotransferase 50 IU/L (14-36); Bilirubin Total 0.6 mg/dL (0.2-1.3); Blood Urea Nitrogen 23 mg/dL (7-17); Carbon Dioxide 28 mmol/L (22-32); Chloride 104 mmol/L (98-107); Creatine Kinase 114 U/L (30-135); Estimated Glomerular Filt Rate > 60 mL/min (>60); Globulin 2.5 g/dL (1.7-4.1); Glucose 228 mg/dL (80-110); HEMOLYSIS < 15 (0-50); Lipase 94 U/L (23-300); Magnesium 1.3 mg/dL (1.6-2.3); Potassium 4.4 mmol/L (3.4-5.1); Sodium 138 mmol/L (137-145); Total Protein 6.9 g/dL (6.3-8.2)
[2023-07-23 16:08] LABS: Add Manual Diff / Slide Review NO; Basophils Absolute Auto 0 /uL (0-100); Basophils Percent Auto 0.7 % (0-2); Eosinophils Absolute Auto 200 /uL (0-450); Hematocrit 36.6 % (36-46); Hemoglobin 12.2 g/dL (12.0-16.0); Lymphocytes Absolute Auto 2900 /uL (1100-4500); Lymphocytes Percent Auto 47.6 % (25-40); Mean Corpuscular HGB Conc 33.3 % (30-36); Mean Corpuscular Hemoglobin 33.1 PG (26-34); Mean Corpuscular Volume 99.3 fL (80-100); Monocytes Absolute Auto 400 /uL (0-900); Monocytes Percent Auto 6.1 % (3-14); Neutrophils Absolute Auto 2600 /uL (1500-7000); Neutrophils Percent Auto 42.6 % (50-75); Platelet Count 169 X10^3/uL (150-400); Red Blood Cell Count 3.68 X10^6/uL (4.0-5.2); Red Cell Distribution Width 16.1 % (11.6-14.8); White Blood Cell Count 6.1 X10^3/uL (4.5-11.0)
[2023-07-23 16:17] LABS: Troponin I < 0.012 ng/mL (0.01-0.034)
[2023-07-23 17:02] LABS: TSH w/ Reflex to FT4 1.79 uIU/mL (0.47-4.68)
--- NOTE | 2023-07-23 18:12 | ED_ITS ---
HPI - Weakness General Chief complaint: Weakness Stated complaint: GLF Time Seen by Provider: 07/23/23 17:55 Source: patient and EMS Mode of arrival: EMS History of Present Illness HPI Narrative: 73-year-old female presents by EMS from home for generalized weakness. Patient states that she tried to get out of bed but could not and slid to the floor. She denies hitting her head, denies loss of consciousness. Patient feels weak all over, denies focal deficits. Lives at home with daughter, who helps provide care for her. Related Data Home Medications Medication Instructions Recorded Confirmed atorvastatin 40 mg tablet 40 mg PO DAILY 06/08/23 06/27/23 gabapentin 300 mg capsule See Rx Instructions .Route .COMPLEX 07/09/23 07/09/23 Previous Rx's Medication Instructions Recorded indomethacin 25 mg capsule See Rx Instructions PO TID PRN 06/23/19 gout #40 caps allopurinol 300 mg tablet See Rx Instructions .Route 09/19/22 .COMPLEX #90 tabs lisinopril 10 mg tablet See Rx Instructions .Route 10/03/22 .COMPLEX #90 tabs divalproex 250 mg tablet,extended 250 mg PO BEDTIME #90 tabs 10/23/22 release 24 hr olanzapine 5 mg tablet 5 mg PO BEDTIME #90 tabs 10/23/22 DISABLED PARKING PLACARD #1 ea 11/24/22 atorvastatin 80 mg tablet 80 mg PO DAILY #90 tabs 01/26/23 levothyroxine 150 mcg tablet 150 mcg PO DAILY #90 tabs 01/26/23 (Synthroid) divalproex 500 mg tablet,extended 1,000 mg (2 x 500 mg) PO BEDTIME 03/12/23 release 24 hr (Depakote ER) 90 days #180 tabs Depends Incontinence supplies #100 ea 03/15/23 Prevail Plus pads #90 ea 03/15/23 nitrofurantoin macrocrystal 100 mg 100 mg PO Q12H #6 caps 06/09/23 capsule oxybutynin chloride 5 mg tablet 5 mg PO BID #60 tabs 06/15/23 nystatin 100,000 unit/gram topical 1 applic topical TID #60 grams 06/22/23 powder metformin 1,000 mg tablet 1,000 mg PO BID #180 tabs 06/27/23 clonidine HCl 0.1 mg tablet 0.2 mg (2 x 0.1 mg) PO BEDTIME #60 07/09/23 tabs cefpodoxime 200 mg tablet 200 mg PO Q12H #14 tabs 07/23/23 magnesium 250 mg tablet 250 mg PO DAILY #10 tabs 07/24/23 Allergies Allergy/AdvReac Type Severity Reaction Status Date / Time Sulfa (Sulfonamide Allergy Mild RASH Verified 06/27/23 12:05 Antibiotics) haloperidol [HALOPERIDOL] Allergy Unknown Verified 06/27/23 12:05 lithium [LITHIUM] Allergy Unknown Verified 06/27/23 12:05 risperidone [RISPERIDONE] Allergy Unknown Verified 06/27/23 12:05 lidocaine AdvReac Intermediate gait Verified 06/27/23 12:05 instability perphenazine AdvReac uncontrolled Verified 06/27/23 12:05 hand shaking Review of Systems Review of Systems Narrative: Negative except as noted above Patient History Medical History Psychosis COVID-19 Bipolar 1 disorder, mixed, full remission Bipolar 1 disorder, depressed, partial remission Hyperlipidemia DM type 2 (diabetes mellitus, type 2) Bipolar I disorder, most recent episode depressed, severe without psychotic features Bipolar disorder (1989) Fractures (2007) Foot pain (~2002) Ankle pain (2007) Peripheral neuropathy (2013) Hayfever (~1989) Sleep apnea (08/2015) Hypertension Hypothyroidism Urinary incontinence Cataract (2011) Chicken pox Measles CTS (carpal tunnel syndrome) (1987) RLS (restless legs syndrome) (1999) Anxiety (1994) Depression (1961) Surgical History Anesthesia complication History of surgery (04/2008) History of carpal tunnel repair (~1997) Family History Child Age: 51 Arthritis Mother Heart disease Family history of fraternal twins Family history of identical twins Levin gestation with first Social History marital status: number of children: 2 household members: children lives independently: Yes caregiver/support person: No housing: house pets and animals: No education level: high school occupational status: unemployed leisure activities: reading and volunteer work other: walk,garden,visit friends,yarsani,word puzzles seatbelt use: always water heater temp set < 120 deg: Yes working smoke detector in home: Yes fire extinguisher in home: Yes carbon monox detector in home: Yes Smoking Status: Never smoker second hand exposure: No alcohol intake: current substance use type: does not use during the past year weight has: other well-balanced diet: rarely or never daily servings fruits/ve-1 caffeine: Yes eating out: 1-3 times/week frequency: 3-4 times per week duration: 15-30 minutes/day Smoking Status: Never smoker alcohol intake frequency: holidays/special occasions only Substance Use Type: does not use Exam Initial Vital Signs Initial Vital Signs: Vital Signs Temperature 98.0 F 07/23/23 15:34 Pulse Rate 86 07/23/23 15:34 Respiratory Rate 16 07/23/23 15:34 Blood Pressure 130/62 07/23/23 15:34 Pulse Oximetry 92 07/23/23 15:34 Oxygen Delivery Method Room Air 07/23/23 15:34 Const: Awake, alert, appears chronically unwell, frail, debilitated Cardiac: regular rate, regular rhythm RESP: unlabored, clear bilaterally, no wheezing GI: Soft, nontender, nondistended Skin: Warm, Dry, intact, no rashes Neuro: AO x3, CN II-XII grossly intact, moves all extremities Course Orders Ordered: ED Orders 07/23/23 16:31 TSH w/ Reflex to FT4 Stat Valproic Acid (Depakene) Total Stat 07/23/23 18:49 Urinalysis and Microscopic Stat Urine Culture Stat Discontinued Medications Ceftriaxone Sodium 2,000 mg/ (Sodium Chloride) 100 mls @ 200 mls/hr IV NOW ONE Stop: 07/23/23 19:27 Last Infusion: 07/23/23 20:00 Dose: Infused Documented By: Admin: 07/23/23 19:39 Dose: 200 mls/hr Documented By: Vital Signs Vital signs: Vital Signs - 8 hr 07/23/23 17:26 07/23/23 17:26 07/23/23 17:30 Pulse Rate 79 Blood Pressure 143/72 H 130/65 Pulse Oximetry 94 Oxygen Delivery Method 07/23/23 17:30 07/23/23 18:00 07/23/23 18:01 Pulse Rate 77 71 72 Blood Pressure Pulse Oximetry 93 91 92 Oxygen Delivery Method Room Air 07/23/23 18:01 07/23/23 18:30 07/23/23 18:31 Pulse Rate 75 74 Blood Pressure 140/58 L Pulse Oximetry 93 94 Oxygen Delivery Method 07/23/23 18:31 07/23/23 19:00 07/23/23 19:00 Pulse Rate 69 Blood Pressure 130/81 128/68 Pulse Oximetry 96 Oxygen Delivery Method Room Air MDM - Weakness Differential Diagnosis Differential diagnosis: Likely anemia, hypoglycemia and dehydration Lab Data 07/23/23 15:45 07/23/23 15:45 Labs: Lab Results 07/23/23 07/23/23 07/23/23 Range/Units 15:45 16:31 18:49 WBC 6.1 (4.5-11.0) X10^3/uL RBC 3.68 L (4.0-5.2) X10^6/uL Hgb 12.2 (12.0-16.0) g/dL Hct 36.6 (36-46) % MCV 99.3 (80-100) fL MCH 33.1 (26-34) PG MCHC 33.3 (30-36) % RDW 16.1 H (11.6-14.8) % Plt Count 169 (150-400) X10^3/uL Neut % (Auto) 42.6 L (50-75) % Lymph % (Auto) 47.6 H (25-40) % [place] % (Auto) 6.1 (3-14) % Eos % (Auto) 3.0 (2-4) % Baso % (Auto) 0.7 (0-2) % Neut # (Auto) 2600 (7858-2470) /uL Lymph # (Auto) 2900 (7296-7537) /uL [place] # (Auto) 400 (0-900) /uL Eos # (Auto) 200 (0-450) /uL Baso # (Auto) 0 (0-100) /uL PT 10.6 (9.4-12.5) SECONDS INR 0.9 (0.9-1.3) APTT 31 (25.1-36.5) SECONDS Sodium 138 (137-145) mmol/L Potassium 4.4 (3.4-5.1) mmol/L Chloride 104 (98-107) mmol/L Carbon Dioxide 28 (22-32) mmol/L BUN 23 H (7-17) mg/dL Creatinine 0.96 (0.52-1.04) mg/dL Estimated GFR > 60 (>60) mL/min BUN/Creatinine Ratio 24.0 H (6-22) Glucose 228 H (80-110) mg/dL Calcium 10.0 (8.4-10.2) mg/dL Magnesium 1.3 L (1.6-2.3) mg/dL Total Bilirubin 0.6 (0.2-1.3) mg/dL AST 50 H (14-36) IU/L ALT 31 (<35) IU/L Alkaline Phosphatase 84 (38-126) U/L Total Creatine Kinase 114 (30-135) U/L Troponin I < 0.012 (0.01-0.034) ng/mL Total Protein 6.9 (6.3-8.2) g/dL Albumin 4.4 (3.5-5.0) g/dL Globulin 2.5 (1.7-4.1) g/dL Albumin/Globulin Ratio 1.8 (1.0-2.8) Lipase 94 (23-300) U/L TSH 1.79 (0.47-4.68) uIU/mL Urine Color Yellow Urine Appearance Clear Urine pH 5.5 (4.5-8.0) Ur Specific [place] 1.020 (1.000-1.035) Urine Protein Trace H (Negative) Urine Glucose (UA) Negative (Negative) g/dL Urine Ketones Negative (NEGATIVE) Urine Occult Blood Negative (Negative) Urine Nitrate Positive H (Negative) Urine Bilirubin Negative (NEGATIVE) Urine Urobilinogen 0.2 (0.2) E.U./dL Ur Leukocyte Esterase Trace H (NEGATIVE) Urine RBC None seen (0-5/HPF) Urine WBC 1-5/hpf (0-5/HPF) Ur Squamous Epith Cells None seen (0-5/HPF) Urine Bacteria Many (>30) H (None) Ur Culture Indicated? Specimen cultured Vol Urine Centrifuged 10ml (spun) Imaging Data Chest x-ray: Radiologist Impression: PROCEDURE: XR CHEST 1V INDICATIONS: chest pain TECHNIQUE: One view of the chest was acquired. COMPARISON: [facility], CR, XR CHEST 2V, 02/06/2021, 22:47. [facility], CR, XR CHEST 2V, 04/30/2023, 16:16. FINDINGS: Surgical changes and devices: None. 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 Lungs are clear. No pleural effusions or pneumothorax. Mediastinum: Mediastinal contours appear normal. Heart size is normal. Bones and chest wall: No suspicious bony lesions. Overlying soft tissues appear unremarkable. IMPRESSION: No acute cardiopulmonary abnormality is seen. Approved by: Hiram Ibrahim M.D. on 07/23/2023 at 16:56 [facility] Narrative Medical decision making narrative: Chronically unwell appearing patient with acute on chronic global weakness. Vital signs stable, no acute distress, no focal deficit. Laboratory work significant for WBC count 6.1, hemoglobin 12.2, platelets 169. Sodium 138, potassium 4.4, creatinine 0.96. Glucose 228, magnesium 1.3, TSH 1.79. Urinalysis significant for positive nitrites, trace leukocyte esterase, many bacteria present. Chest x-ray negative for acute findings. Patient counseled on lab and imaging findings, she states that she feels comfortable going home with her daughter present. Since it was after hours an empiric dose of Rocephin ordered for coverage. Oral antibiotics and oral magnesium supplements sent to pharmacy of choice. Discharge Plan Departure Patient Disposition: Home Clinical Impression: Acute UTI, Generalized weakness Instructions: DI for Urinary Tract Infection (UTI) Activity Restrictions/Additional Instructions: Finish all of your antibiotics as prescribed. Drink plenty of water to flush out your kidneys and bladder. Follow up with your primary care physician. Prescriptions: New cefpodoxime 200 mg tablet 200 mg PO Q12H Qty: 14 0RF Rx Instructions: must administer with a meal/food magnesium 250 mg tablet 250 mg PO DAILY Qty: 10 0RF No Action metformin 1,000 mg tablet 1,000 mg PO BID Qty: 180 3RF (DME) DISABLED PARKING PLACARD See Rx Instructions .Route .MEDSUPPLY Qty: 1 0RF Rx Instructions: 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 divalproex 250 mg tablet extended release 24 hr 250 mg PO BEDTIME Qty: 90 3RF Rx Instructions: To be taken with two 500 mg tabs for MDD 1250 mg olanzapine 5 mg tablet 5 mg PO BEDTIME Qty: 90 3RF divalproex [Depakote ER] 500 mg tablet extended release 24 hr 1,000 mg PO BEDTIME 90 Days Qty: 180 1RF clonidine HCl 0.1 mg tablet 0.2 mg PO BEDTIME Qty: 60 3RF gabapentin 300 mg capsule See Rx Instructions .ROUTE .COMPLEX Rx Instructions: 300 mg po qam and 600 mg po qpm; indomethacin 25 mg capsule See Rx Instructions PO TID PRN (Reason: gout) Qty: 40 0RF Dose Instruction: Take 1 to 2 tabs three times daily for GOUT pain PO TID; administer with food or milk Rx Instructions: Take 1 to 2 tabs three times daily for GOUT pain PO three times a day PRN; allopurinol 300 mg tablet See Rx Instructions .ROUTE .COMPLEX Qty: 90 2RF Dose Instruction: TAKE 1 TABLET BY MOUTH DAILY FOR GOUT Rx Instructions: TAKE 1 TABLET BY MOUTH DAILY FOR GOUT lisinopril 10 mg tablet See Rx Instructions .ROUTE .COMPLEX Qty: 90 2RF Dose Instruction: TAKE 1 TABLET DAILY Rx Instructions: TAKE 1 TABLET DAILY atorvastatin 80 mg tablet 80 mg PO DAILY Qty: 90 2RF levothyroxine [Synthroid] 150 mcg tablet 150 mcg PO DAILY Qty: 90 3RF (DME) Depends Incontinence supplies XL See Rx Instructions .Route .MEDSUPPLY Qty: 100 3RF Rx Instructions: for three times daily changes (DME) Prevail Plus pads 6 See Rx Instructions .Route .MEDSUPPLY Qty: 90 3RF Rx Instructions: As directed oxybutynin chloride 5 mg tablet 5 mg PO BID Qty: 60 2RF nystatin 100,000 unit/gram powder 1 applic topical TID Qty: 60 0RF atorvastatin 40 mg tablet 40 mg PO DAILY nitrofurantoin macrocrystal 100 mg capsule 100 mg PO Q12H Qty: 6 0RF Rx Instructions: extended release caps. must administer with a meal/food Referrals: Alina Corcoran MD [Primary Care Provider] - Stand Alone Forms: Patient Portal/API
[2023-07-23 18:58] LABS: Appearance Urine UA CLEAR; Bilirubin Urine UA NEGATIVE (NEGATIVE); Color Urine UA YELLOW; Glucose Urine UA NEGATIVE (Negative); Ketones Urine UA NEGATIVE (NEGATIVE); Leukocyte Esterase Urine UA TRACE (NEGATIVE); Nitrite Urine UA POSITIVE (Negative); Occult Blood Urine UA NEGATIVE (Negative); Protein Urine UA TRACE (Negative); Urobilinogen Urine UA 0.2 E.U./dL (0.2); pH Urine UA 5.5 (4.5-8.0)
[2023-07-23 19:04] LABS: Bacteria Urine Many (>30); Culture Indicated Urine Specimen Cultured; RBC Urine None Seen (0-5/HPF); Squamous Epithelial Cell Urine None Seen (0-5/HPF); Urine Volume 10mL (spun); WBC Urine 1-5/HPF (0-5/HPF)
[2023-07-23] MEDS: cefTRIAXone 2,000 MG in SODIUM CHLORIDE 0.9% 100 ML 200 MG IV (19:39)
[2023-07-25 07:35] LABS: Valproic Acid (Depakene) Total 88 ug/mL (50-100)
== END 2023-07-23 20:13 | disposition home or self-care (01) ==
PROVIDERS: Emergency Medicine; Emergency Provider Emergency Medicine; Family Provider Family Medicine; PCP Family Medicine
DX: N39.0 Urinary tract infection, site not specified (principal); R53.1 Weakness; R07.9 Chest pain, unspecified
CPT/HCPCS: 36415; 71045; 80053; 80164; 81001; 82550; 83690; 83735; 84443; 84484; 85025; 85610; 85730; 87077; 87086; 87186; 96365; 99284; J0696

== ENCOUNTER 2023-07-29 09:46 | Emergency (ER) | payer MEDICARE, MEDICAID, SELFPAY ==
[2023-06-07 23:35] VITALS: BMI 44.6
[2023-07-29] VITALS (8 sets, daily range): BP systolic 126–130; BP diastolic 60–65; PULSE 72–76; RESP 16–18; TEMP 36.6–36.8; O2SAT 93–95
--- NOTE | 2023-07-29 09:57 | DI.CT.S_ITS ---
PROCEDURE: CT CERVICAL SPINE WO CON INDICATIONS: Fall/pain TECHNIQUE: Noncontrast 3 mm thick sections acquired from the skull base to the T4 level. Sagittal and coronal reformats were then constructed. For radiation dose reduction, the following was used: automated exposure control, adjustment of mA and/or kV according to patient size. COMPARISON: [facility], CT, CT CERVICAL SPINE WO CON, 03/15/2022, 18:21. FINDINGS: Image quality: Excellent. Bones: No fractures or dislocations. Visualized superior ribs are intact. Soft tissues: Prevertebral soft tissues are normal in thickness. No paravertebral hematomas. No apical pneumothoraces. IMPRESSION: No displaced fracture or traumatic subluxation. Dictated by: Caden Guy M.D. on 07/29/2023 at 9:51 Approved by: Caden Guy M.D. on 07/29/2023 at 9:54
--- NOTE | 2023-07-29 09:57 | DI.RAD.S_ITS ---
PROCEDURE: XR KNEE LT 3V INDICATIONS: Fall/pain TECHNIQUE: 3 views of the knee were acquired. COMPARISON: [facility], , KNEE 3V LEFT, 12/28/2016, 8:39. FINDINGS: Bones: No fractures or dislocations. No suspicious bony lesions. Mild tricompartmental osteoarthritic changes. Soft tissues: No joint effusion. No suspicious soft tissue calcifications. IMPRESSION: No fracture. Mild osteoarthritic changes of the knee relatively unchanged. Dictated by: Caden Guy M.D. on 07/29/2023 at 10:18 Approved by: Caden Guy M.D. on 07/29/2023 at 10:23
--- NOTE | 2023-07-29 09:57 | DI.RAD.S_ITS ---
PROCEDURE: XR FOOT LT MIN 3V INDICATIONS: Fall/pain/2nd toe pain TECHNIQUE: 3 views of the foot were acquired. COMPARISON: [facility], CR, XR FOOT RT MIN 3V, 03/28/2019, 14:09. FINDINGS: Bones: No fractures or dislocations. No suspicious bony lesions. Plate and screw fixation of the ankle. Mild 1st metatarsophalangeal osteoarthritic change. Mild interphalangeal osteoarthritic change. Soft tissues: No tibiotalar joint effusion. Achilles tendon appears normal. IMPRESSION: No acute bony abnormality. Mild osteoarthritic changes of the forefoot. Dictated by: Caden Guy M.D. on 07/29/2023 at 10:10 Approved by: Caden Guy M.D. on 07/29/2023 at 10:18
--- NOTE | 2023-07-29 09:57 | DI.RAD.S_ITS ---
PROCEDURE: XR KNEE RT 3V INDICATIONS: Fall/painFall/pain TECHNIQUE: 3 views of the knee were acquired. COMPARISON: [facility], , KNEE 3V LEFT, 12/28/2016, 8:39. FINDINGS: Bones: No fractures or dislocations. No suspicious bony lesions. Mild tricompartmental osteoarthritic change. Soft tissues: No joint effusion. No suspicious soft tissue calcifications. IMPRESSION: No fracture. Mild osteoarthritic changes of the knee. Dictated by: Caden Guy M.D. on 07/29/2023 at 10:23 Approved by: Caden Guy M.D. on 07/29/2023 at 10:24
--- NOTE | 2023-07-29 09:57 | DI.CT.S_ITS ---
PROCEDURE: CT HEAD/BRAIN WO CON INDICATIONS: Fall/pain TECHNIQUE: Noncontrast 4.5 mm thick angled axial sections acquired from the foramen magnum to the vertex, with coronal and sagittal reformats. For radiation dose reduction, the following was used: automated exposure control, adjustment of mA and/or kV according to patient size. COMPARISON: [facility], CT, CT HEAD/BRAIN WO CON, 03/15/2022, 18:21. FINDINGS: Image quality: Diagnostic. CSF spaces: Basal cisterns are patent. No extra-axial fluid collections. Ventricles are normal in size and shape. Brain: Mild parenchymal volume loss consistent with patient age. No midline shift. No intracranial masses or hemorrhage. [place]-white matter interface is normal. Skull and face: Calvarium and visualized facial bones are intact, without suspicious lesions. Sinuses: Visualized sinuses and mastoids are clear. IMPRESSION: No acute intracranial pathology. Dictated by: Caden Guy M.D. on 07/29/2023 at 9:55 Approved by: Caden Guy M.D. on 07/29/2023 at 9:56
--- NOTE | 2023-07-29 10:00 | ED.FALL ---
HPI - Fall General Chief Complaint: Fall Stated Complaint: sent by [facility]/ fall, hit head, head and neck pain Time Seen by Provider: 07/29/23 09:53 History of Present Illness HPI Narrative: Patient here with daughter. Sent here from walk-in clinic for ground level fall. Patient lives with daughter. Patient according to daughter is awake at different hours of the day. 3:00 a.m. last night she was in a shower chair next to her bed, she commonly uses a shower chair for sitting. She leaned forward to grab a skirt and lost her balance and fell forward to her left side. Onto shaggy carpet. No loss of consciousness. Patient is not on any blood thinners. Has abrasion to the left forehead. Tetanus is up-to-date less than 5 years. Complains neck pain mid and lower back pain as well as bilateral knee pain and left 2nd toe pain denies any other injuries Related Data Home Medications Medication Instructions Recorded Confirmed atorvastatin 40 mg tablet 40 mg PO DAILY 06/08/23 06/27/23 gabapentin 300 mg capsule See Rx Instructions .Route .COMPLEX 07/09/23 07/09/23 Previous Rx's Medication Instructions Recorded indomethacin 25 mg capsule See Rx Instructions PO TID PRN 06/23/19 gout #40 caps allopurinol 300 mg tablet See Rx Instructions .Route 09/19/22 .COMPLEX #90 tabs lisinopril 10 mg tablet See Rx Instructions .Route 10/03/22 .COMPLEX #90 tabs divalproex 250 mg tablet,extended 250 mg PO BEDTIME #90 tabs 10/23/22 release 24 hr olanzapine 5 mg tablet 5 mg PO BEDTIME #90 tabs 10/23/22 DISABLED PARKING PLACARD #1 ea 11/24/22 atorvastatin 80 mg tablet 80 mg PO DAILY #90 tabs 01/26/23 levothyroxine 150 mcg tablet 150 mcg PO DAILY #90 tabs 01/26/23 (Synthroid) divalproex 500 mg tablet,extended 1,000 mg (2 x 500 mg) PO BEDTIME 03/12/23 release 24 hr (Depakote ER) 90 days #180 tabs Depends Incontinence supplies #100 ea 03/15/23 Prevail Plus pads #90 ea 03/15/23 nitrofurantoin macrocrystal 100 mg 100 mg PO Q12H #6 caps 06/09/23 capsule oxybutynin chloride 5 mg tablet 5 mg PO BID #60 tabs 06/15/23 nystatin 100,000 unit/gram topical 1 applic topical TID #60 grams 06/22/23 powder metformin 1,000 mg tablet 1,000 mg PO BID #180 tabs 06/27/23 clonidine HCl 0.1 mg tablet 0.2 mg (2 x 0.1 mg) PO BEDTIME #60 07/09/23 tabs cefpodoxime 200 mg tablet 200 mg PO Q12H #14 tabs 07/23/23 magnesium 250 mg tablet 250 mg PO DAILY #10 tabs 07/24/23 metformin 500 mg tablet See Rx Instructions PO .COMPLEX 07/27/23 #90 tabs Allergies Allergy/AdvReac Type Severity Reaction Status Date / Time Sulfa (Sulfonamide Allergy Mild RASH Verified 06/27/23 12:05 Antibiotics) haloperidol [HALOPERIDOL] Allergy Unknown Verified 06/27/23 12:05 lithium [LITHIUM] Allergy Unknown Verified 06/27/23 12:05 risperidone [RISPERIDONE] Allergy Unknown Verified 06/27/23 12:05 lidocaine AdvReac Intermediate gait Verified 06/27/23 12:05 instability perphenazine AdvReac uncontrolled Verified 06/27/23 12:05 hand shaking Review of Systems Review of Systems Narrative: GENERAL: negative chills, fatigue, malaise, fever, sweats. HEENT: negative sinus pain, ear pain, sore throat RESPIRATORY: negative dyspnea, cough CARDIOVASCULAR: negative chest pain, palpitations GASTROINTESTINAL: negative nausea, vomiting, abdominal pain : negative dysuria, frequency, hematuria MUSCULOSKELETAL: Positive muscle or bony pain SKIN: negative rash, skin lesions NEUROLOGIC: negative weakness, numbness ROS Unobtainable: All systems reviewed & are unremarkable except as noted in HPI and below Patient History Medical History Psychosis COVID-19 Bipolar 1 disorder, mixed, full remission Bipolar 1 disorder, depressed, partial remission Hyperlipidemia DM type 2 (diabetes mellitus, type 2) Bipolar I disorder, most recent episode depressed, severe without psychotic features Bipolar disorder (1989) Fractures (2007) Foot pain (~2002) Ankle pain (2007) Peripheral neuropathy (2013) Hayfever (~1989) Sleep apnea (08/2015) Hypertension Hypothyroidism Urinary incontinence Cataract (2011) Chicken pox Measles CTS (carpal tunnel syndrome) (1987) RLS (restless legs syndrome) (1999) Anxiety (1994) Depression (196) Surgical History Anesthesia complication History of surgery (04/2008) History of carpal tunnel repair (~1997) Family History Child Age: 51 Arthritis Mother Heart disease Family history of fraternal twins Family history of identical twins Levin gestation with first Social History marital status: number of children: 2 household members: children lives independently: Yes caregiver/support person: No housing: house pets and animals: No education level: high school occupational status: unemployed leisure activities: reading and volunteer work other: walk,garden,visit friends,baptism,word puzzles seatbelt use: always water heater temp set < 120 deg: Yes working smoke detector in home: Yes fire extinguisher in home: Yes carbon monox detector in home: Yes Smoking Status: Never smoker second hand exposure: No alcohol intake: current substance use type: does not use during the past year weight has: other well-balanced diet: rarely or never daily servings fruits/ve-1 caffeine: Yes eating out: 1-3 times/week frequency: 3-4 times per week duration: 15-30 minutes/day Smoking Status: Never smoker alcohol intake frequency: holidays/special occasions only Substance Use Type: does not use Exam Narrative Exam Narrative: GENERAL: in no distress, not toxic not dyspneic, patient in a gown, slippers removed HEAD: Normocephalic. Small abrasion to the left forehead. Otherwise nontender no crepitus or step-off. EYES: Pupils equal round ENT: Mucous membranes moist. NECK: Trachea midline. No midline tenderness or step-off of the cervical spine, there is bilateral parathoracic and paralumbar muscle tenderness. No midline tenderness or step-off of the thoracic or lumbar spine. No skin injury seen to the back. CARDIOVASCULAR: Regular rate and rhythm RESPIRATORY: Clear to auscultation. Breath sounds equal bilaterally. No wheezes, rales, or rhonchi. GASTROINTESTINAL: Abdomen soft, non-tender EXTREMITIES: No gross deformities. Nontender bilateral shoulders elbows wrists pelvis hips and ankles. Mild tenderness to the bilateral knees but no bruising or skin injury seen to the knees. Patient able to fully flex to 90? and extend fully. Both knees. Mild tenderness but no deformity of the left 2nd toe. Feet are warm soft and pink with strong pedal pulses and brisk cap refills. Mild left mid rib tenderness laterally, no crepitus BACK: No flank tenderness. NEURO: AOx4. Clear speech SKIN: Warm and dry PSYCH: Not anxious, is cooperative Initial Vital Signs Initial Vital Signs: Vital Signs Pulse Rate 76 07/29/23 09:59 Blood Pressure 130/60 07/29/23 09:59 Pulse Oximetry 94 07/29/23 09:59 Course Orders Ordered: ED Orders 07/29/23 09:57 CT cervical spine wo con Stat CT head/brain wo con Stat XR foot LT min 3V Stat XR knee LT 3V Stat XR knee RT 3V Stat 07/29/23 09:59 CT chest abd pel wo con Stat Discontinued Medications Bacitracin (Bacitracin Oint 0.9 Gm Pckt) 1 applic TOP NOW ONE Stop: 07/29/23 11:43 Last Admin: 07/29/23 11:54 Dose: 1 applic Documented By: KYLE Vital Signs Vital signs: Vital Signs - 8 hr 07/29/23 09:59 07/29/23 09:59 07/29/23 10:00 Temperature Pulse Rate 76 76 Respiratory Rate Blood Pressure 130/60 Pulse Oximetry 94 95 Oxygen Delivery Method 07/29/23 10:03 07/29/23 10:52 07/29/23 11:00 Temperature 98.3 F Pulse Rate 76 74 72 Respiratory Rate 18 Blood Pressure 130/60 Pulse Oximetry 95 95 95 Oxygen Delivery Method Room Air 07/29/23 11:30 07/29/23 11:55 07/29/23 11:55 Temperature Pulse Rate 73 74 Respiratory Rate Blood Pressure 126/65 Pulse Oximetry 93 93 Oxygen Delivery Method 07/29/23 12:05 Temperature 97.8 F Pulse Rate 74 Respiratory Rate 16 Blood Pressure 126/65 Pulse Oximetry Oxygen Delivery Method Room Air MDM - Fall Imaging Data CT chest abdomen and pelvis: Radiologist's Impression: [address] [address] [address] Scan Report Signed Patient: Madhav Coats V MR#: [id number] : 1950 Acct:[id number] Age/Sex: 73 / F Date of Service: 07/29/23 Loc: ED Accession Number: [id number] Procedure: CT chest abd pel wo con Ordering Provider: Caden Haddad MD PROCEDURE: CT CHEST ABD PEL WO CON INDICATIONS: Fall/pain/trauma TECHNIQUE: 5 mm thick sections acquired from the lung apices to the symphysis pubis. 5 mm thick coronal and sagittal reformats acquired, with additional 7 mm coronal MIP reformats through the lungs. For radiation dose reduction, the following was used: automated exposure control, adjustment of mA and/or kV according to patient size. COMPARISON: None. FINDINGS: Image quality: Diagnostic. CHEST: Lower Neck: No enlarged lymph nodes. Thyroid: No thyroid nodules which require sonographic follow up, per consensus guidelines. Axillae: No enlarged lymph nodes. Chest Wall: Unremarkable. Bones: Unremarkable. Lungs and Pleura: No pneumothorax or pleural effusions. Small amount of ground-glass opacities lung the peripheries of the left upper lobe near the 6th rib without fracture identified. Series 5, image 164. Heart: Heart size is normal. No pericardial effusion. Thoracic Vessels: The aorta and pulmonary arteries demonstrate normal size. Mediastinum and Isabel: No enlarged lymph nodes. Esophagus: No wall thickening. No hiatal hernia. ABDOMEN: Liver: No solid mass. Gallbladder: No radiopaque gallstones or wall thickening. Biliary ducts: No biliary dilation. Pancreas: No ductal dilation. Spleen: Size is within normal limits. Adrenal Glands: No adrenal nodules. Kidneys and Ureters: No hydronephrosis. No solid mass. No complex renal cystic lesion which requires follow up. Stomach and Bowel: Normal colonic caliber, without significant wall thickening. Peritoneum: No abnormal intraperitoneal fluid. No free air. Ventral Wall: No hernia. Abdominal Nodes: No retroperitoneal or mesenteric adenopathy by size criteria. Vessels: Aorta and inferior vena cava are normal in size. PELVIS: Pelvic Organs: Unremarkable. Bladder: Unremarkable. Pelvic Nodes: No enlarged lymph nodes. Miscellaneous: No inguinal hernias are seen. Bones: No aggressive osseous abnormality. IMPRESSION: Small amount of peripheral ground-glass opacities near the left lateral 6th rib without fracture may represent small pulmonary contusion versus atelectasis. Recommend correlation with site of impact. No traumatic findings within the abdomen or pelvis. Dictated by: Caden Guy M.D. on 07/29/2023 at 9:56 Approved by: Caden Guy M.D. on 07/29/2023 at 10:04 CT scan - head: Radiologist's Impression: [address] [address] [address] Scan Report Signed Patient: Madhav Coats V MR#: [id number] : 1950 Acct:[id number] Age/Sex: 73 / F Date of Service: 07/29/23 Loc: ED Accession Number: [id number] Procedure: CT head/brain wo con Ordering Provider: Caden Haddad MD PROCEDURE: CT HEAD/BRAIN WO CON INDICATIONS: Fall/pain TECHNIQUE: Noncontrast 4.5 mm thick angled axial sections acquired from the foramen magnum to the vertex, with coronal and sagittal reformats. For radiation dose reduction, the following was used: automated exposure control, adjustment of mA and/or kV according to patient size. COMPARISON: [facility], CT, CT HEAD/BRAIN WO CON, 03/15/2022, 18:21. FINDINGS: Image quality: Diagnostic. CSF spaces: Basal cisterns are patent. No extra-axial fluid collections. Ventricles are normal in size and shape. Brain: Mild parenchymal volume loss consistent with patient age. No midline shift. No intracranial masses or hemorrhage. Valverde-white matter interface is normal. Skull and face: Calvarium and visualized facial bones are intact, without suspicious lesions. Sinuses: Visualized sinuses and mastoids are clear. IMPRESSION: No acute intracranial pathology. Dictated by: Caden Guy M.D. on 07/29/2023 at 9:55 Approved by: Caden Guy M.D. on 07/29/2023 at 9:56 CT - cervical spine: Radiologist's Impression: [address] [address] [address] Scan Report Signed Patient: Madhav Coats V MR#: [id number] : 1950 Acct:[id number] Age/Sex: 73 / F Date of Service: 07/29/23 Loc: ED Accession Number: [id number] Procedure: CT cervical spine wo con Ordering Provider: Caden Haddad MD PROCEDURE: CT CERVICAL SPINE WO CON INDICATIONS: Fall/pain TECHNIQUE: Noncontrast 3 mm thick sections acquired from the skull base to the T4 level. Sagittal and coronal reformats were then constructed. For radiation dose reduction, the following was used: automated exposure control, adjustment of mA and/or kV according to patient size. COMPARISON: [facility], CT, CT CERVICAL SPINE WO CON, 03/15/2022, 18:21. FINDINGS: Image quality: Excellent. Bones: No fractures or dislocations. Visualized superior ribs are intact. Soft tissues: Prevertebral soft tissues are normal in thickness. No paravertebral hematomas. No apical pneumothoraces. IMPRESSION: No displaced fracture or traumatic subluxation. Dictated by: Caden Guy M.D. on 07/29/2023 at 9:51 Approved by: Caden Guy M.D. on 07/29/2023 at 9:54 Extremity x-ray #1: Radiologist's Impression: [address] [address] XRay Report Signed Patient: Madhav Coats V MR#: [id number] : 1950 Acct:[id number] Age/Sex: 73 / F Date of Service: 07/29/23 Loc: ED Accession Number: [id number] Procedure: XR knee RT 3V Ordering Provider: Caden Haddad MD PROCEDURE: XR KNEE RT 3V INDICATIONS: Fall/painFall/pain TECHNIQUE: 3 views of the knee were acquired. COMPARISON: [facility], CR, KNEE 3V LEFT, 12/28/2016, 8:39. FINDINGS: Bones: No fractures or dislocations. No suspicious bony lesions. Mild tricompartmental osteoarthritic change. Soft tissues: No joint effusion. No suspicious soft tissue calcifications. IMPRESSION: No fracture. Mild osteoarthritic changes of the knee. Dictated by: Caden Guy M.D. on 07/29/2023 at 10:23 Approved by: Caden Guy M.D. on 07/29/2023 at 10:24 Extremity x-ray #2: Radiologist's Impression: [address] [address] XRay Report Signed Patient: Madhav Coats V MR#: [id number] : 1950 Acct:[id number] Age/Sex: 73 / F Date of Service: 07/29/23 Loc: ED Accession Number: [id number] Procedure: XR knee LT 3V Ordering Provider: Caden Haddad MD PROCEDURE: XR KNEE LT 3V INDICATIONS: Fall/pain TECHNIQUE: 3 views of the knee were acquired. COMPARISON: [facility], , KNEE 3V LEFT, 12/28/2016, 8:39. FINDINGS: Bones: No fractures or dislocations. No suspicious bony lesions. Mild tricompartmental osteoarthritic changes. Soft tissues: No joint effusion. No suspicious soft tissue calcifications. IMPRESSION: No fracture. Mild osteoarthritic changes of the knee relatively unchanged. Dictated by: Caden Guy M.D. on 07/29/2023 at 10:18 Approved by: Caden Guy M.D. on 07/29/2023 at 10:23 Extremity x-ray #3: Radiologist's Impression: [place] [address] XRay Report Signed Patient: Madhav Coats V MR#: [id number] : 1950 Acct:[id number] Age/Sex: 73 / F Date of Service: 07/29/23 Loc: ED Accession Number: [id number] Procedure: XR foot LT min 3V Ordering Provider: Caden Haddad MD PROCEDURE: XR FOOT LT MIN 3V INDICATIONS: Fall/pain/2nd toe pain TECHNIQUE: 3 views of the foot were acquired. COMPARISON: [facility], , XR FOOT RT MIN 3V, 03/28/2019, 14:09. FINDINGS: Bones: No fractures or dislocations. No suspicious bony lesions. Plate and screw fixation of the ankle. Mild 1st metatarsophalangeal osteoarthritic change. Mild interphalangeal osteoarthritic change. Soft tissues: No tibiotalar joint effusion. Achilles tendon appears normal. IMPRESSION: No acute bony abnormality. Mild osteoarthritic changes of the forefoot. Dictated by: Caden Guy M.D. on 07/29/2023 at 10:10 Approved by: Caden Guy M.D. on 07/29/2023 at 10:18 [facility] Narrative Medical decision making narrative: Patient here with daughter. Sent here from walk-in clinic for ground level fall. Patient lives with daughter. Patient according to daughter is awake at different hours of the day. 3:00 a.m. last night she was in a shower chair next to her bed, she commonly uses a shower chair for sitting. She leaned forward to grab a skirt and lost her balance and fell forward to her left side. Onto shaggy carpet. No loss of consciousness. Patient is not on any blood thinners. Has abrasion to the left forehead. Tetanus is up-to-date less than 5 years. Complains neck pain mid and lower back pain as well as bilateral knee pain and left 2nd toe pain denies any other injuries After history and exam CT head CT cervical spine CT chest abdomen and pelvis x-ray bilateral knees x-ray left foot, no blood work indicated this time given mechanism of injury. Patient denies any prevent headache chest pain abdominal pain back pain dizziness [facility] Medical records reviewed: No recent visit for this complaint Differential considered: Includes but not limited to cervical/thoracic/lumbar fracture strain sprain, intracranial bleed skull fracture concussion, bilateral knee fracture dislocation strain sprain contusion, left toe sprain strain fracture dislocation Imaging studies independently reviewed: CT head cervical spine chest abdomen pelvis no acute finding X-ray bilateral knees no acute finding X-ray left foot no acute finding Treatments: Bacitracin Re-evaluations: 11:43 a.m., updated patient and daughter results forehead contusion/abrasion, cervical strain back strain rib contusion knee contusion toe sprain. Return precautions reviewed with them. Pain is controlled. She does not want anything for discomfort. Not toxic at discharge. They desire discharge home Discussion: Appropriate for discharge home. Exam is reassuring pain is controlled. Vital signs are reassuring. Patient had mechanical fall. No other labs or EKG imaging indicated. Pain is controlled. Return precautions reviewed with patient and daughter. They desire discharge home. Diagnosis: For a contusion abrasion, knee contusion rib contusion cervical strain back strain toe sprain Discharge Plan Departure Patient Disposition: Home Clinical Impression: Forehead contusion Qualifiers: Encounter type: initial encounter Qualified Code(s): S00.83XA - Contusion of other part of head, initial encounter Forehead abrasion Qualifiers: Encounter type: initial encounter Qualified Code(s): S00.81XA - Abrasion of other part of head, initial encounter Cervical myofascial strain Qualifiers: Encounter type: initial encounter Qualified Code(s): S16.1XXA - Strain of muscle, fascia and tendon at neck level, initial encounter Back strain Qualifiers: Encounter type: initial encounter Qualified Code(s): S39.012A - Strain of muscle, fascia and tendon of lower back, initial encounter Contusion of rib on left side Qualifiers: Encounter type: initial encounter Qualified Code(s): S20.212A - Contusion of left front wall of thorax, initial encounter Contusion of left knee Qualifiers: Encounter type: initial encounter Qualified Code(s): S80.02XA - Contusion of left knee, initial encounter Sprain of toe Qualifiers: Encounter type: initial encounter Qualified Code(s): S93.509A - Unspecified sprain of unspecified toe(s), initial encounter Instructions: DI for Contusion, DI for Rib Contusion, DI for Closed Head Injury, DI for Toe Sprain, DI for Abrasion Activity Restrictions/Additional Instructions: Please see family doctor this week for re-evaluation. Return if worse if any questions or concerns. Please clean the skin wound on the forehead daily with warm soap and water and apply thin layer of topical antibiotic. You may feel more sore later today or tomorrow. Please do continue ibuprofen or Tylenol for pain. May use cool packs to sore areas 20 minutes at a time as needed for pain and swelling. Today's radiographic studies are reassuring. However return if not better in 7-10 days or return if any questions or concerns or worsening symptoms. You may continue your home medications Prescriptions: No Action metformin 1,000 mg tablet 1,000 mg PO BID Qty: 180 3RF Hold Instructions: Home Medication placed on hold at Doctor's office (DME) DISABLED PARKING PLACARD See Rx Instructions .Route .MEDSUPPLY Qty: 1 0RF Rx Instructions: 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 divalproex 250 mg tablet extended release 24 hr 250 mg PO BEDTIME Qty: 90 3RF Rx Instructions: To be taken with two 500 mg tabs for MDD 1250 mg olanzapine 5 mg tablet 5 mg PO BEDTIME Qty: 90 3RF divalproex [Depakote ER] 500 mg tablet extended release 24 hr 1,000 mg PO BEDTIME 90 Days Qty: 180 1RF clonidine HCl 0.1 mg tablet 0.2 mg PO BEDTIME Qty: 60 3RF gabapentin 300 mg capsule See Rx Instructions .ROUTE .COMPLEX Rx Instructions: 300 mg po qam and 600 mg po qpm; indomethacin 25 mg capsule See Rx Instructions PO TID PRN (Reason: gout) Qty: 40 0RF Dose Instruction: Take 1 to 2 tabs three times daily for GOUT pain PO TID; administer with food or milk Rx Instructions: Take 1 to 2 tabs three times daily for GOUT pain PO three times a day PRN; allopurinol 300 mg tablet See Rx Instructions .ROUTE .COMPLEX Qty: 90 2RF Dose Instruction: TAKE 1 TABLET BY MOUTH DAILY FOR GOUT Rx Instructions: TAKE 1 TABLET BY MOUTH DAILY FOR GOUT lisinopril 10 mg tablet See Rx Instructions .ROUTE .COMPLEX Qty: 90 2RF Dose Instruction: TAKE 1 TABLET DAILY Rx Instructions: TAKE 1 TABLET DAILY atorvastatin 80 mg tablet 80 mg PO DAILY Qty: 90 2RF levothyroxine [Synthroid] 150 mcg tablet 150 mcg PO DAILY Qty: 90 3RF (DME) Depends Incontinence supplies XL See Rx Instructions .Route .MEDSUPPLY Qty: 100 3RF Rx Instructions: for three times daily changes (DME) Prevail Plus pads 6 See Rx Instructions .Route .MEDSUPPLY Qty: 90 3RF Rx Instructions: As directed oxybutynin chloride 5 mg tablet 5 mg PO BID Qty: 60 2RF nystatin 100,000 unit/gram powder 1 applic topical TID Qty: 60 0RF metformin 500 mg tablet See Rx Instructions PO .COMPLEX Qty: 90 0RF Rx Instructions: 250 mg (1/2 tab) twice daily for one week then increase to 500mg (1 tab) twice daily cefpodoxime 200 mg tablet 200 mg PO Q12H Qty: 14 0RF Rx Instructions: must administer with a meal/food magnesium 250 mg tablet 250 mg PO DAILY Qty: 10 0RF atorvastatin 40 mg tablet 40 mg PO DAILY nitrofurantoin macrocrystal 100 mg capsule 100 mg PO Q12H Qty: 6 0RF Rx Instructions: extended release caps. must administer with a meal/food Referrals: Alina Corcoran MD [Primary Care Provider] - Stand Alone Forms: Patient Portal/API
--- NOTE | 2023-07-29 10:12 | PC.NURSE ---
Tender to palpation: lower left back pain, left ankle pain, left second toe pain, lower neck pain States she was sitting in her chair around 3am when she leaned forward to reach for something and fell. Pt able to stand and pivot from wheelchair into bed. Pt able to move all extremities. No loss of bowel/bladder. GCS 15. Scrape noted to left side of forehead.
[2023-07-29] MEDS: BACITRACIN OINT 0.9 GM PCKT 1 APPLIC TOP (11:54)
== END 2023-07-29 12:06 | disposition home or self-care (01) ==
PROVIDERS: Emergency Provider Emergency Medicine; Family Provider Family Medicine; PCP Family Medicine
DX: S00.83XA Contusion of other part of head, initial encounter (principal); S00.81XA Abrasion of other part of head, initial encounter; S39.012A Strain of muscle, fascia and tendon of lower back, initial encounter; S16.1XXA Strain of muscle, fascia and tendon at neck level, initial encounter; S20.212A Contusion of left front wall of thorax, initial encounter; S80.02XA Contusion of left knee, initial encounter; S93.509A Unspecified sprain of unspecified toe(s), initial encounter; W07.XXXA Fall from chair, initial encounter
CPT/HCPCS: 70450; 71250; 72125; 73562; 73630; 74176; 99282; 99284

== ENCOUNTER 2023-08-02 02:41 | Observation (INO) | payer MEDICARE, MEDICAID, SELFPAY ==
[2023-06-07 23:35] VITALS: BMI 44.6
[2023-08-02] VITALS (23 sets, daily range): BP systolic 97–155; BP diastolic 50–87; PULSE 62–87; RESP 12–31; TEMP 36.1–36.4; O2SAT 87–98; BMI 43.4
--- NOTE | 2023-08-02 02:49 | DI.RAD.S_ITS ---
PROCEDURE: XR CHEST 1V INDICATIONS: GEN WEAKNESS, FTT TECHNIQUE: One view of the chest was acquired. COMPARISON: [facility], CR, XR CHEST 1V, 07/23/2023, 15:49. [facility], CR, XR CHEST 2V, 04/30/2023, 16:16. FINDINGS: Surgical changes and devices: None. Lungs and pleura: Lungs are clear. No pleural effusions or pneumothorax. Low lung volumes. Mediastinum: Mediastinal contours appear normal. Heart size is normal. Bones and chest wall: No suspicious bony lesions. Overlying soft tissues appear unremarkable. IMPRESSION: No acute cardiopulmonary abnormality is seen. Agree with preliminary report. Dictated by: Satish Lopez M.D. on 08/02/2023 at 8:12 Approved by: Satish Lopez M.D. on 08/02/2023 at 8:13
--- NOTE | 2023-08-02 02:50 | ED.WEAKNESS ---
HPI - Weakness General Chief complaint: Weakness Stated complaint: weakness Time Seen by Provider: 08/02/23 02:48 Source: patient Mode of arrival: Ambulatory History of Present Illness HPI Narrative: 73-year-old female with history of type 2 diabetes, bipolar disorder, hypertension presents by EMS from home for generalized weakness. Of note, 3rd visit in 10 days for weakness and falls. Patient called 911 at home because she states that she was struggling to put her depends on for 2 hours and called 911 because she could not do it anymore. EMS states that when they arrived the patient was unable to ambulate due to generalized weakness. She was transported to the ER for further evaluation. On arrival patient states that she feels overall tired but denies pain or other symptoms. She states she feels globally weak, not weak on 1 side versus the other. Related Data Home Medications Medication Instructions Recorded Confirmed atorvastatin 40 mg tablet 40 mg PO DAILY 06/08/23 06/27/23 gabapentin 300 mg capsule See Rx Instructions .Route .COMPLEX 07/09/23 07/09/23 Previous Rx's Medication Instructions Recorded indomethacin 25 mg capsule See Rx Instructions PO TID PRN 06/23/19 gout #40 caps lisinopril 10 mg tablet See Rx Instructions .Route 10/03/22 .COMPLEX #90 tabs divalproex 250 mg tablet,extended 250 mg PO BEDTIME #90 tabs 10/23/22 release 24 hr olanzapine 5 mg tablet 5 mg PO BEDTIME #90 tabs 10/23/22 DISABLED PARKING [employer]ACARD #1 ea 11/24/22 atorvastatin 80 mg tablet 80 mg PO DAILY #90 tabs 01/26/23 levothyroxine 150 mcg tablet 150 mcg PO DAILY #90 tabs 01/26/23 (Synthroid) divalproex 500 mg tablet,extended 1,000 mg (2 x 500 mg) PO BEDTIME 03/12/23 release 24 hr (Depakote ER) 90 days #180 tabs Depends Incontinence supplies #100 ea 03/15/23 Prevail Plus pads #90 ea 03/15/23 nitrofurantoin macrocrystal 100 mg 100 mg PO Q12H #6 caps 06/09/23 capsule oxybutynin chloride 5 mg tablet 5 mg PO BID #60 tabs 06/15/23 nystatin 100,000 unit/gram topical 1 applic topical TID #60 grams 06/22/23 powder metformin 1,000 mg tablet 1,000 mg PO BID #180 tabs 06/27/23 clonidine HCl 0.1 mg tablet 0.2 mg (2 x 0.1 mg) PO BEDTIME #60 07/09/23 tabs cefpodoxime 200 mg tablet 200 mg PO Q12H #14 tabs 07/23/23 magnesium 250 mg tablet 250 mg PO DAILY #10 tabs 07/24/23 metformin 500 mg tablet See Rx Instructions PO .COMPLEX 07/27/23 #90 tabs allopurinol 300 mg tablet See Rx Instructions .Route 08/01/23 .COMPLEX #90 tabs Allergies Allergy/AdvReac Type Severity Reaction Status Date / Time Sulfa (Sulfonamide Allergy Mild RASH Verified 06/27/23 12:05 Antibiotics) haloperidol [HALOPERIDOL] Allergy Unknown Verified 06/27/23 12:05 lithium [LITHIUM] Allergy Unknown Verified 06/27/23 12:05 risperidone [RISPERIDONE] Allergy Unknown Verified 06/27/23 12:05 lidocaine AdvReac Intermediate gait Verified 06/27/23 12:05 instability perphenazine AdvReac uncontrolled Verified 06/27/23 12:05 hand shaking Review of Systems Review of Systems Narrative: See HPI Patient History Medical History Psychosis COVID-19 Bipolar 1 disorder, mixed, full remission Bipolar 1 disorder, depressed, partial remission Hyperlipidemia DM type 2 (diabetes mellitus, type 2) Bipolar I disorder, most recent episode depressed, severe without psychotic features Bipolar disorder (1989) Fractures (2007) Foot pain (~2002) Ankle pain (2007) Peripheral neuropathy (2013) Hayfever (~1989) Sleep apnea (08/2015) Hypertension Hypothyroidism Urinary incontinence Cataract (2011) Chicken pox Measles CTS (carpal tunnel syndrome) (1987) RLS (restless legs syndrome) (1999) Anxiety (1994) Depression (1961) Surgical History Anesthesia complication History of surgery (04/2008) History of carpal tunnel repair (~1997) Family History Child Age: 51 Arthritis Mother Heart disease Family history of fraternal twins Family history of identical twins Levin gestation with first Social History marital status: number of children: 2 household members: children lives independently: Yes caregiver/support person: No housing: house pets and animals: No education level: high school occupational status: unemployed leisure activities: reading and volunteer work other: walk,garden,visit friends,latter day,word puzzles seatbelt use: always water heater temp set < 120 deg: Yes working smoke detector in home: Yes fire extinguisher in home: Yes carbon monox detector in home: Yes Smoking Status: Never smoker second hand exposure: No alcohol intake: current substance use type: does not use during the past year weight has: other well-balanced diet: rarely or never daily servings fruits/ve-1 caffeine: Yes eating out: 1-3 times/week frequency: 3-4 times per week duration: 15-30 minutes/day Smoking Status: Never smoker alcohol intake frequency: holidays/special occasions only Substance Use Type: does not use Exam Initial Vital Signs Initial Vital Signs: Vital Signs Temperature 97.5 F L 08/02/23 02:41 Pulse Rate 71 08/02/23 02:41 Respiratory Rate 16 08/02/23 02:41 Blood Pressure 113/57 L 08/02/23 02:41 Pulse Oximetry 94 08/02/23 02:41 Oxygen Delivery Method Room Air 08/02/23 02:41 Const: Awake, alert, no acute distress, appears chronically unwell, debilitated Cardiac: Regular rate, regular rhythm RESP: unlabored, clear bilaterally, no wheezing GI: Soft, nontender, nondistended Skin: Warm, Dry, intact, no rashes Neuro: AO x3, CN II-XII grossly intact, moves all extremities Course Orders Ordered: ED Orders 08/02/23 02:49 Chest [XR chest 1V] Stat UA Complete [Urinalysis and Microscopic] Stat EKG-12 Lead Stat 08/02/23 03:00 BNP [NT-proBNP (BNP-Adult 18+)] Stat CBC Auto Diff [Complete Blood Count AUTO DIFF] Stat CMP [Comprehensive Metabolic Panel] Stat MAG [Magnesium] Stat Troponin & CK Cardiac Panel Stat 08/02/23 03:31 ABG [Arterial Blood Gas] Stat 08/02/23 05:18 Consult to [facility] [place] - [employer] Duty Manager Stat Magnesium Sulfate (Magnesium Sulfate) 2 gm in 50 mls @ 25 mls/hr IV NOW ONE Stop: 08/02/23 07:17 Last Admin: 08/02/23 05:24 Dose: 25 mls/hr Documented By: PADMA Co-signed By: AB Discontinued Medications Sodium Chloride (Normal Saline 0.9%) 1,000 mls @ 1,000 mls/hr IV BOLUS ONE Stop: 08/02/23 05:24 Last Infusion: 08/02/23 05:29 Dose: Infused Documented By: Admin: 08/02/23 04:29 Dose: 1,000 mls/hr Documented By: PADMA Vital Signs Vital signs: Vital Signs - 8 hr 08/02/23 02:41 08/02/23 02:48 08/02/23 03:00 Temperature 97.5 F L Pulse Rate 71 70 66 Respiratory Rate 16 Blood Pressure 113/57 L Pulse Oximetry 94 91 87 L Oxygen Delivery Method Room Air Room Air Room Air Oxygen Flow Rate 08/02/23 03:02 08/02/23 03:06 08/02/23 03:06 Temperature Pulse Rate 69 Respiratory Rate 12 Blood Pressure 104/53 L Pulse Oximetry 94 Oxygen Delivery Method Nasal Cannula Oxygen Flow Rate 3 08/02/23 03:30 08/02/23 03:30 08/02/23 04:00 Temperature Pulse Rate 67 65 Respiratory Rate 20 30 H Blood Pressure 108/53 L Pulse Oximetry 97 96 Oxygen Delivery Method Nasal Cannula Nasal Cannula Oxygen Flow Rate 3 3 08/02/23 04:00 08/02/23 04:23 08/02/23 04:23 Temperature Pulse Rate 65 Respiratory Rate 31 H Blood Pressure 98/54 L 99/56 L Pulse Oximetry 97 Oxygen Delivery Method Nasal Cannula Oxygen Flow Rate 3 08/02/23 04:30 08/02/23 04:30 08/02/23 04:44 Temperature Pulse Rate 64 65 Respiratory Rate 19 31 H Blood Pressure 97/55 L Pulse Oximetry 97 97 Oxygen Delivery Method Nasal Cannula Nasal Cannula Oxygen Flow Rate 3 3 08/02/23 04:44 08/02/23 05:00 08/02/23 05:03 Temperature Pulse Rate 62 63 Respiratory Rate 28 H 30 H Blood Pressure 102/55 L Pulse Oximetry 98 98 Oxygen Delivery Method Nasal Cannula Nasal Cannula Oxygen Flow Rate 3 3 08/02/23 05:03 Temperature Pulse Rate Respiratory Rate Blood Pressure 109/55 L Pulse Oximetry Oxygen Delivery Method Oxygen Flow Rate MDM - Weakness Lab Data 08/02/23 03:00 08/02/23 03:00 Labs: Lab Results 08/02/23 08/02/23 Range/Units 03:00 03:31 WBC 5.3 (4.5-11.0) X10^3/uL RBC 3.56 L (4.0-5.2) X10^6/uL Hgb 11.7 L (12.0-16.0) g/dL Hct 35.4 L (36-46) % MCV 99.4 (80-100) fL MCH 32.9 (26-34) PG MCHC 33.1 (30-36) % RDW 15.5 H (11.6-14.8) % Plt Count 156 (150-400) X10^3/uL Neut % (Auto) 49.2 L (50-75) % Lymph % (Auto) 37.3 (25-40) % [place] % (Auto) 9.6 (3-14) % Eos % (Auto) 2.8 (2-4) % Baso % (Auto) 1.1 (0-2) % Neut # (Auto) 2600 (5456-3010) /uL Lymph # (Auto) 2000 (7969-9218) /uL [place] # (Auto) 500 (0-900) /uL Eos # (Auto) 100 (0-450) /uL Baso # (Auto) 100 (0-100) /uL ABG Sample Site Right brachial ABG pH 7.34 L (7.35-7.45) ABG pCO2 47.0 H (35-45) mmHg ABG pO2 92 (80-100) mmHg ABG HCO3 25 (23-27) mmol/L ABG Total CO2 27 (23-27) mmol/L ABG O2 Saturation 97 (95-100) % ABG Base Excess 0.0 (-2-3) mmol/L FiO2 32 Sodium 139 (137-145) mmol/L Potassium 5.2 H (3.4-5.1) mmol/L Chloride 107 (98-107) mmol/L Carbon Dioxide 26 (22-32) mmol/L BUN 29 H (7-17) mg/dL Creatinine 1.06 H (0.52-1.04) mg/dL Estimated GFR 56 L (>60) mL/min BUN/Creatinine Ratio 27.4 H (6-22) Glucose 244 H (80-110) mg/dL Calcium 9.3 (8.4-10.2) mg/dL Magnesium 1.5 L (1.6-2.3) mg/dL Total Bilirubin 0.5 (0.2-1.3) mg/dL AST 40 H (14-36) IU/L ALT 25 (<35) IU/L Alkaline Phosphatase 83 (38-126) U/L Total Creatine Kinase 230 H (30-135) U/L Troponin I < 0.012 (0.01-0.034) ng/mL NT-Pro-B Natriuret Pep 98 (<125) pg/mL Total Protein 7.0 (6.3-8.2) g/dL Albumin 4.3 (3.5-5.0) g/dL Globulin 2.7 (1.7-4.1) g/dL Albumin/Globulin Ratio 1.6 (1.0-2.8) MDM Narrative Medical decision making narrative: Chronically unwell appearing patient presenting 3rd time in 10 days, this time for weakness. She is globally weak, no focal deficits. On room air patient initial saturations 94%, however nursing staff informed me that she quickly dropped to the upper 80s with good waveform. Patient has no history of pulmonary disease, lungs are clear to auscultation bilaterally, question if there is a component of obesity hypoventilation syndrome. ABG ordered for analysis. Patient PaO2 92 on 3L nasal cannula, mild CO2 retention without change in PH. Patient labs significant for WBC count 5.3, hemoglobin 11.7, platelets a 156, sodium 139, potassium 5.2, creatinine 1.06, glucose 244, magnesium 1.5, troponin undetectable, BNP 98. Chest x-ray shows no acute abnormality to explain why patient's oxygen saturations are declining even at rest. Patient continues to require supplemental oxygen to remain saturations in the 90s. Patient's case discussed with her daughter Lynne, who states that with the increase in falls and weakness the environment at home is unsafe and she was actively looking for placement for the patient. Since she is requiring supplemental oxygen we will admit for further treatment as well as [facility] consult for possible placement. Discharge Plan Departure Patient Disposition: Admitted as Observation Clinical Impression: Hypoxia, Generalized weakness, Adult failure to thrive Admit Date/Time: 08/02/23 05:43 Admit Provider: Jack Del Valle
[2023-08-02 03:07] LABS: Add Manual Diff / Slide Review NO; Basophils Absolute Auto 100 /uL (0-100); Basophils Percent Auto 1.1 % (0-2); Eosinophils Absolute Auto 100 /uL (0-450); Eosinophils Percent Auto 2.8 % (2-4); Hematocrit 35.4 % (36-46); Hemoglobin 11.7 g/dL (12.0-16.0); Lymphocytes Absolute Auto 2000 /uL (1100-4500); Lymphocytes Percent Auto 37.3 % (25-40); Mean Corpuscular HGB Conc 33.1 % (30-36); Mean Corpuscular Hemoglobin 32.9 PG (26-34); Mean Corpuscular Volume 99.4 fL (80-100); Monocytes Absolute Auto 500 /uL (0-900); Monocytes Percent Auto 9.6 % (3-14); Neutrophils Absolute Auto 2600 /uL (1500-7000); Neutrophils Percent Auto 49.2 % (50-75); Platelet Count 156 X10^3/uL (150-400); Red Blood Cell Count 3.56 X10^6/uL (4.0-5.2); Red Cell Distribution Width 15.5 % (11.6-14.8); White Blood Cell Count 5.3 X10^3/uL (4.5-11.0)
[2023-08-02 03:18] LABS: Alanine Aminotransferase 25 IU/L (<35); Albumin 4.3 g/dL (3.5-5.0); Albumin Globulin Ratio 1.6 (1.0-2.8); Alkaline Phosphatase 83 U/L (38-126); Aspartate Aminotransferase 40 IU/L (14-36); BUN Creatinine Ratio 27.4 (6-22); Bilirubin Total 0.5 mg/dL (0.2-1.3); Blood Urea Nitrogen 29 mg/dL (7-17); Calcium 9.3 mg/dL (8.4-10.2); Carbon Dioxide 26 mmol/L (22-32); Chloride 107 mmol/L (98-107); Estimated Glomerular Filt Rate 56 mL/min (>60); Globulin 2.7 g/dL (1.7-4.1); Glucose 244 mg/dL (80-110); HEMOLYSIS < 15 (0-50); Magnesium 1.5 mg/dL (1.6-2.3); Potassium 5.2 mmol/L (3.4-5.1); Sodium 139 mmol/L (137-145)
[2023-08-02 03:19] LABS: Creatine Kinase 230 U/L (30-135)
[2023-08-02 03:30] LABS: Troponin I < 0.012 ng/mL (0.01-0.034)
[2023-08-02 03:51] LABS: Blood Gas Collection Site Right Brachial; Fractionated Inspired Oxygen 32; HCO3 ABG 25 mmol/L (23-27); Oxygen Saturation ABG 97 % (95-100); PO2 ABG 92 mmHg (80-100); TCO2 ABG 27 mmol/L (23-27); pH ABG 7.34 (7.35-7.45)
[2023-08-02 03:52] LABS: Allen Test for ABG Passed? Yes, Passed
[2023-08-02 04:11] LABS: NT-proBNP (BNP-Adult 18+) 98 pg/mL (<125)
[2023-08-02] MEDS: SODIUM CHLORIDE 0.9% 1,000 ML 1000 ML IV (04:29)
--- NOTE | 2023-08-02 04:46 | PC.NURSE ---
Back charting 0423. Patient's blood pressure 99/56 Dr. Frye aware, new orders, see JUN.
[2023-08-02] MEDS: MAGNESIUM SULFATE 2 GM/50 ML PIGGYBACK IV (05:24)
--- NOTE | 2023-08-02 06:54 | P.HP_ITS ---
History of Present Illness History of Present Illness Chief complaint: weakness Narrative: From the ED:73-year-old female with history of type 2 diabetes, bipolar disorder, hypertension presents by EMS from home for generalized weakness. Of note, 3rd visit in 10 days for weakness and falls. Patient called 911 at home because she states that she was struggling to put her depends on for 2 hours and called 911 because she could not do it anymore. EMS states that when they arrived the patient was unable to ambulate due to generalized weakness. She was transported to the ER for further evaluation. Found to be hypoxemic, started on 2-3 L of oxygen. Placed in observation for hypoxia, FTT, to be assessed by PT and OT. [facility] Medical History (Updated 08/02/23 @ 07:00 by Jack Stout MD) Bipolar 1 disorder, depressed, partial remission Psychosis COVID-19 Bipolar 1 disorder, mixed, full remission Hyperlipidemia DM type 2 (diabetes mellitus, type 2) Bipolar I disorder, most recent episode depressed, severe without psychotic features Bipolar disorder (1989) Fractures (2007) Foot pain (~2002) Ankle pain (2007) Peripheral neuropathy (2013) Hayfever (~1989) Sleep apnea (08/2015) Hypertension Hypothyroidism Urinary incontinence Cataract (2011) Chicken pox Measles CTS (carpal tunnel syndrome) (1987) RLS (restless legs syndrome) (1999) Anxiety (1994) Depression (1961) Surgical History Anesthesia complication History of surgery (04/2008) History of carpal tunnel repair (~1997) Family History Child Age: 51 Arthritis Mother Heart disease Family history of fraternal twins Family history of identical twins Levin gestation with first Social History marital status: number of children: 2 household members: children lives independently: Yes caregiver/support person: No housing: house pets and animals: No education level: high school occupational status: unemployed leisure activities: reading and volunteer work other: walk,garden,visit friends,christianity,word puzzles seatbelt use: always water heater temp set < 120 deg: Yes working smoke detector in home: Yes fire extinguisher in home: Yes carbon monox detector in home: Yes Smoking Status: Never smoker second hand exposure: No alcohol intake: current substance use type: does not use during the past year weight has: other well-balanced diet: rarely or never daily servings fruits/ve-1 caffeine: Yes eating out: 1-3 times/week frequency: 3-4 times per week duration: 15-30 minutes/day Meds Home Medications and Allergies Home Medications Medication Instructions Recorded Confirmed Type indomethacin 25 mg capsule See Rx Instructions PO TID PRN 06/23/19 06/27/23 Rx gout #40 caps lisinopril 10 mg tablet See Rx Instructions .Route 10/03/22 06/27/23 Rx .COMPLEX #90 tabs divalproex 250 mg tablet,extended 250 mg PO BEDTIME #90 tabs 10/23/22 06/27/23 Rx release 24 hr olanzapine 5 mg tablet 5 mg PO BEDTIME #90 tabs 10/23/22 06/27/23 Rx DISABLED PARKING PLACARD #1 ea 11/24/22 06/27/23 Rx atorvastatin 80 mg tablet 80 mg PO DAILY #90 tabs 01/26/23 06/27/23 Rx levothyroxine 150 mcg tablet 150 mcg PO DAILY #90 tabs 01/26/23 06/27/23 Rx (Synthroid) divalproex 500 mg tablet,extended 1,000 mg (2 x 500 mg) PO BEDTIME 03/12/23 06/27/23 Rx release 24 hr (Depakote ER) 90 days #180 tabs Depends Incontinence supplies #100 ea 03/15/23 06/27/23 Rx Prevail Plus pads #90 ea 03/15/23 06/27/23 Rx atorvastatin 40 mg tablet 40 mg PO DAILY 06/08/23 06/27/23 History nitrofurantoin macrocrystal 100 mg 100 mg PO Q12H #6 caps 06/09/23 06/27/23 Rx capsule oxybutynin chloride 5 mg tablet 5 mg PO BID #60 tabs 06/15/23 06/27/23 Rx nystatin 100,000 unit/gram topical 1 applic topical TID #60 grams 06/22/23 06/27/23 Rx powder metformin 1,000 mg tablet 1,000 mg PO BID #180 tabs 06/27/23 06/27/23 Rx clonidine HCl 0.1 mg tablet 0.2 mg (2 x 0.1 mg) PO BEDTIME #60 07/09/23 07/09/23 Rx tabs gabapentin 300 mg capsule See Rx Instructions .Route .COMPLEX 07/09/23 07/09/23 History cefpodoxime 200 mg tablet 200 mg PO Q12H #14 tabs 07/23/23 Rx magnesium 250 mg tablet 250 mg PO DAILY #10 tabs 07/24/23 Rx metformin 500 mg tablet See Rx Instructions PO .COMPLEX 07/27/23 Rx #90 tabs allopurinol 300 mg tablet See Rx Instructions .Route 08/01/23 Rx .COMPLEX #90 tabs Allergies Allergy/AdvReac Type Severity Reaction Status Date / Time Sulfa (Sulfonamide Allergy Mild RASH Verified 06/27/23 12:05 Antibiotics) haloperidol [HALOPERIDOL] Allergy Unknown Verified 06/27/23 12:05 lithium [LITHIUM] Allergy Unknown Verified 06/27/23 12:05 risperidone [RISPERIDONE] Allergy Unknown Verified 06/27/23 12:05 lidocaine AdvReac Intermediate gait Verified 06/27/23 12:05 instability perphenazine AdvReac uncontrolled Verified 06/27/23 12:05 hand shaking Review of Systems Review of Systems Narrative: Unobtainable - not available for visit Exam Vital Signs (past 8 hours): - 08/02/23 02:41 08/02/23 02:48 08/02/23 03:00 Temperature 97.5 F L Pulse Rate 71 70 66 Respiratory Rate 16 Blood Pressure 113/57 L Pulse Oximetry 94 91 87 L Oxygen Delivery Method Room Air Room Air Room Air Oxygen Flow Rate 08/02/23 03:02 08/02/23 03:06 08/02/23 03:06 Temperature Pulse Rate 69 Respiratory Rate 12 Blood Pressure 104/53 L Pulse Oximetry 94 Oxygen Delivery Method Nasal Cannula Oxygen Flow Rate 3 08/02/23 03:30 08/02/23 03:30 08/02/23 04:00 Temperature Pulse Rate 67 65 Respiratory Rate 20 30 H Blood Pressure 108/53 L Pulse Oximetry 97 96 Oxygen Delivery Method Nasal Cannula Nasal Cannula Oxygen Flow Rate 3 3 08/02/23 04:00 08/02/23 04:23 08/02/23 04:23 Temperature Pulse Rate 65 Respiratory Rate 31 H Blood Pressure 98/54 L 99/56 L Pulse Oximetry 97 Oxygen Delivery Method Nasal Cannula Oxygen Flow Rate 3 08/02/23 04:30 08/02/23 04:30 08/02/23 04:44 Temperature Pulse Rate 64 65 Respiratory Rate 19 31 H Blood Pressure 97/55 L Pulse Oximetry 97 97 Oxygen Delivery Method Nasal Cannula Nasal Cannula Oxygen Flow Rate 3 3 08/02/23 04:44 08/02/23 05:00 08/02/23 05:03 Temperature Pulse Rate 62 63 Respiratory Rate 28 H 30 H Blood Pressure 102/55 L Pulse Oximetry 98 98 Oxygen Delivery Method Nasal Cannula Nasal Cannula Oxygen Flow Rate 3 3 08/02/23 05:03 08/02/23 05:30 08/02/23 05:30 Temperature Pulse Rate 65 Respiratory Rate 31 H Blood Pressure 109/55 L 109/54 L Pulse Oximetry 98 Oxygen Delivery Method Nasal Cannula Oxygen Flow Rate 3 08/02/23 06:00 08/02/23 06:00 Temperature Pulse Rate 63 Respiratory Rate 28 H Blood Pressure 107/54 L Pulse Oximetry 98 Oxygen Delivery Method Nasal Cannula Oxygen Flow Rate 3 Oxygen Delivery Method Nasal Cannula Oxygen Flow Rate 3 Narrative Exam Narrative: Not available for exam Objective Labs 08/02/23 03:00 08/02/23 03:00 Labs: Laboratory Results - last 24 hr 08/02/23 08/02/23 03:00 03:31 WBC 5.3 RBC 3.56 L Hgb 11.7 L Hct 35.4 L MCV 99.4 MCH 32.9 MCHC 33.1 RDW 15.5 H Plt Count 156 Neut % (Auto) 49.2 L Lymph % (Auto) 37.3 [place] % (Auto) 9.6 Eos % (Auto) 2.8 Baso % (Auto) 1.1 Neut # (Auto) 2600 Lymph # (Auto) 2000 [place] # (Auto) 500 Eos # (Auto) 100 Baso # (Auto) 100 ABG Sample Site Right brachial ABG pH 7.34 L ABG pCO2 47.0 H ABG pO2 92 ABG HCO3 25 ABG Total CO2 27 ABG O2 Saturation 97 ABG Base Excess 0.0 FiO2 32 Sodium 139 Potassium 5.2 H Chloride 107 Carbon Dioxide 26 BUN 29 H Creatinine 1.06 H Estimated GFR 56 L BUN/Creatinine Ratio 27.4 H Glucose 244 H Calcium 9.3 Magnesium 1.5 L Total Bilirubin 0.5 AST 40 H ALT 25 Alkaline Phosphatase 83 Total Creatine Kinase 230 H Troponin I < 0.012 NT-Pro-B Natriuret Pep 98 Total Protein 7.0 Albumin 4.3 Globulin 2.7 Albumin/Globulin Ratio 1.6 Assessment & Plan Assessment and plan (1) Adult failure to thrive: Status: Acute (2) Generalized weakness: Status: Acute (3) Hypoxia: Status: Acute (4) Recurrent falls: Status: Chronic (5) Hyperlipidemia: Status: Acute (6) DM type 2 (diabetes mellitus, type 2): Qualifiers: Diabetes mellitus senior care insulin use: without intermediate teacher use Diabetes mellitus complication status: with hyperglycemia Qualified Code(s): E11.65 - Type 2 diabetes mellitus with hyperglycemia Status: Chronic (7) Hypothyroidism: Qualifiers: Hypothyroidism type: acquired Qualified Code(s): E03.9 - Hypothyroidism, unspecified Status: Chronic (8) Hypertension: Status: Chronic (9) Gout: Status: Acute (10) Bipolar 1 disorder, depressed, partial remission: Status: Acute Assessment & Plan narrative: 1. FTT, Hx of recurrent falls, Generalized Weakness - numerous ED visits for UTI, back pain, weakness - likely needs placement - PT, OT evaluation 2. Hypoxia - clinically w/o signs of PE - Hx of sleep apnea - oxygen prn 3. Bipolar Disorder - Depakote, Zyprexa 4. DM - metformin, SS 5. Hypothyroidism - levothyroxine 6. Gout - Allopurinol 7. HTN - Lisinopril held, continue clonidine 8. Urinary Incontinence - oxybutynine DVT prophylaxis - Lovenox
--- NOTE | 2023-08-02 07:25 | PM.HP.1 ---
History of Present Illness History of Present Illness Date Patient Seen: 08/02/23 Chief complaint: weakness Narrative: From night doctor: From the ED:73-year-old female with history of type 2 diabetes, bipolar disorder, hypertension presents by EMS from home for generalized weakness. Of note, 3rd visit in 10 days for weakness and falls. Patient called 911 at home because she states that she was struggling to put her depends on for 2 hours and called 911 because she could not do it anymore. EMS states that when they arrived the patient was unable to ambulate due to generalized weakness. She was transported to the ER for further evaluation. Found to be hypoxemic, started on 2-3 L of oxygen. Placed in observation for hypoxia, FTT, to be assessed by PT and OT. She lives in [place] with her daughter. She notes having COVID in June not really bouncing back since that time. She has had persistent, global weakness. She did fall once last week. She denies any diarrhea or anorexia. She does have chronic leg edema, but denies any history of heart problems. She was able to come off from oxygen this morning. She denies any chest pain. No recent fevers or chills. No urinary symptoms. [facility] Medical History Bipolar 1 disorder, depressed, partial remission Psychosis COVID-19 Bipolar 1 disorder, mixed, full remission Hyperlipidemia DM type 2 (diabetes mellitus, type 2) Bipolar I disorder, most recent episode depressed, severe without psychotic features Bipolar disorder (1989) Fractures (2007) Foot pain (~2002) Ankle pain (2007) Peripheral neuropathy (2013) Hayfever (~1989) Sleep apnea (08/2015) Hypertension Hypothyroidism Urinary incontinence Cataract (2011) Chicken pox Measles CTS (carpal tunnel syndrome) (1987) RLS (restless legs syndrome) (1999) Anxiety (1994) Depression (1961) Surgical History Anesthesia complication History of surgery (04/2008) History of carpal tunnel repair (~1997) Family History Child Age: 51 Arthritis Mother Heart disease Family history of fraternal twins Family history of identical twins Levin gestation with first Social History marital status: number of children: 2 household members: children lives independently: Yes caregiver/support person: No housing: house pets and animals: No education level: high school occupational status: unemployed leisure activities: reading and volunteer work other: walk,garden,visit friends,spiritism,word puzzles seatbelt use: always water heater temp set < 120 deg: Yes working smoke detector in home: Yes fire extinguisher in home: Yes carbon monox detector in home: Yes Smoking Status: Never smoker second hand exposure: No alcohol intake: current substance use type: does not use during the past year weight has: other well-balanced diet: rarely or never daily servings fruits/ve-1 caffeine: Yes eating out: 1-3 times/week frequency: 3-4 times per week duration: 15-30 minutes/day Meds Home Medications and Allergies Home Medications Medication Instructions Recorded Confirmed Type indomethacin 25 mg capsule See Rx Instructions PO TID PRN 06/23/19 06/27/23 Rx gout #40 caps lisinopril 10 mg tablet See Rx Instructions .Route 10/03/22 06/27/23 Rx .COMPLEX #90 tabs divalproex 250 mg tablet,extended 250 mg PO BEDTIME #90 tabs 10/23/22 06/27/23 Rx release 24 hr olanzapine 5 mg tablet 5 mg PO BEDTIME #90 tabs 10/23/22 06/27/23 Rx DISABLED PARKING PLACARD #1 ea 11/24/22 06/27/23 Rx atorvastatin 80 mg tablet 80 mg PO DAILY #90 tabs 01/26/23 06/27/23 Rx levothyroxine 150 mcg tablet 150 mcg PO DAILY #90 tabs 01/26/23 06/27/23 Rx (Synthroid) divalproex 500 mg tablet,extended 1,000 mg (2 x 500 mg) PO BEDTIME 03/12/23 06/27/23 Rx release 24 hr (Depakote ER) 90 days #180 tabs Depends Incontinence supplies #100 ea 03/15/23 06/27/23 Rx Prevail Plus pads #90 ea 03/15/23 06/27/23 Rx atorvastatin 40 mg tablet 40 mg PO DAILY 06/08/23 06/27/23 History nitrofurantoin macrocrystal 100 mg 100 mg PO Q12H #6 caps 06/09/23 06/27/23 Rx capsule oxybutynin chloride 5 mg tablet 5 mg PO BID #60 tabs 06/15/23 06/27/23 Rx nystatin 100,000 unit/gram topical 1 applic topical TID #60 grams 06/22/23 06/27/23 Rx powder metformin 1,000 mg tablet 1,000 mg PO BID #180 tabs 06/27/23 06/27/23 Rx clonidine HCl 0.1 mg tablet 0.2 mg (2 x 0.1 mg) PO BEDTIME #60 07/09/23 07/09/23 Rx tabs gabapentin 300 mg capsule See Rx Instructions .Route .COMPLEX 07/09/23 07/09/23 History cefpodoxime 200 mg tablet 200 mg PO Q12H #14 tabs 07/23/23 Rx magnesium 250 mg tablet 250 mg PO DAILY #10 tabs 07/24/23 Rx metformin 500 mg tablet See Rx Instructions PO .COMPLEX 07/27/23 Rx #90 tabs allopurinol 300 mg tablet See Rx Instructions .Route 08/01/23 Rx .COMPLEX #90 tabs Allergies Allergy/AdvReac Type Severity Reaction Status Date / Time Sulfa (Sulfonamide Allergy Mild RASH Verified 06/27/23 12:05 Antibiotics) haloperidol [HALOPERIDOL] Allergy Unknown Verified 06/27/23 12:05 lithium [LITHIUM] Allergy Unknown Verified 06/27/23 12:05 risperidone [RISPERIDONE] Allergy Unknown Verified 06/27/23 12:05 lidocaine AdvReac Intermediate gait Verified 06/27/23 12:05 instability perphenazine AdvReac uncontrolled Verified 06/27/23 12:05 hand shaking Review of Systems Review of Systems Narrative: All else reviewed and otherwise unremarkable except as noted in the history and physical. Exam Vital Signs (past 8 hours): - 08/02/23 02:41 08/02/23 02:48 08/02/23 03:00 Temperature 97.5 F L Pulse Rate 71 70 66 Respiratory Rate 16 Blood Pressure 113/57 L Pulse Oximetry 94 91 87 L Oxygen Delivery Method Room Air Room Air Room Air Oxygen Flow Rate 08/02/23 03:02 08/02/23 03:06 08/02/23 03:06 Temperature Pulse Rate 69 Respiratory Rate 12 Blood Pressure 104/53 L Pulse Oximetry 94 Oxygen Delivery Method Nasal Cannula Oxygen Flow Rate 3 08/02/23 03:30 08/02/23 03:30 08/02/23 04:00 Temperature Pulse Rate 67 65 Respiratory Rate 20 30 H Blood Pressure 108/53 L Pulse Oximetry 97 96 Oxygen Delivery Method Nasal Cannula Nasal Cannula Oxygen Flow Rate 3 3 08/02/23 04:00 08/02/23 04:23 08/02/23 04:23 Temperature Pulse Rate 65 Respiratory Rate 31 H Blood Pressure 98/54 L 99/56 L Pulse Oximetry 97 Oxygen Delivery Method Nasal Cannula Oxygen Flow Rate 3 08/02/23 04:30 08/02/23 04:30 08/02/23 04:44 Temperature Pulse Rate 64 65 Respiratory Rate 19 31 H Blood Pressure 97/55 L Pulse Oximetry 97 97 Oxygen Delivery Method Nasal Cannula Nasal Cannula Oxygen Flow Rate 3 3 08/02/23 04:44 08/02/23 05:00 08/02/23 05:03 Temperature Pulse Rate 62 63 Respiratory Rate 28 H 30 H Blood Pressure 102/55 L Pulse Oximetry 98 98 Oxygen Delivery Method Nasal Cannula Nasal Cannula Oxygen Flow Rate 3 3 08/02/23 05:03 08/02/23 05:30 08/02/23 05:30 Temperature Pulse Rate 65 Respiratory Rate 31 H Blood Pressure 109/55 L 109/54 L Pulse Oximetry 98 Oxygen Delivery Method Nasal Cannula Oxygen Flow Rate 3 08/02/23 06:00 08/02/23 06:00 08/02/23 06:30 Temperature Pulse Rate 63 64 Respiratory Rate 28 H 31 H Blood Pressure 107/54 L Pulse Oximetry 98 98 Oxygen Delivery Method Nasal Cannula Nasal Cannula Oxygen Flow Rate 3 3 08/02/23 06:30 08/02/23 07:00 08/02/23 07:00 Temperature Pulse Rate 64 Respiratory Rate 26 H Blood Pressure 101/55 L 103/52 L Pulse Oximetry 98 Oxygen Delivery Method Nasal Cannula Oxygen Flow Rate 3 Oxygen Delivery Method Nasal Cannula Oxygen Flow Rate 3 Narrative Exam Narrative: NAD, alert and oriented, fluent speech, calm. Flat affect. Normocephalic skull, EOMI, anicteric sclera, symmetric pupils. Oropharynx unremarkable, no droop. Neck supple, midline trachea, no adenopathy. Lungs clear, normal rate and effort. Heart regular, no murmur gallop or rub. Abdomen is soft, non distended and non tender. Extremities are notable for bilateral pitting edema. Skin is free of rash or lesions. Joints are not swollen or deformed. Judgment appears to be normal. Objective Imaging Chest x-ray: Radiologist's impression: Poor inspiratory effort, mild pulmonary edema. Labs 08/02/23 03:00 08/02/23 03:00 Labs: Laboratory Results - last 24 hr 08/02/23 08/02/23 03:00 03:31 WBC 5.3 RBC 3.56 L Hgb 11.7 L Hct 35.4 L MCV 99.4 MCH 32.9 MCHC 33.1 RDW 15.5 H Plt Count 156 Neut % (Auto) 49.2 L Lymph % (Auto) 37.3 Camp % (Auto) 9.6 Eos % (Auto) 2.8 Baso % (Auto) 1.1 Neut # (Auto) 2600 Lymph # (Auto) 2000 Camp # (Auto) 500 Eos # (Auto) 100 Baso # (Auto) 100 ABG Sample Site Right brachial ABG pH 7.34 L ABG pCO2 47.0 H ABG pO2 92 ABG HCO3 25 ABG Total CO2 27 ABG O2 Saturation 97 ABG Base Excess 0.0 FiO2 32 Sodium 139 Potassium 5.2 H Chloride 107 Carbon Dioxide 26 BUN 29 H Creatinine 1.06 H Estimated GFR 56 L BUN/Creatinine Ratio 27.4 H Glucose 244 H Calcium 9.3 Magnesium 1.5 L Total Bilirubin 0.5 AST 40 H ALT 25 Alkaline Phosphatase 83 Total Creatine Kinase 230 H Troponin I < 0.012 NT-Pro-B Natriuret Pep 98 Total Protein 7.0 Albumin 4.3 Globulin 2.7 Albumin/Globulin Ratio 1.6 Assessment & Plan Assessment & Plan narrative: 1. FTT, Hx of recurrent falls, Generalized Weakness (since recent Covid). Present on admission and active. - numerous ED visits for UTI, back pain, weakness - likely needs placement - PT, OT evaluation 2. Acute hypoxic respiratory failure. Present on admission and resolved. - clinically w/o signs of PE - Hx of sleep apnea - oxygen prn 3. Leg edema. Present on admission and resolved. - ECHo to assess LVEF. 3. Bipolar Disorder. Present on admission and active. - Depakote, Zyprexa continue. 4. DM 2. Present on admission and active. - metformin, SS 5. Hypothyroidism. Present on admission and active. - levothyroxine, continue. 6. Gout. Present on admission and active. - Allopurinol, continue. 7. HTN. Present on admission and active. - Lisinopril held, continue clonidine - monitor BP 8. Urinary Incontinenc. Present on admission and active. e - oxybutynine PLAN: -echo to assess LV function. -trial of Lasix 20 IV x1 -wean O2 as able -PT evaluation -discussed with public health social worker, discharge planning. Code status: full Proxy: Admitted to observation status. Time Spent With Patient Time with patient: 30 to 49 minutes with 50% spent counseling/coordinating care Quality MIPS - Admit I confirm the patient?s Advance Care Plan is present, Code status is documented, Surrogate decision maker is in patient?s record [If Yes, STOP here]: Yes MIPS - Meds 'Current medications' to include all prescriptions, [id number] products, herbals, cannabis/cannabidiol products, and vitamin/mineral/dietary (nutritional) supplements. I have utilized all available resources to obtain, update, or review the patient?s current medications. [If Yes, STOP here]: Yes
[2023-08-02] MEDS: allopurinoL 100 MG TABLET 300 MG PO (09:13)
[2023-08-02] MEDS: OXYBUTYNIN 5 MG TABLET PO ×2 (09:14→20:51)
[2023-08-02] MEDS: GABAPENTIN 300 MG CAPSULE PO (09:14)
[2023-08-02] MEDS: METFORMIN HCL 500 MG TABLET 1000 MG PO ×2 (09:14→20:50)
[2023-08-02] MEDS: ATORVASTATIN 20 MG TABLET 40 MG PO (09:15)
[2023-08-02] MEDS: ENOXAPARIN 40 MG/0.4 ML SYRINGE SUBCUT ×2 (09:15→20:52)
[2023-08-02] MEDS: INSULIN LISPRO 100 UNIT/ML 3ML VIAL SUBCUT ×4 (09:16→20:53)
[2023-08-02] MEDS: LEVOTHYROXINE 50 MCG TABLET 150 MCG PO (09:21)
--- NOTE | 2023-08-02 09:48 | DI.ECHO.S_ITS ---
[facility]+ [facility] : : [id number] : [place] : : [id number] : : Phone: [phone] Echocardiogram Report + + :Name: MILAD HERNANDEZ V Study Date: 08/02/2023 Height: 63 in : :[facility] ReadingLocation: Weight: 245 lb : : Gender: Female BSA: 2.1 m2 : :: 1950 Age: 73 yrs BP: 103/52 mmHg: :Reason For Study: EDEMA, PULMONARY EDEMA : :Ordering Physician: DAMASO, : :EDNA Franks Performed By: Sharron Velasco : :Referring: EDNA PETIT : + + Interpretation Summary Normal sinus rhythm. Normal LV size and wall thickness. Normal wall motion and LV systolic function. Ejection fraction 55-60%. No diastolic dysfunction. Normal chamber sizes. No significant valvular abnormalities. Compared to prior study 11/07/2022 no significant changes have occurred. Procedure: A two-dimensional transthoracic echocardiogram with color flow and Doppler was performed. Comparison is made with the echocardiogram of 11/07/2022. The study quality was technically difficult. The patient was in sinus rhythm with heart rates between 68-70 bpm during the exam. Left Ventricle: The left ventricle is normal in size and wall thickness. The ejection fraction is estimated to be 55-60%. Right Ventricle: The right ventricle is grossly normal size. The right ventricular systolic function is normal. Atria: The left atrial size is normal. Right atrial size is normal. There is no Doppler evidence for an interatrial shunt. Mitral Valve: The mitral valve is normal in structure and function. There is no mitral regurgitation noted. Aortic Valve: The aortic valve is trileaflet. The aortic valve opens well. There is no aortic valve stenosis. No aortic regurgitation is present. Tricuspid Valve: The tricuspid valve is normal in structure and function. There is mild tricuspid regurgitation. The right ventricular systolic pressure is estimated to be at least 39 mmHg based on an estimated right atrial pressure of 15 mm Hg. Pulmonic Valve: The pulmonic valve leaflets are thin and pliable; valve motion is normal. There is no pulmonic valvular regurgitation. Great Vessels: The aortic root is normal size. The dimensions of the ascending aorta are normal. The IVC is dilated (diameter is greater than 2.1 cm) and it collapses less than 50% with a sniff. This suggests a high right atrial pressure of 15 mm Hg. Pericardium/ Pleura There is no pericardial effusion. There is no pleural effusion. MMode/2D Measurements & Calculations LVIDd: 4.9 cm LVOT diam: 2.0 cm LVIDs: 3.4 cm Ao root diam: 3.1 cm FS: 29.9 % asc Aorta Diam: 3.5 cm IVSd: 0.81 cm LVPWd: 1.00 cm LV diaz. diameter/BSA (cm/m^2): 2.3 LV sys. diameter/BSA (cm/m^2): 1.6 LA A2 area: 19.9 cm2 RA long axis: 4.2 cm LA A4 area: 17.4 cm2 RA area: 10.9 cm2 LA length (vol): 4.8 cm RA vol: 24.2 ml LA vol: 60.5 ml RA : 11.5 ml/m2 LA vol index: 28.7 ml/m2 IVC diam: 2.5 cm TAPSE: 1.9 cm Doppler Measurements & Calculations Ao V2 max: 159.4 cm/sec LVOT Max Francisco: 97.0 cm/sec Ao V2 mean: 117.3 cm/sec LV V1 max P.8 mmHg Ao max P.2 mmHg LV V1 VTI: 23.0 cm Ao mean P.0 mmHg HEATHER(I,D): 2.0 cm2 Ao V2 VTI: 36.2 cm HEATHER(V,D): 1.9 cm2 sev ratio: 0.64 HEATHER indexed to BSA (cm^2/m^2): 0.93 MV E max francisco: 84.0 cm/sec TR max francisco: 248.4 cm/sec MV A max francisco: 82.4 cm/sec TR max P.7 mmHg MV E/A: 1.0 PA V2 max: 81.0 cm/sec Med Peak E' Francisco: 7.7 cm/sec PA V2 mean: 54.7 cm/sec E/E' med: 10.9 PA mean P.3 mmHg Lat Peak E' Francisco: 9.6 cm/sec PA pr(Accel): 46.5 mmHg E/E' lat: 8.7 E/e' average: 9.8 MV dec time: 0.20 sec SV(LVOT): 71.3 ml Electronically signed by: Asuncion Barber M.D. on Reading Physician:08/02/2023 02:12 PM
--- NOTE | 2023-08-02 11:02 | PT-IP ANOTE ---
PT order received and PT reviewed chart and checked in on pt who is getting ready to have an ECHO. Will con't PT efforts. Thank you for this PT consult.
--- NOTE | 2023-08-02 11:42 | CM.DANOTE ---
Initial DCP Assessment Note Pt is a 73 yo female, resident of [place], arrives for the third time in the last few weeks for fall and weakness. PCP: Alina Corcoran Payer: Hussain MCR/[facility] Reviewed chart, patient admitted under hospitalist service although will be taken over by PCP Dr Corcoran and her colleagues tomorrow. Reviewed chart, met with patient, and spoke with community can filling and closing machine tender Dain Mason Patient sleep during visit, says she receives assist with meals, chores, meds, bathing and dressing. Patient admits to being sedentary mostly and ambulates short distances only. Patient lives with daughter Lynne P [phone] her 14 yo son and a 19 yo roommate. Patient receives 115 hours of [facility] care giving, KEYSHA CM is Lauren Vasques P [phone]. According to Dain Cuevas, D community can filling and closing machine tender, EMS responds to calls to patient's home often and Dain recently received referral. Dain has made connection with colton Batista who has reported feeling overwhelmed with patient's care; daughter works methods time analyst. Colton Batista has been working with [facility] to discuss buttermaker continuous churn care options for patient and patient willing to consider. Unable to connect with colton Batista today; CM team will plan to follow closely, awaiting therapy recs and will discuss with patient and daughter once PT/OT evals are completed. Patient is currently OBS status although has a managed MCR which may consider approving a SNF authorization request if SNF recommended by therapy team. CM team will plan to follow closely RAFA Carrizales Discharge Planning/Care Management CM Discharge Assessment Start: 08/02/23 11:38 Freq: Status: Active Protocol: Document 08/02/23 11:38 DEVORA (Rec: 08/02/23 11:41 DEVORA [id number]) Discharge Planning Assessment Assigned Candy Forming Machine Operator RAFA Alegre DPOA/Assigned Designee Name colton [place] Contact Information [phone] Advance Directives? No History Provided By Patient,Family Member,Medical Record Prior Living Arrangements House Household Members children Type of transporation used prior to Relies on Others admit Independent with ADL's No Is patient alert and oriented? Yes: With some confusion Needs Assistance With Bathing,Grooming,Meal Prep, Toileting,Managing Medications ,Home Chores / Shopping Patient/Family Preference Senior Care Facility,Home with Home Health Barriers to Discharge Yes Comment Patient would benefit from increase in care at home vs facility level of care. Discharge plan TBD Transportation Arrangement TBD
[2023-08-02] MEDS: FUROSEMIDE 20 MG/2 ML VIAL IV (12:27)
--- NOTE | 2023-08-02 13:12 | PT.IIE ---
Current Diagnoses Hypothyroidism, unspecified (08/02/23) Type 2 diabetes mellitus with hyperglycemia (08/02/23) Hyperlipidemia, unspecified (08/02/23) Bipolar disorder, in partial remission, most recent episode depressed (08/02/23) Essential (primary) hypertension (08/02/23) Gout, unspecified (08/02/23) Hypoxemia (08/02/23) Repeated falls (08/02/23) Weakness (08/02/23) Adult failure to thrive (08/02/23) Surgical History (Last Reviewed 08/02/23 @ 07:26 by Wale Allen MD) Anesthesia complication History of carpal tunnel repair (~1997) History of surgery (04/2008) Medical History (Last Reviewed 08/02/23 @ 07:26 by Wale Allen MD) Ankle pain (2007) Anxiety (1994) Bipolar 1 disorder, depressed, partial remission Bipolar 1 disorder, mixed, full remission Bipolar disorder (1989) Bipolar I disorder, most recent episode depressed, severe without psychotic features Cataract (2011) Chicken pox COVID-19 CTS (carpal tunnel syndrome) (1987) Depression (196) DM type 2 (diabetes mellitus, type 2) Foot pain (~2002) Fractures (2007) Hayfever (~1989) Hyperlipidemia Hypertension Hypothyroidism Measles Peripheral neuropathy (2013) Psychosis RLS (restless legs syndrome) (1999) Sleep apnea (08/2015) Urinary incontinence Physical Therapy Inpatient Evaluation/Re-Eval M1 PT/OT-IP Prior Functional Status Start: 08/02/23 07:55 Freq: NEEDED Status: Active Protocol: Document 08/02/23 11:58 MB (Rec: 08/02/23 13:12 MB [id number]) Medical Review Prior Functional Status Medical History Reviewed Yes Diet/Fluid Consistency Regular Communication WNLs Mobility and Gait Pt states that she walked minimally in the house and occ went outside to work with her plants and she used cane or rollator Activities of Daily Living and IADL's Assistance 3x/wk for baths and cooking from HH care worker and daughter also assisted as needed. Pt spends a lot of time in her recliner and sleeps in recliner or bed. Social History Household Members children Living Arrangements House Number of Floors (Floors) Two Floors Number of Stairs To Enter/Railing? 3 steps and no rail to enter. Pt states that someone is supposed to come to put in a ramp. Home Environment Standard Height Toilet,Tub/ Shower Home Equipment Four Wheel Walker,Straight Cane,Bedside Commode,Shower Seat without Backrest,Grab Bars In Shower Employment Status Retired M2 PT-IP Current Condition Start: 08/02/23 07:55 Freq: NEEDED Status: Active Protocol: Document 08/02/23 11:58 MB (Rec: 08/02/23 13:12 MB [id number]) Physical Therapy Current Condition Current Condition Evaluation Date 08/02/23 Treatment Diagnosis Weakness, falls, hypoxia M3 PT-IP Subjective Start: 08/02/23 07:55 Freq: NEEDED Status: Active Protocol: Document 08/02/23 11:58 MB (Rec: 08/02/23 13:12 MB [id number]) Subjective Physical Therapy Visit Type Type Initial Evaluation Visit Start Time 11:58 Visit Stop Time 12:30 Number of CEMENT TRUCK DRIVER Visits 0 Physical Therapy Visit Comments Patient Comments Pt will be glad to get up to the chair to eat lunch Therapy Pain Assessment Pain When Pain Assessed At Rest Pain Present Pain Present Denied Pain M4 PT-IP Mobility and Gait Start: 08/02/23 07:55 Freq: NEEDED Status: Active Protocol: Document 08/02/23 11:58 MB (Rec: 08/02/23 13:12 MB [id number]) PT-Bed Mobility Assessment Supine to Sit Supine to Sit Contact Guard Assistance,1 Person Assistance,Head of Bed Elevated,Bedrails Scooting Scooting to Edge of Bed Dependent PT-Transfer Assessment Sit to and From Stand Sit to and from Stand Minimal Assistance,1 Person Assistance,Use of Upper Extremities Equipment Transfer Assistive Device Gait Belt,Front Wheeled Walker Orthotic/Prosthetic Devices or Brace: No Transfers Transfer Destination Chair,Bedside Commode Transfer Technique Stepping Transfer Ability Level of Assist Minimal Assistance,1 Person Assistance,Use of Upper Extremities Comments Mobility Comments Pt cannot scoot to the EOB once up sitting and pad is not underneath her well and it is challenging to assist her to the EOB. B LE edema and redness today. PRESSURE SEALER AND TESTER nearby to assist with BSC placement and hygiene and PT assists with brief and she is dependent for brief doffing and donning. O2 line does not reach to check O2 on RA with mobility and sats are in the 90s at rest on RA. Gait Assessment Gait Gait Assistance Required: Minimum Assistance,1 Person Assist Distance (Feet) 2 Able to Maintain Weight Bearing Status Yes During Gait Assistive Devices Assistive Device Gait Belt,Front Wheeled Walker Orthotic/Prosthetic Devices or Brace: No Gait Deviations General Gait Pattern Antalgic,Decreased Stride Length,Decreased Feet Clearance,Flexed Trunk,Wide Based Gait Factors Limiting Gait Function Factors Limiting Gait Function Decreased Activity Tolerance, Decreased Strength,Difficulty Following Directions, Incoordination,Limited Range of Motion,Poor Balance,Poor Safety Awareness Comments Gait Comments Pt takes a few steps to the right to BSC from the bed and then from the BSC to the chair . Use of RW and good stepping once up. PT-Balance Assessment Sitting Balance and Reactions Static Sitting Balance Ability Good Dynamic Sitting Balance Ability Poor Standing Balance and Reactions Static Standing Balance Ability Fair Dynamic Standing Balance Ability Fair Device Used RW M5 PT-IP Objective Assessments Start: 08/02/23 07:55 Freq: NEEDED Status: Active Protocol: Document 08/02/23 11:58 MB (Rec: 08/02/23 13:12 MB [id number]) Orientation Orientation/Cognition Level of Alertness Alert Orientation Name,Age,Birthday,Place, Situation Language Function Ability No Deficits Noted Safety Awareness Decreased Safety Awareness Memory Description No Deficits Noted Gross Range of Motion Upper Extremity ROM Impairments Defer to OT Lower Extremity ROM Assessment Bilaterally Impaired Impairments Edema and decreased active movement of both legs Strength Comments Strength Comments Functionally, LEs are grossly 3/5 with mobility M6 PT-IP Treatment Start: 08/02/23 07:55 Freq: NEEDED Status: Active Protocol: Document 08/02/23 11:58 MB (Rec: 08/02/23 13:12 MB [id number]) Physical Therapy Treatment Education Education Provided Safety M7 PT-IP Assessment and Plan Start: 08/02/23 07:55 Freq: NEEDED Status: Active Protocol: Document 08/02/23 11:58 MB (Rec: 08/02/23 13:12 MB [id number]) PT Summary Assessment and Plan Potential Rehabilitation Potential Good Status of Condition at Evaluation Evolving Summary Impairments ROM,Strength,Balance,Bed Mobility,Transfers,Gait, Activity Tolerance Progress Towards Goals Slow Progress due to Activity Tolerance Assessment Summary Pt is a 73 y/o female presenting with increased body habitus, B LE edema and functional weakness, especially with scooting to the EOB, with PT on assessment date. She is on RA and sats are in the 90s at rest but line does not reach well enough today to check with mobility as pt needs to driscoll d /t urinary incontinence. Pt requires heavy assistance to scoot to EOB and for hygiene and min A for stepping and transfers. She will benefit from acute and post-acute PT to maximize functional mobility and I. Recommend SNF at d/c. Goals Bed Mobility Goal Independent Transfer Goal Independent,Front Wheeled Walker Gait Goal Independent,Front Wheel Walker Gait Distance 50 Other Goals Pt will ascend and descend 3 steps to allow safe home entrance with use of LRAD and CGA. Days to Meet Goals 5 Frequency of Treatment Frequency Of Treatment Once a Day Treatment Plan Physical Therapy Treatment Plan Bed Mobility Training,Transfer Training,Gait Training, Therapeutic Exercise,Balance Retraining,Discharge Planning, Hot or Cold Pack,Neuromuscular Re-ed Weight Bearing Status Weight Bearing Status Weight Bear as Tolerated Recommendations To Nursing Amount of Assist Needed 2 Person Assist Discharge Recommendations PT Discharge Recommendations SNF Rehab Transportation Needs at Discharge Wheelchair/Cabulance
--- NOTE | 2023-08-02 14:09 | PC.NURSE ---
Pt has required 4 complete linen and gown changes since being admitted to the floor at 0720.
--- NOTE | 2023-08-02 14:16 | OT.IP.EVAL ---
Current Diagnoses Hypothyroidism, unspecified (08/02/23) Type 2 diabetes mellitus with hyperglycemia (08/02/23) Hyperlipidemia, unspecified (08/02/23) Bipolar disorder, in partial remission, most recent episode depressed (08/02/23) Essential (primary) hypertension (08/02/23) Gout, unspecified (08/02/23) Hypoxemia (08/02/23) Repeated falls (08/02/23) Weakness (08/02/23) Adult failure to thrive (08/02/23) Past Medical History (Last Reviewed 08/02/23 @ 07:26 by Wale Allen MD) Ankle pain (2007) Anxiety (1994) Bipolar 1 disorder, depressed, partial remission Bipolar 1 disorder, mixed, full remission Bipolar disorder (1989) Bipolar I disorder, most recent episode depressed, severe without psychotic features Cataract (2011) Chicken pox COVID-19 CTS (carpal tunnel syndrome) (1987) Depression (196) DM type 2 (diabetes mellitus, type 2) Foot pain (~2002) Fractures (2007) Hayfever (~1989) Hyperlipidemia Hypertension Hypothyroidism Measles Peripheral neuropathy (2013) Psychosis RLS (restless legs syndrome) (1999) Sleep apnea (08/2015) Urinary incontinence Surgical History (Last Reviewed 08/02/23 @ 07:26 by Wale Allen MD) Anesthesia complication History of carpal tunnel repair (~1997) History of surgery (04/2008) Occupational Therapy Inpatient Evaluation/Re-Eval M1 PT/OT-IP Prior Functional Status Start: 08/02/23 14:17 Freq: NEEDED Status: Active Protocol: Document 08/02/23 14:17 [facility] (Rec: 08/02/23 14:41 [facility] [id number]) Medical Review Prior Functional Status Medical History Reviewed Yes Diet/Fluid Consistency Regular Communication WNLs Mobility and Gait Pt states that she walked minimally in the house and occ went outside to work with her plants and she used cane or rollator Activities of Daily Living and IADL's Assistance 3x/wk for baths and cooking from HH care worker and daughter also assisted as needed. Pt spends a lot of time in her recliner and sleeps in recliner or bed. Social History Household Members children Living Arrangements House Number of Floors (Floors) Two Floors Number of Stairs To Enter/Railing? 3 steps and no rail to enter. Pt states that someone is supposed to come to put in a ramp. Home Environment Standard Height Toilet,Tub/ Shower Home Equipment Four Wheel Walker,Bedside Commode,Shower Seat without Backrest,Hand Held Shower,Grab Bars In Shower Employment Status Retired Additional Social History Comment Pt's daughter states looking into possibly assisted living for pt. M2 OT-IP Current Condition Start: 08/02/23 14:17 Freq: Status: Active Protocol: Document 08/02/23 14:17 [facility] (Rec: 08/02/23 14:41 [facility] [id number]) Occupational Therapy Current Condition Current Condition Evaluation Date 08/02/23 Treatment Diagnosis History of frequent falls, generalized weakness. M3 OT- IP Subjective and Pain Start: 08/02/23 14:17 Freq: Status: Active Protocol: Document 08/02/23 14:17 [facility] (Rec: 08/02/23 14:41 [facility] [id number]) OT- Subjective Occupational Therapy Visit Type Type Initial Evaluation Visit Start Time 13:35 Visit Stop Time 14:16 Occupational Therapy Visit Comments Patient Comments Pt needing to use the BSC. Patient/Caregiver Goals TO get better. OT Pain Assessment Pain When Pain Assessed At Rest Pain Present Pain Present Denied Pain M4 OT- IP ADL's Start: 08/02/23 14:17 Freq: Status: Active Protocol: Document 08/02/23 14:17 [facility] (Rec: 08/02/23 14:41 [facility] [id number]) OT [id number] Comments OT Self-Feeding Comments Pt not hungry but open to having a protein drink, which nurse states ok for pt to have . OT ADL-Grooming Comments OT Grooming Comments Not performed. OT ADL-Oral Care Comments Oral Care Comments NOt performed. OT ADL-Dressing General Eval Lower Body Dressing Ability Total Assistance Areas Needing Assistance Underpants/Brief,Socks OT ADL-Toileting General Evaluation Toileting Ability Total Assistance Areas Needing Assistance Manage Clothing,Perform Perineal Hygiene Comments OT Toileting Comments Pt unable to reach appropriately for hygiene needs and needing assist from nursing and therapist. Educated pt of options of toilet paper aid, bidet, or at this time will need assist for completeness. OT ADL-Bathing Comments OT Bathing Comments Not performed, pt will benefit from trying to shower tomorrow. Pt states has a shower aid that assists her. Suggested a tub transfer bench and possibly a transfer pole for home use. M5 OT- IP IADL's Start: 08/02/23 14:17 Freq: Status: Active Protocol: Document 08/02/23 14:17 [facility] (Rec: 08/02/23 14:41 [facility] [id number]) OT-Instrumental Activities of Daily Living Deficits IADL Deficits Identified Deficits Home Safety Awareness Awareness of Need for Assistance at Home Good Awareness Home Safety Comments At this time pt will need supervision for safety awareness and assist for especially hygiene needs. Medication Management Medication Management Comments Pt uses pill organizers but will benefit from assist. Money Management Money Management Caregiver Provides Assistance Meal Preparation Meal Preparation Caregiver Provides Assist Stock House Worker Stock House Worker Caregiver Provides Assist Driving Driving Caregiver Provides Assist M6 OT- IP Functional Cognition Start: 08/02/23 14:17 Freq: Status: Active Protocol: Document 08/02/23 14:17 [facility] (Rec: 08/02/23 14:41 [facility] [id number]) Cognitive Factors Limiting Selfcare Function Cognitive Ability Level of Alertness Alert Patient Orientation Name,Place,Situation Attention Span Ability Capable of Focused Attention, Capable of Sustained Attention Ability to Follow Commands Able to Follow One Step Commands Memory Description Short Term Impaired Cognitive Comments Cognitive Assessment Comments Pt needing repetitive cues to follow. Pt's daughter states have noticed progressive decline in her memory. Pt's daughter states that pt is highly susceptible to UTI as well. Pt will benefit from cognitive assessment. OT- Vision and Hearing OT- Hearing Assessment OT- Hearing Assessment WFL OT- Vision Assessment Visual Acuity Glasses For Reading Visual Attentiveness WFL Occular Pursuits WFL Vision Assessment Comments Pt able to read the clock accurately. M7 OT- IP Mobility and Balance Start: 08/02/23 14:17 Freq: Status: Active Protocol: Document 08/02/23 14:17 [facility] (Rec: 08/02/23 14:41 [facility] [id number]) OT- Bed Mobility Assessment Rolling Type of Rolling Bilateral Level of Assistance Moderate Assistance Sit to Supine Sit to Supine Assist Moderate Assistance,2 Person Assistance OT-Transfer Assessment Sit to and From Stand Sit to and from Stand Moderate Assistance,1 Person Assistance Transfers Transfer Ability Contact Guard Assistance Technique Transfer Destination Bed,Bedside Commode,Chair Transfer Technique Stand Step Pivot Devices Transfer Assistive Devices Gait Belt,Front Wheeled Walker Comments Mobility Comments MODA to stand from lower surfaces and vc to push up on the armrests of the recliner or BSC. Once on the feet CGA with FWW. OT- Balance Assessment Sitting Balance and Reactions Static Sitting Balance Ability Good Dynamic Sitting Balance Ability Fair Standing Balance and Reactions Static Standing Balance Ability Fair Dynamic Standing Balance Ability Fair M8 OT- IP Objective Assessments Start: 08/02/23 14:17 Freq: Status: Active Protocol: Document 08/02/23 14:17 [facility] (Rec: 08/02/23 14:41 [facility] [id number]) OT Gross Range of Motion Upper Extremity Range of Motion Assessment Within Functional Limits OT Strength Comments Strength Comments 4/5 to 4-/5 from proximal to distal OT- Coordination Assessment Upper Extremity Finger to Nose Test Within Functional Limits OT-Muscle Tone Assessment Comments Muscle Tone Comments Pt has tremor in her hands which result in FMS difficulties. OT Sensation Assessment Comments Summary Comments Intact for light touch, pt has tremors in her hands. M9 OT- IP Assessment and Plan Start: 08/02/23 14:17 Freq: Status: Active Protocol: Document 08/02/23 14:17 [facility] (Rec: 08/02/23 14:41 [facility] [id number]) OT Summary Assessment and Plan Potential Rehabilitation Potential Fair+ Analytic Complexity at Evaluation Moderate Summary OT Impairments Strength,Balance,Coordination, Functional Cognition, Functional Mobility,Self- Feeding,Grooming,Dressing, Toileting,Bathing,Toilet Transfers,Shower Transfers, Activity Tolerance Progress Towards Goals Slow Progress due to Medical Issues,Slow Progress due to Activity Tolerance,Slow Progress due to Cognition Assessment Summary Pt mod complexity and here due to frequent falls, weakness, and per pt feels just never fully recovered from having COVID in June 2023. Pt will benefit from skilled rehab to maximize her level of independence, go over equipment needs to maximize her safety with ADL and mobility needs, and after rehab pt will continue to benefit from assist at home. Pt's daughter looking into possible assisted living option for the pt. Goals Self-Feeding Goal Independent Grooming Goal Independent Dressing Goal Minimal Assistance Toileting Goal Minimal Assistance Bathing Goal Minimal Assistance Toilet Transfer Goal Independent Shower Transfer Goal Independent Days to Meet Goals 15 Frequency of Treatment Frequency Of Treatment Once a Day Treatment Plan OT Treatment Plan ADL Training,Functional Cognition Training,Functional Mobility,Patient/Family Education,Discharge Planning Other Treatment Recommendations and Next SLUMS and /or shower Treatment Focus Discharge Recommendations OT Discharge Recommendations SNF Rehab Transportation Needs at Discharge Wheelchair/Cabulance
[2023-08-02 14:31] LABS: Appearance Urine UA CLEAR; Bilirubin Urine UA NEGATIVE (NEGATIVE); Color Urine UA YELLOW; Glucose Urine UA 3+ g/dL (Negative); Ketones Urine UA NEGATIVE (NEGATIVE); Leukocyte Esterase Urine UA NEGATIVE (NEGATIVE); Nitrite Urine UA NEGATIVE (Negative); Occult Blood Urine UA NEGATIVE (Negative); Protein Urine UA NEGATIVE (Negative); Urobilinogen Urine UA 0.2 E.U./dL (0.2)
[2023-08-02 14:37] LABS: Bacteria Urine None Seen; Culture Indicated Urine Cult Not Indicated; RBC Urine 0-1/HPF (0-5/HPF); Squamous Epithelial Cell Urine 0-1 /HPF (0-5/HPF); Urine Volume 10mL (spun); WBC Urine None Seen (0-5/HPF)
[2023-08-02] MEDS: OLANZapine 2.5 MG TABLET 5 MG PO (20:50)
[2023-08-02] MEDS: cloNIDine 0.1 MG TABLET 0.2 MG PO (20:50)
[2023-08-02] MEDS: DIVALPROEX ER 250 MG TAB 1250 MG PO (20:51)
[2023-08-02] MEDS: GABAPENTIN 300 MG CAPSULE 600 MG PO (20:51)
[2023-08-03] VITALS (7 sets, daily range): BP systolic 114–123; BP diastolic 51–59; PULSE 74–90; RESP 16–19; TEMP 36.3–36.6; O2SAT 91–93
[2023-08-03] MEDS: LEVOTHYROXINE 50 MCG TABLET 150 MCG PO (06:08)
--- NOTE | 2023-08-03 07:59 | P.PN_ITS ---
Subjective Subjective Date Patient Seen: 08/03/23 Time Patient Seen: 10:20 Interval history: Patient seen and evaluated this morning. She is doing well. She says her legs feel heavy this morning she is anticipating getting out of bed had some stomach troubles last night. Relieved with a bowel movement. She is eating well. Still quite weak. Patient discussion today about to continue to work with physical therapy occupational therapy and may need detention for temporary placement so patient can build strength and go back home. Echocardiogram and lab results were discussed with patient today. Exam Vital Signs (past 8 hours): - 08/03/23 00:00 08/03/23 04:00 08/03/23 07:30 Temperature 97.3 F L 97.7 F Pulse Rate 77 75 74 Respiratory Rate 18 16 Blood Pressure 114/51 L 114/51 L 118/54 L Pulse Oximetry 93 92 Oxygen Flow Rate 0 0 Oxygen Delivery Method Room Air Oxygen Flow Rate 0 Narrative Exam Narrative: Gen.: Alert and oriented x3 no apparent distress. HEENT: NCAT PERRLA tympanic membranes are clear nares are patent oral mucosa is moist no tonsillar hypertrophy neck is supple without lymphadenopathy no thyroid enlargement. Cardio: S1-S2 regular rate and rhythm no murmurs appreciated. Respiratory: Lungs are clear to auscultation no wheezes or crackles normal respiratory effort. Abdomen: Soft nontender no rebound or guarding no liver spleen enlargement no appreciable hernias Extremities: Full range of motion generalized weakness with some edema tender to the touch Neurologic: Grossly intact. Objective Labs 08/02/23 03:00 08/03/23 08:40 Labs: Laboratory Results - last 24 hr 08/02/23 13:44 Urine Color Yellow Urine Appearance Clear Urine pH 6.0 Ur Specific Thornton 1.020 Urine Protein Negative Urine Glucose (UA) 3+ H Urine Ketones Negative Urine Occult Blood Negative Urine Nitrate Negative Urine Bilirubin Negative Urine Urobilinogen 0.2 Ur Leukocyte Esterase Negative Urine RBC 0-1/hpf Urine WBC None seen Ur Squamous Epith Cells 0-1 /hpf Urine Bacteria None seen Ur Culture Indicated? Cult not indicated Vol Urine Centrifuged 10ml (spun) [facility] Medical History Bipolar 1 disorder, depressed, partial remission Psychosis COVID-19 Bipolar 1 disorder, mixed, full remission Hyperlipidemia DM type 2 (diabetes mellitus, type 2) Bipolar I disorder, most recent episode depressed, severe without psychotic features Bipolar disorder (1989) Fractures (2007) Foot pain (~2002) Ankle pain (2007) Peripheral neuropathy (2013) Hayfever (~1989) Sleep apnea (08/2015) Hypertension Hypothyroidism Urinary incontinence Cataract (2011) Chicken pox Measles CTS (carpal tunnel syndrome) (1987) RLS (restless legs syndrome) (1999) Anxiety (1994) Depression (1961) Surgical History Anesthesia complication History of surgery (04/2008) History of carpal tunnel repair (~1997) Family History Child Age: 51 Arthritis Mother Heart disease Family history of fraternal twins Family history of identical twins Levin gestation with first Social History marital status: number of children: 2 household members: children lives independently: Yes caregiver/support person: No housing: house pets and animals: No education level: high school occupational status: unemployed leisure activities: reading and volunteer work other: walk,garden,visit friends,christian,word puzzles seatbelt use: always water heater temp set < 120 deg: Yes working smoke detector in home: Yes fire extinguisher in home: Yes carbon monox detector in home: Yes Smoking Status: Never smoker second hand exposure: No alcohol intake: current substance use type: does not use during the past year weight has: other well-balanced diet: rarely or never daily servings fruits/ve-1 caffeine: Yes eating out: 1-3 times/week frequency: 3-4 times per week duration: 15-30 minutes/day Assessment & Plan Assessment and plan (1) Generalized weakness: Status: Acute (2) Hypoxia: Status: Acute Plan Adult failure to thrive Patient with global lysed weakness history of recurrent falls and failure to thrive with multiple emergency department visits in the last few weeks admitted for further evaluation and workup. Laboratory tests studies x-rays were reviewed. Echocardiogram results were reviewed today which shows no significant heart failure and or valvular heart disease. Was given a little bit of diuresis yesterday unsure whether this has been helpful or not but patient does not appear to be a little bit fluid overloaded. Will provide oral Lasix. Continue with physical therapy and occupational therapy. Acute hypoxic respiratory failure. Patient had hypoxia on admission to the hospital. Chest x-ray echocardiogram reviewed. No signs of PE. History of sleep apnea. Continue with oxygen as needed. Work with physical therapy. Lower extremity edema still present. Convert from IV Lasix to oral Lasix 40 mg once daily. Monitor closely electrolytes replace potassium as needed. Hypomagnesemia. Oral magnesium replacement provided today. Type 2 diabetes. Continue with metformin home medication and insulin sliding scale coverage with diabetic diet. Bipolar disorder. Chronic and stable. Without acute exacerbation continue with current outpatient psychiatric medications which include Depakote and Zyprexa Hypothyroidism. Recent TSH is normal continue with thyroid medication. Gout without current flare. Hypertension. Blood pressure is well controlled continue with lisinopril. Monitor closely for blood pressure elevation. Urinary incontinence oxybutynin will be continued. Plan today physical therapy occupational therapy discussion with case management patient would benefit from detention rehabilitation. Quality VTE Deep Vein Thrombosis/Pulmonary Embolism Present on Admission: No IH PROFEE Charge codes Subsequent inpatient/observation care: [id number]
[2023-08-03] MEDS: ATORVASTATIN 20 MG TABLET 40 MG PO (08:30)
[2023-08-03] MEDS: allopurinoL 100 MG TABLET 300 MG PO (08:30)
[2023-08-03] MEDS: INSULIN LISPRO 100 UNIT/ML 3ML VIAL SUBCUT ×4 (08:32→21:20)
[2023-08-03] MEDS: METFORMIN HCL 500 MG TABLET 1000 MG PO ×2 (08:32→21:20)
[2023-08-03] MEDS: OXYBUTYNIN 5 MG TABLET PO ×2 (08:32→21:17)
[2023-08-03] MEDS: GABAPENTIN 300 MG CAPSULE PO (08:32)
[2023-08-03] MEDS: ENOXAPARIN 40 MG/0.4 ML SYRINGE SUBCUT ×2 (08:34→21:23)
[2023-08-03 09:05] LABS: BUN Creatinine Ratio 26.9 (6-22); Blood Urea Nitrogen 25 mg/dL (7-17); Calcium 9.5 mg/dL (8.4-10.2); Carbon Dioxide 29 mmol/L (22-32); Chloride 105 mmol/L (98-107); Estimated Glomerular Filt Rate > 60 mL/min (>60); Glucose 182 mg/dL (80-110); HEMOLYSIS < 15 (0-50); Magnesium 1.5 mg/dL (1.6-2.3); Sodium 137 mmol/L (137-145)
--- NOTE | 2023-08-03 10:27 | OT.IP.TRT ---
Current Diagnoses Hypothyroidism, unspecified (08/02/23) Type 2 diabetes mellitus with hyperglycemia (08/02/23) Hyperlipidemia, unspecified (08/02/23) Bipolar disorder, in partial remission, most recent episode depressed (08/02/23) Essential (primary) hypertension (08/02/23) Gout, unspecified (08/02/23) Hypoxemia (08/02/23) Repeated falls (08/02/23) Weakness (08/02/23) Adult failure to thrive (08/02/23) Occupational Therapy Treatment Note M2 OT-IP Current Condition Start: 08/02/23 14:17 Freq: Status: Active Protocol: Document 08/02/23 14:17 [facility] (Rec: 08/02/23 14:41 [facility] [id number]) Occupational Therapy Current Condition Current Condition Evaluation Date 08/02/23 Treatment Diagnosis History of frequent falls, generalized weakness. M3 OT- IP Subjective and Pain Start: 08/02/23 14:17 Freq: Status: Active Protocol: Document 08/03/23 10:28 CGR (Rec: 08/03/23 10:44 CGR [id number]) OT- Subjective Occupational Therapy Visit Type Type Treatment Note Visit Start Time 09:57 Visit Stop Time 10:27 OT Pain Assessment Pain When Pain Assessed During Mobility Pain Present Pain Present Pain Reported Location Left Hip Scale Used did not rate Pain Behaviors Guarding Management Techniques Modification of Treatment,Re- positioning M4 OT- IP ADL's Start: 08/02/23 14:17 Freq: Status: Active Protocol: Document 08/03/23 10:28 CGR (Rec: 08/03/23 10:44 CGR [id number]) OT [id number] General Evaluation Self-Feeding Ability Independent Comments OT Self-Feeding Comments Pt eating breakfast when OT first entered and requested that OT return later. OT ADL-Grooming General Evaluation Grooming Ability Standby Assistance Areas Needing Assistance Face Washing Comments OT Grooming Comments seated in chair with set up OT ADL-Oral Care General Eval Oral Care Ability Standby Assistance Areas of Assistance Brushing Teeth Comments Oral Care Comments seated in chair with set up OT ADL-Dressing General Eval Lower Body Dressing Ability Total Assistance Areas Needing Assistance Underpants/Brief,Socks Comments OT Dressing Comments Pt needed total assist for donning socks and clean brief OT ADL-Toileting General Evaluation Toileting Ability Moderate Assistance Areas Needing Assistance Manage Clothing Comments OT Toileting Comments Pt stated need for BM but was unable to void OT ADL-Bathing Comments OT Bathing Comments not performed. Pt with low energy and unlikely to be able to perform at this time M5 OT- IP IADL's Start: 08/02/23 14:17 Freq: Status: Active Protocol: Document 08/02/23 14:17 [facility] (Rec: 08/02/23 14:41 [facility] [id number]) OT-Instrumental Activities of Daily Living Deficits IADL Deficits Identified Deficits Home Safety Awareness Awareness of Need for Assistance at Home Good Awareness Home Safety Comments At this time pt will need superivision for safety awareness and assist for especially hygiene needs. Medication Management Medication Management Comments Pt uses pill organizers but will benefit from assist. Money Management Money Management Caregiver Provides Assistance Meal Preparation Meal Preparation Caregiver Provides Assist Photographers' Model Photographers' Model Caregiver Provides Assist Driving Driving Caregiver Provides Assist M6 OT- IP Functional Cognition Start: 08/02/23 14:17 Freq: Status: Active Protocol: Document 08/02/23 14:17 [facility] (Rec: 08/02/23 14:41 [facility] [id number]) Cognitive Factors Limiting Selfcare Function Cognitive Ability Level of Alertness Alert Patient Orientation Name,Place,Situation Attention Span Ability Capable of Focused Attention, Capable of Sustained Attention Ability to Follow Commands Able to Follow One Step Commands Memory Description Short Term Impaired Cognitive Comments Cognitive Assessment Comments Pt needing repetitive cues to follow. Pt's daughter states have noticed progressive decline in her memory. Pt's daughter states that pt is highly susceptible to UTI as well. Pt will benefit from cognitive assessment. OT- Vision and Hearing OT- Hearing Assessment OT- Hearing Assessment WFL OT- Vision Assessment Visual Acuity Glasses For Reading Visual Attentiveness WFL Occular Pursuits WFL Vision Assessment Comments Pt able to read the clock accurately. M7 OT- IP Mobility and Balance Start: 08/02/23 14:17 Freq: Status: Active Protocol: Document 08/03/23 10:28 CGR (Rec: 08/03/23 10:44 CGR [id number]) OT- Bed Mobility Assessment Supine to Sit Supine to Sit Assist Maximum Assistance,1 Person Assistance,Head of Bed Elevated,Bedrails Scooting Scooting to Edge of Bed Maximum Assistance,1 Person Assistance,Head of Bed Elevated,Bedrails OT-Transfer Assessment Sit to and From Stand Sit to and from Stand Minimal Assistance,Moderate Assistance Transfers Transfer Ability Minimal Assistance Technique Transfer Destination Bed,Bedside Commode,Chair Transfer Technique Stand Step Pivot Devices Transfer Assistive Devices Gait Belt,Front Wheeled Walker Comments Mobility Comments Pt initially transfered to the chair then stated the need to have a BM. Pt trasnfered to [facility] but was unable to void and returned to chair for ADLs. OT- Balance Assessment Sitting Balance and Reactions Static Sitting Balance Ability Fair Dynamic Sitting Balance Ability Poor M8 OT- IP Objective Assessments Start: 08/02/23 14:17 Freq: Status: Active Protocol: Document 08/02/23 14:17 CCC (Rec: 08/02/23 14:41 CCC [id number]) OT Gross Range of Motion Upper Extremity Range of Motion Assessment Within Functional Limits OT Strength Comments Strength Comments 4/5 to 4-/5 from proximal to distal OT- Coordination Assessment Upper Extremity Finger to Nose Test Within Functional Limits OT-Muscle Tone Assessment Comments Muscle Tone Comments Pt has tremor in her hands which result in FMS difficulties. OT Sensation Assessment Comments Summary Comments Intact for light touch, pt has tremors in her hands. M9 OT- IP Assessment and Plan Start: 08/02/23 14:17 Freq: Status: Active Protocol: Document 08/03/23 10:28 CGR (Rec: 08/03/23 10:44 CGR [id number]) OT Summary Assessment and Plan Potential Rehabilitation Potential Fair Analytic Complexity at Evaluation Moderate Summary OT Impairments Strength,Balance,Coordination, Functional Cognition, Functional Mobility,Self- Feeding,Grooming,Dressing, Toileting,Bathing,Toilet Transfers,Shower Transfers, Activity Tolerance Progress Towards Goals Slow Progress due to Medical Issues,Slow Progress due to Activity Tolerance,Slow Progress due to Cognition Assessment Summary Pt mod complexity and here due to frequent falls, weakness, and per pt feels just never fully recovered from having COVID in June 2023. Pt will benefit from skilled rehab to maximize her level of independence, go over equipment needs to maximize her safety with ADL and mobility needs, and after rehab pt will continue to benefit from assist at home. Pt's daughter looking into possible assisted living option for the pt. On this date, pt presents with low energy but was participatory with therapy. Pt would benefit from continued therapy services to address declines. Goals Self-Feeding Goal Independent Grooming Goal Independent Dressing Goal Minimal Assistance Toileting Goal Minimal Assistance Bathing Goal Minimal Assistance Toilet Transfer Goal Independent Shower Transfer Goal Independent Days to Meet Goals 15 Frequency of Treatment Frequency Of Treatment Once a Day Treatment Plan OT Treatment Plan ADL Training,Functional Cognition Training,Functional Mobility,Patient/Family Education,Discharge Planning Other Treatment Recommendations and Next SLUMS and /or shower Treatment Focus Discharge Recommendations OT Discharge Recommendations SNF Rehab Transportation Needs at Discharge Wheelchair/Cabulance
--- NOTE | 2023-08-03 11:02 | PT.IPTN ---
Current Diagnoses Hypothyroidism, unspecified (08/02/23) Type 2 diabetes mellitus with hyperglycemia (08/02/23) Hyperlipidemia, unspecified (08/02/23) Bipolar disorder, in partial remission, most recent episode depressed (08/02/23) Essential (primary) hypertension (08/02/23) Gout, unspecified (08/02/23) Hypoxemia (08/02/23) Repeated falls (08/02/23) Weakness (08/02/23) Adult failure to thrive (08/02/23) Physical Therapy Treatment Note M2 PT-IP Current Condition Start: 08/02/23 07:55 Freq: NEEDED Status: Active Protocol: Document 08/02/23 11:58 MB (Rec: 08/02/23 13:12 MB [id number]) Physical Therapy Current Condition Current Condition Evaluation Date 08/02/23 Treatment Diagnosis Weakness, falls, hypoxia M3 PT-IP Subjective Start: 08/02/23 07:55 Freq: NEEDED Status: Active Protocol: Document 08/03/23 11:29 TS (Rec: 08/03/23 11:37 TS [id number]) Subjective Physical Therapy Visit Type Type Treatment Note Visit Start Time 11:02 Visit Stop Time 11:28 Number of BORING MACHINE OPERATOR HELPER Visits 1 Physical Therapy Visit Comments Patient Comments Pt found resting in chair, reports feeling weak, is agreeable to PT. M4 PT-IP Mobility and Gait Start: 08/02/23 07:55 Freq: NEEDED Status: Active Protocol: Document 08/03/23 11:29 TS (Rec: 08/03/23 11:37 TS [id number]) PT-Transfer Assessment Sit to and From Stand Sit to and from Stand Minimal Assistance,Maximum Assistance,1 Person Assistance Equipment Transfer Assistive Device Gait Belt,Front Wheeled Walker Orthotic/Prosthetic Devices or Brace: No Comments Mobility Comments STS from chair MaxA x1, pt required cues for BUE support pushing from arms of chair and hip hinge. She ambulated in room ~20'CGA with FWW, pt takes short steps almost walking in place, required cues for larger steps and propelling FWW forward. She sat on EOB due to fatigue. STS from bed Teena with use of FWW , pt ambulated another ~10'CGA and sat back in chair. Pt was left in chair, all needs met. Gait Assessment Gait Gait Assistance Required: Minimum Assistance,1 Person Assist Distance (Feet) 30 Able to Maintain Weight Bearing Status Yes During Gait Assistive Devices Assistive Device Gait Belt,Front Wheeled Walker Orthotic/Prosthetic Devices or Brace: No Gait Deviations General Gait Pattern Antalgic,Decreased Stride Length,Decreased Feet Clearance,Flexed Trunk,Wide Based Gait Factors Limiting Gait Function Factors Limiting Gait Function Decreased Activity Tolerance, Decreased Strength,Difficulty Following Directions, Incoordination,Limited Range of Motion,Poor Balance,Poor Safety Awareness Comments Gait Comments See mobility comments PT-Balance Assessment Sitting Balance and Reactions Static Sitting Balance Ability Fair Dynamic Sitting Balance Ability Fair Standing Balance and Reactions Static Standing Balance Ability Fair Dynamic Standing Balance Ability Fair Device Used RW M5 PT-IP Objective Assessments Start: 08/02/23 07:55 Freq: NEEDED Status: Active Protocol: Document 08/02/23 11:58 MB (Rec: 08/02/23 13:12 MB [id number]) Orientation Orientation/Cognition Level of Alertness Alert Orientation Name,Age,Birthday,Place, Situation Language Function Ability No Deficits Noted Safety Awareness Decreased Safety Awareness Memory Description No Deficits Noted Gross Range of Motion Upper Extremity ROM Impairments Defer to OT Lower Extremity ROM Assessment Bilaterally Impaired Impairments Edema and decreased active movement of both legs Strength Comments Strength Comments Functionally, LEs are grossly 3/5 with mobility M6 PT-IP Treatment Start: 08/02/23 07:55 Freq: NEEDED Status: Active Protocol: Document 08/03/23 11:29 TS (Rec: 08/03/23 11:37 [id number]) Physical Therapy Treatment Education Education Provided Safety M7 PT-IP Assessment and Plan Start: 08/02/23 07:55 Freq: NEEDED Status: Active Protocol: Document 08/03/23 11:29 TS (Rec: 08/03/23 11:37 [id number]) PT Summary Assessment and Plan Potential Rehabilitation Potential Good Summary Impairments ROM,Strength,Balance,Bed Mobility,Transfers,Gait, Activity Tolerance Progress Towards Goals Slow Progress due to Activity Tolerance Assessment Summary Madhav is making some progress with her mobility but continues to be limited by weakness and poor activity tolerance. She is MaxA for STS from chair and Teena for STS from bed. She progressed her gait to ~30'CGA with FWW. She tends to take small steps and requires cues for larger steps and propelling FWW forward. She quickly fatigues with gait and requires rest breaks to recover. PT will continue to recommend SNF to improve activity tolerance and strength before safe d/c home. Goals Bed Mobility Goal Independent Transfer Goal Independent,Front Wheeled Walker Gait Goal Independent,Front Wheel Walker Gait Distance 50 Other Goals Pt will ascend and descend 3 steps to allow safe home entrance with use of LRAD and CGA. Days to Meet Goals 5 Frequency of Treatment Frequency Of Treatment Once a Day Treatment Plan Physical Therapy Treatment Plan Bed Mobility Training,Transfer Training,Gait Training, Therapeutic Exercise,Balance Retraining,Discharge Planning, Hot or Cold Pack,Neuromuscular Re-ed Other Recommendations and Next Treatment Marching in place, transfers, Focus sit<>stand, ambulation. Weight Bearing Status Weight Bearing Status Weight Bear as Tolerated Recommendations To Nursing Amount of Assist Needed 2 Person Assist Discharge Recommendations PT Discharge Recommendations SNF Rehab Transportation Needs at Discharge Wheelchair/Cabulance
--- NOTE | 2023-08-03 11:39 | CM.DPNOTE ---
DCP Cont Placed call to daughter Lynne P [phone] to review therapy recommendations for SNF and get SNF preference. Daughter agrees discharge to SNF is optimal and preference is based on who is in contract with patient's [facility] MCR. Lynne further states she will continue to discuss network operations analyst facility care with patient and with KEYSHA RAMIREZ. Discussed referral with Evon at [facility]; strictly speaking, [facility] is not in network with [facility] but they have gotten one time contracts in the past. Evon reports that [facility] has female Medicaid network operations analyst care beds available if patient's Medicaid is switched from in home KEYSHA care to facility care. Discussed referral with Kerri at [facility]; she accepts patient and will submit [employer] auth. Placed call to KEYSHA RAMIREZ is Lauren Vasques P [phone], updated with above information. Patient's annual assessment was in May. Lauren had been discussing re-assessment with daughter in case patient would qualify for more hours, date of reassessment not scheduled yet. Explained that [facility] has open LTC beds; Lauren is likely to skip the reassessment for more hours and begin to work on transitioning patient's benefit from in home to facility care if patient remains agreeable to this. Informed KEYSHA Aguilar CM, that patient may inevitably discharge home w/daughter and HH ([facility]) if SNF auth denied. Patient and family would benefit from Lauren's close follow up , Lauren agrees. Will keep Lauren updated with outcome of patient's dispo. Hospital Exempt PASRR completed, needs provider signature. CM team following closely for coordination of discharge plan. UR team have sent to EHR for secondary review of OBS vs INPT status. DEVORA
[2023-08-03] MEDS: MAGNESIUM CHLORIDE 64 MG TABLET 128 MG PO (14:00)
--- NOTE | 2023-08-03 14:09 | PC.NURSE ---
Patient denies pain and is resting comfortably up in her chair, she is watching a program on her ipad.
[2023-08-03] MEDS: cloNIDine 0.1 MG TABLET 0.2 MG PO (21:19)
[2023-08-03] MEDS: DIVALPROEX ER 250 MG TAB 1250 MG PO (21:19)
[2023-08-03] MEDS: GABAPENTIN 300 MG CAPSULE 600 MG PO (21:19)
[2023-08-03] MEDS: OLANZapine 2.5 MG TABLET 5 MG PO (21:20)
[2023-08-04] VITALS (7 sets, daily range): BP systolic 107–131; BP diastolic 54–70; PULSE 67–79; RESP 17–36; TEMP 35.7–36.8; O2SAT 91–95
[2023-08-04] MEDS: LEVOTHYROXINE 50 MCG TABLET 150 MCG PO (06:03)
[2023-08-04 06:06] LABS: Add Manual Diff / Slide Review NO; Basophils Absolute Auto 0 /uL (0-100); Basophils Percent Auto 0.5 % (0-2); Eosinophils Absolute Auto 200 /uL (0-450); Eosinophils Percent Auto 2.4 % (2-4); Hematocrit 32.9 % (36-46); Hemoglobin 11.2 g/dL (12.0-16.0); Lymphocytes Absolute Auto 3700 /uL (1100-4500); Lymphocytes Percent Auto 57.6 % (25-40); Mean Corpuscular HGB Conc 34.1 % (30-36); Mean Corpuscular Hemoglobin 33.9 PG (26-34); Mean Corpuscular Volume 99.4 fL (80-100); Monocytes Absolute Auto 500 /uL (0-900); Monocytes Percent Auto 8.2 % (3-14); Neutrophils Absolute Auto 2000 /uL (1500-7000); Neutrophils Percent Auto 31.3 % (50-75); Platelet Count 149 X10^3/uL (150-400); Red Blood Cell Count 3.31 X10^6/uL (4.0-5.2); Red Cell Distribution Width 15.5 % (11.6-14.8); White Blood Cell Count 6.5 X10^3/uL (4.5-11.0)
[2023-08-04 06:15] LABS: Magnesium 1.3 mg/dL (1.6-2.3)
[2023-08-04 06:17] LABS: BUN Creatinine Ratio 23.4 (6-22); Blood Urea Nitrogen 22 mg/dL (7-17); Calcium 9.3 mg/dL (8.4-10.2); Carbon Dioxide 27 mmol/L (22-32); Chloride 105 mmol/L (98-107); Estimated Glomerular Filt Rate > 60 mL/min (>60); Glucose 183 mg/dL (80-110); HEMOLYSIS < 15 (0-50); Potassium 4.9 mmol/L (3.4-5.1); Sodium 138 mmol/L (137-145)
[2023-08-04] MEDS: GABAPENTIN 300 MG CAPSULE PO (08:30)
[2023-08-04] MEDS: allopurinoL 100 MG TABLET 300 MG PO (08:30)
[2023-08-04] MEDS: METFORMIN HCL 500 MG TABLET 1000 MG PO ×2 (08:31→17:14)
[2023-08-04] MEDS: ATORVASTATIN 20 MG TABLET 40 MG PO (08:31)
[2023-08-04] MEDS: FUROSEMIDE 40 MG TABLET PO (08:31)
[2023-08-04] MEDS: OXYBUTYNIN 5 MG TABLET PO ×2 (08:31→21:19)
[2023-08-04] MEDS: MAGNESIUM SULFATE 2 GM/50 ML PIGGYBACK IV (08:32)
[2023-08-04] MEDS: ENOXAPARIN 40 MG/0.4 ML SYRINGE SUBCUT ×2 (08:33→21:19)
[2023-08-04] MEDS: INSULIN LISPRO 100 UNIT/ML 3ML VIAL SUBCUT ×3 (08:34→17:13)
--- NOTE | 2023-08-04 09:12 | PT.IPTN ---
Current Diagnoses Hypothyroidism, unspecified (08/02/23) Type 2 diabetes mellitus with hyperglycemia (08/02/23) Hyperlipidemia, unspecified (08/02/23) Bipolar disorder, in partial remission, most recent episode depressed (08/02/23) Essential (primary) hypertension (08/02/23) Gout, unspecified (08/02/23) Hypoxemia (08/02/23) Repeated falls (08/02/23) Weakness (08/02/23) Adult failure to thrive (08/02/23) Physical Therapy Treatment Note M2 PT-IP Current Condition Start: 08/02/23 07:55 Freq: NEEDED Status: Active Protocol: Document 08/02/23 11:58 MB (Rec: 08/02/23 13:12 MB [id number]) Physical Therapy Current Condition Current Condition Evaluation Date 08/02/23 Treatment Diagnosis Weakness, falls, hypoxia M3 PT-IP Subjective Start: 08/02/23 07:55 Freq: NEEDED Status: Active Protocol: Document 08/04/23 10:27 TS (Rec: 08/04/23 10:36 TS [id number]) Subjective Physical Therapy Visit Type Type Treatment Note Visit Start Time 09:12 Visit Stop Time 09:45 Number of MECHANOTHERAPIST Visits 2 Physical Therapy Visit Comments Patient Comments Pt found resting in bed, is agreeable to PT. M4 PT-IP Mobility and Gait Start: 08/02/23 07:55 Freq: NEEDED Status: Active Protocol: Document 08/04/23 10:27 TS (Rec: 08/04/23 10:36 TS [id number]) PT-Bed Mobility Assessment Supine to Sit Supine to Sit Moderate Assistance,1 Person Assistance Scooting Scooting to Edge of Bed Dependent PT-Transfer Assessment Sit to and From Stand Sit to and from Stand Minimal Assistance,Maximum Assistance,1 Person Assistance Equipment Transfer Assistive Device Gait Belt,Front Wheeled Walker Orthotic/Prosthetic Devices or Brace: No Transfers Transfer Destination Chair Transfer Technique Stand Step Pivot Transfer Ability Level of Assist Minimal Assistance,1 Person Assistance Comments Mobility Comments Supine to sit ModA for uprighting trunk and BLE assist to EOB, pt required cues for use of handrails. She is dependent for scooting to EOB, pt tends to have posterior LOB with scooting. STS from bed Teena with use of FWW, pt is incontinent of urine. She performed stand step pivot to chair Teena with FWW. Nursing in room to assist with brief. MaxA x1 for STS from chair for donning of brief. Pt was left in chair, all needs met. Gait Assessment Gait Gait Assistance Required: Minimum Assistance,1 Person Assist Distance (Feet) 5 Able to Maintain Weight Bearing Status Yes During Gait Assistive Devices Assistive Device Gait Belt,Front Wheeled Walker Orthotic/Prosthetic Devices or Brace: No Gait Deviations General Gait Pattern Antalgic,Decreased Stride Length,Decreased Feet Clearance,Flexed Trunk,Wide Based Gait Factors Limiting Gait Function Factors Limiting Gait Function Decreased Activity Tolerance, Decreased Strength,Difficulty Following Directions, Incoordination,Limited Range of Motion,Poor Balance,Poor Safety Awareness Comments Gait Comments See mobility comments PT-Balance Assessment Sitting Balance and Reactions Static Sitting Balance Ability Fair Dynamic Sitting Balance Ability Fair Standing Balance and Reactions Static Standing Balance Ability Fair Dynamic Standing Balance Ability Fair Device Used RW M5 PT-IP Objective Assessments Start: 08/02/23 07:55 Freq: NEEDED Status: Active Protocol: Document 08/02/23 11:58 MB (Rec: 08/02/23 13:12 MB [id number]) Orientation Orientation/Cognition Level of Alertness Alert Orientation Name,Age,Birthday,Place, Situation Language Function Ability No Deficits Noted Safety Awareness Decreased Safety Awareness Memory Description No Deficits Noted Gross Range of Motion Upper Extremity ROM Impairments Defer to OT Lower Extremity ROM Assessment Bilaterally Impaired Impairments Edema and decreased active movement of both legs Strength Comments Strength Comments Functionally, LEs are grossly 3/5 with mobility M6 PT-IP Treatment Start: 08/02/23 07:55 Freq: NEEDED Status: Active Protocol: Document 08/04/23 10:27 TS (Rec: 08/04/23 10:36 [id number]) Physical Therapy Treatment Education Education Provided Safety M7 PT-IP Assessment and Plan Start: 08/02/23 07:55 Freq: NEEDED Status: Active Protocol: Document 08/04/23 10:27 TS (Rec: 08/04/23 10:36 [id number]) PT Summary Assessment and Plan Potential Rehabilitation Potential Good Summary Impairments ROM,Strength,Balance,Bed Mobility,Transfers,Gait, Activity Tolerance Progress Towards Goals Slow Progress due to Activity Tolerance Assessment Summary Madhav continues to make slow progress with her mobility. She is ModA x1 with HOB elevated for sitting up to EOB . She continues to be Teena for STS from bed and MaxA from lower surface of chair. She continues to ambulate short distances in room and transfers to chair. PT is recommending Home 24/7 vs SNF. Pt does not currently have 24 /7 at home and would require SNF to improve strength, functional mobility and activity tolerance prior to d/ c home. Goals Bed Mobility Goal Independent Transfer Goal Independent,Front Wheeled Walker Gait Goal Independent,Front Wheel Walker Gait Distance 50 Other Goals Pt will ascend and descend 3 steps to allow safe home entrance with use of LRAD and CGA. Days to Meet Goals 5 Frequency of Treatment Frequency Of Treatment Once a Day Treatment Plan Physical Therapy Treatment Plan Bed Mobility Training,Transfer Training,Gait Training, Therapeutic Exercise,Balance Retraining,Discharge Planning, Hot or Cold Pack,Neuromuscular Re-ed Weight Bearing Status Weight Bearing Status Weight Bear as Tolerated Recommendations To Nursing Amount of Assist Needed 1 Person Assist Discharge Recommendations PT Discharge Recommendations Home with 24/7 Assist Available,SNF Rehab,Home vs SNF Transportation Needs at Discharge Private Vehicle,Wheelchair/ Cabulance
--- NOTE | 2023-08-04 14:01 | CM.DPNOTE ---
DCP Cont Discussed this case with CODEY Guy this morning; patient remains below her baseline and SNF continues to be recommended. Patient remains OBS although considered to be a readmission risk at this time if discharged home today. Therapy team recommending 24/7 assist if patient is discharged home which is not available as daughter Lynne works realtime court reporter. [facility] working on this auth through [employer], it is likely there would be no determination on SNF auth until Sunday. If patient does inevitably discharge home, CM team can place call to Pending [facility] to [facility] for resumption of care, collaborate with KEYSHA Osuna [phone] and alert [facility] marshmallow machine worker Dain Cuevas that patient is returning home. DEVORA
--- NOTE | 2023-08-04 18:05 | P.PN_ITS ---
Subjective Subjective Date Patient Seen: 08/04/23 Time Patient Seen: 18:05 Interval history: Patient had unremarkable night. Seen in [facility] for Dr. Corcoran Patient has no complaints. She feels her breathing is better. She is tolerating p.o. without any difficulty. Reviewed chart and workup thus far. Patient denies chest pain or shortness of breath Exam Vital Signs (past 8 hours): - 08/04/23 12:00 08/04/23 16:00 Temperature 96.8 F L 96.5 F L Pulse Rate 71 67 Respiratory Rate 32 H 28 H Blood Pressure 131/61 124/56 L Pulse Oximetry 93 95 Oxygen Flow Rate 0 0 Oxygen Delivery Method Room Air Oxygen Flow Rate 0 Narrative Exam Narrative: Patient is alert and oriented x3 cooperative lying comfortably in hospital bed. HEENT is unremarkable Neck: Supple Chest: Clear to auscultation without wheezes rhonchi or crackles Cor: Regular rate and rhythm with distant S1-S2 Abdomen: Positive bowel sounds, soft, nontender Extremities: Trace to 1+ edema, nonpitting Objective Labs 08/04/23 05:00 08/04/23 05:00 Labs: Laboratory Results - last 24 hr 08/04/23 05:00 WBC 6.5 RBC 3.31 L Hgb 11.2 L Hct 32.9 L MCV 99.4 MCH 33.9 MCHC 34.1 RDW 15.5 H Plt Count 149 L Neut % (Auto) 31.3 L Lymph % (Auto) 57.6 H [place] % (Auto) 8.2 Eos % (Auto) 2.4 Baso % (Auto) 0.5 Neut # (Auto) 2000 Lymph # (Auto) 3700 [place] # (Auto) 500 Eos # (Auto) 200 Baso # (Auto) 0 Sodium 138 Potassium 4.9 Chloride 105 Carbon Dioxide 27 BUN 22 H Creatinine 0.94 Estimated GFR > 60 BUN/Creatinine Ratio 23.4 H Glucose 183 H Calcium 9.3 Magnesium 1.3 L PFSH Medical History Bipolar 1 disorder, depressed, partial remission Psychosis COVID-19 Bipolar 1 disorder, mixed, full remission Hyperlipidemia DM type 2 (diabetes mellitus, type 2) Bipolar I disorder, most recent episode depressed, severe without psychotic features Bipolar disorder (1989) Fractures (2007) Foot pain (~2002) Ankle pain (2007) Peripheral neuropathy (2013) Hayfever (~1989) Sleep apnea (08/2015) Hypertension Hypothyroidism Urinary incontinence Cataract (2011) Chicken pox Measles CTS (carpal tunnel syndrome) (1987) RLS (restless legs syndrome) (1999) Anxiety (1994) Depression (1961) Surgical History Anesthesia complication History of surgery (04/2008) History of carpal tunnel repair (~1997) Family History Child Age: 51 Arthritis Mother Heart disease Family history of fraternal twins Family history of identical twins Levin gestation with first Social History marital status: number of children: 2 household members: children lives independently: Yes caregiver/support person: No housing: house pets and animals: No education level: high school occupational status: unemployed leisure activities: reading and volunteer work other: walk,garden,visit friends,confucianist,word puzzles seatbelt use: always water heater temp set < 120 deg: Yes working smoke detector in home: Yes fire extinguisher in home: Yes carbon monox detector in home: Yes Smoking Status: Never smoker second hand exposure: No alcohol intake: current substance use type: does not use during the past year weight has: other well-balanced diet: rarely or never daily servings fruits/ve-1 caffeine: Yes eating out: 1-3 times/week frequency: 3-4 times per week duration: 15-30 minutes/day Assessment & Plan Assessment & Plan narrative: Adult failure to thrive Patient with global lysed weakness history of recurrent falls and failure to thrive with multiple emergency department visits in the last few weeks admitted for further evaluation and workup. Laboratory tests studies x-rays were reviewed. Echocardiogram results shows no significant heart failure and or valvular heart disease. Was given a little bit of diuresis yesterday unsure whether this has been helpful or not but patient does not appear to be a little bit fluid overloaded. Patient stable on oral Lasix. Continue with physical therapy and occupational therapy. Acute hypoxic respiratory failure. Patient had hypoxia on admission to the hospital. Chest x-ray echocardiogram reviewed. No signs of PE. History of sleep apnea. Continue with oxygen as needed. Work with physical therapy. Lower extremity edema still present. Stable with conversion from IV to oral Lasix. Monitor closely electrolytes replace potassium as needed. Potassium remained stable. Will recheck tomorrow. Hypomagnesemia. Will recheck in a.m.. Type 2 diabetes. Continue with metformin home medication and insulin sliding scale coverage with diabetic diet. Bipolar disorder. Chronic and stable. Without acute exacerbation continue with current outpatient psychiatric medications which include Depakote and Zyprexa Hypothyroidism. Recent TSH is normal continue with thyroid medication. Gout without current flare. Hypertension. Blood pressure is well controlled continue with lisinopril. Monitor closely for blood pressure elevation. Urinary incontinence oxybutynin will be continued. 45 minutes spent with patient reviewing chart and discussing with physicians and nursing meeting with patient formulating a plan and documentation Quality VTE Deep Vein Thrombosis/Pulmonary Embolism Present on Admission: No
[2023-08-04] MEDS: cloNIDine 0.1 MG TABLET 0.2 MG PO (21:19)
[2023-08-04] MEDS: DIVALPROEX ER 250 MG TAB 1250 MG PO (21:19)
[2023-08-04] MEDS: GABAPENTIN 300 MG CAPSULE 600 MG PO (21:20)
[2023-08-04] MEDS: OLANZapine 2.5 MG TABLET 5 MG PO (21:20)
[2023-08-05] VITALS: BP 112/47; PULSE 72; RESP 18; TEMP 36; O2SAT 93
[2023-08-05 04:00] VITALS: BP 118/57; PULSE 65; RESP 19; TEMP 35.9; O2SAT 93
[2023-08-05 05:27] LABS: Add Manual Diff / Slide Review NO; Basophils Absolute Auto 0 /uL (0-100); Basophils Percent Auto 0.6 % (0-2); Eosinophils Absolute Auto 200 /uL (0-450); Eosinophils Percent Auto 2.9 % (2-4); Hematocrit 34.7 % (36-46); Hemoglobin 11.7 g/dL (12.0-16.0); Lymphocytes Absolute Auto 3700 /uL (1100-4500); Lymphocytes Percent Auto 55.5 % (25-40); Mean Corpuscular HGB Conc 33.8 % (30-36); Mean Corpuscular Hemoglobin 33.3 PG (26-34); Mean Corpuscular Volume 98.5 fL (80-100); Monocytes Absolute Auto 500 /uL (0-900); Monocytes Percent Auto 7.6 % (3-14); Neutrophils Absolute Auto 2200 /uL (1500-7000); Neutrophils Percent Auto 33.4 % (50-75); Platelet Count 152 X10^3/uL (150-400); Red Blood Cell Count 3.52 X10^6/uL (4.0-5.2); Red Cell Distribution Width 15.9 % (11.6-14.8); White Blood Cell Count 6.6 X10^3/uL (4.5-11.0)
[2023-08-05 05:44] LABS: BUN Creatinine Ratio 27.5 (6-22); Blood Urea Nitrogen 25 mg/dL (7-17); Calcium 9.5 mg/dL (8.4-10.2); Carbon Dioxide 29 mmol/L (22-32); Chloride 102 mmol/L (98-107); Estimated Glomerular Filt Rate > 60 mL/min (>60); Glucose 181 mg/dL (80-110); HEMOLYSIS < 15 (0-50); Magnesium 1.4 mg/dL (1.6-2.3); Sodium 136 mmol/L (137-145)
[2023-08-05] MEDS: LEVOTHYROXINE 50 MCG TABLET 150 MCG PO (06:29)
[2023-08-05 08:00] VITALS: BP 117/68; PULSE 66; RESP 20; TEMP 36.3; O2SAT 93
[2023-08-05] MEDS: ENOXAPARIN 40 MG/0.4 ML SYRINGE SUBCUT ×2 (08:48→21:01)
[2023-08-05] MEDS: GABAPENTIN 300 MG CAPSULE PO (08:48)
[2023-08-05] MEDS: METFORMIN HCL 500 MG TABLET 1000 MG PO ×2 (08:48→17:03)
[2023-08-05] MEDS: ATORVASTATIN 20 MG TABLET 40 MG PO (08:49)
[2023-08-05] MEDS: FUROSEMIDE 40 MG TABLET PO (08:49)
[2023-08-05] MEDS: OXYBUTYNIN 5 MG TABLET PO ×2 (08:49→21:01)
[2023-08-05] MEDS: MAGNESIUM SULFATE 2 GM/50 ML PIGGYBACK IV (08:49)
[2023-08-05] MEDS: allopurinoL 100 MG TABLET 300 MG PO (08:49)
[2023-08-05] MEDS: INSULIN LISPRO 100 UNIT/ML 3ML VIAL SUBCUT ×4 (08:51→21:00)
--- NOTE | 2023-08-05 11:38 | CM.DPNOTE ---
DCP Note MOLASSES AND CARAMEL OPERATOR reviewed EMR. Per previous CM notes, pending [facility] auth for dc to [facility] for rehab. MOLASSES AND CARAMEL OPERATOR spoke with Kerri from [facility]. Auth still pending. Hopeful for answer tomorrow. Per nursing staff, pt doing well medically. Plan: [facility] with [facility] auth (Need provider signature on PASRR) vs home with resumption of [facility]. if home with family and [facility], CM team will alert [employer] maintenance worker Dain Cuevas that patient is returning home. Either way, CM team will coordinate with KEYSHA Osuna [phone] about the DCP. RAFA Santos
--- NOTE | 2023-08-05 11:50 | PT.IPTN ---
Current Diagnoses Hypothyroidism, unspecified (08/02/23) Type 2 diabetes mellitus with hyperglycemia (08/02/23) Hyperlipidemia, unspecified (08/02/23) Bipolar disorder, in partial remission, most recent episode depressed (08/02/23) Essential (primary) hypertension (08/02/23) Gout, unspecified (08/02/23) Hypoxemia (08/02/23) Repeated falls (08/02/23) Weakness (08/02/23) Adult failure to thrive (08/02/23) Physical Therapy Treatment Note M2 PT-IP Current Condition Start: 08/02/23 07:55 Freq: NEEDED Status: Active Protocol: Document 08/02/23 11:58 MB (Rec: 08/02/23 13:12 MB [id number]) Physical Therapy Current Condition Current Condition Evaluation Date 08/02/23 Treatment Diagnosis Weakness, falls, hypoxia M3 PT-IP Subjective Start: 08/02/23 07:55 Freq: NEEDED Status: Active Protocol: Document 08/05/23 11:34 KS (Rec: 08/05/23 11:59 KS [id number]) Subjective Physical Therapy Visit Type Type Treatment Note Visit Start Time 11:34 Visit Stop Time 11:50 Number of CIGAR HEAD PUNCHER Visits 3 Physical Therapy Visit Comments Patient Comments Pt found resting in bed, is agreeable to PT. reports increased fatigue. M4 PT-IP Mobility and Gait Start: 08/02/23 07:55 Freq: NEEDED Status: Active Protocol: Document 08/05/23 11:34 KS (Rec: 08/05/23 11:59 KS [id number]) PT-Bed Mobility Assessment Supine to Sit Supine to Sit Moderate Assistance,1 Person Assistance Scooting Scooting to Edge of Bed Dependent PT-Transfer Assessment Sit to and From Stand Sit to and from Stand Minimal Assistance,1 Person Assistance,Use of Upper Extremities Equipment Transfer Assistive Device Gait Belt,Front Wheeled Walker Orthotic/Prosthetic Devices or Brace: No Transfers Transfer Destination Chair Transfer Technique ambulated Transfer Ability Level of Assist Minimal Assistance,1 Person Assistance Comments Mobility Comments Pt in bed upon arrival, reports increased fatigue due to lack of sleep. Needs motivation to participate today. Mod A and HOB elevated for sup<>sit. Dependent for scooting EOB. Min A for sit<> stand w/ FWW and trsanfer to chair. Pt able to perform ~[address] but then requests to sit due to fatigue. Reveiwed LE exercises including ankle pumps, quad sets, and glute sets. Left in chair w/ all needs in reach. Gait Assessment Gait Gait Assistance Required: Minimum Assistance,1 Person Assist Distance (Feet) 5 Able to Maintain Weight Bearing Status Yes During Gait Assistive Devices Assistive Device Gait Belt,Front Wheeled Walker Orthotic/Prosthetic Devices or Brace: No Gait Deviations General Gait Pattern Antalgic,Decreased Stride Length,Decreased Feet Clearance,Flexed Trunk,Wide Based Gait Factors Limiting Gait Function Factors Limiting Gait Function Decreased Activity Tolerance, Decreased Strength,Difficulty Following Directions, Incoordination,Limited Range of Motion,Poor Balance,Poor Safety Awareness Comments Gait Comments See mobility comments PT-Balance Assessment Sitting Balance and Reactions Static Sitting Balance Ability Fair Dynamic Sitting Balance Ability Fair Standing Balance and Reactions Static Standing Balance Ability Fair Dynamic Standing Balance Ability Fair Device Used FWW M5 PT-IP Objective Assessments Start: 08/02/23 07:55 Freq: NEEDED Status: Active Protocol: Document 08/02/23 11:58 MB (Rec: 08/02/23 13:12 MB [id number]) Orientation Orientation/Cognition Level of Alertness Alert Orientation Name,Age,Birthday,Place, Situation Language Function Ability No Deficits Noted Safety Awareness Decreased Safety Awareness Memory Description No Deficits Noted Gross Range of Motion Upper Extremity ROM Impairments Defer to OT Lower Extremity ROM Assessment Bilaterally Impaired Impairments Edema and decreased active movement of both legs Strength Comments Strength Comments Functionally, LEs are grossly 3/5 with mobility M6 PT-IP Treatment Start: 08/02/23 07:55 Freq: NEEDED Status: Active Protocol: Document 08/05/23 11:34 KS (Rec: 08/05/23 11:59 KS [id number]) Physical Therapy Treatment Education Education Provided Safety M7 PT-IP Assessment and Plan Start: 08/02/23 07:55 Freq: NEEDED Status: Active Protocol: Document 08/05/23 11:34 KS (Rec: 08/05/23 11:59 KS [id number]) PT Summary Assessment and Plan Potential Rehabilitation Potential Good Summary Impairments ROM,Strength,Balance,Bed Mobility,Transfers,Gait, Activity Tolerance Progress Towards Goals Slow Progress due to Activity Tolerance Assessment Summary Pt continues to be limited by low activity tolerance and weakness. Requires Mod A for bed mobility, MIn A for transfers. Only able to tolerate short distance ambulation and minimal marching in place. Quick approach to fatigue w/ exercises. PT is recommending Home 24/7 vs SNF. Pt does not currently have 24/7 at home and would require SNF to improve strength, functional mobility and activity tolerance prior to d/c home. Goals Bed Mobility Goal Independent Transfer Goal Independent,Front Wheeled Walker Gait Goal Independent,Front Wheel Walker Gait Distance 50 Other Goals Pt will ascend and descend 3 steps to allow safe home entrance with use of LRAD and CGA. Days to Meet Goals 5 Frequency of Treatment Frequency Of Treatment Once a Day Treatment Plan Physical Therapy Treatment Plan Bed Mobility Training,Transfer Training,Gait Training, Therapeutic Exercise,Balance Retraining,Discharge Planning, Hot or Cold Pack,Neuromuscular Re-ed Other Recommendations and Next Treatment Marching in place, transfers, Focus sit<>stand, ambulation. Weight Bearing Status Weight Bearing Status Weight Bear as Tolerated Recommendations To Nursing Amount of Assist Needed 1 Person Assist Discharge Recommendations PT Discharge Recommendations Home with 24/7 Assist Available,SNF Rehab,Home vs SNF Transportation Needs at Discharge Private Vehicle,Wheelchair/ Cabulance
[2023-08-05 11:55] VITALS: BP 116/20; PULSE 75; RESP 20; TEMP 35.9; O2SAT 95
--- NOTE | 2023-08-05 14:24 | PM.PN.1 ---
Subjective Subjective Date Patient Seen: 08/05/23 Time Patient Seen: 14:25 Interval history: Patient is lying comfortably in hospital bed. She states that she feels more tired today because she did not sleep well last night. She is come in with physical therapy and got up. She is making some progress. She denies any difficulty eating. She denies any shortness a breath or chest pain or palpitations lightheadedness or dizziness. She denies abdominal pain. No change in bowel or bladder function. Twelve point review of systems is otherwise negative. Exam Vital Signs (past 8 hours): - 08/05/23 08:00 08/05/23 11:55 Temperature 97.4 F L 96.7 F L Pulse Rate 66 75 Respiratory Rate 20 20 Blood Pressure 117/68 116/20 L Pulse Oximetry 93 95 Oxygen Flow Rate 0 0 Oxygen Delivery Method Room Air Oxygen Flow Rate 0 Narrative Exam Narrative: Alert and oriented x3 no apparent distress Lying comfortably in hospital bed Afebrile vital signs are stable HEENT: Unremarkable Neck: Supple without adenopathy Chest: Clear to auscultation with decreased breath sounds bibasilar Abdomen: Positive bowel sounds soft Extremities: Decreased edema pulses intact Objective Labs 08/05/23 04:55 08/05/23 04:55 Labs: Laboratory Results - last 24 hr 08/05/23 04:55 WBC 6.6 RBC 3.52 L Hgb 11.7 L Hct 34.7 L MCV 98.5 MCH 33.3 MCHC 33.8 RDW 15.9 H Plt Count 152 Neut % (Auto) 33.4 L Lymph % (Auto) 55.5 H [place] % (Auto) 7.6 Eos % (Auto) 2.9 Baso % (Auto) 0.6 Neut # (Auto) 2200 Lymph # (Auto) 3700 [place] # (Auto) 500 Eos # (Auto) 200 Baso # (Auto) 0 Sodium 136 L Potassium 5.0 Chloride 102 Carbon Dioxide 29 BUN 25 H Creatinine 0.91 Estimated GFR > 60 BUN/Creatinine Ratio 27.5 H Glucose 181 H Calcium 9.5 Magnesium 1.4 L PFSH Medical History Bipolar 1 disorder, depressed, partial remission Psychosis COVID-19 Bipolar 1 disorder, mixed, full remission Hyperlipidemia DM type 2 (diabetes mellitus, type 2) Bipolar I disorder, most recent episode depressed, severe without psychotic features Bipolar disorder (1989) Fractures (2007) Foot pain (~2002) Ankle pain (2007) Peripheral neuropathy (2013) Hayfever (~1989) Sleep apnea (08/2015) Hypertension Hypothyroidism Urinary incontinence Cataract (2011) Chicken pox Measles CTS (carpal tunnel syndrome) (1987) RLS (restless legs syndrome) (1999) Anxiety (1994) Depression (1961) Surgical History Anesthesia complication History of surgery (04/2008) History of carpal tunnel repair (~1997) Family History Child Age: 51 Arthritis Mother Heart disease Family history of fraternal twins Family history of identical twins Levin gestation with first Social History marital status: number of children: 2 household members: children lives independently: Yes caregiver/support person: No housing: house pets and animals: No education level: high school occupational status: unemployed leisure activities: reading and volunteer work other: walk,garden,visit friends,moravian,word puzzles seatbelt use: always water heater temp set < 120 deg: Yes working smoke detector in home: Yes fire extinguisher in home: Yes carbon monox detector in home: Yes Smoking Status: Never smoker second hand exposure: No alcohol intake: current substance use type: does not use during the past year weight has: other well-balanced diet: rarely or never daily servings fruits/ve-1 caffeine: Yes eating out: 1-3 times/week frequency: 3-4 times per week duration: 15-30 minutes/day Assessment & Plan Assessment & Plan narrative: Assessment & Plan narrative: 1. Adult failure to thrive Patient with global weakness history of recurrent falls and failure to thrive with multiple emergency department visits in the last few weeks admitted for further evaluation and workup. Laboratory tests studies x-rays were reviewed. Echocardiogram results shows no significant heart failure and or valvular heart disease. No further evidence of fluid overload. EF was normal on echo and patient is now off oxygen. I think we can stop continuous pulse oximetry.. Patient stable on oral Lasix. Continue with physical therapy and occupational therapy. 2. Acute hypoxic respiratory failure. Patient had hypoxia on admission to the hospital. Chest x-ray echocardiogram reviewed. Ejection fraction normal. No signs of PE. History of sleep apnea. No further hypoxemia. Will continue on the oral Lasix. Work with physical therapy. 3. Lower extremity edema still present improved. Continue with same oral Lasix. Labs in a.m.. Potassium stable high end of normal 4. Hypomagnesemia. Persistent unclear why. Patient was given magnesium today. Will recheck in a.m.. 5. Type 2 diabetes. Continue with metformin home medication and insulin sliding scale coverage with diabetic diet. 6. Bipolar disorder. Chronic and stable. Without acute exacerbation continue with current outpatient psychiatric medications which include Depakote and Zyprexa 7. Hypothyroidism. Recent TSH is normal continue with thyroid medication. 8. Gout without current flare. 9. Hypertension. Blood pressure is well controlled continue with lisinopril. Monitor closely for blood pressure elevation. 10. Urinary incontinence oxybutynin will be continued. 43 minutes spent with patient reviewing chart and discussing with physicians and nursing meeting with patient formulating a plan and documentation Code status is full Disposition: Patient will be transferred to skilled care facility tomorrow. Quality VTE Deep Vein Thrombosis/Pulmonary Embolism Present on Admission: No
[2023-08-05 20:48] VITALS: BP 146/70; PULSE 71; RESP 20; TEMP 36.4; O2SAT 98
[2023-08-05] MEDS: OLANZapine 2.5 MG TABLET 5 MG PO (21:01)
[2023-08-05] MEDS: GABAPENTIN 300 MG CAPSULE 600 MG PO (21:01)
[2023-08-05 21:02] VITALS: BP 146/70; PULSE 71
[2023-08-05] MEDS: DIVALPROEX ER 250 MG TAB 1250 MG PO (21:02)
[2023-08-05] MEDS: cloNIDine 0.1 MG TABLET 0.2 MG PO (21:02)
[2023-08-06] MEDS: LEVOTHYROXINE 50 MCG TABLET 150 MCG PO (05:26)
[2023-08-06 05:33] LABS: BUN Creatinine Ratio 29.9 (6-22); Blood Urea Nitrogen 29 mg/dL (7-17); Calcium 9.6 mg/dL (8.4-10.2); Carbon Dioxide 29 mmol/L (22-32); Chloride 100 mmol/L (98-107); Estimated Glomerular Filt Rate > 60 mL/min (>60); Glucose 190 mg/dL (80-110); HEMOLYSIS < 15 (0-50); Magnesium 1.2 mg/dL (1.6-2.3); Potassium 4.7 mmol/L (3.4-5.1); Sodium 135 mmol/L (137-145)
[2023-08-06 07:00] VITALS: BP 103/56; PULSE 72; RESP 17; TEMP 36.2; O2SAT 96
[2023-08-06] MEDS: ENOXAPARIN 40 MG/0.4 ML SYRINGE SUBCUT (07:55)
[2023-08-06] MEDS: INSULIN LISPRO 100 UNIT/ML 3ML VIAL SUBCUT (07:56)
--- NOTE | 2023-08-06 07:56 | P.PN_ITS ---
Subjective Subjective Date Patient Seen: 08/06/23 Time Patient Seen: 08:22 Interval history: Patient seen and evaluated this morning. Comfortably in bed states she is tired. Working a little bit with physical therapy. No other complaints today. Bowel movement urination or okay some lower extremity edema. No respiratory or cardiac distress. Patient has no concerns. Discharge plan pending at this point. Waiting for insurance to authorize senior living. Exam Vital Signs (past 8 hours): Oxygen Delivery Method Room Air Oxygen Flow Rate 0 Narrative Exam Narrative: Gen.: Alert oriented no apparent distress HEENT: Pupils equal round and reactive or mucosa is moist neck is supple Cardio: [S1-S2 regular rate and rhythm no murmurs appreciated.] Respiratory: [Lungs are clear to auscultation no wheezes or crackles normal respiratory effort.] Abdomen: [Soft nontender no rebound or guarding no liver spleen enlargement no appreciable hernias] Extremities: Full range of motion moderate amount of edema Objective Labs 08/05/23 04:55 08/06/23 04:55 Labs: Laboratory Results - last 24 hr 08/06/23 04:55 Sodium 135 L Potassium 4.7 Chloride 100 Carbon Dioxide 29 BUN 29 H Creatinine 0.97 Estimated GFR > 60 BUN/Creatinine Ratio 29.9 H Glucose 190 H Calcium 9.6 Magnesium 1.2 L PFSH Medical History Bipolar 1 disorder, depressed, partial remission Psychosis COVID-19 Bipolar 1 disorder, mixed, full remission Hyperlipidemia DM type 2 (diabetes mellitus, type 2) Bipolar I disorder, most recent episode depressed, severe without psychotic features Bipolar disorder (1989) Fractures (2007) Foot pain (~2002) Ankle pain (2007) Peripheral neuropathy (2013) Hayfever (~1989) Sleep apnea (08/2015) Hypertension Hypothyroidism Urinary incontinence Cataract (2011) Chicken pox Measles CTS (carpal tunnel syndrome) (1987) RLS (restless legs syndrome) (1999) Anxiety (1994) Depression (1961) Surgical History Anesthesia complication History of surgery (04/2008) History of carpal tunnel repair (~1997) Family History Child Age: 51 Arthritis Mother Heart disease Family history of fraternal twins Family history of identical twins Levin gestation with first Social History marital status: number of children: 2 household members: children lives independently: Yes caregiver/support person: No housing: house pets and animals: No education level: high school occupational status: unemployed leisure activities: reading and volunteer work other: walk,garden,visit friends,yazidism,word puzzles seatbelt use: always water heater temp set < 120 deg: Yes working smoke detector in home: Yes fire extinguisher in home: Yes carbon monox detector in home: Yes Smoking Status: Never smoker second hand exposure: No alcohol intake: current substance use type: does not use during the past year weight has: other well-balanced diet: rarely or never daily servings fruits/ve-1 caffeine: Yes eating out: 1-3 times/week frequency: 3-4 times per week duration: 15-30 minutes/day Assessment & Plan Assessment and plan (1) Bipolar 1 disorder, depressed, partial remission: Status: Acute (2) Adult failure to thrive: Status: Acute Plan Adult failure to thrive Patient with global lysed weakness history of recurrent falls and failure to thrive with multiple emergency department visits in the last few weeks admitted for further evaluation and workup. Laboratory tests studies x-rays were reviewed. Patient stable over the weekend. No recent laboratory changes magnesium level is low we will go ahead and restart oral magnesium. Acute hypoxic respiratory failure. Patient had hypoxia on admission to the hospital. Chest x-ray echocardiogram within normal limits off oxygen now. Back to baseline. Lower extremity edema still present. On or Lasix potassium and electrolytes will be replaced. Normal kidney function Hypomagnesemia. Oral magnesium replacement provided today. Type 2 diabetes. Continue with oral home medication and insulin sliding scale coverage as needed. Bipolar. Disorder. Chronic and stable. Without acute exacerbation continue with current outpatient psychiatric medications which include Depakote and Zyprexa Hypothyroidism. Recent TSH is normal continue with thyroid medication. Gout without current flare. Hypertension. Blood pressure looks good today. Urinary incontinence oxybutynin will be continued. Plan awaiting insurance authorization for discharge to skilled facility if not home with home health and community toilet products molder if patient goes home anticipate patient returning to the hospital immediately. Quality VTE Deep Vein Thrombosis/Pulmonary Embolism Present on Admission: No [facility] PROFEE Charge codes Subsequent inpatient/observation care: [id number]
[2023-08-06] MEDS: METFORMIN HCL 500 MG TABLET 1000 MG PO (07:58)
[2023-08-06] MEDS: allopurinoL 100 MG TABLET 300 MG PO (07:58)
[2023-08-06] MEDS: ATORVASTATIN 20 MG TABLET 40 MG PO (07:58)
[2023-08-06] MEDS: FUROSEMIDE 40 MG TABLET PO (07:58)
[2023-08-06] MEDS: OXYBUTYNIN 5 MG TABLET PO (07:59)
[2023-08-06] MEDS: GABAPENTIN 300 MG CAPSULE PO (07:59)
--- NOTE | 2023-08-06 09:19 | PC.NURSE ---
Addendum entered by Tara Rodney R.N. 08/06/23 11:39: Patient discharged and report called to [facility] 1139, Original Note: Assess- Patients blood sugar this morning 190, insulin given and patient ate well at breakfast. She denies pain and has pure wick placed.
--- NOTE | 2023-08-06 09:34 | CM.DPNOTE ---
Addendum entered by RAFA Santos 08/06/23 11:40: PEDIATRICS PHYSICIAN received notice from [facility] got ins auth- transport scheduled to p/u pt at 11:30am. PEDIATRICS PHYSICIAN updated RN/CHILD LIFE ASSISTANT/provider. in agreement with plan. PEDIATRICS PHYSICIAN gave RN report number to RN. PEDIATRICS PHYSICIAN updated pt/dtr Lynne. In agreement with plan. Lynne reports pt has been there before. MAK Meek emailed Kerri at [facility] dc information, PASRR, and signed med list and then placed in dc packet in chart. Transport arrived 40 mins early for p/u. FRONT SIGHT ATTACHER and RN got pt ready to dc. PEDIATRICS PHYSICIAN called KEYSHA Vasques P [phone] and updated her on plan. Appreciative of the update. PEDIATRICS PHYSICIAN called Community fruit packer Dain Cuevas and updated him on the plan. Appreciative of the update. Plan: pt dc'd today to [facility]. KEYSHA to follow for LTC plan. CM team will continue to follow as needed. SL Original Note: DCP Note PEDIATRICS PHYSICIAN spoke with provider. Provider reports pt able to dc to SNF when auth is obtained. PEDIATRICS PHYSICIAN spoke with Kerri from [facility]. Auth remains pending as of 929 morning. Plan: [facility] (ins auth pending) vs home with resumption of [facility]. if home with family and [facility], CM team will alert Community fruit packer Dain Cuevas that patient is returning home. Either way, CM team will coordinate with KEYSHA Vasques P [phone] about the DCP. RAFA Santos
[2023-08-06] MEDS: MAGNESIUM OXIDE 400 MG TABLET PO (10:33)
--- NOTE | 2023-08-06 10:56 | PM.DS.1 ---
History of Present Illness History of Present Illness Chief complaint: weakness Discharge Providers Provider Date of admission: 08/02/23 05:43 Discharge Date: 08/06/23 Primary care physician: Alina Corcoran MD Consults: 08/02/23 05:18 Consult to [employer]PER[employer]OR [employer] - Funeral Director Stat Comment: PLACEMENT WITH O2 08/02/23 06:03 Consult to Occupational Therapy Evaluate & Treat Comment: Physician Instructions: Evaluate and treat Consult to Physical Therapy Evaluate & Treat Comment: Physician Instructions: Evaluate and Treat Discharge provider: Mike Alberts MD Summary Hospital Course Discharge Diagnosis: Adult failure to thrive Patient with global lysed weakness history of recurrent falls and failure to thrive with multiple emergency department visits in the last few weeks admitted for further evaluation and workup. Laboratory tests studies x-rays were reviewed during hospital stay and no significant chest x-ray or laboratory abnormalities echocardiogram was done which showed normal ejection fraction. Patient stable over the weekend. During hospital stay she worked with physical therapy and occupational therapy and had some improvement of strength or was lots of concerns about her just being fatigued. Acute hypoxic respiratory failure. Patient had hypoxia on admission to the hospital. Chest x-ray echocardiogram within normal limits off oxygen now. Back to baseline. Patient was given IV Lasix initially and then oral Lasix. She had mild amount of diuresis but no improvement overall with shortness of breath or lower extremity edema. Lower extremity edema still present. Still present on discharge recommendation of elevation of feet and compression stockings. Low-dose Lasix in the hospital. Hypomagnesemia. Oral magnesium replacement provided today patient will be continue with outpatient oral magnesium replacement. Type 2 diabetes. Continue with oral home medication and insulin sliding scale coverage as needed. Blood sugars are well controlled throughout the hospital stay she was on a diabetic diet. Bipolar. Disorder. Chronic and stable. Without acute exacerbation continue with current outpatient psychiatric medications which include Depakote and Zyprexa no changes to her bipolar medication and it has an it is chronic stable state. Hypothyroidism. Recent TSH is normal continue with thyroid medication. These will be continued in the care facility Gout without current flare. Hypertension. Blood pressure looks good today. Continue with antihypertensive medications at the care facility and at home Urinary incontinence oxybutynin will be continued. Patient will be discharged to correction facility to continue work on rehab strengthening program. Anticipate long-term discharge back home. Exam Vital Signs (past 8 hours): - 08/06/23 07:00 Temperature 97.1 F L Pulse Rate 72 Respiratory Rate 17 Blood Pressure 103/56 L Pulse Oximetry 96 Oxygen Flow Rate 0 Oxygen Delivery Method Room Air Oxygen Flow Rate 0 Objective Labs 08/05/23 04:55 08/06/23 04:55 Labs: Laboratory Results - last 24 hr 08/06/23 04:55 Sodium 135 L Potassium 4.7 Chloride 100 Carbon Dioxide 29 BUN 29 H Creatinine 0.97 Estimated GFR > 60 BUN/Creatinine Ratio 29.9 H Glucose 190 H Calcium 9.6 Magnesium 1.2 L PFSH Medical History Bipolar 1 disorder, depressed, partial remission Psychosis COVID-19 Bipolar 1 disorder, mixed, full remission Hyperlipidemia DM type 2 (diabetes mellitus, type 2) Bipolar I disorder, most recent episode depressed, severe without psychotic features Bipolar disorder (1989) Fractures (2007) Foot pain (~2002) Ankle pain (2007) Peripheral neuropathy (2013) Hayfever (~1989) Sleep apnea (08/2015) Hypertension Hypothyroidism Urinary incontinence Cataract (2011) Chicken pox Measles CTS (carpal tunnel syndrome) (1987) RLS (restless legs syndrome) (1999) Anxiety (1994) Depression (1961) Surgical History Anesthesia complication History of surgery (04/2008) History of carpal tunnel repair (~1997) Family History Child Age: 51 Arthritis Mother Heart disease Family history of fraternal twins Family history of identical twins Levin gestation with first Social History marital status: number of children: 2 household members: children lives independently: Yes caregiver/support person: No housing: house pets and animals: No education level: high school occupational status: unemployed leisure activities: reading and volunteer work other: walk,garden,visit friends,oriental orthodox,word puzzles seatbelt use: always water heater temp set < 120 deg: Yes working smoke detector in home: Yes fire extinguisher in home: Yes carbon monox detector in home: Yes Smoking Status: Never smoker second hand exposure: No alcohol intake: current substance use type: does not use during the past year weight has: other well-balanced diet: rarely or never daily servings fruits/ve-1 caffeine: Yes eating out: 1-3 times/week frequency: 3-4 times per week duration: 15-30 minutes/day Discharge Plan Discharge Plan Patient Disposition: SNF I certify the postop hospital correction care is medically necessary on a continuing basis for any conditions for which he/ she received care during this hospitalization.: Yes The receiving facility has agreed to accept transfer and provide medical treatment.: Yes Discharge orders & Medications Prescriptions: Continued (DME) DISABLED PARKING PLACARD See Rx Instructions .Route .MEDSUPPLY Qty: 1 0RF Rx Instructions: 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 olanzapine 5 mg tablet 5 mg PO BEDTIME Qty: 90 3RF divalproex [Depakote ER] 500 mg tablet extended release 24 hr 1,000 mg PO BEDTIME 90 Days Qty: 180 1RF clonidine HCl 0.1 mg tablet 0.2 mg PO BEDTIME Qty: 60 3RF gabapentin 300 mg capsule See Rx Instructions .ROUTE .COMPLEX Rx Instructions: 300 mg po qam and 600 mg po qpm; levothyroxine [Synthroid] 150 mcg tablet 150 mcg PO DAILY Qty: 90 3RF (DME) Depends Incontinence supplies XL See Rx Instructions .Route .MEDSUPPLY Qty: 100 3RF Rx Instructions: for three times daily changes (DME) Prevail Plus pads 6 See Rx Instructions .Route .MEDSUPPLY Qty: 90 3RF Rx Instructions: As directed oxybutynin chloride 5 mg tablet 5 mg PO BID Qty: 60 2RF nystatin 100,000 unit/gram powder 1 applic topical TID Qty: 60 0RF metformin 500 mg tablet See Rx Instructions PO .COMPLEX Qty: 90 0RF Rx Instructions: 250 mg (1/2 tab) twice daily for one week then increase to 500mg (1 tab) twice daily allopurinol 300 mg tablet See Rx Instructions .ROUTE .COMPLEX Qty: 90 2RF Dose Instruction: TAKE 1 TABLET BY MOUTH DAILY FOR GOUT Rx Instructions: TAKE 1 TABLET BY MOUTH DAILY FOR GOUT magnesium 250 mg tablet 250 mg PO DAILY Qty: 10 0RF atorvastatin 40 mg tablet 40 mg PO DAILY Follow up/Referrals: Alina Corcoran MD [Primary Care Provider] - Visit Report/Discharge Packet Stand Alone Forms: Patient Portal/API Discharge Data Primary Care Provider: Alina Corcoran Attending Provider: Mike Alberts Admit Date/Time: 08/02/23 05:43 Quality VTE Deep Vein Thrombosis/Pulmonary Embolism Present on Admission: No
== END 2023-08-06 11:15 ==
LOC: ED 05:18 → AC 05:44
PROVIDERS: Family Medicine; Pharmacist Pharmacist Clinician (PhC)/ Clinical Pharmacy Specialist; Admitting Provider Family Medicine; Emergency Provider Emergency Medicine; Family Provider Family Medicine; PCP Family Medicine; Referring Provider Emergency Medicine; Visit Provider Family Medicine
DX: J96.01 Acute respiratory failure with hypoxia (principal); R62.7 Adult failure to thrive; R29.6 Repeated falls; E78.5 Hyperlipidemia, unspecified; E11.65 Type 2 diabetes mellitus with hyperglycemia; E03.9 Hypothyroidism, unspecified; I10 Essential (primary) hypertension; M10.9 Gout, unspecified; F31.75 Bipolar disorder, in partial remission, most recent episode depressed; R53.1 Weakness; E83.42 Hypomagnesemia; R32 Unspecified urinary incontinence; Z79.84 Long term (current) use of oral hypoglycemic drugs
CPT/HCPCS: 36415; 36600; 71045; 80048; 80053; 81001; 82550; 82805; 82962; 83735; 83880; 84484; 85025; 93005; 96361; 96365; 96366; 96372; 96375; 97116; 97161; 97166; 97530; 97535; 99232; 99233; 99285; G0378; C8929; J1650; J1815; J1940; J3475; Q9957

== ENCOUNTER → 2023-12-03 10:31 | Outpatient (CLI) | payer MEDICARE, MEDICAID, SELFPAY ==
[2023-08-24 16:41] VITALS: BMI 43.4
[2023-12-03 12:27] LABS: TSH w/ Reflex to FT4 1.05 uIU/mL (0.47-4.68)
[2023-12-03 15:00] LABS: Hemoglobin A1C% w Est Avg Glu 6.7 % (4.0-6.0)
== END ==
PROVIDERS: Family Provider Family Medicine; PCP Family Medicine; Referring Provider Family Medicine; Visit Provider Family Medicine
DX: E11.9 Type 2 diabetes mellitus without complications (principal); E03.9 Hypothyroidism, unspecified
CPT/HCPCS: 36415; 83036; 84443

== ENCOUNTER 2024-02-03 03:20 | Emergency (ER) | payer MEDICARE, MEDICAID, SELFPAY ==
[2023-08-24 16:41] VITALS: BMI 43.4
[2024-02-03] VITALS (23 sets, daily range): BP systolic 126–150; BP diastolic 56–65; PULSE 69–88; RESP 16–20; TEMP 36.4; O2SAT 88–97; BMI 45.7
--- NOTE | 2024-02-03 03:35 | PC.NURSE ---
pt states she has been eating and drinking normally, recently had her flu and covid vaccinations stats was not feeling weak before that
[2024-02-03 04:04] LABS: Add Manual Diff / Slide Review NO; Basophils Absolute Auto 0 /uL (0-100); Basophils Percent Auto 0.4 % (0-2); Eosinophils Absolute Auto 100 /uL (0-450); Eosinophils Percent Auto 0.9 % (2-4); Hematocrit 39.5 % (36-46); Hemoglobin 13.1 g/dL (12.0-16.0); Lymphocytes Absolute Auto 2200 /uL (1100-4500); Lymphocytes Percent Auto 33.1 % (25-40); Mean Corpuscular HGB Conc 33.3 % (30-36); Mean Corpuscular Hemoglobin 32.7 PG (26-34); Mean Corpuscular Volume 98.1 fL (80-100); Monocytes Absolute Auto 700 /uL (0-900); Monocytes Percent Auto 9.9 % (3-14); Neutrophils Absolute Auto 3700 /uL (1500-7000); Neutrophils Percent Auto 55.7 % (50-75); Platelet Count 152 X10^3/uL (150-400); Red Blood Cell Count 4.02 X10^6/uL (4.0-5.2); Red Cell Distribution Width 17.3 % (11.6-14.8); White Blood Cell Count 6.7 X10^3/uL (4.5-11.0)
[2024-02-03 04:09] LABS: Alanine Aminotransferase 32 IU/L (<35); Albumin Globulin Ratio 1.3 (1.0-2.8); Alkaline Phosphatase 88 U/L (38-126); Aspartate Aminotransferase 34 IU/L (14-36); BUN Creatinine Ratio 14.6 (6-22); Bilirubin Total 0.4 mg/dL (0.2-1.3); Blood Urea Nitrogen 15 mg/dL (7-17); Calcium 9.6 mg/dL (8.4-10.2); Carbon Dioxide 28 mmol/L (22-32); Chloride 101 mmol/L (98-107); Estimated Glomerular Filt Rate 58 mL/min (>60); Globulin 3.1 g/dL (1.7-4.1); Glucose 134 mg/dL (80-110); HEMOLYSIS < 15 (0-50); Potassium 4.2 mmol/L (3.4-5.1); Sodium 136 mmol/L (137-145); Total Protein 7.1 g/dL (6.3-8.2)
--- NOTE | 2024-02-03 05:33 | ED.GENADULT ---
HPI - General Adult <Attila Goldsmith MD - Last Filed: 02/03/24 19:15> General Chief complaint: Weakness Stated complaint: low O2 sat Time Seen by Provider: 02/03/24 04:00 Source: patient and EMS Mode of arrival: EMS History of Present Illness HPI narrative: 73-year-old female resident at [facility], noted by staff to have low oxygen levels, patient did have some shortness of breath, felt better on supplemental nasal canula oxygen, not usually on any oxygen. She denies chest pain, recent cough, fevers, chills, leg pains, leg swelling. No history of blood clots known to legs or lungs. No recent antibiotics recalled by patient. No diagnosis of congestive heart failure or chronic lung disease or COPD recalled by patient. No fall trauma injuries recalled. Related Data Home Medications Medication Instructions Recorded Confirmed gabapentin 300 mg capsule See Rx Instructions .Route .COMPLEX 07/09/23 12/03/23 empagliflozin 10 mg tablet 10 mg PO DAILY 12/03/23 12/03/23 (Jardiance) levothyroxine 137 mcg tablet 137 mcg PO DAILY 12/03/23 12/03/23 metformin 500 mg tablet 500 mg PO BID 12/03/23 12/03/23 sitagliptin 100 mg tablet 100 mg PO DAILY 12/03/23 12/03/23 doxylamine succinate 25 mg tablet mg PO 01/01/24 01/01/24 (Sleep Aid (doxylamine)) sitagliptin phosphate 100 mg 100 mg PO DAILY 01/01/24 01/01/24 tablet (Januvia) Previous Rx's Medication Instructions Recorded DISABLED P[employer] #1 ea 11/24/22 Depends Incontinence supplies #100 ea 03/15/23 Prevail Plus pads #90 ea 03/15/23 oxybutynin chloride 5 mg tablet 5 mg PO BID #60 tabs 06/15/23 clonidine HCl 0.1 mg tablet 0.2 mg (2 x 0.1 mg) PO BEDTIME #60 07/09/23 tabs magnesium 250 mg tablet 250 mg PO DAILY #10 tabs 07/24/23 allopurinol 300 mg tablet See Rx Instructions .Route 08/01/23 .COMPLEX #90 tabs atorvastatin 40 mg tablet 40 mg PO BEDTIME #90 tabs 12/17/23 bisacodyl 10 mg rectal suppository 10 mg UT DAILY PRN constipation 12/17/23 #30 ea simethicone 80 mg chewable tablet See Rx Instructions PO 6XD #30 tabs 12/17/23 divalproex 250 mg tablet,delayed 250 mg PO DAILY #30 tabs 12/20/23 release divalproex 500 mg tablet,extended See Rx Instructions PO BEDTIME #60 12/20/23 release 24 hr (Depakote ER) tabs olanzapine 5 mg tablet 5 mg PO BEDTIME #90 tabs 12/20/23 Allergies Allergy/AdvReac Type Severity Reaction Status Date / Time Sulfa (Sulfonamide Allergy Mild RASH Verified 01/01/24 15:55 Antibiotics) haloperidol [HALOPERIDOL] Allergy Unknown Verified 01/01/24 15:55 lithium [LITHIUM] Allergy Unknown Verified 01/01/24 15:55 risperidone [RISPERIDONE] Allergy Unknown Verified 01/01/24 15:55 lidocaine AdvReac Intermediate gait Verified 01/01/24 15:55 instability perphenazine AdvReac uncontrolled Verified 01/01/24 15:55 hand shaking Review of Systems <Attila Goldsmith MD - Last Filed: 02/03/24 19:15> Review of Systems Narrative: see HPI Patient History <Attila Goldsmith MD - Last Filed: 02/03/24 19:15> Medical History Bipolar 1 disorder, depressed, partial remission Psychosis COVID-19 Bipolar 1 disorder, mixed, full remission Hyperlipidemia DM type 2 (diabetes mellitus, type 2) Bipolar I disorder, most recent episode depressed, severe without psychotic features Bipolar disorder (1989) Fractures (2007) Foot pain (~2002) Ankle pain (2007) Peripheral neuropathy (2013) Hayfever (~1989) Sleep apnea (08/2015) Hypertension Hypothyroidism Urinary incontinence Cataract (2011) Chicken pox Measles CTS (carpal tunnel syndrome) (1987) RLS (restless legs syndrome) (1999) Anxiety (1994) Depression (1961) Surgical History Anesthesia complication History of surgery (04/2008) History of carpal tunnel repair (~1997) Family History Child Age: 52 Arthritis Mother Heart disease Family history of fraternal twins Family history of identical twins Levin gestation with first Social History marital status: number of children: 2 household members: children lives independently: Yes caregiver/support person: No housing: house pets and animals: No education level: high school occupational status: unemployed leisure activities: reading and volunteer work other: walk,garden,visit friends,mormon,word puzzles seatbelt use: always water heater temp set < 120 deg: Yes working smoke detector in home: Yes fire extinguisher in home: Yes carbon monox detector in home: Yes Smoking Status: Never smoker second hand exposure: No alcohol intake: current substance use type: does not use during the past year weight has: other well-balanced diet: rarely or never daily servings fruits/ve-1 caffeine: Yes eating out: 1-3 times/week frequency: 3-4 times per week duration: 15-30 minutes/day Smoking Status: Never smoker alcohol intake frequency: holidays/special occasions only Substance Use Type: does not use Exam <Attila Goldsmith MD - Last Filed: 02/03/24 19:15> Narrative Exam Narrative: GENERAL: Well-developed patient, in mild distress. Sleeping but easily aroused for history HEAD: Atraumatic. Normocephalic. EYES: Pupils equal round and reactive. Extraocular motions intact. No scleral icterus. No injection or drainage. ENT: Nose without bleeding, purulent drainage. Throat without erythema, tonsillar hypertrophy or exudate. Airway patent. NECK: Trachea midline. Non tender CARDIOVASCULAR: Regular rate and rhythm without murmurs, gallops, or rubs. RESPIRATORY: Clear to auscultation. Breath sounds equal bilaterally. No wheezes, rales, or rhonchi. On 3 L nasal cannula oxygen, not usually on oxygen GASTROINTESTINAL: Abdomen soft, non-tender, nondistended. EXTREMITIES: No edema or joint tenderness. BACK: Nontender without deformity or crepitance. No flank tenderness. NEURO: AOx3. Motor functions grossly nonfocal SKIN: No rash or erythema of visible areas Initial Vital Signs Initial Vital Signs: Vital Signs Pulse Oximetry 97 02/03/24 03:24 <Hanna Martinez MD - Last Filed: 02/03/24 10:26> Initial Vital Signs Initial Vital Signs: Vital Signs Pulse Oximetry 97 02/03/24 03:24 Course <Attila Goldsmith MD - Last Filed: 02/03/24 19:15> Orders Ordered: Discontinued Medications Albuterol (Albuterol 2.5 Mg/3 Ml Neb (Adult)) 2.5 mg INH NOW ONE Stop: 02/03/24 06:40 Last Admin: 02/03/24 07:11 Dose: 2.5 mg Documented By: SAT Vital Signs Vital signs: Vital Signs - 8 hr 02/03/24 03:24 02/03/24 03:25 02/03/24 03:25 Temperature Pulse Rate 76 Respiratory Rate Blood Pressure 128/58 L Pulse Oximetry 97 96 Oxygen Delivery Method Oxygen Flow Rate 02/03/24 03:30 02/03/24 03:30 02/03/24 03:31 Temperature 97.5 F L Pulse Rate 75 74 Respiratory Rate 18 18 Blood Pressure 128/58 L 126/56 L Pulse Oximetry 96 96 Oxygen Delivery Method Room Air Oxygen Flow Rate 02/03/24 03:31 02/03/24 04:00 02/03/24 04:00 Temperature Pulse Rate 75 74 Respiratory Rate Blood Pressure 128/58 L Pulse Oximetry 96 96 Oxygen Delivery Method Oxygen Flow Rate 02/03/24 04:30 02/03/24 04:30 02/03/24 05:00 Temperature Pulse Rate 74 Respiratory Rate Blood Pressure 138/61 129/61 Pulse Oximetry 96 Oxygen Delivery Method Oxygen Flow Rate 02/03/24 05:00 02/03/24 05:30 02/03/24 05:30 Temperature Pulse Rate 72 72 Respiratory Rate Blood Pressure 128/59 L Pulse Oximetry 96 96 Oxygen Delivery Method Oxygen Flow Rate 02/03/24 06:00 02/03/24 06:00 02/03/24 06:30 Temperature Pulse Rate 72 Respiratory Rate 18 Blood Pressure 128/59 L 141/65 H Pulse Oximetry 96 Oxygen Delivery Method Oxygen Flow Rate 02/03/24 06:30 02/03/24 07:00 02/03/24 07:00 Temperature Pulse Rate 72 73 Respiratory Rate 20 Blood Pressure 128/58 L Pulse Oximetry 96 96 Oxygen Delivery Method Oxygen Flow Rate 02/03/24 07:16 02/03/24 07:30 02/03/24 07:31 Temperature Pulse Rate 72 72 Respiratory Rate 16 Blood Pressure 141/63 H Pulse Oximetry 97 95 Oxygen Delivery Method Nasal Cannula Nasal Cannula Oxygen Flow Rate 2 2 02/03/24 07:31 02/03/24 08:00 02/03/24 08:19 Temperature Pulse Rate 72 72 Respiratory Rate Blood Pressure 150/64 H Pulse Oximetry 95 94 Oxygen Delivery Method Nasal Cannula Nasal Cannula Oxygen Flow Rate 2 2 02/03/24 08:19 02/03/24 08:30 02/03/24 08:30 Temperature Pulse Rate 73 70 Respiratory Rate Blood Pressure 141/62 H Pulse Oximetry 88 L 92 Oxygen Delivery Method Room Air Nasal Cannula Oxygen Flow Rate 2 02/03/24 09:00 02/03/24 09:00 02/03/24 09:30 Temperature Pulse Rate 70 69 Respiratory Rate Blood Pressure 133/63 Pulse Oximetry 96 97 Oxygen Delivery Method Oxygen Flow Rate 02/03/24 09:30 Temperature Pulse Rate Respiratory Rate Blood Pressure 146/65 H Pulse Oximetry Oxygen Delivery Method Oxygen Flow Rate <Hanna Martinez MD - Last Filed: 02/03/24 10:26> Orders Ordered: Discontinued Medications Albuterol (Albuterol 2.5 Mg/3 Ml Neb (Adult)) 2.5 mg INH NOW ONE Stop: 02/03/24 06:40 Last Admin: 02/03/24 07:11 Dose: 2.5 mg Documented By: SAT Vital Signs Vital signs: Vital Signs - 8 hr 02/03/24 03:24 02/03/24 03:25 02/03/24 03:25 Temperature Pulse Rate 76 Respiratory Rate Blood Pressure 128/58 L Pulse Oximetry 97 96 Oxygen Delivery Method Oxygen Flow Rate 02/03/24 03:30 02/03/24 03:30 02/03/24 03:31 Temperature 97.5 F L Pulse Rate 75 74 Respiratory Rate 18 18 Blood Pressure 128/58 L 126/56 L Pulse Oximetry 96 96 Oxygen Delivery Method Room Air Oxygen Flow Rate 02/03/24 03:31 02/03/24 04:00 02/03/24 04:00 Temperature Pulse Rate 75 74 Respiratory Rate Blood Pressure 128/58 L Pulse Oximetry 96 96 Oxygen Delivery Method Oxygen Flow Rate 02/03/24 04:30 02/03/24 04:30 02/03/24 05:00 Temperature Pulse Rate 74 Respiratory Rate Blood Pressure 138/61 129/61 Pulse Oximetry 96 Oxygen Delivery Method Oxygen Flow Rate 02/03/24 05:00 02/03/24 05:30 02/03/24 05:30 Temperature Pulse Rate 72 72 Respiratory Rate Blood Pressure 128/59 L Pulse Oximetry 96 96 Oxygen Delivery Method Oxygen Flow Rate 02/03/24 06:00 02/03/24 06:00 02/03/24 06:30 Temperature Pulse Rate 72 Respiratory Rate 18 Blood Pressure 128/59 L 141/65 H Pulse Oximetry 96 Oxygen Delivery Method Oxygen Flow Rate 02/03/24 06:30 02/03/24 07:00 02/03/24 07:00 Temperature Pulse Rate 72 73 Respiratory Rate 20 Blood Pressure 128/58 L Pulse Oximetry 96 96 Oxygen Delivery Method Oxygen Flow Rate 02/03/24 07:16 02/03/24 07:30 02/03/24 07:31 Temperature Pulse Rate 72 72 Respiratory Rate 16 Blood Pressure 141/63 H Pulse Oximetry 97 95 Oxygen Delivery Method Nasal Cannula Nasal Cannula Oxygen Flow Rate 2 2 02/03/24 07:31 02/03/24 08:00 02/03/24 08:19 Temperature Pulse Rate 72 72 Respiratory Rate Blood Pressure 150/64 H Pulse Oximetry 95 94 Oxygen Delivery Method Nasal Cannula Nasal Cannula Oxygen Flow Rate 2 2 02/03/24 08:19 02/03/24 08:30 02/03/24 08:30 Temperature Pulse Rate 73 70 Respiratory Rate Blood Pressure 141/62 H Pulse Oximetry 88 L 92 Oxygen Delivery Method Room Air Nasal Cannula Oxygen Flow Rate 2 02/03/24 09:00 02/03/24 09:00 02/03/24 09:30 Temperature Pulse Rate 70 69 Respiratory Rate Blood Pressure 133/63 Pulse Oximetry 96 97 Oxygen Delivery Method Oxygen Flow Rate 02/03/24 09:30 Temperature Pulse Rate Respiratory Rate Blood Pressure 146/65 H Pulse Oximetry Oxygen Delivery Method Oxygen Flow Rate Medical Decision Making <Attila Goldsmith MD - Last Filed: 02/03/24 19:15> Lab Data 02/03/24 03:48 02/03/24 03:48 Labs: Lab Results 02/03/24 02/03/24 02/03/24 Range/Units 03:48 06:25 08:30 WBC 6.7 (4.5-11.0) X10^3/uL RBC 4.02 (4.0-5.2) X10^6/uL Hgb 13.1 (12.0-16.0) g/dL Hct 39.5 (36-46) % MCV 98.1 (80-100) fL MCH 32.7 (26-34) PG MCHC 33.3 (30-36) % RDW 17.3 H (11.6-14.8) % Plt Count 152 (150-400) X10^3/uL Neut % (Auto) 55.7 (50-75) % Lymph % (Auto) 33.1 (25-40) % Hardeman % (Auto) 9.9 (3-14) % Eos % (Auto) 0.9 L (2-4) % Baso % (Auto) 0.4 (0-2) % Neut # (Auto) 3700 (3049-8659) /uL Lymph # (Auto) 2200 (2995-0126) /uL Hardeman # (Auto) 700 (0-900) /uL Eos # (Auto) 100 (0-450) /uL Baso # (Auto) 0 (0-100) /uL Sodium 136 L (137-145) mmol/L Potassium 4.2 (3.4-5.1) mmol/L Chloride 101 (98-107) mmol/L Carbon Dioxide 28 (22-32) mmol/L BUN 15 (7-17) mg/dL Creatinine 1.03 (0.52-1.04) mg/dL Estimated GFR 58 L (>60) mL/min BUN/Creatinine Ratio 14.6 (6-22) Glucose 134 H (80-110) mg/dL Calcium 9.6 (8.4-10.2) mg/dL Total Bilirubin 0.4 (0.2-1.3) mg/dL AST 34 (14-36) IU/L ALT 32 (<35) IU/L Alkaline Phosphatase 88 (38-126) U/L Troponin I < 0.012 (0.01-0.034) ng/mL NT-Pro-B Natriuret Pep 480 H (<125) pg/mL Total Protein 7.1 (6.3-8.2) g/dL Albumin 4.0 (3.5-5.0) g/dL Globulin 3.1 (1.7-4.1) g/dL Albumin/Globulin Ratio 1.3 (1.0-2.8) Urine Color Yellow Urine Appearance Clear Urine pH 5.5 (4.5-8.0) Ur Specific Surprise 1.020 (1.000-1.035) Urine Protein 1+ H (Negative) Urine Glucose (UA) 3+ H (Negative) g/dL Urine Ketones 1+ H (NEGATIVE) Urine Occult Blood Negative (Negative) Urine Nitrate Negative (Negative) Urine Bilirubin Negative (NEGATIVE) Urine Urobilinogen 0.2 (0.2) E.U./dL Ur Leukocyte Esterase Negative (NEGATIVE) Urine RBC 0-1/hpf (0-5/HPF) Urine WBC 0-1/hpf (0-5/HPF) Ur Squamous Epith Cells 5-10 /hpf H (0-5/HPF) Urine Bacteria Few (2-10) H (None) Ur Culture Indicated? Specimen cultured Vol Urine Centrifuged 10ml (spun) SARS-CoV-2 (PCR) Negative (Negative) Influenza A (RT-PCR) Flu a negative (NEGATIVE) Influenza B (RT-PCR) Flu b negative (NEGATIVE) RSV (PCR) Negative (Negative) 02/03/24 Range/Units 09:08 WBC (4.5-11.0) X10^3/uL RBC (4.0-5.2) X10^6/uL Hgb (12.0-16.0) g/dL Hct (36-46) % MCV (80-100) fL MCH (26-34) PG MCHC (30-36) % RDW (11.6-14.8) % Plt Count (150-400) X10^3/uL Neut % (Auto) (50-75) % Lymph % (Auto) (25-40) % Hardeman % (Auto) (3-14) % Eos % (Auto) (2-4) % Baso % (Auto) (0-2) % Neut # (Auto) (7270-3912) /uL Lymph # (Auto) (4771-2142) /uL Hardeman # (Auto) (0-900) /uL Eos # (Auto) (0-450) /uL Baso # (Auto) (0-100) /uL Sodium (137-145) mmol/L Potassium (3.4-5.1) mmol/L Chloride (98-107) mmol/L Carbon Dioxide (22-32) mmol/L BUN (7-17) mg/dL Creatinine (0.52-1.04) mg/dL Estimated GFR (>60) mL/min BUN/Creatinine Ratio (6-22) Glucose (80-110) mg/dL Calcium (8.4-10.2) mg/dL Total Bilirubin (0.2-1.3) mg/dL AST (14-36) IU/L ALT (<35) IU/L Alkaline Phosphatase (38-126) U/L Troponin I < 0.012 (0.01-0.034) ng/mL NT-Pro-B Natriuret Pep (<125) pg/mL Total Protein (6.3-8.2) g/dL Albumin (3.5-5.0) g/dL Globulin (1.7-4.1) g/dL Albumin/Globulin Ratio (1.0-2.8) Urine Color Urine Appearance Urine pH (4.5-8.0) Ur Specific Surprise (1.000-1.035) Urine Protein (Negative) Urine Glucose (UA) (Negative) g/dL Urine Ketones (NEGATIVE) Urine Occult Blood (Negative) Urine Nitrate (Negative) Urine Bilirubin (NEGATIVE) Urine Urobilinogen (0.2) E.U./dL Ur Leukocyte Esterase (NEGATIVE) Urine RBC (0-5/HPF) Urine WBC (0-5/HPF) Ur Squamous Epith Cells (0-5/HPF) Urine Bacteria (None) Ur Culture Indicated? Vol Urine Centrifuged SARS-CoV-2 (PCR) (Negative) Influenza A (RT-PCR) (NEGATIVE) Influenza B (RT-PCR) (NEGATIVE) RSV (PCR) (Negative) Point of Care Testing Glucose POC 118 Point of care testing: Point of Care Testing Glucose POC 118 ECG Data Attestation: I personally reviewed and interpreted this ECG as follows: Interpretation: Normal sinus rhythm with rate of 71, no obvious ST segment elevation or depression changes. Flat T-waves throughout noted. UT 132, QRS 82, QTC 465. MDM Narrative Medical decision making narrative: 73-year-old female resident of assisted care facility with new hypoxia noted by staff. Afebrile, sirs screen negative. Lungs clear. No respiratory distress. No obvious head or face trauma. Chest x-ray to my view shows elevated right hemidiaphragm, no obvious infiltrate, radiology over-read pending. EKG sinus with no obvious ischemic changes. Initial troponin negative. GFR favorable, CTA chest PE protocol ordered, to be performed. Interval repeat troponin pending. Signed out to Dr Martinez <Hanna Martinez MD - Last Filed: 02/03/24 10:26> Lab Data Labs: Lab Results 02/03/24 02/03/24 02/03/24 Range/Units 03:48 06:25 08:30 WBC 6.7 (4.5-11.0) X10^3/uL RBC 4.02 (4.0-5.2) X10^6/uL Hgb 13.1 (12.0-16.0) g/dL Hct 39.5 (36-46) % MCV 98.1 (80-100) fL MCH 32.7 (26-34) PG MCHC 33.3 (30-36) % RDW 17.3 H (11.6-14.8) % Plt Count 152 (150-400) X10^3/uL Neut % (Auto) 55.7 (50-75) % Lymph % (Auto) 33.1 (25-40) % Hardeman % (Auto) 9.9 (3-14) % Eos % (Auto) 0.9 L (2-4) % Baso % (Auto) 0.4 (0-2) % Neut # (Auto) 3700 (5162-3465) /uL Lymph # (Auto) 2200 (3512-5690) /uL Hardeman # (Auto) 700 (0-900) /uL Eos # (Auto) 100 (0-450) /uL Baso # (Auto) 0 (0-100) /uL Sodium 136 L (137-145) mmol/L Potassium 4.2 (3.4-5.1) mmol/L Chloride 101 (98-107) mmol/L Carbon Dioxide 28 (22-32) mmol/L BUN 15 (7-17) mg/dL Creatinine 1.03 (0.52-1.04) mg/dL Estimated GFR 58 L (>60) mL/min BUN/Creatinine Ratio 14.6 (6-22) Glucose 134 H (80-110) mg/dL Calcium 9.6 (8.4-10.2) mg/dL Total Bilirubin 0.4 (0.2-1.3) mg/dL AST 34 (14-36) IU/L ALT 32 (<35) IU/L Alkaline Phosphatase 88 (38-126) U/L Troponin I < 0.012 (0.01-0.034) ng/mL NT-Pro-B Natriuret Pep 480 H (<125) pg/mL Total Protein 7.1 (6.3-8.2) g/dL Albumin 4.0 (3.5-5.0) g/dL Globulin 3.1 (1.7-4.1) g/dL Albumin/Globulin Ratio 1.3 (1.0-2.8) Urine Color Yellow Urine Appearance Clear Urine pH 5.5 (4.5-8.0) Ur Specific Surprise 1.020 (1.000-1.035) Urine Protein 1+ H (Negative) Urine Glucose (UA) 3+ H (Negative) g/dL Urine Ketones 1+ H (NEGATIVE) Urine Occult Blood Negative (Negative) Urine Nitrate Negative (Negative) Urine Bilirubin Negative (NEGATIVE) Urine Urobilinogen 0.2 (0.2) E.U./dL Ur Leukocyte Esterase Negative (NEGATIVE) Urine RBC 0-1/hpf (0-5/HPF) Urine WBC 0-1/hpf (0-5/HPF) Ur Squamous Epith Cells 5-10 /hpf H (0-5/HPF) Urine Bacteria Few (2-10) H (None) Ur Culture Indicated? Specimen cultured Vol Urine Centrifuged 10ml (spun) SARS-CoV-2 (PCR) Negative (Negative) Influenza A (RT-PCR) Flu a negative (NEGATIVE) Influenza B (RT-PCR) Flu b negative (NEGATIVE) RSV (PCR) Negative (Negative) 02/03/24 Range/Units 09:08 WBC (4.5-11.0) X10^3/uL RBC (4.0-5.2) X10^6/uL Hgb (12.0-16.0) g/dL Hct (36-46) % MCV (80-100) fL MCH (26-34) PG MCHC (30-36) % RDW (11.6-14.8) % Plt Count (150-400) X10^3/uL Neut % (Auto) (50-75) % Lymph % (Auto) (25-40) % Hardeman % (Auto) (3-14) % Eos % (Auto) (2-4) % Baso % (Auto) (0-2) % Neut # (Auto) (7686-7501) /uL Lymph # (Auto) (2791-0661) /uL Hardeman # (Auto) (0-900) /uL Eos # (Auto) (0-450) /uL Baso # (Auto) (0-100) /uL Sodium (137-145) mmol/L Potassium (3.4-5.1) mmol/L Chloride (98-107) mmol/L Carbon Dioxide (22-32) mmol/L BUN (7-17) mg/dL Creatinine (0.52-1.04) mg/dL Estimated GFR (>60) mL/min BUN/Creatinine Ratio (6-22) Glucose (80-110) mg/dL Calcium (8.4-10.2) mg/dL Total Bilirubin (0.2-1.3) mg/dL AST (14-36) IU/L ALT (<35) IU/L Alkaline Phosphatase (38-126) U/L Troponin I < 0.012 (0.01-0.034) ng/mL NT-Pro-B Natriuret Pep (<125) pg/mL Total Protein (6.3-8.2) g/dL Albumin (3.5-5.0) g/dL Globulin (1.7-4.1) g/dL Albumin/Globulin Ratio (1.0-2.8) Urine Color Urine Appearance Urine pH (4.5-8.0) Ur Specific Surprise (1.000-1.035) Urine Protein (Negative) Urine Glucose (UA) (Negative) g/dL Urine Ketones (NEGATIVE) Urine Occult Blood (Negative) Urine Nitrate (Negative) Urine Bilirubin (NEGATIVE) Urine Urobilinogen (0.2) E.U./dL Ur Leukocyte Esterase (NEGATIVE) Urine RBC (0-5/HPF) Urine WBC (0-5/HPF) Ur Squamous Epith Cells (0-5/HPF) Urine Bacteria (None) Ur Culture Indicated? Vol Urine Centrifuged SARS-CoV-2 (PCR) (Negative) Influenza A (RT-PCR) (NEGATIVE) Influenza B (RT-PCR) (NEGATIVE) RSV (PCR) (Negative) Point of Care Testing Glucose POC 118 Point of care testing: Point of Care Testing Glucose POC 118 MDM Narrative Medical decision making narrative: 73-year-old female resident of assisted care facility with new hypoxia noted by staff. Afebrile, sirs screen negative. Lungs clear. No respiratory distress. No obvious head or face trauma. Chest x-ray to my view shows elevated right hemidiaphragm, no obvious infiltrate, radiology over-read pending. EKG sinus with no obvious ischemic changes. Initial troponin negative. GFR favorable, CTA chest PE protocol ordered, to be performed. Interval repeat troponin pending. Signed out to Dr Martinez Patient is independently evaluated, lab studies and imaging studies are reviewed. CBC is unremarkable Chemistries are reassuring Initial and repeat at 2 hour troponin is undetectable BNP is not significantly elevated Imaging: CT PE study shows no evidence of pulmonary embolism, significant pulmonary infiltrates of note was chronically elevated right hemidiaphragm. Chest x-ray shows no acute disease Records reviewed: Hospital discharge July of 2023 for similar complaints reviewed Discussion; 73-year-old woman with multiple chronic medical problems and failure to thrive. No specific diagnosis of COPD but does have a diagnosis of hypoxic respiratory failure. At this point she has not showing signs of pneumonia, pulmonary embolism, pneumothorax, acute coronary syndrome, STEMI, congestive heart failure with volume overload. Screen for COVID influenza and RSV is negative. No evidence of other infection appreciated no signs of sepsis. At rest and reclining oxygen saturations dropped to 88% on room air, they do increase with deeper breathing. She has been evaluated for sleep apnea and follow up regarding this is not scheduled until April. She states that symptoms got worse after a COVID and influenza vaccination a couple of days ago. Reviewed all findings with the patient and discussed options. She would much prefer to go home. Again she is at assisted living, does use a walker. We will see if she is able to get up and ambulate with a walker safely in the emergency department with anticipation of discharge back to her assisted living facility Patient is successfully has passed her ambulatory trial and we will be helped back to her assisted living facility Discharge Plan Departure Patient Disposition: Home Clinical Impression: Weakness, Chronic hypoxic respiratory failure Activity Restrictions/Additional Instructions: Thank you for coming in today I am sorry that you are still so weak. It is important that you do make herself get up a couple of times a day and use your walker to get a bit of activity. Your workup in the emergency department does not show significant bacterial or viral infection no signs of sepsis, no evidence of pulmonary embolism, pneumonia, heart attack, heart failure or alternate explanations for things that would require hospitalization If you find that you are getting worse or develop any new symptoms, please feel free to return to the emergency department for further evaluation. Prescriptions: No Action Januvia 100 mg tablet 100 mg PO DAILY Sleep Aid (doxylamine) 25 mg tablet PO (DME) DISABLED PARKING PLACARD See Rx Instructions .Route .MEDSUPPLY Qty: 1 0RF Rx Instructions: 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 levothyroxine 137 mcg tablet 137 mcg PO DAILY Jardiance 10 mg tablet 10 mg PO DAILY metformin 500 mg tablet 500 mg PO BID sitagliptin 100 mg tablet 100 mg PO DAILY clonidine HCl 0.1 mg tablet 0.2 mg PO BEDTIME Qty: 60 3RF gabapentin 300 mg capsule See Rx Instructions .ROUTE .COMPLEX Rx Instructions: 300 mg po qam and 600 mg po qpm; (DME) Depends Incontinence supplies XL See Rx Instructions .Route .MEDSUPPLY Qty: 100 3RF Rx Instructions: for three times daily changes (DME) Prevail Plus pads 6 See Rx Instructions .Route .MEDSUPPLY Qty: 90 3RF Rx Instructions: As directed oxybutynin chloride 5 mg tablet 5 mg PO BID Qty: 60 2RF allopurinol 300 mg tablet See Rx Instructions .ROUTE .COMPLEX Qty: 90 2RF Dose Instruction: TAKE 1 TABLET BY MOUTH DAILY FOR GOUT Rx Instructions: TAKE 1 TABLET BY MOUTH DAILY FOR GOUT atorvastatin 40 mg tablet 40 mg PO BEDTIME Qty: 90 0RF bisacodyl 10 mg suppository 10 mg UT DAILY PRN (Reason: constipation) Qty: 30 0RF simethicone 80 mg tablet,chewable See Rx Instructions PO 6XD Qty: 30 0RF Rx Instructions: 160mg orally x 6hours prn for GAS pain; divalproex 250 mg tablet,delayed release (DR/EC) 250 mg PO DAILY Qty: 30 3RF Rx Instructions: Take 250mg in addition to 2 x 500mg tablets for total dose 1250mg. divalproex [Depakote ER] 500 mg tablet extended release 24 hr See Rx Instructions PO BEDTIME Qty: 60 3RF Rx Instructions: take 2 x500mg along with 250mg tablet [place] 1250mg. olanzapine 5 mg tablet 5 mg PO BEDTIME Qty: 90 1RF magnesium 250 mg tablet 250 mg PO DAILY Qty: 10 0RF Referrals: Alina Corcoran MD [Primary Care Provider] - Stand Alone Forms: Patient Portal/API
--- NOTE | 2024-02-03 06:11 | DI.RAD.S_ITS ---
PROCEDURE: XR CHEST 1V INDICATIONS: dyspnea TECHNIQUE: One view of the chest was acquired. COMPARISON: [facility], CT, CT ANGIO CHEST PE PROTOCOL, 02/03/2024, 7:33. [facility], CT, CT CHEST ABD PEL WO CON, 07/29/2023, 10:20. [facility], CR, XR CHEST 1V, 07/23/2023, 15:49. [facility], CR, XR CHEST 1V, 08/02/2023, 2:50. FINDINGS: Surgical changes and devices: None. Lungs and pleura: An incomplete inspiratory result is noted, causing a crowded appearance to the lung markings. No focal infiltrates are seen. No pneumothorax or significant pleural effusions are seen. Chronic elevation the right hemidiaphragm is seen. Mediastinum: The cardiac contours are within normal limits. The aorta demonstrates calcification and tortuosity. Bones and chest wall: Age-appropriate bony degenerative changes are seen. No suspicious bony lesions. Overlying soft tissues appear unremarkable. IMPRESSION: Limited portable chest examination, without a significant cardiopulmonary abnormality identified. Note: No significant discrepancy from the preliminary report. Dictated by: Stephane Meza M.D. on 02/03/2024 at 8:04 Approved by: Stephane Meza M.D. on 02/03/2024 at 8:05
--- NOTE | 2024-02-03 06:15 | EKG_ITS ---
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
[2024-02-03 06:36] LABS: NT-proBNP (BNP-Adult 18+) 480 pg/mL (<125); Troponin I < 0.012 ng/mL (0.01-0.034)
[2024-02-03 07:08] LABS: Influenza A - CEPHEID Flu A NEGATIVE (NEGATIVE); Influenza B - CEPHEID Flu B NEGATIVE (NEGATIVE); Respiratory Syncytial Virus Negative (Negative)
[2024-02-03] MEDS: ALBUTEROL 2.5 MG/3 ML NEB (ADULT) INH (07:11)
[2024-02-03 07:13] LABS: COVID-19 CEPHEID 4-PLEX PCR Negative (Negative)
--- NOTE | 2024-02-03 07:24 | DI.CT.S_ITS ---
PROCEDURE: CT ANGIO CHEST PE PROTOCOL INDICATIONS: new hypoxia, [facility] resident TECHNIQUE: After the administration of intravenous contrast, 2 mm thick sections acquired from the pulmonary apices to the posterior costophrenic angles. 3-dimensional maximum intensity projection (MIP) coronal and sagittal reformats were then acquired through the thorax. For radiation dose reduction, the following was used: automated exposure control, adjustment of mA and/or kV according to patient size. COMPARISON: [facility], CR, XR CHEST 1V, 08/02/2023, 2:50. FINDINGS: Image quality: Diagnostic. Pulmonary arteries: Pulmonary arteries are normal in size, and demonstrate no intraluminal filling defects to suggest central pulmonary embolism. Lower Neck: No enlarged lymph nodes. Thyroid: No thyroid nodules which require sonographic follow up, per consensus guidelines. Axillae: No enlarged lymph nodes. Chest Wall: Unremarkable. Bones: Unremarkable. Lungs and Pleura: Chronic elevation of right hemidiaphragm with associated right basilar atelectasis. Minimal left basilar atelectasis. Heart: Heart size is normal. No pericardial effusion. Thoracic Vessels: No aortic aneurysm. Mediastinum and Isabel: No enlarged lymph nodes. Esophagus: No wall thickening. No hiatal hernia. Upper Abdomen: Visualized upper abdomen solid organs and bowel loops appear normal. IMPRESSION: 1. No acute pulmonary emboli. 2. Chronic elevation of right hemidiaphragm with associated right basilar atelectasis. 3. Minimal left basilar atelectasis. Dictated by: Charles Cherry M.D. on 02/03/2024 at 8:26 Approved by: Charles Cherry M.D. on 02/03/2024 at 8:30
[2024-02-03 09:15] LABS: Appearance Urine UA CLEAR; Bilirubin Urine UA NEGATIVE (NEGATIVE); Color Urine UA YELLOW; Glucose Urine UA 3+ g/dL (Negative); Ketones Urine UA 1+ (NEGATIVE); Leukocyte Esterase Urine UA NEGATIVE (NEGATIVE); Nitrite Urine UA NEGATIVE (Negative); Occult Blood Urine UA NEGATIVE (Negative); Protein Urine UA 1+ (Negative); Urobilinogen Urine UA 0.2 E.U./dL (0.2)
[2024-02-03 09:16] LABS: pH Urine UA 5.5 (4.5-8.0)
[2024-02-03 09:22] LABS: RBC Urine 0-1/HPF (0-5/HPF); Urine Volume 10mL (spun); WBC Urine 0-1/HPF (0-5/HPF)
[2024-02-03 09:23] LABS: Bacteria Urine Few (2-10); Culture Indicated Urine Specimen Cultured; Squamous Epithelial Cell Urine 5-10 /HPF (0-5/HPF)
[2024-02-03 09:37] LABS: Troponin I < 0.012 ng/mL (0.01-0.034)
== END 2024-02-03 10:48 | disposition home or self-care (01) ==
PROVIDERS: Emergency Medicine; Emergency Provider Emergency Medicine; Family Provider Family Medicine; PCP Family Medicine
DX: J96.11 Chronic respiratory failure with hypoxia (principal); R53.1 Weakness; Z11.52 Encounter for screening for COVID-19
CPT/HCPCS: 0241U; 36415; 71045; 71275; 80053; 81001; 82962; 83880; 84484; 85025; 87086; 93005; 94640; 99284; J7613

== ENCOUNTER → 2024-06-25 06:28 | Outpatient (ROUT) | payer MEDICARE, SELFPAY ==
[2023-08-24 16:41] VITALS: BMI 43.4
[2024-06-25 07:49] LABS: Add Manual Diff / Slide Review NO; Basophils Absolute Auto 100 /uL (0-100); Basophils Percent Auto 0.9 % (0-2); Eosinophils Absolute Auto 200 /uL (0-450); Eosinophils Percent Auto 2.8 % (2-4); Hemoglobin 13.1 g/dL (12.0-16.0); Lymphocytes Absolute Auto 3500 /uL (1100-4500); Lymphocytes Percent Auto 50.1 % (25-40); Mean Corpuscular HGB Conc 33.7 % (30-36); Mean Corpuscular Hemoglobin 33.8 PG (26-34); Mean Corpuscular Volume 100.2 fL (80-100); Monocytes Absolute Auto 500 /uL (0-900); Monocytes Percent Auto 7.1 % (3-14); Neutrophils Absolute Auto 2700 /uL (1500-7000); Neutrophils Percent Auto 39.1 % (50-75); Platelet Count 154 X10^3/uL (150-400); Red Blood Cell Count 3.89 X10^6/uL (4.0-5.2); Red Cell Distribution Width 16.7 % (11.6-14.8)
[2024-06-25 08:05] LABS: Alanine Aminotransferase 51 IU/L (<35); Albumin 4.2 g/dL (3.5-5.0); Albumin Globulin Ratio 1.7 (1.0-2.8); Alkaline Phosphatase 93 U/L (38-126); Aspartate Aminotransferase 54 IU/L (14-36); BUN Creatinine Ratio 19.6 (6-22); Bilirubin Total 0.4 mg/dL (0.2-1.3); Blood Urea Nitrogen 18 mg/dL (7-17); Calcium 9.6 mg/dL (8.4-10.2); Carbon Dioxide 26 mmol/L (22-32); Chloride 100 mmol/L (98-107); Estimated Glomerular Filt Rate > 60 mL/min (>60); Globulin 2.5 g/dL (1.7-4.1); Glucose 217 mg/dL (80-110); HEMOLYSIS < 15 (0-50); Potassium 3.9 mmol/L (3.4-5.1); Sodium 138 mmol/L (137-145); Total Protein 6.7 g/dL (6.3-8.2)
[2024-06-26 01:10] LABS: Valproic Acid (Depakene) Total 82 ug/mL (50-100)
== END ==
PROVIDERS: Family Provider Family Medicine; PCP Family Medicine; Visit Provider Psychiatry & Neurology Psychiatry
DX: G25.89 Other specified extrapyramidal and movement disorders (principal); T50.905A Adverse effect of unspecified drugs, medicaments and biological substances, initial encounter; F31.75 Bipolar disorder, in partial remission, most recent episode depressed; Z79.899 Other long term (current) drug therapy
CPT/HCPCS: 36415; 80053; 80164; 85025

== ENCOUNTER → 2024-08-20 10:26 | Outpatient (CLI) | payer MEDICARE, SELFPAY ==
[2023-08-24 16:41] VITALS: BMI 43.4
[2024-08-20 12:31] LABS: Hemoglobin A1C% w Est Avg Glu 7.4 % (4.0-6.0)
== END ==
PROVIDERS: Family Provider Family Medicine; PCP Family Medicine; Referring Provider Psychiatry & Neurology Psychiatry; Visit Provider Psychiatry & Neurology Psychiatry
DX: E11.9 Type 2 diabetes mellitus without complications (principal)
CPT/HCPCS: 36415; 83036

== ENCOUNTER → 2024-09-09 13:12 | Outpatient (CLI) | payer MEDICARE, SELFPAY ==
[2023-08-24 16:41] VITALS: BMI 43.4
--- NOTE | 2024-09-12 10:31 | DIAB.MNT ---
Initial Diabetes Medical Nutrition Therapy Assessment Name: Madhav Coats V Date: 09/09/24 Time: 120-2p Dx: Type II Diabetes Provider: Jewell Madhav presents for initial Dm visit. Endorses diagnosis 4 yeras ago. Visit was cut short due to late arrival. Endorses 7# loss over 3 weeks that was intentional. Moved to [facility] assisted living October 2023. Does not like the veggies there. has some canned foods, ie chx noodle soup and other soups. Endorses 2 desserts per day at lunch and dinner. Eats in her room. Keeps yogurt and ensure on hand to supplement when she does not like the food served. Previously lived with her daughter. States she worries about foot amputations. Plans to have a medical instrument cable fabricator check her feet. States her main concern today is learning how to control how much sugar I eat. Diet recall: 730a: Raisin bran 1.5c with milk, +/- a biscuit and 1c juice -- does not like the eggs at [facility] overcooked sn: oyster crackers grazing 12p: ensure OR Bahraini yogurt with juice sn: Bahraini yogurt 530p: sweet and sour chicken, does not like rice OR cheeseburger with some fries and juice sn: nothing or oyster crackers water 12-24oz juice 24oz per day coffee with milk Anthropometrics: Ht: 62 Wt: 224# 07/2024 Physical Activity: infrequent chair yoga or games at [facility] Self-Monitoring Blood Glucose: None, but open to checks. Does not have supplies per report. Diabetes Medications: 500mg Metformin BID 10mg Jardiance 100mg Januvia Pertinent Labs: HgA1c: 7.9% 07/2024 Past Medical History: (Last Reviewed 08/02/23 @ 07:26 by Wale Allen MD) Ankle pain (2007) Anxiety (1994) Bipolar 1 disorder, depressed, partial remission Bipolar 1 disorder, mixed, full remission Bipolar disorder (1989) Bipolar I disorder, most recent episode depressed, severe without psychotic features Cataract (2011) Chicken pox COVID-19 CTS (carpal tunnel syndrome) (1987) Depression (1962) DM type 2 (diabetes mellitus, type 2) Foot pain (~2002) bottom of foot Fractures (2007) Hayfever (~1989) off and on Hyperlipidemia Hypertension Hypothyroidism Measles Peripheral neuropathy (2013) Psychosis RLS (restless legs syndrome) (1999) Sleep apnea (08/2015) BiPap Urinary incontinence Nutrition Rx: Plate Method Nutrition Diagnosis: - Excessive CHO intake r/t nutrition knowledge deficit aeb diet recall - Undesirable food choices r/t nutrition knowledge deficit aeb juice intake and desserts BID Intervention: This participant was very receptive. Provided appropriate educational handouts. Discussed the following topics: Completed intake assessment. Discussed barriers to care. Potential for self-monitoring Plate Method, impact of macronutrients on blood sugar Recommended servings for carbohydrates at meals and snacks Brainstormed appropriate meal/snack ideas based on food preferences Role of physical activity Created SMART goals for patient self-care and success. Goals: Ask [facility] if they have Cheerios instead of Raisin Bran Avoid other carb options with breakfast cereal Try pb toast for breakfast Avoid juice Try to cut down on dessert Try protein snack, ie cheese, pb, or cashews Follow-up: SUSI DE LA ROSA follow-up in 3-[address] to message PCP workgroup regarding SMBG supplies. Lyn Maharaj RDN, GRACIEES Certified Diabetes Care and Pocket Secretary Assembler P: [phone] Thank you for this referral
== END ==
LOC: DIET 13:13
PROVIDERS: Family Provider Family Medicine; PCP Family Medicine; Referring Provider Family Medicine
DX: E11.9 Type 2 diabetes mellitus without complications (principal); Z79.84 Long term (current) use of oral hypoglycemic drugs; Z71.3 Dietary counseling and surveillance
CPT/HCPCS: 97802

== ENCOUNTER 2024-09-28 14:06 | Observation (INO) | payer MEDICARE, MEDICAID, SELFPAY ==
[2023-08-24 16:41] VITALS: BMI 43.4
[2024-09-28] VITALS (15 sets, daily range): BP systolic 103–125; BP diastolic 53–64; PULSE 60–75; RESP 17–24; TEMP 36.1–36.6; O2SAT 90–98; BMI 38.7; BMI 38.2
--- NOTE | 2024-09-28 14:18 | EKG_ITS ---
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
--- NOTE | 2024-09-28 14:18 | DI.RAD.S_ITS ---
PROCEDURE: XR CHEST 1V INDICATIONS: Chest Pain TECHNIQUE: One view of the chest was acquired. COMPARISON: [facility], CR, XR CHEST 1V, 02/03/2024, 6:11. [facility], CR, XR CHEST 1V, 08/02/2023, 2:50. FINDINGS: Surgical changes and devices: None. Lungs and pleura: Lungs are hypoinflated but clear. No pleural effusions or pneumothorax. Mediastinum: Mediastinal contours appear normal. Heart size is normal. Bones and chest wall: No suspicious bony lesions. Overlying soft tissues appear unremarkable. IMPRESSION: No acute cardiopulmonary abnormality is seen. Dictated by: Lakia Bolton M.D. on 09/28/2024 at 14:37 Approved by: Lakia Bolton M.D. on 09/28/2024 at 14:37
--- NOTE | 2024-09-28 14:24 | ED.WEAKNESS ---
HPI - Weakness General Chief complaint: Weakness Stated complaint: Weakness Time Seen by Provider: 09/28/24 14:09 Source: patient and EMS Mode of arrival: EMS History of Present Illness HPI Narrative: 74-year-old patient resident of nursing facility at [facility], type 2 diabetes, bipolar, hypertension, hypothyroidism, presents with with weakness gradually increasing over the past 5 days unable to get out of bed. Patient reports chronic leg swelling but denies fever, chills, body aches, chest pain, shortness of breath, dyspnea on exertion, leg pain, leg swelling, urinary complaints, cough, runny nose, or sore throat. Other than what is stated 14 point review of system is negative. Related Data Home Medications ?Medication ?Instructions ?Recorded ?Confirmed levothyroxine 137 mcg tablet 137 mcg PO DAILY 12/03/23 07/21/24 metformin 500 mg tablet 500 mg PO BID 12/03/23 07/21/24 doxylamine succinate 25 mg tablet mg PO 01/01/24 07/21/24 (Sleep Aid (doxylamine)) sitagliptin phosphate 100 mg 100 mg PO DAILY 01/01/24 07/21/24 tablet (Januvia) biotin 1 mg capsule 1 mg PO DAILY 03/03/24 07/21/24 empagliflozin 10 mg tablet 10 mg PO DAILY 03/03/24 07/21/24 nystatin 100,000 unit/gram topical 1 applic topical DAILY 03/03/24 07/21/24 cream polyethylene glycol 3350 17 17 g PO BID 03/03/24 07/21/24 gram/dose oral powder (Miralax) acetaminophen 325 mg tablet mg PO 04/21/24 07/21/24 magnesium oxide 250 mg PO DAILY 04/21/24 07/21/24 nystatin 100,000 unit/gram topical topical DAILY 04/21/24 07/21/24 ointment clonidine HCl 0.2 mg tablet mg PO 07/21/24 07/21/24 olanzapine 10 mg tablet 10 mg PO ONCE PM 07/21/24 07/21/24 Previous Rx's ?Medication ?Instructions ?Recorded DISABLED PARKING PLACARD #1 ea 11/24/22 Depends Incontinence supplies #100 ea 03/15/23 Prevail Plus pads #90 ea 03/15/23 oxybutynin chloride 5 mg tablet 5 mg PO BID #60 tabs 06/15/23 clonidine HCl 0.1 mg tablet 0.2 mg (2 x 0.1 mg) PO BEDTIME #60 07/09/23 tabs magnesium 250 mg tablet 250 mg PO DAILY #10 tabs 07/24/23 allopurinol 300 mg tablet See Rx Instructions .Route 08/01/23 .COMPLEX #90 tabs atorvastatin 40 mg tablet 40 mg PO BEDTIME #90 tabs 12/17/23 bisacodyl 10 mg rectal suppository 10 mg KS DAILY PRN constipation 12/17/23 #30 ea simethicone 80 mg chewable tablet See Rx Instructions PO 6XD #30 tabs 12/17/23 ropinirole 0.25 mg tablet 0.5 mg (2 x 0.25 mg) PO DAILY #180 04/21/24 tabs olanzapine 10 mg-samidorphan 10 mg 1 tab PO DAILY #30 tabs 06/24/24 tablet gabapentin 300 mg capsule See Rx Instructions .Route 07/28/24 .COMPLEX #120 caps lancets #100 ea 07/29/24 divalproex 500 mg tablet,extended See Rx Instructions PO BEDTIME #60 08/21/24 release 24 hr (Depakote ER) tabs glucose monitor #1 ea 09/12/24 glucose test strips #100 ea 09/12/24 divalproex 250 mg tablet,extended 250 mg PO DAILY #30 tabs 09/19/24 release 24 hr Allergies Allergy/AdvReac Type Severity Reaction Status Date / Time Sulfa (Sulfonamide Allergy Mild RASH Verified 09/28/24 14:12 Antibiotics) haloperidol (HALOPERIDOL) Allergy Unknown Verified 09/28/24 14:12 lithium (LITHIUM) Allergy Unknown Verified 09/28/24 14:12 risperidone (RISPERIDONE) Allergy Unknown Verified 09/28/24 14:12 lidocaine AdvReac Intermediate gait Verified 09/28/24 14:12 instability perphenazine AdvReac uncontrolled Verified 09/28/24 14:12 hand shaking Review of Systems Review of Systems ROS Unobtainable: All systems reviewed & are unremarkable except as noted in HPI and below Patient History Medical History Bipolar 1 disorder, depressed, partial remission Psychosis COVID-19 Bipolar 1 disorder, mixed, full remission Hyperlipidemia DM type 2 (diabetes mellitus, type 2) Bipolar I disorder, most recent episode depressed, severe without psychotic features Bipolar disorder (1989) Fractures (2007) Foot pain (~2002) Ankle pain (2007) Peripheral neuropathy (2013) Hayfever (~1989) Sleep apnea (08/2015) Hypertension Hypothyroidism Urinary incontinence Cataract (2011) Chicken pox Measles CTS (carpal tunnel syndrome) (1987) RLS (restless legs syndrome) (1999) Anxiety (1994) Depression (196) Surgical History Anesthesia complication History of surgery (04/2008) History of carpal tunnel repair (~1997) Family History Child Age: 52 Arthritis Mother Heart disease Family history of fraternal twins Family history of identical twins Levin gestation with first Social History marital status: number of children: 2 household members: children lives independently: Yes caregiver/support person: No housing: house pets and animals: No education level: high school occupational status: unemployed leisure activities: reading and volunteer work other: walk,garden,visit friends,jainism,word puzzles seatbelt use: always water heater temp set < 120 deg: Yes working smoke detector in home: Yes fire extinguisher in home: Yes carbon monox detector in home: Yes Smoking Status: Never smoker second hand exposure: No alcohol intake: current substance use type: does not use during the past year weight has: other well-balanced diet: rarely or never daily servings fruits/ve-1 caffeine: Yes eating out: 1-3 times/week frequency: 3-4 times per week duration: 15-30 minutes/day Smoking Status: Never smoker alcohol intake frequency: holidays/special occasions only Exam Narrative Exam Narrative: GENERAL: [74] year old patient appears stated age. Well-developed patient, in mild distress. HEAD: Atraumatic. Normocephalic. EYES: Pupils equal round and reactive. Extraocular motions intact. No scleral icterus. No injection or drainage. ENT: Nose without bleeding, purulent drainage. Throat without erythema, tonsillar hypertrophy or exudate. Airway patent. NECK: Trachea midline. Non tender CARDIOVASCULAR: Regular rate and rhythm without murmurs, gallops, or rubs. RESPIRATORY: Clear to auscultation. Breath sounds equal bilaterally. No wheezes, rales, or rhonchi. GASTROINTESTINAL: Abdomen soft, non-tender, nondistended. EXTREMITIES: No edema or joint tenderness. BACK: Nontender without deformity or crepitance. No flank tenderness. NEURO: AOx3. GCS 15 nonfocal nonfocal neuro exam SKIN: No rash or erythema of visible areas Initial Vital Signs Initial Vital Signs: Vital Signs Temperature 97.8 F 09/28/24 14:12 Pulse Rate 71 09/28/24 14:12 Respiratory Rate 20 09/28/24 14:12 Blood Pressure 125/56 L 09/28/24 14:12 Pulse Oximetry 90 L 09/28/24 14:12 Oxygen Delivery Method Room Air 09/28/24 14:12 Course Orders Ordered: ED Orders 09/28/24 14:18 XR chest 1V Stat EKG-12 Lead Stat 09/28/24 14:32 Complete Blood Count AUTO DIFF Stat Comprehensive Metabolic Panel Stat Lactate (Lactic Acid) Stat Lipase Stat Magnesium Stat NT-proBNP (BNP-Adult 18+) Stat PTT Partial Thromboplastin William Stat Procalcitonin Stat Prothrombin Time INR Stat Troponin & CK Cardiac Panel Stat 09/28/24 14:47 Venous Blood Gas STAT 09/28/24 14:49 CT angio chest PE protocol Stat 09/28/24 15:00 Blood Culture Stat 09/28/24 15:01 Covid-19 + FLU A/B + RSV - PCR Stat 09/28/24 15:20 Venous Blood Gas Routine Discontinued Medications Aspirin (Aspirin 81 Mg Chew Tab) 324 mg PO NOW ONE Stop: 09/28/24 14:19 Vital Signs Vital signs: Vital Signs - 8 hr 09/28/24 14:12 09/28/24 14:16 09/28/24 14:30 Temperature 97.8 F Pulse Rate 71 72 70 Respiratory Rate 20 24 22 Blood Pressure 125/56 L Pulse Oximetry 90 L 91 91 Oxygen Delivery Method Room Air 09/28/24 14:33 09/28/24 14:33 Temperature Pulse Rate 70 Respiratory Rate 19 Blood Pressure 115/57 L Pulse Oximetry 91 Oxygen Delivery Method MDM - Weakness Lab Data 09/28/24 14:32 09/28/24 14:32 Labs: Lab Results 09/28/24 09/28/24 09/28/24 Range/Units 14:32 15:01 15:20 WBC 7.9 (4.5-11.0) X10^3/uL RBC 4.17 (4.0-5.2) X10^6/uL Hgb 14.0 (12.0-16.0) g/dL Hct 41.6 (36-46) % MCV 99.9 (80-100) fL MCH 33.5 (26-34) PG MCHC 33.6 (30-36) % RDW 15.9 H (11.6-14.8) % Plt Count 136 L (150-400) X10^3/uL Neut % (Auto) 41.9 L (50-75) % Lymph % (Auto) 47.7 H (25-40) % Stone % (Auto) 6.5 (3-14) % Eos % (Auto) 3.0 (2-4) % Baso % (Auto) 0.9 (0-2) % Neut # (Auto) 3300 (7660-4408) /uL Lymph # (Auto) 3800 (8515-7126) /uL Stone # (Auto) 500 (0-900) /uL Eos # (Auto) 200 (0-450) /uL Baso # (Auto) 100 (0-100) /uL PT 10.7 (9.4-12.5) SECONDS INR 0.9 (0.9-1.3) APTT 36 (25.1-36.5) SECONDS VBG pH 7.38 (7.33-7.43) VBG pCO2 56.3 H (45-50) mmHg VBG pO2 55 H (35-45) mmHg VBG HCO3 33 H (24-28) mmol/L VBG Total CO2 32 H (24-29) mmol/L VBG O2 Saturation 87 H (70-75) % VBG Base Excess 6.2 H (0-4) mmol/L FiO2 % 21.0 % % Sodium 140 (137-145) mmol/L Potassium 4.3 (3.4-5.1) mmol/L Chloride 103 (98-107) mmol/L Carbon Dioxide 30 (22-32) mmol/L BUN 21 H (7-17) mg/dL Creatinine 0.88 (0.52-1.04) mg/dL Estimated GFR > 60 (>60) mL/min BUN/Creatinine Ratio 23.9 H (6-22) Glucose 161 H (70-99) mg/dL Lactate 1.9 (0.7-2.1) mmol/L Calcium 9.8 (8.4-10.2) mg/dL Magnesium 1.6 (1.6-2.3) mg/dL Total Bilirubin 0.5 (0.2-1.3) mg/dL AST 49 H (14-36) IU/L ALT 50 H (<35) IU/L Alkaline Phosphatase 76 (38-126) U/L Total Creatine Kinase 52 (30-135) U/L Troponin I < 0.012 (0.01-0.034) ng/mL NT-Pro-B Natriuret Pep 125 H (<125) pg/mL Total Protein 6.9 (6.3-8.2) g/dL Albumin 4.1 (3.5-5.0) g/dL Globulin 2.8 (1.7-4.1) g/dL Albumin/Globulin Ratio 1.5 (1.0-2.8) Lipase 63 (23-300) U/L Procalcitonin 0.094 (<0.5) ng/mL SARS-CoV-2 (PCR) Negative (Negative) Influenza A (RT-PCR) Flu a negative (NEGATIVE) Influenza B (RT-PCR) Flu b negative (NEGATIVE) RSV (PCR) Negative (Negative) Imaging Data Chest x-ray: Radiologist Impression: atient: Madhav Coats V MR#: [id number] : 1950 Acct:[id number] Age/Sex: 74 / F Date of Service: 09/28/24 Loc: ED Accession Number: [id number] Procedure: XR chest 1V Ordering Provider: Farhan Strange D.O. PROCEDURE: XR CHEST 1V INDICATIONS: Chest Pain TECHNIQUE: One view of the chest was acquired. COMPARISON: [facility], , XR CHEST 1V, 02/03/2024, 6:11. [facility], , XR CHEST 1V, 08/02/2023, 2:50. FINDINGS: Surgical changes and devices: None. Lungs and pleura: Lungs are hypoinflated but clear. No pleural effusions or pneumothorax. Mediastinum: Mediastinal contours appear normal. Heart size is normal. Bones and chest wall: No suspicious bony lesions. Overlying soft tissues appear unremarkable. IMPRESSION: No acute cardiopulmonary abnormality is seen. Dictated by: Lakia Bolton M.D. on 09/28/2024 at 14:37 Approved by: Lakia Bolton M.D. on 09/28/2024 at 14:37 CT scan - chest: Radiologist Impression: [address] [id number] [address] Scan Report Signed Patient: Madhav Coats V MR#: [id number] : 1950 Acct:[id number] Age/Sex: 74 / F Date of Service: 09/28/24 Loc: ED Accession Number: [id number] Procedure: CT angio chest PE protocol Ordering Provider: Farhan Strange D.O. PROCEDURE: CT ANGIO CHEST PE PROTOCOL INDICATIONS: weakness and increasing SOB TECHNIQUE: After the administration of intravenous contrast, 2 mm thick sections acquired from the pulmonary apices to the posterior costophrenic angles. 3-dimensional maximum intensity projection (MIP) coronal and sagittal reformats were then acquired through the thorax. For radiation dose reduction, the following was used: automated exposure control, adjustment of mA and/or kV according to patient size. COMPARISON: [facility], CT, CT ANGIO CHEST PE PROTOCOL, 02/03/2024, 7:33. FINDINGS: Image quality: Diagnostic. Pulmonary arteries: Pulmonary arteries are normal in size, and demonstrate no intraluminal filling defects to suggest central pulmonary embolism. Lower Neck: No enlarged lymph nodes. Thyroid: No thyroid nodules which require sonographic follow up, per consensus guidelines. Axillae: No enlarged lymph nodes. Chest Wall: Unremarkable. Bones: Unremarkable. Lungs and Pleura: No pneumothorax or pleural effusions. There is ground-glass opacity within the dependent left lower lobe and atelectasis within the right lower lobe. Heart: Heart size is normal. No pericardial effusion. Thoracic Vessels: No aortic aneurysm. Mediastinum and Isabel: No enlarged lymph nodes. Esophagus: No wall thickening. No hiatal hernia. Upper Abdomen: Visualized upper abdomen solid organs and bowel loops appear normal. IMPRESSION: No pulmonary embolus. Findings concerning for a left lower lobe infectious process. Dictated by: Lakia Bolton M.D. on 09/28/2024 at 14:46 Approved by: Lakia Bolton M.D. on 09/28/2024 at 14:51 ECG Data Interpretation: NSR HR 70 KS 152 QRS [address]-t wave change MDM Narrative Medical decision making narrative: Vital signs nurse triage note medication list previous ER visits in all imaging studies reviewed. Patient given Rocephin and Zithromax here blood cultures obtained.-white count is 7.9 hemoglobin 14 platelet 136 glucose 161 BUN 21 creatinine 0.88 lactic acid 1.9 troponin less than 0.012 Procal 125 procalcitonin 0.094. EKG showed normal sinus rhythm heart rate of [address] T wave changes. Differential diagnosis include PE STEMI NSTEMI CHF COPD pneumonia UTI. O2 sat here ranging from 90-91% on room air. Case discussed with Dr. Boyce who has graciously accepted the patient for inpatient admissionn Discharge Plan Departure Patient Disposition: Admitted As Inpatient Clinical Impression: Pneumonia Qualifiers: Pneumonia type: due to Pneumococcus Laterality: left Lung location: lower lobe of lung Qualified Code(s): J13 - Pneumonia due to Streptococcus pneumoniae
[2024-09-28 14:40] LABS: Add Manual Diff / Slide Review NO; Basophils Absolute Auto 100 /uL (0-100); Basophils Percent Auto 0.9 % (0-2); Eosinophils Absolute Auto 200 /uL (0-450); Hematocrit 41.6 % (36-46); Lymphocytes Absolute Auto 3800 /uL (1100-4500); Lymphocytes Percent Auto 47.7 % (25-40); Mean Corpuscular HGB Conc 33.6 % (30-36); Mean Corpuscular Hemoglobin 33.5 PG (26-34); Mean Corpuscular Volume 99.9 fL (80-100); Monocytes Absolute Auto 500 /uL (0-900); Monocytes Percent Auto 6.5 % (3-14); Neutrophils Absolute Auto 3300 /uL (1500-7000); Neutrophils Percent Auto 41.9 % (50-75); Platelet Count 136 X10^3/uL (150-400); Red Blood Cell Count 4.17 X10^6/uL (4.0-5.2); Red Cell Distribution Width 15.9 % (11.6-14.8); White Blood Cell Count 7.9 X10^3/uL (4.5-11.0)
--- NOTE | 2024-09-28 14:45 | PC.NURSE ---
patient lungs sounds clear and equal bilaterally and throughout
[2024-09-28 14:47] LABS: INR 0.9 (0.9-1.3); Prothrombin Time 10.7 SECONDS (9.4-12.5)
--- NOTE | 2024-09-28 14:49 | DI.CT.S_ITS ---
PROCEDURE: CT ANGIO CHEST PE PROTOCOL INDICATIONS: weakness and increasing SOB TECHNIQUE: After the administration of intravenous contrast, 2 mm thick sections acquired from the pulmonary apices to the posterior costophrenic angles. 3-dimensional maximum intensity projection (MIP) coronal and sagittal reformats were then acquired through the thorax. For radiation dose reduction, the following was used: automated exposure control, adjustment of mA and/or kV according to patient size. COMPARISON: [facility], CT, CT ANGIO CHEST PE PROTOCOL, 02/03/2024, 7:33. FINDINGS: Image quality: Diagnostic. Pulmonary arteries: Pulmonary arteries are normal in size, and demonstrate no intraluminal filling defects to suggest central pulmonary embolism. Lower Neck: No enlarged lymph nodes. Thyroid: No thyroid nodules which require sonographic follow up, per consensus guidelines. Axillae: No enlarged lymph nodes. Chest Wall: Unremarkable. Bones: Unremarkable. Lungs and Pleura: No pneumothorax or pleural effusions. There is ground-glass opacity within the dependent left lower lobe and atelectasis within the right lower lobe. Heart: Heart size is normal. No pericardial effusion. Thoracic Vessels: No aortic aneurysm. Mediastinum and Isabel: No enlarged lymph nodes. Esophagus: No wall thickening. No hiatal hernia. Upper Abdomen: Visualized upper abdomen solid organs and bowel loops appear normal. IMPRESSION: No pulmonary embolus. Findings concerning for a left lower lobe infectious process. Dictated by: Lakia Bolton M.D. on 09/28/2024 at 14:46 Approved by: Lakia Bolton M.D. on 09/28/2024 at 14:51
[2024-09-28 14:50] LABS: PTT Partial Thromboplastin Tim 36 SECONDS (25.1-36.5)
[2024-09-28 14:51] LABS: Lactate (Lactic Acid) 1.9 mmol/L (0.7-2.1)
[2024-09-28 14:53] LABS: Alanine Aminotransferase 50 IU/L (<35); Albumin 4.1 g/dL (3.5-5.0); Albumin Globulin Ratio 1.5 (1.0-2.8); Alkaline Phosphatase 76 U/L (38-126); Aspartate Aminotransferase 49 IU/L (14-36); BUN Creatinine Ratio 23.9 (6-22); Bilirubin Total 0.5 mg/dL (0.2-1.3); Blood Urea Nitrogen 21 mg/dL (7-17); Calcium 9.8 mg/dL (8.4-10.2); Carbon Dioxide 30 mmol/L (22-32); Chloride 103 mmol/L (98-107); Creatine Kinase 52 U/L (30-135); Estimated Glomerular Filt Rate > 60 mL/min (>60); Globulin 2.8 g/dL (1.7-4.1); Glucose 161 mg/dL (70-99); HEMOLYSIS 42 (0-50); Lipase 63 U/L (23-300); Magnesium 1.6 mg/dL (1.6-2.3); Potassium 4.3 mmol/L (3.4-5.1); Sodium 140 mmol/L (137-145); Total Protein 6.9 g/dL (6.3-8.2)
[2024-09-28 15:04] LABS: NT-proBNP (BNP-Adult 18+) 125 pg/mL (<125); Troponin I < 0.012 ng/mL (0.01-0.034)
[2024-09-28 15:23] LABS: Base Excess VBG 6.2 mmol/L (0-4); HCO3 VBG 33 mmol/L (24-28); Oxygen Saturation VBG 87 % (70-75); PCO2 VBG 56.3 mmHg (45-50); PO2 VBG 55 mmHg (35-45); Total CO2 VBG 32 mmol/L (24-29); pH VBG 7.38 (7.33-7.43)
[2024-09-28 15:32] LABS: Procalcitonin 0.094 ng/mL (<0.5)
[2024-09-28 15:47] LABS: Influenza A - CEPHEID Flu A NEGATIVE (NEGATIVE); Influenza B - CEPHEID Flu B NEGATIVE (NEGATIVE); Respiratory Syncytial Virus Negative (Negative)
[2024-09-28 15:50] LABS: COVID-19 CEPHEID 4-PLEX PCR Negative (Negative)
[2024-09-28] MEDS: cefTRIAXone 1,000 MG in SODIUM CHLORIDE 0.9% 100 ML 200 MG IV (16:08)
[2024-09-28] MEDS: AZITHROMYCIN 500 MG in DEXTROSE 5% IN WATER 250 ML 250 MG IV (16:54)
--- NOTE | 2024-09-28 18:14 | PM.HP.1 ---
History of Present Illness History of Present Illness Date Patient Seen: 09/28/24 Time Patient Seen: 18:14 Date of Onset of Symptoms: 09/22/24 Chief complaint: Weakness Narrative: Patient is a 74-year-old female patient of Dr. Corcoran with history of hypothyroidism, gout, manic depression, who I am cross covering for who presents for weakness over the last 6 days. Patient states that she feels like she just had progressive weakness. She has had no fevers no chills no cough. No runny nose. No one else around her spent sick. She has had no headaches no visual changes numbness or tingling. The weakness is generalized and not consistent to 1 side. She has no other significant new changes or complaints. She denies any chest pain except with swallowing over the last 2 days. She is noticed that it hurts a little bit. Feels like it might be trying to go down the wrong tube. This is not been sent happens consistently. Only over the last few days. Otherwise no change. Patient has had no abdominal pain. No nausea no vomiting no urinary complaints. No change in her bowel movements. Otherwise has been feeling well. [facility] Medical History Bipolar 1 disorder, depressed, partial remission Psychosis COVID-19 Bipolar 1 disorder, mixed, full remission Hyperlipidemia DM type 2 (diabetes mellitus, type 2) Bipolar I disorder, most recent episode depressed, severe without psychotic features Bipolar disorder (1989) Fractures (2007) Foot pain (~2002) Ankle pain (2007) Peripheral neuropathy (2013) Hayfever (~1989) Sleep apnea (08/2015) Hypertension Hypothyroidism Urinary incontinence Cataract (2011) Chicken pox Measles CTS (carpal tunnel syndrome) (1987) RLS (restless legs syndrome) (1999) Anxiety (1994) Depression (1961) Surgical History Anesthesia complication History of surgery (04/2008) History of carpal tunnel repair (~1997) Family History Child Age: 52 Arthritis Mother Heart disease Family history of fraternal twins Family history of identical twins Levin gestation with first Social History marital status: number of children: 2 household members: children lives independently: Yes caregiver/support person: No housing: house pets and animals: No education level: high school occupational status: unemployed leisure activities: reading and volunteer work other: walk,garden,visit friends,adventism,word puzzles seatbelt use: always water heater temp set < 120 deg: Yes working smoke detector in home: Yes fire extinguisher in home: Yes carbon monox detector in home: Yes Smoking Status: Never smoker second hand exposure: No alcohol intake: current substance use type: does not use during the past year weight has: other well-balanced diet: rarely or never daily servings fruits/ve-1 caffeine: Yes eating out: 1-3 times/week frequency: 3-4 times per week duration: 15-30 minutes/day Meds Home Medications and Allergies Home Medications ?Medication ?Instructions ?Recorded ?Confirmed ?Type DISABLED P[employer] #1 ea 11/24/22 07/21/24 Rx Depends Incontinence supplies #100 ea 03/15/23 07/21/24 Rx Prevail Plus pads #90 ea 03/15/23 07/21/24 Rx oxybutynin chloride 5 mg tablet 5 mg PO BID #60 tabs 06/15/23 07/21/24 Rx clonidine HCl 0.1 mg tablet 0.2 mg (2 x 0.1 mg) PO BEDTIME #60 07/09/23 07/21/24 Rx tabs magnesium 250 mg tablet 250 mg PO DAILY #10 tabs 07/24/23 07/21/24 Rx allopurinol 300 mg tablet See Rx Instructions .Route 08/01/23 07/21/24 Rx .COMPLEX #90 tabs levothyroxine 137 mcg tablet 137 mcg PO DAILY 12/03/23 07/21/24 History metformin 500 mg tablet 500 mg PO BID 12/03/23 07/21/24 History atorvastatin 40 mg tablet 40 mg PO BEDTIME #90 tabs 12/17/23 07/21/24 Rx bisacodyl 10 mg rectal suppository 10 mg DC DAILY PRN constipation 12/17/23 07/21/24 Rx #30 ea simethicone 80 mg chewable tablet See Rx Instructions PO 6XD #30 tabs 12/17/23 07/21/24 Rx doxylamine succinate 25 mg tablet mg PO 01/01/24 07/21/24 History (Sleep Aid (doxylamine)) sitagliptin phosphate 100 mg 100 mg PO DAILY 01/01/24 07/21/24 History tablet (Januvia) biotin 1 mg capsule 1 mg PO DAILY 03/03/24 07/21/24 History empagliflozin 10 mg tablet 10 mg PO DAILY 03/03/24 07/21/24 History nystatin 100,000 unit/gram topical 1 applic topical DAILY 03/03/24 07/21/24 History cream polyethylene glycol 3350 17 17 g PO BID 03/03/24 07/21/24 History gram/dose oral powder (Miralax) acetaminophen 325 mg tablet mg PO 04/21/24 07/21/24 History magnesium oxide 250 mg PO DAILY 04/21/24 07/21/24 History nystatin 100,000 unit/gram topical topical DAILY 04/21/24 07/21/24 History ointment ropinirole 0.25 mg tablet 0.5 mg (2 x 0.25 mg) PO DAILY #180 04/21/24 07/21/24 Rx tabs olanzapine 10 mg-samidorphan 10 mg 1 tab PO DAILY #30 tabs 06/24/24 07/21/24 Rx tablet clonidine HCl 0.2 mg tablet mg PO 07/21/24 07/21/24 History olanzapine 10 mg tablet 10 mg PO ONCE PM 07/21/24 07/21/24 History gabapentin 300 mg capsule See Rx Instructions .Route 07/28/24 07/28/24 Rx .COMPLEX #120 caps lancets #100 ea 07/29/24 Rx divalproex 500 mg tablet,extended See Rx Instructions PO BEDTIME #60 08/21/24 Rx release 24 hr (Depakote ER) tabs glucose monitor #1 ea 09/12/24 Rx glucose test strips #100 ea 09/12/24 Rx divalproex 250 mg tablet,extended 250 mg PO DAILY #30 tabs 09/19/24 Rx release 24 hr Allergies Allergy/AdvReac Type Severity Reaction Status Date / Time Sulfa (Sulfonamide Allergy Mild RASH Verified 09/28/24 14:12 Antibiotics) haloperidol (HALOPERIDOL) Allergy Unknown Verified 09/28/24 14:12 lithium (LITHIUM) Allergy Unknown Verified 09/28/24 14:12 risperidone (RISPERIDONE) Allergy Unknown Verified 09/28/24 14:12 lidocaine AdvReac Intermediate gait Verified 09/28/24 14:12 instability perphenazine AdvReac uncontrolled Verified 09/28/24 14:12 hand shaking Review of Systems Review of Systems Narrative: Discussed with the patient. Negative except for above Exam Vital Signs (past 8 hours): - 09/28/24 14:12 09/28/24 14:16 09/28/24 14:30 Temperature 97.8 F Pulse Rate 71 72 70 Respiratory Rate 20 24 22 Blood Pressure 125/56 L Pulse Oximetry 90 L 91 91 Oxygen Delivery Method Room Air 09/28/24 14:33 09/28/24 14:33 09/28/24 15:00 Temperature Pulse Rate 70 70 Respiratory Rate 19 24 Blood Pressure 115/57 L Pulse Oximetry 91 91 Oxygen Delivery Method 09/28/24 15:30 09/28/24 15:52 09/28/24 15:52 Temperature Pulse Rate 68 66 Respiratory Rate 22 20 Blood Pressure 112/53 L Pulse Oximetry 91 92 Oxygen Delivery Method 09/28/24 15:54 09/28/24 15:54 09/28/24 16:00 Temperature Pulse Rate 65 Respiratory Rate 21 Blood Pressure 112/54 L 112/55 L Pulse Oximetry 90 L Oxygen Delivery Method 09/28/24 16:00 09/28/24 16:30 09/28/24 16:30 Temperature Pulse Rate 65 63 Respiratory Rate 20 19 Blood Pressure 119/58 L Pulse Oximetry 91 91 Oxygen Delivery Method 09/28/24 17:00 09/28/24 17:01 09/28/24 17:01 Temperature Pulse Rate 65 65 Respiratory Rate 23 24 Blood Pressure 103/55 L Pulse Oximetry 90 L 92 Oxygen Delivery Method Oxygen Delivery Method Room Air Narrative Exam Narrative: Alert subdued elderly female in no acute distress. Mucous membranes mildly dry. Neck supple without adenopathy. Lungs are with basilar crackles can not really say right is greater than left. No rhonchi no retractions. Heart is regular rate and rhythm without murmurs clicks rubs or gallops abdomen is soft positive bowel sounds nontender extremities without cyanosis clubbing edema. Neurologic exam is nonfocal Objective Labs 09/28/24 14:32 09/28/24 14:32 Labs: Laboratory Results - last 24 hr 09/28/24 09/28/24 09/28/24 14:32 15:01 15:20 WBC 7.9 RBC 4.17 Hgb 14.0 Hct 41.6 MCV 99.9 MCH 33.5 MCHC 33.6 RDW 15.9 H Plt Count 136 L Neut % (Auto) 41.9 L Lymph % (Auto) 47.7 H [place] % (Auto) 6.5 Eos % (Auto) 3.0 Baso % (Auto) 0.9 Neut # (Auto) 3300 Lymph # (Auto) 3800 [place] # (Auto) 500 Eos # (Auto) 200 Baso # (Auto) 100 PT 10.7 INR 0.9 APTT 36 VBG pH 7.38 VBG pCO2 56.3 H VBG pO2 55 H VBG HCO3 33 H VBG Total CO2 32 H VBG O2 Saturation 87 H VBG Base Excess 6.2 H FiO2 % 21.0 % Sodium 140 Potassium 4.3 Chloride 103 Carbon Dioxide 30 BUN 21 H Creatinine 0.88 Estimated GFR > 60 BUN/Creatinine Ratio 23.9 H Glucose 161 H Lactate 1.9 Calcium 9.8 Magnesium 1.6 Total Bilirubin 0.5 AST 49 H ALT 50 H Alkaline Phosphatase 76 Total Creatine Kinase 52 Troponin I < 0.012 NT-Pro-B Natriuret Pep 125 H Total Protein 6.9 Albumin 4.1 Globulin 2.8 Albumin/Globulin Ratio 1.5 Lipase 63 Procalcitonin 0.094 SARS-CoV-2 (PCR) Negative Influenza A (RT-PCR) Flu a negative Influenza B (RT-PCR) Flu b negative RSV (PCR) Negative Assessment & Plan Assessment & Plan narrative: Right-sided pneumonia. Chest x-ray shows pneumonia. No other definitive abnormality or infection defined. Urine is abnormal unclear if infected. Culture will be done. Patient was started on Zithromax and Rocephin. Patient states that she has had some issues with swallowing over the last 2 days but given that this started 6 days ago maybe more related to her weakness and suspect this is more community-acquired pneumonia. Not aspiration. But will keep that in mind and watch. It is on the right side and possible position but will hold anaerobe coverage for now. Dehydration. Mild to moderate. Will give normal saline tonight. Maybe part of her weakness. Will see how she responds. Electrolytes are unremarkable. Recheck in a.m.. Elevated BNP. Not sure what this represents. She does have some crackles on exam but clinically she looks more dehydrated. Ketones in her urine. Mildly dry moist mucous membranes. Will give fluid see how she does. Certainly if things get worse things can change. Re-evaluate in a.m.. Abnormal urine/possible UTI. No symptoms of UTI but possible other possible cause of infection. Should be covered with antibiotics currently on. Will follow up cultures. Weakness. Probably secondary to infection. Certainly no definitive focal area of issues. Will watch closely. Hold PT tomorrow but will start on Sunday. Will see how she does. History of manic depression with psychotic issues followed by Dr. Eason. Continue her usual meds and will follow. History of restless leg syndrome. Clonidine is being used and Requip. Will continue. Seems to be tolerating well. Hyperlipidemia. Continue atorvastatin. Will follow from there. Type 2 diabetes. Blood sugars 180 today. Could be related to infection. Control has been okay with her last hemoglobin A1c adequately controlled. Will read start her metformin. And begin sliding scale. History of gout. Continue allopurinol. DVT prophylaxis will place on Lovenox. Continue SCDs. Code status full code. Disposition. Patient will probably be here at least 2 days. Follow-up of cultures see how she does over the next 24 hours responding to antibiotics. We will begin physical therapy maybe later tomorrow or the next day. Anticipate 72 hours or more here . Discussed with the patient. 75 minutes spent with the patient chart review discussion with nursing dictation orders Time-Based Coding :: [TOTAL MINUTES] spent with patient and on the chart (including review of chart, obtaining history, exam, reviewing outside data, placing orders, documenting exam and treatment plan, and counseling patient) on [DATE].
[2024-09-28] MEDS: SODIUM CHLORIDE 0.9% 1,000 ML 100 ML IV (18:51)
[2024-09-28] MEDS: GABAPENTIN 300 MG CAPSULE 900 MG PO (21:32)
[2024-09-28] MEDS: OLANZapine 2.5 MG TABLET 10 MG PO (21:32)
[2024-09-28] MEDS: OXYBUTYNIN 5 MG TABLET PO (21:32)
[2024-09-28] MEDS: DIVALPROEX ER 250 MG TAB 1250 MG PO (21:33)
[2024-09-28] MEDS: ATORVASTATIN 20 MG TABLET 40 MG PO (21:34)
[2024-09-28 21:35] LABS: Appearance Urine UA CLEAR; Bilirubin Urine UA NEGATIVE (NEGATIVE); Color Urine UA YELLOW; Glucose Urine UA 3+ g/dL (Negative); Ketones Urine UA TRACE (NEGATIVE); Leukocyte Esterase Urine UA NEGATIVE (NEGATIVE); Nitrite Urine UA NEGATIVE (Negative); Occult Blood Urine UA NEGATIVE (Negative); Protein Urine UA TRACE (Negative); Urobilinogen Urine UA 0.2 E.U./dL (0.2)
[2024-09-28] MEDS: allopurinoL 100 MG TABLET 300 MG PO (21:41)
[2024-09-28 21:45] LABS: pH Urine UA 5.5 (4.5-8.0)
[2024-09-28 21:46] LABS: Bacteria Urine Few (2-10); Culture Indicated Urine Specimen Cultured; RBC Urine None Seen (0-5/HPF); Squamous Epithelial Cell Urine 0-1 /HPF (0-5/HPF); Urine Volume 10mL (spun); WBC Urine 30-100/HPF (0-5/HPF)
[2024-09-29] MEDS: SODIUM CHLORIDE 0.9% 1,000 ML 100 ML IV ×3 (03:38→23:45)
[2024-09-29 06:30] LABS: Add Manual Diff / Slide Review NO; Basophils Absolute Auto 0 /uL (0-100); Basophils Percent Auto 0.4 % (0-2); Eosinophils Absolute Auto 300 /uL (0-450); Eosinophils Percent Auto 4.1 % (2-4); Hematocrit 39.8 % (36-46); Hemoglobin 13.2 g/dL (12.0-16.0); Lymphocytes Absolute Auto 3000 /uL (1100-4500); Lymphocytes Percent Auto 44.9 % (25-40); Mean Corpuscular HGB Conc 33.1 % (30-36); Mean Corpuscular Hemoglobin 33.3 PG (26-34); Mean Corpuscular Volume 100.7 fL (80-100); Monocytes Absolute Auto 500 /uL (0-900); Monocytes Percent Auto 6.8 % (3-14); Neutrophils Absolute Auto 2900 /uL (1500-7000); Neutrophils Percent Auto 43.8 % (50-75); Platelet Count 124 X10^3/uL (150-400); Red Blood Cell Count 3.95 X10^6/uL (4.0-5.2); Red Cell Distribution Width 16.1 % (11.6-14.8); White Blood Cell Count 6.7 X10^3/uL (4.5-11.0)
[2024-09-29 06:42] LABS: Alanine Aminotransferase 40 IU/L (<35); Albumin 3.6 g/dL (3.5-5.0); Albumin Globulin Ratio 1.4 (1.0-2.8); Alkaline Phosphatase 75 U/L (38-126); Aspartate Aminotransferase 37 IU/L (14-36); BUN Creatinine Ratio 22.7 (6-22); Bilirubin Total 0.4 mg/dL (0.2-1.3); Blood Urea Nitrogen 17 mg/dL (7-17); Calcium 9.1 mg/dL (8.4-10.2); Carbon Dioxide 29 mmol/L (22-32); Chloride 105 mmol/L (98-107); Estimated Glomerular Filt Rate > 60 mL/min (>60); Globulin 2.5 g/dL (1.7-4.1); Glucose 111 mg/dL (70-99); HEMOLYSIS < 15 (0-50); Potassium 3.9 mmol/L (3.4-5.1); Sodium 140 mmol/L (137-145); Total Protein 6.1 g/dL (6.3-8.2)
[2024-09-29 07:50] VITALS: O2SAT 92
[2024-09-29 08:00] VITALS: BP 134/65; PULSE 66; RESP 16; TEMP 36.5; O2SAT 92
[2024-09-29] MEDS: LEVOTHYROXINE 137 MCG TABLET PO (08:13)
[2024-09-29] MEDS: OXYBUTYNIN 5 MG TABLET PO ×2 (08:13→20:43)
[2024-09-29] MEDS: SITAGLIPTIN 50 MG TABLET 100 MG PO (08:14)
[2024-09-29] MEDS: polyethylene glycoL 3350 17 GM POWD.PACK PO (08:15)
[2024-09-29] MEDS: ROPINIROLE 0.25 MG TABLET 0.5 MG PO (08:15)
[2024-09-29] MEDS: MAGNESIUM OXIDE 400 MG TABLET 200 MG PO (08:15)
[2024-09-29] MEDS: ENOXAPARIN 40 MG/0.4 ML SYRINGE SUBCUT (08:16)
[2024-09-29] MEDS: cefTRIAXone 2,000 MG in SODIUM CHLORIDE 0.9% 100 ML 200 MG IV (15:20)
[2024-09-29] MEDS: AZITHROMYCIN 500 MG in DEXTROSE 5% IN WATER 250 ML 250 MG IV (15:58)
--- NOTE | 2024-09-29 16:22 | PT.IIE ---
Surgical History (Last Reviewed 08/02/23 @ 07:26 by Wale Allen MD) Anesthesia complication History of carpal tunnel repair (~1997) History of surgery (04/2008) Medical History (Last Reviewed 08/02/23 @ 07:26 by Wale Allen MD) Ankle pain (2007) Anxiety (1994) Bipolar 1 disorder, depressed, partial remission Bipolar 1 disorder, mixed, full remission Bipolar disorder (1989) Bipolar I disorder, most recent episode depressed, severe without psychotic features Cataract (2011) Chicken pox COVID-19 CTS (carpal tunnel syndrome) (1987) Depression (196) DM type 2 (diabetes mellitus, type 2) Foot pain (~2002) Fractures (2007) Hayfever (~1989) Hyperlipidemia Hypertension Hypothyroidism Measles Peripheral neuropathy (2013) Psychosis RLS (restless legs syndrome) (1999) Sleep apnea (08/2015) Urinary incontinence Physical Therapy Inpatient Evaluation/Re-Eval M1 PT/OT-IP Prior Functional Status Start: 09/29/24 16:12 Freq: NEEDED Status: Active Protocol: Document 09/29/24 16:13 KJ (Rec: 09/29/24 16:22 KJ Desktop) Medical Review Prior Functional Status Medical History Yes Reviewed Mobility and Gait Pt states she was ambulating indep w/out assistive device at AL facility Activities of Daily Pt states she was able to care for self at AL facility Living and IADL's Prior Functional Pt reports ongoing tremor due to medication side Level (Other details effects ) Social History Living Arrangements Assisted Living M2 PT-IP Current Condition Start: 09/29/24 16:12 Freq: NEEDED Status: Active Protocol: Document 09/29/24 16:13 KJ (Rec: 09/29/24 16:22 KJ Desktop) Physical Therapy Current Condition Current Condition Evaluation Date 09/29/24 Treatment Diagnosis Impaired mobility, poor activity tolerance Onset Date 09/21/22 M3 PT-IP Subjective Start: 09/29/24 16:12 Freq: NEEDED Status: Active Protocol: Document 09/29/24 16:13 KJ (Rec: 09/29/24 16:22 KJ Desktop) Subjective Physical Therapy Visit Type Type Initial Evaluation Visit Start Time 15:36 Visit Stop Time 16:04 Physical Therapy Visit Comments Patient Comments Pt reports being very weak. She does not like having her LEs touched due to swelling which causes pain, however they are not painful when standing and walking Patient Goals return to AL facility Therapy Pain Assessment Pain When Pain Assessed At Rest Pain Present Pain Present Pain Reported Location Bilateral Foot Description Aching Pain Behaviors Facial Grimacing Pain Management Modification of Treatment,Re-positioning Techniques M4 PT-IP Mobility and Gait Start: 09/29/24 16:12 Freq: NEEDED Status: Active Protocol: Document 09/29/24 16:13 KJ (Rec: 09/29/24 16:22 KJ Desktop) PT-Bed Mobility Assessment Rolling Type of Rolling Roll to Left Level of Assist Moderate Assistance Supine to Sit Supine to Sit Moderate Assistance Sit to Supine Sit to Supine Moderate Assistance PT-Transfer Assessment Comments Mobility Comments Pt had poor sitting balance, therefore standing was not attempted. Pt reported dizziness when initially sitting up. BP remained stable PT-Balance Assessment Sitting Balance and Reactions Static Sitting Poor Balance Ability Dynamic Sitting Poor Balance Ability M5 PT-IP Objective Assessments Start: 09/29/24 16:12 Freq: NEEDED Status: Active Protocol: Document 09/29/24 16:13 KJ (Rec: 09/29/24 16:22 KJ Desktop) Orientation Orientation/Cognition Level of Alertness Alert Orientation Name,Age,Birthday Language Function No Deficits Noted Ability Gross Range of Motion Upper Extremity ROM Assessment Within Functional Limits Lower Extremity ROM Assessment Within Functional Limits Strength Upper Extremity Strength Assessment Left Impaired Shoulder decreased strength bilat 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 Lower Extremity Strength Assessment Within Functional Limits Ankle ankle plantar/dorsifllex WNL M6 PT-IP Treatment Start: 09/29/24 16:12 Freq: NEEDED Status: Active Protocol: Document 09/29/24 16:13 KJ (Rec: 09/29/24 16:22 KJ Desktop) Physical Therapy Treatment Exercises Exercises Ankle Pumps Education Education Provided Safety Other Treatments Other Treatment Educated on progression of therapy Performed M7 PT-IP Assessment and Plan Start: 09/29/24 16:12 Freq: NEEDED Status: Active Protocol: Document 09/29/24 16:13 KJ (Rec: 09/29/24 16:22 KJ Desktop) PT Summary Assessment and Plan Potential Rehabilitation Fair Potential Status of Condition Evolving at Evaluation Summary Impairments Pain,Strength,Balance Progress Towards Slow Progress due to Activity Tolerance Goals Assessment Summary Pt hospitalized with pneumonia is very weak and dependent for mobility. She will benefit from skilled therapy to improve strength and endurance to regain previous functional mobility Goals Bed Mobility Goal Independent Transfer Goal Standby Assistance Gait Goal Standby Assistance Gait Distance 50 Days to Meet Goals 6 Frequency of Treatment Frequency Of Once a Day Treatment Treatment Plan Physical Therapy Bed Mobility Training,Transfer Training,Gait Training, Treatment Plan Therapeutic Exercise Other If able to maintain at least 4/5 sitting balance, will Recommendations and progress to standing. Next Treatment Focus Recommendations To Nursing Amount of Assist 2 Person Assist Needed Discharge Recommendations PT Discharge SNF Rehab Recommendations - PT assist +2
--- NOTE | 2024-09-29 16:55 | PM.PN.IH.1 ---
Subjective Subjective Interval history: The pt reports feeling improved today compared to yesterday. She states that she is stronger, despite not yet getting out of bed. She denies any SOB, cough, chest pain. Exam Vital Signs (past 8 hours): Oxygen Delivery Method Room Air Oxygen Flow Rate 0 Narrative Exam Narrative: Gen: NAD, sitting comfortably in bed, appears her usual self CV: RRR, no murmurs Resp: clear to auscultation bilaterally, no crackles or wheezes Abd: soft, nontender, nondistended Ext: trace edema Objective Labs 09/29/24 05:30 09/29/24 05:30 Labs: Laboratory Results - last 24 hr 09/28/24 09/29/24 21:26 05:30 WBC 6.7 RBC 3.95 L Hgb 13.2 Hct 39.8 MCV 100.7 H MCH 33.3 MCHC 33.1 RDW 16.1 H Plt Count 124 L Neut % (Auto) 43.8 L Lymph % (Auto) 44.9 H [place] % (Auto) 6.8 Eos % (Auto) 4.1 H Baso % (Auto) 0.4 Neut # (Auto) 2900 Lymph # (Auto) 3000 [place] # (Auto) 500 Eos # (Auto) 300 Baso # (Auto) 0 Sodium 140 Potassium 3.9 Chloride 105 Carbon Dioxide 29 BUN 17 Creatinine 0.75 Estimated GFR > 60 BUN/Creatinine Ratio 22.7 H Glucose 111 H Calcium 9.1 Total Bilirubin 0.4 AST 37 H ALT 40 H Alkaline Phosphatase 75 Total Protein 6.1 L Albumin 3.6 Globulin 2.5 Albumin/Globulin Ratio 1.4 Urine Color Yellow Urine Appearance Clear Urine pH 5.5 Ur Specific [place] 1.010 Urine Protein Trace H Urine Glucose (UA) 3+ H Urine Ketones Trace H Urine Occult Blood Negative Urine Nitrate Negative Urine Bilirubin Negative Urine Urobilinogen 0.2 Ur Leukocyte Esterase Negative Urine RBC None seen Urine WBC 30-100/hpf H Ur Squamous Epith Cells 0-1 /hpf Urine Bacteria Few (2-10) H Ur Culture Indicated? Specimen cultured Vol Urine Centrifuged 10ml (spun) PFS Medical History Bipolar 1 disorder, depressed, partial remission Psychosis COVID-19 Bipolar 1 disorder, mixed, full remission Hyperlipidemia DM type 2 (diabetes mellitus, type 2) Bipolar I disorder, most recent episode depressed, severe without psychotic features Bipolar disorder (1989) Fractures (2007) Foot pain (~2002) Ankle pain (2007) Peripheral neuropathy (2013) Hayfever (~1989) Sleep apnea (08/2015) Hypertension Hypothyroidism Urinary incontinence Cataract (2011) Chicken pox Measles CTS (carpal tunnel syndrome) (1987) RLS (restless legs syndrome) (1999) Anxiety (1994) Depression (1961) Surgical History Anesthesia complication History of surgery (04/2008) History of carpal tunnel repair (~1997) Family History Child Age: 52 Arthritis Mother Heart disease Family history of fraternal twins Family history of identical twins Levin gestation with first Social History marital status: number of children: 2 household members: children lives independently: Yes caregiver/support person: No housing: house pets and animals: No education level: high school occupational status: unemployed leisure activities: reading and volunteer work other: walk,garden,visit friends,rastafari,word puzzles seatbelt use: always water heater temp set < 120 deg: Yes working smoke detector in home: Yes fire extinguisher in home: Yes carbon monox detector in home: Yes Smoking Status: Never smoker second hand exposure: No alcohol intake: current substance use type: does not use during the past year weight has: other well-balanced diet: rarely or never daily servings fruits/ve-1 caffeine: Yes eating out: 1-3 times/week frequency: 3-4 times per week duration: 15-30 minutes/day Assessment & Plan Assessment & Plan narrative: Pt is a 74yo woman with HTN, hypothyroidism, DM type 2, bipolar disorder with hx of psychosis who presented with weakness. Found to have pneumonia on CXR. 1) Right-sided pneumonia: No hypoxia, symptomatically feeling improved - Continue Ceftriaxone and Azithromycin - F/U cultures 2) Dehydration: Mild to moderate - Continue mIVF until PO intake of fluids improves 3) Weakness: Likely secondary to infection - PT consulted 4) Bipolar disorder with hx of psychosis: Stable. Pt typically with flat affect. Followed by Dr Eason - Continue home medications 5) RLS: - Continue home Clonidine and Requip 6) DM type 2: - Hold home Metformin - Insulin sliding scale - ACHS blood sugars 7) Hx of gout: - Continue home Allopurinol 8) Hyperlipidemia: - Continue home statin DVT ppx: Lovenox Diet: Carb control Code: DNR Dispo: Pending continued improvement with PT. Time-Based Coding :: [TOTAL MINUTES] spent with patient and on the chart (including review of chart, obtaining history, exam, reviewing outside data, placing orders, documenting exam and treatment plan, and counseling patient) on [DATE]. Quality VTE Deep Vein Thrombosis/Pulmonary Embolism Present on Admission: No [employer] Manager Document charge(s): Yes Charge Codes Subsequent inpatient/observation care: [id number]
[2024-09-29] MEDS: INSULIN LISPRO 100 UNIT/ML 3ML VIAL SUBCUT (17:10)
[2024-09-29] MEDS: ACETAMINOPHEN 325 MG TABLET 650 MG PO (17:16)
[2024-09-29 20:08] VITALS: BP 129/64; PULSE 81; RESP 16; TEMP 36; O2SAT 93
[2024-09-29 20:42] VITALS: BP 129/64; PULSE 82
[2024-09-29] MEDS: cloNIDine 0.1 MG TABLET 0.2 MG PO (20:42)
[2024-09-29] MEDS: GABAPENTIN 300 MG CAPSULE 900 MG PO (20:42)
[2024-09-29] MEDS: ATORVASTATIN 20 MG TABLET 40 MG PO (20:43)
[2024-09-29] MEDS: OLANZapine 2.5 MG TABLET 10 MG PO (20:43)
[2024-09-29] MEDS: DIVALPROEX ER 250 MG TAB 1250 MG PO (20:43)
[2024-09-29 22:00] VITALS: O2SAT 95
[2024-09-30 07:00] VITALS: BP 133/68; PULSE 67; RESP 15; TEMP 36.1; O2SAT 93; O2SAT 94
[2024-09-30] MEDS: allopurinoL 100 MG TABLET 300 MG PO (08:23)
[2024-09-30] MEDS: ROPINIROLE 0.25 MG TABLET 0.5 MG PO (08:23)
[2024-09-30] MEDS: SITAGLIPTIN 50 MG TABLET 100 MG PO (08:23)
[2024-09-30] MEDS: LEVOTHYROXINE 137 MCG TABLET PO (08:23)
[2024-09-30] MEDS: MAGNESIUM OXIDE 400 MG TABLET 200 MG PO (08:24)
[2024-09-30] MEDS: OXYBUTYNIN 5 MG TABLET PO ×2 (08:24→21:39)
[2024-09-30] MEDS: GABAPENTIN 300 MG CAPSULE PO (08:24)
[2024-09-30] MEDS: ENOXAPARIN 40 MG/0.4 ML SYRINGE SUBCUT (08:24)
--- NOTE | 2024-09-30 08:24 | PM.PN.IH.1 ---
Subjective Subjective Interval history: The pt reports feeling overall okay this morning. She did not yet get out of bed with PT. She reports ongoing cough, requests cough medication. No SOB. Exam Vital Signs (past 8 hours): - 09/30/24 07:00 Pulse Oximetry 93 Oxygen Delivery Method Nasal Cannula Oxygen Flow Rate 1 Oxygen Delivery Method Nasal Cannula Oxygen Flow Rate 1 Narrative Exam Narrative: Gen: NAD, sitting comfortably in bed, appears her usual self CV: RRR, no murmurs Resp: clear to auscultation bilaterally, no crackles or wheezes Abd: soft, nontender, nondistended Ext: 1+ edema Objective Labs 09/29/24 05:30 09/29/24 05:30 [facility] Medical History Bipolar 1 disorder, depressed, partial remission Psychosis COVID-19 Bipolar 1 disorder, mixed, full remission Hyperlipidemia DM type 2 (diabetes mellitus, type 2) Bipolar I disorder, most recent episode depressed, severe without psychotic features Bipolar disorder (1989) Fractures (2007) Foot pain (~2002) Ankle pain (2007) Peripheral neuropathy (2013) Hayfever (~1989) Sleep apnea (08/2015) Hypertension Hypothyroidism Urinary incontinence Cataract (2011) Chicken pox Measles CTS (carpal tunnel syndrome) (1987) RLS (restless legs syndrome) (1999) Anxiety (1994) Depression (1961) Surgical History Anesthesia complication History of surgery (04/2008) History of carpal tunnel repair (~1997) Family History Child Age: 52 Arthritis Mother Heart disease Family history of fraternal twins Family history of identical twins Levin gestation with first Social History marital status: number of children: 2 household members: children lives independently: Yes caregiver/support person: No housing: house pets and animals: No education level: high school occupational status: unemployed leisure activities: reading and volunteer work other: walk,garden,visit friends,scientology,word puzzles seatbelt use: always water heater temp set < 120 deg: Yes working smoke detector in home: Yes fire extinguisher in home: Yes carbon monox detector in home: Yes second hand exposure: No alcohol intake: current substance use type: does not use during the past year weight has: other well-balanced diet: rarely or never daily servings fruits/ve-1 caffeine: Yes eating out: 1-3 times/week frequency: 3-4 times per week duration: 15-30 minutes/day Assessment & Plan Assessment & Plan narrative: Pt is a 74yo woman with HTN, hypothyroidism, DM type 2, bipolar disorder with hx of psychosis who presented with weakness. Found to have pneumonia on CXR. 1) Right-sided pneumonia: No hypoxia, continued symptomatic improvement - Continue Ceftriaxone and Azithromycin - F/U cultures 2) Dehydration: Mild to moderate. PO intake improved. - D/C mIVF 3) Weakness: Likely secondary to infection - PT consulted 4) Bipolar disorder with hx of psychosis: Stable. Pt typically with flat affect. Followed by Dr Eason - Continue home medications 5) RLS: - Continue home Clonidine and Requip 6) DM type 2: - Hold home Metformin - Insulin sliding scale - ACHS blood sugars 7) Hx of gout: - Continue home Allopurinol 8) Hyperlipidemia: - Continue home statin DVT ppx: Lovenox Diet: Carb control Code: DNR Dispo: Pending continued improvement with PT. Anticipate d/c tomorrow. Time-Based Coding :: [TOTAL MINUTES] spent with patient and on the chart (including review of chart, obtaining history, exam, reviewing outside data, placing orders, documenting exam and treatment plan, and counseling patient) on [DATE]. Quality VTE Deep Vein Thrombosis/Pulmonary Embolism Present on Admission: No IH PROFEE Soil Conservation Aide Document charge(s): Yes Charge Codes Subsequent inpatient/observation care: [id number]
[2024-09-30] MEDS: INSULIN LISPRO 100 UNIT/ML 3ML VIAL SUBCUT ×3 (08:25→17:05)
--- NOTE | 2024-09-30 10:15 | PT.IPTN ---
Physical Therapy Treatment Note M2 PT-IP Current Condition Start: 09/29/24 16:12 Freq: NEEDED Status: Active Protocol: Document 09/29/24 16:13 KJ (Rec: 09/29/24 16:22 KJ Desktop) Physical Therapy Current Condition Current Condition Evaluation Date 09/29/24 Treatment Diagnosis Impaired mobility, poor activity tolerance Onset Date 09/21/22 M3 PT-IP Subjective Start: 09/29/24 16:12 Freq: NEEDED Status: Active Protocol: Document 09/30/24 10:15 AB (Rec: 09/30/24 12:36 AB [id number]) Subjective Physical Therapy Visit Type Type Treatment Note Visit Start Time 10:15 Visit Stop Time 10:45 Number of FIRE TECHNOLOGY INSTRUCTOR Visits 0 Physical Therapy Visit Comments Patient Comments agreeable to do PT M4 PT-IP Mobility and Gait Start: 09/29/24 16:12 Freq: NEEDED Status: Active Protocol: Document 09/30/24 10:15 AB (Rec: 09/30/24 12:36 AB [id number]) PT-Bed Mobility Assessment Supine to Sit Supine to Sit Maximum Assistance,1 Person Assistance,Head of Bed Elevated,Bedrails Scooting Scooting to Edge of Maximum Assistance Bed PT-Transfer Assessment Sit to and From Stand Sit to and from Minimal Assistance,Moderate Assistance,1 Person Stand Assistance,Use of Upper Extremities Equipment Transfer Assistive Gait Belt,Front Wheeled Walker Device Orthotic/Prosthetic No Devices or Brace: Transfers Transfer Destination Bedside Commode Transfer Technique Stand Step Pivot Transfer Ability Level of Assist Minimal Assistance,Moderate Assistance,1 Person Assistance,Use of Upper Extremities Comments Mobility Comments pt in bed and agreeable to do PT. completed supine to sit max A and max cues. required max A for scooting to EOB. sit to stand mod A and started to take steps using FWW mod Abut needed to use the toilet and with uncontrolled voiding. instructed pt to sit back on EOB . positioned bedside commode next to pt. sit to stand from EOB mod A and step transfer to commode using fWW min to mod A and cues. pt required assist with hygiene care and brief management. sit to stand from the commode min A and was able to ambulate to the chair using fWW min A ~ 5 ft. pt agreed to ambulate again. sit to stand from the chair min A and ambulated in room using FWW ~ 10 ft min A and cues. presents with slower evan and smaller steps towards end of ambulation. pt sat back on chair. positioned pt on the chair. call light and table placed within reach. Gait Assessment Gait Gait Assistance Minimum Assistance Required: Distance (Feet) 10 Able to Maintain Yes Weight Bearing Status During Gait Assistive Devices Assistive Device Gait Belt,Front Wheeled Walker Orthotic/Prosthetic No Devices or Brace: Gait Deviations General Gait Pattern Decreased Stride Length,Decreased Feet Clearance,Step- to Gait Factors Limiting Gait Function Factors Limiting Decreased Activity Tolerance,Decreased Strength, Gait Function Difficulty Following Directions,Limited Range of Motion ,Poor Balance,Poor Safety Awareness M5 PT-IP Objective Assessments Start: 09/29/24 16:12 Freq: NEEDED Status: Active Protocol: Document 09/29/24 16:13 KJ (Rec: 09/29/24 16:22 KJ Desktop) Orientation Orientation/Cognition Level of Alertness Alert Orientation Name,Age,Birthday Language Function No Deficits Noted Ability Gross Range of Motion Upper Extremity ROM Assessment Within Functional Limits Lower Extremity ROM Assessment Within Functional Limits Strength Upper Extremity Strength Assessment Left Impaired Shoulder decreased strength bilat Hand decreased blood bank business manager strength Lower Extremity Strength Assessment Within Functional Limits Ankle ankle plantar/dorsifllex WNL M6 PT-IP Treatment Start: 09/29/24 16:12 Freq: NEEDED Status: Active Protocol: Document 09/30/24 10:15 AB (Rec: 09/30/24 12:36 AB [id number]) Physical Therapy Treatment Education Education Provided Safety M7 PT-IP Assessment and Plan Start: 09/29/24 16:12 Freq: NEEDED Status: Active Protocol: Document 09/30/24 10:15 AB (Rec: 09/30/24 12:36 AB [id number]) PT Summary Assessment and Plan Potential Rehabilitation Fair Potential Summary Impairments Pain,ROM,Strength,Balance,Coordination,Sensation,Tone, Cognition,Bed Mobility,Transfers,Gait,Activity Tolerance Progress Towards Slow Progress due to Medical Issues,Slow Progress due Goals to Activity Tolerance Assessment Summary pt requiring max A for bed mobility, min to mod A for transfers and min A for ambulation using fWW. pt will require 24/7 assist at this time. pt lives at [facility]. d/c plan: [facility] and HHPT if [facility] will be able provide appropriate assistance to pt vs SNF. Goals Bed Mobility Goal Independent Transfer Goal Standby Assistance,Front Wheeled Walker Gait Goal Standby Assistance,Front Wheel Walker Gait Distance 50 Days to Meet Goals 10 Frequency of Treatment Frequency Of Once a Day Treatment Treatment Plan Physical Therapy Bed Mobility Training,Transfer Training,Gait Training, Treatment Plan Therapeutic Exercise,Balance Retraining,Discharge Planning Recommendations To Nursing Amount of Assist 1 Person Assist Needed Discharge Recommendations PT Discharge Home with 30/10 Assist Available,Home Health,SNF Rehab, Recommendations Home vs SNF - PT assist 1
--- NOTE | 2024-09-30 12:11 | OT.IP.EVAL ---
Past Medical History (Last Reviewed 08/02/23 @ 07:26 by Wale Allen MD) Ankle pain (2007) Anxiety (1994) Bipolar 1 disorder, depressed, partial remission Bipolar 1 disorder, mixed, full remission Bipolar disorder (1989) Bipolar I disorder, most recent episode depressed, severe without psychotic features Cataract (2011) Chicken pox COVID-19 CTS (carpal tunnel syndrome) (1987) Depression (1962) DM type 2 (diabetes mellitus, type 2) Foot pain (~2002) Fractures (2007) Hayfever (~1989) Hyperlipidemia Hypertension Hypothyroidism Measles Peripheral neuropathy (2013) Psychosis RLS (restless legs syndrome) (1999) Sleep apnea (08/2015) Urinary incontinence Surgical History (Last Reviewed 08/02/23 @ 07:26 by Wale Allen MD) Anesthesia complication History of carpal tunnel repair (~1997) History of surgery (04/2008) Occupational Therapy Inpatient Evaluation/Re-Eval M1 PT/OT-IP Prior Functional Status Start: 09/29/24 16:12 Freq: NEEDED Status: Active Protocol: Document 09/30/24 12:11 [facility] (Rec: 09/30/24 12:25 [facility] Desktop) Medical Review Prior Functional Status Medical History Yes Reviewed Mobility and Gait Pt states she was ambulating indep w/out assistive device at AL facility Activities of Daily Pt states she was able to care for self at AL facility Living and IADL's Prior Functional Pt reports ongoing tremor due to medication side Level (Other details effects ) Social History Household Members children Living Arrangements Assisted Living Home Environment Standard Height Toilet,Walk in Shower,Built-In Shower Seat Home Equipment Four Wheel Walker,Hand Held Shower,Grab Bars Near Toilet,Grab Bars In Shower M2 OT-IP Current Condition Start: 09/30/24 12:10 Freq: Status: Active Protocol: Document 09/30/24 12:11 [facility] (Rec: 09/30/24 12:25 [facility] Desktop) Occupational Therapy Current Condition Current Condition Evaluation Date 09/30/24 Treatment Diagnosis PNA Diagnosis Onset Date 09/28/24 M3 OT- IP Subjective and Pain Start: 09/30/24 12:10 Freq: Status: Active Protocol: Document 09/30/24 12:11 [facility] (Rec: 09/30/24 12:25 [facility] Desktop) OT- Subjective Occupational Therapy Visit Type Type Initial Evaluation Visit Start Time 11:40 Visit Stop Time 12:11 Occupational Therapy Visit Comments Patient Comments Pt agreed to get up to use the BSC. Patient/Caregiver Pt insistent on going back to [facility]. Goals OT Pain Assessment Pain When Pain Assessed At Rest Pain Present Pain Present Denied Pain M4 OT- IP ADL's Start: 09/30/24 12:10 Freq: Status: Active Protocol: Document 09/30/24 12:11 [facility] (Rec: 09/30/24 12:25 [facility] Desktop) OT [id number] Comments OT Self-Feeding Not at meal time. Comments OT ADL-Grooming Comments OT Grooming Comments Able to wash her wash her hands at the sink after set- up. Pt having loss of balance backwards while standing at the sink and needing physical assist to regain her balance. OT ADL-Oral Care Comments Oral Care Comments Not performed. OT ADL-Dressing General Eval Lower Body Dressing Maximum Assistance Ability Areas Needing Underpants/Brief Assistance Comments OT Dressing Comments Able to practice use of aoc airspace control officer for brief management needs. Pt states at home able to do all ADL needs but at times gets suck and not able to complete and needs assist. OT ADL-Toileting General Evaluation Toileting Ability Maximum Assistance Areas Needing Manage Clothing Assistance Comments OT Toileting Assist for balance and help with brief needs. Pt will Comments benefit from completeness after a BM. OT ADL-Bathing Comments OT Bathing Comments Pt would benefit from assist. M5 OT- IP IADL's Start: 09/30/24 12:10 Freq: Status: Active Protocol: Document 09/30/24 12:11 [facility] (Rec: 09/30/24 12:25 [facility] Desktop) OT-Instrumental Activities of Daily Living Home Safety Awareness Home Safety Comments Pt a bit spacey and needing increased time and repetition of cues in order to follow for ADL and mobility needs. Medication Management Medication Caregiver Administers Management Money Management Money Management Caregiver Provides Assistance Meal Preparation Meal Preparation Caregiver Provides Assist Commercial Lines Account Assistant Commercial Lines Account Assistant Caregiver Provides Assist M6 OT- IP Functional Cognition Start: 09/30/24 12:10 Freq: Status: Active Protocol: Document 09/30/24 12:11 [facility] (Rec: 09/30/24 12:25 [facility] Desktop) Cognitive Factors Limiting Selfcare Function Cognitive Ability Level of Alertness Alert,Confusional State Patient Orientation Name Attention Span Capable of Focused Attention,Unable to Focus,Unable to Ability Sustain Attention Ability to Follow Able to Follow One Step Commands with Increased Time, Commands Able to Follow One Step Commands with Repetition Memory Description Short Term Impaired Cognitive Comments Cognitive Assessment Pt having difficulty to follow commands and stay Comments focused and appears a bit spacey. Pt needing increased time and having to ask several times of home set-up. Pt would benefit from SLUMS. OT- Vision and Hearing OT- Hearing Assessment OT- Hearing WFL Assessment OT- Vision Assessment Visual Acuity Glasses For Reading Visual Attentiveness WFL Occular Pursuits WFL Vision Assessment Pt able to read the clock accurately. Comments M7 OT- IP Mobility and Balance Start: 09/30/24 12:10 Freq: Status: Active Protocol: Document 09/30/24 12:11 [facility] (Rec: 09/30/24 12:25 [facility] Desktop) OT-Transfer Assessment Sit to and From Stand Sit to and from Minimal Assistance Stand Transfers Transfer Ability Minimal Assistance,Moderate Assistance Technique Transfer Destination Bedside Commode,Chair Transfer Technique Stand Step Pivot Devices Transfer Assistive Gait Belt,Front Wheeled Walker Devices Comments Mobility Comments KAROLINE to stand and vc to push up on the recliner to stand and reach back prior to sitting down. KAROLINE with FWW for balance and to help guide the FWW. pt tires needing MODA. OT- Balance Assessment Sitting Balance and Reactions Static Sitting Good Balance Ability Dynamic Sitting Fair Balance Ability Standing Balance and Reactions Static Standing Fair Balance Ability Dynamic Standing Poor Balance Ability M8 OT- IP Objective Assessments Start: 09/30/24 12:10 Freq: Status: Active Protocol: Document 09/30/24 12:11 [facility] (Rec: 09/30/24 12:25 [facility] Desktop) OT Gross Range of Motion Upper Extremity Range of Motion ROM Impairments grossly WFL for ROM OT Strength Upper Extremity Strength Assessment Bilaterally Impaired Comments Strength Comments BUE 4-/5 to 4/5 from proximal to distal. M9 OT- IP Assessment and Plan Start: 09/30/24 12:10 Freq: Status: Active Protocol: Document 09/30/24 12:11 [facility] (Rec: 09/30/24 12:25 [facility] Desktop) OT Summary Assessment and Plan Potential Rehabilitation Good Potential Analytic Complexity Moderate at Evaluation Summary OT Impairments Strength,Balance,Functional Cognition,Functional Mobility,Grooming,Dressing,Toileting,Bathing,Toilet Transfers,Shower Transfers,Activity Tolerance Progress Towards Slow Progress due to Medical Issues,Slow Progress due Goals to Activity Tolerance,Slow Progress due to Cognition Assessment Summary Pt MOD complexity and main barriers are decreased balance, endurance, and activity tolerance and now needing one person assist with mobility and ADL needs. Prior pt states able to do all ADLs and move on her own . Pt would greatly benefit from SNF. However pt refusing and wanting to go home back to [facility]. If pt going back home will need 24/7 available increased assist as pt is a fall risk at this time, also having decreased safety awareness. Goals Self-Feeding Goal Independent Grooming Goal Independent Dressing Goal Independent,Vehicle Refinisher,Sock Aid Toileting Goal Standby Assistance Bathing Goal Standby Assistance Toilet Transfer Goal Independent Shower Transfer Goal Standby Assistance Days to Meet Goals 10 Frequency of Treatment Other frequency 5x/week Treatment Plan OT Treatment Plan ADL Training,Functional Cognition Training,Patient/ Family Education,Discharge Planning Other Treatment SLUMS Recommendations and Next Treatment Focus Discharge Recommendations OT Discharge Home with 24/7 Assist Available,Home Health,SNF Rehab, Recommendations Home vs SNF Transportation Needs Private Vehicle,Wheelchair/Cabulance at Discharge
--- NOTE | 2024-09-30 14:18 | CM.DANOTE ---
B DCP Assessment note pt is a 74yo F under the care of Dr. Corcoran admitted with weakness/pneumonia. PCP Jewell payer [facility] and medicaid KIESELGUHR REGENERATOR OPERATOR reviewed EMR per chart review, oscillating between 1ltr oxygen and room air. remains on IV abx. PT/OT=SNF vs assisted living with increased assistance. per Jewell, one more day for IV abx and then return to [facility]. per PT notes, pt ambulating better every day. anticipated after another day of IV abx will be closer to baseline mobility. per OT, pt does not wish to return to SNF. adamant for return to [facility]. per chart, hx of [facility]. CC [place] emailed clinicals to [facility] to review. KIESELGUHR REGENERATOR OPERATOR called [facility], spoke with senior etl developer. paolo Brown state assessed properties director will call me back. Attempted to meet with pt in room. sleeping soundly, allowed to rest. P: dc tomorrow to [facility], will continue to coordinate with [facility] and pt. anticipate facility transport at ut. will continue to follow closely for DCP coordination RAFA Santos Discharge Planning/Care Management Advanced directive, confirm from FAMILY Start: 09/28/24 18:31 Freq: Q24H Status: Active Protocol: Document 09/28/24 18:31 CM (Rec: 09/28/24 18:31 CM [id number]) Advance Directive, confirm on record Time 18:31 Person contacted Pt Copy received No Time 18:31 Person contacted Pt does not have Copy received No Advanced directive No available on record CM Discharge Assessment Start: 09/28/24 17:56 Freq: Status: Active Protocol: Document 09/30/24 14:16 SL (Rec: 09/30/24 14:17 SL [id number]) Discharge Planning Assessment Assigned Discharge RAFA Mendes Slabber CANDICE/Assigned sangeetha Batista Designee Name Contact Information [phone] Advance Directives? No Advance Directives No on File History Provided By Patient,Family Member,Medical Record Prior Living Assisted Living Arrangements Household Members none Type of Relies on Others transporation used prior to admit Facility Name [facility] Admitted From: Willing to Return to Yes Facility? Independent with ADL Yes 's Is patient alert and Yes oriented? Barriers to Yes Discharge Comment pending [facility] agreeing to accept pt back Discharge Plan Assisted Living Facility Transportation TBD Arrangement Referrals Initiated None needed Review Status In Process Please Provide Date 09/23/24 Initial DC Assessment Was Performed Next Review Type Continued Stay Review
[2024-09-30] MEDS: AZITHROMYCIN 500 MG in DEXTROSE 5% IN WATER 250 ML 250 MG IV (16:05)
[2024-09-30] MEDS: cefTRIAXone 2,000 MG in SODIUM CHLORIDE 0.9% 100 ML 200 MG IV (18:16)
[2024-09-30] MEDS: DIVALPROEX ER 250 MG TAB 1250 MG PO (21:39)
[2024-09-30] MEDS: GABAPENTIN 300 MG CAPSULE 900 MG PO (21:39)
[2024-09-30] MEDS: OLANZapine 2.5 MG TABLET 10 MG PO (21:40)
[2024-09-30] MEDS: ATORVASTATIN 20 MG TABLET 40 MG PO (21:40)
[2024-09-30] MEDS: cloNIDine 0.1 MG TABLET 0.2 MG PO (21:40)
[2024-09-30 22:32] LABS: POC Glucose 101 mg/dL (70-99)
[2024-09-30 23:00] VITALS: BP 147/77; PULSE 88; RESP 18; TEMP 36.2; O2SAT 91
[2024-10-01 08:00] VITALS: BP 120/49; PULSE 77; RESP 16; TEMP 36.6; O2SAT 91
[2024-10-01] MEDS: ENOXAPARIN 40 MG/0.4 ML SYRINGE SUBCUT (08:41)
[2024-10-01] MEDS: OXYBUTYNIN 5 MG TABLET PO (08:42)
[2024-10-01] MEDS: GABAPENTIN 300 MG CAPSULE PO (08:42)
[2024-10-01] MEDS: ROPINIROLE 0.25 MG TABLET 0.5 MG PO (08:42)
[2024-10-01] MEDS: SITAGLIPTIN 50 MG TABLET 100 MG PO (08:42)
[2024-10-01] MEDS: MAGNESIUM OXIDE 400 MG TABLET 200 MG PO (08:42)
[2024-10-01] MEDS: allopurinoL 100 MG TABLET 300 MG PO (08:42)
[2024-10-01] MEDS: INSULIN LISPRO 100 UNIT/ML 3ML VIAL SUBCUT (08:43)
--- NOTE | 2024-10-01 09:23 | P.DS_ITS ---
History of Present Illness History of Present Illness Chief complaint: Weakness Narrative: Patient is a 74-year-old female patient of Dr. Corcoran with history of hypothyroidism, gout, manic depression, who I am cross covering for who presents for weakness over the last 6 days. Patient states that she feels like she just had progressive weakness. She has had no fevers no chills no cough. No runny nose. No one else around her spent sick. She has had no headaches no visual changes numbness or tingling. The weakness is generalized and not consistent to 1 side. She has no other significant new changes or complaints. She denies any chest pain except with swallowing over the last 2 days. She is noticed that it hurts a little bit. Feels like it might be trying to go down the wrong tube. This is not been sent happens consistently. Only over the last few days. Otherwise no change. Patient has had no abdominal pain. No nausea no vomiting no urinary complaints. No change in her bowel movements. Otherwise has been feeling well. Discharge Providers Provider Date of admission: 09/28/24 16:27 Discharge Date: 10/01/24 Primary care physician: Alina Corcoran MD Consults: 09/29/24 08:01 Consult to Physical Therapy Evaluate & Treat Comment: Physician Instructions: Evaluate and Treat 09/30/24 11:33 Consult to Occupational Therapy Evaluate & Treat Comment: Physician Instructions: Evaluate and treat Discharge provider: Alina Corcoran MD Summary Hospital Course Discharge Diagnosis: 1) Right-sided pneumonia 2) Dehydration 3) Weakness 4) Bipolar disorder with hx of psychosis 5) RLS 6) DM type 2 7) Hx of gout 8) Hyperlipidemia Hospital Course: The pt was admitted with pneumonia. She was placed on Ceftriaxone and Azithromycin. Her weakness improved throughout the hospitalization. At the time of discharge, she was near to baseline. She will complete an oral course of antibiotics as an outpatient. She never had an oxygen requirement. She is discharging home stable. Status at Discharge Cognitive/behavioral status at discharge: oriented Functional status at discharge: uses cane/walker Overall status at discharge: patient is back to baseline Exam Vital Signs (past 8 hours): Oxygen Delivery Method Nasal Cannula Oxygen Flow Rate 0 Narrative Exam Narrative: Gen: NAD, sitting comfortably in bed, appears her usual self CV: RRR, no murmurs Resp: clear to auscultation bilaterally, no crackles or wheezes Abd: soft, nontender, nondistended Ext: 1+ edema Objective Labs 09/29/24 05:30 09/29/24 05:30 Labs: Laboratory Results - last 24 hr 09/30/24 22:27 POC Whole Bld Glucose 101 H [facility] Medical History Bipolar 1 disorder, depressed, partial remission Psychosis COVID-19 Bipolar 1 disorder, mixed, full remission Hyperlipidemia DM type 2 (diabetes mellitus, type 2) Bipolar I disorder, most recent episode depressed, severe without psychotic features Bipolar disorder (1989) Fractures (2007) Foot pain (~2002) Ankle pain (2007) Peripheral neuropathy (2013) Hayfever (~1989) Sleep apnea (08/2015) Hypertension Hypothyroidism Urinary incontinence Cataract (2011) Chicken pox Measles CTS (carpal tunnel syndrome) (1987) RLS (restless legs syndrome) (1999) Anxiety (1994) Depression (1961) Surgical History Anesthesia complication History of surgery (04/2008) History of carpal tunnel repair (~1997) Family History Child Age: 52 Arthritis Mother Heart disease Family history of fraternal twins Family history of identical twins Levin gestation with first Social History marital status: number of children: 2 household members: none lives independently: Yes caregiver/support person: No housing: house pets and animals: No education level: high school occupational status: unemployed leisure activities: reading and volunteer work other: walk,garden,visit friends,zoroastrian,word puzzles seatbelt use: always water heater temp set < 120 deg: Yes working smoke detector in home: Yes fire extinguisher in home: Yes carbon monox detector in home: Yes Smoking Status: Never smoker second hand exposure: No alcohol intake: current substance use type: does not use during the past year weight has: other well-balanced diet: rarely or never daily servings fruits/ve-1 caffeine: Yes eating out: 1-3 times/week frequency: 3-4 times per week duration: 15-30 minutes/day Discharge Plan Discharge Plan Patient Disposition: Assisted Living Transfer to: [facility] Discharge orders & Medications Discharge Orders: Discharge (Order); Ordered 10/01/24 Ordered By: Alina Corcoran Prescriptions: New benzonatate 100 mg Capsule 100 mg PO TID PRN (Reason: Cough) Qty: 30 0RF azithromycin 250 mg tablet 250 mg PO DAILY Qty: 3 0RF cefdinir 300 mg capsule 300 mg PO BID Qty: 6 0RF Continued Januvia 100 mg tablet 100 mg PO DAILY Sleep Aid (doxylamine) 25 mg tablet 25 mg PO BEDTIME clonidine HCl 0.2 mg tablet 0.2 mg PO BEDTIME olanzapine 10 mg tablet 10 mg PO ONCE PM gabapentin 300 mg capsule See Rx Instructions .ROUTE .COMPLEX Qty: 120 3RF Rx Instructions: 300 mg po qam and 900 mg po qpm; (DME) DISABLED [employer] See Rx Instructions .Route .MEDSUPPLY Qty: 1 0RF Rx Instructions: 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 levothyroxine 137 mcg tablet 137 mcg PO DAILY metformin 500 mg tablet 500 mg PO BID acetaminophen 325 mg tablet 650 mg PO Q6H Patient Comments: has not taken for months nystatin 100,000 unit/gram ointment 1 applic topical DAILY magnesium oxide 250 mg magnesium tablet 250 mg PO DAILY ropinirole 0.25 mg tablet 0.5 mg PO DAILY Qty: 180 2RF olanzapine-samidorphan 10-10 mg tablet 1 tab PO DAILY Qty: 30 3RF clonidine HCl 0.1 mg tablet 0.2 mg PO BEDTIME Qty: 60 3RF biotin 1 mg capsule 1 mg PO DAILY nystatin 100,000 unit/gram cream 1 applic topical DAILY polyethylene glycol 3350 [Miralax] 17 gram/dose powder 17 g PO BID empagliflozin 10 mg tablet 10 mg PO DAILY (DME) Depends Incontinence supplies XL See Rx Instructions .Route .MEDSUPPLY Qty: 100 3RF Rx Instructions: for three times daily changes (DME) Prevail Plus pads 6 See Rx Instructions .Route .MEDSUPPLY Qty: 90 3RF Rx Instructions: As directed oxybutynin chloride 5 mg tablet 5 mg PO BID Qty: 60 2RF allopurinol 300 mg tablet See Rx Instructions .ROUTE .COMPLEX Qty: 90 2RF Dose Instruction: TAKE 1 TABLET BY MOUTH DAILY FOR GOUT Rx Instructions: TAKE 1 TABLET BY MOUTH DAILY FOR GOUT atorvastatin 40 mg tablet 40 mg PO BEDTIME Qty: 90 0RF bisacodyl 10 mg suppository 10 mg ID DAILY PRN (Reason: constipation) Qty: 30 0RF simethicone 80 mg tablet,chewable See Rx Instructions PO 6XD Qty: 30 0RF Rx Instructions: 160mg orally x 6hours prn for GAS pain; (DME) lancets See Rx Instructions .Route .MEDSUPPLY Qty: 100 3RF Rx Instructions: As directed to test glucose twice daily divalproex [Depakote ER] 500 mg tablet extended release 24 hr See Rx Instructions PO BEDTIME Qty: 60 2RF Rx Instructions: take 2 x500mg along with 250mg tablet for total dose of 1250mg. (DME) glucose monitor See Rx Instructions .Route .MEDSUPPLY Qty: 1 0RF Rx Instructions: As directed to check glucose twice daily (DME) glucose test strips See Rx Instructions .Route .MEDSUPPLY Qty: 100 3RF Rx Instructions: As directed to test glucose twice daily divalproex 250 mg tablet extended release 24 hr 250 mg PO DAILY Qty: 30 2RF Rx Instructions: Take 250mg in addition to 2 x 500mg tablets for total dose 1250mg. magnesium 250 mg tablet 250 mg PO DAILY Qty: 10 0RF Follow up/Referrals: Alina Corcoran MD [Primary Care Provider, Family Practice] - 2 Weeks Diet/Activity/Treatments Diet: Diet as Tolerated and Carb-consistent/Diabetic Liquid consistency: Normal/Thin Food texture: Regular Activity: up ad jeffrey Skin/Wound/Dressing Care Report to your healthcare provider any signs of infection, such as:: chills, fever Visit Report/Discharge Packet Stand Alone Forms: Patient Portal/API, Stroke Signs & Symptoms Discharge Data Primary Care Provider: Alina Corcoran Attending Provider: Alina Corcoran Admit Date/Time: 09/28/24 16:27 Discharges patient from system. Discharge Date/Time: 10/01/24 12:00 Quality VTE Deep Vein Thrombosis/Pulmonary Embolism Present on Admission: No IH PROFEE Charge Codes Discharge inpatient/observation: [id number]
--- NOTE | 2024-10-01 09:30 | PT.IPTN ---
Physical Therapy Treatment Note M2 PT-IP Current Condition Start: 09/29/24 16:12 Freq: NEEDED Status: Active Protocol: Document 09/29/24 16:13 KJ (Rec: 09/29/24 16:22 KJ Desktop) Physical Therapy Current Condition Current Condition Evaluation Date 09/29/24 Treatment Diagnosis Impaired mobility, poor activity tolerance Onset Date 09/21/22 M3 PT-IP Subjective Start: 09/29/24 16:12 Freq: NEEDED Status: Active Protocol: Document 10/01/24 09:30 AB (Rec: 10/01/24 12:27 AB [id number]) Subjective Physical Therapy Visit Type Type Treatment Note Visit Start Time 09:30 Visit Stop Time 09:50 Number of GOODS LAYER Visits 0 Physical Therapy Visit Comments Patient Comments agreeable to do PT M4 PT-IP Mobility and Gait Start: 09/29/24 16:12 Freq: NEEDED Status: Active Protocol: Document 10/01/24 09:30 AB (Rec: 10/01/24 12:27 AB [id number]) PT-Bed Mobility Assessment Supine to Sit Supine to Sit Maximum Assistance,1 Person Assistance,Head of Bed Elevated,Bedrails PT-Transfer Assessment Sit to and From Stand Sit to and from Maximum Assistance,1 Person Assistance,Use of Upper Stand Extremities Equipment Transfer Assistive Gait Belt,Front Wheeled Walker Device Orthotic/Prosthetic No Devices or Brace: Transfers Transfer Destination Toilet Transfer Technique ambulated Transfer Ability Level of Assist Minimal Assistance,Moderate Assistance,1 Person Assistance,Use of Upper Extremities Comments Mobility Comments pt in bed and agreed to get up. supine to sit max A and max cues. increase retrolean needing mod A for repositioning and max cues. sit to stand from EOB max A and max cues. pt requested to use the toilet and ambulated to the toilet requiring mod A with initial steps but able to ambulate min A after a few feet. pt sat on the toilet requiring max A for controlled descent. pt required assist with brief management. pt needing to be cleaned up and left pt with NAC. Gait Assessment Gait Gait Assistance Minimum Assistance,Moderate Assistance Required: Distance (Feet) 10 Able to Maintain Yes Weight Bearing Status During Gait Assistive Devices Assistive Device Gait Belt,Front Wheeled Walker Orthotic/Prosthetic No Devices or Brace: Gait Deviations General Gait Pattern Decreased Stride Length,Decreased Feet Clearance,Step- to Gait Factors Limiting Gait Function Factors Limiting Decreased Activity Tolerance,Decreased Strength, Gait Function Difficulty Following Directions,Limited Range of Motion ,Poor Balance,Poor Safety Awareness M5 PT-IP Objective Assessments Start: 09/29/24 16:12 Freq: NEEDED Status: Active Protocol: Document 09/29/24 16:13 KJ (Rec: 09/29/24 16:22 KJ Desktop) Orientation Orientation/Cognition Level of Alertness Alert Orientation Name,Age,Birthday Language Function No Deficits Noted Ability Gross Range of Motion Upper Extremity ROM Assessment Within Functional Limits Lower Extremity ROM Assessment Within Functional Limits Strength Upper Extremity Strength Assessment Left Impaired Shoulder decreased strength bilat 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 Lower Extremity Strength Assessment Within Functional Limits Ankle ankle plantar/dorsifllex WNL M6 PT-IP Treatment Start: 09/29/24 16:12 Freq: NEEDED Status: Active Protocol: Document 10/01/24 09:30 AB (Rec: 10/01/24 12:27 AB [id number]) Physical Therapy Treatment Education Education Provided Safety M7 PT-IP Assessment and Plan Start: 09/29/24 16:12 Freq: NEEDED Status: Active Protocol: Document 10/01/24 09:30 AB (Rec: 10/01/24 12:27 AB [id number]) PT Summary Assessment and Plan Potential Rehabilitation Fair Potential Summary Impairments Pain,ROM,Strength,Balance,Coordination,Sensation,Tone, Cognition,Bed Mobility,Transfers,Gait,Activity Tolerance Progress Towards Slow Progress due to Medical Issues,Slow Progress due Goals to Activity Tolerance,Slow Progress - Other Assessment Summary pt continues to require max A and max cues for bed mobility, max A for sit to stand and min to mod A for ambulation using fWW. pt will require 24/7 assist. pt plans to go back to [facility]. Goals Bed Mobility Goal Independent Transfer Goal Standby Assistance,Front Wheeled Walker Gait Goal Standby Assistance,Front Wheel Walker Gait Distance 50 Days to Meet Goals 10 Frequency of Treatment Frequency Of Once a Day Treatment Treatment Plan Physical Therapy Bed Mobility Training,Transfer Training,Gait Training, Treatment Plan Therapeutic Exercise,Balance Retraining,Discharge Planning Recommendations To Nursing Amount of Assist 1 Person Assist Needed Discharge Recommendations PT Discharge Home with 24/7 Assist Available,Home Health,SNF Rehab, Recommendations Home vs SNF - PT assist 1
--- NOTE | 2024-10-01 11:35 | CM.DPNOTE ---
DCP Note Per vy, pt is cleared for return to [facility] today. [employer] spoke with Heena from [facility], able to accept pt back today. 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 [employer] faxed signed med list/dc summary. gave RN med list. [employer] met with pt in room. eager to return home. asked this [employer] call dtr to update her. [employer] AG[employer] called dtr Lynne. agreeable to plan, appreciative of updates. P: return to [facility] today. CM team will continue to follow as needed RAFA Santos
== END 2024-10-01 12:00 ==
LOC: ED 16:27 → AC 16:27
PROVIDERS: Admitting Provider Family Medicine; Emergency Provider Family Medicine; Family Provider Family Medicine; PCP Family Medicine; Referring Provider Family Medicine; Visit Provider Family Medicine
DX: J18.9 Pneumonia, unspecified organism (principal); R53.1 Weakness; E86.0 Dehydration; E11.9 Type 2 diabetes mellitus without complications; F31.9 Bipolar disorder, unspecified; I10 Essential (primary) hypertension; R13.10 Dysphagia, unspecified; E03.9 Hypothyroidism, unspecified; Z79.84 Long term (current) use of oral hypoglycemic drugs; G25.81 Restless legs syndrome; E78.5 Hyperlipidemia, unspecified
CPT/HCPCS: 0241U; 36415; 71045; 71275; 80053; 81001; 82550; 82805; 82962; 83605; 83690; 83735; 83880; 84145; 84484; 85025; 85610; 85730; 87040; 87086; 93005; 93010; 96365; 96366; 96367; 96372; 97116; 97161; 97166; 97530; 99284; G0378; J0696; J1650; J1815; Q9967

== ENCOUNTER 2024-10-03 15:30 | Emergency (ER) | payer MEDICARE, MEDICAID, SELFPAY ==
[2024-09-28 17:56] VITALS: BMI 38.2
[2024-10-03 15:59] VITALS: BP 139/76; PULSE 81; RESP 17; TEMP 36.2; O2SAT 92; BMI 38.7
[2024-10-03 16:27] LABS: Add Manual Diff / Slide Review NO; Basophils Absolute Auto 100 /uL (0-100); Basophils Percent Auto 0.8 % (0-2); Eosinophils Absolute Auto 300 /uL (0-450); Eosinophils Percent Auto 3.8 % (2-4); Hematocrit 43.3 % (36-46); Hemoglobin 14.4 g/dL (12.0-16.0); Lymphocytes Absolute Auto 2800 /uL (1100-4500); Mean Corpuscular HGB Conc 33.3 % (30-36); Mean Corpuscular Hemoglobin 33.4 PG (26-34); Mean Corpuscular Volume 100.3 fL (80-100); Monocytes Absolute Auto 700 /uL (0-900); Monocytes Percent Auto 9.1 % (3-14); Neutrophils Absolute Auto 3600 /uL (1500-7000); Neutrophils Percent Auto 48.3 % (50-75); Platelet Count 135 X10^3/uL (150-400); Red Blood Cell Count 4.32 X10^6/uL (4.0-5.2); White Blood Cell Count 7.5 X10^3/uL (4.5-11.0)
[2024-10-03 16:37] LABS: Alanine Aminotransferase 47 IU/L (<35); Albumin 4.4 g/dL (3.5-5.0); Albumin Globulin Ratio 1.4 (1.0-2.8); Alkaline Phosphatase 93 U/L (38-126); Aspartate Aminotransferase 44 IU/L (14-36); BUN Creatinine Ratio 21.2 (6-22); Bilirubin Total 0.5 mg/dL (0.2-1.3); Blood Urea Nitrogen 18 mg/dL (7-17); Calcium 10.2 mg/dL (8.4-10.2); Carbon Dioxide 28 mmol/L (22-32); Chloride 103 mmol/L (98-107); Estimated Glomerular Filt Rate > 60 mL/min (>60); Globulin 3.2 g/dL (1.7-4.1); Glucose 164 mg/dL (70-99); HEMOLYSIS < 15 (0-50); Lipase 92 U/L (23-300); Potassium 4.2 mmol/L (3.4-5.1); Sodium 141 mmol/L (137-145); Total Protein 7.6 g/dL (6.3-8.2)
[2024-10-03 19:18] LABS: Urine Volume 10mL (spun)
[2024-10-03 19:20] LABS: Bacteria Urine Few (2-10); Culture Indicated Urine Cult Not Indicated; RBC Urine None Seen (0-5/HPF); Squamous Epithelial Cell Urine 0-1 /HPF (0-5/HPF); WBC Urine 1-5/HPF (0-5/HPF)
--- NOTE | 2024-10-03 19:41 | ED.NAVMDI ---
HPI - Nausea/Vomiting/Diarrhea General Chief complaint: Nausea/Vomiting/Diarrhea Stated complaint: Severe diarrhea 3days Time Seen by Provider: 10/03/24 17:24 Source: patient and family Mode of arrival: Wheelchair History of Present Illness HPI Narrative: 74-year-old female seen by me originally admitted for pneumonia sent home on cefdinir and Zithromax after hospital admission presents with numerous bouts of watery diarrhea for the last 3 days. Patient denies fever chills abdominal pain back pain nausea vomiting urinary complaints vaginal discharge cough runny nose sore throat. Patient has been tolerating fluids. However patient reports being weak when she ambulates or stands up only for brief periods of time since she has a feels weak unable to stand for long periods of time. Other than what is stated 14 point review of system is negative. Related Data Home Medications ?Medication ?Instructions ?Recorded ?Confirmed levothyroxine 137 mcg tablet 137 mcg PO DAILY 12/03/23 09/28/24 metformin 500 mg tablet 500 mg PO BID 12/03/23 09/28/24 doxylamine succinate 25 mg tablet 25 mg PO BEDTIME 01/01/24 09/28/24 (Sleep Aid (doxylamine)) sitagliptin phosphate 100 mg 100 mg PO DAILY 01/01/24 09/28/24 tablet (Januvia) biotin 1 mg capsule 1 mg PO DAILY 03/03/24 09/28/24 empagliflozin 10 mg tablet 10 mg PO DAILY 03/03/24 09/28/24 nystatin 100,000 unit/gram topical 1 applic topical DAILY 03/03/24 09/28/24 cream polyethylene glycol 3350 17 17 g PO BID 03/03/24 09/28/24 gram/dose oral powder (Miralax) acetaminophen 325 mg tablet 650 mg PO Q6H pain 04/21/24 09/28/24 magnesium oxide 250 mg PO DAILY 04/21/24 09/28/24 nystatin 100,000 unit/gram topical 1 applic topical DAILY 04/21/24 09/28/24 ointment clonidine HCl 0.2 mg tablet 0.2 mg PO BEDTIME 07/21/24 09/28/24 olanzapine 10 mg tablet 10 mg PO ONCE PM 07/21/24 09/28/24 Previous Rx's ?Medication ?Instructions ?Recorded DISABLED PARKING PLACARD #1 ea 11/24/22 Depends Incontinence supplies #100 ea 03/15/23 Prevail Plus pads #90 ea 03/15/23 oxybutynin chloride 5 mg tablet 5 mg PO BID #60 tabs 06/15/23 clonidine HCl 0.1 mg tablet 0.2 mg (2 x 0.1 mg) PO BEDTIME #60 07/09/23 tabs magnesium 250 mg tablet 250 mg PO DAILY #10 tabs 07/24/23 allopurinol 300 mg tablet See Rx Instructions .Route 08/01/23 .COMPLEX #90 tabs atorvastatin 40 mg tablet 40 mg PO BEDTIME #90 tabs 12/17/23 bisacodyl 10 mg rectal suppository 10 mg HI DAILY PRN constipation 12/17/23 #30 ea simethicone 80 mg chewable tablet See Rx Instructions PO 6XD #30 tabs 12/17/23 ropinirole 0.25 mg tablet 0.5 mg (2 x 0.25 mg) PO DAILY #180 04/21/24 tabs olanzapine 10 mg-samidorphan 10 mg 1 tab PO DAILY #30 tabs 06/24/24 tablet gabapentin 300 mg capsule See Rx Instructions .Route 07/28/24 .COMPLEX #120 caps lancets #100 ea 07/29/24 divalproex 500 mg tablet,extended See Rx Instructions PO BEDTIME #60 08/21/24 release 24 hr (Depakote ER) tabs glucose monitor #1 ea 09/12/24 glucose test strips #100 ea 09/12/24 divalproex 250 mg tablet,extended 250 mg PO DAILY #30 tabs 09/19/24 release 24 hr azithromycin 250 mg tablet 250 mg PO DAILY #3 tabs 10/01/24 benzonatate 100 mg capsule 100 mg PO TID PRN Cough #30 caps 10/01/24 cefdinir 300 mg capsule 300 mg PO BID #6 caps 10/01/24 Allergies Allergy/AdvReac Type Severity Reaction Status Date / Time Sulfa (Sulfonamide Allergy Mild RASH Verified 10/03/24 16:01 Antibiotics) haloperidol (HALOPERIDOL) Allergy Unknown Verified 10/03/24 16:01 lithium (LITHIUM) Allergy Unknown Verified 10/03/24 16:01 risperidone (RISPERIDONE) Allergy Unknown Verified 10/03/24 16:01 lidocaine AdvReac Intermediate gait Verified 10/03/24 16:01 instability perphenazine AdvReac uncontrolled Verified 10/03/24 16:01 hand shaking Review of Systems Review of Systems ROS Unobtainable: All systems reviewed & are unremarkable except as noted in HPI and below Patient History Medical History Bipolar 1 disorder, depressed, partial remission Psychosis COVID-19 Bipolar 1 disorder, mixed, full remission Hyperlipidemia DM type 2 (diabetes mellitus, type 2) Bipolar I disorder, most recent episode depressed, severe without psychotic features Bipolar disorder (1989) Fractures (2007) Foot pain (~2002) Ankle pain (2007) Peripheral neuropathy (2013) Hayfever (~1989) Sleep apnea (08/2015) Hypertension Hypothyroidism Urinary incontinence Cataract (2011) Chicken pox Measles CTS (carpal tunnel syndrome) (1987) RLS (restless legs syndrome) (1999) Anxiety (1994) Depression (1961) Surgical History Anesthesia complication History of surgery (04/2008) History of carpal tunnel repair (~1997) Family History Child Age: 52 Arthritis Mother Heart disease Family history of fraternal twins Family history of identical twins Levin gestation with first Social History marital status: number of children: 2 household members: none lives independently: Yes caregiver/support person: No housing: house pets and animals: No education level: high school occupational status: unemployed leisure activities: reading and volunteer work other: walk,garden,visit friends,scientologist,word puzzles seatbelt use: always water heater temp set < 120 deg: Yes working smoke detector in home: Yes fire extinguisher in home: Yes carbon monox detector in home: Yes Smoking Status: Smoker, status unknown second hand exposure: No alcohol intake: current substance use type: does not use during the past year weight has: other well-balanced diet: rarely or never daily servings fruits/ve-1 caffeine: Yes eating out: 1-3 times/week frequency: 3-4 times per week duration: 15-30 minutes/day Smoking Status: Smoker, status unknown alcohol intake frequency: holidays/special occasions only Exam Narrative Exam Narrative: GENERAL: [74] year old patient appears stated age. Well-developed patient, in mild distress. HEAD: Atraumatic. Normocephalic. EYES: Pupils equal round and reactive. Extraocular motions intact. No scleral icterus. No injection or drainage. ENT: Nose without bleeding, purulent drainage. Throat without erythema, tonsillar hypertrophy or exudate. Airway patent. NECK: Trachea midline. Non tender CARDIOVASCULAR: Regular rate and rhythm without murmurs, gallops, or rubs. RESPIRATORY: Clear to auscultation. Breath sounds equal bilaterally. No wheezes, rales, or rhonchi. GASTROINTESTINAL: Abdomen soft, non-tender, nondistended. EXTREMITIES: No edema or joint tenderness. BACK: Nontender without deformity or crepitance. No flank tenderness. NEURO: AOx3. GCS 15 nonfocal neuro exam SKIN: No rash or erythema of visible areas Initial Vital Signs Initial Vital Signs: Vital Signs Temperature 97.1 F L 10/03/24 15:59 Pulse Rate 81 10/03/24 15:59 Respiratory Rate 17 10/03/24 15:59 Blood Pressure 139/76 10/03/24 15:59 Pulse Oximetry 92 10/03/24 15:59 Oxygen Delivery Method Room Air 10/03/24 15:59 Course Orders Ordered: ED Orders 10/03/24 16:10 Complete Blood Count AUTO DIFF Stat Comprehensive Metabolic Panel Stat Lipase Stat 10/03/24 18:22 GI Panel (Film Array) Stat Urine Microscopic Stat Ondansetron HCl (Ondansetron 4 Mg/2 Ml Inj) 4 mg IV NOW PRN PRN Reason: Nausea And Vomiting Ondansetron HCl (Ondansetron 4 Mg Odt) 4 mg PO NOW PRN PRN Reason: Nausea And Vomiting Discontinued Medications Sodium Chloride (Normal Saline 0.9%) 1,000 mls @ 1,000 mls/hr IV BOLUS ONE Stop: 10/03/24 18:23 Last Admin: 10/03/24 19:51 Dose: 1,000 mls/hr Documented By: LS Vital Signs Vital signs: Vital Signs - 8 hr 10/03/24 15:59 Temperature 97.1 F L Pulse Rate 81 Respiratory Rate 17 Blood Pressure 139/76 Pulse Oximetry 92 Oxygen Delivery Method Room Air MDM - Nausea/Vomiting/Diarrhea Lab Data 10/03/24 16:10 10/03/24 16:10 Labs: Lab Results 10/03/24 10/03/24 Range/Units 16:10 18:22 WBC 7.5 (4.5-11.0) X10^3/uL RBC 4.32 (4.0-5.2) X10^6/uL Hgb 14.4 (12.0-16.0) g/dL Hct 43.3 (36-46) % MCV 100.3 H (80-100) fL MCH 33.4 (26-34) PG MCHC 33.3 (30-36) % RDW 16.0 H (11.6-14.8) % Plt Count 135 L (150-400) X10^3/uL Neut % (Auto) 48.3 L (50-75) % Lymph % (Auto) 38.0 (25-40) % [place] % (Auto) 9.1 (3-14) % Eos % (Auto) 3.8 (2-4) % Baso % (Auto) 0.8 (0-2) % Neut # (Auto) 3600 (9143-4312) /uL Lymph # (Auto) 2800 (9611-7764) /uL [place] # (Auto) 700 (0-900) /uL Eos # (Auto) 300 (0-450) /uL Baso # (Auto) 100 (0-100) /uL Sodium 141 (137-145) mmol/L Potassium 4.2 (3.4-5.1) mmol/L Chloride 103 (98-107) mmol/L Carbon Dioxide 28 (22-32) mmol/L BUN 18 H (7-17) mg/dL Creatinine 0.85 (0.52-1.04) mg/dL Estimated GFR > 60 (>60) mL/min BUN/Creatinine Ratio 21.2 (6-22) Glucose 164 H (70-99) mg/dL Calcium 10.2 (8.4-10.2) mg/dL Total Bilirubin 0.5 (0.2-1.3) mg/dL AST 44 H (14-36) IU/L ALT 47 H (<35) IU/L Alkaline Phosphatase 93 (38-126) U/L Total Protein 7.6 (6.3-8.2) g/dL Albumin 4.4 (3.5-5.0) g/dL Globulin 3.2 (1.7-4.1) g/dL Albumin/Globulin Ratio 1.4 (1.0-2.8) Lipase 92 (23-300) U/L Urine RBC None seen (0-5/HPF) Urine WBC 1-5/hpf (0-5/HPF) Ur Squamous Epith Cells 0-1 /hpf (0-5/HPF) Urine Bacteria Few (2-10) H (None) Urine Yeast >100/hpf (None) Ur Culture Indicated? Cult not indicated Vol Urine Centrifuged 10ml (spun) Stl C. cayetanensis PCR Not detected (Not Detect) Stool Rotavirus (PCR) Not detected (Not Detect) Stool Adenovirus (PCR) Not detected (Not Detect) Stool Astrovirus (PCR) Not detected (Not Detect) Stool Cryptosporidium PCR Not detected (Not Detect) Stl E.coli Shiga Tox PCR Not detected (Not Detect) St Sh/Enteroin Ecoli PCR Not detected (Not Detect) Stl Enterotoxigenic E PCR Not detected (Not Detect) Stool EPEC (PCR) Not detected (Not Detect) Stl E. histolytica PCR Not detected (Not Detect) Stool Giardia Lamblia PCR Not detected (Not Detect) Stool Sapovirus (PCR) Not detected (Not Detect) Stl P. shigelloides PCR Not detected (Not Detect) St Y.enterocolitica PCR Not detected (Not Detect) Stool Vibrio (PCR) Not detected (Not Detect) Stl Vibrio cholerae PCR Not detected (Not Detect) Stl Enteroaggr Ecoli PCR Not detected (Not Detect) Stl Norovirus GI/GII PCR Not detected (Not Detect) Campylobacter (PCR) Not detected (Not Detect) C. difficile Tox (PCR) Not detected (Not Detect) Salmonella (PCR) Not detected (Not Detect) Urine Dip Bedside Urine Glucose 1000 mg/dl Bedside Urine Bilirubin - Negative Bedside Urine Ketone - Negative Urine Specific [place] 1.015 Bedside Urine Occult Blood - Negative Bedside Urine pH 6.0 Bedside Urine Protein + 30 Bedside Urine Urobilinogen - Negative Bedside Urine Nitrite - Negative Bedside Urine Leukocytes - Negative Esterase MDM Narrative Medical decision making narrative: All lab work, vital signs, nurse triage note, medication list, previous ER visits, and all imaging studies reviewed. Stool studies showed no C diff or any other enteric pathogen. Patient given 1 L of lactated ringer here. DC home to keep hydrated and to finish antibiotics for pneumonia. Differential diagnosis includes C.diff, Salmonella, Shigella, viral GE, antibiotic side effect. Discharge Plan Departure Patient Disposition: Home Clinical Impression: Diarrhea Qualifiers: Diarrhea type: functional diarrhea Qualified Code(s): K59.1 - Functional diarrhea Instructions: DI for Diarrhea and Traveler's Diarrhea -- Adult Activity Restrictions/Additional Instructions: Return with new or worsening symptoms. Keep hydrated. Follow up PCP in 1-2 weeks if no improvement in symptoms. Prescriptions: No Action Januvia 100 mg tablet 100 mg PO DAILY Sleep Aid (doxylamine) 25 mg tablet 25 mg PO BEDTIME clonidine HCl 0.2 mg tablet 0.2 mg PO BEDTIME olanzapine 10 mg tablet 10 mg PO ONCE PM gabapentin 300 mg capsule See Rx Instructions .ROUTE .COMPLEX Qty: 120 3RF Rx Instructions: 300 mg po qam and 900 mg po qpm; (DME) DISABLED PARKING PLACARD See Rx Instructions .Route .MEDSUPPLY Qty: 1 0RF Rx Instructions: 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 levothyroxine 137 mcg tablet 137 mcg PO DAILY metformin 500 mg tablet 500 mg PO BID acetaminophen 325 mg tablet 650 mg PO Q6H Patient Comments: has not taken for months nystatin 100,000 unit/gram ointment 1 applic topical DAILY magnesium oxide 250 mg magnesium tablet 250 mg PO DAILY ropinirole 0.25 mg tablet 0.5 mg PO DAILY Qty: 180 2RF olanzapine-samidorphan 10-10 mg tablet 1 tab PO DAILY Qty: 30 3RF clonidine HCl 0.1 mg tablet 0.2 mg PO BEDTIME Qty: 60 3RF biotin 1 mg capsule 1 mg PO DAILY nystatin 100,000 unit/gram cream 1 applic topical DAILY polyethylene glycol 3350 [Miralax] 17 gram/dose powder 17 g PO BID empagliflozin 10 mg tablet 10 mg PO DAILY (DME) Depends Incontinence supplies XL See Rx Instructions .Route .MEDSUPPLY Qty: 100 3RF Rx Instructions: for three times daily changes (DME) Prevail Plus pads 6 See Rx Instructions .Route .MEDSUPPLY Qty: 90 3RF Rx Instructions: As directed oxybutynin chloride 5 mg tablet 5 mg PO BID Qty: 60 2RF allopurinol 300 mg tablet See Rx Instructions .ROUTE .COMPLEX Qty: 90 2RF Dose Instruction: TAKE 1 TABLET BY MOUTH DAILY FOR GOUT Rx Instructions: TAKE 1 TABLET BY MOUTH DAILY FOR GOUT atorvastatin 40 mg tablet 40 mg PO BEDTIME Qty: 90 0RF bisacodyl 10 mg suppository 10 mg HI DAILY PRN (Reason: constipation) Qty: 30 0RF simethicone 80 mg tablet,chewable See Rx Instructions PO 6XD Qty: 30 0RF Rx Instructions: 160mg orally x 6hours prn for GAS pain; (DME) lancets See Rx Instructions .Route .MEDSUPPLY Qty: 100 3RF Rx Instructions: As directed to test glucose twice daily divalproex [Depakote ER] 500 mg tablet extended release 24 hr See Rx Instructions PO BEDTIME Qty: 60 2RF Rx Instructions: take 2 x500mg along with 250mg tablet for total dose of 1250mg. (DME) glucose monitor See Rx Instructions .Route .MEDSUPPLY Qty: 1 0RF Rx Instructions: As directed to check glucose twice daily (DME) glucose test strips See Rx Instructions .Route .MEDSUPPLY Qty: 100 3RF Rx Instructions: As directed to test glucose twice daily divalproex 250 mg tablet extended release 24 hr 250 mg PO DAILY Qty: 30 2RF Rx Instructions: Take 250mg in addition to 2 x 500mg tablets for total dose 1250mg. magnesium 250 mg tablet 250 mg PO DAILY Qty: 10 0RF benzonatate 100 mg Capsule 100 mg PO TID PRN (Reason: Cough) Qty: 30 0RF azithromycin 250 mg tablet 250 mg PO DAILY Qty: 3 0RF cefdinir 300 mg capsule 300 mg PO BID Qty: 6 0RF Referrals: Alina Corcoran MD [Primary Care Provider, Family Practice] Stand Alone Forms: Patient Portal/API
[2024-10-03 19:42] VITALS: BP 142/75; PULSE 80; RESP 20; O2SAT 96
[2024-10-03] MEDS: SODIUM CHLORIDE 0.9% 1,000 ML 1000 ML IV (19:51)
[2024-10-03 20:07] VITALS: BP 148/56; PULSE 84; RESP 18; O2SAT 96
[2024-10-03 20:27] LABS: Adenovirus F 40/41 Not Detected (Not Detect); Astrovirus Not Detected (Not Detect); Campylobacter Not Detected (Not Detect); Clostridium difficile toxin AB Not Detected (Not Detect); Cryptosporidium Not Detected (Not Detect); Cyclospora cayetanensis Not Detected (Not Detect); Entamoeba histolytica Not Detected (Not Detect); Enteroaggregative E.coli Not Detected (Not Detect); Enteropathogenic E.coli Not Detected (Not Detect); Enterotoxigenic E.coli It/st Not Detected (Not Detect); Giardia lamblia Not Detected (Not Detect); Norovirus GI/GII Not Detected (Not Detect); Plesiomonsa shigelloides Not Detected (Not Detect); Rotavirus A Not Detected (Not Detect); Salmonella Not Detected (Not Detect); Sapovirus Not Detected (Not Detect); Shiga-like toxin-prod E.coli Not Detected (Not Detect); Shigella/Enteroinvasive E.coli Not Detected (Not Detect); Vibrio Not Detected (Not Detect); Vibrio cholerae Not Detected (Not Detect); Yersinia enterocolitica Not Detected (Not Detect)
[2024-10-03 20:30] VITALS: BP 178/76; PULSE 79; RESP 18; O2SAT 96
[2024-10-03 21:01] VITALS: BP 149/74; PULSE 76; RESP 18; O2SAT 96
[2024-10-03 21:48] VITALS: BP 143/65; PULSE 74; RESP 18; O2SAT 96
--- NOTE | 2024-10-14 10:54 | PC.NURSE ---
late entry per RN NS IV was completed and discontinued at 2100
== END 2024-10-03 21:49 | disposition home or self-care (01) ==
PROVIDERS: Emergency Medicine; Emergency Provider Family Medicine; Family Provider Family Medicine; PCP Family Medicine
DX: K59.1 Functional diarrhea (principal)
CPT/HCPCS: 36415; 80053; 81003; 81015; 83690; 85025; 87507; 96360; 96361; 99284

== ENCOUNTER → 2024-10-17 15:01 | Outpatient (CLI) | payer MEDICARE, MEDICAID, SELFPAY ==
[2023-08-24 16:41] VITALS: BMI 43.4
[2024-09-28 17:56] VITALS: BMI 38.2
--- NOTE | 2024-10-17 15:07 | DIAB.MNTFU ---
Follow-up Diabetes Medical Nutrition Therapy Assessment Name: Madhav Coats V Date: 10/17/24 Time: 310-4p Dx: Type II Diabetes Madhav presents for follow-up Dm visit. Endorses diagnosis 4 yeras ago. Reports recent pneumonia admission and tx with antibiotics resulting in diarrhea. D/c of antibiotics x 5 days ago. BM have improved, went from watery to loose. Still eating yogurt. Cut down on dessert and juice. more fruit lately, questions about fruit options and BG States she is able to eat cashews with dentition, but has not bought any yet. Switched to cheerios and reduce CHO at breakfast Tried pb bread for breakfast but prefers with jam too Diet recall: 730a: cheerios and milk with 1/2c juice sn: oyster crackers grazing 12p: ensure OR Sammarinese yogurt with juice OR pasta with 1/2c juice sn: Sammarinese yogurt 530p: potatoes alone, did not like rest of dinner OR sub yogurt with ensure prn sn: nothing or oyster crackers water 32oz juice 8oz per day coffee with milk 24oz diet soda Other snacks: cheeries, grapes, bananas, cheddar rice cakes, cheese sticks Anthropometrics: Ht: 62 Wt: 224# 07/2024 Physical Activity: chair yoga 2-3 days per week Self-Monitoring Blood Glucose: None, but states she wants to check or have supplies to potentially check. Does not have supplies per report. States insurance needed a specific brand. RD messaged workgroup inquiring about rx. Diabetes Medications: 500mg Metformin BID 10mg Jardiance 100mg Januvia Pertinent Labs: HgA1c: 7.9% 07/2024 Past Medical History: (Last Reviewed 08/02/23 @ 07:26 by Wale Allen MD) Ankle pain (2007) Anxiety (1994) Bipolar 1 disorder, depressed, partial remission Bipolar 1 disorder, mixed, full remission Bipolar disorder (1989) Bipolar I disorder, most recent episode depressed, severe without psychotic features Cataract (2011) Chicken pox COVID-19 CTS (carpal tunnel syndrome) (1987) Depression (1962) DM type 2 (diabetes mellitus, type 2) Foot pain (~2002) bottom of footFractures (2007) Hayfever (~1989) off and onHyperlipidemia Hypertension Hypothyroidism Measles Peripheral neuropathy (2013) Psychosis RLS (restless legs syndrome) (1999) Sleep apnea (08/2015) BiPapUrinary incontinence Nutrition Rx: Plate Method Nutrition Diagnosis: - Excessive CHO intake r/t nutrition knowledge deficit aeb diet recall - improved - Undesirable food choices r/t nutrition knowledge deficit aeb juice intake and desserts BID- in progress/improved Intervention: This participant was very receptive. Provided appropriate educational handouts. Discussed the following topics: Fruit impact on Bg and portions Troubleshooting BG monitoring supplies Improvement in diet changes Avoiding sugar beverages Diarrhea MNT Protein snacks she enjoys Created SMART goals for patient self-care and success. Goals: Ask [facility] if they have Cheerios instead of Raisin Bran- met Avoid other carb options with breakfast cereal- met Try pb toast for breakfast- met Avoid juice- improved Try to cut down on dessert- met Try protein snack, ie cheese, pb, or cashews- met/in progress ups driver cashews- new ups driver berries- new Ask staff not to bring juice- new Follow-up: SUSI [facility] follow-up in 3-4 weeks. Lyn Maharaj RDN, ESTRELLA Certified Diabetes Care and Library Helper P: [phone] Thank you for this referral
== END ==
PROVIDERS: PCP Family Medicine; Referring Provider Family Medicine
DX: E11.9 Type 2 diabetes mellitus without complications (principal); Z71.3 Dietary counseling and surveillance; Z79.84 Long term (current) use of oral hypoglycemic drugs
CPT/HCPCS: 97803

== ENCOUNTER 2024-10-30 08:47 | Emergency (ER) | payer MEDICARE, MEDICAID, SELFPAY ==
[2024-09-28 17:56] VITALS: BMI 38.2
[2024-10-30 09:06] VITALS: BP 151/70; PULSE 74; RESP 16; TEMP 36.6; O2SAT 90; BMI 38.7
--- NOTE | 2024-10-30 09:13 | ED.GENADULT ---
HPI - General Adult General Chief complaint: Weakness Stated complaint: Weak x 3 weeks worsening Time Seen by Provider: 10/30/24 09:13 Source: patient and family Mode of arrival: Wheelchair History of Present Illness HPI narrative: 74-year-old woman with a history of hypertension, hypothyroidism, anxiety, bipolar 1, type 2 diabetes with hospitalization for pneumonia with discharge on October 01, currently at [facility] comes in for significant weakness. Her daughter reports she has had increasing weakness over the last 3 weeks but today dramatically worse requiring 2 person assist which is quite unusual. Related Data Home Medications ?Medication ?Instructions ?Recorded ?Confirmed levothyroxine 137 mcg tablet 137 mcg PO DAILY 12/03/23 10/24/24 metformin 500 mg tablet 500 mg PO BID 12/03/23 10/24/24 doxylamine succinate 25 mg tablet 25 mg PO BEDTIME 01/01/24 10/24/24 (Sleep Aid (doxylamine)) sitagliptin phosphate 100 mg 100 mg PO DAILY 01/01/24 10/24/24 tablet (Januvia) biotin 1 mg capsule 1 mg PO DAILY 03/03/24 10/24/24 empagliflozin 10 mg tablet 10 mg PO DAILY 03/03/24 10/24/24 nystatin 100,000 unit/gram topical 1 applic topical DAILY 03/03/24 10/24/24 cream polyethylene glycol 3350 17 17 g PO BID 03/03/24 10/24/24 gram/dose oral powder (Miralax) acetaminophen 325 mg tablet 650 mg PO Q6H pain 04/21/24 10/24/24 magnesium oxide 250 mg PO DAILY 04/21/24 10/24/24 nystatin 100,000 unit/gram topical 1 applic topical DAILY 04/21/24 10/24/24 ointment clonidine HCl 0.2 mg tablet 0.2 mg PO BEDTIME 07/21/24 10/24/24 olanzapine 10 mg tablet 10 mg PO ONCE PM 07/21/24 10/24/24 Previous Rx's ?Medication ?Instructions ?Recorded DISABLED PARKING PLACARD #1 ea 11/24/22 Depends Incontinence supplies #100 ea 03/15/23 Prevail Plus pads #90 ea 03/15/23 oxybutynin chloride 5 mg tablet 5 mg PO BID #60 tabs 06/15/23 clonidine HCl 0.1 mg tablet 0.2 mg (2 x 0.1 mg) PO BEDTIME #60 07/09/23 tabs magnesium 250 mg tablet 250 mg PO DAILY #10 tabs 07/24/23 allopurinol 300 mg tablet See Rx Instructions .Route 08/01/23 .COMPLEX #90 tabs atorvastatin 40 mg tablet 40 mg PO BEDTIME #90 tabs 12/17/23 bisacodyl 10 mg rectal suppository 10 mg LA DAILY PRN constipation 12/17/23 #30 ea simethicone 80 mg chewable tablet See Rx Instructions PO 6XD #30 tabs 12/17/23 ropinirole 0.25 mg tablet 0.5 mg (2 x 0.25 mg) PO DAILY #180 04/21/24 tabs olanzapine 10 mg-samidorphan 10 mg 1 tab PO DAILY #30 tabs 06/24/24 tablet gabapentin 300 mg capsule See Rx Instructions .Route 07/28/24 .COMPLEX #120 caps divalproex 500 mg tablet,extended See Rx Instructions PO BEDTIME #60 08/21/24 release 24 hr (Depakote ER) tabs divalproex 250 mg tablet,extended 250 mg PO DAILY #30 tabs 09/19/24 release 24 hr azithromycin 250 mg tablet 250 mg PO DAILY #3 tabs 10/01/24 benzonatate 100 mg capsule 100 mg PO TID PRN Cough #30 caps 10/01/24 cefdinir 300 mg capsule 300 mg PO BID #6 caps 10/01/24 triamcinolone acetonide 0.1 % 1 applic topical BID #15 grams 10/13/24 topical cream Lactobacillus acidophilus 10 10,000 mmu cells PO DAILY #14 caps 10/24/24 billion cell capsule glucose monitor #1 ea 10/24/24 glucose test strips #100 ea 10/24/24 lancets #100 ea 10/24/24 Allergies Allergy/AdvReac Type Severity Reaction Status Date / Time Sulfa (Sulfonamide Allergy Mild RASH Verified 10/24/24 13:31 Antibiotics) haloperidol (HALOPERIDOL) Allergy Unknown Verified 10/24/24 13:31 lithium (LITHIUM) Allergy Unknown Verified 10/24/24 13:31 risperidone (RISPERIDONE) Allergy Unknown Verified 10/24/24 13:31 lidocaine AdvReac Intermediate gait Verified 10/24/24 13:31 instability perphenazine AdvReac uncontrolled Verified 10/24/24 13:31 hand shaking Review of Systems Review of Systems Narrative: Pertinent positive and negative findings as per HPI Patient History Medical History Bipolar 1 disorder, depressed, partial remission Psychosis COVID-19 Bipolar 1 disorder, mixed, full remission Hyperlipidemia DM type 2 (diabetes mellitus, type 2) Bipolar I disorder, most recent episode depressed, severe without psychotic features Bipolar disorder (1989) Fractures (2007) Foot pain (~2002) Ankle pain (2007) Peripheral neuropathy (2013) Hayfever (~1989) Sleep apnea (08/2015) Hypertension Hypothyroidism Urinary incontinence Cataract (2011) Chicken pox Measles CTS (carpal tunnel syndrome) (1987) RLS (restless legs syndrome) (1999) Anxiety (1994) Depression (1961) Surgical History Anesthesia complication History of surgery (04/2008) History of carpal tunnel repair (~1997) Family History Child Age: 52 Arthritis Mother Heart disease Family history of fraternal twins Family history of identical twins Levin gestation with first Social History marital status: number of children: 2 household members: none lives independently: Yes caregiver/support person: No housing: house pets and animals: No education level: high school occupational status: unemployed leisure activities: reading and volunteer work other: walk,garden,visit friends,synagogue,word puzzles seatbelt use: always water heater temp set < 120 deg: Yes working smoke detector in home: Yes fire extinguisher in home: Yes carbon monox detector in home: Yes Smoking Status: Never smoker second hand exposure: No alcohol intake: current substance use type: does not use during the past year weight has: other well-balanced diet: rarely or never daily servings fruits/ve-1 caffeine: Yes eating out: 1-3 times/week frequency: 3-4 times per week duration: 15-30 minutes/day Smoking Status: Never smoker alcohol intake frequency: holidays/special occasions only Exam Initial Vital Signs Initial Vital Signs: Vital Signs Temperature 97.8 F 10/30/24 09:06 Pulse Rate 74 10/30/24 09:06 Respiratory Rate 16 10/30/24 09:06 Blood Pressure 151/70 H 10/30/24 09:06 Pulse Oximetry 90 L 10/30/24 09:06 Oxygen Delivery Method Room Air 10/30/24 09:06 General: Appears chronically ill, globally weak, flat affect HEENT: Dry mucous membranes, normal sclera with reactive pupils, Respiratory: Lungs are clear to auscultation, no wheezing no rales no rhonchi. Full and symmetrical air movement Cardiac: Regular rate and rhythm no murmurs no bruits Abdomen: Soft, nontender, no rebound or guarding, no flank pain Skin: Warm and dry, no rashes Neurologic: As she sitting in bed she seems to be listing to the right side. Remainder of neurologic exam is nonfocal and NIH score=0 Extremities: No trauma, well perfused, no lower extremity edema Psych: Cooperative, we will answer direct questions, seems slightly cognitively slowed Course Orders Ordered: ED Orders 10/30/24 09:34 XR chest 1V Stat EKG-12 Lead Stat 10/30/24 09:41 Covid-19 + FLU A/B + RSV - PCR Stat 10/30/24 09:45 Complete Blood Count AUTO DIFF Stat Comprehensive Metabolic Panel Stat Lactate (Lactic Acid) Stat Lipase Stat Magnesium Stat NT-proBNP (BNP-Adult 18+) Stat Procalcitonin Stat Troponin I Stat Valproic Acid (Depakene) Total Stat 10/30/24 10:10 Blood Culture Stat 10/30/24 12:02 CT head/brain wo con Stat 10/30/24 13:09 Urinalysis and Microscopic Stat Urine Culture Stat Discontinued Medications Sodium Chloride (Normal Saline 0.9%) 1,000 mls @ 1,000 mls/hr IV BOLUS ONE Stop: 10/30/24 10:25 Last Infusion: 10/30/24 11:22 Dose: Infused Documented By: Admin: 10/30/24 09:48 Dose: 1,000 mls/hr Documented By: MORGAN Sodium Chloride (Normal Saline 0.9%) 1,000 mls @ 1,000 mls/hr IV BOLUS ONE Stop: 10/30/24 12:42 Last Infusion: 10/30/24 13:16 Dose: Infused Documented By: Admin: 10/30/24 11:46 Dose: 1,000 mls/hr Documented By: MORGAN Vital Signs Vital signs: Vital Signs - 8 hr 10/30/24 09:06 Temperature 97.8 F Pulse Rate 74 Respiratory Rate 16 Blood Pressure 151/70 H Pulse Oximetry 90 L Oxygen Delivery Method Room Air Medical Decision Making Lab Data 10/30/24 09:45 10/30/24 09:45 Labs: Lab Results 10/30/24 10/30/24 10/30/24 Range/Units 09:41 09:45 13:09 WBC 8.6 (4.5-11.0) X10^3/uL RBC 4.00 (4.0-5.2) X10^6/uL Hgb 13.4 (12.0-16.0) g/dL Hct 39.6 (36-46) % MCV 99.0 (80-100) fL MCH 33.4 (26-34) PG MCHC 33.8 (30-36) % RDW 16.2 H (11.6-14.8) % Plt Count 159 (150-400) X10^3/uL Neut % (Auto) 58.4 (50-75) % Lymph % (Auto) 32.4 (25-40) % Norton % (Auto) 5.2 (3-14) % Eos % (Auto) 3.2 (2-4) % Baso % (Auto) 0.8 (0-2) % Neut # (Auto) 5000 (9480-0975) /uL Lymph # (Auto) 2800 (9514-5172) /uL Norton # (Auto) 400 (0-900) /uL Eos # (Auto) 300 (0-450) /uL Baso # (Auto) 100 (0-100) /uL Sodium 141 (137-145) mmol/L Potassium 4.0 (3.4-5.1) mmol/L Chloride 102 (98-107) mmol/L Carbon Dioxide 28 (22-32) mmol/L BUN 22 H (7-17) mg/dL Creatinine 0.92 (0.52-1.04) mg/dL Estimated GFR > 60 (>60) mL/min BUN/Creatinine Ratio 23.9 H (6-22) Glucose 148 H (70-99) mg/dL Lactate 1.2 (0.7-2.1) mmol/L Calcium 9.4 (8.4-10.2) mg/dL Magnesium 1.6 (1.6-2.3) mg/dL Total Bilirubin 0.7 (0.2-1.3) mg/dL AST 31 (14-36) IU/L ALT 21 (<35) IU/L Alkaline Phosphatase 72 (38-126) U/L Troponin I < 0.012 (0.01-0.034) ng/mL NT-Pro-B Natriuret Pep 120 (<125) pg/mL Total Protein 7.1 (6.3-8.2) g/dL Albumin 4.1 (3.5-5.0) g/dL Globulin 3.0 (1.7-4.1) g/dL Albumin/Globulin Ratio 1.4 (1.0-2.8) Lipase 79 (23-300) U/L Procalcitonin 0.072 (<0.5) ng/mL Urine Color Yellow Urine Appearance Clear Urine pH 6.0 (4.5-8.0) Ur Specific [place] 1.015 (1.000-1.035) Urine Protein Trace H (Negative) Urine Glucose (UA) 3+ H (Negative) g/dL Urine Ketones 1+ H (NEGATIVE) Urine Occult Blood Negative (Negative) Urine Nitrate Negative (Negative) Urine Bilirubin Negative (NEGATIVE) Urine Urobilinogen 1.0 (0.2) E.U./dL Ur Leukocyte Esterase Trace H (NEGATIVE) Urine RBC None seen (0-5/HPF) Urine WBC 5-10/hpf H (0-5/HPF) Ur Squamous Epith Cells 1-5 /hpf (0-5/HPF) Urine Bacteria Few (2-10) H (None) Ur Culture Indicated? Specimen cultured Vol Urine Centrifuged 10ml (spun) SARS-CoV-2 (PCR) Negative (Negative) Influenza A (RT-PCR) Flu a negative (NEGATIVE) Influenza B (RT-PCR) Flu b negative (NEGATIVE) RSV (PCR) Negative (Negative) MDM Narrative Medical decision making narrative: CC: Increasing weakness slightly altered mental status worse for the last 3 days but noticeable over the last couple of weeks Complicating co-morbidities: Patient lives in his assisted living facility. Recently hospitalized with pneumonia Data collected from: patient, daughter Medical records reviewed: Discharge summary from October 01 reviewed, similar presentation at that time Differential considered: Recurrent pneumonia, dehydration, acute renal failure, bladder infection, stroke, Exam documented above, pertinent findings include: Globally weak, unengaged, slightly lifting to the right but otherwise nonfocal exam. No abdominal pain lungs with shallow breathing but no obvious rhonchi appreciated Lab Test results independently reviewed as above. Pertinent findings: CBC is unremarkable Chemistries do not suggest acute abnormalities. Appropriate renal function Liver studies are reassuring Troponin is undetectable BNP is not elevated Procalcitonin is low suggesting absence of acute infection Independently reviewed EKG: Sinus rhythm at a rate of 64. No acute ischemic changes Imaging studies independently reviewed: Chest x-ray is unremarkable Treatments: 2 L of fluid Re-evaluations: 1200 findings reviewed with patient and her daughter. Still no thorough explanation. After a L of fluid she is still in the has 62 cc of urine in her bladder so a 2nd was given. Labs do not show dramatic dehydration. Depakote level will be obtained and will obtain a CT scan of her head see if there is any other explanations Discussion: 74-year-old woman with increasing weakness brought in by her daughter. After 2 L of fluid she is feeling significantly better. Able to get up and walk unassisted to the bathroom. No complaints of pain at this time. Workup is unremarkable. No sign of infection, minimally dehydrated at best, no acute renal failure, CT scan of the head is unremarkable this was done for altered mental status. She states that living in her assisted living facility she does not particularly like the food and that may be part of the overall dehydration. Talked about the importance of at least drinking water and her daughters going to help with some other snacks that maybe a bit more palatable. At this time there was no indication for infection, stroke, cardiac event or alternate reason that she would need further workup or hospitalization and she is discharged home Discharge Plan Departure Patient Disposition: Home Clinical Impression: Acute dehydration, Weakness Instructions: DI for Dehydration -- Adult Activity Restrictions/Additional Instructions: Thank you for coming in today You are given 2 L of fluid and that did seem to help quite a bit. I did not find any evidence for infection including pneumonias, bladder infection, intra-abdominal infection. There was no sign of a stroke or complications in your brain. Your kidney function and liver function are reassuring At this point I do not have a complete explanation for why things have gotten so weak but I am encouraged that you are feeling better with hydration Please do make a point of drinking water, electrolyte drinks or juice throughout the day. If you find that you are getting worse or develop any new symptoms, please feel free to return to the emergency department for further evaluation. Prescriptions: No Action Januvia 100 mg tablet 100 mg PO DAILY Sleep Aid (doxylamine) 25 mg tablet 25 mg PO BEDTIME clonidine HCl 0.2 mg tablet 0.2 mg PO BEDTIME olanzapine 10 mg tablet 10 mg PO ONCE PM gabapentin 300 mg capsule See Rx Instructions .ROUTE .COMPLEX Qty: 120 3RF Rx Instructions: 300 mg po qam and 900 mg po qpm; (DME) glucose monitor See Rx Instructions .Route .MEDSUPPLY Qty: 1 0RF Rx Instructions: As directed to check glucose twice daily (DME) glucose test strips See Rx Instructions .Route .MEDSUPPLY Qty: 100 3RF Rx Instructions: As directed to test glucose twice daily (DME) lancets See Rx Instructions .Route .MEDSUPPLY Qty: 100 3RF Rx Instructions: As directed to test glucose twice daily Lactobacillus acidophilus 10 billion cell capsule 10,000 mmu cells PO DAILY Qty: 14 0RF triamcinolone acetonide 0.1 % cream 1 applic topical BID Qty: 15 0RF (DME) DISABLED PARKING PLACARD See Rx Instructions .Route .MEDSUPPLY Qty: 1 0RF Rx Instructions: 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 levothyroxine 137 mcg tablet 137 mcg PO DAILY metformin 500 mg tablet 500 mg PO BID acetaminophen 325 mg tablet 650 mg PO Q6H Patient Comments: has not taken for months nystatin 100,000 unit/gram ointment 1 applic topical DAILY magnesium oxide 250 mg magnesium tablet 250 mg PO DAILY ropinirole 0.25 mg tablet 0.5 mg PO DAILY Qty: 180 2RF olanzapine-samidorphan 10-10 mg tablet 1 tab PO DAILY Qty: 30 3RF clonidine HCl 0.1 mg tablet 0.2 mg PO BEDTIME Qty: 60 3RF biotin 1 mg capsule 1 mg PO DAILY nystatin 100,000 unit/gram cream 1 applic topical DAILY polyethylene glycol 3350 [Miralax] 17 gram/dose powder 17 g PO BID empagliflozin 10 mg tablet 10 mg PO DAILY (DME) Depends Incontinence supplies XL See Rx Instructions .Route .MEDSUPPLY Qty: 100 3RF Rx Instructions: for three times daily changes (DME) Prevail Plus pads 6 See Rx Instructions .Route .MEDSUPPLY Qty: 90 3RF Rx Instructions: As directed oxybutynin chloride 5 mg tablet 5 mg PO BID Qty: 60 2RF allopurinol 300 mg tablet See Rx Instructions .ROUTE .COMPLEX Qty: 90 2RF Dose Instruction: TAKE 1 TABLET BY MOUTH DAILY FOR GOUT Rx Instructions: TAKE 1 TABLET BY MOUTH DAILY FOR GOUT atorvastatin 40 mg tablet 40 mg PO BEDTIME Qty: 90 0RF bisacodyl 10 mg suppository 10 mg LA DAILY PRN (Reason: constipation) Qty: 30 0RF simethicone 80 mg tablet,chewable See Rx Instructions PO 6XD Qty: 30 0RF Rx Instructions: 160mg orally x 6hours prn for GAS pain; divalproex [Depakote ER] 500 mg tablet extended release 24 hr See Rx Instructions PO BEDTIME Qty: 60 2RF Rx Instructions: take 2 x500mg along with 250mg tablet for total dose of 1250mg. divalproex 250 mg tablet extended release 24 hr 250 mg PO DAILY Qty: 30 2RF Rx Instructions: Take 250mg in addition to 2 x 500mg tablets for total dose 1250mg. magnesium 250 mg tablet 250 mg PO DAILY Qty: 10 0RF benzonatate 100 mg Capsule 100 mg PO TID PRN (Reason: Cough) Qty: 30 0RF azithromycin 250 mg tablet 250 mg PO DAILY Qty: 3 0RF cefdinir 300 mg capsule 300 mg PO BID Qty: 6 0RF Referrals: Alina Corcoran MD [Primary Care Provider, Family Practice] Stand Alone Forms: Patient Portal/API
--- NOTE | 2024-10-30 09:34 | EKG_ITS ---
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
--- NOTE | 2024-10-30 09:34 | DI.RAD.S_ITS ---
PROCEDURE: XR CHEST 1V INDICATIONS: dyspnea TECHNIQUE: One view of the chest was acquired. COMPARISON: [facility], CR, XR CHEST 1V, 09/28/2024, 14:30. [facility], CR, XR CHEST 1V, 02/03/2024, 6:11. FINDINGS: Surgical changes and devices: None. Lungs and pleura: Lungs are clear but inspiratory volume is reduced, greater on the right than the left. No pleural effusions or pneumothorax. Mediastinum: Mediastinal contours appear normal. Heart size is normal. Bones and chest wall: No suspicious bony lesions. Overlying soft tissues appear unremarkable. IMPRESSION: Prominent reduced inspiratory volume, right greater than left. Asymmetric elevation of the right hemidiaphragm has been previously present. Cause is indeterminate. No pneumonia found. Dictated by: Mik Wall M.D. on 10/30/2024 at 10:07 Approved by: Mik Wall M.D. on 10/30/2024 at 10:09
[2024-10-30] MEDS: SODIUM CHLORIDE 0.9% 1,000 ML 1000 ML IV ×2 (09:48→11:46)
[2024-10-30 09:58] LABS: Add Manual Diff / Slide Review NO; Hematocrit 39.6 % (36-46); Hemoglobin 13.4 g/dL (12.0-16.0); Lymphocytes Absolute Auto 2800 /uL (1100-4500); Mean Corpuscular HGB Conc 33.8 % (30-36); Mean Corpuscular Hemoglobin 33.4 PG (26-34); Mean Corpuscular Volume 99.0 fL (80-100); Platelet Count 159 X10^3/uL (150-400)
[2024-10-30 10:09] LABS: Alanine Aminotransferase 21 IU/L (<35); Albumin 4.1 g/dL (3.5-5.0); Albumin Globulin Ratio 1.4 (1.0-2.8); Alkaline Phosphatase 72 U/L (38-126); Blood Urea Nitrogen 22 mg/dL (7-17); Calcium 9.4 mg/dL (8.4-10.2); Carbon Dioxide 28 mmol/L (22-32); Chloride 102 mmol/L (98-107); Estimated Glomerular Filt Rate > 60 mL/min (>60); Globulin 3.0 g/dL (1.7-4.1); Glucose 148 mg/dL (70-99); HEMOLYSIS 22 (0-50); Lipase 79 U/L (23-300); Magnesium 1.6 mg/dL (1.6-2.3); Potassium 4.0 mmol/L (3.4-5.1); Sodium 141 mmol/L (137-145); Total Protein 7.1 g/dL (6.3-8.2)
[2024-10-30 10:10] LABS: Lactate (Lactic Acid) 1.2 mmol/L (0.7-2.1)
[2024-10-30 10:22] LABS: COVID-19 CEPHEID 4-PLEX PCR Negative (Negative); Influenza A - CEPHEID Flu A NEGATIVE (NEGATIVE); Influenza B - CEPHEID Flu B NEGATIVE (NEGATIVE)
[2024-10-30 10:22] LABS: NT-proBNP (BNP-Adult 18+) 120 pg/mL (<125); Troponin I < 0.012 ng/mL (0.01-0.034)
[2024-10-30 10:26] LABS: Procalcitonin 0.072 ng/mL (<0.5)
--- NOTE | 2024-10-30 12:02 | DI.CT.S_ITS ---
PROCEDURE: CT HEAD/BRAIN WO CON INDICATIONS: altered mental status TECHNIQUE: Noncontrast 4.5 mm thick angled axial sections acquired from the foramen magnum to the vertex, with coronal and sagittal reformats. For radiation dose reduction, the following was used: automated exposure control, adjustment of mA and/or kV according to patient size. COMPARISON: [facility], CT, CT HEAD/BRAIN WO CON, 07/29/2023, 10:20. [facility], CT, CT HEAD/BRAIN WO CON, 03/15/2022, 18:21. FINDINGS: Image quality: Diagnostic. CSF spaces: Basal cisterns are patent. No extra-axial fluid collections. The ventricles are symmetric in size and shape. Brain: No intracranial bleeds or mass effect. There is cerebral volume loss, with resultant ventricular and sulcal prominence. There are periventricular and deep white matter chronic small vessel ischemic changes. There is intracranial internal carotid artery atherosclerosis. Skull and face: Calvarium and visualized facial bones appear intact, without suspicious lesions. Sinuses: Visualized sinuses and mastoids are clear. IMPRESSION: No acute intracranial pathology. Dictated by: Mik Wall M.D. on 10/30/2024 at 12:38 Approved by: Mik Wall M.D. on 10/30/2024 at 12:40
[2024-10-30 13:27] LABS: Appearance Urine UA CLEAR; Bilirubin Urine UA NEGATIVE (NEGATIVE); Color Urine UA YELLOW; Glucose Urine UA 3+ g/dL (Negative); Ketones Urine UA 1+ (NEGATIVE); Leukocyte Esterase Urine UA TRACE (NEGATIVE); Nitrite Urine UA NEGATIVE (Negative); Occult Blood Urine UA NEGATIVE (Negative); Protein Urine UA TRACE (Negative); Specific Gravity Urine UA 1.015 (1.000-1.035); Urobilinogen Urine UA 1.0 E.U./dL (0.2)
[2024-10-30 13:32] VITALS: PULSE 60; O2SAT 92
[2024-10-30 13:32] LABS: pH Urine UA 6.0 (4.5-8.0)
[2024-10-30 13:33] VITALS: BP 119/58; PULSE 60; O2SAT 90
[2024-10-30 13:35] LABS: Culture Indicated Urine Specimen Cultured
[2024-10-30 14:00] VITALS: PULSE 66; O2SAT 92
[2024-10-30 14:01] VITALS: BP 124/56; PULSE 66; O2SAT 91
[2024-10-30 14:30] VITALS: BP 129/58; PULSE 62; O2SAT 91
[2024-10-31 04:11] LABS: Valproic Acid (Depakene) Total 95 ug/mL (50-100)
== END 2024-10-30 14:55 | disposition home or self-care (01) ==
PROVIDERS: Emergency Provider Emergency Medicine; PCP Family Medicine
DX: E86.0 Dehydration (principal); R53.1 Weakness
CPT/HCPCS: 36415; 70450; 71045; 80053; 80164; 81001; 83605; 83690; 83735; 83880; 84145; 84484; 85025; 87040; 87086; 87637; 93005; 96360; 96361; 99284

== ENCOUNTER 2024-10-31 14:32 | Emergency (ER) | payer MEDICARE, MEDICAID, SELFPAY ==
[2024-09-28 17:56] VITALS: BMI 38.2
[2024-10-31] VITALS (16 sets, daily range): BP systolic 126–150; BP diastolic 59–75; PULSE 69–86; RESP 16–18; TEMP 37; O2SAT 91–100; BMI 38.7
--- NOTE | 2024-10-31 14:45 | DI.RAD.S_ITS ---
PROCEDURE: XR CHEST 1V INDICATIONS: altered mental status TECHNIQUE: One view of the chest was acquired. COMPARISON: [facility], CT, CT ANGIO CHEST PE PROTOCOL, 09/28/2024, 14:51. [facility], CR, XR CHEST 1V, 09/28/2024, 14:30. [facility], CR, XR CHEST 1V, 10/30/2024, 9:30. FINDINGS: Surgical changes and devices: None. Lungs and pleura: An incomplete inspiratory result is noted, causing a crowded appearance to the lung markings. No focal infiltrates are seen. No pneumothorax or significant pleural effusions are seen. Mediastinum: The cardiac contours are within normal limits. The aorta demonstrates calcification and tortuosity. Bones and chest wall: No suspicious bony lesions. Age-appropriate bony degenerative changes are seen. Overlying soft tissues appear unremarkable. IMPRESSION: Low lung volumes, without an acute abnormality seen by plain film. Dictated by: Stephane Meza M.D. on 10/31/2024 at 14:46 Approved by: Stephane Meza M.D. on 10/31/2024 at 14:46
--- NOTE | 2024-10-31 14:45 | EKG_ITS ---
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
[2024-10-31 15:16] LABS: Add Manual Diff / Slide Review NO; Hematocrit 38.6 % (36-46); Hemoglobin 13.2 g/dL (12.0-16.0); Lymphocytes Absolute Auto 1700 /uL (1100-4500); Mean Corpuscular HGB Conc 34.3 % (30-36); Mean Corpuscular Hemoglobin 33.9 PG (26-34); Mean Corpuscular Volume 99.0 fL (80-100); Platelet Count 180 X10^3/uL (150-400)
[2024-10-31 15:38] LABS: Alanine Aminotransferase 22 IU/L (<35); Albumin 4.3 g/dL (3.5-5.0); Albumin Globulin Ratio 1.4 (1.0-2.8); Alkaline Phosphatase 88 U/L (38-126); Blood Urea Nitrogen 13 mg/dL (7-17); Calcium 9.6 mg/dL (8.4-10.2); Carbon Dioxide 26 mmol/L (22-32); Chloride 104 mmol/L (98-107); Creatine Kinase 45 U/L (30-135); Estimated Glomerular Filt Rate > 60 mL/min (>60); Ethanol (ETOH) < 10 mg/dL (<10); Globulin 3.1 g/dL (1.7-4.1); Glucose 120 mg/dL (70-99); HEMOLYSIS < 15 (0-50); Lactate (Lactic Acid) 2.8 mmol/L (0.7-2.1); Potassium 4.3 mmol/L (3.4-5.1); Sodium 142 mmol/L (137-145); Total Protein 7.4 g/dL (6.3-8.2)
[2024-10-31 15:51] LABS: Troponin I < 0.012 ng/mL (0.01-0.034)
[2024-10-31 15:56] LABS: Procalcitonin 0.061 ng/mL (<0.5)
[2024-10-31 16:38] LABS: Ammonia (NH3) < 9 umol/L (9-30)
[2024-10-31 16:46] LABS: Reflexed Lactate in 2 Hours Y
[2024-10-31] MEDS: SODIUM CHLORIDE 0.9% 1,000 ML 1000 ML IV (17:15)
[2024-10-31 17:31] LABS: Lactate 2HR (Lactic Acid Rflx) 1.2 mmol/L (0.7-2.1)
--- NOTE | 2024-10-31 18:05 | ED.GENADULT ---
HPI - General Adult General Chief complaint: Weakness Stated complaint: here yesterday, not feeling better from [facility] Time Seen by Provider: 10/31/24 18:04 History of Present Illness HPI narrative: (most history obtained from daughter at bedside) 74-year-old female resident of [facility] with history of bipolar disorder, hypertension, hyperthyroidism, anxiety, diabetes, had pneumonia one month ago, course of antibiotics, subsequent diarrhea that resolved, with recent generalized weakness. Seen here yesterday with evaluation for generalized weakness including head CT scan and labs and chest x-ray and COVID swab per daughter at bedside, was given 2 L of IV fluids, suspected dehydration, discharged back to [facility] yesterday. Has ongoing generalized weakness. Denies sensation of shortness of breath but does feel better on oxygen that was placed. Denies pain to chest, upper mid lower back, head, neck, upper extremities, lower extremities. Denies lower extremity pain or swelling. PCP [facility] Related Data Home Medications ?Medication ?Instructions ?Recorded ?Confirmed levothyroxine 137 mcg tablet 137 mcg PO DAILY 12/03/23 10/24/24 metformin 500 mg tablet 500 mg PO BID 12/03/23 10/24/24 doxylamine succinate 25 mg tablet 25 mg PO BEDTIME 01/01/24 10/24/24 (Sleep Aid (doxylamine)) sitagliptin phosphate 100 mg 100 mg PO DAILY 01/01/24 10/24/24 tablet (Januvia) biotin 1 mg capsule 1 mg PO DAILY 03/03/24 10/24/24 empagliflozin 10 mg tablet 10 mg PO DAILY 03/03/24 10/24/24 nystatin 100,000 unit/gram topical 1 applic topical DAILY 03/03/24 10/24/24 cream polyethylene glycol 3350 17 17 g PO BID 03/03/24 10/24/24 gram/dose oral powder (Miralax) acetaminophen 325 mg tablet 650 mg PO Q6H pain 04/21/24 10/24/24 magnesium oxide 250 mg PO DAILY 04/21/24 10/24/24 nystatin 100,000 unit/gram topical 1 applic topical DAILY 04/21/24 10/24/24 ointment clonidine HCl 0.2 mg tablet 0.2 mg PO BEDTIME 07/21/24 10/24/24 olanzapine 10 mg tablet 10 mg PO ONCE PM 07/21/24 10/24/24 Previous Rx's ?Medication ?Instructions ?Recorded DISABLED [employer] #1 ea 11/24/22 Depends Incontinence supplies #100 ea 03/15/23 Prevail Plus pads #90 ea 03/15/23 oxybutynin chloride 5 mg tablet 5 mg PO BID #60 tabs 06/15/23 clonidine HCl 0.1 mg tablet 0.2 mg (2 x 0.1 mg) PO BEDTIME #60 07/09/23 tabs magnesium 250 mg tablet 250 mg PO DAILY #10 tabs 07/24/23 allopurinol 300 mg tablet See Rx Instructions .Route 08/01/23 .COMPLEX #90 tabs atorvastatin 40 mg tablet 40 mg PO BEDTIME #90 tabs 12/17/23 bisacodyl 10 mg rectal suppository 10 mg NH DAILY PRN constipation 12/17/23 #30 ea simethicone 80 mg chewable tablet See Rx Instructions PO 6XD #30 tabs 12/17/23 ropinirole 0.25 mg tablet 0.5 mg (2 x 0.25 mg) PO DAILY #180 04/21/24 tabs olanzapine 10 mg-samidorphan 10 mg 1 tab PO DAILY #30 tabs 06/24/24 tablet gabapentin 300 mg capsule See Rx Instructions .Route 07/28/24 .COMPLEX #120 caps divalproex 500 mg tablet,extended See Rx Instructions PO BEDTIME #60 08/21/24 release 24 hr (Depakote ER) tabs divalproex 250 mg tablet,extended 250 mg PO DAILY #30 tabs 09/19/24 release 24 hr azithromycin 250 mg tablet 250 mg PO DAILY #3 tabs 10/01/24 benzonatate 100 mg capsule 100 mg PO TID PRN Cough #30 caps 10/01/24 cefdinir 300 mg capsule 300 mg PO BID #6 caps 10/01/24 triamcinolone acetonide 0.1 % 1 applic topical BID #15 grams 10/13/24 topical cream Lactobacillus acidophilus 10 10,000 mmu cells PO DAILY #14 caps 10/24/24 billion cell capsule glucose monitor #1 ea 10/24/24 glucose test strips #100 ea 10/24/24 lancets #100 ea 10/24/24 Allergies Allergy/AdvReac Type Severity Reaction Status Date / Time Sulfa (Sulfonamide Allergy Mild RASH Verified 10/24/24 13:31 Antibiotics) haloperidol (HALOPERIDOL) Allergy Unknown Verified 10/24/24 13:31 lithium (LITHIUM) Allergy Unknown Verified 10/24/24 13:31 risperidone (RISPERIDONE) Allergy Unknown Verified 10/24/24 13:31 lidocaine AdvReac Intermediate gait Verified 10/24/24 13:31 instability perphenazine AdvReac uncontrolled Verified 10/24/24 13:31 hand shaking Patient History Medical History Bipolar 1 disorder, depressed, partial remission Psychosis COVID-19 Bipolar 1 disorder, mixed, full remission Hyperlipidemia DM type 2 (diabetes mellitus, type 2) Bipolar I disorder, most recent episode depressed, severe without psychotic features Bipolar disorder (1989) Fractures (2007) Foot pain (~2002) Ankle pain (2007) Peripheral neuropathy (2013) Hayfever (~1989) Sleep apnea (08/2015) Hypertension Hypothyroidism Urinary incontinence Cataract (2011) Chicken pox Measles CTS (carpal tunnel syndrome) (1987) RLS (restless legs syndrome) (1999) Anxiety (1994) Depression (1961) Surgical History Anesthesia complication History of surgery (04/2008) History of carpal tunnel repair (~1997) Family History Child Age: 52 Arthritis Mother Heart disease Family history of fraternal twins Family history of identical twins Levin gestation with first Social History marital status: number of children: 2 household members: none lives independently: Yes caregiver/support person: No housing: house pets and animals: No education level: high school occupational status: unemployed leisure activities: reading and volunteer work other: walk,garden,visit friends,yazdanism,word puzzles seatbelt use: always water heater temp set < 120 deg: Yes working smoke detector in home: Yes fire extinguisher in home: Yes carbon monox detector in home: Yes second hand exposure: No alcohol intake: current substance use type: does not use during the past year weight has: other well-balanced diet: rarely or never daily servings fruits/ve-1 caffeine: Yes eating out: 1-3 times/week frequency: 3-4 times per week duration: 15-30 minutes/day alcohol intake frequency: holidays/special occasions only Exam Narrative Exam Narrative: GENERAL: Well-developed patient, in mild distress. HEAD: Atraumatic. Normocephalic. EYES: Pupils equal round and reactive. Extraocular motions intact. No scleral icterus. No injection or drainage. ENT: Nose without bleeding, purulent drainage. Throat without erythema, tonsillar hypertrophy or exudate. Airway patent. Wearing nasal cannula at 2 L flow. NECK: Trachea midline. Non tender CARDIOVASCULAR: Regular rate and rhythm without murmurs, gallops, or rubs. RESPIRATORY: Clear to auscultation. Breath sounds equal bilaterally. No wheezes, rales, or rhonchi. GASTROINTESTINAL: Abdomen soft, non-tender, nondistended. EXTREMITIES: No edema or joint tenderness. BACK: Nontender without deformity or crepitance. No flank tenderness. NEURO: AOx3. Motor functions grossly nonfocal. SKIN: No rash or erythema of visible areas Initial Vital Signs Initial Vital Signs: Vital Signs Temperature 98.6 F 10/31/24 14:33 Pulse Rate 86 10/31/24 14:33 Respiratory Rate 16 10/31/24 14:33 Blood Pressure 141/74 H 10/31/24 14:33 Pulse Oximetry 93 10/31/24 14:33 Oxygen Delivery Method Room Air 10/31/24 14:33 Course Orders Ordered: ED Orders 10/31/24 18:02 Valproic Acid (Depakene) Total Stat 10/31/24 21:00 Urinalysis and Microscopic Stat Urine Drug Screen, Rapid Stat 10/31/24 21:10 Trop I [Troponin I] Stat 10/31/24 22:00 Blood Culture Stat Lactate (Lactic Acid) Stat Discontinued Medications Sodium Chloride (Normal Saline 0.9%) 1,000 mls @ 1,000 mls/hr IV BOLUS ONE Stop: 10/31/24 18:01 Last Infusion: 10/31/24 18:49 Dose: Infused Documented By: Admin: 10/31/24 17:15 Dose: 1,000 mls/hr Documented By: GIAN Vital Signs Vital signs: Vital Signs - 8 hr 10/31/24 19:00 10/31/24 19:30 10/31/24 20:00 Temperature Pulse Rate 76 75 77 Respiratory Rate Blood Pressure Pulse Oximetry 92 91 94 Oxygen Delivery Method Room Air 10/31/24 20:01 10/31/24 20:01 10/31/24 20:30 Temperature Pulse Rate 78 77 Respiratory Rate Blood Pressure 150/75 H Pulse Oximetry 94 93 Oxygen Delivery Method 10/31/24 20:31 10/31/24 20:31 10/31/24 21:00 Temperature Pulse Rate 72 72 Respiratory Rate Blood Pressure 142/75 H Pulse Oximetry 93 92 Oxygen Delivery Method 10/31/24 21:01 10/31/24 21:01 10/31/24 21:31 Temperature Pulse Rate 72 69 Respiratory Rate Blood Pressure 147/67 H 141/67 H Pulse Oximetry 94 92 Oxygen Delivery Method 10/31/24 22:01 11/01/24 01:41 Temperature 99.4 F Pulse Rate 69 80 Respiratory Rate 18 16 Blood Pressure 126/59 L 152/76 H Pulse Oximetry 94 94 Oxygen Delivery Method Room Air Room Air Medical Decision Making Lab Data Lab results reviewed: Yes I reviewed the patient's lab results. Lab results narrative: White blood cell count 78184, hemoglobin 13.2, platelets adequate. Glucose 120. Renal function normal, normal serum CO2 and electrolytes. Liver functions and lipase normal. Initial lactate 2.8 elevated, IV fluids given, repeat lactate 1.2 improved. Ammonia negative. Troponin negative/unmeasurable. Urinalysis pending. 10/31/24 15:00 10/31/24 15:00 Labs: Lab Results 10/31/24 10/31/24 10/31/24 Range/Units 15:00 16:21 17:11 WBC 10.8 (4.5-11.0) X10^3/uL RBC 3.90 L (4.0-5.2) X10^6/uL Hgb 13.2 (12.0-16.0) g/dL Hct 38.6 (36-46) % MCV 99.0 (80-100) fL MCH 33.9 (26-34) PG MCHC 34.3 (30-36) % RDW 16.4 H (11.6-14.8) % Plt Count 180 (150-400) X10^3/uL Neut % (Auto) 77.0 H (50-75) % Lymph % (Auto) 15.5 L (25-40) % [place] % (Auto) 5.3 (3-14) % Eos % (Auto) 1.5 L (2-4) % Baso % (Auto) 0.7 (0-2) % Neut # (Auto) 8300 H (7489-7607) /uL Lymph # (Auto) 1700 (6624-8914) /uL [place] # (Auto) 600 (0-900) /uL Eos # (Auto) 200 (0-450) /uL Baso # (Auto) 100 (0-100) /uL Sodium 142 (137-145) mmol/L Potassium 4.3 (3.4-5.1) mmol/L Chloride 104 (98-107) mmol/L Carbon Dioxide 26 (22-32) mmol/L BUN 13 (7-17) mg/dL Creatinine 0.87 (0.52-1.04) mg/dL Estimated GFR > 60 (>60) mL/min BUN/Creatinine Ratio 14.9 (6-22) Glucose 120 H (70-99) mg/dL Lactate 2.8 H 1.2 (0.7-2.1) mmol/L Calcium 9.6 (8.4-10.2) mg/dL Total Bilirubin 0.5 (0.2-1.3) mg/dL AST 30 (14-36) IU/L ALT 22 (<35) IU/L Alkaline Phosphatase 88 (38-126) U/L Ammonia < 9 L (9-30) umol/L Total Creatine Kinase 45 (30-135) U/L Troponin I < 0.012 (0.01-0.034) ng/mL Total Protein 7.4 (6.3-8.2) g/dL Albumin 4.3 (3.5-5.0) g/dL Globulin 3.1 (1.7-4.1) g/dL Albumin/Globulin Ratio 1.4 (1.0-2.8) Procalcitonin 0.061 (<0.5) ng/mL TSH 0.428 L (0.47-4.68) uIU/mL Urine Color Urine Appearance Urine pH (4.5-8.0) Ur Specific [place] (1.000-1.035) Urine Protein (Negative) Urine Glucose (UA) (Negative) g/dL Urine Ketones (NEGATIVE) Urine Occult Blood (Negative) Urine Nitrate (Negative) Urine Bilirubin (NEGATIVE) Urine Urobilinogen (0.2) E.U./dL Ur Leukocyte Esterase (NEGATIVE) Urine RBC (0-5/HPF) Urine WBC (0-5/HPF) Ur Squamous Epith Cells (0-5/HPF) Urine Bacteria (None) Ur Culture Indicated? Vol Urine Centrifuged U Opiates 300ng/mL cut (Negative) Ur Oxycodone Screen (Negative) Urine Methadone Screen (Negative) Ur Barbiturates Screen (Negative) U Tricyclic Antidepress (Negative) Ur Phencyclidine Scrn (Negative) Ur Amphetamines Screen (Negative) U Methamphetamines Scrn (Negative) Ur MDMA Scrn (Ecstasy) (Negative) U Benzodiazepines Scrn (Negative) Urine Cocaine Screen (Negative) U Marijuana (THC) Screen (Negative) Urine Specific [place] (Normal) Ethyl Alcohol < 10 (<10) mg/dL Ur Creatinine (Normal) A.calcoaceticus-baumannii cmplx PCR (Not Detect) Bacteroides fragilis (Not Detect) Sharon albicans (PCR) (Not Detect) Sharon auris (PCR) (Not Detect) C. glabrata (PCR) (Not Detect) C. krusei (PCR) (Not Detect) C. parapsilosis (PCR) (Not Detect) C. tropicalis (PCR) (Not Detect) C. neoform/gattii (PCR) (Not Detect) Enterobacterales (PCR) (Not Detect) E. cloacae complex PCR (Not Detect) Enterococc faecalis PCR (Not Detect) Enterococc faecium PCR (Not Detect) E. coli (PCR) (Not Detect) H. influenzae (PCR) (Not Detect) Klebsiella aerogenes (PCR) (Not Detect) Klebsiella oxytoca PCR (Not Detect) Klebsiella pneumoniae (Not Detect) List. monocytogenes PCR (Not Detect) N. meningitidis (PCR) (Not Detect) Proteus species (PCR) (Not Detect) Salmonella spp. (PCR) (Not Detect) Serratia marcescens PCR (Not Detect) Staphylococcus sp PCR (Not Detect) Staph aureus (PCR) (Not Detect) mecA/C & MREJ Resist Gene (Not Detect) mecA/C-Methicil Resis Gene (Not Detect) mcr-1 Colistin Res Gene PCR (Not Detect) Staph epidermidis (PCR) (Not Detect) Staph lugdunensis PCR (Not Detect) S. maltophilia (PCR) (Not Detect) Streptococcus sp PCR (Not Detect) Group A Strep (PCR) (Not Detect) Strep agalactiae (PCR) (Not Detect) Strep pneumoniae (PCR) (Not Detect) P. aeruginosa (PCR) (Not Detect) Jt/B-Vanco Res Genes (Not Detect) blaIMP Car res Gene PCR (Not Detect) KPC-Carbap Res Gene PCR (Not Detect) blaNDM Car Res Gene PCR (Not Detect) OXA-48 Carbapenem Resis Gene (PCR) (Not Detect) blaVIM Car Res Gene PCR (Not Detect) CTX-M Gene Resistance (PCR) (Not Detect) 10/31/24 10/31/24 10/31/24 Range/Units 21:00 21:00 21:10 WBC (4.5-11.0) X10^3/uL RBC (4.0-5.2) X10^6/uL Hgb (12.0-16.0) g/dL Hct (36-46) % MCV (80-100) fL MCH (26-34) PG MCHC (30-36) % RDW (11.6-14.8) % Plt Count (150-400) X10^3/uL Neut % (Auto) (50-75) % Lymph % (Auto) (25-40) % [place] % (Auto) (3-14) % Eos % (Auto) (2-4) % Baso % (Auto) (0-2) % Neut # (Auto) (6748-8450) /uL Lymph # (Auto) (5776-6147) /uL [place] # (Auto) (0-900) /uL Eos # (Auto) (0-450) /uL Baso # (Auto) (0-100) /uL Sodium (137-145) mmol/L Potassium (3.4-5.1) mmol/L Chloride (98-107) mmol/L Carbon Dioxide (22-32) mmol/L BUN (7-17) mg/dL Creatinine (0.52-1.04) mg/dL Estimated GFR (>60) mL/min BUN/Creatinine Ratio (6-22) Glucose (70-99) mg/dL Lactate (0.7-2.1) mmol/L Calcium (8.4-10.2) mg/dL Total Bilirubin (0.2-1.3) mg/dL AST (14-36) IU/L ALT (<35) IU/L Alkaline Phosphatase (38-126) U/L Ammonia (9-30) umol/L Total Creatine Kinase (30-135) U/L Troponin I < 0.012 (0.01-0.034) ng/mL Total Protein (6.3-8.2) g/dL Albumin (3.5-5.0) g/dL Globulin (1.7-4.1) g/dL Albumin/Globulin Ratio (1.0-2.8) Procalcitonin (<0.5) ng/mL TSH (0.47-4.68) uIU/mL Urine Color Yellow Urine Appearance Clear Urine pH 6.0 Normal (4.5-8.0) Ur Specific [place] 1.015 (1.000-1.035) Urine Protein Trace H (Negative) Urine Glucose (UA) 3+ H (Negative) g/dL Urine Ketones Trace H (NEGATIVE) Urine Occult Blood Negative (Negative) Urine Nitrate Negative (Negative) Urine Bilirubin Negative (NEGATIVE) Urine Urobilinogen 0.2 (0.2) E.U./dL Ur Leukocyte Esterase Negative (NEGATIVE) Urine RBC 0-1/hpf (0-5/HPF) Urine WBC 1-5/hpf (0-5/HPF) Ur Squamous Epith Cells 1-5 /hpf (0-5/HPF) Urine Bacteria Occasional (0-1) (None) Ur Culture Indicated? Cult not indicated Vol Urine Centrifuged 10ml (spun) U Opiates 300ng/mL cut Negative (Negative) Ur Oxycodone Screen Positive H (Negative) Urine Methadone Screen Negative (Negative) Ur Barbiturates Screen Negative (Negative) U Tricyclic Antidepress Negative (Negative) Ur Phencyclidine Scrn Negative (Negative) Ur Amphetamines Screen Negative (Negative) U Methamphetamines Scrn Negative (Negative) Ur MDMA Scrn (Ecstasy) Negative (Negative) U Benzodiazepines Scrn Negative (Negative) Urine Cocaine Screen Negative (Negative) U Marijuana (THC) Screen Negative (Negative) Urine Specific [place] Normal (Normal) Ethyl Alcohol (<10) mg/dL Ur Creatinine Normal (Normal) A.calcoaceticus-baumannii cmplx PCR (Not Detect) Bacteroides fragilis (Not Detect) Sharon albicans (PCR) (Not Detect) Sharon auris (PCR) (Not Detect) C. glabrata (PCR) (Not Detect) C. krusei (PCR) (Not Detect) C. parapsilosis (PCR) (Not Detect) C. tropicalis (PCR) (Not Detect) C. neoform/gattii (PCR) (Not Detect) Enterobacterales (PCR) (Not Detect) E. cloacae complex PCR (Not Detect) Enterococc faecalis PCR (Not Detect) Enterococc faecium PCR (Not Detect) E. coli (PCR) (Not Detect) H. influenzae (PCR) (Not Detect) Klebsiella aerogenes (PCR) (Not Detect) Klebsiella oxytoca PCR (Not Detect) Klebsiella pneumoniae (Not Detect) List. monocytogenes PCR (Not Detect) N. meningitidis (PCR) (Not Detect) Proteus species (PCR) (Not Detect) Salmonella spp. (PCR) (Not Detect) Serratia marcescens PCR (Not Detect) Staphylococcus sp PCR (Not Detect) Staph aureus (PCR) (Not Detect) mecA/C & MREJ Resist Gene (Not Detect) mecA/C-Methicil Resis Gene (Not Detect) mcr-1 Colistin Res Gene PCR (Not Detect) Staph epidermidis (PCR) (Not Detect) Staph lugdunensis PCR (Not Detect) S. maltophilia (PCR) (Not Detect) Streptococcus sp PCR (Not Detect) Group A Strep (PCR) (Not Detect) Strep agalactiae (PCR) (Not Detect) Strep pneumoniae (PCR) (Not Detect) P. aeruginosa (PCR) (Not Detect) Jt/B-Vanco Res Genes (Not Detect) blaIMP Car res Gene PCR (Not Detect) KPC-Carbap Res Gene PCR (Not Detect) blaNDM Car Res Gene PCR (Not Detect) OXA-48 Carbapenem Resis Gene (PCR) (Not Detect) blaVIM Car Res Gene PCR (Not Detect) CTX-M Gene Resistance (PCR) (Not Detect) 10/31/24 Range/Units 22:00 WBC (4.5-11.0) X10^3/uL RBC (4.0-5.2) X10^6/uL Hgb (12.0-16.0) g/dL Hct (36-46) % MCV (80-100) fL MCH (26-34) PG MCHC (30-36) % RDW (11.6-14.8) % Plt Count (150-400) X10^3/uL Neut % (Auto) (50-75) % Lymph % (Auto) (25-40) % [place] % (Auto) (3-14) % Eos % (Auto) (2-4) % Baso % (Auto) (0-2) % Neut # (Auto) (6608-1324) /uL Lymph # (Auto) (1934-5607) /uL [place] # (Auto) (0-900) /uL Eos # (Auto) (0-450) /uL Baso # (Auto) (0-100) /uL Sodium (137-145) mmol/L Potassium (3.4-5.1) mmol/L Chloride (98-107) mmol/L Carbon Dioxide (22-32) mmol/L BUN (7-17) mg/dL Creatinine (0.52-1.04) mg/dL Estimated GFR (>60) mL/min BUN/Creatinine Ratio (6-22) Glucose (70-99) mg/dL Lactate 0.7 (0.7-2.1) mmol/L Calcium (8.4-10.2) mg/dL Total Bilirubin (0.2-1.3) mg/dL AST (14-36) IU/L ALT (<35) IU/L Alkaline Phosphatase (38-126) U/L Ammonia (9-30) umol/L Total Creatine Kinase (30-135) U/L Troponin I (0.01-0.034) ng/mL Total Protein (6.3-8.2) g/dL Albumin (3.5-5.0) g/dL Globulin (1.7-4.1) g/dL Albumin/Globulin Ratio (1.0-2.8) Procalcitonin (<0.5) ng/mL TSH (0.47-4.68) uIU/mL Urine Color Urine Appearance Urine pH (4.5-8.0) Ur Specific [place] (1.000-1.035) Urine Protein (Negative) Urine Glucose (UA) (Negative) g/dL Urine Ketones (NEGATIVE) Urine Occult Blood (Negative) Urine Nitrate (Negative) Urine Bilirubin (NEGATIVE) Urine Urobilinogen (0.2) E.U./dL Ur Leukocyte Esterase (NEGATIVE) Urine RBC (0-5/HPF) Urine WBC (0-5/HPF) Ur Squamous Epith Cells (0-5/HPF) Urine Bacteria (None) Ur Culture Indicated? Vol Urine Centrifuged U Opiates 300ng/mL cut (Negative) Ur Oxycodone Screen (Negative) Urine Methadone Screen (Negative) Ur Barbiturates Screen (Negative) U Tricyclic Antidepress (Negative) Ur Phencyclidine Scrn (Negative) Ur Amphetamines Screen (Negative) U Methamphetamines Scrn (Negative) Ur MDMA Scrn (Ecstasy) (Negative) U Benzodiazepines Scrn (Negative) Urine Cocaine Screen (Negative) U Marijuana (THC) Screen (Negative) Urine Specific [place] (Normal) Ethyl Alcohol (<10) mg/dL Ur Creatinine (Normal) A.calcoaceticus-baumannii cmplx PCR Not detected (Not Detect) Bacteroides fragilis Not detected (Not Detect) Sharon albicans (PCR) Not detected (Not Detect) Sharon auris (PCR) Not detected (Not Detect) C. glabrata (PCR) Not detected (Not Detect) C. krusei (PCR) Not detected (Not Detect) C. parapsilosis (PCR) Not detected (Not Detect) C. tropicalis (PCR) Not detected (Not Detect) C. neoform/gattii (PCR) Not detected (Not Detect) Enterobacterales (PCR) Not detected (Not Detect) E. cloacae complex PCR Not detected (Not Detect) Enterococc faecalis PCR Not detected (Not Detect) Enterococc faecium PCR Not detected (Not Detect) E. coli (PCR) Not detected (Not Detect) H. influenzae (PCR) Not detected (Not Detect) Klebsiella aerogenes (PCR) Not detected (Not Detect) Klebsiella oxytoca PCR Not detected (Not Detect) Klebsiella pneumoniae Not detected (Not Detect) List. monocytogenes PCR Not detected (Not Detect) N. meningitidis (PCR) Not detected (Not Detect) Proteus species (PCR) Not detected (Not Detect) Salmonella spp. (PCR) Not detected (Not Detect) Serratia marcescens PCR Not detected (Not Detect) Staphylococcus sp PCR Not detected (Not Detect) Staph aureus (PCR) Not detected (Not Detect) mecA/C & MREJ Resist Gene Not applicable (Not Detect) mecA/C-Methicil Resis Gene Not applicable (Not Detect) mcr-1 Colistin Res Gene PCR Not applicable (Not Detect) Staph epidermidis (PCR) Not detected (Not Detect) Staph lugdunensis PCR Not detected (Not Detect) S. maltophilia (PCR) Not detected (Not Detect) Streptococcus sp PCR Not detected (Not Detect) Group A Strep (PCR) Not detected (Not Detect) Strep agalactiae (PCR) Not detected (Not Detect) Strep pneumoniae (PCR) Not detected (Not Detect) P. aeruginosa (PCR) Not detected (Not Detect) Jt/B-Vanco Res Genes Not applicable (Not Detect) blaIMP Car res Gene PCR Not applicable (Not Detect) KPC-Carbap Res Gene PCR Not applicable (Not Detect) blaNDM Car Res Gene PCR Not applicable (Not Detect) OXA-48 Carbapenem Resis Gene (PCR) Not applicable (Not Detect) blaVIM Car Res Gene PCR Not applicable (Not Detect) CTX-M Gene Resistance (PCR) Not applicable (Not Detect) Imaging Data Chest x-ray: Radiologist's Impression: [address] [address] XRay Report Signed Patient: Madhav Coats V MR#: [id number] : 1950 Acct:[id number] Age/Sex: 74 / F Date of Service: 10/31/24 Loc: ED Accession Number: [id number] Procedure: XR chest 1V Ordering Provider: Diogo Schwartz MD PROCEDURE: XR CHEST 1V INDICATIONS: altered mental status TECHNIQUE: One view of the chest was acquired. COMPARISON: [facility], CT, CT ANGIO CHEST PE PROTOCOL, 09/28/2024, 14:51. [facility], CR, XR CHEST 1V, 09/28/2024, 14:30. [facility], CR, XR CHEST 1V, 10/30/2024, 9:30. FINDINGS: Surgical changes and devices: None. Lungs and pleura: An incomplete inspiratory result is noted, causing a crowded appearance to the lung markings. No focal infiltrates are seen. No pneumothorax or significant pleural effusions are seen. Mediastinum: The cardiac contours are within normal limits. The aorta demonstrates calcification and tortuosity. Bones and chest wall: No suspicious bony lesions. Age-appropriate bony degenerative changes are seen. Overlying soft tissues appear unremarkable. IMPRESSION: Low lung volumes, without an acute abnormality seen by plain film. Dictated by: Stephane Meza M.D. on 10/31/2024 at 14:46 Approved by: Stephane Meza M.D. on 10/31/2024 at 14:46 ECG Data Attestation: I personally reviewed and interpreted this ECG as follows: Interpretation: 1825, normal sinus rhythm with a rate of 77, no obvious ST segment elevation or depression changes. NH 146, QRS 84, QTC 459. MDM Narrative Medical decision making narrative: 74-year-old female with generalized weakness, evaluation yesterday included IV fluids, CT head and labs and EKG and chest x-ray, felt to be consistent with dehydration. Still feels weak all over. Returns for further evaluation. EKG, chest x-ray, labs pending. Seems to feel better on oxygen, not usually on oxygen. EKG appears to show junctional rhythm, no distinct P waves, regular, narrow complex, rate 60s. No obvious ST segment changes. Chest x-ray shows no acute changes. See radiology report. Lab data: White blood cell count 36351, hemoglobin 13.2, platelets adequate. Glucose 120. Renal function normal, normal serum CO2 and electrolytes. Liver functions and lipase normal. Initial lactate 2.8 elevated, IV fluids given, repeat lactate 1.2 improved. Ammonia negative. Troponin negative/unmeasurable. Urinalysis pending. Lactate further improved 0.7. Patient feels too weak to go back to retirement. Requests admission. We will contact PCP Jewell or cross cover physician. 2315, case discussed with cross cover physician Dr. Love who does not feel patient meets admission criteria. Lactate improved with hydration, consider dehydration. Encouraged hydration back of the retirement. Continue chronic medications retirement. Advises discharge back to the retirement to [facility]. Discharge Plan Departure Patient Disposition: Home Clinical Impression: Generalized weakness, Dehydration Activity Restrictions/Additional Instructions: Generalized weakness. Similar complaint yesterday with negative workup, given IV fluids. Today initial elevated lactate, no obvious sources of infection by chest x-ray and urinalysis and lab studies. Repeat lactate improved and further normalized with IV fluids. Consistent with dehydration. Labs were not consistent with any electrolyte disorder. EKG and blood testing not suggestive of heart attack at this time. Case was presented to cross cover physician Dr. Love, who was covering for your regular provider Dr. Corcoran, who felt that you did not meet admission criteria at this time. He suggested return back to [facility]. And 2 encouraged hydration while at the retirement. Follow up with your regular provider as scheduled. Return earlier to this/nearest emergency department for any change worsening symptoms or any concerns prior. Prescriptions: No Action Januvia 100 mg tablet 100 mg PO DAILY Sleep Aid (doxylamine) 25 mg tablet 25 mg PO BEDTIME clonidine HCl 0.2 mg tablet 0.2 mg PO BEDTIME olanzapine 10 mg tablet 10 mg PO ONCE PM gabapentin 300 mg capsule See Rx Instructions .ROUTE .COMPLEX Qty: 120 3RF Rx Instructions: 300 mg po qam and 900 mg po qpm; (DME) glucose monitor See Rx Instructions .Route .MEDSUPPLY Qty: 1 0RF Rx Instructions: As directed to check glucose twice daily (DME) glucose test strips See Rx Instructions .Route .MEDSUPPLY Qty: 100 3RF Rx Instructions: As directed to test glucose twice daily (DME) lancets See Rx Instructions .Route .MEDSUPPLY Qty: 100 3RF Rx Instructions: As directed to test glucose twice daily Lactobacillus acidophilus 10 billion cell capsule 10,000 mmu cells PO DAILY Qty: 14 0RF triamcinolone acetonide 0.1 % cream 1 applic topical BID Qty: 15 0RF (DME) DISABLED [employer] See Rx Instructions .Route .MEDSUPPLY Qty: 1 0RF Rx Instructions: 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 levothyroxine 137 mcg tablet 137 mcg PO DAILY metformin 500 mg tablet 500 mg PO BID acetaminophen 325 mg tablet 650 mg PO Q6H Patient Comments: has not taken for months nystatin 100,000 unit/gram ointment 1 applic topical DAILY magnesium oxide 250 mg magnesium tablet 250 mg PO DAILY ropinirole 0.25 mg tablet 0.5 mg PO DAILY Qty: 180 2RF olanzapine-samidorphan 10-10 mg tablet 1 tab PO DAILY Qty: 30 3RF clonidine HCl 0.1 mg tablet 0.2 mg PO BEDTIME Qty: 60 3RF biotin 1 mg capsule 1 mg PO DAILY nystatin 100,000 unit/gram cream 1 applic topical DAILY polyethylene glycol 3350 [Miralax] 17 gram/dose powder 17 g PO BID empagliflozin 10 mg tablet 10 mg PO DAILY (DME) Depends Incontinence supplies XL See Rx Instructions .Route .MEDSUPPLY Qty: 100 3RF Rx Instructions: for three times daily changes (DME) Prevail Plus pads 6 See Rx Instructions .Route .MEDSUPPLY Qty: 90 3RF Rx Instructions: As directed oxybutynin chloride 5 mg tablet 5 mg PO BID Qty: 60 2RF allopurinol 300 mg tablet See Rx Instructions .ROUTE .COMPLEX Qty: 90 2RF Dose Instruction: TAKE 1 TABLET BY MOUTH DAILY FOR GOUT Rx Instructions: TAKE 1 TABLET BY MOUTH DAILY FOR GOUT atorvastatin 40 mg tablet 40 mg PO BEDTIME Qty: 90 0RF bisacodyl 10 mg suppository 10 mg NH DAILY PRN (Reason: constipation) Qty: 30 0RF simethicone 80 mg tablet,chewable See Rx Instructions PO 6XD Qty: 30 0RF Rx Instructions: 160mg orally x 6hours prn for GAS pain; divalproex [Depakote ER] 500 mg tablet extended release 24 hr See Rx Instructions PO BEDTIME Qty: 60 2RF Rx Instructions: take 2 x500mg along with 250mg tablet [place] 1250mg. divalproex 250 mg tablet extended release 24 hr 250 mg PO DAILY Qty: 30 2RF Rx Instructions: Take 250mg in addition to 2 x 500mg tablets for total dose 1250mg. magnesium 250 mg tablet 250 mg PO DAILY Qty: 10 0RF benzonatate 100 mg Capsule 100 mg PO TID PRN (Reason: Cough) Qty: 30 0RF azithromycin 250 mg tablet 250 mg PO DAILY Qty: 3 0RF cefdinir 300 mg capsule 300 mg PO BID Qty: 6 0RF Referrals: Alina Corcoran MD [Primary Care Provider, Family Practice] Stand Alone Forms: Patient Portal/API
[2024-10-31 21:33] LABS: Thyroid Stimulating Hormone 0.428 uIU/mL (0.47-4.68)
[2024-10-31 21:36] LABS: Appearance Urine UA CLEAR; Bilirubin Urine UA NEGATIVE (NEGATIVE); Color Urine UA YELLOW; Glucose Urine UA 3+ g/dL (Negative); Ketones Urine UA TRACE (NEGATIVE); Leukocyte Esterase Urine UA NEGATIVE (NEGATIVE); Nitrite Urine UA NEGATIVE (Negative); Occult Blood Urine UA NEGATIVE (Negative); Protein Urine UA TRACE (Negative); Specific Gravity Urine UA 1.015 (1.000-1.035); Urobilinogen Urine UA 0.2 E.U./dL (0.2)
[2024-10-31 21:37] LABS: pH Urine UA 6.0 (4.5-8.0)
[2024-10-31 21:42] LABS: Ur Creatinine Normal (Normal); Ur Specific Gravity Normal (Normal); Urine MDMA Negative (Negative); Urine Methamphetamines Negative (Negative); Urine THC Negative (Negative); Urine Tricyclic Antidepressant Negative (Negative); Urine pH Normal (Normal)
[2024-10-31 21:47] LABS: Culture Indicated Urine Cult Not Indicated
[2024-10-31 21:57] LABS: Troponin I < 0.012 ng/mL (0.01-0.034)
[2024-10-31 22:23] LABS: Lactate (Lactic Acid) 0.7 mmol/L (0.7-2.1)
[2024-11-01 00:40] LABS: Acinetobacter calcoa-baumannii Not Detected (Not Detect); Bacteroides fragilis Not Detected (Not Detect); Candida auris Not Detected (Not Detect); Candida glabrata Not Detected (Not Detect); Cryptococcus neoformans/gatti Not Detected (Not Detect); Enterobacterales Not Detected (Not Detect); Enterococcus faecalis Not Detected (Not Detect); Enterococcus faecium Not Detected (Not Detect); Klebsiella aerogenes Not Detected (Not Detect); Proteus species Not Detected (Not Detect); Serratia marcescens Not Detected (Not Detect); Staphylococcus epidermidis Not Detected (Not Detect); Staphylococcus lugdunensis Not Detected (Not Detect); Staphylococcus species Not Detected (Not Detect); Stenotrophomonas maltophilia Not Detected (Not Detect); Streptococcus agalactiae (Gr B Not Detected (Not Detect); Streptococcus pneumonia Not Detected (Not Detect); Streptococcus pyogenes (Gr A) Not Detected (Not Detect); Streptococcus species Not Detected (Not Detect)
[2024-11-01 01:41] VITALS: BP 152/76; PULSE 80; RESP 16; TEMP 37.4; O2SAT 94
--- NOTE | 2024-11-01 01:42 | PC.NURSE ---
Incontinence care done. Pt transferred to chair with stand by assist to wait for her ride back to [facility]. Tolerated well.
[2024-11-02 08:36] LABS: Valproic Acid (Depakene) Total < 4 ug/mL (50-100)
== END 2024-11-01 01:58 | disposition home or self-care (01) ==
PROVIDERS: Emergency Medicine; Emergency Provider Emergency Medicine; PCP Family Medicine
DX: R53.1 Weakness (principal); E86.0 Dehydration; I10 Essential (primary) hypertension; Z87.01 Personal history of pneumonia (recurrent)
CPT/HCPCS: 36415; 71045; 80053; 80164; 80305; 80320; 81001; 82140; 82550; 83605; 84145; 84443; 84484; 85025; 87040; 87154; 93005; 96360; 96361; 99284

== ENCOUNTER 2024-11-06 13:55 | Emergency (ER) | payer MEDICARE, MEDICAID, SELFPAY ==
[2024-09-28 17:56] VITALS: BMI 38.2
[2024-11-06] VITALS (16 sets, daily range): BP systolic 154–192; BP diastolic 72–90; PULSE 95–116; RESP 11–23; TEMP 36.7–37.2; O2SAT 91–96; BMI 38.7
--- NOTE | 2024-11-06 14:28 | DI.RAD.S_ITS ---
PROCEDURE: XR CHEST 1V INDICATIONS: suspected sepsis TECHNIQUE: One view of the chest was acquired. COMPARISON: Merged With [facility], CR, XR CHEST 1V, 10/31/2024, 15:10. Merged With [facility], CR, XR CHEST 1V, 10/30/2024, 9:30. FINDINGS: Surgical changes and devices: None. Lungs and pleura: Lungs are clear. No pleural effusions or pneumothorax. Mildly elevated right hemidiaphragm with bibasilar atelectasis. Peribronchial cuffing. Mediastinum: Mediastinal contours appear normal. Heart size is normal. Bones and chest wall: No suspicious bony lesions. Overlying soft tissues appear unremarkable. IMPRESSION: Peribronchial cuffing, typically indicating infectious or inflammatory bronchitis. Dictated by: Satish Lopez M.D. on 11/06/2024 at 15:02 Approved by: Satish Lopez M.D. on 11/06/2024 at 15:02
--- NOTE | 2024-11-06 15:23 | EKG_ITS ---
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
[2024-11-06] MEDS: SODIUM CHLORIDE 0.9% 1,000 ML 1000 ML IV (15:30)
[2024-11-06 15:51] LABS: Add Manual Diff / Slide Review NO; Hematocrit 42.3 % (36-46); Hemoglobin 14.2 g/dL (12.0-16.0); Lymphocytes Absolute Auto 2400 /uL (1100-4500); Mean Corpuscular HGB Conc 33.5 % (30-36); Mean Corpuscular Hemoglobin 33.6 PG (26-34); Mean Corpuscular Volume 100.2 fL (80-100); Platelet Count 194 X10^3/uL (150-400)
[2024-11-06 15:59] LABS: INR 0.9 (0.9-1.3); Prothrombin Time 10.7 SECONDS (9.4-12.5)
[2024-11-06 16:01] LABS: PTT Partial Thromboplastin Tim 30 SECONDS (25.1-36.5)
[2024-11-06 16:07] LABS: Lactate (Lactic Acid) 2.9 mmol/L (0.7-2.1)
[2024-11-06 16:09] LABS: Alanine Aminotransferase 27 IU/L (<35); Albumin 4.5 g/dL (3.5-5.0); Albumin Globulin Ratio 1.4 (1.0-2.8); Alkaline Phosphatase 69 U/L (38-126); Blood Urea Nitrogen 14 mg/dL (7-17); Calcium 10.2 mg/dL (8.4-10.2); Carbon Dioxide 24 mmol/L (22-32); Chloride 103 mmol/L (98-107); Estimated Glomerular Filt Rate > 60 mL/min (>60); Globulin 3.3 g/dL (1.7-4.1); Glucose 153 mg/dL (70-99); HEMOLYSIS 32 (0-50); Lipase 69 U/L (23-300); Potassium 4.4 mmol/L (3.4-5.1); Sodium 140 mmol/L (137-145); Total Protein 7.8 g/dL (6.3-8.2)
[2024-11-06 16:25] LABS: Procalcitonin 0.071 ng/mL (<0.5)
--- NOTE | 2024-11-06 16:37 | DI.CT.S_ITS ---
PROCEDURE: CT CHEST ABD PEL W CON INDICATIONS: Sepsis TECHNIQUE: After the administration of intravenous contrast, 5 mm thick sections acquired from the lung apices to the symphysis. 5 mm coronal and sagittal reformats were performed, with additional 7 mm MIP reformats through the lungs. For radiation dose reduction, the following was used: automated exposure control, adjustment of mA and/or kV according to patient size. COMPARISON: [facility], CT, CT KIDNEY URETER BLADDER (KUB), 08/27/2021, 21:03. [facility], CT, CT CHEST ABD PEL WO CON, 07/29/2023, 10:20. [facility], CR, XR CHEST 1V, 11/06/2024, 14:43. [facility], CT, CT ANGIO CHEST PE PROTOCOL, 09/28/2024, 14:51. [facility], CT, CT ANGIO CHEST PE PROTOCOL, 02/03/2024, 7:33. [facility], CT, CT CHEST ABD PEL W CON, 01/22/2022, 18:46. FINDINGS: Image quality: There is artifact associated with the metallic hardware. Artifact from the metallic hardware is reduced by metal reconstruction algorithm. CHEST: Lower Neck: No enlarged lymph nodes. Thyroid: The thyroid is small in size and not well seen. Axillae: No enlarged lymph nodes. Chest Wall: Unremarkable. Lungs and Pleura: Irregular consolidative change can be seen within the infrahilar right lower lung, which is similar to the prior examination. The previously seen consolidative change within the left lower lobe is improved, with residual atelectasis. No pneumothorax or pleural effusions are seen. Persistent elevation of the right hemidiaphragm is seen, which is best demonstrated on coronal images. Heart: Heart size is normal. No pericardial effusion. Thoracic Vessels: The aorta and pulmonary arteries demonstrate normal size. Mediastinum and Isabel: No enlarged lymph nodes. Esophagus: No wall thickening. No hiatal hernia. ABDOMEN: Liver: No solid mass. An enlarged, fatty infiltrated liver can be seen. Gallbladder: No radiopaque gallstones or wall thickening. Biliary ducts: No biliary dilation. Pancreas: No ductal dilation. Spleen: Size is within normal limits. Incidental note is made of an accessory splenule along the inferior aspect of the primary spleen. Adrenal Glands: No adrenal nodules. Kidneys and Ureters: No hydronephrosis. No solid mass. No complex renal cystic lesion which requires follow up. Stomach and Bowel: Normal colonic caliber, without significant wall thickening. There is a moderate volume of stool seen within the colon. No dilated loops of small bowel are seen. No appendix (either normal or abnormal) is identified on this study. Peritoneum: No abnormal intraperitoneal fluid. No free air. Ventral Wall: No significant ventral hernia. Abdominal Nodes: No retroperitoneal or mesenteric adenopathy by size criteria. Vessels: Aorta and inferior vena cava are normal in size. PELVIS: Pelvic Organs: No adnexal masses are seen on either side. Bladder: No bladder wall thickening, accounting for underdistention. Pelvic Nodes: No enlarged lymph nodes. Miscellaneous: No inguinal hernias are seen. Bones: No aggressive osseous abnormality. Age-appropriate bony degenerative changes are seen. IMPRESSION: No source of sepsis is identified. There is stable consolidative change within the right inferior lung, likely related to persistent atelectasis. There is persistent elevation of the right hemidiaphragm. The left lower lung demonstrates an improved appearance, with likely residual atelectasis present. There is a moderate amount of stool seen within the colon. Please correlate with an underlying history of constipation. Additional findings: Enlarged, fatty infiltrated liver Accessory splenule Dictated by: Stephane Meza M.D. on 11/06/2024 at 16:17 Approved by: Stephane Meza M.D. on 11/06/2024 at 16:23
--- NOTE | 2024-11-06 16:39 | ED.WEAKNESS ---
HPI - Weakness General Chief complaint: Weakness Stated complaint: high bp/heart rate, unsteady and fatigued Time Seen by Provider: 11/06/24 13:57 Source: patient Mode of arrival: Wheelchair History of Present Illness HPI Narrative: Patient brought here by daughter from [facility]. Worsening somnolence weakness decreased oral intake. Patient recently seen here October 31, 2024 for dehydration. See notes below. She was diagnosed with pneumonia in September and since then has decline in her health. Worsening weakness. Has had decreased urine output. Patient is very somnolent and has to be awakened during conversation. Denies any fall or injury or pain. Chief complaint: Weakness Stated complaint: here yesterday, not feeling better from [facility] Time Seen by Provider: 10/31/24 18:04 History of Present Illness HPI narrative: (most history obtained from daughter at bedside) 74-year-old female resident of [facility] with history of bipolar disorder, hypertension, hyperthyroidism, anxiety, diabetes, had pneumonia one month ago, course of antibiotics, subsequent diarrhea that resolved, with recent generalized weakness. Seen here yesterday with evaluation for generalized weakness including head CT scan and labs and chest x-ray and COVID swab per daughter at bedside, was given 2 L of IV fluids, suspected dehydration, discharged back to [facility] yesterday. Has ongoing generalized weakness. Denies sensation of shortness of breath but does feel better on oxygen that was placed. Denies pain to chest, upper mid lower back, head, neck, upper extremities, lower extremities. Denies lower extremity pain or swelling. Related Data Home Medications ?Medication ?Instructions ?Recorded ?Confirmed levothyroxine 137 mcg tablet 137 mcg PO DAILY 12/03/23 10/24/24 metformin 500 mg tablet 500 mg PO BID 12/03/23 10/24/24 doxylamine succinate 25 mg tablet 25 mg PO BEDTIME 01/01/24 10/24/24 (Sleep Aid (doxylamine)) sitagliptin phosphate 100 mg 100 mg PO DAILY 01/01/24 10/24/24 tablet (Januvia) biotin 1 mg capsule 1 mg PO DAILY 03/03/24 10/24/24 empagliflozin 10 mg tablet 10 mg PO DAILY 03/03/24 10/24/24 nystatin 100,000 unit/gram topical 1 applic topical DAILY 03/03/24 10/24/24 cream polyethylene glycol 3350 17 17 g PO BID 03/03/24 10/24/24 gram/dose oral powder (Miralax) acetaminophen 325 mg tablet 650 mg PO Q6H pain 04/21/24 10/24/24 magnesium oxide 250 mg PO DAILY 04/21/24 10/24/24 nystatin 100,000 unit/gram topical 1 applic topical DAILY 04/21/24 10/24/24 ointment clonidine HCl 0.2 mg tablet 0.2 mg PO BEDTIME 07/21/24 10/24/24 olanzapine 10 mg tablet 10 mg PO ONCE PM 07/21/24 10/24/24 Previous Rx's ?Medication ?Instructions ?Recorded DISABLED PARKING PLACARD #1 ea 11/24/22 Depends Incontinence supplies #100 ea 03/15/23 Prevail Plus pads #90 ea 03/15/23 oxybutynin chloride 5 mg tablet 5 mg PO BID #60 tabs 06/15/23 clonidine HCl 0.1 mg tablet 0.2 mg (2 x 0.1 mg) PO BEDTIME #60 07/09/23 tabs magnesium 250 mg tablet 250 mg PO DAILY #10 tabs 07/24/23 allopurinol 300 mg tablet See Rx Instructions .Route 08/01/23 .COMPLEX #90 tabs atorvastatin 40 mg tablet 40 mg PO BEDTIME #90 tabs 12/17/23 bisacodyl 10 mg rectal suppository 10 mg LA DAILY PRN constipation 12/17/23 #30 ea simethicone 80 mg chewable tablet See Rx Instructions PO 6XD #30 tabs 12/17/23 ropinirole 0.25 mg tablet 0.5 mg (2 x 0.25 mg) PO DAILY #180 04/21/24 tabs olanzapine 10 mg-samidorphan 10 mg 1 tab PO DAILY #30 tabs 06/24/24 tablet azithromycin 250 mg tablet 250 mg PO DAILY #3 tabs 10/01/24 benzonatate 100 mg capsule 100 mg PO TID PRN Cough #30 caps 10/01/24 cefdinir 300 mg capsule 300 mg PO BID #6 caps 10/01/24 triamcinolone acetonide 0.1 % 1 applic topical BID #15 grams 10/13/24 topical cream Lactobacillus acidophilus 10 10,000 mmu cells PO DAILY #14 caps 10/24/24 billion cell capsule glucose monitor #1 ea 10/24/24 glucose test strips #100 ea 10/24/24 lancets #100 ea 10/24/24 gabapentin 300 mg capsule See Rx Instructions .Route 11/03/24 .COMPLEX #120 caps divalproex 250 mg tablet,extended 250 mg PO DAILY #30 tabs 11/06/24 release 24 hr divalproex 500 mg tablet,extended See Rx Instructions PO BEDTIME #60 11/06/24 release 24 hr (Depakote ER) tabs Allergies Allergy/AdvReac Type Severity Reaction Status Date / Time Sulfa (Sulfonamide Allergy Mild RASH Verified 11/06/24 14:22 Antibiotics) haloperidol (HALOPERIDOL) Allergy Unknown Verified 11/06/24 14:22 lithium (LITHIUM) Allergy Unknown Verified 11/06/24 14:22 risperidone (RISPERIDONE) Allergy Unknown Verified 11/06/24 14:22 lidocaine AdvReac Intermediate gait Verified 11/06/24 14:22 instability perphenazine AdvReac uncontrolled Verified 11/06/24 14:22 hand shaking Review of Systems Review of Systems Narrative: GENERAL: Negative chills, positive fatigue, malaise, negative fever, sweats. HEENT: Negative sinus pain, ear pain, sore throat RESPIRATORY: Negative dyspnea, cough CARDIOVASCULAR: Negative chest pain, palpitations GASTROINTESTINAL: Negative vomiting, nausea, abdominal pain : Negative dysuria, frequency, hematuria MUSCULOSKELETAL: Negative muscle or bony pain SKIN: Negative rash, skin lesions NEUROLOGIC: Negative weakness, numbness ROS Unobtainable: All systems reviewed & are unremarkable except as noted in HPI and below Patient History Medical History Bipolar 1 disorder, depressed, partial remission Psychosis COVID-19 Bipolar 1 disorder, mixed, full remission Hyperlipidemia DM type 2 (diabetes mellitus, type 2) Bipolar I disorder, most recent episode depressed, severe without psychotic features Bipolar disorder (1989) Fractures (2007) Foot pain (~2002) Ankle pain (2007) Peripheral neuropathy (2013) Hayfever (~1989) Sleep apnea (08/2015) Hypertension Hypothyroidism Urinary incontinence Cataract (2011) Chicken pox Measles CTS (carpal tunnel syndrome) (1987) RLS (restless legs syndrome) (1999) Anxiety (1994) Depression (1961) Surgical History Anesthesia complication History of surgery (04/2008) History of carpal tunnel repair (~1997) Family History Child Age: 52 Arthritis Mother Heart disease Family history of fraternal twins Family history of identical twins Levin gestation with first Social History marital status: number of children: 2 household members: none lives independently: Yes caregiver/support person: No housing: house pets and animals: No education level: high school occupational status: unemployed leisure activities: reading and volunteer work other: walk,garden,visit friends,voodoo,word puzzles seatbelt use: always water heater temp set < 120 deg: Yes working smoke detector in home: Yes fire extinguisher in home: Yes carbon monox detector in home: Yes Smoking Status: Never smoker second hand exposure: No alcohol intake: current substance use type: does not use during the past year weight has: other well-balanced diet: rarely or never daily servings fruits/ve-1 caffeine: Yes eating out: 1-3 times/week frequency: 3-4 times per week duration: 15-30 minutes/day Smoking Status: Never smoker alcohol intake frequency: holidays/special occasions only Exam Narrative Exam Narrative: GENERAL: in no distress, not toxic not dyspneic HEAD: Normocephalic. EYES: Pupils equal round ENT: Mucous membranes moist. NECK: Trachea midline. CARDIOVASCULAR: Regular rate and rhythm RESPIRATORY: Clear to auscultation. Breath sounds equal bilaterally. No wheezes, rales, or rhonchi. GASTROINTESTINAL: Abdomen soft, non-tender EXTREMITIES: No gross deformities. BACK: No flank tenderness. NEURO: AOx4. 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 Lift each leg slowly off the bed. SKIN: Warm and dry PSYCH: Not anxious, is cooperative Initial Vital Signs Initial Vital Signs: Vital Signs Temperature 99 F 11/06/24 14:22 Pulse Rate 116 H 11/06/24 14:22 Respiratory Rate 20 11/06/24 14:22 Blood Pressure 154/72 H 11/06/24 14:22 Oxygen Delivery Method Room Air 11/06/24 14:22 Course Orders Ordered: ED Orders 11/06/24 14:28 XR chest 1V Stat EKG-12 Lead Stat RT Consult Eval and Treat NOW 11/06/24 15:41 Complete Blood Count AUTO DIFF Stat Comprehensive Metabolic Panel Stat Lactate (Lactic Acid) Stat Lipase Stat PTT Partial Thromboplastin William Stat Procalcitonin Stat Prothrombin Time INR Stat 11/06/24 16:07 Blood Culture Stat 11/06/24 16:37 CT chest abd pel w con Stat 11/06/24 17:07 Urinalysis and Microscopic Stat Discontinued Medications Clonidine HCl (Clonidine 0.1 Mg Tablet) 0.1 mg PO NOW ONE Stop: 11/06/24 18:55 Last Admin: 11/06/24 19:06 Dose: 0.1 mg Sodium Chloride (Normal Saline 0.9%) 1,000 mls @ 1,000 mls/hr IV BOLUS ONE Stop: 11/06/24 15:26 Last Infusion: 11/06/24 17:28 Dose: Infused Documented By: Admin: 11/06/24 15:30 Dose: 1,000 mls/hr Documented By: BRIANNA Ceftriaxone Sodium 2,000 mg/ (Sodium Chloride) 100 mls @ 200 mls/hr IV NOW ONE Stop: 11/06/24 16:45 Last Infusion: 11/06/24 17:52 Dose: Infused Documented By: Admin: 11/06/24 17:13 Dose: 200 mls/hr Documented By: BRIANNA Ondansetron HCl (Ondansetron 4 Mg/2 Ml Inj) 4 mg IV NOW PRN PRN Reason: Nausea And Vomiting Ondansetron HCl (Ondansetron 4 Mg Odt) 4 mg PO NOW PRN PRN Reason: Nausea And Vomiting Vital Signs Vital signs: Vital Signs - 8 hr 11/06/24 14:22 11/06/24 15:07 11/06/24 15:07 Temperature 99 F Pulse Rate 116 H 105 H Respiratory Rate 20 Blood Pressure 154/72 H 162/77 H Pulse Oximetry 92 Oxygen Delivery Method Room Air 11/06/24 15:30 11/06/24 16:00 11/06/24 16:30 Temperature Pulse Rate 103 H 99 H 96 H Respiratory Rate 11 L 13 Blood Pressure Pulse Oximetry 93 96 95 Oxygen Delivery Method 11/06/24 16:30 11/06/24 16:31 11/06/24 16:31 Temperature Pulse Rate 95 H Respiratory Rate 11 L Blood Pressure 174/87 H 174/90 H Pulse Oximetry 95 Oxygen Delivery Method 11/06/24 16:57 11/06/24 16:57 11/06/24 17:00 Temperature Pulse Rate 98 H 97 H Respiratory Rate 23 23 Blood Pressure 192/90 H Pulse Oximetry 92 96 Oxygen Delivery Method 11/06/24 17:00 11/06/24 17:30 11/06/24 17:31 Temperature Pulse Rate 99 H 97 H Respiratory Rate 22 21 Blood Pressure 184/89 H Pulse Oximetry 92 Oxygen Delivery Method Room Air 11/06/24 17:31 11/06/24 18:00 11/06/24 18:00 Temperature Pulse Rate 98 H Respiratory Rate Blood Pressure 168/75 H 173/77 H Pulse Oximetry 92 Oxygen Delivery Method Room Air 11/06/24 18:30 11/06/24 18:31 11/06/24 18:31 Temperature Pulse Rate 97 H 97 H Respiratory Rate Blood Pressure 177/78 H Pulse Oximetry 92 93 Oxygen Delivery Method 11/06/24 19:00 11/06/24 19:06 11/06/24 19:21 Temperature 98.0 F Pulse Rate 97 H 95 H Respiratory Rate 23 Blood Pressure 176/80 H Pulse Oximetry 91 Oxygen Delivery Method Room Air MDM - Weakness Lab Data 11/06/24 15:41 11/06/24 15:41 Labs: Lab Results 11/06/24 11/06/24 11/06/24 Range/Units 15:41 17:07 17:49 WBC 7.4 (4.5-11.0) X10^3/uL RBC 4.22 (4.0-5.2) X10^6/uL Hgb 14.2 (12.0-16.0) g/dL Hct 42.3 (36-46) % MCV 100.2 H (80-100) fL MCH 33.6 (26-34) PG MCHC 33.5 (30-36) % RDW 16.3 H (11.6-14.8) % Plt Count 194 (150-400) X10^3/uL Neut % (Auto) 54.5 (50-75) % Lymph % (Auto) 32.2 (25-40) % [place] % (Auto) 9.2 (3-14) % Eos % (Auto) 2.9 (2-4) % Baso % (Auto) 1.2 (0-2) % Neut # (Auto) 4000 (0219-4176) /uL Lymph # (Auto) 2400 (9721-4938) /uL [place] # (Auto) 700 (0-900) /uL Eos # (Auto) 200 (0-450) /uL Baso # (Auto) 100 (0-100) /uL PT 10.7 (9.4-12.5) SECONDS INR 0.9 (0.9-1.3) APTT 30 (25.1-36.5) SECONDS Sodium 140 (137-145) mmol/L Potassium 4.4 (3.4-5.1) mmol/L Chloride 103 (98-107) mmol/L Carbon Dioxide 24 (22-32) mmol/L BUN 14 (7-17) mg/dL Creatinine 0.91 (0.52-1.04) mg/dL Estimated GFR > 60 (>60) mL/min BUN/Creatinine Ratio 15.4 (6-22) Glucose 153 H (70-99) mg/dL Lactate 2.9 H 1.9 (0.7-2.1) mmol/L Calcium 10.2 (8.4-10.2) mg/dL Total Bilirubin 0.6 (0.2-1.3) mg/dL AST 37 H (14-36) IU/L ALT 27 (<35) IU/L Alkaline Phosphatase 69 (38-126) U/L Total Protein 7.8 (6.3-8.2) g/dL Albumin 4.5 (3.5-5.0) g/dL Globulin 3.3 (1.7-4.1) g/dL Albumin/Globulin Ratio 1.4 (1.0-2.8) Lipase 69 (23-300) U/L Procalcitonin 0.071 (<0.5) ng/mL Urine Color Yellow Urine Appearance Clear Urine pH 6.0 (4.5-8.0) Ur Specific [place] 1.010 (1.000-1.035) Urine Protein 1+ H (Negative) Urine Glucose (UA) 3+ H (Negative) g/dL Urine Ketones Negative (NEGATIVE) Urine Occult Blood Negative (Negative) Urine Nitrate Negative (Negative) Urine Bilirubin Negative (NEGATIVE) Urine Urobilinogen 0.2 (0.2) E.U./dL Ur Leukocyte Esterase Negative (NEGATIVE) Urine RBC None seen (0-5/HPF) Urine WBC 0-1/hpf (0-5/HPF) Ur Squamous Epith Cells None seen (0-5/HPF) Urine Bacteria None seen (None) Vol Urine Centrifuged 10ml (spun) Imaging Data Chest x-ray: Radiologist Impression: [address] [id number] XRay Report Signed Patient: Madhav Coats V MR#: [id number] : 1950 Acct:[id number] Age/Sex: 74 / F Date of Service: 11/06/24 Loc: ED Accession Number: [id number] Procedure: XR chest 1V Ordering Provider: Caden Haddad MD PROCEDURE: XR CHEST 1V INDICATIONS: suspected sepsis TECHNIQUE: One view of the chest was acquired. COMPARISON: [facility], CR, XR CHEST 1V, 10/31/2024, 15:10. [facility], CR, XR CHEST 1V, 10/30/2024, 9:30. FINDINGS: Surgical changes and devices: None. Lungs and pleura: Lungs are clear. No pleural effusions or pneumothorax. Mildly elevated right hemidiaphragm with bibasilar atelectasis. Peribronchial cuffing. Mediastinum: Mediastinal contours appear normal. Heart size is normal. Bones and chest wall: No suspicious bony lesions. Overlying soft tissues appear unremarkable. IMPRESSION: Peribronchial cuffing, typically indicating infectious or inflammatory bronchitis. Dictated by: Satish Lopez M.D. on 11/06/2024 at 15:02 Approved by: Satish Lopez M.D. on 11/06/2024 at 15:02 [facility] Narrative Medical decision making narrative: Patient brought here by daughter from [facility]. Worsening somnolence weakness decreased oral intake. Patient recently seen here October 31, 2024 for dehydration. See notes below. She was diagnosed with pneumonia in September and since then has decline in her health. Worsening weakness. Has had decreased urine output. Patient is very somnolent and has to be awakened during conversation. Denies any fall or injury or pain. MDM After history and exam, CBC CMP procalcitonin lactic acid respiratory panel chest x-ray urinalysis normal saline EKG Differential considered: Includes but not limited to sepsis pneumonia UTI Medical records reviewed: October 31, 2024 ER visit here.. Patient did have CT head October 30, 2024 which was on remarkable. Lab Test results independently reviewed as above. Pertinent findings: WBC 7.4 hemoglobin 14.2 INR 0.9 sodium 140 potassium 4.4 bicarb 24 BUN 14 creatinine 0.91 GFR greater than 60 glucose 153 lactic acid 2.9 calcium 10.2 AST 37 ALT 27 procalcitonin 0.071 Independently reviewed EKG sinus tachycardia rate [address] elevation or depression Imaging studies independently reviewed: Chest x-ray peribronchial cuffing, CT chest abdomen pelvis no acute finding Consultations: 6:54 p.m.. I spoke with primary care on-call, Dr. Love, he has reviewed patient's chart and previous visits and Dr. Eason, psychiatrist for patient notes, he feels this patient also is enduring polypharmacy effects and needs some of her medications adjusted. He has had her admitted in the past before as well. He agrees patient can be discharged home and he will call Dr. Eason in the morning for medication changes who will also contact family for these changes. Re-evaluations: 6:45 p.m.. I spoke with patient and daughter. At this time laboratory studies and images are reassuring as well as her previous visits this past week for the same complaint. I feel that this is likely polypharmacy effect. She has been on these medications for a long time and psychiatry has been involved with medications that can cause somnolence. They Do desire discharge home. Patient is awake. She answers questions appropriately now. She states she has been able to drink and take her medications. Discussion: Appropriate for discharge home. Exam is reassuring. Return precautions reviewed with patient and family. Primary provider on-call for dr corcoran was contacted. Medication changes will start tomorrow. Patient and daughter desire discharge home. Diagnosis: Fatigue Discharge Plan Departure Patient Disposition: Home Clinical Impression: Generalized weakness Instructions: DI for Fatigue Activity Restrictions/Additional Instructions: Your exam and laboratory studies are reassuring. Your primary care provider office has been contacted today and medication changes will be starting tomorrow which should help out for your fatigue and tiredness. Keep well hydrated. Return if worse if any questions or concerns. Prescriptions: No Action Januvia 100 mg tablet 100 mg PO DAILY Sleep Aid (doxylamine) 25 mg tablet 25 mg PO BEDTIME clonidine HCl 0.2 mg tablet 0.2 mg PO BEDTIME olanzapine 10 mg tablet 10 mg PO ONCE PM (DME) glucose monitor See Rx Instructions .Route .MEDSUPPLY Qty: 1 0RF Rx Instructions: As directed to check glucose twice daily (DME) glucose test strips See Rx Instructions .Route .MEDSUPPLY Qty: 100 3RF Rx Instructions: As directed to test glucose twice daily (DME) lancets See Rx Instructions .Route .MEDSUPPLY Qty: 100 3RF Rx Instructions: As directed to test glucose twice daily Lactobacillus acidophilus 10 billion cell capsule 10,000 mmu cells PO DAILY Qty: 14 0RF triamcinolone acetonide 0.1 % cream 1 applic topical BID Qty: 15 0RF (DME) DISABLED PARKING PLACARD See Rx Instructions .Route .MEDSUPPLY Qty: 1 0RF Rx Instructions: 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 levothyroxine 137 mcg tablet 137 mcg PO DAILY metformin 500 mg tablet 500 mg PO BID acetaminophen 325 mg tablet 650 mg PO Q6H Patient Comments: has not taken for months nystatin 100,000 unit/gram ointment 1 applic topical DAILY magnesium oxide 250 mg magnesium tablet 250 mg PO DAILY ropinirole 0.25 mg tablet 0.5 mg PO DAILY Qty: 180 2RF olanzapine-samidorphan 10-10 mg tablet 1 tab PO DAILY Qty: 30 3RF clonidine HCl 0.1 mg tablet 0.2 mg PO BEDTIME Qty: 60 3RF biotin 1 mg capsule 1 mg PO DAILY nystatin 100,000 unit/gram cream 1 applic topical DAILY polyethylene glycol 3350 [Miralax] 17 gram/dose powder 17 g PO BID empagliflozin 10 mg tablet 10 mg PO DAILY (DME) Depends Incontinence supplies XL See Rx Instructions .Route .MEDSUPPLY Qty: 100 3RF Rx Instructions: for three times daily changes (DME) Prevail Plus pads 6 See Rx Instructions .Route .MEDSUPPLY Qty: 90 3RF Rx Instructions: As directed oxybutynin chloride 5 mg tablet 5 mg PO BID Qty: 60 2RF allopurinol 300 mg tablet See Rx Instructions .ROUTE .COMPLEX Qty: 90 2RF Dose Instruction: TAKE 1 TABLET BY MOUTH DAILY FOR GOUT Rx Instructions: TAKE 1 TABLET BY MOUTH DAILY FOR GOUT atorvastatin 40 mg tablet 40 mg PO BEDTIME Qty: 90 0RF bisacodyl 10 mg suppository 10 mg LA DAILY PRN (Reason: constipation) Qty: 30 0RF simethicone 80 mg tablet,chewable See Rx Instructions PO 6XD Qty: 30 0RF Rx Instructions: 160mg orally x 6hours prn for GAS pain; gabapentin 300 mg capsule See Rx Instructions .ROUTE .COMPLEX Qty: 120 3RF Rx Instructions: 300 mg po qam and 900 mg po qpm; divalproex 250 mg tablet extended release 24 hr 250 mg PO DAILY Qty: 30 1RF Rx Instructions: Take 250mg in addition to 2 x 500mg tablets for total dose 1250mg. divalproex [Depakote ER] 500 mg tablet extended release 24 hr See Rx Instructions PO BEDTIME Qty: 60 2RF Rx Instructions: take 2 x500mg along with 250mg tablet [place] total dose [place] 1250mg. magnesium 250 mg tablet 250 mg PO DAILY Qty: 10 0RF benzonatate 100 mg Capsule 100 mg PO TID PRN (Reason: Cough) Qty: 30 0RF azithromycin 250 mg tablet 250 mg PO DAILY Qty: 3 0RF cefdinir 300 mg capsule 300 mg PO BID Qty: 6 0RF Referrals: Alina Corcoran MD [Primary Care Provider, Family Practice] Stand Alone Forms: Patient Portal/API
[2024-11-06] MEDS: cefTRIAXone 2,000 MG in SODIUM CHLORIDE 0.9% 100 ML 200 MG IV (17:13)
[2024-11-06 17:24] LABS: Appearance Urine UA CLEAR; Bilirubin Urine UA NEGATIVE (NEGATIVE); Color Urine UA YELLOW; Glucose Urine UA 3+ g/dL (Negative); Ketones Urine UA NEGATIVE (NEGATIVE); Leukocyte Esterase Urine UA NEGATIVE (NEGATIVE); Nitrite Urine UA NEGATIVE (Negative); Occult Blood Urine UA NEGATIVE (Negative); Protein Urine UA 1+ (Negative); Specific Gravity Urine UA 1.010 (1.000-1.035); Urobilinogen Urine UA 0.2 E.U./dL (0.2)
[2024-11-06 17:24] LABS: Reflexed Lactate in 2 Hours Y
[2024-11-06 17:31] LABS: pH Urine UA 6.0 (4.5-8.0)
[2024-11-06 18:09] LABS: Lactate 2HR (Lactic Acid Rflx) 1.9 mmol/L (0.7-2.1)
== END 2024-11-06 19:20 | disposition home or self-care (01) ==
PROVIDERS: Emergency Provider Emergency Medicine; PCP Family Medicine
DX: R53.1 Weakness (principal); R53.83 Other fatigue
CPT/HCPCS: 36415; 71045; 71260; 74177; 80053; 81001; 83605; 83690; 84145; 85025; 85610; 85730; 87040; 93005; 96361; 96365; 99284; J0696; Q9967

== ENCOUNTER 2024-11-16 12:15 | Emergency (ER) | payer MEDICARE, MEDICAID, SELFPAY ==
[2024-11-10 11:34] VITALS: BMI 38.2
[2024-11-16] VITALS (15 sets, daily range): BP systolic 105–124; BP diastolic 52–68; PULSE 73–87; RESP 18–26; TEMP 36.7–37.1; O2SAT 92–99; BMI 38.7
--- NOTE | 2024-11-16 12:21 | DI.CT.S_ITS ---
PROCEDURE: CT CERVICAL SPINE WO CON INDICATIONS: fall TECHNIQUE: Noncontrast 3 mm thick sections acquired from the skull base to the T4 level. Sagittal and coronal reformats were then constructed. For radiation dose reduction, the following was used: automated exposure control, adjustment of mA and/or kV according to patient size. COMPARISON: [facility], CT, CT CERVICAL SPINE WO CON, 07/29/2023, 10:20. FINDINGS: Image quality: Excellent. Bones: No fractures or dislocations. Straightening of normal cervical lordosis. Loss of disc height and degenerative endplate changes are noted in mid to lower cervical spine more notably at C5-6 level. Visualized superior ribs are intact. Soft tissues: Prevertebral soft tissues are normal in thickness. No paravertebral hematomas. No apical pneumothoraces. IMPRESSION: 1. No displaced fracture or traumatic subluxation. 2. 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 Dictated by: Les Greenfield M.D. on 11/16/2024 at 12:44 Approved by: Les Greenfield M.D. on 11/16/2024 at 12:45
--- NOTE | 2024-11-16 12:21 | DI.CT.S_ITS ---
PROCEDURE: CT HEAD/BRAIN WO CON INDICATIONS: fall, frontal contusion, ? syncope TECHNIQUE: Noncontrast 4.5 mm thick angled axial sections acquired from the foramen magnum to the vertex, with coronal and sagittal reformats. For radiation dose reduction, the following was used: automated exposure control, adjustment of mA and/or kV according to patient size. COMPARISON: [facility], CT, CT HEAD/BRAIN WO CON, 10/30/2024, 12:27. FINDINGS: Image quality: Diagnostic. CSF spaces: Basal cisterns are patent. No extra-axial fluid collections. The ventricles are symmetric in size and shape. Brain: No intracranial bleeds or mass effect. There is cerebral volume loss, with resultant ventricular and sulcal prominence. There are periventricular and deep white matter chronic small vessel ischemic changes. There is intracranial internal carotid artery atherosclerosis. Skull and face: Mild right frontal scalp swelling is seen. Calvarium and visualized facial bones appear intact, without suspicious lesions. Sinuses: Retention cyst versus mucocele in right maxillary sinus is seen. Bilateral mastoid air cells are well aerated. IMPRESSION: No acute intracranial pathology. No acute skull fracture. Mild right frontal scalp swelling. Dictated by: Les Greenfield M.D. on 11/16/2024 at 12:43 Approved by: Les Greenfield M.D. on 11/16/2024 at 12:44
--- NOTE | 2024-11-16 12:22 | ED.GENADULT ---
HPI - General Adult General Chief complaint: Fall Stated complaint: fall no thinners Time Seen by Provider: 11/16/24 12:16 History of Present Illness HPI narrative: 74-year-old woman currently at [facility], history of hypertension, hypothyroid, anxiety, bipolar type 1 type 2 diabetes, hospitalization for pneumonia with discharge on October 01 presents after a fall while trying to transfer from a chair to the bed. She fell forward landing on her forehead. She complains of continued generalized weakness she thinks she may have had a small syncopal episode she is not entirely sure. Affect is flat she seems quite slow. She has been in the emergency department on October 30, 2024 and with complaints of weakness and no specific etiology identified. Lactic acid has been elevated on the and again on the secondary to dehydration with no signs of bacterial secondary infection responded well to fluids. Procalcitonin was not elevated are going to against significant infection, troponin has not been elevated. Med list indicates she is taking day valproic acid however levels were undetectable on October 31. TSH was slightly depressed at 0.4-8 on October 31. Imaging has included CT scans of the chest abdomen and pelvis, chest x-rays CT scans all of which have been fairly benign. Related Data Home Medications ?Medication ?Instructions ?Recorded ?Confirmed levothyroxine 137 mcg tablet 137 mcg PO DAILY 12/03/23 11/10/24 metformin 500 mg tablet 500 mg PO BID 12/03/23 11/10/24 doxylamine succinate 25 mg tablet 25 mg PO BEDTIME 01/01/24 11/10/24 (Sleep Aid (doxylamine)) sitagliptin phosphate 100 mg 100 mg PO DAILY 01/01/24 11/10/24 tablet (Januvia) biotin 1 mg capsule 1 mg PO DAILY 03/03/24 11/10/24 empagliflozin 10 mg tablet 10 mg PO DAILY 03/03/24 11/10/24 nystatin 100,000 unit/gram topical 1 applic topical DAILY 03/03/24 11/10/24 cream polyethylene glycol 3350 17 17 g PO BID 03/03/24 11/10/24 gram/dose oral powder (Miralax) acetaminophen 325 mg tablet 650 mg PO Q6H pain 04/21/24 11/10/24 magnesium oxide 250 mg PO DAILY 04/21/24 11/10/24 nystatin 100,000 unit/gram topical 1 applic topical DAILY 04/21/24 11/10/24 ointment clonidine HCl 0.2 mg tablet 0.2 mg PO BEDTIME 07/21/24 11/10/24 olanzapine 10 mg tablet 10 mg PO ONCE PM 07/21/24 11/10/24 Previous Rx's ?Medication ?Instructions ?Recorded DISABLED PARKING PLACARD #1 ea 11/24/22 Depends Incontinence supplies #100 ea 03/15/23 Prevail Plus pads #90 ea 03/15/23 oxybutynin chloride 5 mg tablet 5 mg PO BID #60 tabs 06/15/23 clonidine HCl 0.1 mg tablet 0.2 mg (2 x 0.1 mg) PO BEDTIME #60 07/09/23 tabs magnesium 250 mg tablet 250 mg PO DAILY #10 tabs 07/24/23 allopurinol 300 mg tablet See Rx Instructions .Route 08/01/23 .COMPLEX #90 tabs atorvastatin 40 mg tablet 40 mg PO BEDTIME #90 tabs 12/17/23 bisacodyl 10 mg rectal suppository 10 mg [place] DAILY PRN constipation 12/17/23 #30 ea simethicone 80 mg chewable tablet See Rx Instructions PO 6XD #30 tabs 12/17/23 ropinirole 0.25 mg tablet 0.5 mg (2 x 0.25 mg) PO DAILY #180 04/21/24 tabs olanzapine 10 mg-samidorphan 10 mg 1 tab PO DAILY #30 tabs 06/24/24 tablet azithromycin 250 mg tablet 250 mg PO DAILY #3 tabs 10/01/24 benzonatate 100 mg capsule 100 mg PO TID PRN Cough #30 caps 10/01/24 cefdinir 300 mg capsule 300 mg PO BID #6 caps 10/01/24 triamcinolone acetonide 0.1 % 1 applic topical BID #15 grams 10/13/24 topical cream Lactobacillus acidophilus 10 10,000 mmu cells PO DAILY #14 caps 10/24/24 billion cell capsule glucose monitor #1 ea 10/24/24 glucose test strips #100 ea 10/24/24 lancets #100 ea 10/24/24 gabapentin 300 mg capsule See Rx Instructions .Route 11/03/24 .COMPLEX #120 caps divalproex 250 mg tablet,extended 250 mg PO DAILY #30 tabs 11/06/24 release 24 hr divalproex 500 mg tablet,extended See Rx Instructions PO BEDTIME #60 11/06/24 release 24 hr (Depakote ER) tabs Allergies Allergy/AdvReac Type Severity Reaction Status Date / Time Sulfa (Sulfonamide Allergy Mild RASH Verified 11/16/24 12:20 Antibiotics) haloperidol (HALOPERIDOL) Allergy Unknown Verified 11/16/24 12:20 lithium (LITHIUM) Allergy Unknown Verified 11/16/24 12:20 risperidone (RISPERIDONE) Allergy Unknown Verified 11/16/24 12:20 lidocaine AdvReac Intermediate gait Verified 11/16/24 12:20 instability perphenazine AdvReac uncontrolled Verified 11/16/24 12:20 hand shaking Review of Systems Review of Systems Narrative: Pertinent positive and negative findings as per HPI Patient History Medical History Bipolar 1 disorder, depressed, partial remission Psychosis COVID-19 Bipolar 1 disorder, mixed, full remission Hyperlipidemia DM type 2 (diabetes mellitus, type 2) Bipolar I disorder, most recent episode depressed, severe without psychotic features Bipolar disorder (1989) Fractures (2007) Foot pain (~2002) Ankle pain (2007) Peripheral neuropathy (2013) Hayfever (~1989) Sleep apnea (08/2015) Hypertension Hypothyroidism Urinary incontinence Cataract (2011) Chicken pox Measles CTS (carpal tunnel syndrome) (1987) RLS (restless legs syndrome) (1999) Anxiety (1994) Depression (1961) Surgical History Anesthesia complication History of surgery (04/2008) History of carpal tunnel repair (~1997) Family History Child Age: 52 Arthritis Mother Heart disease Family history of fraternal twins Family history of identical twins Levin gestation with first Social History marital status: number of children: 2 household members: none lives independently: Yes caregiver/support person: No housing: house pets and animals: No education level: high school occupational status: unemployed leisure activities: reading and volunteer work other: walk,garden,visit friends,christian,word puzzles seatbelt use: always water heater temp set < 120 deg: Yes working smoke detector in home: Yes fire extinguisher in home: Yes carbon monox detector in home: Yes second hand exposure: No alcohol intake: current substance use type: does not use during the past year weight has: other well-balanced diet: rarely or never daily servings fruits/ve-1 caffeine: Yes eating out: 1-3 times/week frequency: 3-4 times per week duration: 15-30 minutes/day alcohol intake frequency: holidays/special occasions only Exam Initial Vital Signs Initial Vital Signs: Vital Signs Pulse Rate 87 11/16/24 12:17 Respiratory Rate 22 11/16/24 12:17 Blood Pressure 124/58 L 11/16/24 12:17 Pulse Oximetry 92 11/16/24 12:17 General: Chronically ill-appearing, somewhat disheveled, flat affect minimally interactive with direct questioning HEENT: Dry mucous membranes, normal sclera with reactive pupils, she has a large abrasion/can to vision to the midportion of the forehead. No obvious step-off for pain to palpation along the cervical spine Respiratory: Lungs are clear to auscultation, no wheezing no rales no rhonchi. Shallow breaths but what is there is symmetrical Cardiac: Regular rate and rhythm no murmurs no bruits Abdomen: Soft, patient indicates somewhere in the left area of her abdomen that there seems to be some pain, I am not able to localize this on palpation. There was no rebound or guarding Skin: Pale, no cellulitis Neurologic: Globally weak, Grossly neurologically intact with no obvious asymmetries or abnormalities Extremities: No trauma, Psych: Flat affect, poor eye contact, slowed and very quiet and speech Course Orders Ordered: ED Orders 11/16/24 12:17 Complete Blood Count AUTO DIFF Stat Comprehensive Metabolic Panel Stat Lactate (Lactic Acid) Stat Lipase Stat Magnesium Stat NT-proBNP (BNP-Adult 18+) Stat Procalcitonin Stat Troponin I Stat 11/16/24 12:21 CT cervical spine wo con Stat CT head/brain wo con Stat 11/16/24 14:19 Urinalysis and Microscopic Stat Urine Culture Stat Discontinued Medications Bacitracin (Bacitracin Oint 0.9 Gm Pckt) 1 applic TOP NOW ONE Stop: 11/16/24 15:43 Last Admin: 11/16/24 15:43 Dose: 1 applic Documented By: RLS Sodium Chloride (Normal Saline 0.9%) 1,000 mls @ 1,000 mls/hr IV BOLUS ONE Stop: 11/16/24 13:18 Last Infusion: 11/16/24 15:12 Dose: Infused Documented By: Admin: 11/16/24 13:17 Dose: 1,000 mls/hr Documented By: Vital Signs Vital signs: Vital Signs - 8 hr 11/16/24 12:17 11/16/24 12:20 11/16/24 12:36 Temperature 98.7 F Pulse Rate 87 86 81 Respiratory Rate 22 20 26 H Blood Pressure 124/58 L 124/58 L 106/52 L Pulse Oximetry 92 92 92 Oxygen Delivery Method Room Air 11/16/24 13:08 11/16/24 13:30 11/16/24 13:30 Temperature Pulse Rate 80 79 Respiratory Rate 18 18 Blood Pressure 112/59 L 113/57 L Pulse Oximetry 93 95 Oxygen Delivery Method Room Air 11/16/24 14:00 11/16/24 14:00 11/16/24 14:30 Temperature 98.1 F Pulse Rate 78 73 Respiratory Rate 20 20 Blood Pressure 114/58 L Pulse Oximetry 96 97 Oxygen Delivery Method Room Air 11/16/24 14:30 11/16/24 15:00 11/16/24 15:00 Temperature 98.1 F Pulse Rate 75 Respiratory Rate 23 Blood Pressure 115/59 L 116/56 L Pulse Oximetry 99 Oxygen Delivery Method 11/16/24 15:30 11/16/24 15:30 Temperature 98.2 F Pulse Rate 75 Respiratory Rate 20 Blood Pressure 113/56 L Pulse Oximetry 98 Oxygen Delivery Method Room Air Medical Decision Making Lab Data 11/16/24 12:17 11/16/24 12:17 Labs: Lab Results 11/16/24 11/16/24 11/16/24 Range/Units 12:17 14:19 14:24 WBC 8.4 (4.5-11.0) X10^3/uL RBC 3.78 L (4.0-5.2) X10^6/uL Hgb 12.7 (12.0-16.0) g/dL Hct 37.7 (36-46) % MCV 99.8 (80-100) fL MCH 33.6 (26-34) PG MCHC 33.6 (30-36) % RDW 16.5 H (11.6-14.8) % Plt Count 129 L (150-400) X10^3/uL Neut % (Auto) 57.1 (50-75) % Lymph % (Auto) 30.3 (25-40) % [place] % (Auto) 8.4 (3-14) % Eos % (Auto) 3.2 (2-4) % Baso % (Auto) 1.0 (0-2) % Neut # (Auto) 4800 (5225-1189) /uL Lymph # (Auto) 2600 (8660-9578) /uL [place] # (Auto) 700 (0-900) /uL Eos # (Auto) 300 (0-450) /uL Baso # (Auto) 100 (0-100) /uL Sodium 140 (137-145) mmol/L Potassium 4.5 (3.4-5.1) mmol/L Chloride 102 (98-107) mmol/L Carbon Dioxide 28 (22-32) mmol/L BUN 12 (7-17) mg/dL Creatinine 0.92 (0.52-1.04) mg/dL Estimated GFR > 60 (>60) mL/min BUN/Creatinine Ratio 13.0 (6-22) Glucose 135 H (70-99) mg/dL Lactate 3.0 H 1.9 (0.7-2.1) mmol/L Calcium 9.6 (8.4-10.2) mg/dL Magnesium 1.6 (1.6-2.3) mg/dL Total Bilirubin 0.5 (0.2-1.3) mg/dL AST 38 H (14-36) IU/L ALT 24 (<35) IU/L Alkaline Phosphatase 61 (38-126) U/L Troponin I < 0.012 (0.01-0.034) ng/mL NT-Pro-B Natriuret Pep 100 (<125) pg/mL Total Protein 6.8 (6.3-8.2) g/dL Albumin 4.0 (3.5-5.0) g/dL Globulin 2.8 (1.7-4.1) g/dL Albumin/Globulin Ratio 1.4 (1.0-2.8) Lipase 68 (23-300) U/L Procalcitonin 0.077 (<0.5) ng/mL Urine Color Yellow Urine Appearance Clear Urine pH 6.0 (4.5-8.0) Ur Specific [place] 1.020 (1.000-1.035) Urine Protein 1+ H (Negative) Urine Glucose (UA) 3+ H (Negative) g/dL Urine Ketones Trace H (NEGATIVE) Urine Occult Blood Negative (Negative) Urine Nitrate Negative (Negative) Urine Bilirubin Negative (NEGATIVE) Urine Urobilinogen 0.2 (0.2) E.U./dL Ur Leukocyte Esterase Negative (NEGATIVE) Urine RBC None seen (0-5/HPF) Urine WBC 5-10/hpf H (0-5/HPF) Ur Squamous Epith Cells None seen (0-5/HPF) Ur Renal Epithelial Cell 0-1/hpf (0-1/HPF) Urine Bacteria None seen (None) Urine Yeast 30-100/hpf H (None) Ur Culture Indicated? Specimen cultured Vol Urine Centrifuged 10ml (spun) MDM Narrative Medical decision making narrative: CC: Progressive weakness Complicating co-morbidities: currently at [facility], history of hypertension, hypothyroid, anxiety, bipolar type 1 type 2 diabetes, hospitalization for pneumonia with discharge on October 01 Data collected from: patient Social determinants of health that may influence the patients condition: Recurrent visits to the ER for similar findings Medical records reviewed: Discharge from the hospital on October 01 for pneumonias reviewed. Since then she has had 5 ER visits, 2 urgent care visits and 1 primary care visit Differential considered: Failure to thrive, sepsis, acute coronary syndrome, kidney function abnormalities, electrolyte abnormalities Exam documented above, pertinent findings include: Abrasion/contusion to her forehead. Flat affect that is similar to previous visits. She appears overall fatigued but in no obvious Lab Test results independently reviewed as above. Pertinent findings: CBC is unremarkable Chemistries are reassuring. Normal renal function Lactic was again elevated and came down nicely with fluid resuscitation Troponin is undetectable No evidence of heart failure No evidence of significant infection based on normal procalcitonin Urine shows occasional white cell occasional yeast you are be cultured so was not a catheterized sample, we will not treat and less cultures returned positive Imaging studies independently reviewed: CT scan of the head done for fall and trauma to the forehead shows no acute abnormality CT scan of the cervical spine shows no acute fractures Re-evaluations: Patient is much more alert, daughter is now available. She is quite frustrated with continued visits for the same findings. She is wondering if medications might be causing problems. Notes that her mom has not had any psychiatric disturbances or hospitalizations for her bipolar disorder in quite awhile but at this point she is so sleepy she can not functionally participate in her own life which is why she is not drinking enough which is why she is dehydrated and then is weak and is falling. Apparently there has been a couple of phone calls to primary care physician with minimal responses. Discussion: 74-year-old woman with continued weakness, sleeping through much of the day, not drinking enough to stay hydrated with continued falls. There is no indication of intracranial hemorrhage, skull fracture or cervical spine injury today. Reviewed medication list with her daughter to consider the probability of polypharmacy as a contributing factor to her overall sleepiness and decreased functioning. We will recommend changes as below No changes to empaglifozin, metformin, sitagliptin, magnesium, biotin, Synthroid, atorvastatin, Tylenol, nystatin, MiraLax, bisacodyl, simethicone, Please make sure she is taking her Depakote 1250 at bedtime. On October 31 her Depakote level was undetectable -decrease oxybutynin from 10 mg b.i.d. to 5 mg at bedtime monitor urinary incontinence -decrease gabapentin from 300 mg in the morning and 900 mg at night to 300 mg morning and night. Monitor pain complaints -decrease olanzapine 10 mg to olanzapine 5 mg at bedtime monitor mood Discontinue doxylamine Discontinue Catapres monitor daily blood pressures to review with PCP at next visit Discontinue ropinirole monitor complaints of restless leg Discharge Plan Departure Patient Disposition: Home Clinical Impression: Polypharmacy, Hypersomnolence Fall Qualifiers: Encounter type: initial encounter Qualified Code(s): W19.XXXA - Unspecified fall, initial encounter Activity Restrictions/Additional Instructions: Thank you for coming in today Your daughter and I had a nice discussion regarding all of the medications that you are using it [facility] and home. She is concerned that you were sleeping all day long, not interested in eating or drinking which is causing you to become dehydrated which is then causing your falls. I have reviewed all of the medications and a making the following recommendations No changes to empaglifozin, metformin, sitagliptin, magnesium, biotin, Synthroid, atorvastatin, Tylenol, nystatin, MiraLax, bisacodyl, simethicone, Please make sure she is taking her Depakote 1250 at bedtime. On October 31 her Depakote level was undetectable -decrease oxybutynin from 10 mg b.i.d. to 5 mg at bedtime monitor urinary incontinence -decrease gabapentin from 300 mg in the morning and 900 mg at night to 300 mg morning and night. Monitor pain complaints -decrease olanzapine 10 mg to olanzapine 5 mg at bedtime monitor mood Discontinue doxylamine Discontinue Catapres monitor daily blood pressures to review with PCP at next visit Discontinue ropinirole monitor complaints of restless leg You will need to schedule an ER follow up appointment with your primary care physician to review all of the medications and changes above If you find that you are getting worse or develop any new symptoms, please feel free to return to the emergency department for further evaluation. Prescriptions: No Action Januvia 100 mg tablet 100 mg PO DAILY Sleep Aid (doxylamine) 25 mg tablet 25 mg PO BEDTIME clonidine HCl 0.2 mg tablet 0.2 mg PO BEDTIME olanzapine 10 mg tablet 10 mg PO ONCE PM (DME) glucose monitor See Rx Instructions .Route .MEDSUPPLY Qty: 1 0RF Rx Instructions: As directed to check glucose twice daily (DME) glucose test strips See Rx Instructions .Route .MEDSUPPLY Qty: 100 3RF Rx Instructions: As directed to test glucose twice daily (DME) lancets See Rx Instructions .Route .MEDSUPPLY Qty: 100 3RF Rx Instructions: As directed to test glucose twice daily Lactobacillus acidophilus 10 billion cell capsule 10,000 mmu cells PO DAILY Qty: 14 0RF triamcinolone acetonide 0.1 % cream 1 applic topical BID Qty: 15 0RF (DME) DISABLED PARKING PLACARD See Rx Instructions .Route .MEDSUPPLY Qty: 1 0RF Rx Instructions: 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 levothyroxine 137 mcg tablet 137 mcg PO DAILY metformin 500 mg tablet 500 mg PO BID acetaminophen 325 mg tablet 650 mg PO Q6H Patient Comments: has not taken for months nystatin 100,000 unit/gram ointment 1 applic topical DAILY magnesium oxide 250 mg magnesium tablet 250 mg PO DAILY ropinirole 0.25 mg tablet 0.5 mg PO DAILY Qty: 180 2RF olanzapine-samidorphan 10-10 mg tablet 1 tab PO DAILY Qty: 30 3RF clonidine HCl 0.1 mg tablet 0.2 mg PO BEDTIME Qty: 60 3RF biotin 1 mg capsule 1 mg PO DAILY nystatin 100,000 unit/gram cream 1 applic topical DAILY polyethylene glycol 3350 [Miralax] 17 gram/dose powder 17 g PO BID empagliflozin 10 mg tablet 10 mg PO DAILY (DME) Depends Incontinence supplies XL See Rx Instructions .Route .MEDSUPPLY Qty: 100 3RF Rx Instructions: for three times daily changes (DME) Prevail Plus pads 6 See Rx Instructions .Route .MEDSUPPLY Qty: 90 3RF Rx Instructions: As directed oxybutynin chloride 5 mg tablet 5 mg PO BID Qty: 60 2RF allopurinol 300 mg tablet See Rx Instructions .ROUTE .COMPLEX Qty: 90 2RF Dose Instruction: TAKE 1 TABLET BY MOUTH DAILY FOR GOUT Rx Instructions: TAKE 1 TABLET BY MOUTH DAILY FOR GOUT atorvastatin 40 mg tablet 40 mg PO BEDTIME Qty: 90 0RF bisacodyl 10 mg suppository 10 mg WV DAILY PRN (Reason: constipation) Qty: 30 0RF simethicone 80 mg tablet,chewable See Rx Instructions PO 6XD Qty: 30 0RF Rx Instructions: 160mg orally x 6hours prn for GAS pain; gabapentin 300 mg capsule See Rx Instructions .ROUTE .COMPLEX Qty: 120 3RF Rx Instructions: 300 mg po qam and 900 mg po qpm; divalproex 250 mg tablet extended release 24 hr 250 mg PO DAILY Qty: 30 1RF Rx Instructions: Take 250mg in addition to 2 x 500mg tablets for total dose 1250mg. divalproex [Depakote ER] 500 mg tablet extended release 24 hr See Rx Instructions PO BEDTIME Qty: 60 2RF Rx Instructions: take 2 x500mg along with 250mg tablet [place] dose [place] 1250mg. magnesium 250 mg tablet 250 mg PO DAILY Qty: 10 0RF benzonatate 100 mg Capsule 100 mg PO TID PRN (Reason: Cough) Qty: 30 0RF azithromycin 250 mg tablet 250 mg PO DAILY Qty: 3 0RF cefdinir 300 mg capsule 300 mg PO BID Qty: 6 0RF Referrals: Alina Corcoran MD [Primary Care Provider, Family Practice] Stand Alone Forms: Patient Portal/API
[2024-11-16 12:27] LABS: Add Manual Diff / Slide Review NO; Hematocrit 37.7 % (36-46); Hemoglobin 12.7 g/dL (12.0-16.0); Lymphocytes Absolute Auto 2600 /uL (1100-4500); Mean Corpuscular HGB Conc 33.6 % (30-36); Mean Corpuscular Hemoglobin 33.6 PG (26-34); Mean Corpuscular Volume 99.8 fL (80-100); Platelet Count 129 X10^3/uL (150-400)
[2024-11-16 12:50] LABS: Alanine Aminotransferase 24 IU/L (<35); Albumin 4.0 g/dL (3.5-5.0); Albumin Globulin Ratio 1.4 (1.0-2.8); Alkaline Phosphatase 61 U/L (38-126); Blood Urea Nitrogen 12 mg/dL (7-17); Calcium 9.6 mg/dL (8.4-10.2); Carbon Dioxide 28 mmol/L (22-32); Chloride 102 mmol/L (98-107); Estimated Glomerular Filt Rate > 60 mL/min (>60); Globulin 2.8 g/dL (1.7-4.1); Glucose 135 mg/dL (70-99); HEMOLYSIS 23 (0-50); Lactate (Lactic Acid) 3.0 mmol/L (0.7-2.1); Potassium 4.5 mmol/L (3.4-5.1); Sodium 140 mmol/L (137-145); Total Protein 6.8 g/dL (6.3-8.2)
[2024-11-16 12:55] LABS: Lipase 68 U/L (23-300); Magnesium 1.6 mg/dL (1.6-2.3)
[2024-11-16 13:01] LABS: NT-proBNP (BNP-Adult 18+) 100 pg/mL (<125); Troponin I < 0.012 ng/mL (0.01-0.034)
[2024-11-16 13:06] LABS: Procalcitonin 0.077 ng/mL (<0.5)
[2024-11-16] MEDS: SODIUM CHLORIDE 0.9% 1,000 ML 1000 ML IV (13:17)
[2024-11-16 14:00] LABS: Reflexed Lactate in 2 Hours Y
[2024-11-16 14:40] LABS: Appearance Urine UA CLEAR; Bilirubin Urine UA NEGATIVE (NEGATIVE); Color Urine UA YELLOW; Glucose Urine UA 3+ g/dL (Negative); Ketones Urine UA TRACE (NEGATIVE); Leukocyte Esterase Urine UA NEGATIVE (NEGATIVE); Nitrite Urine UA NEGATIVE (Negative); Occult Blood Urine UA NEGATIVE (Negative); Protein Urine UA 1+ (Negative); Specific Gravity Urine UA 1.020 (1.000-1.035); Urobilinogen Urine UA 0.2 E.U./dL (0.2)
[2024-11-16 14:44] LABS: Lactate 2HR (Lactic Acid Rflx) 1.9 mmol/L (0.7-2.1)
[2024-11-16 14:49] LABS: pH Urine UA 6.0 (4.5-8.0)
[2024-11-16 15:01] LABS: Culture Indicated Urine Specimen Cultured
[2024-11-16] MEDS: BACITRACIN OINT 0.9 GM PCKT 1 APPLIC TOP (15:43)
--- NOTE | 2024-11-16 17:59 | PC.NURSE ---
Called [facility]. no answer. I left message to call back so I can review the instructions with the staff.
--- NOTE | 2024-11-20 19:27 | ED.FALL ---
HPI - Fall General Chief Complaint: Fall Stated Complaint: fall no thinners Time Seen by Provider: 11/16/24 12:16 Source: patient Mode of arrival: EMS Related Data Home Medications ?Medication ?Instructions ?Recorded ?Confirmed levothyroxine 137 mcg tablet 137 mcg PO DAILY 12/03/23 11/17/24 metformin 500 mg tablet 500 mg PO BID 12/03/23 11/17/24 sitagliptin phosphate 100 mg 100 mg PO DAILY 01/01/24 11/17/24 tablet (Januvia) biotin 1 mg capsule 1 mg PO DAILY 03/03/24 11/17/24 empagliflozin 10 mg tablet 10 mg PO DAILY 03/03/24 11/17/24 nystatin 100,000 unit/gram topical 1 applic topical DAILY 03/03/24 11/17/24 cream acetaminophen 325 mg tablet 650 mg PO Q6H pain 04/21/24 11/17/24 divalproex 500 mg tablet,extended 1,250 mg PO BEDTIME 11/17/24 11/17/24 release 24 hr (Depakote ER) Previous Rx's ?Medication ?Instructions ?Recorded DISABLED PARKING PLACARD #1 ea 11/24/22 Depends Incontinence supplies #100 ea 03/15/23 Prevail Plus pads #90 ea 03/15/23 clonidine HCl 0.1 mg tablet 0.2 mg (2 x 0.1 mg) PO BEDTIME #60 07/09/23 tabs magnesium 250 mg tablet 250 mg PO DAILY #10 tabs 07/24/23 allopurinol 300 mg tablet See Rx Instructions .Route 08/01/23 .COMPLEX #90 tabs atorvastatin 40 mg tablet 40 mg PO BEDTIME #90 tabs 12/17/23 glucose monitor #1 ea 10/24/24 glucose test strips #100 ea 10/24/24 lancets #100 ea 10/24/24 fluconazole 150 mg tablet 150 mg PO DAILY #1 tab 11/20/24 gabapentin 300 mg capsule 600 mg (2 x 300 mg) PO BEDTIME #90 11/20/24 caps olanzapine 10 mg-samidorphan 10 mg 0.5 tab PO DAILY #30 tabs 11/20/24 tablet oxybutynin chloride 5 mg tablet 5 mg PO BID #60 tabs 11/20/24 Allergies Allergy/AdvReac Type Severity Reaction Status Date / Time Sulfa (Sulfonamide Allergy Mild RASH Verified 11/16/24 12:20 Antibiotics) haloperidol (HALOPERIDOL) Allergy Unknown Verified 11/16/24 12:20 lithium (LITHIUM) Allergy Unknown Verified 11/16/24 12:20 risperidone (RISPERIDONE) Allergy Unknown Verified 11/16/24 12:20 lidocaine AdvReac Intermediate gait Verified 11/16/24 12:20 instability perphenazine AdvReac uncontrolled Verified 11/16/24 12:20 hand shaking Patient History Medical History Bipolar 1 disorder, depressed, partial remission Psychosis COVID-19 Bipolar 1 disorder, mixed, full remission Hyperlipidemia DM type 2 (diabetes mellitus, type 2) Bipolar I disorder, most recent episode depressed, severe without psychotic features Bipolar disorder (1989) Fractures (2007) Foot pain (~2002) Ankle pain (2007) Peripheral neuropathy (2013) Hayfever (~1989) Sleep apnea (08/2015) Hypertension Hypothyroidism Urinary incontinence Cataract (2011) Chicken pox Measles CTS (carpal tunnel syndrome) (1987) RLS (restless legs syndrome) (1999) Anxiety (1994) Depression (1961) Surgical History Anesthesia complication History of surgery (04/2008) History of carpal tunnel repair (~1997) Family History Child Age: 52 Arthritis Mother Heart disease Family history of fraternal twins Family history of identical twins Levin gestation with first Social History marital status: number of children: 2 household members: none lives independently: Yes caregiver/support person: No housing: house pets and animals: No education level: high school occupational status: unemployed leisure activities: reading and volunteer work other: walk,garden,visit friends,latter-day,word puzzles seatbelt use: always water heater temp set < 120 deg: Yes working smoke detector in home: Yes fire extinguisher in home: Yes carbon monox detector in home: Yes Smoking Status: Never smoker second hand exposure: No alcohol intake: never substance use type: does not use during the past year weight has: other well-balanced diet: rarely or never daily servings fruits/ve-1 caffeine: Yes eating out: 1-3 times/week frequency: 3-4 times per week duration: 15-30 minutes/day alcohol intake frequency: holidays/special occasions only Exam Initial Vital Signs Initial Vital Signs: Vital Signs Pulse Rate 87 11/16/24 12:17 Respiratory Rate 22 11/16/24 12:17 Blood Pressure 124/58 L 11/16/24 12:17 Pulse Oximetry 92 11/16/24 12:17 Course Orders Ordered: Discontinued Medications Bacitracin (Bacitracin Oint 0.9 Gm Pckt) 1 applic TOP NOW ONE Stop: 11/16/24 15:43 Last Admin: 11/16/24 15:43 Dose: 1 applic Documented By: GIAN Sodium Chloride (Normal Saline 0.9%) 1,000 mls @ 1,000 mls/hr IV BOLUS ONE Stop: 11/16/24 13:18 Last Infusion: 11/16/24 15:12 Dose: Infused Documented By: Admin: 11/16/24 13:17 Dose: 1,000 mls/hr Documented By: MADELIN MDM - Fall Lab Data 11/16/24 12:17 11/16/24 12:17 Labs: Lab Results 11/16/24 11/16/24 11/16/24 Range/Units 12:17 14:19 14:24 WBC 8.4 (4.5-11.0) X10^3/uL RBC 3.78 L (4.0-5.2) X10^6/uL Hgb 12.7 (12.0-16.0) g/dL Hct 37.7 (36-46) % MCV 99.8 (80-100) fL MCH 33.6 (26-34) PG MCHC 33.6 (30-36) % RDW 16.5 H (11.6-14.8) % Plt Count 129 L (150-400) X10^3/uL Neut % (Auto) 57.1 (50-75) % Lymph % (Auto) 30.3 (25-40) % [place]ether % (Auto) 8.4 (3-14) % Eos % (Auto) 3.2 (2-4) % Baso % (Auto) 1.0 (0-2) % Neut # (Auto) 4800 (4996-4812) /uL Lymph # (Auto) 2600 (9385-4869) /uL Meriwether # (Auto) 700 (0-900) /uL Eos # (Auto) 300 (0-450) /uL Baso # (Auto) 100 (0-100) /uL Sodium 140 (137-145) mmol/L Potassium 4.5 (3.4-5.1) mmol/L Chloride 102 (98-107) mmol/L Carbon Dioxide 28 (22-32) mmol/L BUN 12 (7-17) mg/dL Creatinine 0.92 (0.52-1.04) mg/dL Estimated GFR > 60 (>60) mL/min BUN/Creatinine Ratio 13.0 (6-22) Glucose 135 H (70-99) mg/dL Lactate 3.0 H 1.9 (0.7-2.1) mmol/L Calcium 9.6 (8.4-10.2) mg/dL Magnesium 1.6 (1.6-2.3) mg/dL Total Bilirubin 0.5 (0.2-1.3) mg/dL AST 38 H (14-36) IU/L ALT 24 (<35) IU/L Alkaline Phosphatase 61 (38-126) U/L Troponin I < 0.012 (0.01-0.034) ng/mL NT-Pro-B Natriuret Pep 100 (<125) pg/mL Total Protein 6.8 (6.3-8.2) g/dL Albumin 4.0 (3.5-5.0) g/dL Globulin 2.8 (1.7-4.1) g/dL Albumin/Globulin Ratio 1.4 (1.0-2.8) Lipase 68 (23-300) U/L Procalcitonin 0.077 (<0.5) ng/mL Urine Color Yellow Urine Appearance Clear Urine pH 6.0 (4.5-8.0) Ur Specific Morgan 1.020 (1.000-1.035) Urine Protein 1+ H (Negative) Urine Glucose (UA) 3+ H (Negative) g/dL Urine Ketones Trace H (NEGATIVE) Urine Occult Blood Negative (Negative) Urine Nitrate Negative (Negative) Urine Bilirubin Negative (NEGATIVE) Urine Urobilinogen 0.2 (0.2) E.U./dL Ur Leukocyte Esterase Negative (NEGATIVE) Urine RBC None seen (0-5/HPF) Urine WBC 5-10/hpf H (0-5/HPF) Ur Squamous Epith Cells None seen (0-5/HPF) Ur Renal Epithelial Cell 0-1/hpf (0-1/HPF) Urine Bacteria None seen (None) Urine Yeast 30-100/hpf H (None) Ur Culture Indicated? Specimen cultured Vol Urine Centrifuged 10ml (spun) Discharge Plan Departure Patient Disposition: Home Clinical Impression: Polypharmacy, Hypersomnolence Fall Qualifiers: Encounter type: initial encounter Qualified Code(s): W19.XXXA - Unspecified fall, initial encounter Activity Restrictions/Additional Instructions: Thank you for coming in today Your daughter and I had a nice discussion regarding all of the medications that you are using it [facility]. She is concerned that you were sleeping all day long, not interested in eating or drinking which is causing you to become dehydrated which is then causing your falls. I have reviewed all of the medications and a making the following recommendations No changes to empaglifozin, metformin, sitagliptin, magnesium, biotin, Synthroid, atorvastatin, Tylenol, nystatin, MiraLax, bisacodyl, simethicone, Please make sure she is taking her Depakote 1250 at bedtime. On October 31 her Depakote level was undetectable -decrease oxybutynin from 10 mg b.i.d. to 5 mg at bedtime monitor urinary incontinence -decrease gabapentin from 300 mg in the morning and 900 mg at night to 300 mg morning and night. Monitor pain complaints -decrease olanzapine 10 mg to olanzapine 5 mg at bedtime monitor mood Discontinue doxylamine Discontinue Catapres monitor daily blood pressures to review with PCP at next visit Discontinue ropinirole monitor complaints of restless leg You will need to schedule an ER follow up appointment with your primary care physician to review all of the medications and changes above If you find that you are getting worse or develop any new symptoms, please feel free to return to the emergency department for further evaluation. Prescriptions: New fluconazole 150 mg tablet 150 mg PO DAILY Qty: 1 0RF No Action Januvia 100 mg tablet 100 mg PO DAILY (DME) glucose monitor See Rx Instructions .Route .MEDSUPPLY Qty: 1 0RF Rx Instructions: As directed to check glucose twice daily (DME) glucose test strips See Rx Instructions .Route .MEDSUPPLY Qty: 100 3RF Rx Instructions: As directed to test glucose twice daily (DME) lancets See Rx Instructions .Route .MEDSUPPLY Qty: 100 3RF Rx Instructions: As directed to test glucose twice daily (DME) DISABLED PARKING PLACARD See Rx Instructions .Route .MEDSUPPLY Qty: 1 0RF Rx Instructions: 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 levothyroxine 137 mcg tablet 137 mcg PO DAILY metformin 500 mg tablet 500 mg PO BID acetaminophen 325 mg tablet 650 mg PO Q6H Patient Comments: has not taken for months clonidine HCl 0.1 mg tablet 0.2 mg PO BEDTIME Qty: 60 3RF biotin 1 mg capsule 1 mg PO DAILY nystatin 100,000 unit/gram cream 1 applic topical DAILY empagliflozin 10 mg tablet 10 mg PO DAILY (DME) Depends Incontinence supplies XL See Rx Instructions .Route .MEDSUPPLY Qty: 100 3RF Rx Instructions: for three times daily changes (DME) Prevail Plus pads 6 See Rx Instructions .Route .MEDSUPPLY Qty: 90 3RF Rx Instructions: As directed allopurinol 300 mg tablet See Rx Instructions .ROUTE .COMPLEX Qty: 90 2RF Dose Instruction: TAKE 1 TABLET BY MOUTH DAILY FOR GOUT Rx Instructions: TAKE 1 TABLET BY MOUTH DAILY FOR GOUT atorvastatin 40 mg tablet 40 mg PO BEDTIME Qty: 90 0RF magnesium 250 mg tablet 250 mg PO DAILY Qty: 10 0RF divalproex [Depakote ER] 500 mg tablet extended release 24 hr 1,250 mg PO BEDTIME gabapentin 300 mg Capsule 600 mg PO BEDTIME Qty: 90 0RF olanzapine-samidorphan 10-10 mg Tablet 0.5 tab PO DAILY Qty: 30 0RF oxybutynin chloride 5 mg Tablet 5 mg PO BID Qty: 60 0RF Referrals: Alina Corcoran MD [Primary Care Provider, Family Practice] Stand Alone Forms: Patient Portal/API
== END 2024-11-16 18:35 | disposition home or self-care (01) ==
PROVIDERS: Emergency Provider Emergency Medicine; PCP Family Medicine
DX: R40.0 Somnolence (principal); S00.81XA Abrasion of other part of head, initial encounter; E86.0 Dehydration; W07.XXXA Fall from chair, initial encounter
CPT/HCPCS: 36415; 70450; 72125; 80053; 81001; 83605; 83690; 83735; 83880; 84145; 84484; 85025; 87077; 87086; 96360; 96361; 99284

== ENCOUNTER → 2024-12-31 06:38 | Outpatient (ROUT) | payer MEDICARE, MEDICAID, SELFPAY ==
[2024-11-17 11:44] VITALS: BMI 39.4
[2025-01-01 05:35] LABS: Valproic Acid (Depakene) Total 89 ug/mL (50-100)
== END ==
LOC: LAB 06:38
PROVIDERS: Psychiatry & Neurology Psychiatry; PCP Family Medicine; Visit Provider Family Medicine
DX: Z79.899 Other long term (current) drug therapy (principal)
CPT/HCPCS: 36415; 80164

== ENCOUNTER 2025-01-22 04:05 | Emergency (ER) | payer MEDICARE, MEDICAID, SELFPAY ==
[2024-11-17 11:44] VITALS: BMI 39.4
[2025-01-22] VITALS (10 sets, daily range): BP systolic 129–149; BP diastolic 60–88; PULSE 89–102; RESP 18; TEMP 35.9; O2SAT 84–96
--- NOTE | 2025-01-22 04:15 | DI.RAD.S_ITS ---
PROCEDURE: XR CHEST 1V INDICATIONS: reports choking on peanut butter sandwich TECHNIQUE: One view of the chest was acquired. COMPARISON: [facility], CR, XR CHEST 2V, 11/26/2024, 10:45. [facility], CR, XR CHEST 1V, 11/17/2024, 3:10. FINDINGS: Surgical changes and devices: None. Lungs and pleura: Similar trace right pleural effusion. Eventration of the right hemidiaphragm. No pneumothorax. No consolidation. Mediastinum: Partially obscured right heart border secondary to eventration of the right hemidiaphragm. Bones and chest wall: No suspicious bony lesions. Overlying soft tissues appear unremarkable. IMPRESSION: No acute consolidation. Similar eventration of the right hemidiaphragm. Dictated by: Guzman Dumont M.D. on 01/22/2025 at 7:58 Approved by: Guzman Dumont M.D. on 01/22/2025 at 8:00
--- NOTE | 2025-01-22 04:16 | ED_ITS ---
HPI - General Adult General Chief complaint: Shortness of Breath/Dyspnea Stated complaint: chocking Time Seen by Provider: 01/22/25 04:08 Source: patient, EMS, RN notes reviewed and old records reviewed Mode of arrival: EMS Limitations: no limitations History of Present Illness HPI narrative: 74-year-old female at [facility] Living with a history of hypertension, hypothyroidism, anxiety, bipolar type 1, diabetes type 2 presents after reporting choking on a peanut butter sandwich. Patient received a peanut butter sandwich from 1 of the caregivers at the facility they went to check on her and noted that she was sort of slumped over but making eye contact they performed the Heimlich. No food came out when this was performed but patient seemed to be improved. Patient states her throat feels sore and reports that she choked. She denies any loss of consciousness none was reported. Denies chest pain denies shortness of breath. No nausea or vomiting. No GI or urinary symptoms. No new swelling in extremities. Medics note that there has been no change to voice or difficulty with breathing during their transport. Patient is on multiple medication she states majority are psychiatric medications but that she also takes medication for hypertension, dyslipidemia, hypothyroidism and diabetes. She does note that they recently decreased her thyroid medication. Patient states allergies are in the EMR. Denies daily tobacco, alcohol or recreational drugs. Related Data Home Medications ?Medication ?Instructions ?Recorded ?Confirmed levothyroxine 137 mcg tablet 137 mcg PO DAILY 12/03/23 01/09/25 metformin 500 mg tablet 500 mg PO BID 12/03/2301/09 sitagliptin phosphate 100 mg 100 mg PO DAILY 01/01/24 01/09/25 tablet (Januvia) empagliflozin 10 mg tablet 10 mg PO DAILY 03/03/2407/01 nystatin 100,000 unit/gram topical 1 applic topical DA REI 03/03/24 01/09/25 cream acetaminophen 325 mg tablet 650 mg PO Q6H pain 5 01/09/25 benzonatate 100 mg capsule 100 mg PO BID PRN 01/03/25 01/09/25 biotin PO 01/03/25 01/09/25 bisacodyl 10 mg rectal suppository 10 mg TN DAILY PRN 01/03/25 01/09/25 polyethylene glycol 3350 17 17 g PO BID 01/03/2501/09 gram/dose oral powder (Miralax) simethicone 80 mg chewable tablet 80 mg PO BID-QID PRN 01/03/25 01/09/25 (Gas Relief (simethicone)) Previous Rx's ?Medication ?Instructions ?Recorded DISABLED PARKING PLACARD #1 ea 11/24/22 Depends Incontinence supplies #100 ea 03/15/23 Prevail Plus pads #90 ea 03/15/23 clonidine HCl 0.1 mg tablet 0.2 mg (2 x 0.1 mg) PO BED TIME #60 07/09/23 tabs allopurinol 300 mg tablet See Rx Instructions .Route 0 08/01/23 .COMPLEX #90 tabs atorvastatin 40 mg tablet 40 mg PO BEDTIME #90 tabs glucose monitor #1 ea 10/24/24 glucose test strips #100 ea 10/24/24 lancets #100 ea 10/24/24 gabapentin 300 mg capsule 300 mg PO BEDTIME #90 caps 0 11/26/24 oxybutynin chloride 5 mg tablet 5 mg PO BID #60 tabs 0 12/31/24 cephalexin 500 mg capsule 500 mg PO BID #14 caps 01/09 divalproex 500 mg tablet,extended 1,000 mg (2 x 500 mg ) PO BEDTIME 01/19/25 release 24 hr (Depakote ER) #60 tabs magnesium 250 mg tablet 250 mg PO DAILY #10 tabs olanzapine 5 mg-samidorphan 10 mg 1 tab PO DAILY #30 t abs 01/22/25 tablet (Lybalvi) Allergies Allergy/AdvReac Type Severity Reaction Status Date / Time Sulfa (Sulfonamide Allergy Mild RASH Verified 01/09/25 09:49 Antibiotics) haloperidol (HALOPERIDOL) Allergy Unknown Verified 01/09/25 09:49 lithium (LITHIUM) Allergy Unknown Verified 01/09/25 09:49 risperidone (RISPERIDONE) Allergy Unknown Verified 01/09/25 09:49 lidocaine AdvReac Intermediate gait Verified 01/09/25 09:49 instability perphenazine AdvReac uncontrolled Verified 01/09/25 09:49 hand shaking Review of Systems Review of Systems ROS Unobtainable: All systems reviewed & are unremarkable except as noted in HPI and below Patient History Medical History Bipolar 1 disorder, depressed, partial remission Psychosis COVID-19 Bipolar 1 disorder, mixed, full remission Hyperlipidemia DM type 2 (diabetes mellitus, type 2) Bipolar I disorder, most recent episode depressed, severe without psychotic features Bipolar disorder (1989) Fractures (2007) Foot pain (~2002) Ankle pain (2007) Peripheral neuropathy (2013) Hayfever (~1989) Sleep apnea (08/2015) Hypertension Hypothyroidism Urinary incontinence Cataract (2011) Chicken pox Measles CTS (carpal tunnel syndrome) (1987) RLS (restless legs syndrome) (1999) Anxiety (1994) Depression (1961) Surgical History Anesthesia complication History of surgery (04/2008) History of carpal tunnel repair (~1997) Family History Child Age: 53 Arthritis Mother Heart disease Family history of fraternal twins Family history of identical twins Levin gestation with first Social History marital status: number of children: 2 household members: none lives independently: Yes caregiver/support person: No housing: house pets and animals: No education level: high school occupational status: unemployed leisure activities: reading and volunteer work other: walk,garden,visit friends,zoroastrianism,word puzzles seatbelt use: always water heater temp set < 120 deg: Yes working smoke detector in home: Yes fire extinguisher in home: Yes carbon monox detector in home: Yes second hand exposure: No alcohol intake: never substance use type: does not use during the past year weight has: other well-balanced diet: rarely or never daily servings fruits/ve-1 caffeine: Yes eating out: 1-3 times/week frequency: 3-4 times per week duration: 15-30 minutes/day alcohol intake frequency: holidays/special occasions only Exam Narrative Exam Narrative: GEN: Elderly appearing female, alert and oriented x 3, patient appears to be in mild distress. HEENT: Atraumatic, pupils are equal round reactive to light, extraocular movements are intact, nares are clear, there is no conjunctival pallor. Throat is clear without any exudates, erythema, tonsillar enlargement or uvular deviation, no hoarseness, no stridor no drooling. HEART: Regular rate and rhythm without murmur, clicks, rubs. No JVD. LUNGS:Lungs clear to auscultation, no wheezes, rales, crackles, chest moves symmetrically ABD:bowel sounds normal, soft, non-tender, no guarding, rebound, rigidity, no masses noted, no hepatosplenomegaly :No CVA tenderness MSCL: Non-tender, no muscle atrophy, muscles strength 5/5 upper and lower extremities, full range of motion, normal gait NEURO:CN 2-12 intact, sensation normal. Initial Vital Signs Initial Vital Signs: Vital Signs Pulse Rate 101 H 01/22/25 04:08 Pulse Oximetry 93 01/22/25 04:08 Course Orders Ordered: ED Orders 01/22/25 04:15 XR chest 1V Stat EKG-12 Lead Stat 01/22/25 04:18 Complete Blood Count AUTO DIFF Stat Comprehensive Metabolic Panel Stat Lipase Stat Magnesium Stat NT-proBNP (BNP-Adult 18+) Stat Troponin I Stat 01/22/25 06:18 Trop I [Troponin I] Stat Vital Signs Vital signs: Vital Signs - 8 hr 01/22/25 04:08 01/22/25 04:09 01/22/25 04:09 Temperature Pulse Rate 101 H 102 H Respiratory Rate Blood Pressure 129/60 Pulse Oximetry 93 94 Oxygen Delivery Method 01/22/25 04:19 01/22/25 04:30 01/22/25 04:30 Temperature 96.7 F L Pulse Rate 97 H 101 H Respiratory Rate 18 Blood Pressure 129/60 131/66 Pulse Oximetry 96 94 Oxygen Delivery Method Room Air Room Air 01/22/25 05:00 01/22/25 05:00 01/22/25 05:30 Temperature Pulse Rate 100 H Respiratory Rate Blood Pressure 145/69 H 135/88 Pulse Oximetry 93 Oxygen Delivery Method 01/22/25 05:30 01/22/25 06:00 01/22/25 06:00 Temperature Pulse Rate 93 H 90 Respiratory Rate Blood Pressure 144/68 H Pulse Oximetry 95 94 Oxygen Delivery Method Medical Decision Making Lab Data 01/22/25 04:18 01/22/25 04:18 Labs: Lab Results 01/22/25 01/22/25 Range/Units 04:18 06:18 WBC 6.0 (4.5-11.0) X10^3/uL RBC 4.19 (4.0-5.2) X10^6/uL Hgb 13.8 (12.0-16.0) g/dL Hct 40.7 (36-46) % MCV 97.3 (80-100) fL MCH 33.0 (26-34) PG MCHC 33.9 (30-36) % RDW 15.7 H (11.6-14.8) % Plt Count 134 L (150-400) X10^3/uL Neut % (Auto) 47.7 L (50-75) % Lymph % (Auto) 43.1 H (25-40) % Piatt % (Auto) 6.3 (3-14) % Eos % (Auto) 2.1 (2-4) % Baso % (Auto) 0.8 (0-2) % Neut # (Auto) 2800 (4531-2525) /uL Lymph # (Auto) 2600 (0374-6822) /uL Piatt # (Auto) 400 (0-900) /uL Eos # (Auto) 100 (0-450) /uL Baso # (Auto) 0 (0-100) /uL Sodium 139 (137-145) mmol/L Potassium 4.4 (3.4-5.1) mmol/L Chloride 101 (98-107) mmol/L Carbon Dioxide 31 (22-32) mmol/L BUN 18 H (7-17) mg/dL Creatinine 0.94 (0.52-1.04) mg/dL Estimated GFR > 60 (>60) mL/min BUN/Creatinine Ratio 19.1 (6-22) Glucose 152 H (70-99) mg/dL Calcium 10.2 (8.4-10.2) mg/dL Magnesium 1.7 (1.6-2.3) mg/dL Total Bilirubin 0.6 (0.2-1.3) mg/dL AST 30 (14-36) IU/L ALT 17 (<35) IU/L Alkaline Phosphatase 66 (38-126) U/L Troponin I < 0.012 < 0.012 (0.01-0.034) ng/mL NT-Pro-B Natriuret Pep 192 H (<125) pg/mL Total Protein 7.5 (6.3-8.2) g/dL Albumin 4.4 (3.5-5.0) g/dL Globulin 3.1 (1.7-4.1) g/dL Albumin/Globulin Ratio 1.4 (1.0-2.8) Lipase 59 (23-300) U/L ECG Data Attestation: I personally reviewed and interpreted this ECG as follows: Prior ECG tracings: available for review Interpretation: Normal sinus rhythm rate of 100, TN 174 QRS 84 QTC of [address] elevation or depression. Patient has prior from 11/17/2024 which appears similar. MDM Narrative Medical decision making narrative: Labs show white count, normal hemoglobin platelets are 134 patient has been intermittently thrombocytopenic in the past. Electrolytes are appropriate BUN 18 creatinine of 0.94 glucose 152 troponins less than 0.012 with a BNP of 192. Patient repeat troponin is less than 0.012 Chest xray, no acute cardiopulmonary abnormality identified. EKG, normal sinus rhythm 74-year-old female had reported choking episode while eating a peanut butter sandwich received Heimlich maneuver but did not have anything out. Patient states felt like she choked. She is alert appropriate she notes little bit of sore throat denies any other symptoms. Workup does not show any acute changes chest x-ray is negative. She has had no hypoxia no changes to voice, no vomiting patient is felt appropriate for discharge home. Discharge Plan Departure Patient Disposition: Home Clinical Impression: Choking episode Instructions: DI for Choking Episode Activity Restrictions/Additional Instructions: Follow up for recheck as needed. Return to the emergency department if you have recurrent symptoms, new hoarseness or changes to voice, new chest pain or shortness of breath, cough, fever, vomiting or other new or concerning changes. Prescriptions: No Action Januvia 100 mg tablet 100 mg PO DAILY (DME) glucose monitor See Rx Instructions .Route .MEDSUPPLY Qty: 1 0RF Rx Instructions: As directed to check glucose twice daily (DME) glucose test strips See Rx Instructions .Route .MEDSUPPLY Qty: 100 3RF Rx Instructions: As directed to test glucose twice daily (DME) lancets See Rx Instructions .Route .MEDSUPPLY Qty: 100 3RF Rx Instructions: As directed to test glucose twice daily (DME) DISABLED PARKING PLACARD See Rx Instructions .Route .MEDSUPPLY Qty: 1 0RF Rx Instructions: PATIENT QUALIFIES FOR DISABLED PARKINAnmol DEGROOT levothyroxine 137 mcg tablet 137 mcg PO DAILY metformin 500 mg tablet 500 mg PO BID acetaminophen 325 mg tablet 650 mg PO Q6H Patient Comments: has not taken for months gabapentin 300 mg capsule 300 mg PO BEDTIME Qty: 90 0RF benzonatate 100 mg capsule 100 mg PO BID PRN bisacodyl 10 mg suppository 10 mg TN DAILY PRN polyethylene glycol 3350 [Miralax] 17 gram/dose powder 17 g PO BID simethicone [Gas Relief (simethicone)] 80 mg tablet,chewable 80 mg PO BID-QID PRN biotin PO cephalexin 500 mg capsule 500 mg PO BID Qty: 14 0RF divalproex [Depakote ER] 500 mg tablet extended release 24 hr 1,000 mg PO BEDTIME Qty: 60 5RF Lybalvi 5-10 mg tablet 1 tab PO DAILY Qty: 30 3RF clonidine HCl 0.1 mg tablet 0.2 mg PO BEDTIME Qty: 60 3RF nystatin 100,000 unit/gram cream 1 applic topical DAILY empagliflozin 10 mg tablet 10 mg PO DAILY (DME) Depends Incontinence supplies XL See Rx Instructions .Route .MEDSUPPLY Qty: 100 3RF Rx Instructions: for three times daily changes (DME) Prevail Plus pads 6 See Rx Instructions .Route .MEDSUPPLY Qty: 90 3RF Rx Instructions: As directed allopurinol 300 mg tablet See Rx Instructions .ROUTE .COMPLEX Qty: 90 2RF Dose Instruction: TAKE 1 TABLET BY MOUTH DAILY FOR GOUT Rx Instructions: TAKE 1 TABLET BY MOUTH DAILY FOR GOUT atorvastatin 40 mg tablet 40 mg PO BEDTIME Qty: 90 0RF oxybutynin chloride 5 mg tablet 5 mg PO BID Qty: 60 0RF magnesium 250 mg tablet 250 mg PO DAILY Qty: 10 0RF Referrals: Alina Corcoran MD [Primary Care Provider, Family Practice] Stand Alone Forms: Patient Portal/API
--- NOTE | 2025-01-22 04:21 | EKG_ITS ---
[address] [address] Test Date: 2025-01-22 Pat Name: Madhav Coats Department: Room: Gender: Female Clinical Rehab Specialist: DESI ALVAREZ : 1950 Requested By: Order Number: [id number] Reading MD: Farhan Love MD Measurements Intervals [place] Rate: 100 P: 44 UT: 174 QRS: 18 QRSD: 84 T: 140 QT: 310 QTc: 399 Interpretive Statements Normal sinus rhythm Cannot rule out Anterior infarct , age undetermined Electronically Signed On 01-22-2025 7:21:47 PDT by Farhan Love MD
[2025-01-22 04:26] LABS: Add Manual Diff / Slide Review NO; Hematocrit 40.7 % (36-46); Hemoglobin 13.8 g/dL (12.0-16.0); Lymphocytes Absolute Auto 2600 /uL (1100-4500); Mean Corpuscular HGB Conc 33.9 % (30-36); Mean Corpuscular Hemoglobin 33.0 PG (26-34); Mean Corpuscular Volume 97.3 fL (80-100); Platelet Count 134 X10^3/uL (150-400)
[2025-01-22 04:35] LABS: Alanine Aminotransferase 17 IU/L (<35); Albumin 4.4 g/dL (3.5-5.0); Albumin Globulin Ratio 1.4 (1.0-2.8); Alkaline Phosphatase 66 U/L (38-126); Blood Urea Nitrogen 18 mg/dL (7-17); Calcium 10.2 mg/dL (8.4-10.2); Carbon Dioxide 31 mmol/L (22-32); Chloride 101 mmol/L (98-107); Estimated Glomerular Filt Rate > 60 mL/min (>60); Globulin 3.1 g/dL (1.7-4.1); Glucose 152 mg/dL (70-99); HEMOLYSIS 33 (0-50); Lipase 59 U/L (23-300); Magnesium 1.7 mg/dL (1.6-2.3); Potassium 4.4 mmol/L (3.4-5.1); Sodium 139 mmol/L (137-145); Total Protein 7.5 g/dL (6.3-8.2)
[2025-01-22 04:47] LABS: NT-proBNP (BNP-Adult 18+) 192 pg/mL (<125); Troponin I < 0.012 ng/mL (0.01-0.034)
--- NOTE | 2025-01-22 06:21 | PC.NURSE ---
Pt reports felt like she was choking on a sandwich, abdominal thrust were performed and pt able to breath on her own. reports throat sore after incident.
[2025-01-22 06:48] LABS: Troponin I < 0.012 ng/mL (0.01-0.034)
== END 2025-01-22 07:11 | disposition home or self-care (01) ==
PROVIDERS: Emergency Provider Emergency Medicine; PCP Family Medicine
DX: R09.89 Other specified symptoms and signs involving the circulatory and respiratory systems (principal); E11.9 Type 2 diabetes mellitus without complications; F31.2 Bipolar disorder, current episode manic severe with psychotic features; T88.7XXA Unspecified adverse effect of drug or medicament, initial encounter; R25.1 Tremor, unspecified
CPT/HCPCS: 36415; 71045; 80053; 83690; 83735; 83880; 84484; 85025; 93005; 93010; 99214; 99283; 99284